=== PATIENT | female | born 1955 ===

== ENCOUNTER 2024-10-23 13:14 | Emergency (ER) | payer OTHER, BC ==
--- OUTSIDE RECORDS SUMMARY | 2024-10-23 13:33 | XMS REPORT | Continuity of Care Document ---
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 ophthalmic solution 1 drop carboxymeth ylcellulose PF (Refresh Plus) 0.5 % ophthalmic solution 1 drop 09-27 09:00: 00 09-28 03:09 :34 No 4803 1[drp] [id number] 3D 1 drop, Both Eyes, 3 times daily, First dose on Thu09/27/24 at 0900, Indication s: Xerophthal vinny (Dry Eye) [facility] insulin glargine (Lantus) pen 45 Units insulin glargine (Lantus) pen 45 Units 09-27 07:00: 00 09-29 09:22 :13 No 137 45U 45 Units, Subcutaneo us, Every morning, First dose (after last modificati on) on Thu09/27/24 at 0700, Indication s: Type 2 Diabetes Mellitus, Hold if pt is not eating or blood sugar less than 110. If held x3 doses , please notify or [facility] insulin glargine (Lantus) injection 42 Units insulin glargine (Lantus) injection 42 Units 09-26 18:00: 00 09-29 09:22 :20 No 137 42U 42 Units, Subcutaneo us, Every evening, First dose on Thu09/26/24 at 1800, Indication s: Type 2 Diabetes Mellitus [facility] melatonin tablet 3 mg melatonin tablet 3 mg 09-23 00:13: 45 Yes 12 3mg Q24H 3 mg, Oral, Daily PRN, sleep, Starting on Thu09/23/24 at 0013, Indication s: Insomnia [facility] insulin glargine (Lantus) pen 42 Units insulin glargine (Lantus) pen 42 Units 09-22 21:00: 00 09-26 15:25 :45 No 137 42U Q.5D 42 Units, Subcutaneo us, 2 times daily, First dose (after last modificati on) on Thu09/22/24 at 2100, Indication s: Type 2 Diabetes Mellitus, Hold if pt is not eating or blood sugar less than 110. If held x3 doses , please notify or KYRA Pack methocarbam ol (Robaxin) tablet 750 mg methocarbam ol (Robaxin) tablet 750 mg 09-22 11:20: 41 Yes 149 750mg Q8H 750 mg, Oral, Every 8 hours PRN, muscle spasms, Starting on Thu09/22/24 at 1120, Indication s: Musculoske letal Pain [facility] insulin lispro (HumaLOG, Admelog) injection 4-16 Units insulin lispro (HumaLOG, Admelog) injection 4-16 Units 09-22 09:23: 03 Yes 137 4U [id number] 3D 4-16 Units, Subcutaneo us, 3 times daily PRN, high blood sugar, with meals, Starting on Thu09/22/24 at 0923, For BG < 70, follow hypoglycem ia protocol and notify ordering provider. If patient can eat or drink, give oral carbohydra te as ordered per hypoglycem ia protocol. If patient NPO, give dextrose 50 % IV as ordered per hypoglycem ia protocol. If NPO and no IV access, give glucagon IM as ordered per hypoglycem ia protocol. Check BG every 15 minutes and repeat treatment if continued BG < 80., Correction Insulin Dosing: (DO NOT CHANGE DEFAULT SELECTION/ VALUES): Medium, BG 150-199: 3, BG 200-249: 6, BG 250-299: 9, BG >/= 300: 12, BG < 70 instructio ns: Follow Hypoglycem ia Orders, BG > 300 instructio ns: Contact Provider, BG 70-149 instructio ns: No Dose Needed, Indication s: Type 2 Diabetes Mellitus [facility]cdan[facility] clopidogrel (Plavix) tablet 75 mg clopidogrel (Plavix) tablet 75 mg 09-22 09:00: 00 Yes 586 75mg QD 75 mg, Oral, Daily, First dose (after last modificati on) on Thu09/22/24 at 0900, Indication s: Coronary Artery Bypass Graft, 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 [facility] Mcdaniels [facility] aspirin chewable tablet 81 mg aspirin chewable tablet 81 mg 09-22 09:00: 00 Yes 2525 81mg QD 81 mg, Oral, Daily, First dose (after last modificati on) on Thu09/22/24 at 0900, Indication s: Atheroscle rotic Disease, 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 [facility] furosemide (Lasix) tablet 40 mg furosemide (Lasix) tablet 40 mg 09-22 09:00: 00 09-28 14:33 :37 No 5396 40mg QD 40 mg, Oral, Daily, First dose (after last modificati on) on Thu09/22/24 at 0900, Indication s: Heart Failure, Hold for BP < 110/50 [facility] Pack heparin injection 5,000 Units heparin injection 5,000 Units 09-22 02:00: 00 09-22 09:25 :08 No 99957 5000U Q12H 5,000 Units, Subcutaneo us, Every 12 hours, First dose (after last modificati on) on Thu09/22/24 at 0200, Indication s: Prophylaxi s of Deep Vein Thrombosis in Thoracic Surgery, 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 [facility] insulin glargine (Lantus) pen 40 Units insulin glargine (Lantus) pen 40 Units 09-21 21:00: 00 09-22 09:23 :44 No 137 40U Q.5D 40 Units, Subcutaneo us, 2 times daily, First dose (after last modificati on) on Thu09/21/24 at 2100, Indication s: Type 2 Diabetes Mellitus, Hold if pt is not eating or blood sugar less than 110. If held x3 doses , please notify MD or STRAIGHT RULING MACHINE OPERATOR [facility] brimonidine (AlphaGAN) 0.2 % ophthalmic solution 1 drop brimonidine (AlphaGAN) 0.2 % ophthalmic solution 1 drop 09-21 09:00: 00 Yes 2609 1[drp] Q.5D 1 drop, Right Eye, 2 times daily, First dose (after last modificati on) on Thu09/21/24 at 0900, Indication s: Ocular Hypertensi on [facility] levoFLOXaci n (Levaquin) tablet 750 mg levoFLOXaci n (Levaquin) tablet 750 mg 09-21 09:00: 00 09-29 09:00 :00 No 3248 750mg QD 750 mg, Oral, Daily, First dose (after last modificati on) on Thu09/21/24 at 0900, For 9 days, Suspected Indication (Select all that apply): Urinary Tract Infection, Indication s: Uncomplica christian Urinary Tract Infection [facility] potassium chloride CR (Klor-Con M20) ER tablet 20 mEq potassium chloride CR (Klor-Con M20) ER tablet 20 mEq 09-21 09:00: 00 09-28 14:33 :37 No 507 20meq QD 20 mEq, Oral, Daily, First dose on Thu09/21/24 at 0900, Best given with food and plenty of water to minimize gastric irritation . Do not crush or chew., Indication s: Hypokalemi a [facility] furosemide (Lasix) tablet 40 mg furosemide (Lasix) tablet 40 mg 09-21 09:00: 00 09-21 15:58 :28 No 5396 40mg QD 40 mg, Oral, Daily, First dose on Thu09/21/24 at 0900, Indication s: Heart Failure [facility] clopidogrel (Plavix) tablet 75 mg clopidogrel (Plavix) tablet 75 mg 09-21 09:00: 00 09-21 15:58 :28 No 586 75mg QD 75 mg, Oral, Daily, First dose (after last modificati on) on Thu09/21/24 at 0900, Indication s: Coronary Artery Bypass Graft [facility] aspirin chewable tablet 81 mg aspirin chewable tablet 81 mg 09-21 09:00: 00 09-21 15:58 :28 No 2525 81mg QD 81 mg, Oral, Daily, First dose (after last modificati on) on Thu09/21/24 at 0900, Indication s: Atheroscle rotic Disease [facility] carvedilol (Coreg) tablet 3.125 mg carvedilol (Coreg) tablet 3.125 mg 09-21 08:00: 00 09-28 14:33 :37 No 87 3.125mg 3.125 mg, Oral, 2 times daily with meals, First dose (after last modificati on) on Thu09/21/24 at 0800, Indication s: Hypertensi on, Hold for SBP less than 100 and DBP less than 55 [facility] heparin injection 5,000 Units heparin injection 5,000 Units 09-21 02:00: 00 09-21 15:58 :28 No 48536 5000U Q12H 5,000 Units, Subcutaneo us, Every 12 hours, First dose (after last modificati on) on Thu09/21/24 at 0200, Indication s: Prophylaxi s of Deep Vein Thrombosis in Thoracic Surgery [facility] Mcdaniels [facility] timolol (Timoptic) 0.5 % ophthalmic solution 1 drop timolol (Timoptic) 0.5 % ophthalmic solution 1 drop 09-20 22:00: 00 Yes 2217 1[drp] Q.5D 1 drop, Both Eyes, 2 times daily, First dose on Thu09/20/24 at 2200, Indication s: Secondary Glaucoma [facility] Mcdaniels [facility] latanoprost (Xalatan) 0.005 % ophthalmic solution 1 drop latanoprost (Xalatan) 0.005 % ophthalmic solution 1 drop 09-20 22:00: 00 Yes 750 1[drp] 1 drop, Both Eyes, Nightly, First dose on Thu09/20/24 at 2200, Indication s: Glaucoma [facility] Mcdaniels [facility] sennosides (Senokot) tablet 17.2 mg sennosides (Senokot) tablet 17.2 mg 09-20 22:00: 00 09-26 16:00 :40 No 6645 2{tbl} Q.5D 17.2 mg (2 tablet), Oral, 2 times daily, First dose on Thu09/20/24 at 0, Indication s: Bowel Evacuation [facility] Mcdaniels [facility] methocarbam ol (Robaxin) tablet 750 mg methocarbam ol (Robaxin) tablet 750 mg 09-20 22:00: 00 09-22 11:21 :06 No 149 750mg Q8H 750 mg, Oral, Every 8 hours, First dose on Thu09/20/24 at 0, Indication s: Musculoske letal Pain [facility] insulin glargine (Lantus) pen 40 Units insulin glargine (Lantus) pen 40 Units 09-20 22:00: 00 09-21 15:58 :28 No 137 40U Q.5D 40 Units, Subcutaneo us, 2 times daily, First dose on Thu09/20/24 at 2199, Indication s: Type 2 Diabetes Mellitus [facility] ipratropium -albuterol (Duo-Neb) 0.5-2.5 mg/3 mL nebulizer solution 3 mL ipratropium -albuterol (Duo-Neb) 0.5-2.5 mg/3 mL nebulizer solution 3 mL 09-20 20:06: 17 Yes 945 3mL Q4H 3 mL, Nebulizati on, Every 4 hours PRN, wheezing, shortness of breath, Starting on Thu09/20/24 at 2005, Indication s: Chronic Obstructiv e Pulmonary Disease [facility] guaiFENesin (Robitussin ) 100 MG/5ML liquid 200 mg guaiFENesin (Robitussin ) 100 MG/5ML liquid 200 mg 09-20 19:56: 46 Yes 40 200mg Q.25D 200 mg, Oral, 4 times daily PRN, cough, Starting on Thu09/20/24 at 1955, Indication s: Cough [facility] acetaminoph en (Tylenol) tablet 650 mg acetaminoph en (Tylenol) tablet 650 mg 09-20 19:55: 09 Yes 49 650mg Q4H 650 mg, Oral, Every 4 hours PRN, mild pain (1-3), Starting on Thu09/20/24 at 1954, Max acetaminop hen = 4000mg/day (4gm/day), Indication s: Pain [facility] Potassium chloride solution 40 mEq Potassium chloride solution 40 mEq 09-20 13:45: 00 09-20 13:55 :00 No 40meq 40 mEq, Oral, Once, On Thu09/20/24 at 1345, For 1 dose, Mix with 4 oz (120ml) of water prior to administra tion Lemuel Mcdaniels [facility] insulin lispro (Humalog, Admelog) injection 5 Units insulin lispro (Humalog, Admelog) injection 5 Units 09-20 12:00: 00 Yes 5U 5 Units, Subcutaneo us, 3 times daily with meals, First dose (after last modificati on) on Thu09/20/24 at 1200, Administer if patient eats at least 50% of his meals [facility] Mcdaniels [facility] rosuvastati n (Crestor) tablet 20 mg rosuvastati n (Crestor) tablet 20 mg 09-20 09:00: 00 Yes 1779 20mg QD 20 mg, Oral, Daily, First dose on Thu09/20/24 at 0900, Indication s: Hyperlipid emia [facility]uel Mcdaniels [facility] insulin glargine (Basaglar KwikPen) 100 UNIT/ML pen insulin glargine (Basaglar KwikPen) 100 UNIT/ML pen 09-20 00:00: 00 10-20 23:59 :00 No 40U Q.5D Inject 40 Units under the skin in the morning and 40 Units in the evening. Lem[facility] Mcdaniels [facility] insulin lispro (HumaLOG, Admelog) 100 unit/ml injection insulin lispro (HumaLOG, Admelog) 100 unit/ml injection 09-20 00:00: 00 10-20 23:59 :00 No 4U [id number] 3D Inject 4-16 Units under the skin 3 times a day as needed for high blood sugar (with meals). See After Visit Summary for instructio ns on how to take your insulin. Lemuel Mcdaniels [facility] ipratropium -albuterol (Duo-Neb) 0.5-2.5 mg/3 mL nebulizer solution ipratropium -albuterol (Duo-Neb) 0.5-2.5 mg/3 mL nebulizer solution 09-20 00:00: 00 10-20 23:59 :00 No 3mL Q4H Take 3 mL by nebulizati on every 4 hours if needed for wheezing or shortness of breath. [facility] Pack acetaminoph en (Tylenol) 325 MG tablet acetaminoph en (Tylenol) 325 MG tablet 09-20 00:00: 00 09-30 23:59 :00 No 650mg Q4H Take 2 tablets by mouth every 4 hours if needed for mild pain (1-3) for up to 10 days. [facility] guaiFENesin (Robitussin ) 100 MG/5ML liquid guaiFENesin (Robitussin ) 100 MG/5ML liquid 09-20 00:00: 00 09-30 23:59 :00 No 200mg Q.25D Take 10 mL by mouth 4 times a day as needed for cough for up to 10 days. [facility] heparin 5000 units/mL injection heparin 5000 units/mL injection 09-20 00:00: 00 09-30 23:59 :00 No 48622 5000U Q12H Inject 1 mL under the skin in the morning and 1 mL in the evening. Do all this for 10 days. Lemuel Pack levoFLOXaci n (Levaquin) 750 MG tablet levoFLOXaci n (Levaquin) 750 MG tablet 09-20 00:00: 00 09-29 23:59 :00 No 750mg QD Take 1 tablet by mouth 1 time each day for 9 days. [facility] Pack doxycycline (Vibra-Tabs ) tablet 100 mg doxycycline (Vibra-Tabs ) tablet 100 mg 09-19 18:00: 00 Yes 100mg Q12H 100 mg, Oral, Every 12 hours, First dose on Thu09/19/24 at 1800, Suspected Indication (Select all that apply): Urinary Tract Infection [facility] insulin glargine (Lantus) injection 30 Units insulin glargine (Lantus) injection 30 Units 09-18 23:00: 00 Yes 30U 30 Units, Subcutaneo us, Once, On Thu09/18/24 at 2300, For 1 dose [facility] doxycycline (Vibra-Tabs ) tablet 100 mg doxycycline (Vibra-Tabs ) tablet 100 mg 09-18 17:00: 00 09-19 15:18 :24 No 100mg Q.5D 100 mg, Oral, 2 times daily, First dose on Thu09/18/24 at 1700, For 7 days, Suspected Indication (Select all that apply): Pneumonia [facility] ipratropium -albuterol (Duo-Neb) 0.5-2.5 mg/3 mL nebulizer solution 3 mL ipratropium -albuterol (Duo-Neb) 0.5-2.5 mg/3 mL nebulizer solution 3 mL 09-18 14:00: 00 Yes 3mL Q.25D 3 mL, Nebulizati on, Every 6 hours RT, First dose on Thu09/18/24 at 1400 [facility] guaiFENesin (Robitussin ) 100 MG/5ML liquid 200 mg guaiFENesin (Robitussin ) 100 MG/5ML liquid 200 mg 09-18 13:45: 00 Yes 200mg [id number] 3D 200 mg, Oral, 3 times daily, First dose on Thu09/18/24 at 1345 [facility] Pack budesonide (Pulmicort) 0.5 MG/2ML nebulizer solution 0.5 mg budesonide (Pulmicort) 0.5 MG/2ML nebulizer solution 0.5 mg 09-18 13:45: 00 09-19 19:10 :00 No .5mg Q.5D 0.5 mg, Nebulizati on, 2 times daily RT, First dose on Thu09/18/24 at 1345, For 2 days, Rinse mouth with water after use to reduce aftertaste and incidence of candidiasi s. Do not swallow. [facility] Pack cefTRIAXone (Rocephin) 2 g in sterile water injection cefTRIAXone (Rocephin) 2 g in sterile water injection 09-18 13:32: 41 09-28 13:44 :00 No 2g 2 g, Intravenou s, Administer over 5 Minutes, Every 24 hours, First dose (after last modificati on) on Thu09/18/24 at 1345, For 10 doses, Reconstitu te vial with 20 mL sterile water for injection. Prepare dose at bedside immediatel y prior to administra tion. Reconstitu tion: Shake immediatel y and vigorously . Withdraw entire contents and give IV push slowly over specified time., Suspected Indication (Select all that apply): Pneumonia [facility] Pack ipratropium -albuterol (Duo-Neb) 0.5-2.5 mg/3 mL nebulizer solution 3 mL ipratropium -albuterol (Duo-Neb) 0.5-2.5 mg/3 mL nebulizer solution 3 mL 09-17 13:00: 45 Yes 3mL Q4H 3 mL, Nebulizati on, Every 4 hours PRN, wheezing, shortness of breath, Starting on Thu09/17/24 at 1300 [facility] Glucerna Carbsteady liquid 1 Container Glucerna Carbsteady liquid 1 Container 09-16 17:00: 00 Yes 1{conta iner} 1 Container, Oral, 3 times daily with meals, First dose on Thu09/16/24 at 1700, Erika , Does this product need to be thickened? No [facility] Pack insulin lispro (Humalog, Admelog) injection 6 Units insulin lispro (Humalog, Admelog) injection 6 Units 09-16 17:00: 00 09-20 09:08 :25 No 6U 6 Units, Subcutaneo us, 3 times daily with meals, First dose on Thu09/16/24 at 1700, Administer if patient eats at least 50% of his meals [facility] furosemide (Lasix) injection 40 mg furosemide (Lasix) injection 40 mg 09-16 12:26: 00 Yes 40mg QD 40 mg, Intravenou s, Daily, First dose (after last modificati on) on Thu09/16/24 at 1230 [facility] guaiFENesin (Robitussin ) 100 MG/5ML liquid 200 mg guaiFENesin (Robitussin ) 100 MG/5ML liquid 200 mg 09-16 10:05: 23 Yes 200mg Q.25D 200 mg, Oral, 4 times daily PRN, cough, Starting on Thu09/16/24 at 1005 [facility] Pack Boost Glucose Control liquid 237 mL Boost Glucose Control liquid 237 mL 09-16 09:00: 00 Yes 1{conta iner} 237 mL (1 Container) , Oral, 3 times daily with meals, First dose on Thu09/16/24 at 0900, Vanilla flavor , Does this product need to be thickened? No [facility] Pack ceFAZolin (Ancef) 2 g in sterile water injection ceFAZolin (Ancef) 2 g in sterile water injection 09-15 23:30: 00 09-18 12:38 :58 No 2g Q8H 2 g, Intravenou s, at 200 mL/hr, Administer over 6 Minutes, Every 8 hours, First dose on Thu09/15/24 at 2330, For 7 days, Reconstitu te each vial with 10 mL sterile water for injection. (20 mL total needed) Prepare dose at bedside immediatel y prior to administra tion. Reconstitu tion: Shake immediatel y and vigorously . Withdraw entire contents of the 1st vial and give IV push slowly over specified time. Withdraw entire contents of the 2nd vial and give IV push slowly over specified time., Suspected Indication (Select all that apply): Bloodstrea m Infection [facility] insulin glargine (Lantus) injection 50 Units insulin glargine (Lantus) injection 50 Units 09-15 21:00: 00 Yes 50U Q.5D 50 Units, Subcutaneo us, Every 12 hours scheduled, First dose (after last modificati on) on Thu09/15/24 at 2100 [facility] Pack heparin injection 5,000 Units heparin injection 5,000 Units 09-15 14:15: 00 Yes 5000U Q12H 5,000 Units, Subcutaneo us, Every 12 hours, First dose on Thu09/15/24 at 1415 [facility] Pack cefepime (Maxipime) 2 g in sodium chloride 0.9 % 100 mL IVPB-MB+ cefepime (Maxipime) 2 g in sodium chloride 0.9 % 100 mL IVPB-MB+ 09-14 16:00: 00 2025- 03-20 20:46 :00 No 2g Q12H 2 g, Intravenou s, at 25 mL/hr, Administer over 4 Hours, Every 12 hours, First dose (after last modificati on) on Thu09/14/24 at 1600, For 3 doses, Mini-Bag Plus bag. Break seal and mix before use, as follows: For liquid drug vials, skip to step 2. 1. Hold bag with vial down. Squeeze solution into vial until half-full. Shake to suspend drug in solution. 2. Hold bag with vial upside down. Squeeze bag to force air into vial, then release to drain suspended drug from vial into bag. 3. Repeat above until vial is empty of drug and solution is thoroughly mixed. Ensure drug is completely dissolved. Do not remove drug vial. 4. Remove port protector, attach admin set per its instructio ns, then hang container from IV pole and prime set per directions . Do not use in series connection s. 5. Ensure the vial is empty of drug and in solution, then administer medication as ordered. Use within specified BUD., Suspected Indication (Select all that apply): Suspected Sepsis [facility] Mcdaniels [facility] acetaminoph en (Tylenol) tablet 650 mg acetaminoph en (Tylenol) tablet 650 mg 09-14 13:52: 03 Yes 650mg Q4H [Order 1 Start] Name: acetaminop hen (Tylenol) tablet 650 mg Signed Summary: 650 mg, Oral, Every 4 hours PRN, mild pain (1-3), Starting on Thu09/14/24 at 1352, If inadequate response within 60 minutes, proceed to next-line agent for same PRN reason or contact provider if no further options ordered. [Order 1 End] [Order 2 Start] Name: acetaminop hen (Tylenol) solution 650 mg Signed Summary: 650 mg, Oral, Every 4 hours PRN, mild pain (1-3), Starting on Thu09/14/24 at 1352, Give oral liquid if patient prefers or per feeding tube if present. If inadequate response within 60 minutes, proceed to next-line agent for same PRN reason or contact provider if no further options ordered. [Order 2 End] [Order 3 Start] Name: acetaminop hen (Tylenol) suppositor y 650 mg Signed Summary: 650 mg, Rectal, Every 4 hours PRN, mild pain (1-3), Starting on Thu09/14/24 at 1352, Give AR if unable to administer by mouth or feeding tube. If inadequate response within 60 minutes, proceed to next-line agent for same PRN reason or contact provider if no further options ordered. [Order 3 End] [facility] furosemide (Lasix) injection 40 mg furosemide (Lasix) injection 40 mg 09-14 13:45: 00 09-16 09:00 :15 No 40mg Q.5D 40 mg, Intravenou s, 2 times daily, First dose (after last modificati on) on Thu09/14/24 at 1345 [facility] insulin lispro (HumaLOG, Admelog) injection 4-16 Units 655003 3157-0 3-19 10:29: 03 Yes 4U [id number] 3D 4-16 Units, Subcutaneo us, 3 times daily PRN, high blood sugar, with meals, Starting on Thu09/14/24 at 1029, For BG < 70, follow hypoglycem ia protocol and notify ordering provider. If patient can eat or drink, give oral carbohydra te as ordered per hypoglycem ia protocol. If patient NPO, give dextrose 50 % IV as ordered per hypoglycem ia protocol. If NPO and no IV access, give glucagon IM as ordered per hypoglycem ia protocol. Check BG every 15 minutes and repeat treatment if continued BG < 80., Correction Insulin Dosing: (DO NOT CHANGE DEFAULT SELECTION/ VALUES): High, BG < 70 instructio ns: Follow Hypoglycem ia Orders, BG 70-149 instructio ns: No Dose Needed, BG 150-199: 4, BG 200-249: 8, BG 250-299: 12, BG >/= 300: 16, BG > 300 instructio ns: Contact Provider [facility] Pack dextrose 50 % solution 25 g dextrose 50 % solution 25 g 09-14 10:28: 21 Yes 25g 25 g, Intravenou s, As needed, other, if Blood Glucose </= 50 mg/dL, Starting on Thu09/14/24 at 1028, If BG </=50 mg/dL, give 50 mL of D50W IV push STAT and notify MD. Lem[facility] Pack dextrose 50 % solution 12.5 g dextrose 50 % solution 12.5 g 09-14 10:28: 21 Yes 12.5g 12.5 g, Intravenou s, As needed, low blood sugar, if Blood Glucose 51- 69 mg/dL, Starting on Thu09/14/24 at 1028, For BG 51-69 mg/dL and patient UNCONSCIOU S OR UNABLE TO SWALLOW OR NPO: Give 25 mL of D50W IV push and notify MD. [facility] Pack insulin glargine (Lantus) injection 40 Units insulin glargine (Lantus) injection 40 Units 09-14 10:25: 00 09-15 15:07 :02 No 40U Q.5D 40 Units, Subcutaneo us, Every 12 hours scheduled, First dose on Thu09/14/24 at 1025 [facility] Pack clopidogrel (Plavix) tablet 75 mg clopidogrel (Plavix) tablet 75 mg 09-14 09:00: 00 Yes 75mg QD 75 mg, Oral, Daily, First dose on Thu09/14/24 at 0900 [facility] Pack rosuvastati n (Crestor) tablet 20 mg rosuvastati n (Crestor) tablet 20 mg 09-14 09:00: 00 Yes 20mg QD 20 mg, Oral, Daily, First dose on Thu09/14/24 at 0900 [facility] Pack aspirin chewable tablet 81 mg aspirin chewable tablet 81 mg 09-14 09:00: 00 Yes 81mg QD 81 mg, Oral, Daily, First dose on Thu09/14/24 at 0900 [facility] Pack carvedilol (Coreg) tablet 3.125 mg carvedilol (Coreg) tablet 3.125 mg 09-14 08:00: 00 Yes 3.125mg 3.125 mg, Oral, 2 times daily with meals, First dose on Thu09/14/24 at 0800 [facility] furosemide (Lasix) injection 40 mg furosemide (Lasix) injection 40 mg 09-14 06:15: 00 Yes 40mg 40 mg, Intravenou s, Once, On Thu09/14/24 at 0615, For 1 dose Sherinsarah Mcdaniels Epic glucagon injection 1 mg glucagon injection 1 mg 09-14 06:13: 02 Yes 1mg 1 mg, Intramuscu lar, As needed, For BG < 70 mg/dL if no IV access and patient is either Unconsciou s, unable to swallow or npo, Starting on Thu09/14/24 at 0613, For BG < 70 mg/dL if no IV access and patient is either Unconsciou s, unable to swallow or npo and notify MD. [facility]uel aguayo [place] [facility] heparin 50 units/mL in sodium chloride 0.45 % heparin 50 units/mL in sodium chloride 0.45 % 09-14 04:35: 00 09-14 11:09 :23 No .1U/kg/ h 0.1-40 Units/kg/h r ?80.1 kg (0.1602-64 .08 mL/hr, rounded to 0.16-64.08 mL/hr), Intravenou s, Continuous , Starting on Thu09/14/24 at 0435, Heparin Protocol - ACS PTT Weight Based Calculate heparin boluses and infusion dose using ACTUAL BODY WEIGHT. IV Initial Loading Dose for ACS 60 units/kg (Max 4,000 units) Start at 12 units/kg/h r (MAX INITIAL INFUSION = 1,000 units/hr = 20 mL/hr) - adjust per ACS Guidelines below Draw baseline PTT. Initiate drip. DO NOT wait for PTT results to start drip. Draw PTT 6 hours after drip initiation and 6 hours after every dose change. Do not draw PTT through line heparin is infused --- Titration Table PTT < 45 sec: IV Bolus = 40 units/kg (Actual Body Weight) (max 5,000 units). INCREASE dose by 4 units/kg/h r. Notify Provider. Draw PTT 6 hours after increase in dose. PTT 45 - 55.9 sec: IV Bolus = 20 units/kg (Actual Body Weight) (max 2,500 units). INCREASE dose by 2 units/kg/h r. Draw PTT 6 hours after increase in dose. PTT 56 - 64.9 sec: INCREASE dose by 2 units/kg/h r (Actual Body Weight). Draw PTT 6 hours after increase in dose. PTT 65 - 85.9 sec: Therapeuti c, continue at same dose. Redraw PTT in 6 hours to confirm. Once 3 consecutiv e therapeuti c PTT, reduce draws to Q12H. PTT 86 - 100.9 sec: DECREASE dose by 1 unit/kg/hr (Actual Body Weight). Draw PTT 6 hours after decrease in dose. PTT 101 - 119.9 sec: HOLD infusion for 45 minutes. DECREASE dose by 2 units/kg/h r (Actual Body Weight). Draw PTT 6 hours after decrease in dose. PTT 120 - 150.9 sec: HOLD infusion for 60 minutes. Notify provider STAT. Then, DECREASE dose by 3 units/kg/h r (Actual Body Weight). Draw PTT 6 hours after decrease in dose. PTT 151 - 199.9 sec: HOLD infusion for 60 minutes. Notify provider STAT. Then, DECREASE dose by 4 units/kg/h r (Actual Body Weight). Draw PTT 6 hours after decrease in dose. PTT >/= 200 sec: HOLD infusion and repeat PTT STAT through venipunctu re or separate line. Notify provider STAT. 1. If repeat PTT < 200 sec, then follow above protocol 2. If repeat PTT >/= 200 sec, then continue to HOLD infusion & repeat PTT every 2 hours until PTT < 120 sec. Then, DECREASE previous dose by 5 units/kg/h r. Draw PTT 6 hours after decrease in dose. --- [facility] heparin 1000 units/mL injection 4,000 Units heparin 1000 units/mL injection 4,000 Units 09-14 04:35: 00 09-14 05:35 :00 No 4000U 4,000 Units, Intravenou s, Once, On Thu09/14/24 at 0435, For 1 dose, Initial loading dose. ACS Heparin Weight Based Dosing Protocol - PTT. IV Initial Loading Dose for ACS = 60 units/kg (max 4,000 units) [facility] aspirin chewable tablet 324 mg aspirin chewable tablet 324 mg 09-14 04:35: 00 09-14 05:07 :00 No 324mg 324 mg, Oral, Once, On Thu09/14/24 at 0435, For 1 dose [facility] iohexol (OMNIPaque) 350 MG/ML injection 100 mL iohexol (OMNIPaque) 350 MG/ML injection 100 mL 09-14 03:27: 10 09-14 03:31 :00 No 100mL 100 mL, Intravenou s, Once in imaging, Starting on Thu09/14/24 at 0327, For 1 dose [facility] vancomycin in NS (Vancocin) IVPB 2,000 mg vancomycin in NS (Vancocin) IVPB 2,000 mg 09-14 02:55: 00 09-14 05:56 :00 No 2000mg 2,000 mg, Intravenou s, at 250 mL/hr, Administer over 120 Minutes, Once, On Thu09/14/24 at 0255, For 1 dose, premix bag, Suspected Indication (Select all that apply): Suspected Sepsis [facility] cefepime (Maxipime) 2 g in sterile water injection cefepime (Maxipime) 2 g in sterile water injection 09-14 02:55: 00 09-14 03:52 :00 No 2g 2 g, Intravenou s, at 240 mL/hr, Administer over 5 Minutes, Once, On Thu09/14/24 at 0255, For 1 dose, Reconstitu te vial with 20 mL sterile water for injection. Prepare dose at bedside immediatel y prior to administra tion. Reconstitu tion: Shake immediatel y and vigorously . Withdraw entire contents and give IV push slowly over specified time., Suspected Indication (Select all that apply): Suspected Sepsis [facility] sulfamethox azole-trime thoprim (Bactrim DS) 800-160 MG per tablet 160 mg sulfamethox azole-trime thoprim (Bactrim DS) 800-160 MG per tablet 160 mg 09-13 21:15: 00 09-14 11:43 :35 No 677 160mg Q12H 160 mg, Oral, Every 12 hours, First dose on Thu09/13/24 at 2115, For 3 days, Suspected Indication (Select all that apply): Urinary Tract Infection, Indication s: Urinary Tract Infection [facility] aspirin EC EC tablet 81 mg aspirin EC EC tablet 81 mg 09-13 09:00: 00 09-14 11:43 :35 No 81mg QD 81 mg, Oral, Daily, First dose (after last modificati on) on Thu09/13/24 at 0900, Do not crush, chew, or split., Indication s: Coronary Artery disease . 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 [facility] insulin glargine (Lantus) injection 25 Units insulin glargine (Lantus) injection 25 Units 09-12 18:00: 00 09-14 11:43 :35 No 137 25U 25 Units, Subcutaneo us, Every evening, First dose (after last modificati on) on Thu09/12/24 at 1800, Indication s: Type 2 Diabetes Mellitus [facility] furosemide (Lasix) tablet 40 mg furosemide (Lasix) tablet 40 mg 09-12 16:00: 00 09-14 11:43 :35 No 81 40mg 40 mg, Oral, 2 times daily (02/11), First dose (after last modificati on) on Thu09/12/24 at 1600, For 4 days, Indication s: Edema, Hold for BP < 110/50, On hold since Thu09/13/2024 at 1805 until manually unheld Lem[facility] Mcdaniels [facility] spironolact one (Aldactone) tablet 25 mg spironolact one (Aldactone) tablet 25 mg 09-12 15:30: 00 09-14 11:43 :35 [place] [id number] 25mg QD 25 mg, Oral, Daily, First dose on Thu09/12/24 at 1530, Indication s: Left Systolic Heart Failure Lem[facility] Mcdaniels [facility] dapaglifloz in (Farxiga) tablet 5 mg dapaglifloz in (Farxiga) tablet 5 mg 09-12 15:30: 00 09-14 11:43 :35 No 5396 5mg QD 5 mg, Oral, Daily, First dose on Thu09/12/24 at 1530, Indication s: Heart Failure Lemuel Mcdaniels [facility] furosemide (Lasix) tablet 40 mg furosemide (Lasix) tablet 40 mg 2024-09-11 16:20: 00 Yes 81 40mg 40 mg, Oral, Once, On Thu09/11/24 at 1630, For 1 dose, Indication s: Edema, SOB [facility] clopidogrel (Plavix) tablet 75 mg clopidogrel (Plavix) tablet 75 mg 09-10 09:00: 00 09-14 11:43 :35 No 75mg QD 75 mg, Oral, Daily, First dose (after last modificati on) on 09/10/24 at 0900, Indication s: blood clot, Hold medication for signs of bleeding and notify or STRAIGHT RULING MACHINE OPERATOR [facility] furosemide (Lasix) tablet 40 mg furosemide (Lasix) tablet 40 mg 09-10 09:00: 00 09-12 14:29 :25 No 81 40mg QD 40 mg, Oral, Daily, First dose (after last modificati on) on 09/10/24 at 0900, Indication s: Edema, Hold for BP < 110/50 [facility] aspirin EC EC tablet 81 mg aspirin EC EC tablet 81 mg 09-10 09:00: 00 09-12 12:13 :32 No 49 81mg QD 81 mg, Oral, Daily, First dose (after last modificati on) on 09/10/24 at 0900, Do not crush, chew, or split., Indication s: Pain, Hold medication for signs of bleeding and notify or KYRA Pack insulin glargine (Lantus) pen 50 Units insulin glargine (Lantus) pen 50 Units 09-10 07:00: 00 09-14 11:43 :35 No 252 50U 50 Units, Subcutaneo us, Every morning, First dose (after last modificati on) on 09/10/24 at 0700, Indication s: Hyperglyce vinny, Hold if pt is not eating or blood sugar less than 110. If held x3 doses , please notify or STRAIGHT RULING MACHINE OPERATOR [facility] insulin glargine (Lantus) injection 10 Units insulin glargine (Lantus) injection 10 Units 09-09 18:00: 00 09-12 14:29 :26 No 137 10U 10 Units, Subcutaneo us, Every evening, First dose on Thu09/09/24 at 1800, Indication s: Type 2 Diabetes Mellitus [facility] carvedilol (Coreg) tablet 3.125 mg carvedilol (Coreg) tablet 3.125 mg 09-09 17:00: 00 09-14 11:43 :35 No 5396 3.125mg 3.125 mg, Oral, 2 times daily with meals, First dose (after last modificati on) on Thu09/09/24 at 1700, Indication s: Heart Failure, Hold for BP <110/50 or HR < 60 If held x 3 doses , notify or STRAIGHT RULING MACHINE OPERATOR [facility] insulin lispro (Humalog, Admelog) injection 10 Units insulin lispro (Humalog, Admelog) injection 10 Units 09-09 11:30: 00 09-14 11:43 :35 No 252 10U 10 Units, Subcutaneo us, 3 times daily before meals, First dose (after last modificati on) on Thu09/09/24 at 1130, Indication s: Hyperglyce vinny, Hold if pt is not eating or blood sugar less than 110. If held x3 doses , please notify or STRAIGHT RULING MACHINE OPERATOR [facility] insulin glargine (Lantus) pen 40 Units insulin glargine (Lantus) pen 40 Units 09-09 07:00: 00 09-09 10:29 :17 No 252 40U 40 Units, Subcutaneo us, Every morning, First dose (after last modificati on) on Thu09/09/24 at 0700, Indication s: Hyperglyce vinny [facility] furosemide (Lasix) tablet 40 mg furosemide (Lasix) tablet 40 mg 09-09 04:30: 00 Yes 5396 40mg 40 mg, Oral, Once, On Thu09/09/24 at 0430, For 1 dose, Indication s: Heart Failure [facility] rosuvastati n (Crestor) tablet 20 mg rosuvastati n (Crestor) tablet 20 mg 09-08 21:00: 00 09-14 11:43 :36 No 1779 20mg 20 mg, Oral, Nightly, First dose on Thu09/08/24 at 2100, Indication s: Hyperlipid emia [facility] latanoprost (Xalatan) 0.005 % ophthalmic solution 1 drop latanoprost (Xalatan) 0.005 % ophthalmic solution 1 drop 09-08 21:00: 00 09-14 11:43 :36 No 750 1[drp] 1 drop, Both Eyes, Nightly, First dose on Thu09/08/24 at 2100, Indication s: Glaucoma [facility] furosemide (Lasix) tablet 20 mg furosemide (Lasix) tablet 20 mg 09-08 14:00: 00 Yes 81 20mg 20 mg, Oral, Once, On Thu09/08/24 at 1400, For 1 dose, Indication s: Edema [facility] acetaminoph en (Tylenol 8 Hour) ER tablet 650 mg acetaminoph en (Tylenol 8 Hour) ER tablet 650 mg 09-08 10:30: 00 09-14 11:43 :36 No 49 650mg [id number] 3D 650 mg, Oral, Every 8 hours scheduled, First dose on Thu09/08/24 at 1030, Do not crush, chew, or split., Indication s: Pain [facility] Mcdaniels [facility] melatonin tablet 5 mg melatonin tablet 5 mg 09-08 10:19: 56 09-14 11:43 :35 No 12 5mg QD 5 mg, Oral, Nightly PRN, sleep, Starting on Thu09/08/24 at 1019, Indication s: Insomnia [facility] insulin glargine (Lantus) pen 35 Units insulin glargine (Lantus) pen 35 Units 09-08 10:15: 00 09-08 11:47 :58 No 252 35U 35 Units, Subcutaneo us, Every morning, First dose (after last modificati on) on Thu09/08/24 at 1015, Indication s: Hyperglyce vinny [facility] Mcdaniels [facility] sennosides (Senokot) tablet 17.2 mg sennosides (Senokot) tablet 17.2 mg 09-08 10:13: 51 09-14 11:43 :36 No 112 2{tbl} Q.5D 17.2 mg (2 tablet), Oral, 2 times daily PRN, constipati on, or if no BM within 1 day, Starting on Thu09/08/24 at 1013, Indication s: Constipati on Memoria govind Pack polyethylen e glycol (PEG) 3350 (Miralax) packet 17 g polyethylen e glycol (PEG) 3350 (Miralax) packet 17 g 09-08 10:05: 54 09-14 11:43 :36 No 112 17g Q24H 17 g, Oral, Daily PRN, constipati on, or if no BM in 1 day, Starting on Thu09/08/24 at 1005, Dissolve 17 gram package in 4 or 8 oz of juice or water Dissolve 17 g in 120 to 240 mL (4 to 8 ounces) of beverage., Indication s: Constipati on oria govind Pack timolol (Timoptic) 0.5 % ophthalmic solution 1 drop timolol (Timoptic) 0.5 % ophthalmic solution 1 drop 09-08 09:00: 00 09-14 11:43 :36 No 1346 1[drp] Q.5D 1 drop, Both Eyes, 2 times daily, First dose on Thu09/08/24 at 0900, Indication s: Open-Angle Glaucoma [facility] methocarbam ol (Robaxin) tablet 750 mg methocarbam ol (Robaxin) tablet 750 mg 09-08 09:00: 00 09-14 11:43 :36 No 2289 750mg [id number] 3D 750 mg, Oral, 3 times daily, First dose on Thu09/08/24 at 0900, Indication s: Postoperat jaleel Pain [facility] brimonidine (AlphaGAN) 0.2 % ophthalmic solution 1 drop brimonidine (AlphaGAN) 0.2 % ophthalmic solution 1 drop 09-08 09:00: 00 09-14 11:43 :36 No 2609 1[drp] Q.5D 1 drop, Right Eye, 2 times daily, First dose on Thu09/08/24 at 0900, Indication s: Ocular Hypertensi on [facility] potassium chloride CR (Klor-Con M20) ER tablet 20 mEq potassium chloride CR (Klor-Con M20) ER tablet 20 mEq 09-08 09:00: 00 09-13 14:33 :43 No 507 20meq QD 20 mEq, Oral, Daily, First dose on [facility] 09/08/24 at 0900, Best given with food and plenty of water to minimize gastric irritation . Do not crush or chew., Indication s: Hypokalemi a [facility] furosemide (Lasix) tablet 40 mg furosemide (Lasix) tablet 40 mg 09-08 09:00: 00 09-09 10:29 :17 No 81 40mg QD 40 mg, Oral, Daily, First dose on [facility] 09/08/24 at 0900, Indication s: Edema [facility] clopidogrel (Plavix) tablet 75 mg clopidogrel (Plavix) tablet 75 mg 09-08 09:00: 00 09-09 10:29 :17 No 75mg QD 75 mg, Oral, Daily, First dose on [place] 09/08/24 at 0900, Indication s: blood clot [facility] aspirin EC EC tablet 81 mg aspirin EC EC tablet 81 mg 09-08 09:00: 00 09-09 10:29 :17 No 49 81mg QD 81 mg, Oral, Daily, First dose on [facility] 09/08/24 at 0900, Do not crush, chew, or split., Indication s: Pain [facility] sennosides (Senokot) tablet 17.2 mg sennosides (Senokot) tablet 17.2 mg 09-08 09:00: 00 09-08 10:14 :05 No 112 2{tbl} Q.5D 17.2 mg (2 tablet), Oral, 2 times daily, First dose on [place] 09/08/24 at 0900, Indication s: Constipati on [facility] polyethylen e glycol (PEG) 3350 (Miralax) packet 17 g polyethylen e glycol (PEG) 3350 (Miralax) packet 17 g 09-08 09:00: 00 09-08 10:06 :49 No 112 17g QD 17 g, Oral, Daily, First dose on Thu09/08/24 at 0900, Dissolve 17 gram package in 4 or 8 oz of juice or water Dissolve 17 g in 120 to 240 mL (4 to 8 ounces) of beverage., Indication s: Constipati on [facility] carvedilol (Coreg) tablet 3.125 mg carvedilol (Coreg) tablet 3.125 mg 09-08 08:00: 00 09-09 10:29 :17 No 5396 3.125mg 3.125 mg, Oral, 2 times daily with meals, First dose on Thu09/08/24 at 0800, Indication s: Heart Failure [facility] insulin lispro (Humalog, Admelog) injection 10 Units insulin lispro (Humalog, Admelog) injection 10 Units 09-08 07:30: 00 09-09 10:29 :17 No 252 10U 10 Units, Subcutaneo us, 3 times daily before meals, First dose on Thu09/08/24 at 0730, Indication s: Hyperglyce vinny [facility] clopidogrel (Plavix) 75 MG tablet clopidogrel (Plavix) 75 MG tablet 09-08 00:00: 00 10-08 23:59 :00 Yes 75mg QD Take 1 tablet by mouth 1 time each day. [facility] furosemide (Lasix) 40 MG tablet furosemide (Lasix) 40 MG tablet 09-08 00:00: 00 10-08 23:59 :00 No 40mg QD Take 1 tablet by mouth 1 time each day. [facility] potassium chloride CR (Klor-Con M20) 20 MEQ ER tablet potassium chloride CR (Klor-Con M20) 20 MEQ ER tablet 09-08 00:00: 00 10-08 23:59 :00 No 20meq QD Take 1 tablet by mouth 1 time each day. Do not crush or chew. [facility] polyethylen e glycol, PEG, 3350 (Miralax) 17 g packet polyethylen e glycol, PEG, 3350 (Miralax) 17 g packet 09-08 00:00: 00 09-20 00:00 :00 No 17g QD Take 17 g by mouth 1 time each day for 3 days. [facility] dextrose 50 % solution 12.5 g dextrose 50 % solution 12.5 g 09-07 20:16: 33 09-14 11:43 :36 No 244 12.5g [facility] rosuvastati n (Crestor) 5 MG tablet rosuvastati n (Crestor) 5 MG tablet 09-07 18:45: 06 09-07 00:00 :00 No 5mg QD Take 5 mg by mouth 1 time each day. [facility] multivitami n (Theragran) tablet multivitami n (Theragran) tablet 09-07 18:45: 06 09-07 00:00 :00 No 1{tbl} QD Take 1 tablet by mouth 1 time each day. [facility] metoprolol tartrate (Lopressor) 25 MG tablet metoprolol tartrate (Lopressor) 25 MG tablet 09-07 18:45: 06 09-07 00:00 :00 No 25mg Take 25 mg by mouth 1 time. Patient took 1/2 tab night of surgery,1/ 2 tab morning of surgery for CAB [facility] Insulin Glargine (BASAGLAR KWIKPEN SC) Insulin Glargine (BASAGLAR KWIKPEN SC) 09-07 18:45: 03 09-20 00:00 :00 No 35U/d Q.5D Inject 35 Units/day under the skin in the morning and 35 Units/day in the evening. [facility] timolol (Betimol) 0.25 % ophthalmic solution timolol (Betimol) 0.25 % ophthalmic solution 09-07 18:44: 59 08-26 00:00 :00 No 2[drp] Q.5D Administer 2 drops into both eyes in the morning and 2 drops in the evening. [facility] carvedilol (Coreg) tablet 3.125 mg carvedilol (Coreg) tablet 3.125 mg 09-07 17:00: 00 Yes 3.125mg 3.125 mg, Oral, 2 times daily with meals, First dose on Thu09/07/24 at 1700, Hold for SBP < 100, HR < 65 [facility] insulin lispro (Humalog, Admelog) injection 10 Units insulin lispro (Humalog, Admelog) injection 10 Units 09-07 16:30: 00 Yes 10U 10 Units, Subcutaneo us, 3 times daily before meals, First dose (after last modificati on) on Thu09/07/24 at 1630, Before Breakfast, Lunch and Dinner ONLY. If pre-lunch and bedtime glucose is persistent ly above target, MD to consider increasing Basal dose by 20%. Lemuel aPck insulin lispro (Humalog, Admelog) injection 10 Units insulin lispro (Humalog, Admelog) injection 10 Units 09-07 13:45: 00 Yes 10U 10 Units, Subcutaneo us, Once, On Thu09/07/24 at 1345, For 1 dose [facility] rosuvastati n (Crestor) 20 MG tablet rosuvastati n (Crestor) 20 MG tablet 09-07 00:00: 00 10-07 23:59 :00 No 20mg Take 1 tablet by mouth at bedtime. Lem[facility] Mcdaniels [facility] carvedilol (Coreg) 3.125 MG tablet carvedilol (Coreg) 3.125 MG tablet 09-07 00:00: 00 10-07 23:59 :00 No 3.125mg Take 1 tablet by mouth in the morning and 1 tablet in the evening. Take with meals. [facility] sennosides (Senokot) 8.6 MG tablet sennosides (Senokot) 8.6 MG tablet 09-07 00:00: 00 10-07 23:59 :00 No 17.2mg Q.5D Take 2 tablets by mouth in the morning and 2 tablets in the evening. [facility] insulin lispro (Humalog, Admelog) 100 UNIT/ML injection insulin lispro (Humalog, Admelog) 100 UNIT/ML injection 09-07 00:00: 00 09-20 00:00 :00 No 10U Inject 10 Units under the skin in the morning and 10 Units at noon and 10 Units in the evening. Inject before meals. [facility] Pack methocarbam ol (Robaxin) 750 MG tablet methocarbam ol (Robaxin) 750 MG tablet 09-07 00:00: 00 09-17 23:59 :00 Yes 750mg Q8H Take 1 tablet by mouth in the morning and 1 tablet at noon and 1 tablet before bedtime. Do all this for 10 days. [facility] clopidogrel (Plavix) 75 MG tablet clopidogrel (Plavix) 75 MG tablet 09-07 00:00: 00 09-07 00:00 :00 No 586 75mg QD Take 1 tablet by mouth 1 time each day for 180 doses. [facility] furosemide (Lasix) injection 40 mg furosemide (Lasix) injection 40 mg 09-06 08:15: 00 Yes 40mg 40 mg, Intravenou s, Once, On Thu09/06/24 at 0815, For 1 dose, Please give the lasix after the 1st unit of blood. [facility] acetaminoph en (Tylenol) tablet 1,000 mg acetaminoph en (Tylenol) tablet 1,000 mg 09-05 17:45: 00 Yes 1000mg Q6H 1,000 mg, Oral, Every 6 hours PRN, mild pain (1-3), Starting on Thu09/05/24 at 1745, Max acetaminop hen = 4000mg/day (4gm/day) Lemuel Pack silver nitrate applicator silver nitrate applicator 09-05 15:45: 00 09-06 10:04 :00 No Topical, Once, On Thu09/05/24 at 1545, For 1 dose, Please have 2 silver nitrate sticks at the bed side today. [facility] Pack furosemide (Lasix) injection 40 mg furosemide (Lasix) injection 40 mg 09-04 17:30: 00 Yes 40mg 40 mg, Intravenou s, Once, On [place] 09/04/24 at 1730, For 1 dose, After PRBC transfusio n [facility] Pack potassium chloride CR (Klor-Con M20) ER tablet 20 mEq potassium chloride CR (Klor-Con M20) ER tablet 20 mEq 09-03 09:00: 00 Yes 20meq QD 20 mEq, Oral, Daily, First dose on 09/03/24 at 0900, For patients able to take medication s orally or via feeding tube >/= 14 [place], may dissolve each 20 mEq tablet in 4 oz of water. Allow about 2 minutes for the tablets to disintegra te. Stir before giving to prepare slurry and administer . Please exclude patient's with feeding tube less than 14 [place] (Dobhoff, J-tube, etc) and pediatric and patients Do not crush or chew. [facility] furosemide (Lasix) tablet 40 mg furosemide (Lasix) tablet 40 mg 09-03 09:00: 00 Yes 40mg QD 40 mg, Oral, Daily, First dose on [facility] 09/03/24 at 0900 Lemuel Pack labetalol injection 10 mg labetalol injection 10 mg 09-03 06:15: 00 09-03 09:28 :00 No 10mg 10 mg, Intravenou s, Once, On [facility] 09/03/24 at 0615, For 1 dose Lemuel Pakc furosemide (Lasix) injection 20 mg furosemide (Lasix) injection 20 mg 09-01 01:45: 00 Yes 20mg 20 mg, Intravenou s, Once, On [place] 09/01/24 at 0145, For 1 dose Lemuel Mcdaniels Epic albumin human 5 % IV soln 12.5 g albumin human 5 % IV soln 12.5 g 09-01 01:45: 00 09-01 02:15 :00 No 12.5g 12.5 g, Intravenou s, at 500 mL/hr, Administer over 30 Minutes, Once, On [place] 09/01/24 at 0145, For 1 dose, Indication for albumin: Other see comments [facility] furosemide (Lasix) 10 mg/mL injection - Pyxis Override Pull furosemide (Lasix) 10 mg/mL injection - Pyxis Override Pull 09-01 01:36: 36 Yes Starting on Thu09/01/24 at 0136, For 1 dose, Created by cabinet override [facility] Pack sennosides (Senokot) tablet 17.2 mg sennosides (Senokot) tablet 17.2 mg 08-31 17:00: 00 Yes 2{tbl} Q.5D 17.2 mg (2 tablet), Oral, 2 times daily, First dose (after last modificati on) on Thu08/31/24 at 1700 Lemuel Pack hydrALAZINE (Apresoline ) tablet 10 mg hydrALAZINE (Apresoline ) tablet 10 mg 08-31 16:30: 00 Yes 10mg Q8H 10 mg, Oral, Every 8 hours PRN, For SBP greater than 150, Starting on Thu08/31/24 at 1630 [facility] Pack pantoprazol e (ProtoNix) EC tablet 40 mg pantoprazol e (ProtoNix) EC tablet 40 mg 08-31 12:45: 00 Yes 40mg 40 mg, Oral, Daily before breakfast, First dose on Thu08/31/24 at 1245, Do not crush, chew, or split. [facility]uel Pack oxyCODONE (Roxicodone ) immediate release tablet 5 mg oxyCODONE (Roxicodone ) immediate release tablet 5 mg 08-31 10:49: 46 Yes 5mg Q6H 5 mg, Oral, Every 6 hours PRN, severe pain (7-10), For breakthrou gh pain refractory to oxycodone 10mg, Starting on Thu08/31/24 at 1049 Lemuel Pack lactulose (Chronulac) 10 GM/15ML solution 30 g lactulose (Chronulac) 10 GM/15ML solution 30 g 08-31 10:00: 00 08-31 10:55 :00 No 30g 30 g, Oral, Once, On Thu08/31/24 at 1000, For 1 dose [facility] Pack furosemide (Lasix) injection 40 mg furosemide (Lasix) injection 40 mg 08-31 09:00: 00 09-02 09:05 :49 No 40mg QD 40 mg, Intravenou s, Daily, First dose (after last reorder) on Thu08/31/24 at 0900 Lemuel Pack potassium chloride CR (Klor-Con M20) ER tablet 20 mEq potassium chloride CR (Klor-Con M20) ER tablet 20 mEq 08-31 09:00: 00 09-01 17:12 :08 No 20meq QD 20 mEq, Oral, Daily, First dose on Thu08/31/24 at 0900, For patients able to take medication s orally or via feeding tube >/= 14 [place], may dissolve each 20 mEq tablet in 4 oz of water. Allow about 2 minutes for the tablets to disintegra te. Stir before giving to prepare slurry and administer . Please exclude patient's with feeding tube less than 14 [place] (Dobhoff, J-tube, etc) and pediatric and patients Do not crush or chew. Lemuel Pack sodium chloride 0.9 % infusion - Pyxis Override Pull sodium chloride 0.9 % infusion - Pyxis Override Pull 08-30 23:36: 38 08-30 23:46 :00 No Starting on Thu08/30/24 at 2336, For 1 dose, Created by cabinet override Lemuel Pack hydrALAZINE (Apresoline ) tablet 10 mg hydrALAZINE (Apresoline ) tablet 10 mg 08-30 18:30: 00 08-31 16:17 :20 No 10mg Q8H 10 mg, Oral, Every 8 hours, First dose on Thu08/30/24 at 1830, Hold for SBP less than 140 mmHg Lemuel Pack clopidogrel (Plavix) tablet 75 mg clopidogrel (Plavix) tablet 75 mg 08-30 09:00: 00 Yes 75mg QD 75 mg, Oral, Daily, First dose on Thu08/30/24 at 0900 Lemuel Pack furosemide (Lasix) injection 40 mg furosemide (Lasix) injection 40 mg 08-30 08:30: 00 Yes 40mg 40 mg, Intravenou s, Once, On Thu08/30/24 at 0830, For 1 dose, Give after albumin Lemuel aguayo Arslan Epic albumin human 5 % IV soln 12.5 g albumin human 5 % IV soln 12.5 g 08-30 07:45: 00 08-30 08:57 :00 No 12.5g 12.5 g, Intravenou s, at 250 mL/hr, Administer over 60 Minutes, Once, On Thu08/30/24 at 0745, For 1 dose Lemuel Mcdaniels Epic furosemide (Lasix) injection 20 mg furosemide (Lasix) injection 20 mg 08-29 23:45: 00 Yes 20mg 20 mg, Intravenou s, Once, On Thu08/29/24 at 2345, For 1 dose Lemuel Mcdaniels Epic albumin human 25 % IV soln 25 g albumin human 25 % IV soln 25 g 08-29 23:45: 00 08-30 00:59 :00 No 25g 25 g, Intravenou s, at 100 mL/hr, Administer over 60 Minutes, Once, On Thu08/29/24 at 2345, For 1 dose Lemuel Mcdaniels Epic lidocaine (Xylocaine) 2 % mouth solution 15 mL lidocaine (Xylocaine) 2 % mouth solution 15 mL 08-29 21:51: 50 Yes 15mL Q4H 15 mL, Swish & Spit, Every 4 hours PRN, mild pain (1-3), moderate pain (4-6), for pain from mouth sores, Starting on Thu08/29/24 at 2151, For 4 doses Lemuel Mcdaniels Epic heparin injection 5,000 Units heparin injection 5,000 Units 08-29 21:00: 00 Yes 5000U Q8H 5,000 Units, Subcutaneo us, Every 8 hours, First dose (after last modificati on) on Thu08/29/24 at 2100, Indication s: VTE, On hold since 09/04/2024 at 1732 until manually unheld Lemuel Mcdaniels Epic fludrocorti sone (Florinef) tablet 0.2 mg fludrocorti sone (Florinef) tablet 0.2 mg 08-29 17:45: 00 08-31 11:22 :33 No .2mg QD 0.2 mg, Oral, Daily, First dose on Thu08/29/24 at 1745 Lemuel Pack sennosides (Senokot) tablet 8.6 mg sennosides (Senokot) tablet 8.6 mg 08-29 17:00: 00 08-31 09:55 :49 No 1{tbl} Q.5D 8.6 mg (1 tablet), Oral, 2 times daily, First dose on Thu08/29/24 at 1700 Lemuel Mcdaniels Epic niCARdipine (Cardene) 40 mg/200 mL NS (0.2 mg/mL) premix niCARdipine (Cardene) 40 mg/200 mL NS (0.2 mg/mL) premix 08-29 17:00: 00 08-30 17:11 :00 No 2.5mg/h 2.5-15 mg/hr (12.5-75 mL/hr), Intravenou s, Continuous , Starting on Thu08/29/24 at 1700, For 1 day, Infusion Type: Titrate, Initial Dose (mg/hr): 2.5, Titrate by (mg/hr): 2.5, Every (minutes): 15, Target Blood Pressure (mmHg): SBP less than 140 mmHg, Max Dose (mg/hr): 15 Lemuel Mcdaniels Epic acetaminoph en (Tylenol) tablet 1,000 mg acetaminoph en (Tylenol) tablet 1,000 mg 08-29 14:00: 00 09-05 17:31 :57 No 1000mg [id number] 3D 1,000 mg, Oral, Every 8 hours scheduled, First dose (after last reorder) on Thu08/29/24 at 1400, Max acetaminop hen = 4000mg/day (4gm/day) Lemuel Mcdaniels Epic polyethylen e glycol (PEG) 3350 (Miralax) packet 17 g polyethylen e glycol (PEG) 3350 (Miralax) packet 17 g 08-29 12:30: 00 Yes 17g QD 17 g, Oral, Daily, First dose on Thu08/29/24 at 1230, Dissolve 17 g in 120 to 240 mL (4 to 8 ounces) of beverage. Lemuel Pack albumin human 5 % IV soln 25 g albumin human 5 % IV soln 25 g 08-29 12:15: 00 08-29 14:25 :00 No 25g 25 g, Intravenou s, at 500 mL/hr, Administer over 60 Minutes, Once, On Thu08/29/24 at 1215, For 1 dose Lemuel Mcdaniels Epic insulin glargine (Lantus) injection 30 Units insulin glargine (Lantus) injection 30 Units 08-29 09:00: 00 Yes 30U QD 30 Units, Subcutaneo us, Daily, First dose (after last modificati on) on Thu08/29/24 at 0900 Lemuel Mcdaniels Epic furosemide (Lasix) injection 20 mg furosemide (Lasix) injection 20 mg 08-29 07:00: 00 Yes 20mg 20 mg, Intravenou s, Once, On Thu08/29/24 at 0700, For 1 dose Lemuel Mcdaniels Epic sulfur hexafluorid e lipid-type A microsphere s (Lumason) 60.7-25 MG Injectable suspension 2 mL sulfur hexafluorid e lipid-type A microsphere s (Lumason) 60.7-25 MG Injectable suspension 2 mL 08-28 22:42: 33 08-28 22:42 :00 No 2mL 2 mL, Intravenou s, Once in imaging, Starting on Thu08/28/24 at 2242, For 1 dose, Reconstitu te with 5 mL of PF NS only using provided Mini-Hasmukh ; shake vigorously for 20 sec until a homogenous white milky suspension forms. Use immediatel y. May repeat once during procedure. Lemuel Mcdaniels Epic insulin glargine (Lantus) injection 15 Units insulin glargine (Lantus) injection 15 Units 08-28 21:30: 00 Yes 15U 15 Units, Subcutaneo us, Once, On Thu08/28/24 at 2130, For 1 dose Lemuel Mcdaniels Sirena insulin glargine (Lantus) injection 10 Units insulin glargine (Lantus) injection 10 Units 08-28 17:00: 00 Yes 10U 10 Units, Subcutaneo us, Once, On Thu08/28/24 at 1700, For 1 dose Lemuel govind Arslan Epic insulin lispro (Humalog, Admelog) injection 7 Units insulin lispro (Humalog, Admelog) injection 7 Units 08-28 17:00: 00 09-07 12:31 :40 No 7U 7 Units, Subcutaneo us, 3 times daily before meals, First dose on Thu08/28/24 at 1700, Before Breakfast, Lunch and Dinner ONLY. If pre-lunch and bedtime glucose is persistent ly above target, MD to consider increasing Basal dose by 20%. Lemuel govind Arslan Epic insulin lispro (HumaLOG, Admelog) injection 4-16 Units [id number] 3-02 16:50: 19 Yes 4U [id number] 3D 4-16 Units, Subcutaneo us, 3 times daily PRN, high blood sugar, with meals, Starting on Thu08/28/24 at 1650, For BG < 70, follow hypoglycem ia protocol and notify ordering provider. If patient can eat or drink, give oral carbohydra te as ordered per hypoglycem ia protocol. If patient NPO, give dextrose 50 % IV as ordered per hypoglycem ia protocol. If NPO and no IV access, give glucagon IM as ordered per hypoglycem ia protocol. Check BG every 15 minutes and repeat treatment if continued BG < 80., Correction Insulin Dosing: (DO NOT CHANGE DEFAULT SELECTION/ VALUES): High, BG < 70 instructio ns: Follow Hypoglycem ia Orders, BG 70-149 instructio ns: No Dose Needed, BG 150-199: 4, BG 200-249: 8, BG 250-299: 12, BG >/= 300: 16, BG > 300 instructio ns: Contact Provider Lemuel Mcdaniels Epic glucagon injection 1 mg glucagon injection 1 mg 08-28 16:49: 56 Yes 1mg 1 mg, Intramuscu lar, As needed, For BG < 70 mg/dL if no IV access and patient is either Unconsciou s, unable to swallow or npo, Starting on Thu08/28/24 at 1649, For BG < 70 mg/dL if no IV access and patient is either Unconsciou s, unable to swallow or npo and notify MD. Lemuel Mcdaniels Epic dextrose 50 % solution 25 g dextrose 50 % solution 25 g 08-28 16:49: 56 Yes 25g 25 g, Intravenou s, As needed, other, if Blood Glucose </= 50 mg/dL, Starting on Thu08/28/24 at 1649, If BG </=50 mg/dL, give 50 mL of D50W IV push STAT and notify MD. Lemuel Mcdaniels Epic dextrose 50 % solution 12.5 g dextrose 50 % solution 12.5 g 08-28 16:49: 56 Yes 12.5g 12.5 g, Intravenou s, As needed, low blood sugar, if Blood Glucose 51- 69 mg/dL, Starting on Thu08/28/24 at 1649, For BG 51-69 mg/dL and patient UNCONSCIOU S OR UNABLE TO SWALLOW OR NPO: Give 25 mL of D50W IV push and notify MD. Lemuel Pack heparin injection 5,000 Units heparin injection 5,000 Units 08-28 12:15: 00 08-29 17:05 :22 No 5000U Q12H 5,000 Units, Subcutaneo us, Every 12 hours, First dose on Thu08/28/24 at 1215, Indication s: VTE Lemuel Mcdaniels Epic insulin glargine (Lantus) injection 20 Units insulin glargine (Lantus) injection 20 Units 08-28 12:00: 00 08-28 16:51 :29 No 20U QD 20 Units, Subcutaneo us, Daily, First dose on Thu08/28/24 at 1200 Lemuel Mcdaniels Epic furosemide (Lasix) injection 20 mg furosemide (Lasix) injection 20 mg 08-28 07:45: 00 Yes 20mg 20 mg, Intravenou s, Once, On Thu08/28/24 at 0745, For 1 dose, Please give the lasix after the 2nd unit of blood. Lemuel Mcdaniels Epic sodium chloride 0.9 % infusion 250 mL sodium chloride 0.9 % infusion 250 mL 08-28 07:34: 36 08-29 07:33 :36 No 250mL 250 mL, Intravenou s, As needed, To prime line and flush remaining blood products, Starting on Thu08/28/24 at 0734, For 24 hours Lemuel Pack furosemide (Lasix) injection 20 mg furosemide (Lasix) injection 20 mg 08-28 06:45: 00 Yes 20mg 20 mg, Intravenou s, Once, On Thu08/28/24 at 0645, For 1 dose Lemuel Pack insulin lispro (HumaLOG, Admelog) injection 3-12 Units [id number] 3-02 04:26: 09 08-28 16:49 :41 No 3U Q.25D 3-12 Units, Subcutaneo us, 4 times daily PRN, high blood sugar, with meals, Starting on Thu08/28/24 at 0426, 1. IF 2 consecutiv e BG are >160 mg/dL, notify provider. 2. IF 2 consecutiv e BG are < 110 mg/dL, notify provider. 3. IF 2 consecutiv e BG are >200 mg/dL or 1 BG is > or = to 300 mg/dL, notify provider then INITIATE Insulin drip 4. When initiating the Insulin Infusion Orders for ICU MPP, please discontinu e the ICU insulin Sub Q abhay ection dose MPP and any orders for basal SQ insulin. Select the order communicat ion type as secondary. 5. When transferri ng out of ICU please inform MD to discontinu e critical care Sub-Q orders and initiate floor Sub-Q orders , Correction Insulin Dosing: (DO NOT CHANGE DEFAULT SELECTION/ VALUES): Medium, BG < 70 instructio ns: Follow Hypoglycem ia Orders, BG 70-149 instructio ns: No Dose Needed, BG 150-199: 3, BG 200-249: 6, BG 250-299: 9, BG >/= 300: 12, BG > 300 instructio ns: Contact Provider Lemuel Mcdaniels Epic sodium chloride 0.9 % infusion - Pyxis Override Pull sodium chloride 0.9 % infusion - Pyxis Override Pull 08-28 01:52: 52 08-28 02:00 :00 No Starting on 08/28/24 at 0152, For 1 dose, Created by cabinet override Lemuel Pack furosemide (Lasix) injection 20 mg furosemide (Lasix) injection 20 mg 08-27 23:30: 00 Yes 20mg 20 mg, Intravenou s, Once, On 08/27/24 at 2330, For 1 dose Lemuel Pack albumin human 25 % IV soln 25 g albumin human 25 % IV soln 25 g 08-27 23:30: 00 08-28 00:34 :00 No 25g 25 g, Intravenou s, at 100 mL/hr, Administer over 60 Minutes, Once, On 08/27/24 at 2330, For 1 dose Lemuel Pack latanoprost (Xalatan) 0.005 % ophthalmic solution latanoprost (Xalatan) 0.005 % ophthalmic solution 08-27 21:00: 00 Yes 1[drp] Administer 1 drop into both eyes at bedtime. Lemuel Pack rosuvastati n (Crestor) tablet 20 mg rosuvastati n (Crestor) tablet 20 mg 08-27 21:00: 00 Yes 20mg 20 mg, Oral, Nightly, First dose (after last modificati on) on 08/27/24 at 2100, Phase II/On Unit Lemuel Pack calcium chloride 2,000 mg in sodium chloride 0.9 % 100 mL IVPB calcium chloride 2,000 mg in sodium chloride 0.9 % 100 mL IVPB 08-27 18:00: 00 08-27 19:49 :00 No 2000mg 2,000 mg, Intravenou s, at 120 mL/hr, Administer over 60 Minutes, Once, On 08/27/24 at 1800, For 1 dose Lemuel Pack brimonidine (AlphaGAN) 0.2 % ophthalmic solution 1 drop brimonidine (AlphaGAN) 0.2 % ophthalmic solution 1 drop 08-27 17:00: 00 Yes 1[drp] Q.5D 1 drop, Both Eyes, 2 times daily, First dose on 08/27/24 at 1700 Lemuel Pack furosemide (Lasix) injection 20 mg furosemide (Lasix) injection 20 mg 08-27 14:45: 00 Yes 20mg 20 mg, Intravenou s, Once, On 08/27/24 at 1445, For 1 dose Lemuel Pack albumin human 5 % IV soln - Pyxis Override Pull albumin human 5 % IV soln - Pyxis Override Pull 08-27 10:47: 43 08-27 12:38 :00 No Starting on 08/27/24 at 1047, For 1 dose, Created by cabinet override Lemuel Pack polyethylen e glycol (PEG) 3350 (Miralax) packet 17 g polyethylen e glycol (PEG) 3350 (Miralax) packet 17 g 08-27 09:57: 04 Yes 17g Q24H 17 g, Oral, Daily PRN, constipati on, Starting on 08/27/24 at 0957, Hold for more than 3 bowel movements in 24 h or diarrhea Dissolve 17 g in 120 to 240 mL (4 to 8 ounces) of beverage. Lemuel Pack docusate sodium (Colace) capsule 100 mg docusate sodium (Colace) capsule 100 mg 08-27 09:56: 52 Yes 100mg Q.5D 100 mg, Oral, 2 times daily PRN, constipati on, Starting on 08/27/24 at 0956, Hold for more than 3 bowel movements in 24 h or diarrhea Lemuel Pack aspirin EC 81 MG EC tablet aspirin EC 81 MG EC tablet 08-27 09:00: 00 Yes 81mg QD Take 81 mg by mouth 1 time each day. Lemuel Pack timolol (Timoptic) 0.25 % ophthalmic solution 1 drop timolol (Timoptic) 0.25 % ophthalmic solution 1 drop 08-27 09:00: 00 Yes 1[drp] Q.5D 1 drop, Both Eyes, 2 times daily, First dose on 08/27/24 at 0900 Lemuel Pack albumin human 5 % IV soln 25 g albumin human 5 % IV soln 25 g 08-27 08:45: 00 08-27 10:00 :00 No 25g 25 g, Intravenou s, at 500 mL/hr, Administer over 60 Minutes, Once, On 08/27/24 at 0845, For 1 dose, Indication for albumin: Other see comments Lemuel Mcdaniels Epic albumin human 5 % IV soln - Pyxis Override Pull albumin human 5 % IV soln - Pyxis Override Pull 08-27 08:21: 45 08-27 09:56 :00 No Starting on 08/27/24 at 0821, For 1 dose, Created by cabinet override Lemuel Mcdaniels Epic melatonin tablet 5 mg melatonin tablet 5 mg 08-27 02:58: 10 Yes 5mg QD 5 mg, Oral, Nightly PRN, sleep, Starting on 08/27/24 at 0258 Lemuel Mcdaniels Epic albumin human 5 % IV soln 12.5 g albumin human 5 % IV soln 12.5 g 08-27 01:15: 00 08-27 02:15 :00 No 12.5g 12.5 g, Intravenou s, at 250 mL/hr, Administer over 60 Minutes, Once, On 08/27/24 at 0115, For 1 dose Lemuel Mcdaniels Epic sodium bicarbonate 8.4 % injection 50 mEq sodium bicarbonate 8.4 % injection 50 mEq 08-26 21:15: 00 08-26 21:06 :00 No 50meq 50 mEq, Intravenou s, Once, On Thu08/26/24 at 2115, For 1 dose Lemuel Mcdaniels Epic rosuvastati n (Crestor) tablet 5 mg rosuvastati n (Crestor) tablet 5 mg 08-26 21:00: 00 08-27 16:06 :20 No 5mg 5 mg, Oral, Nightly, First dose on Thu08/26/24 at 2100, Phase II/On Unit Lemuel Mcdaniels Epic lactated Ringer's bolus 500 mL [id number] 2-28 21:00: 00 08-26 23:03 :00 No 500mL 500 mL, Intravenou s, at 250 mL/hr, Administer over 2 Hours, Once, On Thu08/26/24 at 2100, For 1 dose Lemuel Mcdaniels Epic albumin human 5 % IV soln 25 g albumin human 5 % IV soln 25 g 08-26 19:30: 00 08-26 19:59 :00 No 25g 25 g, Intravenou s, at 500 mL/hr, Administer over 60 Minutes, Once, On Thu08/26/24 at 1930, For 1 dose Lemuel Mcdaniels Epic albumin human 5 % IV soln - Pyxis Override Pull albumin human 5 % IV soln - Pyxis Override Pull 08-26 18:54: 24 08-26 20:00 :00 No Starting on Thu08/26/24 at 1854, For 1 dose, Created by cabinet override Lemuel Mcdaniels Epic chlorhexidi ne (Peridex) 0.12 % solution 15 mL chlorhexidi ne (Peridex) 0.12 % solution 15 mL 08-26 18:15: 00 08-31 12:29 :17 No 15mL Q.25D 15 mL, Mouth/Thro at, 4 times daily, First dose on Thu08/26/24 at 1815, swish and expectorat e Lemuel Mcdaniels Epic mupirocin (Bactroban) 2 % ointment 1 Application mupirocin (Bactroban) 2 % ointment 1 Application 08-26 17:00: 00 08-31 08:54 :00 No 1{appli cation} Q.5D Nasal, 2 times daily, First dose on Thu08/26/24 at 1700, For 5 days, Phase II/On Unit Lemuel Mcdaniels Epic sodium bicarbonate 8.4 % injection 100 mEq sodium bicarbonate 8.4 % injection 100 mEq 08-26 16:45: 00 08-26 16:42 :00 No 100meq 100 mEq, Intravenou s, Once, On Thu08/26/24 at 1645, For 1 dose Lemuel Olsenann Epic sodium bicarbonate 8.4 % injection - Pyxis Override Pull sodium bicarbonate 8.4 % injection - Pyxis Override Pull 08-26 16:14: 14 08-26 16:42 :00 No Starting on Thu08/26/24 at 1614, For 1 dose, Created by cabinet tawnya Pack methocarbam ol (Robaxin) tablet 750 mg methocarbam ol (Robaxin) tablet 750 mg 08-26 16:00: 00 Yes 750mg Q8H 750 mg, Oral, Every 8 hours, First dose on Thu08/26/24 at 1600 Lemuel Pack acetaminoph en (Tylenol) tablet 1,000 mg acetaminoph en (Tylenol) tablet 1,000 mg 08-26 16:00: 00 08-29 17:59 :00 No 1000mg Q6H 1,000 mg, Oral, Every 6 hours, First dose on Thu08/26/24 at 1600, For 3 days, Max acetaminop hen = 4000mg/day (4gm/day) Lemuel Pack oxyCODONE (Roxicodone ) immediate release tablet 10 mg oxyCODONE (Roxicodone ) immediate release tablet 10 mg 08-26 15:01: 06 Yes 10mg Q6H 10 mg, Oral, Every 6 hours PRN, severe pain (7-10), Starting on Thu08/26/24 at 1501 Lemuel Pack insulin regular (HumuLIN R,NovoLIN R) 100 Units in sodium chloride 0.9 % 100 mL (1 Units/mL) infusion insulin regular (HumuLIN R,NovoLIN R) 100 Units in sodium chloride 0.9 % 100 mL (1 Units/mL) infusion 08-26 15:00: 00 08-28 04:27 :35 No 0U/h 0-35 Units/hr (0-35 mL/hr), Intravenou s, Continuous , Starting on Thu08/26/24 at 1500, [facility] Blood Glucose Target= 110 mg/dL and HIGH Blood Glucose Target= 180mg/dL Do Not Start Insulin Drip Unless Potassium is More Than 3 mEq/L. Initial Insulin Drip Rate (units/vish r)=(Blood Glucose-60 )X0.03 "multiplie r". Insulin Rate Adjustment s: 1) If hourly BG is greater than HIGH target, increase the "multiplie r"by 0.01. (Do Not increase if treated for hypoglycem ia within the last 4 hours.); Notify MD if insulin infusion rate exceeding 20 units/hr 2) If hourly BG is less than LOW target, decrease the "multiplie r" by 0.01 3) If hourly BG is WITHIN target range, do NOT change the "multiplie r". You must still recalculat e insulin drip rate with each BG result and unchanged multiplier . After hourly BG remains in target range for 4 consecutiv e hours, check BG Q2H or per unit monitoring procedure. If multiplier is changed, resume checking BG every 1 hour. If BG < 70 mg/dL, HOLD insulin drip, contact MD AND refer to hypoglycem ia orders Once no longer hypoglycem ic, repeat BG Q1H. Restart insulin infusion once BG >140 mg/dL and decrease multiplier by rate of 0.01 Do NOT increase the multiplier after treating hypoglycem ia until BG is greater than HIGH target (180mg/dL) and no hypoglycem ia within last 4 hours. Send STAT serum glucose to lab for verificati on for all BG less than or equal 50 mg/dL or above 400 mg/dL For ICU Use Only Lemuel Pack norepinephr ine (Levophed) 8 mg in dextrose 5% 250 mL (32 mcg/mL) infusion (premix) norepinephr ine (Levophed) 8 mg in dextrose 5% 250 mL (32 mcg/mL) infusion (premix) 08-26 14:45: 00 08-30 18:04 :04 No 5ug/min 5-70 mcg/min (9.375-131 .25 mL/hr, rounded to 9.38-131.2 5 mL/hr), Intravenou s, Continuous , Starting on Thu08/26/24 at 1445, Infusion Type: Titrate, Initial Dose (mcg/min): 5, Titrate by (mcg/min): 2, Every (minutes): 2-5, Target Blood Pressure (mmHg): MAP 65 or above, Max Dose (mcg/min): 70 Memoria l Arslan Epic EPINEPHrine (Adrenalin) 4 mg in sodium chloride 0.9 % 250 mL (0.016 mg/mL) infusion EPINEPHrine (Adrenalin) 4 mg in sodium chloride 0.9 % 250 mL (0.016 mg/mL) infusion 08-26 14:45: 00 08-29 12:16 :57 No 1ug/min 1-35 mcg/min (3.75-131. 25 mL/hr), Intravenou s, Continuous , Starting on Thu08/26/24 at 1445, Infusion Type: Titrate, Initial Dose (mcg/min): 5, Titrate by (mcg/min): 0.5, Every (minutes): 2, Target Blood Pressure (mmHg): MAP 65 or above, Max Dose (mcg/min): 35 Lemuel Pack HYDROmorpho ne PF (Dilaudid) injection 0.5 mg HYDROmorpho ne PF (Dilaudid) injection 0.5 mg 08-26 13:09: 55 Yes .5mg Q4H Lemuel Pack calcium gluconate 1g in NaCl 50mL IVPB 1 g calcium gluconate 1g in NaCl 50mL IVPB 1 g 08-26 13:09: 55 09-01 14:03 :51 No 1g 1 g, Intravenou s, at 100 mL/hr, Administer over 30 Minutes, As needed, Abnormal Lab Result, FOR ICU USE ONLY, Starting on Thu08/26/24 at 1309, Phase II/On Unit, For ionized calcium 0.8 to 0.9 mmol/L: Replace with calcium gluconate 1 gram IVPB over 30 minutes For ionized calcium </= 0.79 mmol/L: Replace with calcium gluconate 2 grams IVPB over 30 minutes and notify Recheck Ionized Calcium level 2 hours after Calcium replacemen t complete. Lemuel Pack magnesium sulfate IVPB 2 g magnesium sulfate IVPB 2 g 08-26 13:09: 55 09-01 14:03 :51 No 2g 2 g, Intravenou s, Administer over 4 Hours, As needed, Abnormal Lab Result, FOR ICU USE ONLY, Starting on Thu08/26/24 at 1309, Phase II/On Unit, For magnesium 1.6 to 1.8 mg/dL: Replace with Mg Sulfate 2 grams IVPB over 4 hours x 1 dose. For magnesium 1.9 to 2.3 mg/dL(in CV surgery patients only): Replace with Mg Sulfate 2 grams IVPB over 4 hours X 1 dose> For magnesium </= 1.5 mg/dL: Replace with Mg Sulfate 2 grams IVPB over 4 hours X 2 doses. Notify MD if magnesium </= 1.1 mg/dL Recheck Magnesium level 2 hours after Magnesium replacemen t complete. Lemuel Pack insulin regular (Myxredlin) 100-0.9 UT/100ML-% infusion (premix) - Pyxis Override Pull insulin regular (Myxredlin) 100-0.9 UT/100ML-% infusion (premix) - Pyxis Override Pull 08-26 08:18: 57 08-26 14:06 :00 No Starting on Thu08/26/24 at 0818, For 1 dose, Created by cabinet override BUD: 30 days at room temperatur e Lemuel Pack timolol (Timoptic) 0.5 % ophthalmic solution timolol (Timoptic) 0.5 % ophthalmic solution 06-30 00:00: 00 Yes 1[drp] Q.5D Administer 1 drop into both eyes in the morning and 1 drop in the evening. Lemuel Pack atorvastati n (Lipitor) 40 MG tablet atorvastati n (Lipitor) 40 MG tablet 2023-06 00:00: 00 09-07 00:00 :00 No 40mg QD Take 40 mg by mouth 1 time each day. Lemuel Pack Azithromyci n 5 Day Dose Pack 250 mg oral tablet 2022-06 17:41: 00 Yes See Instructio ns, Take 2 tablets by mouth the first day then 1 tablet by mouth days 2-5., X 5 day, # 6 tab, 0 Refill(s), Pharmacy: [id number], 165.1, cm, 12/26/22 15:57:00 CDT, Height, 82.727, kg, 03/30/23 12:30:00 CDT, Weight Lemuel Mcdaniels Augmentin 875 mg oral tablet 8-02 16:25: 00 Yes 875 mg = 1 tab, PO, Q12H, X 10 day, # 20 tab, 0 Refill(s), Pharmacy: [facility] #[id number], 165.1, cm, 12/26/22 15:57:00 CDT, Height, 82.727, kg, 01/28/23 11:15:00 CDT, Weight Memsarah govind Mcdaniels NovoLOG FlexPen 100 units/mL injectable solution 01-15 19:20: 00 Yes See Instructio pete, INJECT 22 UNITS SUBCUTANEO USLY 3 TIMES A DAY BEFORE MEALS, # 60 mL, 3 Refill(s), [facility]: [facility], 165.1, cm, 12/26/22 15:57:00 CDT, Height, 81.364, kg, 01/07/23 9:01:00 CDT, Weight Memsarah govind Mcdaniels insulin aspart (NovoLOG FLEXPEN) 100 UNIT/ML pen insulin aspart (NovoLOG FLEXPEN) 100 UNIT/ML pen 01-15 00:00: 00 09-07 00:00 :00 No See Instructio pete, INJECT 22 UNITS SUBCUTANEO USLY 3 TIMES A DAY BEFORE MEALS, # 60 mL, 3 Refill(s), [facility], 165.1, cm, 12/26/22 15:57:00 CDT, Height, 81.364, kg, 01/07/23 9:01:00 CDT, Weight Memoria govind Mcdaniels Epic Azithromyci n 5 Day Dose Pack 250 mg oral tablet 01-07 14:23: 00 Yes See Instructio ns, Take 2 tablets by mouth the first day then 1 tablet by mouth days 2-5., X 5 day, # 6 tab, 0 Refill(s), Pharmacy: [facility] #[id number], 165.1, cm, 12/26/22 15:57:00 CDT, Height, 81.364, kg, 01/07/23 9:01:00 CDT, Weight Memoria govind Mcdaniels clindamycin 300 mg oral capsule 30 21:56: 00 Yes 300 mg = 1 cap, PO, Q8H, X 10 day, # 30 cap, 0 Refill(s) Lemuel Mcdaniels Ozempic 404 14:12: 00 Yes 2 mg, SUB-Q, qWeek, 0 Refill(s) Lemuel Mcdaniels Levemir FlexPen 100 units/mL subcutaneou s solution 04 14:10: 00 Yes See Instructio ns, 40 unit SUB-Q BID, # 45 mL, 3 Refill(s) Lemuel Mcdaniels insulin detemir (Levemir FlexPen) 100 UNIT/ML pen insulin detemir (Levemir FlexPen) 100 UNIT/ML pen 09-30 00:00: 00 08-24 00:00 :00 No See Instructio ns, 40 unit SUB-Q BID, # 45 mL, 3 Refill(s) Lemuel Mcdaniels Epic minoxidil 2.5 mg oral tablet 09-26 20:47: 00 Yes = 1 tab, PO, Daily, # 90 tab, 1 Refill(s), [facility]: [facility], 165.1, cm, 05/27/22 11:38:00 RUG FRAME MOUNTER, Height, 84.091, kg, 05/27/22 11:38:00 RUG FRAME MOUNTER, Weight Lemuel Mcdaniels minoxidil (Loniten) 2.5 MG tablet minoxidil (Loniten) 2.5 MG tablet 09-26 00:00: 00 08-24 00:00 :00 No = 1 tab, PO, Daily, # 90 tab, 1 Refill(s), [facility]: [facility], 165.1, cm, 05/27/22 11:38:00 RUG FRAME MOUNTER, Height, 84.091, kg, 05/27/22 11:38:00 RUG FRAME MOUNTER, Weight Lemuel Mcdaniels Epic Levemir FlexPen 100 units/mL subcutaneou s solution 09-19 18:53: 00 Yes See Instructio ns, 40 unit SUB-Q BID, # 45 mL, 3 Refill(s), Pharmacy: [facility], 165.1, cm, 05/27/22 11:38:00 RUG FRAME MOUNTER, Height, 84.091, kg, 05/27/22 11:38:00 RUG FRAME MOUNTER, Weight Lemuel Mcdaniels Levemir FlexPen 100 units/mL subcutaneou s solution 07-18 22:30: 00 Yes See Instructdavid freeman, 40 unit SUB-Q BID, # 45 mL, 3 Refill(s), Pharmacy: [facility], 165.1, cm, 05/27/22 11:38:00 RUG FRAME MOUNTER, Height, 84.091, kg, 05/27/22 11:38:00 RUG FRAME MOUNTER, Weight Lemuel Mcdaniels Tirzepatide 12.5 MG/0.5ML solution pen-injecto r 07-08 00:00: 00 03-18 00:00 :00 No [id number] 12.5mg Inject 12.5 mg under the skin 1 (one) time per week. [facility] insulin aspart (NovoLOG FLEXPEN) 100 UNIT/ML injection 07-01 14:51: 00 Yes Novolog Flexpen U-100 Insulin aspart 100 unit/mL (3 mL) subcutaneo [facility] Semaglutide , 2 MG/DOSE, (Ozempic, 2 MG/DOSE,) 8 MG/3ML solution pen-injecto r 07-01 00:00: 00 Yes [id number] 2mg Inject 2 mg under the skin 1 (one) time per week. [facility] metFORMIN XR (Glucophage XR) 500 MG 24 hr tablet 07-01 00:00: 00 07-01 00:00 :00 No [id number] Take 1 tablet (500 mg total) by mouth 1 (one) time each day with dinner for 7 days, THEN 2 tablets (1,000 mg total) 1 (one) time each day with dinner. Do not crush, chew, or split.. [facility] Mounjaro 10 mg/0.5 mL subcutaneou s solution 03-28 15:02: 00 Yes 10 mg, INJ, qWeek, Inject into subcutaneo us tissue (abdomen or thigh), # 2 mL, 0 Refill(s) Lemuel Mcdaniels insulin aspart (NovoLOG FLEXPEN) 100 UNIT/ML injection 03-18 15:57: 05 Yes Novolog Flexpen U-100 Insulin aspart 100 unit/mL (3 mL) subcutaneo us [facility] DME Prescriptio n 02-19 17:28: 00 Yes See Estiven freeman, MISC, ONCE, True Plus 31 G pen needles 8mm, # 100 ea, 3 Refill(s), Pharmacy: [facility] #[id number], 165.1, cm, 02/19/22 11:58:00 CDT, Height, 83.636, kg, 02/19/22 11:58:00 CDT, Weight Lemuel Mcdaniels minoxidil 2.5 mg oral tablet 02-19 17:25: 00 Yes 2.5 mg = 1 tab, PO, Daily, # 90 tab, 0 Refill(s), Pharmacy: [facility], 165.1, cm, 02/19/22 11:58:00 CDT, Height, 83.636, kg, 02/19/22 11:58:00 CDT, Weight Lemuel Mcdaniels Semaglutide , 2 MG/DOSE, (Ozempic, 2 MG/DOSE,) 8 MG/3ML solution pen-injecto r 01-17 00:00: 00 07-01 00:00 :00 No [id number] 2mg Inject 2 mg under the skin 1 (one) time per week. [facility] Semaglutide , 2 MG/DOSE, (Ozempic, 2 MG/DOSE,) 8 MG/3ML solution pen-injecto r 01-14 00:00: 00 01-17 00:00 :00 No [id number] 2mg Inject 2 mg under the skin 1 (one) time per week. [facility] semaglutide (Ozempic) 2 MG/1.5ML solution pen-injecto r 01-14 00:00: 00 01-14 00:00 :00 No [id number] .5mg Inject 0.5 mg under the skin 1 (one) time per week. [facility] timolol (Timoptic) 0.5 % ophthalmic solution 12-23 00:00: 00 Yes [facility] olmesartan 40 mg oral tablet 12-16 18:28: 00 Yes 40 mg = 1 tab, PO, Daily, # 90 tab, 3 Refill(s), Pharmacy: [facility], 165.1, cm, 12/16/21 13:12:00 CDT, Height, 84.545, kg, 12/16/21 13:12:00 CDT, Weight Lemuel Mcdaniels Lantus Solostar Pen 100 units/mL subcutaneou s solution 12-16 18:28: 00 Yes See Instructio ns, 80-90 units SUB-Q Daily, # 45 mL, 3 Refill(s), Pharmacy: [facility], 165.1, cm, 12/16/21 13:12:00 CDT, Height, 84.545, kg, 12/16/21 13:12:00 CDT, Weight Lemeul Mcdaniels NovoLOG FlexPen 100 units/mL injectable solution 12-16 18:27: 00 Yes 22 unit, SUB-Q, TID-Before Meals, 90 mL, # 15 mL, 3 Refill(s), Pharmacy: [facility], 165.1, cm, 12/16/21 13:12:00 CDT, Height, 84.545, kg, 12/16/21 13:12:00 CDT, Weight Lemuel Mcdaniels OZEMPIC 2MG PEN 12-16 18:22: 00 Yes OZEMPIC 2MG PEN, Refill(s) 0 Lemuel Mcdaniels olmesartan (BENIcar) 40 MG tablet olmesartan (BENIcar) 40 MG tablet 12-16 00:00: 00 09-07 00:00 :00 No 40mg QD Take 40 mg by mouth 1 time each day. Lemuel Mcdaniels Epic metFORMIN (Glucophage ) 500 MG tablet 11-28 00:00: 00 03-18 00:00 :00 No [facility] Ozempic, 2 MG/DOSE, 8 MG/3ML solution pen-injecto r 11-28 00:00: 00 01-14 00:00 :00 No [facility] insulin aspart (NovoLOG FLEXPEN) 100 UNIT/ML injection 11-21 15:20: 54 Yes Novolog Flexpen U-100 Insulin aspart 100 unit/mL (3 mL) subcutaneo [facility] metFORMIN XR (Glucophage XR) 500 MG 24 hr tablet 11-20 00:00: 00 07-01 00:00 :00 No [id number] Take 1 tablet (500 mg total) by mouth 1 (one) time each day with dinner for 7 days, THEN 2 tablets (1,000 mg total) 1 (one) time each day with dinner. Do not crush, chew, or split. . [facility] Lantus Solostar Pen 100 units/mL subcutaneou s solution 11-19 17:38: 00 Yes See Estiven freeman, 80-90 units SUB-Q Daily #10 pens, # 10 ea, 10 Refill(s), Pharmacy: [id number], 165.1, cm, 09/12/21 10:46:00 CDT, Height, 85, kg, 09/12/21 10:46:00 CDT, Weight Lemuel Mcdaniels DME Prescriptio n 11-19 17:38: 00 Yes See Estiven freeman, MISC, ONCE, BD ultra fine short pen needles, 5/16" x 32 g, # 50 pen needle, 11 Refill(s), Pharmacy: [id number], 165.1, cm, 09/12/21 10:46:00 CDT, Height, 85, kg, 09/12/21 10:46:00 CDT, Weight Lemuel Mcdaniels latanoprost (Xalatan) 0.005 % ophthalmic solution -04 00:00: 00 Yes [facility] brimonidine (AlphaGAN P) 0.2 % ophthalmic solution 30 00:00: 00 Yes 1[drp] Q.5D Administer 1 drop into the right eye 2 (two) times a day. [facility] multivitami n 09-12 15:45: 00 Yes Daily, 0 Refill(s) Lemuel Mcdaniels Olmesartan medoxomil 40 MG Oral Tablet [Benicar] 09-12 15:45: 00 No 40 mg = 1 tab, PO, Daily, # 30 tab, 0 Refill(s) Sherinsarah govind Mcdaniels Timolol Maleate (Eqv-Timopt ic) 0.5% ophthalmic solution 09-12 15:44: 00 Yes 25 mL, 0 Refill(s) Sherinsarah govind Mcdaniels chlorhexidi ne topical 0.12% liquid 09-12 15:43: 00 Yes 473 mL, RINSE AND SPIT 15 ML'S TWICE DAILY AFTER BREAKFAST/ BEFORE BEDTIME FOLLOWING BRUSHING AND FLOSSING, 0 Refill(s) Sherinsarah govind Mcdaniels brimonidine ophthalmic 0.2% solution 09-12 15:43: 00 Yes 5 mL, INSTILL 1 DROP INTO RIGHT EYE TWICE A DAY, 0 Refill(s) Sherinsarah govind Mcdaniels latanoprost ophthalmic 0.005% solution 09-12 15:43: 00 Yes 7 mL, INSTILL 1 DROP INTO RIGHT EYE AT BEDTIME, 0 Refill(s) Sherinsarah govind Mcdaniels chlorhexidi ne gluconate 1.2 MG/ML Mouthwash 09-12 15:43: 00 Yes 473 mL, RINSE AND SPIT 15 ML'S TWICE DAILY AFTER BREAKFAST/ BEFORE BEDTIME FOLLOWING BRUSHING AND FLOSSING, 0 Refill(s) Sherinsarah govind Mcdaniels Brimonidine tartrate 2 MG/ML Ophthalmic Solution 09-12 15:43: 00 Yes 5 mL, INSTILL 1 DROP INTO RIGHT EYE TWICE A DAY, 0 Refill(s) Sherinsarah govind Mcdaniels latanoprost 0.05 MG/ML Ophthalmic Solution 09-12 15:43: 00 Yes 7 mL, INSTILL 1 DROP INTO RIGHT EYE AT BEDTIME, 0 Refill(s) Sherinsarah govind Mcdaniels 3 ML Insulin, Aspart, Human 100 UNT/ML Pen Injector [NovoLog] 09-12 15:43: 00 Yes 90 mL, 0 Refill(s) Lemuel Mcdaniels 3 ML semaglutide 1.34 MG/ML Pen Injector [Ozempic] 09-12 15:43: 00 Yes 9 mL, 0 Refill(s) Lemuel Mcdaniels brimonidine (AlphaGAN P) 0.2 % ophthalmic solution brimonidine (AlphaGAN P) 0.2 % ophthalmic solution 09-12 00:00: 00 Yes 5 mL, INSTILL 1 DROP INTO RIGHT EYE TWICE A DAY, 0 Refill(s) Lemuel Mcdaniels Epic chlorhexidi ne (Peridex) 0.12 % solution chlorhexidi ne (Peridex) 0.12 % solution 09-12 00:00: 00 09-07 00:00 :00 No 473 mL, RINSE AND SPIT 15 ML'S TWICE DAILY AFTER BREAKFAST/ BEFORE BEDTIME FOLLOWING BRUSHING AND FLOSSING, 0 Refill(s) Lemuel Mcdaniels Epic chlorhexidi ne (Peridex) 0.12 % solution 09-02 00:00: 00 03-18 00:00 :00 No RINSE AND SPIT 15 ML'S TWICE DAILY AFTER BREAKFAST/ BEFORE BEDTIME FOLLOWING BRUSHING AND FLOSSING [facility] Lantus SoloStar 100 UNIT/ML injection 08-01 00:00: 00 Yes [facility] latanoprost 2020-06 19:53: 00 Yes QPM, 0 Refill(s) Lemuel Mcdaniels Timolol 2020-06 19:53: 00 Yes PO, BID, 0 Refill(s) Lemuel Mcdaniels olmesartan 40 mg oral tablet 2020-06 19:52: 00 Yes 40 mg = 1 tab, PO, Daily, 0 Refill(s) Lemuel Mcdaniels hydrochloro thiazide 12.5 mg oral tablet 2020-06 19:52: 00 Yes 12.5 mg = 1 tab, PO, Daily, 0 Refill(s) Lemuel Mcdaniels Ozempic 2020-06 19:51: 00 Yes SUB-Q, qWeek, 0 Refill(s) Lemuel Mcdaniels 3 ML Insulin Glargine 100 UNT/ML Prefilled Syringe [Lantus] 2020-06 19:50: 00 Yes SUB-Q, Daily, 0 Refill(s) Lemuel Mcdaniels NovoLog 2020-06 19:49: 00 Yes SUB-Q, TID-Before Meals, sliding scale, 0 Refill(s) Sherinsarah Mcdaniels hydroCHLORO thiazide 12.5 MG oral Tablet 2020-06 0 13:53: 27 Yes 1{tbl} Take 1 tablet by mouth daily Mana Guillen Insulin Aspart (NovoLOG FlexPen) 100 UNIT/ML subcutaneou s Solution Pen-injecto r 2020-06 0-21 13:53: 27 Yes Novolog Flexpen U-100 Insulin aspart 100 unit/mL (3 mL) subcutaneo us Mana Guillen Olmesartan Medoxomil 40 MG oral Tablet 2020-06 13:53: 27 Yes 40mg Take 40 mg by mouth daily Mana Guillen Multiple Vitamins-Mi nerals (MULTIVITAM IN ADULTS 50+ OR) 2020-06 13:53: 27 Yes 1{tbl} Take 1 tablet by mouth daily Mana Guillen Lantus SoloStar 100 UNIT/ML subcutaneou s Solution Pen-injecto r 2020-06 018 00:00: 00 Yes 100U Inject 100 units into the skin daily Mana Guillen Timolol Maleate (TIMOPTIC) 0.5 % ophthalmic Solution 2020-06 0-13 00:00: 00 Yes 1[drp] Place 1 drop into both eyes 2 times daily Mana Guillen Latanoprost 0.005 % ophthalmic Solution 2020-06 0-07 00:00: 00 Yes 1[drp] Place 1 drop into both eyes daily Mana Guillen OZEMPIC (1 mg/dose) 4 mg/3 mL SQ Solution Pen-Injecto r 8-17 00:00: 00 Yes Mana Guillen Lantus SoloStar 100 UNIT/ML Subcutaneou s Solution Pen-injecto r Lantus SoloStar 100 UNIT/ML Subcutaneou s Solution Pen-injecto r 815 00:00: 00 Yes BREN CHAVEZ M.D. Inject 70 [facility] at bedtime [facility] baclofen 10 mg oral tablet 10-24 00:29: 00 Yes 10 mg = 1 tab, PO, TID, # 21 tab, 0 Refill(s) Lemuel Mcdaniels tramadol hydrochlori de 50 MG Oral Tablet 10-24 00:29: 00 Yes 50 mg = 1 tab, PO, Q6H, PRN Pain, X 10 day, # 40 tab, 0 Refill(s) Lemuel Mcdaniels Insulin regular 10-24 00:21: 00 No 4 unit, Route: IV, ONCE, Dosing Weight 77.273, kg, Start date: 10/23/18 19:21:00 CDT, Stop date: 10/23/18 19:21:00 CDT Lemuel Mcdaniels Sodium Chloride 0.9% (Bolus) IV 10-24 00:19: 00 No 1,000 mL, 1,000 ml/hr, Infuse Over: 1 hr, Route: IV, ONCE, Priority: STAT, Dosing Weight 77.273 kg, Start date: 10/23/18 19:19:00 CDT, Stop date: 10/23/18 19:19:00 CDT Lemuel Mcdaniels Saline Flush 0.9% 10-23 21:17: 00 No Notes: (Same as: BD Posiflush) Lemuel Mcdaniels olmesartan (BENIcar) 40 MG tablet 09-01 00:00: 00 Yes olmesartan 40 mg tablet [facility] hydroCHLORO thiazide 12.5 MG Oral Tablet hydroCHLORO thiazide 12.5 MG Oral Tablet 09-01 00:00: 00 Yes BREN CHAVEZ M.D. 1 QD TAKE 1 TABLET DAILY. [facility] Azopt 1 % Ophthalmic Suspension Azopt 1 % Ophthalmic Suspension Yes Instill 1 drop in Right eye twice daily [facility] Combigan SOLN Combigan SOLN Yes Instill 1 drop in Right eye twice daily [facility] Travatan SOLN Travatan SOLN Yes INSTILL 1 DROP IN BOTH EYES FOUR TIMES DAILY [facility] Ozempic (1 MG/DOSE) SOPN Ozempic (1 MG/DOSE) SOPN Yes [facility] NovoLOG SOLN NovoLOG SOLN Yes [facility] Benicar HCT TABS Benicar HCT TABS Yes [facility] Immunizations Ordered Immunization Name Filled Immunization Name Date Status Comments Source Influenza, High Dose Seasonal, Preservative Free Influenza, High Dose Seasonal, Preservative Free 2024-09-12 00:00:00 Completed [facility] influenza virus vaccine, inactivated Unknown Completed [facility] [id number] boost<sup>1</sup> Unknown Completed [facility] influenza virus vaccine, inactivated Unknown Completed [facility] [id number] boost Unknown [id number] [facility] Unknown Completed [facility] [id number] ER Unknown Completed [facility] [id number] Unknown Completed [facility] tetanus-diphtheria toxoids<sup>1</sup> Unknown Completed [facility] tetanus-diphtheria toxoids<sup>2</sup> Unknown Completed [facility] Vital Signs Vital Name Observation Time Observation Value Comments S ource Systolic blood pressure 2024-10-03 08:00:00 121 mm[Hg] [facility] Diastolic blood pressure 2024-10-03 08:00:00 60 mm[Hg] [facility] Heart rate 2024-10-03 08:00:00 83 /min [facility] Body temperature 2024-10-03 08:00:00 36.33 [place] [facility] Respiratory rate 2024-10-03 08:00:00 18 /min [facility] Oxygen saturation in Arterial blood by Pulse oximetry 2024-10-02 18:00:00 98 /min [facility] Body weight 2024-10-01 07:24:00 74.571 kg [facility] BMI 2024-10-01 07:24:00 27.39 kg/m2 [facility] Body height 2024-09-21 13:08:00 165 cm [facility] Systolic blood pressure 2024-10-03 08:00:00 121 mm[Hg] [facility] Diastolic blood pressure 2024-10-03 08:00:00 60 mm[Hg] [facility] Heart rate 2024-10-03 08:00:00 83 /min [facility] Body temperature 2024-10-03 08:00:00 36.33 [place] [facility] Respiratory rate 2024-10-03 08:00:00 18 /min [facility] Oxygen saturation in Arterial blood by Pulse oximetry 2024-10-02 18:00:00 98 /min [facility] Body weight 2024-10-01 07:24:00 74.571 kg [facility] BMI 2024-10-01 07:24:00 27.39 kg/m2 [facility] Body height 2024-09-21 13:08:00 165 cm [facility] Respiratory rate 2024-09-20 15:57:25 18 /min [facility] Systolic blood pressure 2024-09-20 15:56:08 124 mm[Hg] [facility] Diastolic blood pressure 2024-09-20 15:56:08 59 mm[Hg] [facility] Heart rate 2024-09-20 15:56:08 84 /min [facility] Body temperature 2024-09-20 15:56:05 37.22 [place] [facility] Oxygen saturation in Arterial blood by Pulse oximetry 2024-09-20 14:19:00 100 /min [facility] Body weight 2024-09-20 03:57:00 79.4 kg [facility] BMI 2024-09-20 03:57:00 29.13 kg/m2 [facility] Body height 2024-09-14 03:42:00 165.1 cm [facility] Respiratory rate 2024-09-20 15:57:25 18 /min [facility] Systolic blood pressure 2024-09-20 15:56:08 124 mm[Hg] [facility] Diastolic blood pressure 2024-09-20 15:56:08 59 mm[Hg] [facility] Heart rate 2024-09-20 15:56:08 84 /min [facility] Body temperature 2024-09-20 15:56:05 37.22 [place] [facility] Oxygen saturation in Arterial blood by Pulse oximetry 2024-09-20 14:19:00 100 /min [facility] Body weight 2024-09-20 03:57:00 79.4 kg [facility] BMI 2024-09-20 03:57:00 29.13 kg/m2 [facility] Body height 2024-09-14 03:42:00 165.1 cm [facility] Systolic blood pressure 2024-09-14 01:45:00 80 mm[Hg] [facility] Diastolic blood pressure 2024-09-14 01:45:00 60 mm[Hg] [facility] Heart rate 2024-09-14 01:45:00 75 /min [facility] Body temperature 2024-09-14 01:45:00 38.39 [place] [facility] Respiratory rate 2024-09-14 01:45:00 22 /min [facility] Oxygen saturation in Arterial blood by Pulse oximetry 2024-09-14 01:45:00 96 /min [facility] Epic Body weight 2024-09-11 09:00:00 80.468 kg Standing [facility] Epic BMI 2024-09-11 09:00:00 29.52 kg/m2 [facility] Body height 2024-09-09 09:00:00 165.1 cm [facility] Systolic blood pressure 2024-09-14 01:45:00 80 mm[Hg] [facility] Diastolic blood pressure 2024-09-14 01:45:00 60 mm[Hg] [facility] Heart rate 2024-09-14 01:45:00 75 /min [facility] Body temperature 2024-09-14 01:45:00 38.39 [place] [facility] Respiratory rate 2024-09-14 01:45:00 22 /min [facility] Epic Oxygen saturation in Arterial blood by Pulse oximetry 2024-09-14 01:45:00 96 /min [facility] Body weight 2024-09-11 09:00:00 80.468 kg Standing [facility] BMI 2024-09-11 09:00:00 29.52 kg/m2 [facility] Body height 2024-09-09 09:00:00 165.1 cm [facility] Epic Systolic blood pressure 2024-09-07 15:28:00 121 mm[Hg] [facility] Epic Diastolic blood pressure 2024-09-07 15:28:00 56 mm[Hg] [facility] Epic Heart rate 2024-09-07 15:28:00 83 /min [facility] Body temperature 2024-09-07 15:28:00 37.11 [place] [facility] Epic Respiratory rate 2024-09-07 15:28:00 18 /min [facility] Epic Oxygen saturation in Arterial blood by Pulse oximetry 2024-09-07 15:28:00 98 /min [facility] Body weight 2024-09-07 06:00:00 83.779 kg [facility] BMI 2024-09-07 06:00:00 30.74 kg/m2 [facility] Body height 2024-09-05 08:46:00 165.1 cm [facility] Systolic blood pressure 2024-09-07 15:28:00 121 mm[Hg] [facility] Diastolic blood pressure 2024-09-07 15:28:00 56 mm[Hg] [facility] Heart rate 2024-09-07 15:28:00 83 /min [facility] Body temperature 2024-09-07 15:28:00 37.11 [place] [facility] Respiratory rate 2024-09-07 15:28:00 18 /min [facility] Oxygen saturation in Arterial blood by Pulse oximetry 2024-09-07 15:28:00 98 /min [facility] Body weight 2024-09-07 06:00:00 83.779 kg [facility] BMI 2024-09-07 06:00:00 30.74 kg/m2 [facility] Body height 2024-09-05 08:46:00 165.1 cm [facility] Systolic blood pressure 2022-07-01 21:19:00 133 mm[Hg] [facility] Diastolic blood pressure 2022-07-01 21:19:00 70 mm[Hg] [facility] Heart rate 2022-07-01 21:19:00 98 /min [facility] Body height 2022-07-01 21:19:00 165.1 cm [facility] Body weight 2022-07-01 21:19:00 84.052 kg [facility] BMI 2022-07-01 21:19:00 30.84 kg/m2 [facility] Systolic blood pressure 2022-03-18 21:50:00 119 mm[Hg] [facility] Diastolic blood pressure 2022-03-18 21:50:00 80 mm[Hg] [facility] Heart rate 2022-03-18 21:50:00 90 /min [facility] Body height 2022-03-18 21:50:00 165.1 cm [facility] Body weight 2022-03-18 21:50:00 83.462 kg [facility] BMI 2022-03-18 21:50:00 30.62 kg/m2 [facility] Systolic blood pressure 2022-01-14 20:39:00 108 mm[Hg] [facility] Diastolic blood pressure 2022-01-14 20:39:00 68 mm[Hg] [facility] Heart rate 2022-01-14 20:39:00 84 /min [facility] Body height 2022-01-14 20:39:00 165.1 cm [facility] Body weight 2022-01-14 20:39:00 83.008 kg [facility] BMI 2022-01-14 20:39:00 30.45 kg/m2 [facility] Systolic blood pressure 2021-04-18 18:44:00 124 mm[Hg] Mana Guillen Diastolic blood pressure 2021-04-18 18:44:00 44 mm[Hg] Mana Guillen Heart rate 2021-04-18 18:44:00 96 /min Mana Guillen Body height 2021-04-18 18:44:00 163.8 cm Mana Guillen Body weight 2021-04-18 18:44:00 84.823 kg Mana Guillen BMI 2021-04-18 18:44:00 31.60 kg/m2 Mana Guillen Heart Rate 2023-03-30 17:30:00 [facility] Systolic (mm Hg) 2023-03-30 17:30:00 [facility] Diastolic (mm Hg) 2023-03-30 17:30:00 [facility] Weight 2023-03-30 17:30:00 [facility] Temperature Oral (F) 2023-01-28 16:15:00 98.2 F [facility] Heart Rate 2023-01-28 16:15:00 [facility] Systolic (mm Hg) 2023-01-28 16:15:00 [facility] Diastolic (mm Hg) 2023-01-28 16:15:00 [facility] Weight 2023-01-28 16:15:00 [facility] Temperature Oral (F) 2023-01-07 14:01:00 97.0 F [facility] Heart Rate 2023-01-07 14:01:00 [facility] Systolic (mm Hg) 2023-01-07 14:01:00 [facility] Diastolic (mm Hg) 2023-01-07 14:01:00 [facility] Weight 2023-01-07 14:01:00 [facility] Temperature Oral (F) 2022-12-26 20:57:00 99.2 F [facility] Heart Rate 2022-12-26 20:57:00 [facility] Systolic (mm Hg) 2022-12-26 20:57:00 [facility] Diastolic (mm Hg) 2022-12-26 20:57:00 [facility] Height 2022-12-26 20:57:00 5 [ft_i] [facility] Weight 2022-12-26 20:57:00 [facility] BMI Calculated 2022-12-26 20:57:00 [facility] Heart Rate 2022-09-30 14:01:00 [facility] Systolic (mm Hg) 2022-09-30 14:01:00 [facility] Diastolic (mm Hg) 2022-09-30 14:01:00 [facility] Height 2022-09-30 14:01:00 5 [ft_i] [facility] Weight 2022-09-30 14:01:00 [facility] BMI Calculated 2022-09-30 14:01:00 [facility] Heart Rate 2022-05-27 17:38:00 [facility] Systolic (mm Hg) 2022-05-27 17:38:00 [facility] Diastolic (mm Hg) 2022-05-27 17:38:00 [facility] Height 2022-05-27 17:38:00 5 [ft_i] [facility] Weight 2022-05-27 17:38:00 [facility] BMI Calculated 2022-05-27 17:38:00 [facility] Heart Rate 2022-03-28 15:04:00 [facility] Systolic (mm Hg) 2022-03-28 15:04:00 [facility] Diastolic (mm Hg) 2022-03-28 15:04:00 [facility] Height 2022-03-28 15:04:00 162.56 cm [facility] Weight 2022-03-28 15:04:00 [facility] BMI Calculated 2022-03-28 15:04:00 [facility] Heart Rate 2022-02-19 16:56:00 [facility] Systolic (mm Hg) 2022-02-19 16:56:00 [facility] Diastolic (mm Hg) 2022-02-19 16:56:00 [facility] Height 2022-02-19 16:56:00 165.1 cm [facility] Weight 2022-02-19 16:56:00 [facility] BMI Calculated 2022-02-19 16:56:00 [facility] Heart Rate 2021-12-16 18:12:00 [facility] Systolic (mm Hg) 2021-12-16 18:12:00 [facility] Diastolic (mm Hg) 2021-12-16 18:12:00 [facility] Height 2021-12-16 18:12:00 165.1 cm [facility] Weight 2021-12-16 18:12:00 [facility] BMI Calculated 2021-12-16 18:12:00 [facility] Heart Rate 2021-09-12 15:46:00 [facility] Respitory Rate 2021-09-12 15:46:00 [facility] Systolic (mm Hg) 2021-09-12 15:46:00 [facility] Diastolic (mm Hg) 2021-09-12 15:46:00 [facility] Height 2021-09-12 15:46:00 165.1 cm [facility] Weight 2021-09-12 15:46:00 [facility] BMI Calculated 2021-09-12 15:46:00 [facility] Heart Rate 2021-06-06 19:47:00 [facility] Systolic (mm Hg) 2021-06-06 19:47:00 [facility] Diastolic (mm Hg) 2021-06-06 19:47:00 [facility] Height 2021-06-06 19:47:00 152.4 cm [facility] Weight 2021-06-06 19:47:00 [facility] BMI Calculated 2021-06-06 19:47:00 [facility] Body height 2020-10-02 14:48:00 65 [in_us] [facility] Weight 2020-10-02 14:48:00 180 [lb_av] [facility] Body mass index (BMI) [Ratio] 2020-10-02 14:48:00 29.95 kg/m2 [facility] BP Systolic 2018-12-21 17:40:00 149 mm[Hg] Location: E; Position: Sitting [facility] BP Diastolic 2018-12-21 17:40:00 70 mm[Hg] Location: LUE; Position: Sitting [facility] Height 2018-12-21 17:40:00 65 [in_us] [facility] Weight 2018-12-21 17:40:00 181 [lb_av] [facility] Body Mass Index Calculated 2018-12-21 17:40:00 30.12 kg/m2 [facility] Temperature 2018-12-21 17:40:00 96.8 [degF] Method: Temporal [facility] Heart Rate 2018-12-21 17:40:00 77 /min Location: L Brachial Artery; Quality: Normal [facility] Respiration Rate 2018-12-21 17:40:00 16 /min Quality: Normal [facility] O2 SAT 2018-12-21 17:40:00 99 % Source: [facility] Systolic (mm Hg) 2018-10-24 00:50:00 [facility] Diastolic (mm Hg) 2018-10-24 00:50:00 [facility] Respitory Rate 2018-10-24 00:50:00 [facility] Heart Rate 2018-10-24 00:50:00 [facility] Temperature Oral (F) 2018-10-24 00:50:00 98.3 F [facility] Weight 2018-10-23 20:58:00 [facility] Temperature Oral (F) 2018-10-23 20:58:00 98.2 F [facility] Respitory Rate 2018-10-23 20:58:00 [facility] Heart Rate 2018-10-23 20:58:00 [facility] BMI Calculated 2018-10-23 20:58:00 [facility] Height 2018-10-23 20:58:00 165.1 cm [facility] Systolic (mm Hg) 2018-10-23 20:58:00 [facility] Diastolic (mm Hg) 2018-10-23 20:58:00 [facility] BP Systolic 2018-09-01 08:21:00 162 mm[Hg] Location: LUE; Position: Sitting [facility] BP Diastolic 2018-09-01 08:21:00 81 mm[Hg] Location: LUE; Position: Sitting [facility] Height 2018-09-01 08:21:00 65 [in_us] [facility] Weight 2018-09-01 08:21:00 180.125 [lb_av] [facility] Body Mass Index Calculated 2018-09-01 08:21:00 29.97 kg/m2 [facility] Temperature 2018-09-01 08:21:00 95.9 [degF] Method: Temporal [facility] Heart Rate 2018-09-01 08:21:00 74 /min Location: L Brachial Artery; Quality: Normal [facility] Respiration Rate 2018-09-01 08:21:00 16 /min Quality: Normal [facility] O2 SAT 2018-09-01 08:21:00 100 % Source: RA [facility] BP Systolic 2018-05-19 17:04:00 107 mm[Hg] Location: LUE; Position: Sitting [facility] BP Diastolic 2018-05-19 17:04:00 62 mm[Hg] Location: LUE; Position: Sitting [facility] Height 2018-05-19 17:04:00 65 [in_us] [facility] Weight 2018-05-19 17:04:00 172 [lb_av] [facility] Body Mass Index Calculated 2018-05-19 17:04:00 28.62 kg/m2 [facility] Temperature 2018-05-19 17:04:00 98 [degF] Method: Temporal [facility] Heart Rate 2018-05-19 17:04:00 83 /min [facility] Respiration Rate 2018-05-19 17:04:00 16 /min [facility] O2 SAT 2018-05-19 17:04:00 99 % Source: RA [facility] Height 2018-03-25 14:37:00 65 [in_us] [facility] Weight 2018-03-25 14:37:00 167.5 [lb_av] [facility] Body Mass Index Calculated 2018-03-25 14:37:00 27.87 kg/m2 [facility] BP Systolic 2018-03-16 15:29:00 151 mm[Hg] Location: LUE; Position: Sitting [facility] BP Diastolic 2018-03-16 15:29:00 79 mm[Hg] Location: LUE; Position: Sitting [facility] Height 2018-03-16 15:29:00 65 [in_us] [facility] Weight 2018-03-16 15:29:00 169.5 [lb_av] [facility] Body Mass Index Calculated 2018-03-16 15:29:00 28.21 kg/m2 [facility] Temperature 2018-03-16 15:29:00 97.1 [degF] Method: Tympanic [facility] Heart Rate 2018-03-16 15:29:00 70 /min Location: L Brachial Artery; Quality: Normal [facility] Respiration Rate 2018-03-16 15:29:00 14 /min Quality: Normal [facility] O2 SAT 2018-03-16 15:29:00 97 % Source: [facility] Procedures Procedure Date / Time Performed Performing Clinician Source POCT Glucose 2024-10-14 00:00:00 [facility] Basic Metabolic Panel 2024-10-14 00:00:00 [facility] Magnesium Level 2024-10-14 00:00:00 [facility] Hepatic Function Panel 2024-10-14 00:[facility]00 [facility] 2024-10-06 00:[facility]00 [facility] BLOOD [facility]UCOSE 2024-10-03 08:00:00 Petra Vaughan [facility] [place] [facility] POCT BLOOD GLUCOSE 2024-10-03 00:06:00 Petra Vaughan [facility] POCT BLOOD GLUCOSE 2024-10-02 16:30:00 Petra Vaughan [facility] [place] [facility] POCT BLOOD GLUCOSE 2024-10-02 11:00:00 Petra Vaughan [facility] [place] [facility] POCT BLOOD GLUCOSE 2024-10-02 07:00:00 Petra Vaughan [facility] [place] [facility] POCT BLOOD GLUCOSE 2024-10-01 21:45:00 Petra Vaughan [facility] [place] [facility] POCT BLOOD GLUCOSE 2024-10-01 18:48:00 Petra Vaughan [facility] POCT BLOOD GLUCOSE 2024-10-01 13:10:00 Petra Vaughan [facility] [place] [facility] POCT BLOOD GLUCOSE 2024-10-01 07:11:00 Petra Vaughan [facility] [place] [facility] POCT BLOOD GLUCOSE 2024-09-30 22:54:00 Petra Vaughan [facility] POCT BLOOD GLUCOSE 2024-09-30 17:30:00 Petra Vaughan [facility] POCT BLOOD GLUCOSE 2024-09-30 13:06:00 Petra Vaughan [facility] POCT BLOOD GLUCOSE 2024-09-30 08:00:00 Ajaz, Petra [facility] [place] [facility] COMPLETE BLOOD COUNT W/DIFF AND PLATELET 2024-09-30 06:30:00 Al Dossari Brittani [facility] COMPLETE BLOOD COUNT 2024-09-30 06:30:00 Al Hannah ousmaneBrittani [facility] AUTOMATED DIFFERENTIAL 2024-09-30 06:30:00 Al Do ssari Brittani [facility] POCT BLOOD GLUCOSE 2024-09-29 21:00:00 Petra Vaughan [facility] POCT BLOOD GLUCOSE 2024-09-29 18:48:00 Petra Vaughan [facility] POCT BLOOD GLUCOSE 2024-09-29 16:01:00 Petra Vaughan [facility] POCT BLOOD GLUCOSE 2024-09-29 08:47:00 Al Dossar i, Brittani [facility] POCT BLOOD GLUCOSE 2024-09-28 21:00:00 Al Dossar i, Brittani [facility] POCT BLOOD GLUCOSE 2024-09-28 08:41:00 Al Dossar i, Brittani [facility] POCT BLOOD GLUCOSE 2024-09-27 22:55:00 Al Dossar i, Brittani [facility] POCT BLOOD GLUCOSE 2024-09-27 08:41:00 Al Dossar i, Brittani [facility] POCT Glucose 2024-09-27 00:00:00 [facility] POCT BLOOD GLUCOSE 2024-09-26 23:05:00 Al Dossar i, Brittani [facility] POCT BLOOD GLUCOSE 2024-09-26 08:57:00 Al Dossar i, Brittani [facility] POCT BLOOD GLUCOSE 2024-09-25 21:02:00 Al Dossar i, Brittani [facility] POCT BLOOD GLUCOSE 2024-09-25 09:03:00 Al Dossar i, Brittani [facility] BASIC METABOLIC PANEL 2024-09-25 06:10:[address] [facility] COMPLETE BLOOD COUNT W/DIFF AND PLATELET 2024-09-25 06:10:[address] [facility] COMPLETE BLOOD COUNT 2024-09-25 06:10:00 Alexus, [facility] AUTOMATED DIFFERENTIAL 2024-09-25 06:10:00 Alexus, [facility] POCT BLOOD GLUCOSE 2024-09-24 21:38:00 [facility] 2024-09-24 09:03:00 Al Dossar i, Brittani [facility] POCT BLOOD GLUCOSE 2024-09-23 21:40:00 Al Dossar i, Brittani [facility] POCT BLOOD GLUCOSE 2024-09-23 17:20:00 [facility], [facility] POCT BLOOD GLUCOSE 2024-09-23 13:02:00 [facility], [facility] POCT BLOOD GLUCOSE 2024-09-23 07:41:00 [facility], [facility] POCT BLOOD GLUCOSE 2024-09-23 00:48:00 [facility], [facility] POCT BLOOD GLUCOSE 2024-09-22 16:47:00 [facility], [facility] POCT BLOOD GLUCOSE 2024-09-22 13:33:00 [facility], [facility] POCT BLOOD GLUCOSE 2024-09-22 08:16:00 [facility] 2024-09-22 00:43:00 [facility], [facility] POCT BLOOD GLUCOSE 2024-09-21 17:31:00 [facility], [facility] POCT BLOOD GLUCOSE 2024-09-21 13:52:00 [facility], [facility] POCT BLOOD GLUCOSE 2024-09-21 07:19:00 [facility], [facility] POCT BLOOD GLUCOSE 2024-09-20 22:55:00 [facility], [facility] POC GLUCOSE UNSOLICITED RESULTS 2024-09-20 15:57:00 Fredy Paulino [facility] POC GLUCOSE UNSOLICITED RESULTS 2024-09-20 11:51:00 SolipuramFredy Orosco [facility] POC GLUCOSE UNSOLICITED RESULTS 2024-09-20 05:36:00 SolipFredy roa [facility] BASIC METABOLIC PANEL 2024-09-20 04:44:00 Nuris Mcdonough [facility] HEPATIC FUNCTION PANEL 2024-09-20 04:44:00 Leeann Mcdonough [facility] MAGNESIUM LEVEL 2024-09-20 04:44:00 Edgar Mcdonough [facility] COMPLETE BLOOD COUNT W/DIFF AND PLATELET 2024-09-20 04:44:00 Obijiofor, Obiageli Santa [facility] AUTOMATED DIFFERENTIAL 2024-09-20 04:44:00 Obiji ofor, Obiageli [facility] COMPLETE BLOOD COUNT 2024-09-20 04:44:00 Obijiof or, Obiageli [facility] REFLEX MAN DIFF AND MORPH - DO NOT ORDER 2024-09-20 04:44:00 Obijiofor, Obiageli Santa [facility] POC GLUCOSE UNSOLICITED RESULTS 2024-09-20 01:11:00 Solipuram, Fredy Rivera Orosco [facility] POC GLUCOSE UNSOLICITED RESULTS 2024-09-19 21:47:00 SolipuraFredy ford Orosco [facility] POC GLUCOSE UNSOLICITED RESULTS 2024-09-19 15:43:00 SolipuramFredy Orosco [facility] POC GLUCOSE UNSOLICITED RESULTS 2024-09-19 11:48:00 SolipuramFredy Orosco [facility] POC GLUCOSE UNSOLICITED RESULTS 2024-09-19 06:16:00 Solipuram, Fredy Rivera [facility] BLOOD CULTURE 2024-09-19 04:22:00 ObijiClaudia lieberman [facility] BASIC METABOLIC PANEL 2024-09-19 04:15:00 Nuris Mcdonough [facility] HEPATIC FUNCTION PANEL 2024-09-19 04:15:00 Leeann Mcdonough [facility] MAGNESIUM LEVEL 2024-09-19 04:15:00 Edgar Mcdonough [facility] COMPLETE BLOOD COUNT W/DIFF AND PLATELET 2024-09-19 04:15:00 Obijiofor, Obiageli Santa [facility] BLOOD CULTURE 2024-09-19 04:15:00 Obijiofor, Claudia chappell [facility] AUTOMATED DIFFERENTIAL 2024-09-19 04:15:00 Obiji ofor, Obiageli [facility] PROCALCITONIN LEVEL 2024-09-19 04:15:00 Obijiofo r, Obiageli [facility] COMPLETE BLOOD COUNT 2024-09-19 04:15:00 Obijiof or, Obiageli [facility] REFLEX MAN DIFF AND MORPH - DO NOT ORDER 2024-09-19 04:15:00 Obijiofor, Cathygeli [facility] POC GLUCOSE UNSOLICITED RESULTS 2024-09-18 22:30:00 [facility] UNSOLICITED RESULTS 2024-09-18 20:29:00 Fredy Paulino [facility] XR CHEST 1 VIEW 2024-09-18 16:09:00 Bennett Donaldson [facility] POC GLUCOSE UNSOLICITED RESULTS 2024-09-18 15:35:00 Franklin Wetzel [facility] POC GLUCOSE UNSOLICITED RESULTS 2024-09-18 11:24:00 Franklin Wetzel [facility] POC GLUCOSE UNSOLICITED RESULTS 2024-09-18 06:29:00 Franklin Wetzel [facility] BASIC METABOLIC PANEL 2024-09-18 04:20:00 Nuris Mcdonough [facility] HEPATIC FUNCTION PANEL 2024-09-18 04:20:00 Leeann Mcdonough [facility] MAGNESIUM LEVEL 2024-09-18 04:20:00 Edgar Mcdonough [facility] COMPLETE BLOOD COUNT W/DIFF AND PLATELET 2024-09-18 04:20:00 Fredy Paulino Orosco [facility] COMPLETE BLOOD COUNT 2024-09-18 04:20:00 Fredy Dale am Orosco [facility] AUTOMATED DIFFERENTIAL 2024-09-18 04:20:00 Solip uram, Fredy Orosco [facility] POC GLUCOSE UNSOLICITED RESULTS 2024-09-17 20:07:00 Bhora, Franklin Rivera [facility] POC GLUCOSE UNSOLICITED RESULTS 2024-09-17 16:01:00 Bhora, Franklin Rivera [facility] XR CHEST 1 VIEW 2024-09-17 14:04:11 Bhora, Franklin Rivera [facility] POC GLUCOSE UNSOLICITED RESULTS 2024-09-17 11:38:00 Bhora, Franklin Rivera [facility] POC GLUCOSE UNSOLICITED RESULTS 2024-09-17 09:58:00 Bhora, Franklin Rivera [facility] POC GLUCOSE UNSOLICITED RESULTS 2024-09-17 07:12:00 Bhora, Franklin Rivera [facility] POC GLUCOSE UNSOLICITED RESULTS 2024-09-17 06:40:00 Bhora, Franklin Rivera [facility] BASIC METABOLIC PANEL 2024-09-17 03:51:00 Nuris Mcdonough [facility] HEPATIC FUNCTION PANEL 2024-09-17 03:51:00 Leeann Mcdonough [facility] MAGNESIUM LEVEL 2024-09-17 03:51:00 Edgar Mcdonough [facility] COMPLETE BLOOD COUNT W/DIFF AND PLATELET 2024-09-17 03:51:00 Solipchristinam, Fredy Rivera Orosco [facility] COMPLETE BLOOD COUNT 2024-09-17 03:51:00 Solipur am, Fredy Orosco [facility] AUTOMATED DIFFERENTIAL 2024-09-17 03:51:00 Solip uram, Fredy Rivera Orosco [facility] POC GLUCOSE UNSOLICITED RESULTS 2024-09-16 16:11:00 Solipuram, Fredy Orosco [facility] POC GLUCOSE UNSOLICITED RESULTS 2024-09-16 12:34:00 Solipuram, Fredy Rivera Orosco [facility] POC GLUCOSE UNSOLICITED RESULTS 2024-09-16 09:51:00 Solipuralogan, Fredy Orosco [facility] COMPREHENSIVE METABOLIC PANEL 2024-09-16 04:40:00 Fauzia Penn [facility] BILIRUBIN DIRECT 2024-09-16 04:40:00 Edgar Mcdonough [facility] MAGNESIUM LEVEL 2024-09-16 04:40:00 Edgar Mcdonough r [facility] COMPLETE BLOOD COUNT W/DIFF AND PLATELET 2024-09-16 04:40:00 Solipuram, Fredy Rivera Orosco [facility] COMPLETE BLOOD COUNT 2024-09-16 04:40:00 Solipur am, Fredy Rivera Orosco [facility] AUTOMATED DIFFERENTIAL 2024-09-16 04:40:00 Solip uram, Fredy Rivera Orosco [facility] POC GLUCOSE UNSOLICITED RESULTS 2024-09-16 01:20:00 Solipuram, Fredy Rivera Orosco [facility] POC GLUCOSE UNSOLICITED RESULTS 2024-09-15 20:52:00 Solipuram, [facility] POC GLUCOSE UNSOLICITED RESULTS 2024-09-15 16:35:00 SolipFredy roa [facility] MRSA BY PCR 2024-09-15 13:13:00 Sonal Saldivar [facility] POC GLUCOSE UNSOLICITED RESULTS 2024-09-15 11:41:00 Reuben Styles [facility] POC GLUCOSE UNSOLICITED RESULTS 2024-09-15 06:29:00 Reuben Styles [facility] BASIC METABOLIC PANEL 2024-09-15 03:46:00 Nuris Mcdonough [facility] HEPATIC FUNCTION PANEL 2024-09-15 03:46:00 Leeann Mcdonough [facility] MAGNESIUM LEVEL 2024-09-15 03:46:00 Edgar Mcdonough [facility] COMPLETE BLOOD COUNT W/DIFF AND PLATELET 2024-09-15 03:46:00 Edgar Mcdonough [facility] COMPLETE BLOOD COUNT 2024-09-15 03:46:00 Edgar Mcdonough [facility] AUTOMATED DIFFERENTIAL 2024-09-15 03:46:00 Leeann Mcdonough [facility] Basic Metabolic Panel 2024-09-15 00:00:00 [facility] POC GLUCOSE UNSOLICITED RESULTS 2024-09-14 20:30:00 Reuben Styles [facility] POC GLUCOSE UNSOLICITED RESULTS 2024-09-14 16:12:00 Reuben Styles [facility] POC GLUCOSE UNSOLICITED RESULTS 2024-09-14 12:22:00 Reuben Sytles [facility] LACTIC ACID WITH 2 HOUR REFLEX 2024-09-14 11:36:00 Edgar Mcdonough [facility] TRANSPLANT RESPIRATORY VIRAL PANEL 2024-09-14 11:35:00 Sharonda, Edgar Rivera [facility] COMPLETE BLOOD COUNT W/DIFF AND PLATELET 2024-09-14 05:24:00 Fouche, Manuel Cohen [facility] PROTIME-INR 2024-09-14 05:24:00 Fouche, Manuel Cohen [facility] PTT 2024-09-14 05:24:00 Fouche, Manuel Cohen [facility] COMPLETE BLOOD COUNT 2024-09-14 05:24:00 Fouche, Sudhir Cohen [facility] AUTOMATED DIFFERENTIAL 2024-09-14 05:24:00 Fouche, And sherita Cohen [facility] URINE CULTURE 2024-09-14 04:48:00 Fouche, Manuel aguilar [facility] UA WITH CULTURE IF INDICATED 2024-09-14 04:48:00 Fouche, Manuel Cohen [facility] B-TYPE NATRIURETIC PEPTIDE 2024-09-14 04:03:00 Fouche, Manuel Cohen [facility] TROPONIN I HIGH SENSITIVITY CARESET (1ST HR) 2024-09-14 04:03:00 Fouche, Manuel Cohen [facility] CT ANGIOGRAM CHEST PULMONARY EMBOLISM 2024-09-14 03:38:18 Fouche, Manuel Cohen [facility] ECG 12-LEAD 2024-09-14 03:12:59 Fouche, Manuel Cohen [facility] BLOOD CULTURE 2024-09-14 03:12:00 Fouche, Manuel aguilar [facility] GRAM NEGATIVE BLOOD CULTURE EUGENE 2024-09-14 03:12:00 WolnereidaerReuben [facility] INFLUENZA A/B ANTIGENS 2024-09-14 02:59:00 [facility] DMITRY 2024-09-14 02:59:00 Fouche, Manuel Cohen [facility] BASIC METABOLIC PANEL 2024-09-14 02:58:00 Fouche, [facility]PAT[facility]CTION [facility]EL 2024-09-14 02:58:00 Fouche, [facility] CREATINE KINASE (CK TOTAL) 2024-09-14 02:58:00 Fouche, Manuel Cohen [facility] BLOOD GAS, VENOUS 2024-09-14 02:58:00 [facility]ouche[facility] LACTIC ACID LEVEL 2024-09-14 02:58:00 Fouche, Manuel Falcon [facility] LIPASE LEVEL 2024-09-14 02:58:00 Fouche, Manuel Cohen [facility] COMPLETE BLOOD COUNT W/DIFF AND PLATELET 2024-09-14 02:58:00 Fouche, Manuel Cohen [facility] D-DIMER, QUANTITATIVE 2024-09-14 02:58:00 Fouche, Andr ew [facility] AUTOMATED DIFFERENTIAL 2024-09-14 02:58:00 Fouche, [facility] PROCALCITONIN LEVEL 2024-09-14 02:58:00 Fouche, Manuel Cohen [facility] TROPONIN I HIGH SENSITIVITY CARESET 2024-09-14 02:58:00 Fouche, Manuel Cohen [facility] TROPONIN I HIGH SENSITIVITY CARESET (BASELINE) 2024-09-14 02:58:00 Fouche, Manuel Cohen [facility] COMPLETE BLOOD COUNT 2024-09-14 02:58:00 Fouchleida, Sudhir Cohen [facility] REFLEX MAN DIFF AND MORPH - DO NOT ORDER 2024-09-14 02:58:00 Fozack, Manuel Cohen [facility] XR CHEST 1 VIEW 2024-09-14 02:57:52 Manuel Wiggins [facility] ECG 12-LEAD 2024-09-14 02:49:14 Fozack, Manuel Cohen [facility] CRITICAL CARE 2024-09-14 02:40:00 Manuel Wiggins [facility] Basic Metabolic Panel 2024-09-14 00:00:00 [facility] UA WITH MICROSCOPIC NO CULTURE 2024-09-13 18:58:00 Petra Vaughan [facility] XR CHEST 1 VIEW 2024-09-13 16:22:21 Al Brittani Mustafa [facility] CORONAVIRUS (COVID-19) DMITRY ICU/ISOLATION 2024-09-13 15:49:00 [facility] BASIC METABOLIC PANEL 2024-09-13 15:44:00 Al Dos loisBrittani [facility] COMPLETE BLOOD COUNT W/DIFF AND PLATELET 2024-09-13 15:44:00 Al DossariBrittani [facility] COMPLETE BLOOD COUNT 2024-09-13 15:44:00 Al Brittani Rodriguez [facility] AUTOMATED DIFFERENTIAL 2024-09-13 15:44:00 Al Do ssariBrittani [facility] BASIC METABOLIC PANEL 2024-09-13 05:56:00 Petra Vaughan [facility] Urine Culture 2024-09-13 00:00:00 Lemuel aguayo [facility] XR CHEST 1 VIEW 2024-09-12 19:39:48 Al DosriBrittani [facility] ECG 12 lead 2024-09-12 00:00:00 [facility] POCT BLOOD GLUCOSE 2024-09-11 21:29:00 Al Dossar i, [facility] PO[facility] BLOOD GLUCOSE 2024-09-11 17:38:00 Al Dossar i, Brittani [facility] POCT BLOOD GLUCOSE 2024-09-11 11:24:00 Al Dossar i, Timurna Jamie [facility] POCT BLOOD GLUCOSE 2024-09-11 07:25:00 Al Dossar i, [facility] POCT BLOOD GLUCOSE 2024-09-10 20:57:00 Al Dossar i, Brittani Chadwickannam [facility] POCT BLOOD GLUCOSE 2024-09-10 17:06:00 Al Dossar i, [facility]indy [facility] POCT BLOOD GLUCOSE 2024-09-10 11:33:00 Al Dossar i, rBittani [facility] POCT BLOOD GLUCOSE 2024-09-10 07:17:00 Al Dossar i, [facility] POCT BLOOD GLUCOSE 2024-09-09 21:58:00 Al Dossar i, [facility] POCT BLOOD GLUCOSE 2024-09-09 17:00:00 Al Dossar i, [facility] XR CHEST 1 VIEW 2024-09-09 14:48:36 Irene Anderson [facility] POCT BLOOD GLUCOSE 2024-09-09 11:24:00 Al Dossar i, [facility] POCT BLOOD GLUCOSE 2024-09-09 07:20:00 Al Dossar i, Brittani [facility] COMPREHENSIVE METABOLIC PANEL 2024-09-09 07:04:[address] [facility] BILIRUBIN DIRECT 2024-09-09 07:04:00 Alexus, [facility] COMPLETE BLOOD COUNT W/DIFF AND PLATELET 2024-09-09 07:04:[address] [facility] COMPLETE BLOOD COUNT 2024-09-09 07:04:[address] [facility] AUTOMATED DIFFERENTIAL 2024-09-09 07:04:[address] [facility] XR chest 1 view 2024-09-09 00:00:00 Karson pacheco [facility] POCT BLOOD GLUCOSE 2024-09-08 20:38:00 Al Dossar i, Brittani [facility] POCT BLOOD GLUCOSE 2024-09-08 16:30:00 Al Dossar i, Brittani [facility] POCT BLOOD GLUCOSE 2024-09-08 07:00:00 Al Dossar i, [facility] POCT BLOOD GLUCOSE 2024-09-08 01:00:00 Al Dossar i, Brittani [facility] Wound Care 2024-09-08 00:00:00 [facility] POC GLUCOSE UNSOLICITED RESULTS 2024-09-07 15:27:00 Annie Ledezma [facility] POC GLUCOSE UNSOLICITED RESULTS 2024-09-07 11:48:00 Annie Ledezma [facility] POC GLUCOSE UNSOLICITED RESULTS 2024-09-07 07:38:00 Annie Ledezma [facility] XR CHEST 1 VIEW 2024-09-07 06:56:00 Ana María Gonzalez [facility] COMPLETE BLOOD COUNT W/DIFF AND PLATELET 2024-09-07 04:52:00 Annie Ledezma [facility] COMPLETE BLOOD COUNT 2024-09-07 04:52:[address] [facility] AUTOMATED DIFFERENTIAL 2024-09-07 04:52:[address] [facility] BASIC METABOLIC PANEL 2024-09-07 04:52:00 Annie Ledezma [facility] POC GLUCOSE UNSOLICITED RESULTS 2024-09-06 15:28:00 Annie Ledezma [facility] PREPARE RBC 2024-09-06 13:41:08 Rene Gilbert [facility] TRANSFUSE RED BLOOD CELLS 2024-09-06 13:34:00 Pramod Gilbert [facility] POC GLUCOSE UNSOLICITED RESULTS 2024-09-06 11:39:00 Annie Ledezma [facility] TRANSFUSE RED BLOOD CELLS 2024-09-06 09:46:00 Pramod Gilbert [facility] POC GLUCOSE UNSOLICITED RESULTS 2024-09-06 06:27:00 LedezmaAnnie [facility] B-TYPE NATRIURETIC PEPTIDE 2024-09-06 04:22:00 [place] Franco [facility] COMPLETE BLOOD COUNT W/DIFF AND PLATELET 2024-09-06 04:22:00 LedezmaAnnie [facility] COMPLETE BLOOD COUNT 2024-09-06 04:22:00 Annie Ledezma [facility] AUTOMATED DIFFERENTIAL 2024-09-06 04:22:[address] [facility] BASIC METABOLIC PANEL 2024-09-06 04:22:[address] [facility] POC GLUCOSE UNSOLICITED RESULTS 2024-09-05 15:35:00 LedezmaAnnie [facility] XR CHEST 1 VIEW 2024-09-05 15:09:00 [place] Franco [facility] POC GLUCOSE UNSOLICITED RESULTS 2024-09-05 11:44:00 DarienAnnie [facility] COMPLETE BLOOD COUNT W/DIFF AND PLATELET 2024-09-05 06:07:00 DarienAnnie [facility] COMPLETE BLOOD COUNT 2024-09-05 06:07:00 DarienAnnie [facility] AUTOMATED DIFFERENTIAL 2024-09-05 06:07:00 DarienAnnie [facility] BASIC METABOLIC PANEL 2024-09-05 06:07:00 DarienAnnie [facility] POC GLUCOSE UNSOLICITED RESULTS 2024-09-05 05:42:00 DarienAnnie [facility] ECG 12 lead 2024-09-05 00:00:00 [facility] PREPARE RBC 2024-09-04 22:19:06 DarienAnnie [facility] TRANSFUSE RED BLOOD CELLS 2024-09-04 22:16:00 Nohemi Ledezma [facility] TYPE AND SCREEN 2024-09-04 18:52:00 Rene Gilbert [facility] POC GLUCOSE UNSOLICITED RESULTS 2024-09-04 15:44:00 DarienAnnie [facility] CT CHEST WO IV CONTRAST 2024-09-04 12:41:53 Lizette Dailey [facility] POC GLUCOSE UNSOLICITED RESULTS 2024-09-04 11:45:00 DarienAnnie [facility] POC GLUCOSE UNSOLICITED RESULTS 2024-09-04 05:56:00 [place] Annie [facility] MAGNESIUM LEVEL 2024-09-04 05:17:00 Bridgette, Elke Karson ial [facility] PHOSPHORUS LEVEL 2024-09-04 05:17:00 Bridgette, Elke Duffo rial [facility] COMPLETE BLOOD COUNT W/DIFF AND PLATELET 2024-09-04 05:17:00 Bridgette, [facility] CALCIUM LEVEL IONIZED WHOLE BLOOD 2024-09-04 05:17:00 Bridgette, [facility] COMPLETE BLOOD COUNT 2024-09-04 05:17:00 Bridgette, [facility] AUTOMATED DIFFERENTIAL 2024-09-04 05:17:00 BridgetteChanningi o [facility] BASIC METABOLIC PANEL 2024-09-04 05:17:00 Bridgette, [facility] POC GLUCOSE UNSOLICITED RESULTS 2024-09-03 15:23:00 Annie Ledezma [facility] US LOWER EXTREMITY VENOUS DOPPLER RIGHT 2024-09-03 15:04:00 Annie Ledezma [facility] XR CHEST 1 VIEW 2024-09-03 13:43:48 Annie Ledezma [facility] POC GLUCOSE UNSOLICITED RESULTS 2024-09-03 11:27:00 Annie Ledezma [facility] POC GLUCOSE UNSOLICITED RESULTS 2024-09-03 06:16:00 Annie Ledezma [facility] MAGNESIUM LEVEL 2024-09-03 03:59:00 Bridgette, [facility] PHOSPHORUS LEV[facility] 2024-09-03 03:59:00 Bridgette, [facility] COMPLETE BLOOD COUNT W/DIFF AND PLATELET 2024-09-03 03:59:00 Bridgette, [facility] CALCIUM LEVEL IONIZED WHOLE BLOOD 2024-09-03 03:59:00 Bridgette, [facility] COMPLETE BLOOD COUNT 2024-09-03 03:59:00 Bridgette, [facility] Epic AUTOMATED DIFFERENTIAL 2024-09-03 03:59:00 Bridgette, Carleen o [facility] BASIC METABOLIC PANEL 2024-09-03 03:59:00 Bridgette, [facility] POC GLUCOSE UNSOLICITED RESULTS 2024-09-02 23:45:00 Annie Ledezma [facility] POC GLUCOSE UNSOLICITED RESULTS 2024-09-02 16:55:00 Annie Ledezma [facility] POC GLUCOSE UNSOLICITED RESULTS 2024-09-02 12:25:00 DarienAnnie [facility] XR CHEST 1 VIEW 2024-09-02 12:10:00 Rene Gilbert [facility] Epic POC GLUCOSE UNSOLICITED RESULTS 2024-09-02 06:53:00 Fredy Paulino [facility] MAGNESIUM LEVEL 2024-09-02 05:17:00 Bridgette, [facility] Epic PHOSPHORUS LEVEL 2024-09-02 05:17:00 Bridgette, Elke [facility] Hospital[facility] Epic COMPLETE BLOOD COUNT W/DIFF AND PLATELET 2024-09-02 05:17:00 Bridgette, [facility] CALCIUM LEVEL IONIZED WHOLE BLOOD 2024-09-02 05:17:00 Bridgette, [facility] COMPLETE BLOOD COUNT 2024-09-02 05:17:00 Bridgette, [facility] AUTOMATED DIFFERENTIAL 2024-09-02 05:17:00 Bridgette, Carleen o [facility] BASIC METABOLIC PANEL 2024-09-02 05:17:00 Bridgette, [facility] POC GLUCOSE UNSOLICITED RESULTS 2024-09-01 16:59:00 Fredy Paulino [facility] POC GLUCOSE UNSOLICITED RESULTS 2024-09-01 12:04:00 Dem[facility] MAGNESIUM [facility] 2024-09-01 10:20:00 ChakuSeeMaurice Hardy rial [facility] PHOSPHORUS LEVEL 2024-09-01 10:20:00 RoxanakuMaurice Mem orial [facility] BASIC METABOLIC PANEL 2024-09-01 10:20:00 RoxanakNickie begum [facility] POC GLUCOSE UNSOLICITED RESULTS 2024-09-01 08:10:00 Demkaran [facility] X[facility] CHEST 1 VIEW 2024-09-01 04:10:24 Abi Moulton [facility] POC GLUCOSE UNSOLICITED RESULTS 2024-09-01 03:23:00 Demla, [facility] POC GLUCOSE UNSOLICITED RESULTS 2024-09-01 02:59:00 Demla, [facility] MAGNESIUM LEVEL 2024-09-01 02:58:00 Bridgette, [facility] PHOSPHORUS LEVEL 2024-09-01 02:58:00 Bridgette, [facility] COMPLETE BLOOD COUNT W/DIFF AND PLATELET 2024-09-01 02:58:00 Bridgette, [facility] CALCIUM LEVEL IONIZED WHOLE BLOOD 2024-09-01 02:58:00 Bridgette, [facility] COMPLETE BLOOD COUNT 2024-09-01 02:58:00 Bridgette, [facility] AUTOMATED DIFFERENTIAL 2024-09-01 02:58:00 Bridgette, Carleen o [facility] BASIC METABOLIC PANEL 2024-09-01 02:58:00 Bridgette, [facility] POC GLUCOSE UNSOLICITED RESULTS 2024-09-01 00:02:00 Shannon, [facility] POCT Blood Glucose 2024-09-01 00:00:00 [facility] GLUCOSE UNSOLICITED RESULTS 2024-08-31 19:52:00 Daphneykaran, [facility] MAGNESIUM LEVEL 2024-08-31 18:16:00 Chaku, Maurice Hardy rial [place] Epic PHOSPHORUS LEVEL 2024-08-31 18:16:00 Chaku, Maurice Mem orial [place] [facility] BASIC METABOLIC PANEL 2024-08-31 18:16:00 Chaku, Aksha y [facility] POC GLUCOSE UNSOLICITED RESULTS 2024-08-31 16:25:00 Daphneykaran, [facility] POC GLUCOSE UNSOLICITED RESULTS 2024-08-31 11:40:00 Shannon, [facility] POC GLUCOSE UNSOLICITED RESULTS 2024-08-31 08:06:00 Shannon [facility] XR CHEST 1 VIEW 2024-08-31 04:56:41 Anais, [facility]UCOSE UNSOLICITED RESULTS 2024-08-31 03:35:00 Shannon, [facility] COMPLETE BLOOD COUNT W/DIFF AND PLATELET 2024-08-31 03:32:00 Bridgette, [facility] COMPLETE BLOOD COUNT 2024-08-31 03:32:00 Bridgette, [facility] AUTOMATED DIFFERENTIAL 2024-08-31 03:32:00 Bridgette, Carleen o [facility] MAGNESIUM LEVEL 2024-08-31 03:31:00 Bridgette, [facility] [place] Epic PHOSPHORUS LEVEL 2024-08-31 03:31:00 Bridgette, [facility] CALCIUM LEVEL IONIZED WHOLE BLOOD 2024-08-31 03:31:00 Bridgette, [facility] BASIC METABOLIC PANEL 2024-08-31 03:31:00 Bridgette, [facility] POC GLUCOSE UNSOLICITED RESULTS 2024-08-30 22:03:00 Daphneyla, [facility] POC GLUCOSE UNSOLICITED RESULTS 2024-08-30 16:48:00 [facility]Elizabeth[facility] POC GLUCOSE UNSOLICITED RESULTS 2024-08-30 11:43:00 Elizabeth [facility] POC GLUCOSE UNSOLICITED RESULTS 2024-08-30 07:22:00 ShannonElizabethK[facility] XR CHEST 1 VIEW 2024-08-30 03:59:51 Anais, L uis Ezra [facility] MAGNESIUM LEVEL 2024-08-30 03:09:00 Bridgette, [facility] PHOSPHORUS LEVEL 2024-08-30 03:09:00 Bridgette, [facility] COMPLETE BLOOD COUNT W/DIFF AND PLATELET 2024-08-30 03:09:00 Bridgette, [facility] CALCIUM LEVEL IONIZED WHOLE BLOOD 2024-08-30 03:09:00 Bridgette, [facility] COMPLETE BLOOD COUNT 2024-08-30 03:09:00 Bridgette, [facility] AUTOMATED DIFFERENTIAL 2024-08-30 03:09:00 Bridgette, Carleen o [facility] BASIC METABOLIC PANEL 2024-08-30 03:09:00 Bridgette, [facility] POC GLUCOSE UNSOLICITED RESULTS 2024-08-30 00:01:00 Shannon Kaveh [facility] US LOWER EXTREMITY VENOUS DOPPLER BILATERAL 2024-08-29 23:44:06 Ced Carlton [facility] POC GLUCOSE UNSOLICITED RESULTS 2024-08-29 20:24:00 Shannon [facility] TRANST[facility]ORACIC ECHO (TTE) COMPLETE 2024-08-29 18:16:00 Oliva Cyr [facility] POC GLUCOSE UNSOLICITED RESULTS 2024-08-29 15:12:00 Daphneykaran [facility] POC GLUCOSE UNSOLICITED RESULTS 2024-08-29 11:04:00 Daphneykaran [facility] POC GLUCOSE UNSOLICITED RESULTS 2024-08-29 07:14:00 DaphneykaranElizabethK[facility]hT[facility] POC GLUCOSE UNSOLICITED RESULTS 2024-08-29 04:48:00 Shannon [facility] XR CHEST 1 VIEW 2024-08-29 04:23:05 Ana María Gonzalez [facility] MAGNESIUM LEVEL 2024-08-29 03:27:00 Bridgette, Elke Memor ial [facility] PHOSPHORUS LEVEL 2024-08-29 03:27:00 Bridgette, [facility] COMPLETE BLOOD COUNT W/DIFF AND PLATELET 2024-08-29 03:27:00 Bridgette, [facility] CALCIUM LEVEL IONIZED WHOLE BLOOD 2024-08-29 03:27:00 Bridgette, [facility] PT AND PTT 2024-08-29 03:27:00 Anais L uis [facility] COMPLETE BLOOD COUNT 2024-08-29 03:27:00 Bridgette, [facility] AUTOMATED DIFFERENTIAL 2024-08-29 03:27:00 Bridgette, Carleen rivas [facility] BASIC METABOLIC PANEL 2024-08-29 03:27:00 Bridgette, [facility] POC GLUCOSE UNSOLICITED RESULTS 2024-08-29 00:32:00 Kaveh Ortega [facility] Blood Gas Mixed, Venous 2024-08-29 00:00:00 [facility] BLOOD GAS, ARTERIAL 2024-08-28 22:50:00 Dali rLori [facility] BLOOD GAS MIXED, VENOUS 2024-08-28 22:41:00 Fabricio Rob [facility] HEMOGLOBIN AND HEMATOCRIT 2024-08-28 22:28:00 Ec Fabricio triplett [facility] POC GLUCOSE UNSOLICITED RESULTS 2024-08-28 20:06:00 Kaveh Ortega [facility] TRANSTHORACIC ECHO (TTE) COMPLETE W/ CONTRAST 2024-08-28 16:45:00 Bridgette [facility] POC GLUCOSE UNSOLICITED RESULTS 2024-08-28 16:37:00 Shannon [facility] POC GLUCOSE UNSOLICITED RESULTS 2024-08-28 14:47:00 Elizabeth [facility] US CAROTID ARTERY DOPPLER BILATERAL 2024-08-28 13:20:00 Bridgette [facility] PREPARE RBC 2024-08-28 12:14:40 Rene Gilbert [facility] TRANSFUSE RED BLOOD CELLS 2024-08-28 12:12:00 Pramod Gilbert [facility] POC GLUCOSE UNSOLICITED RESULTS 2024-08-28 11:20:00 Shannon [facility] TRANSFUSE RED BLOOD CELLS 2024-08-28 08:41:00 Pramod Gilbert [facility] POC GLUCOSE UNSOLICITED RESULTS 2024-08-28 07:42:00 Shannon [facility] POC GLUCOSE UNSOLICITED RESULTS 2024-08-28 04:09:00 Shannon, [facility] POC GLUCOSE UNSOLICITED RESULTS 2024-08-28 03:45:00 Shannon [facility] MAGNESIUM LEVEL 2024-08-28 03:36:00 Ana María Gonzalez [facility] PHOSPHORUS LEVEL 2024-08-28 03:36:00 Fabricio Lucas [facility] COMPLETE BLOOD COUNT W/DIFF AND PLATELET 2024-08-28 03:36:00 Ana María Gonzalez [facility] BLOOD GAS MIXED, VENOUS 2024-08-28 03:36:00 Eche verkelly Fabricio [facility] CALCIUM LEVEL IONIZED WHOLE BLOOD 2024-08-28 03:36:00 Fabricio Lucas [facility] PT AND PTT 2024-08-28 03:36:00 Anais L uis [facility] COMPLETE BLOOD COUNT 2024-08-28 03:36:00 Ana María Gonzalez [facility] AUTOMATED DIFFERENTIAL 2024-08-28 03:36:00 Ana María Gonzalez [facility] BASIC METABOLIC PANEL 2024-08-28 03:36:00 Ana María Gonzalez [facility] LACTIC ACID LEVEL 2024-08-28 03:36:[address] [facility] XR CHEST 1 VIEW 2024-08-28 03:03:22 Ana María Gonzalez [facility] POC GLUCOSE UNSOLICITED RESULTS 2024-08-28 02:27:00 Shannon, [facility] POC GLUCOSE UNSOLICITED RESULTS 2024-08-28 01:18:00 Shannon [facility] POC GLUCOSE UNSOLICITED RESULTS 2024-08-28 00:06:00 Kaveh Ortega [facility] [place] Epic Lactic Acid Level 2024-08-28 00:00:00 Mem orial [place] Epic POC GLUCOSE UNSOLICITED RESULTS 2024-08-27 23:02:00 [facility] MAGNESIUM LEVEL 2024-08-27 22:14:00 GonzalezAna María [facility]orial [place] Epic PHOSPHORUS LEVEL 2024-08-27 22:14:00 GonzalezAna María [facility] [place] Epic POTASSIUM LEVEL 2024-08-27 22:14:00 GonzalezAna María [facility] [place] [facility] LACTIC ACID LEVEL 2024-08-27 22:14:00 Bridgette, [facility]ke [facility] orial [place] Epic POC GLUCOSE UNSOLICITED RESULTS 2024-08-27 21:19:00 [facility] POC GLUCOSE UNSOLICITED RESULTS 2024-08-27 19:18:00 [facility]h [facility] POC GLUCOSE UNSOLICITED RESULTS 2024-08-27 18:01:00 Shannon, [facility]h [facility] POC GLUCOSE UNSOLICITED RESULTS 2024-08-27 15:21:00 Kaveh Ortega [facility] [place] Epic MAGNESIUM LEVEL 2024-08-27 15:12:00 GonzalezAna María [facility] [place] [facility] PHOSPHORUS LEVEL 2024-08-27 15:12:00 Ana María [facility] POTASSIUM LEVEL 2024-08-27 15:12:00 Gonzalez Ana María [facility] [place] [facility] BASIC METABOLIC PANEL 2024-08-27 15:12:00 Echeve rriFabricio [facility] LACTIC ACID LEVEL 2024-08-27 15:12:00 Bridgette, [facility] orial [place] Epic POC GLUCOSE UNSOLICITED RESULTS 2024-08-27 13:41:00 Shannon, [facility]aveh [facility] POC GLUCOSE UNSOLICITED RESULTS 2024-08-27 12:39:00 Shannon, [facility]h [facility] POC GLUCOSE UNSOLICITED RESULTS 2024-08-27 10:49:00 Shannon, [facility] POC GLUCOSE UNSOLICITED RESULTS 2024-08-27 09:39:00 [facility] LACTIC ACID LEVEL 2024-08-27 09:39:[address] [facility] POC ARTERIAL EG7+ UNSOLICITED RESULTS 2024-08-27 07:38:00 [facility] BLOOD GAS, ARTERIAL 2024-08-27 07:29:00 Fabricio Ricardo i [facility] MAGNESIUM LEVEL 2024-08-27 07:24:00 Ana María Gonzalez [facility] PHOSPHORUS LEVEL 2024-08-27 07:24:00 Ana María Gonzalez [facility] POTASSIUM LEVEL 2024-08-27 07:24:00 Ana María Gonzalez [facility] POC GLUCOSE UNSOLICITED RESULTS 2024-08-27 07:07:00 Shannon [facility] XR CHEST 1 VIEW 2024-08-27 04:28:33 Ana María Gonzalez [facility] POC GLUCOSE UNSOLICITED RESULTS 2024-08-27 04:08:00 [facility] MAGNESIUM LEVEL 2024-08-27 03:28:00 Ana María Gonzalez [facility] PHOSPHORUS LEVEL 2024-08-27 03:28:00 Fabricio Lucas [facility] COMPLETE BLOOD COUNT W/DIFF AND PLATELET 2024-08-27 03:28:00 Ana María Gonzalez [facility] FIBRINOGEN 2024-08-27 03:28:00 Govind Lucass [facility] BLOOD GAS MIXED, VENOUS 2024-08-27 03:28:00 Eche verFabricio mendoza [facility] CALCIUM LEVEL IONIZED WHOLE BLOOD 2024-08-27 03:28:00 Fabricio Lucas [facility] PT AND PTT 2024-08-27 03:28:00 Govind Lucass [facility] COMPLETE BLOOD COUNT 2024-08-27 03:28:00 Ana María Gonzalez [facility] AUTOMATED DIFFERENTIAL 2024-08-27 03:28:00 Ana María Gonzalez [facility] BASIC METABOLIC PANEL 2024-08-27 03:28:00 Ana María Gonzalez [facility] LACTIC ACID LEVEL 2024-08-27 03:28:00 [facility] POC GLUCOSE UNSOLICITED RESULTS 2024-08-27 03:04:00 Elizabeth [facility] Epic POC GLUCOSE UNSOLICITED RESULTS 2024-08-27 02:02:00 [facility]SE UNSOLICITED RESULTS 2024-08-27 01:07:00 Demkaran, [facility] Epic LACTIC ACID LEVEL 2024-08-27 00:31:00 Daisy [facility] POC GLUCOSE UNSOLICITED RESULTS 2024-08-27 00:16:00 Daphneykaran, [facility] POC GLUCOSE UNSOLICITED RESULTS 2024-08-26 22:02:00 [facility] POC GLUCOSE UNSOLICITED RESULTS 2024-08-26 20:54:00 ShannonElizabethK[facility] MAGNESIUM LEVEL 2024-08-26 19:31:00 Ana María [facility] PHOSPHORUS LEVEL 2024-08-26 19:31:00 Ana María Gonzalez [facility] POTASSIUM LEVEL 2024-08-26 19:31:00 Ana María Gonzalez [facility] LACTIC ACID LEVEL 2024-08-26 19:31:00 [facility], ARTERIAL 2024-08-26 19:30:00 [facility] POC GLUCOSE UNSOLICITED RESULTS 2024-08-26 18:57:00 Shannon, [facility] EXTUBATION 2024-08-26 18:23:45 [facility]ci [facility] POC GLUCOSE UNSOLICITED RESULTS 2024-08-26 18:05:00 Shannon, [facility] POC GLUCOSE UNSOLICITED RESULTS 2024-08-26 17:18:00 Shannon, [facility] BLOOD GAS, ARTERIAL 2024-08-26 16:33:00 [facility] LACTIC ACID LEVEL 2024-08-26 16:33:00 YunierMarci bolivar Gul [facility] MAGNESIUM LEVEL 2024-08-26 16:30:00 Ana María Gonzalez [facility] PHOSPHORUS LEVEL 2024-08-26 16:30:00 Ana María Gonzalez [facility] POTASSIUM LEVEL 2024-08-26 16:30:00 Ana María Gonzalez [facility] COMPLETE BLOOD COUNT W/DIFF AND PLATELET 2024-08-26 16:30:00 Rene Gilbert [facility] FIBRINOGEN 2024-08-26 16:30:00 Govind Lucass Ezra [facility] CALCIUM LEVEL IONIZED WHOLE BLOOD 2024-08-26 16:30:00 Rene Gilbert [facility] COMPLETE BLOOD COUNT 2024-08-26 16:30:00 Rene Gilbert [facility] AUTOMATED DIFFERENTIAL 2024-08-26 16:30:00 Tae Gilbert on A [facility] BASIC METABOLIC PANEL 2024-08-26 16:30:00 Kaleb Gilbert [facility] POC GLUCOSE UNSOLICITED RESULTS 2024-08-26 16:00:00 Kaveh Ortega [facility] BLOOD GAS, ARTERIAL 2024-08-26 15:22:00 Rene Gilbert [facility] POC GLUCOSE UNSOLICITED RESULTS 2024-08-26 15:02:00 Kaveh Ortega [facility] POC GLUCOSE UNSOLICITED RESULTS 2024-08-26 13:58:00 Kaveh Ortega [facility] XR CHEST 1 V FOR PLACEMENT 2024-08-26 13:22:59 Rene Gilbert [facility] FIBRINOGEN 2024-08-26 13:18:00 Govind Lucass Ezra [facility] PT AND PTT 2024-08-26 13:18:00 [facility] 12-LEAD 2024-08-26 13:15:07 [facility]ene [facility] COMPLETE BLOOD COUNT W/DIFF AND PLATELET 2024-08-26 13:11:00 Rene Gilbert [facility] AUTOMATED DIFFERENTIAL 2024-08-26 13:11:00 Tae Gilbert on A [facility] COMPLETE BLOOD COUNT 2024-08-26 13:11:00 Rene Gilbert [facility] REFLEX MAN DIFF AND MORPH - DO NOT ORDER 2024-08-26 13:11:00 Rene Gilbert [facility] BLOOD GAS, ARTERIAL 2024-08-26 13:08:00 Rene Gilbert [facility] PREPARE RBC 2024-08-26 13:07:02 Rene Gilbert [facility] PHOSPHORUS LEVEL 2024-08-26 12:59:00 [facility]CI[facility] IONIZED WHOLE BLOOD 2024-08-26 12:59:00 Rene Gilbert [facility] COMPREHENSIVE METABOLIC PANEL 2024-08-26 12:59:00 Rene Gilbert [facility] LACTIC ACID LEVEL 2024-08-26 12:59:00 Rene Gilbert [facility] MAGNESIUM LEVEL 2024-08-26 12:59:00 Rene Gilbert Nj morial [facility] POC ARTERIAL BLOOD GAS AND BASIC PANEL UNSOLICITED RESULTS 2024-08-26 12:07:00 Fabricio Lucas [facility] POC ARTERIAL BLOOD GAS AND BASIC PANEL UNSOLICITED RESULTS 2024-08-26 11:42:00 Fabricio Lucas [facility] PLATELET COUNT 2024-08-26 11:28:00 [facility]24-08-26 11:28[facility]24-08-26 11:28:00 [facility] 2024-08-26 11:28:00 Govind Lucas [facility] POC ARTERIAL BLOOD GAS AND BASIC PANEL UNSOLICITED RESULTS 2024-08-26 11:13:00 Fabricio Lucas [facility] CABG (CORONARY ARTERY BYPASS GRAFT) 2024-08-26 11:00:00 Fabricoi Lucas [facility] SURGICAL PROCUREMENT, VEIN, ENDOSCOPIC, FOR CORONARY ARTERY BYPASS 2024-08-26 11:00:00 Fabricio Lucas [facility] POC VENOUS BLOOD GAS AND BASIC PANEL UNSOLICITED RESULTS 2024-08-26 10:48:00 Fabricio Lucas [facility] POC ARTERIAL BLOOD GAS AND BASIC PANEL UNSOLICITED RESULTS 2024-08-26 10:40:00 Fabricio Lucas [facility] SURGICAL PROCUREMENT, VEIN, ENDOSCOPIC, FOR CORONARY ARTERY BYPASS 2024-08-26 10:20:00 Fabricio Lucas [facility] CABG (CORONARY ARTERY BYPASS GRAFT) 2024-08-26 10:20:00 Fabricio Lucas [facility] SURGICAL PROCUREMENT, VEIN, ENDOSCOPIC, FOR CORONARY ARTERY BYPASS 2024-08-26 10:20:00 Fabricio Lucas [facility] CABG (CORONARY ARTERY BYPASS GRAFT) 2024-08-26 10:20:00 Fabricio Lucas [facility] POC ARTERIAL BLOOD GAS AND BASIC PANEL UNSOLICITED RESULTS 2024-08-26 10:15:00 Fabricio Lucas [facility] POC ARTERIAL BLOOD GAS AND BASIC PANEL UNSOLICITED RESULTS 2024-08-26 09:00:00 Fabricio Lucas [facility] AR CABG W/ARTERIAL GRAFT SINGLE ARTERIAL GRAFT 2024-08-26 07:52:00 Fabricio Lucas [facility] AR CABG W/ARTERIAL GRAFT THREE ARTERIAL GRAFTS 2024-08-26 07:52:00 Fabricio Lucas [facility] AR CORONARY ARTERY BYP W/VEIN & ARTERY GRAFT 2 VEIN 2024-08-26 07:52:00 Fabricio Lucas [facility] AR CORONARY ARTERY BYP W/VEIN & ARTERY GRAFT 3 VEIN 2024-08-26 07:52:00 Fabricio Lucas [facility] AR NDSC SURG W/VIDEO-ASSISTED HARVEST VEIN CABG 2024-08-26 07:52:00 Fabricio Lucas [facility] ECHOCARDIOGRAM, TRANSESOPHAGEAL 2024-08-26 07:52:00 Fabricio Lucas [facility] POC GLUCOSE UNSOLICITED RESULTS 2024-08-26 07:36:00 Fabricio Lucas [facility] Prepare platelet dose: 1 doses Transfusion indications: Hold for surgery 2024-08-26 00:00:00 [facility] Prepare Plasma: 1 Units Transfusion indications: Hold for surgery 2024-08-26 00:00:00 [facility] Prepare cryoprecipitate dose: 1 doses 2024-08-26 00:00:00 [facility] Magnesium Level 2024-08-26 00:00:00 Memor ial Arslan [facility] PT and PTT 2024-08-26 00:00:00 [facility] ECG 12-LEAD 2024-08-25 08:35:00 Rene Gilbert [facility] Pack Teeth operation 2021-09-02 06:00:00 [facility] Bone density scan 2021-05-29 06:00:00 [facility] kelley Mcdaniels Diabetic retinal eye exam 2021-04-10 05:00:00 [facility] PAP smear preparation 2021-03-29 05:00:00 [facility] [[facility]] CMP W/EGFR 2018-09-01 00:00:00 [place]] LIPID PANEL 2018-09-01 00:00:00 [place] [facility]] MICROALBUMIN, RANDOM URINE (W/CREATININE) 2018-09-01 00:00:00 [place] [facility] [[facility]] TSH, 3RD GENERATION 2018-09-01 00:00:00 [place] [facility] W[facility] POCT glucose meter docked device [facility] ECG 12 lead [facility] Blood Culture [facility] History of Cataract Surgery [place] [facility] History of [place] Surgery [place] Encounters Start Date/Time End Date/Time Encounter Type Admission Type Attending Clinicians Care Facility Care Department Encounter ID Source 2024-09-14 03:30:43 Emergency [facility] [id number] [facility] ent 2022-09-25 16:22:06 Outpatient [facility] [id number] [place] [facility] 2022-07-01 14:43:58 Outpatient [facility] [id number] [facility] 2020-11-03 04:20:52 Outpatient DEON JEREZ [facility] [id number] [facility] 2024-10-20 13:44:13 2024-10-20 13:44:[address] [facility] [id number] [facility] 2024-10-17 00:00:00 2024-10-17 16:31:47 Referral Triage Afua, Dheeraj Rockwellly, Dheeraj [facility] 1..840.114 350.1.13.70 8.2.7.2.686 [id number] [facility] 2024-10-07 09:15:00 2024-10-07 09:15:00 Outpatient SONIA RUTHERFORD [facility] [id number] [facility] 2024-09-20 19:43:00 2024-10-03 10:15:00 Inpatient Elective AL BRITTANI [facility] [id number] [facility] 2024-09-20 19:43:00 2024-10-03 10:15:00 Hospital Encounter Al Traci Brittani [facility] 1.2.840.114 350.1.13.70 8.2.7.2.686 [id number] [facility] 2024-09-26 15:06:39 2024-09-26 15:21:20 [facility] [id number] 2024-09-14 02:46:00 2024-09-20 18:00:00 Inpatient Emergency FREDY PAULINO [facility] General Medicine [id number] [facility] 2024-09-14 02:46:00 2024-09-20 18:00:00 Hospital Encounter Manuel Wiggins, Reuben Neff, Fredy Wetzel, Franklin Rivera [facility] 1..840.114 350.1.13.70 8.2.7.2.686 [id number] [facility] 2024-09-07 19:32:00 2024-09-14 02:33:00 Inpatient Elective AL BRITTANI [facility] [id number] [facility] 2024-09-07 19:32:00 2024-09-14 02:33:00 Hospital Encounter Al Brittani Mustafa [facility] 1.114 350.1.13.70 8.2.7.2.686 [id number] Memsarah Mcdaniels [facility] 2024-08-26 06:52:00 2024-09-07 18:44:00 [facility] [id number] [facility] 2024-08-26 06:52:00 2024-09-07 18:44:00 Hospital Encounter Fabricio Lucas, Kaveh Paulino, Fredy Ledezma, [facility] 1.114 350.1.13.70 8.2.7.2.686 [id number] [facility] 2024-09-01 00:00:00 2024-09-01 00:00:00 Outpatient KARIN SALDANA [facility] [id number] [facility] 2024-08-25 13:09:35 2024-08-25 23:59:00 Outpatient MHESW MHESW [id number] [facility] 2024-08-25 08:35:00 2024-08-25 23:59:00 Hospital Encounter [facility] 1.114 350.1.13.70 8.2.7.2.686 [id number] Memsarah aguayo [facility] 2024-08-25 07:20:57 2024-08-25 14:25:54 Outpatient Elective MHESW MH[facility]W [id number] [facility] 2024-08-25 09:04:43 2024-08-25 09:46:09 Outpatient Elective MHEOUT MHEOUT [id number] [facility] 2024-08-24 00:00:00 2024-08-24 15:59:21 Telephone Litzy Morris, [facility] 1.84.114 350.1.13.70 8.2.7.2.686 [id number] Memoria l [facility] 2024-08-24 00:00:00 2024-08-24 15:57:02 Telephone Fabricio Lucas [facility] 1.2.840.114 350.1.13.70 8.2.7.2.686 [id number] Lemuel aguayo [facility] 2024-05-10 15:28:20 2024-05-10 17:58:30 Outpatient Elective MHEOUT EOUT [id number] [facility] 2022-09-30 15:00:00 2022-09-30 15:00:00 Outpatient HALLEY OROZCO [facility] [id number] [facility] 2022-07-01 15:00:00 2022-07-01 15:49:15 Office Visit Halley Orozco [facility] 1.2.840.114 350.1.13.58 9.2.7.2.686 [id number] [facility] 2022-05-13 15:20:00 2022-05-13 15:20:00 Outpatient HALLEY OROZCO [facility] [id number] [facility] 2022-03-18 15:40:00 2022-03-18 16:48:01 Office Visit Halley Orozco [facility] 1.2.840.114 350.1.13.58 9.2.7.2.686 [id number] [facility] 2022-01-14 15:30:00 2022-01-14 16:14:44 Office Visit Halley Orozco [facility] 1.2.840.114 350.1.13.58 9.2.7.2.686 [id number] [facility] 2021-11-21 15:30:00 2021-11-21 16:31:30 Office Visit Halley Orozco [facility] 1.2.840.114 350.1.13.58 9.2.7.2.686 [id number] [facility] 2021-10-10 15:00:00 2021-10-10 16:44:16 Office Visit Halley Orozco [facility] 1.2.840.114 350.1.13.58 9.2.7.2.686 [id number] [facility] 2021-07-27 00:00:00 2021-07-27 00:00:00 Outpatient JARADVERONICA VIDALJanice SEE [id number] [facility] 2021-07-15 15:00:00 2021-07-15 15:00:00 Outpatient MANA SEE [id number] [facility] 2021-06-17 15:45:00 2021-06-17 15:45:00 Outpatient NICOLA PETESR [id number] [facility] 2021-06-10 16:00:00 2021-06-10 16:00:00 Outpatient MANA SEE [id number] [facility] 2021-04-18 15:20:00 2021-04-18 15:20:00 Outpatient MANA SEE [id number] [facility] 2021-04-18 15:00:00 2021-04-18 15:00:00 Outpatient MANA SEE [id number] [facility] 2021-04-18 14:20:00 2021-04-18 14:20:00 Outpatient NZO37-ADU MANA SEE [id number] [facility] 2021-04-18 13:37:33 2021-04-18 14:07:33 Office Visit Lawrence Bejarano [facility] 1.2.840.114 350.1.13.13 1.2.7.2.686 [id number] Mana Mindy 2020-10-02 15:00:00 2020-10-02 15:00:00 GUERO Thrasher M.D. SMITH, DEAN, M.D. [facility] [id number] [place] [facility] 2018-12-21 17:00:00 2018-12-21 17:00:00 Appointmen t; BREN MORALES M.D. NADER-EFTEK HARI, SHAHLA, M.D. [facility], [address] [id number] [place] [facility] 2018-10-23 15:48:00 2018-10-23 15:48:00 Emergency [facility] [address] [facility] 2018-09-01 08:00:00 2018-09-01 08:00:00 Appointmen t; BREN MORALES M.D. NADER-EFTEK HARI, SHAHLA, M.D. [facility], [address] [id number] [place] [facility] 2018-05-19 16:40:00 2018-05-19 16:40:00 Appointmen t; BREN MORALES M.D. NADER-EFTEK HARI, SHAHLA, M.D. [facility], [address] [id number] [place] [facility] 2018-03-25 15:00:00 2018-03-25 15:00:00 Appointmen t; SHARA ALEX, SHARA MIRELES, PATRICIA [facility], [address] [id number] [place] [facility] 2018-03-16 14:40:00 2018-03-16 14:40:00 Appointmen t; BREN MORALES M.D. NADER-EFTEK HARI, SHAHLA, M.D. [facility] [id number] [place] [facility] 2018-02-09 14:00:00 2018-02-09 14:00:00 Appointmen t; BREN MORALES M.D. NADER-EFTEK HARI, SHAHLA, M.D. [facility] [id number] [place] [facility] Results Test Description Test Time Test Comments Results Result Co mments Source [facility] EpicPOCT Blood [id number] 00:06:16* Test Item Value Reference Range Interpretation Comme nts External POC Glucose (test c ode = 2340-8) 181 mg/dL 70-99 A Lab Interpretation (test cod e = 72672-4) Abnormal [facility] Blood [id number] 16:30:00* Test Item Value Reference Range Interpretation Comme nts External POC Glucose (test c ode = 2340-8) Lab Interpretation (test cod e = 78473-7) Abnormal [facility] Blood Sufnsal9647-26-49 11:00:00* Test Item Value Reference Range Interpretation Comme nts External POC Glucose (test c ode = 2340-8) Lab Interpretation (test cod e = 51736-4) Abnormal [facility] Blood Qwptzup4382-40-38 07:00:00* Test Item Value Reference Range Interpretation Comme nts External POC Glucose (test c ode = 2340-8) Lab Interpretation (test cod e = 86970-0) Abnormal [facility] Blood Zbwollz6043-11-08 18:48:27* Test Item Value Reference Range Interpretation Comme nts External POC Glucose (test c ode = 2340-8) 177 mg/dL 70-99 A Lab Interpretation (test cod e = 77542-8) Abnormal [facility] Blood Krswvju0466-38-73 13:10:08* Test Item Value Reference Range Interpretation Comme nts External POC Glucose (test c ode = 2340-8) 170 mg/dL 70-99 A Lab Interpretation (test cod e = 63638-5) Abnormal [facility] Blood Yuhmiup9694-34-03 07:11:58* Test Item Value Reference Range Interpretation Comme nts External POC Glucose (test c ode = 2340-8) 81 mg/dL 70-99 [facility] Blood Ogahksv8750-18-39 22:54:43* Test Item Value Reference Range Interpretation Comme nts External POC Glucose (test c ode = 2340-8) 135 mg/dL 70-99 A Lab Interpretation (test cod e = 45500-1) Abnormal [facility] Blood Uxaxrzg9727-83-07 17:30:00* Test Item Value Reference Range Interpretation Comme nts External POC Glucose (test c ode = 2340-8) 98 mg/dL 70-99 [facility] Blood Jtyrjbf2906-44-82 13:06:29* Test Item Value Reference Range Interpretation Comme nts External POC Glucose (test c ode = 2340-8) 191 mg/dL 70-99 A Lab Interpretation (test cod e = 59064-3) Abnormal [facility] Blood Bcboxtl6650-54-14 08:00:55* Test Item Value Reference Range Interpretation Comme nts External POC Glucose (test c ode = 2340-8) 130 mg/dL 70-99 A Lab Interpretation (test cod e = 68141-6) Abnormal [facility] Blood Broovsv2711-78-99 21:00:00* Test Item Value Reference Range Interpretation Comme nts External POC Glucose (test c ode = 2340-8) [facility] Blood Tozxuql7865-79-15 18:48:39* Test Item Value Reference Range Interpretation Comme nts External POC Glucose (test c ode = 2340-8) 288 mg/dL 70-99 A Lab Interpretation (test cod e = 04856-3) Abnormal [facility] Blood Hnlwxop5856-02-79 16:01:41* Test Item Value Reference Range Interpretation Comme nts External POC Glucose (test c ode = 2340-8) 155 mg/dL 70-99 A Lab Interpretation (test cod e = 45242-6) Abnormal [facility] Blood Uwelypg3826-17-93 08:47:46* Test Item Value Reference Range Interpretation Comme nts External POC Glucose (test c ode = 2340-8) 170 mg/dL 70-99 A Lab Interpretation (test cod e = 77885-8) Abnormal [facility] Blood Knkltbk3091-44-77 22:25:36* Test Item Value Reference Range Interpretation Comme nts POC Glucose (test code = 2340-8) 280 mg/dL 70-99 A Lab Interpretation (test cod e = 32373-7) Abnormal [facility] Blood Bptkrua4957-24-96 22:55:34* Test Item Value Reference Range Interpretation Comme nts External POC Glucose (test c ode = 2340-8) 230 mg/dL 70-99 A Lab Interpretation (test cod e = 74030-0) Abnormal [facility] Blood Qlgwwqg0297-90-79 23:05:34* Test Item Value Reference Range Interpretation Comme nts External POC Glucose (test c ode = 2340-8) 188 mg/dL 70-99 A Lab Interpretation (test cod e = 35137-8) Abnormal [facility] Blood Rkcwrah1165-82-85 21:02:56* Test Item Value Reference Range Interpretation Comme nts External POC Glucose (test c ode = 2340-8) [facility] Blood Uliczjy9488-20-52 09:03:29* Test Item Value Reference Range Interpretation Comme nts External POC Glucose (test c ode = 2340-8) 172 mg/dL 70-99 A Lab Interpretation (test cod e = 13464-7) Abnormal [facility] Blood Leoffjh3755-41-82 09:03:45* Test Item Value Reference Range Interpretation Comme nts External POC Glucose (test c ode = 2340-8) 195 mg/dL 70-99 A Lab Interpretation (test cod e = 78473-3) Abnormal [facility] Blood Rbeqkkc1348-71-35 21:40:43* Test Item Value Reference Range Interpretation Comme nts External POC Glucose (test c ode = 2340-8) [facility] Blood Wsxcpqf9481-44-89 17:20:26* Test Item Value Reference Range Interpretation Comme nts External POC Glucose (test c ode = 2340-8) 232 mg/dL 70-99 A Lab Interpretation (test cod e = 48265-0) Abnormal [facility] Blood Jynljdk6924-11-80 13:02:03* Test Item Value Reference Range Interpretation Comme nts External POC Glucose (test c ode = 2340-8) 223 mg/dL 70-99 A Lab Interpretation (test cod e = 68461-4) Abnormal [facility] Blood Czymmir5680-34-92 07:41:52* Test Item Value Reference Range Interpretation Comme nts External POC Glucose (test c ode = 2340-8) 102 mg/dL 70-99 A Lab Interpretation (test cod e = 59405-1) Abnormal [facility] Blood Vdsnand0410-32-04 00:48:58* Test Item Value Reference Range Interpretation Comme nts External POC Glucose (test c ode = 2340-8) 164 mg/dL 70-99 A Lab Interpretation (test cod e = 79494-3) Abnormal [facility] Blood Mupuacl1559-10-04 16:47:29* Test Item Value Reference Range Interpretation Comme nts External POC Glucose (test c ode = 2340-8) 195 mg/dL 70-99 A Lab Interpretation (test cod e = 28442-0) Abnormal [facility] Blood Wbiinqz6033-99-67 13:33:14* Test Item Value Reference Range Interpretation Comme nts External POC Glucose (test c ode = 2340-8) 230 mg/dL 70-99 A Lab Interpretation (test cod e = 20585-9) Abnormal [facility] Blood Yyvctyd8040-40-89 08:16:33* Test Item Value Reference Range Interpretation Comme nts External POC Glucose (test c ode = 2340-8) 159 mg/dL 70-99 A Lab Interpretation (test cod e = 40090-0) Abnormal [facility] Blood Qvxlfny4863-92-02 00:43:02* Test Item Value Reference Range Interpretation Comme nts External POC Glucose (test c ode = 2340-8) 187 mg/dL 70-99 A Lab Interpretation (test cod e = 16880-0) Abnormal [facility] Blood Dnafjww9863-24-95 22:55:38* Test Item Value Reference Range Interpretation Comme nts POC Glucose (test code = 2340-8) 129 mg/dL 70-99 A Lab Interpretation (test cod e = 28437-7) Abnormal [facility] Nupkvuf5314-09-18 16:05:34* Test Item Value Reference Range Interpretation Comme nts POC Glu (test code = 5670288032) 215 mg/dL 70-99 H POC Glu Comment 1 (test code = 9362042405) Notified RN/MD POC Performing Location (genoveva t code = 3726670381) [facility] Lab Interpretation (test cod e = 01937-3) Abnormal [facility] Inlpheg5998-93-10 12:16:27* Test Item Value Reference Range Interpretation Comme nts POC Glu (test code = 5096646232) 168 mg/dL 70-99 H POC Glu Comment 1 (test code = 8627805020) Notified RN/MD POC Performing Location (genoveva t code = 1781890930) [facility] Lab Interpretation (test cod e = 71698-2) Abnormal [facility] Itytozg5787-04-86 05:38:35* Test Item Value Reference Range Interpretation Comme nts POC Glu (test code = 0584430977) 86 mg/dL 70-99 POC Performing Location (genoveva t code = 3450027781) [facility] Eapkxvt3483-81-38 01:14:17* Test Item Value Reference Range Interpretation Comme nts POC Glu (test code = 7341948139) 174 mg/dL 70-99 H POC Performing Location (genoveva t code = 6880974605) [facility] Lab Interpretation (test cod e = 80590-1) Abnormal [facility] Kqpnobh1899-51-46 21:48:55* Test Item Value Reference Range Interpretation Comme nts POC Glu (test code = 6517037172) 225 mg/dL 70-99 H POC Performing Location (genoveva t code = 9450726648) [facility] Lab Interpretation (test cod e = 37962-6) Abnormal [facility]2025-03-24 15:57:51* Test Item Value Reference Range Interpretation Comme nts POC Glu (test code = 1253114962) 272 mg/dL 70-99 H POC Glu Comment 1 (test code = 7933494134) Notified RN/MD POC Performing Location (genoveva t code = 6119287357) [facility] Lab Interpretation (test cod e = 87105-7) Abnormal [facility] Pgpfjbh6600-13-12 11:59:58* Test Item Value Reference Range Interpretation Comme nts POC Glu (test code = 0864743746) 223 mg/dL 70-99 H POC Glu Comment 1 (test code = 0528251683) Notified RN/MD POC Performing Location (genoveva t code = 3394466895) [facility] Lab Interpretation (test cod e = 56712-9) Abnormal [facility] Rddruxe0079-37-76 06:31:37* Test Item Value Reference Range Interpretation Comme nts POC Glu (test code = 9858429176) 175 mg/dL 70-99 H POC Glu Comment 1 (test code = 8498525138) Notified RN/MD POC Performing Location (genoveva t code = 7131027619) [facility] Lab Interpretation (test cod e = 20430-2) Abnormal [facility] Shcxmtd1717-53-91 22:32:47* Test Item Value Reference Range Interpretation Comme nts POC Glu (test code = 2893287711) 156 mg/dL 70-99 H POC Performing Location (genoveva t code = 5285862797) [facility] Lab Interpretation (test cod e = 48378-7) Abnormal [facility] Qetoecx8003-17-36 20:32:07* Test Item Value Reference Range Interpretation Comme nts POC Glu (test code = 7723637413) 112 mg/dL 70-99 H POC Performing Location (genoveva t code = 9368455954) [facility] Lab Interpretation (test cod e = 41330-3) Abnormal [facility] Yqoqpxb6178-09-02 16:09:09* Test Item Value Reference Range Interpretation Comme nts POC Glu (test code = 0798757156) 209 mg/dL 70-99 H POC Glu Comment 1 (test code = 9044361740) Notified RN/MD POC Performing Location (genoveva t code = 1878421676) [facility] Lab Interpretation (test cod e = 17764-7) Abnormal [facility] Kncbvsg0168-15-11 12:04:50* Test Item Value Reference Range Interpretation Comme nts POC Glu (test code = 3513774272) 197 mg/dL 70-99 H POC Glu Comment 1 (test code = 6330207537) Notified RN/MD POC Performing Location (genoveva t code = 9792961367) [facility] Lab Interpretation (test cod e = 01717-1) Abnormal [facility] Iumvtpc0664-66-03 06:50:43* Test Item Value Reference Range Interpretation Comme nts POC Glu (test code = 2482850119) 94 mg/dL 70-99 POC Performing Location (genoveva t code = 5244950574) [facility] Mksmmju0247-19-04 20:13:10* Test Item Value Reference Range Interpretation Comme nts POC Glu (test code = 4120757027) 214 mg/dL 70-99 H POC Performing Location (genoveva t code = 3828515358) [facility] Lab Interpretation (test cod e = 86451-1) Abnormal [facility] Myvsftm5572-49-27 16:08:20* Test Item Value Reference Range Interpretation Comme nts POC Glu (test code = 8836961118) 323 mg/dL 70-99 H POC Glu Comment 1 (test code = 0978699603) Notified RN/MD POC Performing Location (genoveva t code = 4069515008) [facility] Lab Interpretation (test cod e = 08858-5) Abnormal [facility] Afujivg6383-02-18 12:08:45* Test Item Value Reference Range Interpretation Comme nts POC Glu (test code = 9616211270) 259 mg/dL 70-99 H POC Glu Comment 1 (test code = 8956394154) Notified RN/MD POC Performing Location (genoveva t code = 4784540125) [facility] Lab Interpretation (test cod e = 82988-2) Abnormal [facility]2025-03-22 10:00:24* Test Item Value Reference Range Interpretation Comme nts POC Glu (test code = 1637882499) 230 mg/dL 70-99 H POC Performing Location (genoveva t code = 1383144201) [facility] Lab Interpretation (test cod e = 78929-8) Abnormal [facility] Xhghjji7690-65-65 07:14:48* Test Item Value Reference Range Interpretation Comme nts POC Glu (test code = 2801280676) 121 mg/dL 70-99 H POC Performing Location (genoveva t code = 5441916929) [facility] Lab Interpretation (test cod e = 14233-6) Abnormal [facility] Uctudlv0542-53-56 06:43:18* Test Item Value Reference Range Interpretation Comme nts POC Glu (test code = 3622347434) 53 mg/dL 70-99 L POC Performing Location (genoveva t code = 0250646639) [facility] Lab Interpretation (test cod e = 35758-4) Abnormal [facility] Xpkokvv4768-69-59 16:38:54* Test Item Value Reference Range Interpretation Comme nts POC Glu (test code = 7725753642) 283 mg/dL 70-99 H POC Glu Comment 1 (test code = 8755048950) Notified RN/MD POC Performing Location (genoveva t code = 9945817990) [facility] Lab Interpretation (test cod e = 71496-6) Abnormal [facility] Nevtwjm2084-89-53 12:41:16* Test Item Value Reference Range Interpretation Comme nts POC Glu (test code = 8727531523) 298 mg/dL 70-99 H POC Glu Comment 1 (test code = 7650718864) Notified RN/MD POC Performing Location (genoveva t code = 5955322001) [facility] Lab Interpretation (test cod e = 53290-3) Abnormal [facility] Bdoivpk3968-59-75 10:05:14* Test Item Value Reference Range Interpretation Comme nts POC Glu (test code = 6467028486) 200 mg/dL 70-99 H POC Glu Comment 1 (test code = 5354512629) Notified RN/MD POC Performing Location (genoveva t code = 3156634414) [facility] Lab Interpretation (test cod e = 90398-0) Abnormal [facility] Btirgmp1860-08-60 01:22:49* Test Item Value Reference Range Interpretation Comme nts POC Glu (test code = 6400768444) 160 mg/dL 70-99 H POC Glu Comment 1 (test code = 0258567335) Notified RN/MD POC Performing Location (genoveva t code = 2619372910) [facility] Lab Interpretation (test cod e = 99535-4) Abnormal [facility] Ngisjrb4831-20-13 20:54:46* Test Item Value Reference Range Interpretation Comme nts POC Glu (test code = 6647615002) 237 mg/dL 70-99 H POC Glu Comment 1 (test code = 9106245942) Notified RN/MD POC Performing Location (genoveva t code = 1001568683) [facility] Lab Interpretation (test cod e = 87374-4) Abnormal [facility] Luumfir5146-65-72 16:40:18* Test Item Value Reference Range Interpretation Comme nts POC Glu (test code = 5124068850) 294 mg/dL 70-99 H POC Glu Comment 1 (test code = 6735264085) Notified RN/MD POC Performing Location (genoveva t code = 6287628066) [facility] Lab Interpretation (test cod e = 57589-8) Abnormal [facility] Zavgfhj7281-19-88 11:44:11* Test Item Value Reference Range Interpretation Comme nts POC Glu (test code = 5972187210) 367 mg/dL 70-99 H POC Glu Comment 1 (test code = 1536058330) Notified RN/MD POC Performing Location (genoveva t code = 6640880779) [facility] Lab Interpretation (test cod e = 64827-0) Abnormal [facility] Argwzww4896-34-11 06:31:38* Test Item Value Reference Range Interpretation Comme nts POC Glu (test code = 8984143813) 232 mg/dL 70-99 H POC Performing Location (genoveva t code = 3478809640) [facility] Lab Interpretation (test cod e = 21411-5) Abnormal [facility] Lymtqjg4311-18-03 20:55:18* Test Item Value Reference Range Interpretation Comme nts POC Glu (test code = 8491750281) 292 mg/dL 70-99 H POC Performing Location (genoveva t code = 5427240896) [facility] Lab Interpretation (test cod e = 70591-4) Abnormal [facility] Poamtbj2714-08-89 16:18:52* Test Item Value Reference Range Interpretation Comme nts POC Glu (test code = 1837324468) 277 mg/dL 70-99 H POC Glu Comment 1 (test code = 5263421692) Notified RN/MD POC Performing Location (genoveva t code = 3529936127) [facility] Lab Interpretation (test cod e = 73468-9) Abnormal [facility] Lcfzxcx2250-13-34 13:05:47* Test Item Value Reference Range Interpretation Comme nts POC Glu (test code = 1158288725) 229 mg/dL 70-99 H POC Glu Comment 1 (test code = 6433803956) Notified RN/MD POC Performing Location (genoveva t code = 5989726975) [facility] Lab Interpretation (test cod e = 33024-8) Abnormal [facility] 12 gyvb7123-90-80 07:42:23* Test Item Value Reference Range Interpretation Comme nts Ventricular Rate (test code = 5935948111) BPM Atrial Rate (test code = 8756267739) BPM AR Interval (test code = 1990684701) 138 ms QRS Duration (test code = 2149465581) 92 ms QT/QTc (test code = 9876640468) 360 ms QTc Calculation (test code = 0261004212) 466 ms P-[place] (test code = 1389225636) degrees R-[place] (test code = 6043835388) degrees T-[place] (test code = 3481348544) degrees IMP (test code = IMP) PXN (test code = PXN) [facility] Blood Glfmgcm3498-63-88 21:29:35* Test Item Value Reference Range Interpretation Comme nts Lab Interpretation (test cod e = 25381-3) Normal [facility] Blood Qeksdzf0159-70-51 17:38:04* Test Item Value Reference Range Interpretation Comme nts External POC Glucose (test c ode = 2340-8) 243 mg/dL 70-99 A Lab Interpretation (test cod e = 68760-1) Abnormal [facility] Blood Vduzinn7454-82-67 11:24:14* Test Item Value Reference Range Interpretation Comme nts External POC Glucose (test c ode = 2340-8) 315 mg/dL 70-99 A Lab Interpretation (test cod e = 84649-4) Abnormal [facility] Blood Bdzsoyj7692-84-55 07:25:33* Test Item Value Reference Range Interpretation Comme nts External POC Glucose (test c ode = 2340-8) 214 mg/dL 70-99 A Lab Interpretation (test cod e = 91687-1) Abnormal [facility] Blood Lykmdef0961-99-81 20:57:16* Test Item Value Reference Range Interpretation Comme nts POC Glucose (test code = 2340-8) 106 mg/dL 70-99 A Lab Interpretation (test cod e = 70668-2) Abnormal [facility] Blood Ycrssjv7811-14-39 17:06:17* Test Item Value Reference Range Interpretation Comme nts External POC Glucose (test c ode = 2340-8) 195 mg/dL 70-99 A Lab Interpretation (test cod e = 80909-2) Abnormal [facility] Blood Kywvxwb8428-54-75 11:33:23* Test Item Value Reference Range Interpretation Comme nts External POC Glucose (test c ode = 2340-8) 274 mg/dL 70-99 A Lab Interpretation (test cod e = 31025-1) Abnormal [facility] Blood Fjrxijr1350-61-04 07:17:24* Test Item Value Reference Range Interpretation Comme nts External POC Glucose (test c ode = 2340-8) 230 mg/dL 70-99 A Lab Interpretation (test cod e = 19476-8) Abnormal [facility] Blood Jsjvlmm6561-27-54 21:58:47* Test Item Value Reference Range Interpretation Comme nts Lab Interpretation (test cod e = 55799-4) Normal [facility] Blood Ckyemtu8961-27-90 17:00:58* Test Item Value Reference Range Interpretation Comme nts External POC Glucose (test c ode = 2340-8) 341 mg/dL 70-99 A Lab Interpretation (test cod e = 06109-0) Abnormal [facility] Blood Rnpvkqo5367-13-83 11:24:59* Test Item Value Reference Range Interpretation Comme nts External POC Glucose (test c ode = 2340-8) 330 mg/dL 70-99 A Lab Interpretation (test cod e = 83893-0) Abnormal [facility] Blood Hhexgjj7983-30-58 07:20:47* Test Item Value Reference Range Interpretation Comme nts External POC Glucose (test c ode = 2340-8) 243 mg/dL 70-99 A Lab Interpretation (test cod e = 27447-8) Abnormal [facility] Blood Xhrepon7331-32-73 20:38:51* Test Item Value Reference Range Interpretation Comme nts POC Glucose (test code = 2340-8) 276 mg/dL 70-99 A Lab Interpretation (test cod e = 53108-6) Abnormal [facility] Blood Yalxfqz7768-76-06 16:30:00* Test Item Value Reference Range Interpretation Comme nts External POC Glucose (test c ode = 2340-8) Lab Interpretation (test cod e = 44093-6) Abnormal [facility] Blood Kutxnev5884-07-91 13:00:00* Test Item Value Reference Range Interpretation Comme nts External POC Glucose (test c ode = 2340-8) Lab Interpretation (test cod e = 55417-3) Abnormal [facility] Blood Dyqxxvq4902-15-08 07:00:00* Test Item Value Reference Range Interpretation Comme nts External POC Glucose (test c ode = 2340-8) Lab Interpretation (test cod e = 52816-4) Normal [facility] Quedvgi0525-87-90 16:01:52* Test Item Value Reference Range Interpretation Comme nts POC Glu (test code = 1751646532) 224 mg/dL 70-99 H POC Glu Comment 1 (test code = 9329708600) Notified RN/MD POC Performing Location (genoveva t code = 1323900685) [facility] Lab Interpretation (test cod e = 15087-1) Abnormal [facility] Xzjsoeh8805-11-95 12:19:07* Test Item Value Reference Range Interpretation Comme nts POC Glu (test code = 5836507615) 269 mg/dL 70-99 H POC Glu Comment 1 (test code = 5339562799) Notified RN/MD POC Performing Location (genoveva t code = 1604258235) [facility] Lab Interpretation (test cod e = 74900-7) Abnormal [facility] Wysparm2789-53-15 08:38:47* Test Item Value Reference Range Interpretation Comme nts POC Glu (test code = 6029743662) 191 mg/dL 70-99 H POC Glu Comment 1 (test code = 7161550918) Notified RN/MD POC Performing Location (genoveva t code = 9781341662) [facility] Lab Interpretation (test cod e = 77696-1) Abnormal [facility] Yoqflwa6844-21-50 15:47:41* Test Item Value Reference Range Interpretation Comme nts POC Glu (test code = 2982571811) 328 mg/dL 70-99 H POC Glu Comment 1 (test code = 4167417233) Notified RN/MD POC Performing Location (genoveva t code = 6044216796) [facility] Lab Interpretation (test cod e = 83595-5) Abnormal [facility] RBC: 2 Jgpap2245-50-70 13:41:08* Test Item Value Reference Range Interpretation Comme nts Product Code (test code = 25) [id number] Unit Number (test code = 1624) [id number] Unit ABO (test code = 0749918) O Unit RH (test code = 5467401) POS Crossmatch (test code = 4252192) Compatible Dispense Status (test code = 1623) Transfused Blood Expiration Date (test code = 530) Product Blood Type (test cod e = 532) Unit Volume (test code = 1322-7) 300 mL [facility]2025-03-11 11:54:30* Test Item Value Reference Range Interpretation Comme nts POC Glu (test code = 2833529554) 265 mg/dL 70-99 H POC Glu Comment 1 (test code = 1588419352) Notified RN/MD POC Performing Location (genoveva t code = 7586125734) [facility] Lab Interpretation (test cod e = 25891-0) Abnormal [facility]2025-03-11 06:49:03* Test Item Value Reference Range Interpretation Comme nts POC Glu (test code = 3826031731) 198 mg/dL 70-99 H POC Glu Comment 1 (test code = 5264710035) Notified RN/MD POC Performing Location (genoveva t code = 9468503200) [facility] Lab Interpretation (test cod e = 75422-7) Abnormal [facility] Axddsqm8245-10-45 16:07:21* Test Item Value Reference Range Interpretation Comme nts POC Glu (test code = 9024845287) 253 mg/dL 70-99 H POC Glu Comment 1 (test code = 0196523628) Notified RN/MD POC Performing Location (genoveva t code = 6414193426) [facility] Lab Interpretation (test cod e = 16327-9) Abnormal [facility] Fipxuys8083-07-00 12:06:07* Test Item Value Reference Range Interpretation Comme nts POC Glu (test code = 7577444032) 127 mg/dL 70-99 H POC Glu Comment 1 (test code = 0900442300) Notified RN/MD POC Glu Comment 2 (test code = 7715051423) Cleaned Meter POC Performing Location (genoveva t code = 1166000073) [facility] Lab Interpretation (test cod e = 23181-7) Abnormal [facility] Vkzkaeq6545-14-32 05:46:35* Test Item Value Reference Range Interpretation Comme nts POC Glu (test code = 6482683982) 105 mg/dL 70-99 H POC Glu Comment 1 (test code = 3808725419) Notified RN/MD POC Glu Comment 2 (test code = 5841412273) Cleaned Meter POC Performing Location (genoveva t code = 7393616018) [facility] Lab Interpretation (test cod e = 43198-4) Abnormal [facility] RBC: 1 Fdjji6698-92-18 22:19:06* Test Item Value Reference Range Interpretation Comme nts Product Code (test code = 25) [id number] Unit Number (test code = 1624) [id number] Unit ABO (test code = 2543537) O Unit RH (test code = 0555412) NEG Crossmatch (test code = 8695381) Compatible Dispense Status (test code = 1623) Transfused Blood Expiration Date (test code = 530) Product Blood Type (test cod e = 532) Unit Volume (test code = 1322-7) 300 mL [facility] Qclzich4901-60-88 16:03:43* Test Item Value Reference Range Interpretation Comme [facility] POC Glu (test code = 0965981150) 253 mg/dL 70-99 H POC Glu Comment 1 (test code = 9499856993) Notified RN/MD POC Performing Location (genoveva t code = 6724756541) [facility] Lab Interpretation (test cod e = 11953-3) Abnormal [facility] Wyrqahy3421-56-24 11:57:32* Test Item Value Reference Range Interpretation Comme nts POC Glu (test code = 4015787695) 231 mg/dL 70-99 H POC Glu Comment 1 (test code = 1932062452) Notified RN/MD POC Performing Location (genoveva t code = 3600648767) [facility] Lab Interpretation (test cod e = 08291-2) Abnormal [facility] Tptbnwd5879-54-70 06:19:28* Test Item Value Reference Range Interpretation Comme nts POC Glu (test code = 9309560628) 163 mg/dL 70-99 H POC Glu Comment 1 (test code = 9799131565) Notified RN/MD POC Performing Location (genoveva t code = 5659610133) [facility] Lab Interpretation (test cod e = 49624-9) Abnormal [facility] Htpgpax9882-74-14 15:45:03* Test Item Value Reference Range Interpretation Comme nts POC Glu (test code = 0280927529) 175 mg/dL 70-99 H POC Glu Comment 1 (test code = 1816619047) Notified RN/MD POC Performing Location (genoveva t code = 2940323532) [facility] Lab Interpretation (test cod e = 56160-7) Abnormal [facility] Ydgsipm2944-81-56 12:01:33* Test Item Value Reference Range Interpretation Comme nts POC Glu (test code = 4836912992) 157 mg/dL 70-99 H POC Glu Comment 1 (test code = 1539371866) Notified RN/MD POC Performing Location (genoveva t code = 3401106231) [facility] Lab Interpretation (test cod e = 98531-9) Abnormal [facility] Yqzgpdm0973-50-59 06:47:56* Test Item Value Reference Range Interpretation Comme nts POC Glu (test code = 2523434095) 131 mg/dL 70-99 H POC Glu Comment 1 (test code = 3298050681) Notified RN/MD POC Performing Location (genoveva t code = 3365752237) [facility] Lab Interpretation (test cod e = 64670-7) Abnormal [facility] Myojkuz3035-38-59 23:47:16* Test Item Value Reference Range Interpretation Comme nts POC Glu (test code = 2120915710) 135 mg/dL 70-99 H POC Performing Location (genoveva t code = 2822247020) [facility] Lab Interpretation (test cod e = 84111-1) Abnormal [facility] Tlrcalc1702-92-58 17:00:32* Test Item Value Reference Range Interpretation Comme nts POC Glu (test code = 7318023922) 97 mg/dL 70-99 POC Glu Comment 1 (test code = 4499894907) Notified RN/MD POC Glu Comment 2 (test code = 9586845221) Cleaned Meter POC Performing Location (genoveva t code = 3012736561) [facility] Pygqtxn6309-41-91 13:05:42* Test Item Value Reference Range Interpretation Comme nts POC Glu (test code = 9153803071) 237 mg/dL 70-99 H POC Glu Comment 1 (test code = 8931990522) Notified RN/MD POC Performing Location (genoveva t code = 6069215832) [facility] Lab Interpretation (test cod e = 62615-8) Abnormal [facility] Bsrddsu3561-18-68 07:12:12* Test Item Value Reference Range Interpretation Comme nts POC Glu (test code = 5499830236) 79 mg/dL 70-99 POC Performing Location (genoveva t code = 9824490386) [facility] Ifonodl6519-10-31 17:05:38* Test Item Value Reference Range Interpretation Comme nts POC Glu (test code = 5883571536) 119 mg/dL 70-99 H POC Glu Comment 1 (test code = 0333953430) Notified RN/MD POC Performing Location (genoveva t code = 8020540648) CV ICU Lab Interpretation (test cod e = 60083-3) Abnormal [facility] Velnrlx2489-70-70 12:09:33* Test Item Value Reference Range Interpretation Comme nts POC Glu (test code = 9145606024) 173 mg/dL 70-99 H POC Glu Comment 1 (test code = 7239036117) Notified RN/MD POC Performing Location (genoveva t code = 8655343213) CV ICU Lab Interpretation (test cod e = 10022-2) Abnormal [facility] Pcmtkde7171-82-85 08:16:14* Test Item Value Reference Range Interpretation Comme nts POC Glu (test code = 4339074208) 103 mg/dL 70-99 H POC Glu Comment 1 (test code = 1653340645) Notified RN/MD POC Performing Location (genoveva t code = 9070110724) CV ICU Lab Interpretation (test cod e = 29087-4) Abnormal [facility] Zwsdsxz4516-83-83 03:25:45* Test Item Value Reference Range Interpretation Comme nts POC Glu (test code = 5033558687) 103 mg/dL 70-99 H POC Glu Comment 1 (test code = 5005067955) Cleaned Meter POC Performing Location (genoveva t code = 5997926255) CV ICU Lab Interpretation (test cod e = 39008-5) Abnormal [facility] Hrrvhcn0363-98-08 03:07:36* Test Item Value Reference Range Interpretation Comme nts POC Glu (test code = 9487311359) 55 mg/dL 70-99 L POC Glu Comment 1 (test code = 8654597908) Notified RN/MD POC Glu Comment 2 (test code = 7917118972) Cleaned Meter POC Performing Location (genoveva t code = 6042642484) CV ICU Lab Interpretation (test cod e = 00069-3) Abnormal [facility] Wighkqr3937-68-83 00:06:14* Test Item Value Reference Range Interpretation Comme nts POC Glu (test code = 8181535386) 73 mg/dL 70-99 POC Glu Comment 1 (test code = 3537524593) Notified RN/MD POC Glu Comment 2 (test code = 9383239821) Cleaned Meter POC Performing Location (genoveva t code = 5496280300) CV ICU [facility] Ephcwqc4899-20-35 20:03:45* Test Item Value Reference Range Interpretation Comme nts POC Glu (test code = 8641402700) 182 mg/dL 70-99 H POC Glu Comment 1 (test code = 1694292188) Notified RN/MD POC Glu Comment 2 (test code = 3191460467) Cleaned Meter POC Performing Location (genoveva t code = 3057512906) CV ICU Lab Interpretation (test cod e = 82845-9) Abnormal [facility] Ziidbwx7627-95-81 17:15:02* Test Item Value Reference Range Interpretation Comme nts POC Glu (test code = 9300066873) 202 mg/dL 70-99 H POC Glu Comment 1 (test code = 5181359846) Notified RN/MD POC Performing Location (genoveva t code = 9855464047) CV ICU Lab Interpretation (test cod e = 55320-8) Abnormal [facility] Vskzmpv8944-48-81 11:58:38* Test Item Value Reference Range Interpretation Comme nts POC Glu (test code = 5341379328) 130 mg/dL 70-99 H POC Glu Comment 1 (test code = 1382970223) Notified RN/MD POC Performing Location (genoveva t code = 7652666745) CV ICU Lab Interpretation (test cod e = 99618-4) Abnormal [facility] Mvwxqcn5945-08-68 08:12:10* Test Item Value Reference Range Interpretation Comme nts POC Glu (test code = 5351447821) 104 mg/dL 70-99 H POC Glu Comment 1 (test code = 4589691589) Notified RN/MD POC Performing Location (genoveva t code = 8217110666) CV ICU Lab Interpretation (test cod e = 26312-1) Abnormal [facility] Pzigphm0220-21-63 03:36:08* Test Item Value Reference Range Interpretation Comme nts POC Glu (test code = 5469168833) 112 mg/dL 70-99 H POC Performing Location (genoveva t code = 9089752870) CV ICU Lab Interpretation (test cod e = 43996-0) Abnormal [facility] Aojkbgn0928-85-63 22:11:33* Test Item Value Reference Range Interpretation Comme nts POC Glu (test code = 7025192442) 159 mg/dL 70-99 H POC Glu Comment 1 (test code = 8375779812) Notified RN/MD POC Glu Comment 2 (test code = 2817640253) Cleaned Meter POC Performing Location (genoveva t code = 3541277020) CV ICU Lab Interpretation (test cod e = 29263-3) Abnormal [facility] Intaljv2347-49-12 17:04:30* Test Item Value Reference Range Interpretation Comme nts POC Glu (test code = 5186932935) 155 mg/dL 70-99 H POC Glu Comment 1 (test code = 2769059186) Notified RN/MD POC Performing Location (genovvea t code = 2687010024) CV ICU Lab Interpretation (test cod e = 71469-0) Abnormal [facility] Nhaqmkh4093-80-80 11:52:04* Test Item Value Reference Range Interpretation Comme nts POC Glu (test code = 7415827083) 166 mg/dL 70-99 H POC Glu Comment 1 (test code = 4113258856) Notified RN/MD POC Performing Location (genoveva t code = 6171985406) CV ICU Lab Interpretation (test cod e = 99059-3) Abnormal [facility] Jgcrtcm1380-48-34 07:50:37* Test Item Value Reference Range Interpretation Comme nts POC Glu (test code = 6928568598) 98 mg/dL 70-99 POC Glu Comment 1 (test code = 4304181588) Notified RN/MD POC Performing Location (genoveva t code = 3322931571) CV ICU [facility] Gypjqjf3980-81-30 00:20:07* Test Item Value Reference Range Interpretation Comme nts POC Glu (test code = 4676639145) 122 mg/dL 70-99 H POC Glu Comment 1 (test code = 0913981698) Notified RN/MD POC Glu Comment 2 (test code = 8278969255) Cleaned Meter POC Performing Location (genoveva t code = 1777210920) CV ICU Lab Interpretation (test cod e = 01050-9) [facility] ecfesnzh1114-36-18 23:44:34* Test Item Value Reference Range Interpretation Comme nts LA Vol I (A4C) BSA (test code = 9491238100) 19.1 ml/m2 LA Vol I BSA (test code = 0029607158) 17.4 ml/m2 LVOT Vmax/AV Vmax (test code = 4689826255) 0.67 {ratio} Ao Root diam diastole (test code = 7395841865) 25 mm LVOT Vmean (test code = 6239464323) 0.68 m/s LV SV (A4C) (test code = 9801125256) 52.5 ml LV SI (A4C) (test code = 6734780026) 26.9 ml/m2 LVLs (A4C) (test code = 0546200707) 69.2 mm LVLd (A4C) (test code = 0967542012) 82.4 mm LV EDV A4C (test code = 2500982082) 118 mL LA area A4C (test code = 9842133841) 15.1 cm2 LA area A2C (test code = 8285651940) 14.2 cm2 LV ESV A4C (test code = 7397722767) 65.4 mL MV max berta (test code = 5101149143) 1.63 cm/s TR pk grad (test code = 7504127431) mmHg LA ESV A2C (test code = 3545846781) 34 mL LA ESV A4C (test code = 5834015004) 34 mL MV mn berta (test code = 7293861162) 0.856 m/s LV est EF (test code = 5340468927) 41 % LA vol index (test code = 8704881632) 18.5 mL/m2 MV A pk berta (test code = 8834420419) 0.83 m/s MV PHT (test code = 3729752938) 126 ms MV VTI (test code = 6291731791) 51.9 cm MV E pk berta (test code = 0125272663) 1.19 m/s MV pk grad (test code = 8501901349) mmHg AV pk grad (test code = 3170580893) mmHg LV stroke vol (test code = 9650910709) 63 ml AV VTI (test code = 9973577322) 32 cm AV pk berta (test code = 2356349164) 1.59 m/s LVOT VTI (test code = 0030256438) 20.2 cm LVOT pk berta (test code = 5297043092) 1.07 m/s LVOT area (test code = 0502944692) 3.14 cm2 LVOT diam (test code = 8641195774) 20 mm MV DT (test code = 5332857770) 330 ms MV e' lateral berta (test code = 8942904534) 5.78 cm/s MV E/A ratio (test code = 0186440497) MV area cont eq (test code = 0593104518) 1.22 cm2 MV area PHT (test code = 0266129356) 1.75 cm2 MV mn grad (test code = 6381361780) mmHg LVOT pk grad (test code = 0518625275) mmHg AV mn grad (test code = 2177291619) mmHg MV E/e' septal (test code = 6987255114) TR pk berta (test code = 3150648207) 2.12 m/s AV area pk berta (test code = 6702588712) 2.11 cm2 AV area cont VTI (test code = 1836382431) 1.98 cm2 LVOT mn grad (test code = 8768876050) mmHg RVIDd (test code = 7377767804) 22 cm LV A4C EF (test code = 6912960640) 45 % AV mn berta (test code = 2433762102) 1.05 m/s LVPWd (test code = 5952004832) 9 mm LA size (test code = 4493214116) 34 mm LA vol BP (test code = 9526483293) 36 ml Fractional Shortening 2D (test code = 7767792184) 20 % LVIDs (test code = 4561806845) 35 mm IVSd (test code = 9598580891) 13 mm LVIDd (test code = 6791006673) 43 mm MV E/e' lateral (test code = 7720576) MV e' septal berta (test code = 4315325) 4.73 cm/s LV ESV 2D (test code = 5515483) 49.5 mL LV EDV 2D (test code = 6973870) 83.5 mL IVSd 2D (test code = 6704951) 13.430888880602519 cm BSA (test code = 4252232278) 2.02 m2 Radiology Study observation (narrative) (test code = 07368-1) ELLYN (test code = ELLYN) [facility] Dqiektf5995-42-98 20:58:45* Test Item Value Reference Range Interpretation Comme nts POC Glu (test code = 6352718252) 168 mg/dL 70-99 H POC Glu Comment 1 (test code = 4459531109) Notified RN/MD POC Glu Comment 2 (test code = 3762801653) Cleaned Meter POC Performing Location (genoveva t code = 6428718580) CV ICU Lab Interpretation (test cod e = 08766-2) Abnormal [facility] Lywlhnu9404-57-41 15:19:05* Test Item Value Reference Range Interpretation Comme nts POC Glu (test code = 4141298103) 199 mg/dL 70-99 H POC Performing Location (genoveva t code = 6089723606) CV ICU Lab Interpretation (test cod e = 45728-9) Abnormal [facility] Mxvxxmf5886-24-77 11:13:16* Test Item Value Reference Range Interpretation Comme nts POC Glu (test code = 0206110270) 171 mg/dL 70-99 H POC Performing Location (genoveva t code = 0286233366) CV ICU Lab Interpretation (test cod e = 60948-7) [facility] hsoaujjt4566-08-39 09:37:09* Test Item Value Reference Range Interpretation Comme nts LVOT Vmax/AV Vmax (test code = 7265599838) 0.59 {ratio} LVOT Vmean (test code = 3745003775) 0.53 m/s PV mn berta (test code = 4990416867) 0.6 m/s TR pk grad (test code = 7503665126) mmHg MV A pk berta (test code = 7034193513) 1.09 m/s MV E pk berta (test code = 4514431281) 1.39 m/s PV mn grad (test code = 6783327396) mmHg AV pk grad (test code = 2151374287) mmHg AV VTI (test code = 7945790040) 24.7 cm AV pk berta (test code = 4586023904) 1.42 m/s LVOT VTI (test code = 1164609450) 12.7 cm LVOT pk berta (test code = 7520410034) 0.84 m/s MV DT (test code = 4426918440) 176 ms MV e' lateral berta (test code = 1198979849) 4.13 cm/s MV E/A ratio (test code = 9010657459) PV pk grad (test code = 3404677000) mmHg LVOT pk grad (test code = 8562134445) mmHg AV mn grad (test code = 2471325252) mmHg MV E/e' septal (test code = 2624405405) TR pk berta (test code = 5466043208) 2.68 m/s LVOT mn grad (test code = 4334514478) mmHg AV mn berta (test code = 6135998114) 0.96 m/s Ascending aorta (test code = 9918649945) 29 mm PV pk berta (test code = 2002816497) 0.9 m/s PV VTI (test code = 7706386) 13.8 cm MV E/e' lateral (test code = 5771991) MV e' septal berta (test code = 9446397) 3.48 cm/s BSA (test code = 4685791753) 2.02 m2 LV est EF (test code = 0525376599) 40 % Radiology Study observation (narrative) (test code = 00959-0) ELLYN (test code = ELLYN) [facility] Sgqkttz6781-78-95 07:22:58* Test Item Value Reference Range Interpretation Comme nts POC Glu (test code = 1008955976) 113 mg/dL 70-99 H POC Performing Location (genoveva t code = 4780063104) CV ICU Lab Interpretation (test cod e = 73599-3) Abnormal [facility] Cjtvgzt8065-68-23 04:51:04* Test Item Value Reference Range Interpretation Comme nts POC Glu (test code = 0962371649) 143 mg/dL 70-99 H POC Glu Comment 1 (test code = 8792211375) Notified RN/MD POC Performing Location (genoveva t code = 4131654082) CV ICU Lab Interpretation (test cod e = 58916-6) Abnormal [facility] Juhtfzh1501-96-30 00:36:56* Test Item Value Reference Range Interpretation Comme nts POC Glu (test code = 1782261312) 170 mg/dL 70-99 H POC Glu Comment 1 (test code = 9181469549) Notified RN/MD POC Performing Location (genoveva t code = 3177544072) CV ICU Lab Interpretation (test cod e = 60203-4) Abnormal [facility] Dvmsmcy4280-95-24 20:23:34* Test Item Value Reference Range Interpretation Comme nts POC Glu (test code = 4795668478) 279 mg/dL 70-99 H POC Glu Comment 1 (test code = 0860615630) Notified RN/MD POC Performing Location (genoveva t code = 3373097929) CV ICU Lab Interpretation (test cod e = 13127-0) Abnormal [facility] Etvgzmf8402-71-76 16:43:20* Test Item Value Reference Range Interpretation Comme nts POC Glu (test code = 6178782480) 240 mg/dL 70-99 H POC Glu Comment 1 (test code = 1796979334) Notified RN/MD POC Performing Location (genoveva t code = 9814805140) CV ICU Lab Interpretation (test cod e = 39324-2) Abnormal [facility] Rimiktk0556-86-59 15:23:11* Test Item Value Reference Range Interpretation Comme nts POC Glu (test code = 0203854937) 266 mg/dL 70-99 H POC Glu Comment 1 (test code = 3945681379) Notified RN/MD POC Performing Location (genoveva t code = 4027309676) CV ICU Lab Interpretation (test cod e = 24322-4) [facility]normal [facility] RBC: 2 Hlhel5178-88-50 12:14:40* Test Item Value Reference Range Interpretation Comme nts Product Code (test code = 25) [id number] Unit Number (test code = 1624) [id number] Unit ABO (test code = 6086098) O Unit RH (test code = 7190620) POS Crossmatch (test code = 8261393) Compatible Dispense Status (test code = 1623) Transfused Blood Expiration Date (test code = 530) Product Blood Type (test cod e = 532) Unit Volume (test code = 1322-7) 350 mL [facility] Iemniky2378-01-01 11:48:50* Test Item Value Reference Range Interpretation Comme nts POC Glu (test code = 1998003521) 296 mg/dL 70-99 H POC Glu Comment 1 (test code = 9139163046) Notified RN/MD POC Performing Location (genoveva t code = 9943098851) CV ICU Lab Interpretation (test cod e = 80655-4) Abnormal [facility] Bsiduma3940-17-44 07:45:00* Test Item Value Reference Range Interpretation Comme nts POC Glu (test code = 7847270212) 175 mg/dL 70-99 H POC Glu Comment 1 (test code = 4657035797) Notified RN/MD POC Performing Location (genoveva t code = 7062614774) CV ICU Lab Interpretation (test cod e = 47341-6) Abnormal [facility] Zbtvilr1104-78-38 04:18:40* Test Item Value Reference Range Interpretation Comme nts POC Glu (test code = 3663646305) 109 mg/dL 70-99 H POC Glu Comment 1 (test code = 8113961560) Notified RN/MD POC Performing Location (genoveva t code = 8428432419) CV ICU Lab Interpretation (test cod e = 70531-4) Abnormal [facility] Jyspoea2451-70-12 03:46:43* Test Item Value Reference Range Interpretation Comme nts POC Glu (test code = 2098321056) 118 mg/dL 70-99 H POC Glu Comment 1 (test code = 6849906933) Cleaned Meter POC Performing Location (genoveva t code = 3914790411) CV ICU Lab Interpretation (test cod e = 87307-3) Abnormal [facility] Wvaapre5215-17-77 02:29:35* Test Item Value Reference Range Interpretation Comme nts POC Glu (test code = 7347982714) 97 mg/dL 70-99 POC Glu Comment 1 (test code = 0507255350) Notified RN/MD POC Performing Location (genoveva t code = 4622661561) CV ICU [facility] Ifhxftu5891-22-26 01:23:32* Test Item Value Reference Range Interpretation Comme nts POC Glu (test code = 7781377113) 105 mg/dL 70-99 H POC Glu Comment 1 (test code = 8282060401) Cleaned Meter POC Performing Location (genoveva t code = 7190108445) CV ICU Lab Interpretation (test cod e = 53117-9) Abnormal [facility] Gnrkdrm4483-40-86 00:08:37* Test Item Value Reference Range Interpretation Comme nts POC Glu (test code = 9862089168) 98 mg/dL 70-99 POC Glu Comment 1 (test code = 1279746195) Cleaned Meter POC Performing Location (genoveva t code = 2167391570) CV ICU [facility] Jqciatb4703-86-25 23:09:28* Test Item Value Reference Range Interpretation Comme nts POC Glu (test code = 8185381599) 97 mg/dL 70-99 POC Glu Comment 1 (test code = 5927257840) Notified RN/MD POC Performing Location (genoveva t code = 0549534529) CV ICU [facility] 12 dcdf4052-54-02 22:07:23* Test Item Value Reference Range Interpretation Comme nts Ventricular Rate (test code = 9052634216) BPM Atrial Rate (test code = 8042749652) BPM AR Interval (test code = 2345441968) 176 ms QRS Duration (test code = 8832886416) 144 ms QT/QTc (test code = 0289994348) 460 ms QTc Calculation (test code = 2704382507) 513 ms P-[place] (test code = 8899699450) degrees R-[place] (test code = 1063598618) degrees T-[place] (test code = 7383811774) degrees IMP (test code = IMP) PXN (test code = PXN) [facility]2025-03-01 21:21:40* Test Item Value Reference Range Interpretation Comme nts POC Glu (test code = 5449250943) 97 mg/dL 70-99 POC Glu Comment 1 (test code = 0478162142) Notified RN/MD POC Glu Comment 2 (test code = 0930225884) Cleaned Meter POC Performing Location (genoveva t code = 1511888996) CV ICU [facility] Qnyamba7351-68-95 19:20:12* Test Item Value Reference Range Interpretation Comme nts POC Glu (test code = 5751449044) 121 mg/dL 70-99 H POC Glu Comment 1 (test code = 8798603990) Notified RN/MD POC Glu Comment 2 (test code = 1037916055) Cleaned Meter POC Performing Location (genoveva t code = 1846156200) CV ICU Lab Interpretation (test cod e = 00019-6) Abnormal [facility]2025-03-01 18:09:58* Test Item Value Reference Range Interpretation Comme nts POC Glu (test code = 3236556595) 144 mg/dL 70-99 H POC Glu Comment 1 (test code = 4206932121) Notified RN/MD POC Performing Location (genoveva t code = 3757327375) CV ICU Lab Interpretation (test cod e = 25059-8) Abnormal [facility]2025-03-01 16:14:22* Test Item Value Reference Range Interpretation Comme nts POC Glu (test code = 2499041091) 165 mg/dL 70-99 H POC Glu Comment 1 (test code = 2856952642) Notified RN/MD POC Performing Location (genoveva t code = 9809569825) CV ICU Lab Interpretation (test cod e = 86075-2) Abnormal [facility] Qngtner2593-60-05 13:44:51* Test Item Value Reference Range Interpretation Comme nts POC Glu (test code = 4438696071) 147 mg/dL 70-99 H POC Glu Comment 1 (test code = 8659074932) Notified RN/MD POC Performing Location (genoveva t code = 4666843527) CV ICU Lab Interpretation (test cod e = 48341-0) Abnormal [facility] Xywwlde9719-95-78 12:41:19* Test Item Value Reference Range Interpretation Comme nts POC Glu (test code = 3957593375) 170 mg/dL 70-99 H POC Glu Comment 1 (test code = 1040515822) Notified RN/MD POC Performing Location (genoveva t code = 1668981307) CV ICU Lab Interpretation (test cod e = 42847-0) Abnormal [facility] Wxegilg9378-52-00 10:57:11* Test Item Value Reference Range Interpretation Comme nts POC Glu (test code = 4185269444) 144 mg/dL 70-99 H POC Glu Comment 1 (test code = 1342007971) Notified RN/MD POC Performing Location (genoveva t code = 8062917371) CV ICU Lab Interpretation (test cod e = 58259-7) Abnormal [facility] Bwfmtuz8181-03-28 09:57:26* Test Item Value Reference Range Interpretation Comme [facility] POC Glu (test code = 0148745402) 116 mg/dL 70-99 H POC Glu Comment 1 (test code = 5352977036) Notified RN/MD POC Performing Location (genoveva t code = 6687340292) CV ICU Lab Interpretation (test cod e = 61732-8) Abnormal [facility] Arterial EG7+2024-08-27 07:41:08* Test Item Value Reference Range Interpretation Comme nts POC A Source (test code = 7569202958) ART POC Sodium Lvl (test code = 83549-4) See_Comment H [Automated messa ge] The system which generated this result transmitted reference range: 135 - 145 mEq/L. The reference range was not used to interpret this result as normal/abnormal. POC Potassium Lvl (test code = 08704-1) See_Comment [Automated messa ge] The system which generated this result transmitted reference range: 3.5 - 5.1 mEq/L. The reference range was not used to interpret this result as normal/abnormal. POC Ca Ion (test code = 1390953871) See_Comment [Automated messa ge] The system which generated this result transmitted reference range: 1.05 - 1.25 mMol/L. The reference range was not used to interpret this result as normal/abnormal. POC Hemoglobin (test code = 7797883162) 8.8 g/dL 11.2-15.7 L POC Hematocrit (test code = 2964661933) 26 % 34.1-44.9 L POC pH (test code = 2745-8) 7.35-7.45 POC PCO2 (test code = 2020-6) See_Comment [Automated messa ge] The system which generated this result transmitted reference range: 35 - 45 mmHg. The reference range was not used to interpret this result as normal/abnormal. POC PO2 (test code = 2704-5) See_Comment H [Automated messa ge] The system which generated this result transmitted reference range: 80 - 100 mmHg. The reference range was not used to interpret this result as normal/abnormal. POC CO2 (Calc) (test code = 31978-8) See_Comment [Automated messa ge] The system which generated this result transmitted reference range: 24 - 32 mEq/L. The reference range was not used to interpret this result as normal/abnormal. POC HCO3 (test code = 1961-2) See_Comment [Automated messa ge] The system which generated this result transmitted reference range: 22 - 26 mMol/L. The reference range was not used to interpret this result as normal/abnormal. POC BE (test code = 1926-5) See_Comment [Automated messa ge] The system which generated this result transmitted reference range: -2 - 2 mMol/L. The reference range was not used to interpret this result as normal/abnormal. POC O2 Sat (Calc) (test code = 2709-4) 98 % 95.0-100.0 POC Performing Location (test code = 5716394946) CV ICU Lab Interpretation (test code = 74959-3) Abnormal [facility] Htudihb1785-97-79 07:12:48* Test Item Value Reference Range Interpretation Comme nts POC Glu (test code = 2386980187) 130 mg/dL 70-99 H POC Glu Comment 1 (test code = 3200694755) Cleaned Meter POC Performing Location (genoveva t code = 9619106075) CV ICU Lab Interpretation (test cod e = 51710-6) Abnormal [facility] Fwflevs1243-20-60 04:11:42* Test Item Value Reference Range Interpretation Comme nts POC Glu (test code = 7832999628) 141 mg/dL 70-99 H POC Glu Comment 1 (test code = 4675663242) Notified RN/MD POC Glu Comment 2 (test code = 3025112894) Cleaned Meter POC Performing Location (genoveva t code = 1548812682) CV ICU Lab Interpretation (test cod e = 60032-5) Abnormal [facility] Gdbijlu8678-85-70 03:12:55* Test Item Value Reference Range Interpretation Comme nts POC Glu (test code = 9722918080) 146 mg/dL 70-99 H POC Glu Comment 1 (test code = 8327376548) Notified RN/MD POC Glu Comment 2 (test code = 6840224852) Cleaned Meter POC Performing Location (genoveva t code = 5540008299) CV ICU Lab Interpretation (test cod e = 59388-5) Abnormal [facility] Lluitjr3607-16-26 02:17:30* Test Item Value Reference Range Interpretation Comme nts POC Glu (test code = 3173597628) 164 mg/dL 70-99 H POC Glu Comment 1 (test code = 3793216672) Notified RN/MD POC Glu Comment 2 (test code = 7021597811) Cleaned Meter POC Performing Location (genoveva t code = 2812162116) CV ICU Lab Interpretation (test cod e = 21434-1) Abnormal [facility] Xgfzart8506-49-43 01:10:12* Test Item Value Reference Range Interpretation Comme nts POC Glu (test code = 8205984894) 176 mg/dL 70-99 H POC Glu Comment 1 (test code = 3185136304) Notified RN/MD POC Glu Comment 2 (test code = 1926609207) Cleaned Meter POC Performing Location (genoveva t code = 2928454926) CV ICU Lab Interpretation (test cod e = 27613-2) Abnormal [facility] Sppqtnk8670-43-52 00:24:59* Test Item Value Reference Range Interpretation Comme nts POC Glu (test code = 3741755007) 181 mg/dL 70-99 H POC Glu Comment 1 (test code = 1759806305) Notified RN/MD POC Glu Comment 2 (test code = 7775534426) Cleaned Meter POC Performing Location (genoveva t code = 5862651280) CV ICU Lab Interpretation (test cod e = 94066-9) Abnormal [facility] Cxdfius7269-64-85 22:27:29* Test Item Value Reference Range Interpretation Comme nts POC Glu (test code = 8941915520) 153 mg/dL 70-99 H POC Glu Comment 1 (test code = 8133816481) Notified RN/MD POC Glu Comment 2 (test code = 7425780851) Cleaned Meter POC Performing Location (genoveva t code = 1983362096) CV ICU Lab Interpretation (test cod e = 08583-1) Abnormal [facility] Wpzvmdy4198-00-78 21:01:34* Test Item Value Reference Range Interpretation Comme nts POC Glu (test code = 8779927960) 171 mg/dL 70-99 H POC Glu Comment 1 (test code = 1258060065) Notified RN/MD POC Glu Comment 2 (test code = 5561404292) Cleaned Meter POC Performing Location (genoveva t code = 7083294003) CV ICU Lab Interpretation (test cod e = 86504-5) Abnormal [facility] Xsghgzy3999-03-13 18:59:41* Test Item Value Reference Range Interpretation Comme nts POC Glu (test code = 0271772475) 192 mg/dL 70-99 H POC Glu Comment 1 (test code = 5699045625) Notified RN/MD POC Performing Location (genoveva t code = 7898591328) CV ICU Lab Interpretation (test cod e = 83190-4) Abnormal [facility] Fsykezw8517-20-80 18:14:09* Test Item Value Reference Range Interpretation Comme nts POC Glu (test code = 5192607618) 195 mg/dL 70-99 H POC Glu Comment 1 (test code = 0070153052) Notified RN/MD POC Performing Location (genoveva t code = 5931910331) CV ICU Lab Interpretation (test cod e = 88293-6) Abnormal [facility] Kwzdtmi9157-32-38 17:21:35* Test Item Value Reference Range Interpretation Comme nts POC Glu (test code = 4382616030) 205 mg/dL 70-99 H POC Glu Comment 1 (test code = 6515369696) Notified RN/MD POC Performing Location (genoveva t code = 3241529689) CV ICU Lab Interpretation (test cod e = 55151-7) Abnormal [facility] Zsslqdi4894-71-11 16:12:53* Test Item Value Reference Range Interpretation Comme nts POC Glu (test code = 9750440504) 172 mg/dL 70-99 H POC Glu Comment 1 (test code = 6743258939) Notified RN/MD POC Performing Location (genoveva t code = 2787531928) CV ICU Lab Interpretation (test cod e = 55617-4) Abnormal [facility] Ffpuknr5420-11-40 15:08:58* Test Item Value Reference Range Interpretation Comme nts POC Glu (test code = 5588904694) 179 mg/dL 70-99 H POC Glu Comment 1 (test code = 5937551174) Notified RN/MD POC Performing Location (genoveva t code = 8018518698) CV ICU Lab Interpretation (test cod e = 89991-1) Abnormal [facility] Nmbcrkb4859-52-14 14:33:47* Test Item Value Reference Range Interpretation Comme [facility] POC Glu (test code = 0482662296) 163 mg/dL 70-99 H POC Glu Comment 1 (test code = 7020453066) Notified RN/MD POC Performing Location (genoveva t code = 4508840487) CV ICU Lab Interpretation (test cod e = 89721-4) [facility]normal [facility]: 4 Lfmmn9892-22-07 13:07:02* Test Item Value Reference Range Interpretation Comme [facility] Product Code (test code = 25) [id number] Unit Number (test code = 1624) [id number] Unit ABO (test code = 2148242) O Unit RH (test code = 2015607) POS Crossmatch (test code = 9802987) Compatible Dispense Status (test code = 1623) Released Blood Expiration Date (test code = 530) Product Blood Type (test cod e = 532) Unit Volume (test code = 1322-7) 350 mL [facility]TT2025-02-28 12:28:32* Test Item Value Reference Range Interpretation Comme nts PTT (test code = 82980-2) See_Comment HH [Automated messa ge] The system which generated this result transmitted reference range: 22.9 - 35.8 Seconds. The reference range was not used to interpret this result as normal/abnormal. Lab Interpretation (test code = 77205-1) Abnormal [facility] Arterial Blood Gas and Basic Wiisq7804-60-49 12:17:15* Test Item Value Reference Range Interpretation Comme nts POC A Temp (test code = 3027692554) DegC POC A Source (test code = 8806106250) ART POC A pH (test code = 2744-1) 7.35-7.45 POC A PCO2 (test code = 2019-8) See_Comment [Automated messa ge] The system which generated this result transmitted reference range: 35 - 45 mmHg. The reference range was not used to interpret this result as normal/abnormal. POC A PO2 (test code = 2703-7) See_Comment [Automated messa ge] The system which generated this result transmitted reference range: 80 - 100 mmHg. The reference range was not used to interpret this result as normal/abnormal. POC A HCO3 (test code = 1960-4) See_Comment [Automated messa ge] The system which generated this result transmitted reference range: 22 - 26 mMol/L. The reference range was not used to interpret this result as normal/abnormal. POC A BE (test code = 1925-7) See_Comment L [Automated messa ge] The system which generated this result transmitted reference range: -2 - 2 mMol/L. The reference range was not used to interpret this result as normal/abnormal. POC A O2 Sat (calc) (test code = 2708-6) 99.9 % 95-100 POC A Hgb Tot (test code = 60213-8) 8.9 g/dL 11.2-15.7 L POC A Hct (calc) (test code = 68360-1) 27 % 34.1-44.9 L POC A Na (test code = 04625-6) See_Comment [Automated messa ge] The system which generated this result transmitted reference range: 135 - 145 mEq/L. The reference range was not used to interpret this result as normal/abnormal. POC A K (test code = 6647312) See_Comment L [Automated messa ge] The system which generated this result transmitted reference range: 3.5 - 5.1 mEq/L. The reference range was not used to interpret this result as normal/abnormal. POC Chloride (test code = 0460351) See_Comment H [Automated messa ge] The system which generated this result transmitted reference range: 95 - 109 mEq/L. The reference range was not used to interpret this result as normal/abnormal. POC A Glu (test code = 2339-0) 130 mg/dL 70-99 H POC A LA (test code = 224) See_Comment [Automated messa ge] The system which generated this result transmitted reference range: 0.5 - 2.2 mMol/L. The reference range was not used to interpret this result as normal/abnormal. POC A Ca Ion (test code = 23231-2) See_Comment H [Automated messa ge] The system which generated this result transmitted reference range: 1.05 - 1.25 mMol/L. The reference range was not used to interpret this result as normal/abnormal. POC A Ca Ion (7.4) (test code = 2710531634) 1.24 mmol/L 1.05-1.25 POC Performing Location (test code = 9943033102) [facility] Lab Interpretation (test code = 47555-7) Abnormal [facility] Resources[facility]craSbtimohykz9647-85-55 12:08:11* Test Item Value Reference Range Interpretation Comme nts Fibrinogen Lvl (test code = 3255-7) 322 mg/dL 230-510 Lab Interpretation (test cod e = 53137-1) Normal [facility] ResourcesJxbwWwqtedm-UYV1644-31-28 12:07:29* Test Item Value Reference Range Interpretation Comme nts Prothrombin Time (PT) (test code = 5964-2) See_Comment H [Automated message] The system which generated this result transmitted reference range: 12 - 14.7 Seconds. The reference range was not used to interpret this result as normal/abnormal. INR (test code = 6301-6) 0.87-1.13 H Lab Interpretation (test code = 75043-2) Abnormal [facility] ResourcesPlate[facility] Cmfjp9950-95-73 11:59:46* Test Item Value Reference Range Interpretation Comme nts Plt Count (test code = 777-3) 127 10*3/uL 191-422 L Lab Interpretation (test cod e = 41654-3) Abnormal [facility] Arterial Blood Gas and Basic Ayafw4875-61-99 11:44:37* Test Item Value Reference Range Interpretation Comme nts POC A Temp (test code = 6852695996) DegC POC A Source (test code = 1140807630) ART POC A pH (test code = 2744-1) 7.35-7.45 POC A PCO2 (test code = 2019-) See_Comment [Automated messa ge] The system which generated this result transmitted reference range: 35 - 45 mmHg. The reference range was not used to interpret this result as normal/abnormal. POC A PO2 (test code = 2703-7) See_Comment [Automated messa ge] The system which generated this result transmitted reference range: 80 - 100 mmHg. The reference range was not used to interpret this result as normal/abnormal. POC A HCO3 (test code = 1960-4) See_Comment [Automated messa ge] The system which generated this result transmitted reference range: 22 - 26 mMol/L. The reference range was not used to interpret this result as normal/abnormal. POC A BE (test code = 1925-7) See_Comment [Automated messa ge] The system which generated this result transmitted reference range: -2 - 2 mMol/L. The reference range was not used to interpret this result as normal/abnormal. POC A O2 Sat (calc) (test code = 2708-6) 100 % 95-100 POC A Hgb Tot (test code = 26747-0) 8.7 g/dL 11.2-15.7 L POC A Hct (calc) (test code = 23664-4) 26 % 34.1-44.9 L POC A Na (test code = 29015-0) See_Comment [Automated messa ge] The system which generated this result transmitted reference range: 135 - 145 mEq/L. The reference range was not used to interpret this result as normal/abnormal. POC A K (test code = 0283359) See_Comment [Automated messa ge] The system which generated this result transmitted reference range: 3.5 - 5.1 mEq/L. The reference range was not used to interpret this result as normal/abnormal. POC Chloride (test code = 2685402) See_Comment [Automated messa ge] The system which generated this result transmitted reference range: 95 - 109 mEq/L. The reference range was not used to interpret this result as normal/abnormal. POC A Glu (test code = 2339-0) 164 mg/dL 70-99 H POC A LA (test code = 224) See_Comment [Automated messa ge] The system which generated this result transmitted reference range: 0.5 - 2.2 mMol/L. The reference range was not used to interpret this result as normal/abnormal. POC A Ca Ion (test code = 51496-6) See_Comment [Automated messa ge] The system which generated this result transmitted reference range: 1.05 - 1.25 mMol/L. The reference range was not used to interpret this result as normal/abnormal. POC A Ca Ion (7.4) (test code = 0801510918) 1.12 mmol/L 1.05-1.25 POC Performing Location (test code = 3934423618) [facility] Lab Interpretation (test code = 84372-7) Abnormal [facility] Arterial Blood Gas and Basic Wkbwv8334-81-00 11:15:03* Test Item Value Reference Range Interpretation Comme nts POC A Temp (test code = 0445070393) DegC POC A Source (test code = 0361548656) ART POC A pH (test code = 2744-1) 7.35-7.45 H POC A PCO2 (test code = 2019-8) See_Comment [Automated messa ge] The system which generated this result transmitted reference range: 35 - 45 mmHg. The reference range was not used to interpret this result as normal/abnormal. POC A PO2 (test code = 2703-7) See_Comment [Automated messa ge] The system which generated this result transmitted reference range: 80 - 100 mmHg. The reference range was not used to interpret this result as normal/abnormal. POC A HCO3 (test code = 1960-4) See_Comment [Automated messa ge] The system which generated this result transmitted reference range: 22 - 26 mMol/L. The reference range was not used to interpret this result as normal/abnormal. POC A BE (test code = 1925-7) See_Comment [Automated messa ge] The system which generated this result transmitted reference range: -2 - 2 mMol/L. The reference range was not used to interpret this result as normal/abnormal. POC A O2 Sat (calc) (test code = 2708-6) 100 % 95-100 POC A Hgb Tot (test code = 75180-1) 8.3 g/dL 11.2-15.7 L POC A Hct (calc) (test code = 51058-4) 25 % 34.1-44.9 L POC A Na (test code = 62892-6) See_Comment [Automated messa ge] The system which generated this result transmitted reference range: 135 - 145 mEq/L. The reference range was not used to interpret this result as normal/abnormal. POC A K (test code = 5630239) See_Comment [Automated messa ge] The system which generated this result transmitted reference range: 3.5 - 5.1 mEq/L. The reference range was not used to interpret this result as normal/abnormal. POC Chloride (test code = 3264264) See_Comment [Automated messa ge] The system which generated this result transmitted reference range: 95 - 109 mEq/L. The reference range was not used to interpret this result as normal/abnormal. POC A Glu (test code = 2339-0) 141 mg/dL 70-99 H POC A LA (test code = 224) See_Comment [Automated messa ge] The system which generated this result transmitted reference range: 0.5 - 2.2 mMol/L. The reference range was not used to interpret this result as normal/abnormal. POC A Ca Ion (test code = 25135-3) See_Comment [Automated messa ge] The system which generated this result transmitted reference range: 1.05 - 1.25 mMol/L. The reference range was not used to interpret this result as normal/abnormal. POC A Ca Ion (7.4) (test code = 0646405270) 1.13 mmol/L 1.05-1.25 POC Performing Location (test code = 8001971212) [facility] Lab Interpretation (test code = 52340-9) Abnormal [facility] Venous Blood Gas and Basic Uqspy9970-68-38 10:50:27* Test Item Value Reference Range Interpretation Comme nts POC V Temp (test code = 9988402632) DegC POC V Source (test code = 6917420911) [place] POC V pH (test code = 2746-6) 7.28-7.42 H POC V PCO2 (test code = 202-) See_Comment [Automated messa ge] The system which generated this result transmitted reference range: 38 - 52 mmHg. The reference range was not used to interpret this result as normal/abnormal. POC V PO2 (test code = 2705-2) See_Comment H [Automated messa ge] The system which generated this result transmitted reference range: 20 - 49 mmHg. The reference range was not used to interpret this result as normal/abnormal. POC V HCO3 (test code = 67640-4) 29 mmol/L 22-26 H POC V BE (test code = 1927-3) 5 mmol/L -2-2 H POC V O2 Sat (calc) (test code = 2711-0) 93 % 40-70 H POC V Hgb Tot (test code = 66269-6) 7.7 g/dL 11.2-15.7 L POC V Hct (calc) (test code = 38283-0) 23 % 34.1-44.9 L POC V Na (test code = 69880-8) See_Comment [Automated messa ge] The system which generated this result transmitted reference range: 135 - 145 mEq/L. The reference range was not used to interpret this result as normal/abnormal. POC V K (test code = 05109-7) See_Comment [Automated messa ge] The system which generated this result transmitted reference range: 3.5 - 5.1 mEq/L. The reference range was not used to interpret this result as normal/abnormal. POC V Cl (test code = 31824-6) See_Comment [Automated messa ge] The system which generated this result transmitted reference range: 95 - 109 mEq/L. The reference range was not used to interpret this result as normal/abnormal. POC V Glu (test code = 95599-2) 130 mg/dL 70-99 H POC V LA (test code = 2519-7) See_Comment [Automated messa ge] The system which generated this result transmitted reference range: 0.5 - 2.2 mMol/L. The reference range was not used to interpret this result as normal/abnormal. POC V Ca Ion (test code = 11825-8) See_Comment [Automated messa ge] The system which generated this result transmitted reference range: 1.05 - 1.25 mMol/L. The reference range was not used to interpret this result as normal/abnormal. POC V Ca Ion (7.4) (test code = 4070625482) See_Comment [Automated messa ge] The system which generated this result transmitted reference range: 1.05 - 1.25 mMol/L. The reference range was not used to interpret this result as normal/abnormal. POC Performing Location (test code = 6992279808) [facility] Lab Interpretation (test code = 87051-6) Abnormal [facility] Arterial Blood Gas and Basic Fuowi3579-51-72 10:42:28* Test Item Value Reference Range Interpretation Comme nts POC A Temp (test code = 5553549317) DegC POC A Source (test code = 3126973563) ART POC A pH (test code = 2744-1) 7.35-7.45 POC A PCO2 (test code = 2019-8) See_Comment [Automated messa ge] The system which generated this result transmitted reference range: 35 - 45 mmHg. The reference range was not used to interpret this result as normal/abnormal. POC A PO2 (test code = 2703-7) See_Comment [Automated messa ge] The system which generated this result transmitted reference range: 80 - 100 mmHg. The reference range was not used to interpret this result as normal/abnormal. POC A HCO3 (test code = 1960-4) See_Comment [Automated messa ge] The system which generated this result transmitted reference range: 22 - 26 mMol/L. The reference range was not used to interpret this result as normal/abnormal. POC A BE (test code = 1925-7) See_Comment [Automated messa ge] The system which generated this result transmitted reference range: -2 - 2 mMol/L. The reference range was not used to interpret this result as normal/abnormal. POC A O2 Sat (calc) (test code = 2708-6) 100 % 95-100 POC A Hgb Tot (test code = 60603-2) 7.5 g/dL 11.2-15.7 L POC A Hct (calc) (test code = 97664-2) 23 % 34.1-44.9 L POC A Na (test code = 97637-3) See_Comment [Automated messa ge] The system which generated this result transmitted reference range: 135 - 145 mEq/L. The reference range was not used to interpret this result as normal/abnormal. POC A K (test code = 6131687) See_Comment [Automated messa ge] The system which generated this result transmitted reference range: 3.5 - 5.1 mEq/L. The reference range was not used to interpret this result as normal/abnormal. POC Chloride (test code = 1462646) See_Comment [Automated messa ge] The system which generated this result transmitted reference range: 95 - 109 mEq/L. The reference range was not used to interpret this result as normal/abnormal. POC A Glu (test code = 2339-0) 129 mg/dL 70-99 H POC A LA (test code = 224) See_Comment [Automated messa ge] The system which generated this result transmitted reference range: 0.5 - 2.2 mMol/L. The reference range was not used to interpret this result as normal/abnormal. POC A Ca Ion (test code = 42504-8) See_Comment L [Automated messa ge] The system which generated this result transmitted reference range: 1.05 - 1.25 mMol/L. The reference range was not used to interpret this result as normal/abnormal. POC A Ca Ion (7.4) (test code = 6742846251) 1.04 mmol/L 1.05-1.25 L POC Performing Location (test code = 0296402251) [facility] Lab Interpretation (test code = 53811-0) Abnormal [facility] Arterial Blood Gas and Basic Xqgxv5833-79-46 10:23:36* Test Item Value Reference Range Interpretation Comme nts POC A Temp (test code = 7079552866) DegC POC A Source (test code = 3092527080) ART POC A pH (test code = 2744-1) 7.35-7.45 POC A PCO2 (test code = 2019-8) See_Comment [Automated messa ge] The system which generated this result transmitted reference range: 35 - 45 mmHg. The reference range was not used to interpret this result as normal/abnormal. POC A PO2 (test code = 2703-7) See_Comment [Automated messa ge] The system which generated this result transmitted reference range: 80 - 100 mmHg. The reference range was not used to interpret this result as normal/abnormal. POC A HCO3 (test code = 1960-4) See_Comment [Automated messa ge] The system which generated this result transmitted reference range: 22 - 26 mMol/L. The reference range was not used to interpret this result as normal/abnormal. POC A BE (test code = 1925-7) See_Comment [Automated messa ge] The system which generated this result transmitted reference range: -2 - 2 mMol/L. The reference range was not used to interpret this result as normal/abnormal. POC A O2 Sat (calc) (test code = 2708-6) 100 % 95-100 POC A Hgb Tot (test code = 05424-4) 11.3 g/dL 11.2-15.7 POC A Hct (calc) (test code = 76149-1) 34 % 34.1-44.9 L POC A Na (test code = 19585-3) See_Comment [Automated messa ge] The system which generated this result transmitted reference range: 135 - 145 mEq/L. The reference range was not used to interpret this result as normal/abnormal. POC A K (test code = 6891312) See_Comment [Automated messa ge] The system which generated this result transmitted reference range: 3.5 - 5.1 mEq/L. The reference range was not used to interpret this result as normal/abnormal. POC Chloride (test code = 1544751) See_Comment [Automated messa ge] The system which generated this result transmitted reference range: 95 - 109 mEq/L. The reference range was not used to interpret this result as normal/abnormal. POC A Glu (test code = 2339-0) 140 mg/dL 70-99 H POC A LA (test code = 224) See_Comment [Automated messa ge] The system which generated this result transmitted reference range: 0.5 - 2.2 mMol/L. The reference range was not used to interpret this result as normal/abnormal. POC A Ca Ion (test code = 79144-6) See_Comment [Automated messa ge] The system which generated this result transmitted reference range: 1.05 - 1.25 mMol/L. The reference range was not used to interpret this result as normal/abnormal. POC A Ca Ion (7.4) (test code = 8698825980) 1.21 mmol/L 1.05-1.25 POC Performing Location (test code = 8621746278) [facility] Lab Interpretation (test code = 93086-5) Abnormal [facility] Arterial Blood Gas and Basic Zteuq9206-87-44 09:03:48* Test Item Value Reference Range Interpretation Comme nts POC A Temp (test code = 3991980970) DegC POC A Source (test code = 2965546641) ART POC A pH (test code = 2744-1) 7.35-7.45 H POC A PCO2 (test code = 2019-8) See_Comment [Automated messa ge] The system which generated this result transmitted reference range: 35 - 45 mmHg. The reference range was not used to interpret this result as normal/abnormal. POC A PO2 (test code = 2703-7) See_Comment [Automated messa ge] The system which generated this result transmitted reference range: 80 - 100 mmHg. The reference range was not used to interpret this result as normal/abnormal. POC A HCO3 (test code = 1960-4) See_Comment H [Automated messa ge] The system which generated this result transmitted reference range: 22 - 26 mMol/L. The reference range was not used to interpret this result as normal/abnormal. POC A BE (test code = 1925-7) See_Comment H [Automated messa ge] The system which generated this result transmitted reference range: -2 - 2 mMol/L. The reference range was not used to interpret this result as normal/abnormal. POC A O2 Sat (calc) (test code = 2708-6) 100 % 95-100 POC A Hgb Tot (test code = 46123-4) 12 g/dL 11.2-15.7 POC A Hct (calc) (test code = 48154-7) 36 % 34.1-44.9 POC A Na (test code = 33607-1) See_Comment [Automated messa ge] The system which generated this result transmitted reference range: 135 - 145 mEq/L. The reference range was not used to interpret this result as normal/abnormal. POC A K (test code = 8809973) See_Comment [Automated messa ge] The system which generated this result transmitted reference range: 3.5 - 5.1 mEq/L. The reference range was not used to interpret this result as normal/abnormal. POC Chloride (test code = 4840738) See_Comment [Automated messa ge] The system which generated this result transmitted reference range: 95 - 109 mEq/L. The reference range was not used to interpret this result as normal/abnormal. POC A Glu (test code = 2339-0) 101 mg/dL 70-99 H POC A LA (test code = 224) See_Comment [Automated [employer]] The system which generated this result transmitted reference range: 0.5 - 2.2 mMol/L. The reference range was not used to interpret this result as normal/abnormal. POC A Ca Ion (test code = 19876-3) See_Comment [Automated messa Harvest] The system which generated this result transmitted reference range: 1.05 - 1.25 mMol/L. The reference range was not used to interpret this result as normal/abnormal. POC A Ca Ion (7.4) (test code = 9519010289) 1.28 mmol/L 1.05-1.25 H POC Performing Location (test code = 8162428221) [facility] Lab Interpretation (test code = 66571-7) Abnormal [facility] Sstbbwt9867-05-87 08:09:57* Test Item Value Reference Range Interpretation Comme [facility] POC Glu (test code = 5196704120) 93 mg/dL 70-99 POC Glu Comment 1 (test code = 3938321754) Cleaned Meter POC Performing Location (genoveva t code = 3056101653) CVOR/PACU [facility] 16:31:24* Test Item Value Reference Range Interpretation Comme [facility] RADRPT (test code = RADRPT) EXAM: Spine lumbar 2 or 3 views DXHISTORY: - Pain after fallCOMPARISON: None availableAP and lateral views of the lumbar spineThere is slight anterolisthesis of L4 on L5. There is mild superior endplate compression at T12. There is moderate facet arthropathy at L4-5 and L5-S1. Vertebral body heights are maintained.IMPRESSION:Sligh t superior endplate compression deformity at T12. Degenerative change of the lower lumbar facets. [facility] 15:13:00* Test Item Value Reference Range Interpretation Comme [facility] Glucose Lvl (test code = Glucose Lvl) 224 65-99 BUN (test code = BUN) 24 7-25 Creatinine Lvl (test code = Creatinine Lvl) 0.71 0.50-1.05 eGFR (test code = eGFR) 93 B/C Ratio (test code = B/C Ratio) NOT APPLICABLE 6-22 Sodium Lvl (test code = Sodi um Lvl) 138 135-146 Potassium Lvl (test code = Potassium Lvl) 3.9 3.5-5.3 Chloride Lvl (test code = Chloride Lvl) 102 98-110 CO2 (test code = CO2) 25 20-32 Calcium Lvl (test code = Calcium Lvl) 9.3 8.6-10.4 Total Protein (test code = Total Protein) 8.2 6.1-8.1 Albumin Lvl (test code = Albumin Lvl) 4.1 3.6-5.1 Globulin (test code = Globulin) 4.1 1.9-3.7 A/G Ratio (test code = A/G Ratio) 1.0 1.0-2.5 Bili Total (test code = Bili Total) 0.6 0.2-1.2 Alk Phos (test code = Alk Phos) 149 37-153 AST (test code = AST) 30 10-35 ALT (test code = ALT) 14 6-29 Hgb A1C (test code = Hgb A1C) 9.8 U Alb (test code = U Alb) 1.3 U Microalb Comment (test cod e = U Microalb Comment) SEE COMMENT [facility]011[facility]87 21:37:00* Test Item Value Reference Range Interpretation Comme [facility] POC COVID-19 Antigen (test code = POC COVID-19 Antigen) Not Detected *NA*(12/26/22 4:37 PM) [facility] DallasMnvvjiiTAPWEBSJD6857-17-92 14:38:00* Test Item Value Reference Range Interpretation Comme [facility] Glucose Lvl (test code = Glucose Lvl) 121 65-99 BUN (test code = BUN) 27 7-25 Creatinine Lvl (test code = Creatinine Lvl) 0.75 0.50-1.05 eGFR (test code = eGFR) 88 B/C Ratio (test code = B/C Ratio) 36 6-22 Sodium Lvl (test code = Sodium Lvl) 142 135-146 Potassium Lvl (test code = P otassium Lvl) 4.3 3.5-5.3 Chloride Lvl (test code = Chloride Lvl) 106 98-110 CO2 (test code = CO2) 28 20-32 Calcium Lvl (test code = Calcium Lvl) 10.2 8.6-10.4 Total Protein (test code = T otal Protein) 7.6 6.1-8.1 Albumin Lvl (test code = Albumin Lvl) 3.8 3.6-5.1 Globulin (test code = Globulin) 3.8 1.9-3.7 A/G Ratio (test code = A/G Ratio) 1.0 1.0-2.5 Bili Total (test code = Bili Total) 0.6 0.2-1.2 Alk Phos (test code = Alk Phos) 100 37-153 AST (test code = AST) 31 10-35 ALT (test code = ALT) 15 6-29 Hgb A1C (test code = Hgb A1C) 9.0 Chol (test code = Chol) 159 HDL (test code = HDL) 42 Trig (test code = Trig) 115 LDL (Calculated) (test code = LDL (Calculated)) 96 Chol/HDL Ratio (test code = Chol/HDL Ratio) 3.8 Non HDL Chol (test code = Non HDL Chol) 117 U Creat mg/dL (test code = U Creat mg/dL) 82 20-275 U Alb (test code = U Alb) 0.9 U Alb/Crea (test code = U Alb/Crea) 11 TSH (test code = TSH) 3.57 0.40-4.50 [facility]kIJFOXJWFXW2589-85-82 14:38:00* Test Item Value Reference Range Interpretation Comme nts WBC (test code = WBC) 8.3 3.8-10.8 RBC (test code = RBC) 4.51 3.80-5.10 Hgb (test code = Hgb) 13.2 11.7-15.5 Hct (test code = Hct) 40.9 35.0-45.0 MCV (test code = MCV) 90.7 80.0-100.0 MCH (test code = MCH) 29.3 pg 27.0-33.0 MCHC (test code = MCHC) 32.3 32.0-36.0 RDW (test code = RDW) 13.2 11.0-15.0 Platelet (test code = Platelet) 147 140-400 MPV (test code = MPV) 11.0 7.5-12.5 Neutrophils # (test code = Neutrophils #) [phone] Lymphocytes # (test code = Lymphocytes #) 3785 850-3900 Monocytes # (test code = Monocytes #) 747 200-950 Eosinophils # (test code = Eosinophils #) 257 15-500 Basophils # (test code = Basophils #) 58 <=200 Segs (test code = Segs) 41.6 Lymphocytes (test code = Lymphocytes) 45.6 Monocytes (test code = Monocytes) 9.0 Eosinophils (test code = Eosinophils) 3.1 Basophils (test code = Basophils) 0.7 [facility]2022-09-30 16:10:00* Test Item Value Reference Range Interpretation Comme nts Glucose Lvl (test code = Glucose Lvl) 79 65-99 BUN (test code = BUN) 16 7-25 Creatinine Lvl (test code = Creatinine Lvl) 0.70 0.50-1.05 eGFR (test code = eGFR) 95 B/C Ratio (test code = B/C Ratio) NOT APPLICABLE 6-22 Sodium Lvl (test code = Sodi um Lvl) 142 135-146 Potassium Lvl (test code = Potassium Lvl) 4.0 3.5-5.3 Chloride Lvl (test code = Chloride Lvl) 107 98-110 CO2 (test code = CO2) 27 20-32 Calcium Lvl (test code = Calcium Lvl) 9.7 8.6-10.4 Total Protein (test code = Total Protein) 7.8 6.1-8.1 Albumin Lvl (test code = Albumin Lvl) 4.2 3.6-5.1 Globulin (test code = Globulin) 3.6 1.9-3.7 A/G Ratio (test code = A/G Ratio) 1.2 1.0-2.5 Bili Total (test code = Bili Total) 0.5 0.2-1.2 Alk Phos (test code = Alk Phos) 112 37-153 ASPARTATE TRANSAMINASE (test code = ASPARTATE TRANSAMINASE) 40 10-35 ALANINE AMINOTRANSFERASE (te st code = ALANINE AMINOTRANSFERASE) 18 6-29 [id number] 16:10:00* Test Item Value Reference Range Interpretation Comme nts WBC X 10x3 (test code = WBC X 10x3) 6.8 3.8-10.8 RBC X 10x6 (test code = RBC X 10x6) 4.42 3.80-5.10 Hgb (test code = Hgb) 13.4 11.7-15.5 Hct (test code = Hct) 40.1 35.0-45.0 MCV (test code = MCV) 90.7 80.0-100.0 MCH (test code = MCH) 30.3 pg 27.0-33.0 MCHC (test code = MCHC) 33.4 32.0-36.0 RDW (test code = RDW) 13.1 11.0-15.0 Platelet (test code = Platelet) 177 140-400 MPV (test code = MPV) 11.1 7.5-12.5 Neutrophils # (test code = Neutrophils #) [phone] Lymphocytes # (test code = Lymphocytes #) 3516 850-3900 Monocytes # (test code = Monocytes #) 843 200-950 Eosinophils # (test code = Eosinophils #) 496 15-500 Basophils # (test code = Basophils #) 61 <=200 Segs (test code = Segs) 27.7 Lymphocytes (test code = Lymphocytes) 51.7 Monocytes (test code = Monocytes) 12.4 Eosinophils (test code = Eosinophils) 7.3 Basophils (test code = Basophils) 0.9 [facility] [id number] 16:10:00* Test Item Value Reference Range Interpretation Comme [facility] Hgb A1C (test code = Hgb A1C) 7.3 [facility] [id number] 18:48:00* Test Item Value Reference Range Interpretation Comme nts Glucose Lvl (test code = Glucose Lvl) 229 65-139 BUN (test code = BUN) 23 7-25 Creatinine Lvl (test code = Creatinine Lvl) 0.75 0.50-0.99 eGFR NON-AFR. EMIRATI (test code = eGFR NON-AFR. EMIRATI) 83 eGFR (test code = eGFR ) 96 B/C Ratio (test code = B/C Ratio) NOT APPLICABLE 6-22 Sodium Lvl (test code = Sodi um Lvl) 143 135-146 Potassium Lvl (test code = Potassium Lvl) 4.1 3.5-5.3 Chloride Lvl (test code = Chloride Lvl) 106 98-110 CO2 (test code = CO2) 31 20-32 Calcium Lvl (test code = Calcium Lvl) 9.5 8.6-10.4 Total Protein (test code = Total Protein) 7.5 6.1-8.1 Albumin Lvl (test code = Albumin Lvl) 4.0 3.6-5.1 Globulin (test code = Globulin) 3.5 1.9-3.7 A/G Ratio (test code = A/G Ratio) 1.1 1.0-2.5 Bili Total (test code = Bili Total) 0.6 0.2-1.2 Alk Phos (test code = Alk Phos) 99 37-153 ASPARTATE TRANSAMINASE (test code = ASPARTATE TRANSAMINASE) 37 10-35 ALANINE AMINOTRANSFERASE (te st code = ALANINE AMINOTRANSFERASE) 19 6-29 [id number] 18:48:00* Test Item Value Reference Range Interpretation Comme nts WBC X 10x3 (test code = WBC X 10x3) 7.0 3.8-10.8 RBC X 10x6 (test code = RBC X 10x6) 3.99 3.80-5.10 Hgb (test code = Hgb) 12.2 11.7-15.5 Hct (test code = Hct) 36.0 35.0-45.0 MCV (test code = MCV) 90.2 80.0-100.0 MCH (test code = MCH) 30.6 pg 27.0-33.0 MCHC (test code = MCHC) 33.9 32.0-36.0 RDW (test code = RDW) 13.6 11.0-15.0 Platelet (test code = Platelet) 156 140-400 MPV (test code = MPV) 11.1 7.5-12.5 Neutrophils # (test code = Neutrophils #) 2863 7469-7221 Lymphocytes # (test code = Lymphocytes #) 3185 850-3900 Monocytes # (test code = Monocytes #) 714 200-950 Eosinophils # (test code = Eosinophils #) 189 15-500 Basophils # (test code = Basophils #) 49 <=200 Segs (test code = Segs) 40.9 Lymphocytes (test code = Lymphocytes) 45.5 Monocytes (test code = Monocytes) 10.2 Eosinophils (test code = Eosinophils) 2.7 Basophils (test code = Basophils) 0.7 [facility] [id number] 18:48:00* Test Item Value Reference Range Interpretation Comme nts Hgb A1C (test code = Hgb A1C) 6.8 [facility] [id number] 16:47:00* Test Item Value Reference Range Interpretation Comme nts WBC X 10x3 (test code = WBC X 10x3) 7.8 3.8-10.8 RBC X 10x6 (test code = RBC X 10x6) 4.63 3.80-5.10 Hgb (test code = Hgb) 13.4 11.7-15.5 Hct (test code = Hct) 41.5 35.0-45.0 MCV (test code = MCV) 89.6 80.0-100.0 MCH (test code = MCH) 28.9 pg 27.0-33.0 MCHC (test code = MCHC) 32.3 32.0-36.0 RDW (test code = RDW) 13.3 11.0-15.0 Platelet (test code = Platelet) 159 140-400 MPV (test code = MPV) 11.3 7.5-12.5 Neutrophils # (test code = Neutrophils #) 3643 1582-0001 Lymphocytes # (test code = Lymphocytes #) 3081 850-3900 Monocytes # (test code = Monocytes #) 710 200-950 Eosinophils # (test code = Eosinophils #) 320 15-500 Basophils # (test code = Basophils #) 47 <=200 Segs (test code = Segs) 46.7 Lymphocytes (test code = Lymphocytes) 39.5 Monocytes (test code = Monocytes) 9.1 Eosinophils (test code = Eosinophils) 4.1 Basophils (test code = Basophils) 0.6 [facility] [id number] 16:47:00* Test Item Value Reference Range Interpretation Comme nts Chol (test code = Chol) 159 HDL (test code = HDL) 42 Trig (test code = Trig) 91 LDL (Calculated) (test code = LDL (Calculated)) 98 CHD Risk (test code = CHD Risk) 3.8 Non HDL Chol (test code = Non HDL Chol) 117 [facility] [id number] 16:47:00* Test Item Value Reference Range Interpretation Comme nts Hgb A1C (test code = Hgb A1C) 7.2 [facility] [id number] 16:47:00* Test Item Value Reference Range Interpretation Comme nts Glucose Lvl (test code = Glucose Lvl) 135 65-99 BUN (test code = BUN) 20 7-25 Creatinine Lvl (test code = Creatinine Lvl) 0.69 0.50-0.99 eGFR NON-AFR. EMIRATI (test code = eGFR NON-AFR. EMIRATI) 91 eGFR (test code = eGFR ) 106 B/C Ratio (test code = B/C Ratio) NOT APPLICABLE 6-22 Sodium Lvl (test code = Sodi um Lvl) 142 135-146 Potassium Lvl (test code = Potassium Lvl) 4.4 3.5-5.3 Chloride Lvl (test code = Chloride Lvl) 107 98-110 CO2 (test code = CO2) 28 20-32 Calcium Lvl (test code = Calcium Lvl) 9.8 8.6-10.4 Total Protein (test code = Total Protein) 8.2 6.1-8.1 Albumin Lvl (test code = Albumin Lvl) 4.3 3.6-5.1 Globulin (test code = Globulin) 3.9 1.9-3.7 A/G Ratio (test code = A/G Ratio) 1.1 1.0-2.5 Bili Total (test code = Bili Total) 0.5 0.2-1.2 Alk Phos (test code = Alk Phos) 76 37-153 ASPARTATE TRANSAMINASE (test code = ASPARTATE TRANSAMINASE) 37 10-35 ALANINE AMINOTRANSFERASE (te st code = ALANINE AMINOTRANSFERASE) 15 6-29 [facility] ABDOMEN [id number] 10:55:03 [facility]I [facility] : 1955 Sex: FCLINICAL INDICATION : R10.10 Upper abdominal pain, unspecifiedTECHNIQUE:Real-time and doppler ultrasound evaluation of the abdomen was performed on the Siemens Dipika .FINDINGS:Comparison study: none.The liver is normal in contour and exhibits increased echogenicity measuring 16.3 cm. There are no hepatic masses. The biliary tree, hepatic veins and portal venous system are normal. The common bile duct measures 5.0 mm.The gallbladder is unremarkable without gallstones or sludge. The spleen is normal in size and contour. It measures 9.7 cm.The pancreas is normal. Right and left kidneys are normal in size and echotexture. There are no masses or hydronephrosis. The right kidney measures 10.8 cm. The left kidney measures 10.2 cm. Visualized IVC and aorta are unremarkable.No ascites is noted in the abdomen.IMPRESSION:Hepatic steatosis.[U] XR HAND MIN 3 VWS [id number] 14:45:00Images acquired, not reported on this accession number.[facility][O] Hemoglobin A1c (in office)2018-12-21 17:43:00* Test Item Value Reference Range Interpretation Comme nts HEMOGLOBIN A1c (test code = 4548-4) 10.3 External QC Done? (test code = External QC Done?) Yes [facility] ([facility] In [facility])2018-12-21 17:42:00* Test Item Value Reference Range Interpretation Comme nts Glucose POC Lifescan (test c ode = Glucose POC Lifescan) 150 External QC Done Today? (genoveva t code = External QC Done Today?) Yes [facility] CERVICAL [id number] 18:01:12CLINICAL INDICATION: M79.12 Myalgia of auxiliary muscles, head and neckMODALITY: Avanto 1.5 [place] 18 channel MRITECHNIQUE: Multiplanar SE and FSE evaluation of the cervical region was performed priorto and following contrast enhancement. Approximately 17 ml of Dotarem is administered intravenously.IMPRESSION:1. Degenerative disc disease and mild disc space narrowing are seen in the cervical spine, most pronounced at C5-C7 level.2. Straightening of the normal cervical lordosis may indicate muscl e spasm.3. The cervical spinal cord appears normal.4. Moderate central spinal canal stenosis present at C5-C6 level resulting from a diffuse 3 mm lobulated disc osteophyte complex, prominent right-sided uncovertebral osteophytes and mild bilateral facet degeneration. Canal diameter is estimated at 7 mm. Moderate severe right neural foraminal stenosis is also visible.FINDINGS:COMPARISON: noneThereis normal cervical alignment. There is straightening of the normal cervical lordosis. Diffuse disc dessication is seen throughout the cervical spine. Disc space narrowing and disc osteophyte complexes are most prominent at C5-C7 level. There is no fracture or marrow infiltration. There are no destru ctive osseous lesions. There are no paraspinous or prevertebral soft tissue masses.The craniocervical junction is normal. There is no mass, stenosis or Chiari malformation.The cervical spinal cord isnormal on all pulse sequences without compression, edema or gliosis.FINDINGS AT SPECIFIC LEVELS:C2-C3: No significant disc protrusion, spinal canal nor neural foraminal stenosis.C3-C4: Broad central 1 mm protrusion without significant spinal canal nor neural foraminal stenosis.C4-C5: Diffuse 1 mm posterolateral protrusion without significant spinal canal nor neural foraminal stenosis.C5-C6: Thereis a diffuse lobulated 3 mm disc osteophyte complex eccentric to the right. Prominent uncovertebralosteophytes and mild bilateral facet degeneration noted. Moderate severe right neural foraminal stenosis is seen. The left neural foramen is patent. Moderate central spinal canal stenosis present with canal diameter of 7 mm.C6-C7: Diffuse 1 mm posterolateral protrusion without significant spinal can al nor neural foraminal stenosis.C7-T1: No abnormalitiesCARDIAC ENZYMES 2018-10-23 21:37:00* Test Item Value Reference Range Interpretation Comme nts Total CK (test code = Total CK) 157 12-191 Troponin-I (test code = Troponin-I) 0.12 <=0.40 [facility] [id number] 21:37:00* Test Item Value Reference Range Interpretation Comme nts Globulin (test code = Globulin) 4.5 2.7-4.2 A/G Ratio (test code = A/G Ratio) 0.8 1 0.7-1.6 AGAP (test code = AGAP) 16.1 10.0-20.0 B/C Ratio (test code = B/C Ratio) 19 1 6-25 Glucose Lvl (test code = Glucose Lvl) 387 70-99 AST (test code = AST) 68 <=37 ALT (test code = ALT) 32 <=65 Total Protein (test code = T otal Protein) 8.1 6.4-8.4 Bili Total (test code = Bili Total) 0.4 0.2-1.3 CO2 (test code = CO2) 26 24-32 BUN (test code = BUN) 19 7-22 Albumin Lvl (test code = Albumin Lvl) 3.6 3.5-5.0 Alk Phos (test code = Alk Phos) 115 39-136 Potassium Lvl (test code = P otassium Lvl) 4.1 3.5-5.1 Sodium Lvl (test code = Sodium Lvl) 141 135-145 Chloride Lvl (test code = Chloride Lvl) 103 95-109 eGFR (test code = eGFR) 62 Creatinine Lvl (test code = Creatinine Lvl) 0.98 0.50-1.40 Calcium Lvl (test code = Calcium Lvl) 9.5 8.5-10.5 [id number] 21:37:00* Test Item Value Reference Range Interpretation Comme nts MCV (test code = MCV) 90.5 80.0-98.0 Hct (test code = Hct) 37.6 36.0-48.0 Hgb (test code = Hgb) 12.6 12.0-16.0 RBC (test code = RBC) 4.15 4.20-5.40 WBC (test code = WBC) 5.5 3.7-10.4 MCH (test code = MCH) 30.4 pg 27.0-31.0 RDW (test code = RDW) 14.5 11.5-14.5 MCHC (test code = MCHC) 33.5 32.0-36.0 MPV (test code = MPV) 9.0 7.4-10.4 Platelet (test code = Platelet) 143 133-450 Lymphocytes # (test code = Lymphocytes #) 2.3 1.0-5.5 Neutrophils # (test code = Neutrophils #) 2.4 1.5-8.1 Basophils (test code = Basophils) 0.7 <=1.0 Eosinophils (test code = Eosinophils) 4.4 <=4.0 Monocytes (test code = Monocytes) 9.8 2.0-12.0 Lymphocytes (test code = Lymphocytes) 42.0 20.0-40.0 Segs (test code = Segs) 43.1 45.0-75.0 Monocytes # (test code = Monocytes #) 0.5 <=0.8 Eosinophils # (test code = Eosinophils #) 0.2 <=0.5 [facility]] CMP [id number] 09:41:01* Test Item Value Reference Range Interpretation Comme nts Sodium Level (test code = 2951-2) 139 {mEq/l} 135-145 Potassium Level (test code = 2823-3) 4.2 {mEq/l} 3.5-5.1 Chloride Level (test code = 2075-0) 103 {mEq/l} 95-109 Carbon Dioxide (test code = 2027-9) 28 {mEq/l} 24-32 AGAP (test code = 46709-0) 12.2 {mEq/l} 10.0-20.0 Glucose Lvl; Above High Threshold (test code = 2345-7) 139 mg/dl 70-99 Adult reference range values reflect the clinical guidelinesof the [place] [employer]. Creatinine Lvl (test code = 2160-0) 0.70 mg/dl 0.50-1.40 Blood Urea Nitrogen (test code = 3094-0) 14 mg/dl 7-22 BUN/Creatinine Ratio (test code = 3097-3) 20 6-25 Total Protein (test code = 2885-2) 7.7 g/dl 6.4-8.4 Albumin Lvl (test code = 1751-7) 3.9 g/dl 3.5-5.0 Globulin (test code = 39569-9) 3.8 g/dl 2.7-4.2 A/G Ratio (test code = 1759-0) 1.0 0.7-1.6 Calcium Level Total (test code = 44071-2) 9.1 mg/dl 8.5-10.5 ALT (test code = 1743-4) 35 u/l 0-65 AST; Above High Threshold (test code = 66801-1) 48 u/l 0-37 Bili Total (test code = 1975-2) 0.4 mg/dl 0.2-1.3 Alk Phos (test code = 1783-0) 108 u/l 39-136 eGFR (test code = 74132-4) 93 {ML/MIN/1.7} The eGFR is calculat ed using the CKD-EPI formula. In most young, healthyindividuals the eGFR will be >90 mL/min/1.73m2. The eGFR declines with age. AneGFR of 60-89 may be normal in some populations, particularly the elderly, forwhom the CKD-EPI formula has not been extensively validated. Use of the eGFR isnot recommended in the following populations:Individuals with unstable creatinine concentrations, including patients and those with serious co-morbid conditions.Patients with extremes in muscle mass or diet.The data above are obtained from the National Kidney Disease Education Program(NKDEP) which additionally recommends that when the eGFR is used in patientswith extremes of body mass index for purposes of drug dosing, the eGFR shouldbe multiplied by the estimated BMI. [facility]] LIPID [id number] 09:41:01* Test Item Value Reference Range Interpretation Comme nts Chol (test code = 2093-3) 155 mg/dl <=199 Trig (test code = 2571-8) 121 mg/dl <=149 HDL Cholesterol; Below Low Threshold (test code = 2085-9) 37 mg/dl >=61 CHD Risk (test code = 65497-2) 4.19 3.90-5.80 LDL (test code = 77182-2) 94 mg/dl <=99 VLDL (test code = VLDL) 24 [facility]] TSH, 3RD [id number] 09:41:01* Test Item Value Reference Range Interpretation Comme nts TSH; Above High Threshold (test code = 38483-4) 4.460 {uIU/ml} 0.360-3.740 [facility]] MICROALBUMIN, RANDOM URINE (W/CREATININE)2018-09-01 09:41:01 * Test Item Value Reference Range Interpretation Comme nts Urine Microalbumin (test code = Urine Microalbumin) 6.5 mg/L U Creatinine (test code = 2161-8) <5.00 No established reference ranges. Urine Microalbuming Creatinine Ratio (test code = 01752-3) See Note <=30.0 unable to calcul ate [facility][O] Hemoglobin A1c (in office)2018-09-01 08:31:00* Test Item Value Reference Range Interpretation Comme nts Hemoglobin A1c (test code = 4548-4) 10.2 External QC Done? (test code = External QC Done?) Yes N [facility] ([facility] In [facility])2018-09-01 08:30:00* Test Item Value Reference Range Interpretation Comme nts Glucose POC Lifescan (test c ode = Glucose POC Lifescan) 142 External QC Done Today? (genoveva t code = External QC Done Today?) Yes N [facility])2018-05-19 17:08:00* Test Item Value Reference Range Interpretation Comme nts Glucose POC Lifescan (test c ode = Glucose POC Lifescan) 176 A External QC Done Today? (genoveva t code = External QC Done Today?) Yes N [facility][O] Hemoglobin A1c (in office)2018-05-19 17:07:00* Test Item Value Reference Range Interpretation Comme nts Hemoglobin A1c; Abnormal (te st code = 4548-4) 10.8 A External QC Done? (test code = External QC Done?) Yes N [facility])2018-03-16 15:29:00* Test Item Value Reference Range Interpretation Comme nts Glucose POC Lifescan (test c ode = Glucose POC Lifescan) 349 External QC Done Today? (genoveva t code = External QC Done Today?) Yes N [facility] Consult Notes Date/Time Note Provider Source 2024-09-21 13:11:40 NUTRITION ASSESSMENT - ADULT Consult Reason : New admission Mini Nutrition Screening Mini Nutritional Screening Score : 9 with MNA Score Category: At risk of malnutrition [facility] Assessment of Hydration (Rosmery) Is the patient receiving formal palliative/end-of-life care?: No Is the patient receiving intravenous fluids?: No Is the patient nil by mouth?: No Does the patient have an oral fluid restriction?: No Does the patient have severe visual problem?: No Would the patient be unable to communicate their needs?: No Is the patient prescribed furosemide or bumetanide?: Yes Is the patient prescribed antibiotics (oral or IV)?: Yes Does the patient have a dry tongue and/or mouth?: No Does the patient appear to be confused?: No Please observe the patient locate a glass or cup, pick it up and take a drink. Can they complete this?: Independent (no spills) Initial Risk Category: Medium (2-4 points) Rosmery Risk Category : Medium risk (2-4 points) Nutrition Diagnosis: Nutrition Diagnosis: Altered nutrition-related lab values related to ETIOLOGY: cardiac dysfunction and endocrine dysfunction as evidenced by abnormal plasma glucose and/or HgbA1c levels and edema. Interventions: Will change diet to MAREK, NCS 2/2 to history of DM and dx of CHF Nutrition Diet / Supplement / Parenteral / Enteral Orders Dietary Orders (From admission, onward) Start Ordered 09/21/24 1308 Adult Diet Regular; 4 gm Sodium, No concentrated sweets Diet effective now Question Answer Comment Diet type Regular Restrictions: 4 gm Sodium Restrictions: No concentrated sweets 09/21/24 1308 Nutrition Risk: Low to Moderate in (between > 1 month and < 2 months). Next Date for Nutrition Services Follow Up: 11/05/24 Current Nutrition: Dietary Orders (From admission, onward) Start Ordered 09/21/24 1308 Adult Diet Regular; 4 gm Sodium, No concentrated sweets Diet effective now Question Answer Comment Diet type Regular Restrictions: 4 gm Sodium Restrictions: No concentrated sweets 09/21/24 1308 Parenteral Orders (720h ago, onward) None Nutrition Oral Intake: Oral Intake : intake > 75% average Nutrition Visit/Review Information: Remote assessment completed today; liberalized diet to MAREK and added NCS for DM history; fluids at 1425/day or per MD, related to CHF. Eating 100% per records prior to admission. Appears to be losing weight, most likely 2/2 to diuresis. Anthropometrics Height: 165 cm (5' 4.96") Weight: Body mass index is 29.16 kg/m?. Phenix body weight: 56.9 kg (125 lb 7.4 oz) Adjusted ideal body weight: 65.9 kg (145 lb 4.7 oz) Weight history : Weights on chart are 178 on 09/19 and now at 175#, unsure of UBW. Estimated Nutrition Needs: Weight Used for Equation Calculations: 57 kg (125 lb 10.6 oz) Calculated Energy Needs Using Equations Height: 1.65 m (5' 4.96") Weight Used for Equation Calculations: 57 kg (125 lb 10.6 oz) (kcal/kg) Energy Lower Range: 25 (kcal/kg) Energy Upper Range: 30 (kcal/day) Energy Needs Lower Range: 1425 kcal/day (kcal/day) Energy Needs Upper Range: 1710 kcal/day Temp: 36.4 ?C (97.6 ?F) Estimated Protein Needs (g/kg) Protein Lower Range: 1.2 (g/kg) Protein Upper Range: 1.4 (g/day) Protein Lower Range: 68 g/day (g/day) Protein Upper Range: 80 g/day Fluid Needs Fluid Needs Method: Or per MD (mL/kg) Fluid Needs: 25 (mL/day) Fluid Needs (Calculated): 1425 mL/day Nutrition Physical Findings per delivery director: Orientation Level: Oriented X4 Gastrointestinal (WDL): X Abdomen Inspection: Soft Bowel Sounds: All quadrants Generalized Edema: +1 LLE Edema: +1 Wound 08/26/24 Surgical Proximal;Right Pretibial (Active) Site Assessment Dry;Clean 09/19/24 2200 Wound 08/26/24 Surgical Sternum (Active) Site Assessment Clean;Dry 09/19/24 0800 Wound 08/26/24 Surgical Right Pretibial (Active) Site Assessment Clean;Dry 09/19/24 0800 Wound 08/26/24 Surgical Anterior;Proximal;Right Thigh (Active) Site Assessment Clean;Dry 09/19/24 2200 Wound Medial Abdomen (Active) Site Assessment Clean 09/21/24 0800 Nutrition Focused Physical Exam - Muscles and Fat: Assessment of Muscle Status Unable to Assess Due to?: Remote assessment Basic Information: Admitting diagnosis: Septicemia ([facility]) [A41.9] Clinical course (copied from D/C summary): DISCHARGE DIAGNOSES: Escherichia coli septicemia. Escherichia coli acute cystitis with hematuria and possible pyelonephritis, improving. Sepsis secondary to above. History of coronary artery disease, status post recent coronary artery bypass graft on 08/26/2024. Ischemic cardiomyopathy with acute on chronic systolic and diastolic congestive heart failure, improved. Acute kidney injury, improved and stable. Suspected baseline infiltrate/atelectasis and pneumonia, stable. CONSULTATIONS: Dr. Ruiz, Cardiology. Dr. Fauzai Penn, ID. HISTORY OF PRESENTING ILLNESS AND HOSPITAL COURSE: Please see the initial H and P dictated on admission. The patient is a 68-year-old female with multivessel coronary artery disease, status post recent CABG on August 26, with underlying diabetes mellitus type 2, hypertension, peripheral vascular disease, who was sent to the emergency room for evaluation of fever, shortness of breath. The patient apparently has been intolerant to Invokana in the past and thinks her symptoms started after Farxiga was initiated. The patient was put on some oral antibiotic at the nursing care facility. However, continued to have worsening symptoms and was sent to [facility] Emergency Room. The patient was noted to have sepsis secondary to UTI, had blood cultures positive for E coli and was noted to have E coli septicemia. The patient was put on ceftriaxone and was later added on doxycycline for concerns of possible atelectasis/pneumonia. Was also seen by Cardiology for concerns of acute on chronic systolic congestive heart failure with mild troponin leak, which was thought to be secondary to demand ischemia from underlying sepsis. Was seen by CV Surgery as well, and no further workup was recommended. The patient was initially put on diuretics and gradually transitioned to oral Lasix along with the rest of other chronic maintenance medications. Farxiga was held and patient was resumed back on aspirin, Plavix, Lasix, along with statins. The patient initially had volume overload, which improved. The patient was noted to have ejection fraction 40% to 45% with grade 2 diastolic dysfunction. Insulin dosage was adjusted for optimal blood sugar control. The patient was on ceftriaxone and doxycycline and will complete 2-week total antibiotic treatment course with levofloxacin as per ID recommendations. The patient was seen and evaluated on the day of discharge and was felt to be clinically and hemodynamically stable for discharge home. Health Status: Allergies Allergen Reactions Penicillins Other Upset stomach Other reaction(s): Other (See Comments) Upset stomach Current Facility-Administered Medications: acetaminophen (Tylenol) tablet 650 mg, 650 mg, Oral, q4h PRN, Justyn Prado MD aspirin chewable tablet 81 mg, 81 mg, Oral, Daily, Justyn Prado MD, 81 mg at 09/21/24 0900 brimonidine (AlphaGAN) 0.2 % ophthalmic solution 1 drop, 1 drop, Right Eye, BID, Justyn Prado MD, 1 drop at 09/21/24 09 carvedilol (Coreg) tablet 3.125 mg, 3.125 mg, Oral, BID with meals, Justyn Prado MD, 3.125 mg at 09/21/24 0800 clopidogrel (Plavix) tablet 75 mg, 75 mg, Oral, Daily, Justyn Prado MD, 75 mg at 09/21/24 09 furosemide (Lasix) tablet 40 mg, 40 mg, Oral, Daily, Justyn Prado MD, 40 mg at 09/21/24 0900 guaiFENesin (Robitussin) 100 MG/5ML liquid 200 mg, 200 mg, Oral, 4x daily PRN, Justyn Prado MD, 200 mg at 09/21/24 0038 heparin injection 5,000 Units, 5,000 Units, Subcutaneous, q12h, Justyn Prado MD, 5,000 Units at 09/21/24 0200 insulin glargine (Lantus) pen 40 Units, 40 Units, Subcutaneous, BID, Justyn Prado MD, 40 Units at 09/21/24 09 insulin lispro (HumaLOG, Admelog) injection 4-16 Units, 4-16 Units, Subcutaneous, TID PRN, Justyn Prado MD ipratropium-albuterol (Duo-Neb) 0.5-2.5 mg/3 mL nebulizer solution 3 mL, 3 mL, Nebulization, q4h PRN, Justyn Prado MD, 3 mL at 09/21/24 0031 latanoprost (Xalatan) 0.005 % ophthalmic solution 1 drop, 1 drop, Both Eyes, Nightly, Justyn Prado MD, 1 drop at 09/20/24 2200 levoFLOXacin (Levaquin) tablet 750 mg, 750 mg, Oral, Daily, Justyn Prado MD, 750 mg at 09/21/24 09 methocarbamol (Robaxin) tablet 750 mg, 750 mg, Oral, q8h, Justyn Prado MD, 750 mg at 09/21/24 0600 potassium chloride CR (Klor-Con M20) ER tablet 20 mEq, 20 mEq, Oral, Daily, Justyn Prado MD, 20 mEq at 09/21/24 0900 rosuvastatin (Crestor) tablet 20 mg, 20 mg, Oral, Daily, Justyn Prado MD, 20 mg at 09/21/24 0900 sennosides (Senokot) tablet 17.2 mg, 2 tablet, Oral, BID, Justyn Prado MD, 17.2 mg at 09/21/24 09 timolol (Timoptic) 0.5 % ophthalmic solution 1 drop, 1 drop, Both Eyes, BID, Justyn Prado MD, 1 drop at 09/21/24 0900 Food Insecurity: No Food Insecurity (09/21/2024) Hunger Vital Sign Worried About Running Out of Food in the Last Year: Never true Ran Out of Food in the Last Year: Never true Review / Management: LABS 72 HRS: POC Sodium Lvl Date/Time Value Ref Range Status 08/27/2024 07:38 AM 147 (H) 135 - 145 mEq/L Final Sodium Lvl Date/Time Value Ref Range Status 09/20/2024 04:44 AM 140 136 - 145 mEq/L Final POC Potassium Lvl Date/Time Value Ref Range Status 08/27/2024 07:38 AM 3.6 3.5 - 5.1 mEq/L Final Potassium Lvl Date/Time Value Ref Range Status 09/20/2024 04:44 AM 3.4 3.4 - 4.5 mEq/L Final Magnesium Date/Time Value Ref Range Status 09/20/2024 04:44 AM 1.92 1.6 - 2.60 mg/dL Final Phosphorus Lvl Date/Time Value Ref Range Status 09/04/2024 05:17 AM 2.9 2.4 - 5.1 mg/dL Final Albumin Lvl Date/Time Value Ref Range Status 09/20/2024 04:44 AM 2.9 (L) 3.4 - 5.0 g/dL Final POC V Glu Date/Time Value Ref Range Status 08/26/2024 10:48 AM 130 (H) 70 - 99 mg/dL Final POC A Glu Date/Time Value Ref Range Status 08/26/2024 12:07 PM 130 (H) 70 - 99 mg/dL Final POC Glucose Date/Time Value Ref Range Status 09/20/2024 10:55 PM 129 (A) 70 - 99 mg/dL Final Hgb A1C Date/Time Value Ref Range Status 08/25/2024 07:54 AM 8.32 (H) <=5.60 % Final Creatinine Lvl Date/Time Value Ref Range Status 09/20/2024 04:44 AM 0.84 0.55 - 1.02 mg/dL Final BUN Date/Time Value Ref Range Status 09/20/2024 04:44 AM 24 (H) 9 - 23 mg/dL Final Calcium Lvl Date/Time Value Ref Range Status 09/20/2024 04:44 AM 9.5 8.3 - 10.6 mg/dL Final Intake/Output 09/20/24 0700 - 09/21/24 0659 09/21/24 0700 - 09/22/24 0659 Intake (ml) 720 240 Output (ml) -- -- Net (ml) 720 240 Monitoring and Evaluation: MONITORING AND EVALUATION: Weight changes, Skin, and Digestive/abdominal assessment GOAL: >75% of estimated needs met: Geni Jason, LILLI, LD, [facility] Clinical Nutrition [phone] [email or web address] [facility] 2024-09-19 13:32:23 Spiritual Care Subjective Following up our earlier conversation, Mrs. Moore gave a bit of an update. It was nice to meet also other members of her family. We spoke of God as our ultimate source of peace and about how our feelings can be good indicators of when we have moved out of peace. We also spoke of common distractions that in our older years we often find opportunities for detachment: wealth, pleasure, honor, and power. Reason For Visit Care Recipient: Patient and family together, Patient Time spent: 30 minutes Reason for Visit: Follow-up visit Interventions Relationship Building Interventions: Listened with empathy Exploration Interventions: Explored coping strategies, Facilitated storytelling Empowerment Interventions: Reframed experience of care recipient Ritual Interventions: Provided music, Provided prayer Outcomes Expressed trust: Observed [place] connected with the transcendent: Observed [facility] 2024-09-16 13:04:17 Spiritual Care Subjective Ms. Moore spoke of some of the context of her life and recent experience, including her stay in the hospital. She is a person of remarkable deon, and this part of her journey seems to be one of discovery and meaning, despite and through the difficulty that she has had. She has found new opportunities for spiritual practice and learning. Reason For Visit Care Recipient: Patient Time spent: 45 minutes Referral From: Patient Interventions Relationship Building Interventions: Listened with empathy Exploration Interventions: Facilitated storytelling, Explored spiritual needs and resources Ritual Interventions: Provided music, Provided prayer, Provided ritual, Read sacred text (Provided Communion) Outcomes [place] connected with the transcendent: Observed Verbally processed emotions: Observed T [facility] 2024-09-14 17:30:00 Spiritual Care Subjective Reason For Visit Care Recipient: Patient Reason for Visit: Follow-up visit, Advance directive request Interventions Collaboration Interventions: Clarified information from treatment team Residence Leasing Agent checked in with the nurse regarding doctor's [facility] note, which she found was not in the pt's e-chart. Nurse emailed the pt's attending doctor about the note at the wire spiral binder's request. Fashion Patternmaker services will follow up to facilitate pt's completion/execution of MPOA once the [facility] note is in from the doctor. T [facility] 2024-09-14 16:18:00 Spiritual Care Subjective Residence Leasing Agent visited patient per screening referral. Residence Leasing Agent offered a supportive presence as patient recount her life narrative and different relational connections she had and their impact on her life. Residence Leasing Agent learned that patient strives to see the "blessings in the bad" and leans on her deon as a "Buddhist" in trusting in God. Patient also brought up Medical Power of Box Coverer Hand (MPOA) and a desire to have one completed in the hospital. Residence Leasing Agent provided education concerning Advance Directives and learned that the patient would like her son to be the primary agent for her MPOA. Mina Moore Residence Leasing Agent expressed that a wire spiral binder would follow up regarding the MPOA and provided cilnical scientist education concerning further wire spiral binder availability/support as needed. Reason For Visit Care Recipient: Patient Time spent: 45 minutes Reason for Visit: Admission request, Initial visit Interventions Relationship Building Interventions: Cultivated a relationship of care and support, Listened with empathy Exploration Interventions: Facilitated storytelling, Facilitated life review, Explored relational needs and resources Empowerment Interventions: Encouraged connection with resources, Facilitated decision-making, Provided cilnical scientist education, Supported sense of safety Outcomes Expressed: Feeling heard [place] connected with the transcendent: Observed Processed: Experience, Emotions verbally Identified: Meaningful connections Assessment Spiritual Resources: Deon/trust, Fortune/nancie/luck Emotional Resources: Self-esteem Relational Resources: (Son) Plan Follow-up: (MPOA Follow Up) [facility] 2024-09-14 14:23:21 Associated Order(s): IP CONSULT TO CARDIOLOGY Images from the original note were not included. Cardiology consultation Reason For Consult Elevated Troponins History Of Present Illness Deepthi Moore is a 68 y.o. female who is the clinic patient of Dr. Gerardo Stout with a PMHx of CAD s.p CABG x 4 08/26 with a HELM-LAD. SVG to 1st diagonal, OM, and PDA (RCA) and LAAA clipping, EF 45-50%, HTN, HLD, and DM2. She was discharged 09/07 to a SNF and returns with fever/UTI after starting Farxiga. She denies any type of chest discomfort or palpitations but does state that she is short of breath with exertion. 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 The STEMI was called off as the pt had no chest pain or EKG changes. Past Medical History She has a past medical history of Coronary artery disease, Diabetes mellitus (HCC), Heart disease, Hypertension, Hypotension, and Peripheral artery disease (HCC). Surgical History She has a past surgical history that includes Cataract extraction and Retinal detachment surgery (Right, 2013). Social History She reports that she has never smoked. She has never been exposed to tobacco smoke. She has never used smokeless tobacco. She reports current alcohol use. She reports that she does not use drugs. Allergies Penicillins Medications Prescriptions Prior to Admission[1] Review of Systems CONSTITUTIONAL: + Fever present on admission, resolved now EYES: Denies eye pain ENT: Denies rhinorrhea, sore throat RESPIRATORY: Sob on exertion CARDIOVASCULAR: Denies chest pain, palpitations and leg swelling. GASTROINTESTINAL: Denies nausea,vomiting,abdominal pain,diarrhoea and constipation. GENITOURINARY: Denies dysuria and gross hematuria NEUROLOGIC: Denies headache,dizziness and focal weakness PSYCHIATRIC: Denies behavioral change SKIN: Denies rash Physical Exam General Appearance: resting comfortably,no acute distress HEENT: no scleral icterus, oral mucosa moist Chest Wall: no retractions Lungs: Nonlabored breathing pattern, bilateral diminished breath sounds at lung bases. Heart: Regular rate and rhythm Abdomen: soft,non tender,non distended Extremeties: no pedal edema Skin: CABG incision healing well does not look infected. Right lower extremity harvest incision site looks well without infection. Neurologic: Alert ,awake and oriented x 3 Last Recorded Vitals Blood pressure (!) 128/56, pulse 80, temperature 37.3 ?C (99.1 ?F), resp. rate 18, height 1.651 m (5' 5"), weight 80.1 kg (176 lb 9.4 oz), SpO2 96%. Relevant Results Assessment & Plan CAD s.p CABG/ Elevated Troponin - Pt denies CP - 12-lead EKG no acute changes - Troponin elevation due to demand and very recent CABG in the setting of volume overload and UTI/sepsis Elevated BNP - EF 40-45 with grade 2 DD - BNP: 1061 - Lasix 40 IVP BID - Strict I/O and daily weights HTN - Stable HLD - on statin KYRA Bustamante MD As above. Pt had recent CABG. She has no chest pain or EKG changes. Heparin drip d/c'd. Agree with IV diuretics and treat UTI [1] Medications Prior to Admission Medication Sig Dispense Refill Last Dose/Taking aspirin EC 81 MG EC tablet Take 81 mg by mouth 1 time each day. 09/13/2024 at 9:00 AM brimonidine (AlphaGAN P) 0.2 % ophthalmic solution 09/13/2024 at 5:00 PM carvedilol (Coreg) 3.125 MG tablet Take 1 tablet by mouth in the morning and 1 tablet in the evening. Take with meals. 60 tablet 0 09/13/2024 at 5:00 PM clopidogrel (Plavix) 75 MG tablet Take 1 tablet by mouth 1 time each day. 30 tablet 0 09/13/2024 at 9:00 AM furosemide (Lasix) 40 MG tablet Take 1 tablet by mouth 1 time each day. 30 tablet 0 09/13/2024 at 9:00 AM Insulin Glargine (BASAGLAR KWIKPEN SC) Inject 35 Units/day under the skin in the morning and 35 Units/day in the evening. 09/13/2024 at 9:00 AM insulin lispro (Humalog, Admelog) 100 UNIT/ML injection Inject 10 Units under the skin in the morning and 10 Units at noon and 10 Units in the evening. Inject before meals. 9 mL 0 09/13/2024 at 5:00 PM latanoprost (Xalatan) 0.005 % ophthalmic solution Administer 1 drop into both eyes at bedtime. 09/13/2024 at 9:00 PM methocarbamol (Robaxin) 750 MG tablet Take 1 tablet by mouth in the morning and 1 tablet at noon and 1 tablet before bedtime. Do all this for 10 days. 30 tablet 0 09/13/2024 at 9:00 PM potassium chloride CR (Klor-Con M20) 20 MEQ ER tablet Take 1 tablet by mouth 1 time each day. Do not crush or chew. 30 tablet 0 09/13/2024 at 9:00 AM rosuvastatin (Crestor) 20 MG tablet Take 1 tablet by mouth at bedtime. 30 tablet 0 09/13/2024 at 9:00 PM timolol (Timoptic) 0.5 % ophthalmic solution Administer 1 drop into both eyes in the morning and 1 drop in the evening. 09/13/2024 at 5:00 PM [] polyethylene glycol, PEG, 3350 (Miralax) 17 g packet Take 17 g by mouth 1 time each day for 3 days. 3 packet 0 sennosides (Senokot) 8.6 MG tablet Take 2 tablets by mouth in the morning and 2 tablets in the evening. 120 tablet 0 Susan Mcdaniels 2024-09-14 11:36:00 Associated Order(s): IP CONSULT TO CARDIOLOGY CARDIOLOGY INPATIENT CONSULT NOTE Patient:Deepthi Moore Patient Patient : 1955 Admit Date: 09/14/2024 Service date: 09/14/2024 Referring Physician: No ref. provider found PCP: Diane Aguilera MD Reason for Consult: ACS Chief Complaint: Chief Complaint Patient presents with Fever Patient from [place]; Fever of 102.4F oral; Patient had cardiac Sx Aug 26 History of Present Illness: Deepthi Moore is a 68 y.o. female with history of coronary artery disease status post CABG x 4 in August 26, diabetes, hypertension, PAD presented to the ER with fever and shortness of breath. Initially STEMI was called. After review code STEMI was canceled. Patient denies any chest pain or pressure. Her breathing has significantly improved. She was found to have a fever of 102.4 Fahrenheit. Additionally she notes of having left lower quadrant abdominal pain. She was working with physical therapy at [facility] and had noticed left lower quadrant abdominal pain and inability to participate in her typical physical activity workouts. She denies having had any chest pain or pressure again. Initially no dyspnea then. This morning she feels great. She thinks SGLT2 inhibitor was the cause of her UTI. She previously had failed/not tolerated Invokana. She says she feels at baseline today. Troponins mildly elevated, downtrending. Past Medical History: Medical History[1] Family History: Family History[2] Social History: Social History Tobacco Use Smoking status: Never Passive exposure: Never Smokeless tobacco: Never Substance Use Topics Alcohol use: Yes Comment: 1-2 per year Past Surgical History: Surgical History[3] Medications: Scheduled Meds: aspirin, 81 mg, Oral, Daily carvedilol, 3.125 mg, Oral, BID with meals cefepime, 2 g, Intravenous, q12h clopidogrel, 75 mg, Oral, Daily [START ON 09/15/2024] furosemide, 40 mg, Intravenous, Daily insulin glargine, 40 Units, Subcutaneous, q12h DANTE rosuvastatin, 20 mg, Oral, Daily Continuous Infusions: Allergies: Allergies[4] Review of Systems: Review of other systems including GI, , skin, endocrine, neurologic, musculoskeletal, constitutional, respiratory, cardiac, ophthalmologic, ENT, infectious, hematologic, and vascular systems reveals no pertinent findings related to the HPI and is negative except as noted above OBJECTIVE: 24 Hour Vital Sign Ranges: Temp: [36.3 ?C (97.3 ?F)-38.4 ?C (101.1 ?F)] 36.7 ?C (98.1 ?F) Heart Rate: [57-100] 77 Resp: [18-26] 18 BP: (80-148)/(51-76) 128/56 Most recent vitals: BP (!) 128/56 | Pulse 77 | Temp 36.7 ?C (98.1 ?F) | Resp 18 | Ht 1.651 m (5' 5") | Wt 80.1 kg (176 lb 9.4 oz) | SpO2 99% | BMI 29.39 kg/m? Intake/Output last 3 shifts: No intake/output data recorded. Intake/Output current shift: No intake/output data recorded. Physical Exam: GENERAL: Normal appearance, No acute distress, Alert, Cooperative HENT: Normocpehalic Atraumatic EYES: Normal pupil, Anicteric conjunctivae RESPIRATORY: Normal air entry bilaterally, No crackles or wheeze CV: Normal rate, regular rhythm, normal S1 and S2, Warm to palpation GI: Soft, Non-tender, Active bowel sounds NEURO: No focal deficits MSK: No peripheral edema or cyanosis SKIN: Sternotomy scar Labs and Diagnostics: Data Review: All pertinent labs and imaging reviewed Labs: Labs in chart were reviewed. Lab Results Component Value Date WBC 17.43 (H) 09/14/2024 Hgb 10.2 (L) 09/14/2024 Hct 32.6 (L) 09/14/2024 Plt Count 220 09/14/2024 Lab Results Component Value Date Sodium Lvl 133 (L) 09/14/2024 Potassium Lvl 3.9 09/14/2024 Chloride Lvl 98 09/14/2024 CO2 Lvl 22.5 09/14/2024 BUN 26 (H) 09/14/2024 Creatinine Lvl 1.16 (H) 09/14/2024 Glucose Lvl 225 (H) 09/14/2024 Lab Results Component Value Date HS Troponin I 1 Hour 544 (H) 09/14/2024 HS Troponin I 0 to 1 Hour Delta -18 09/14/2024 HS Troponin I Baseline 562 (H) 09/14/2024 Natriuretic Peptide B 1,061 (H) 09/14/2024 No results found for: "HGBA1C" No results found for: "TSH" Diagnostics: EKG: Reviewed non-STEMI Echo: Pending Radiology Review: Reviewed Hospital diagnosis: Principal Problem: Acute non-ST elevation myocardial infarction (NSTEMI) (CMS/HCC) ([facility]) Active Problems: 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 Diabetes mellitus, type 2 ([facility]) Ischemic cardiomyopathy Hyperlipidemia Acute on chronic systolic (congestive) heart failure ([facility]) S/P CABG x 4 UTI (urinary tract infection) Sepsis ([facility]) EDUARDA (acute kidney injury) ([facility]) Hyperbilirubinemia ASSESSMENT/PLAN: 68 y.o. female with coronary artery disease status post CABG x 4 in 08/26, hypertension, hyperlipidemia, diabetes presented with sepsis. Code STEMI canceled. No chest pain or pressure. No dyspnea. Troponin mildly elevated and downtrending. No active ischemia. This is in the setting of underlying CAD and sepsis. Sepsis thought to be due to UTI. Possibly pyelo-? On antibiotics. - Not ACS. No need for heparin drip. STEMI R/O. NSTEMI R/O. 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 Ruiz We appreciate consult of this pleasant patient and allowing us to participate in their care. Please let us know if there are any questions or concerns. Thierry Borrero MD Interventional Cardiology [facility], Embryology Teacher Cardiovascular Medicine [place] [facility] - [facility] [1] Past Medical History: Diagnosis Date Coronary artery disease Diabetes mellitus ([facility]) Heart disease Hypertension Hypotension Peripheral artery disease (HCC) [2] Family History: Problem Relation Name Age of Onset Heart disease Mother Stroke Mother Diabetes Sister [3] Past Surgical History: Procedure Laterality Date CATARACT EXTRACTION 2009 and 2013 RETINAL DETACHMENT SURGERY Right 2014 [4] Allergies Allergen Reactions Penicillins Other Upset stomach Other reaction(s): Other (See Comments) Upset stomach Interventional Cardiology Physician [facility] 2024-09-14 00:00:00 PATIENT NAME: DEEPTHI MOORE CONTACT SERIAL NUMBER: [id number] DATE OF CONSULT: 09/14/2024 REFERRING PHYSICIAN: SONAL SALDIVAR MD REASON FOR CONSULTATION: Possible acute non-ST elevation myocardial infarction status post coronary artery bypass surgery, urinary tract infection. HISTORY OF PRESENT ILLNESS: The patient is a 68-year-old female known to have past medical history significant for coronary heart disease, diabetes mellitus, hypertension, peripheral arterial disease who is status post coronary artery bypass surgery on 08/26/2024. She was recently discharged from the hospital and admitted to [place] to continue her rehabilitation and physical therapy. Now admitted with complaints of shortness of breath and positive UA. The patient stated that the symptoms started after she was given Farxiga 2 days ago. She was initiated with Bactrim for UTI, but was transferred to [facility] ER due to worsening shortness of breath. On admission she was found to have a troponin of 562 baseline and elevated procalcitonin of 10.8. A CT of the chest was negative for pulmonary embolism. She has been initiated on heparin drip. At the time of the consultation, the patient only complains of shortness of breath. No chest pain. PAST MEDICAL HISTORY: As stated in the history of present illness. ALLERGIES: Penicillin. MEDICATIONS: See AUG. SURGERIES: Status post recent coronary artery bypass surgery on 08/26/2024, cataract surgery. FAMILY HISTORY: Significant for coronary heart disease, diabetes mellitus, CVA. SOCIAL HISTORY: The patient has no history of smoking. Denies any use of alcohol or drugs. REVIEW OF SYSTEMS: CONSTITUTIONAL: No fever and chills, fatigue, poor appetite. SKIN APPENDAGES: Negative. RESPIRATORY: Shortness of breath. CARDIOVASCULAR: As per history of present illness. GI: No nausea, vomiting, or diarrhea. : Positive for dysuria. NEUROLOGIC: No headaches. No TIAs. No dizzy spells. PSYCHIATRIC: No anxiety or depression. ENDOCRINE: No heat or cold intolerance. HEMATOLOGIC: No easy bruising or bleeding. PHYSICAL EXAMINATION: GENERAL: The patient is a 68-year-old female who is awake, alert, oriented. Her respiration is elaborated. Denies any chest pain. VITAL SIGNS: Blood pressure 144/64, heart rate 93, respirations 24, O2 saturation 98%. HEENT: Normocephalic. Pupils isocoric, reactive to light and accommodation. Positive extraocular movements. NECK: Supple. No bruits. No JVD. LUNGS: Decreased breath sounds at bases. ABDOMEN: Soft, nontender, positive bowel sounds. No palpable masses. EXTREMITIES: Trace edema. NEUROLOGIC: No deficit. LABORATORY DATA: Sodium 133, potassium 3.9, creatinine 1.1, BUN 26, procalcitonin 10.8. Troponin I baseline 562. WBC 17.4, hemoglobin 10.2, hematocrit 32.6, platelets 220. She has a positive UA. Urine culture is pending. ASSESSMENT AND PLAN: Elevated baseline troponin, status post coronary artery bypass surgery, diabetes mellitus, urinary tract infection. Continue present care. IV antibiotics and medical management. Cardiology to see patient. We will follow. Dictated by: [facility] Cosigned by Fabricio Lucas MD at 09/15/2024 4:52 PM CDT [facility] 2024-09-09 10:28:26 Images from the original note were not included. NUTRITION ASSESSMENT - ADULT Consult Reason : New admission Mini Nutrition Screening Mini Nutritional Screening Score : 9 with MNA Score Category: At risk of malnutrition [facility] Assessment of Hydration (Rosmery) Is the patient receiving formal palliative/end-of-life care?: No Is the patient receiving intravenous fluids?: No Is the patient nil by mouth?: No Does the patient have an oral fluid restriction?: No Is the patient receiving thickened fluids?: No Does the patient have severe visual problem?: No Would the patient be unable to communicate their needs?: No Is the patient prescribed furosemide or bumetanide?: Yes Is the patient prescribed antibiotics (oral or IV)?: No Does the patient have a dry tongue and/or mouth?: No Does the patient appear to be confused?: No Please observe the patient locate a glass or cup, pick it up and take a drink. Can they complete this?: Independent (no spills) Initial Risk Score: 1 Initial Risk Category: Low (0-1 point) Rosmery Risk Category : Low risk (0-1 point) Nutrition Diagnosis: Nutrition Diagnosis: Increased nutrient needs related to wounds and diagnosis as evidenced by loss of skin integrity. Interventions: May benefit from ONS Nutrition Diet / Supplement / Parenteral / Enteral Orders Dietary Orders (From admission, onward) Start Ordered 09/08/24 1132 Adult Diet Carbohydrate Controlled; Carb choice 1800 robert Diet effective now Comments: NO DELI MEAT Question Answer Comment Diet type Carbohydrate Controlled Calorie / CHO Amount: Carb choice 1800 robert 09/08/24 1131 Nutrition Risk: Low, in 3 months Next Date for Nutrition Services Follow Up: 12/08/24 Current Nutrition: Dietary Orders (From admission, onward) Start Ordered 09/08/24 1132 Adult Diet Carbohydrate Controlled; Carb choice 1800 robert Diet effective now Comments: NO DELI MEAT Question Answer Comment Diet type Carbohydrate Controlled Calorie / CHO Amount: Carb choice 1800 robert 09/08/24 1131 Nutrition Oral Intake: Oral Intake : intake > 75% average Nutrition Visit/Review Information: 09/13: Visited patient at breakfast; eating well, good appetite reported; she relates a UBW of 180# but gained up to 200# post surgery; is now beginning to lose to UBW and is also on diuretic, lasix. Weight loss is planned and acceptable. No other interventions at this time. Noted with elevated glucose and receiving Farziga, glargine and lispro at this time. Anthropometrics Height: 165.1 cm (5' 5") Height Method: Measured Weight: Weight Method: Standing [id number] Body mass index is 30.74 kg/m?. Phenix body weight: 57 kg (125 lb 10.6 oz) Adjusted ideal body weight: 67.7 kg (149 lb 4.4 oz) Estimated Nutrition Needs: Weight Used for Equation Calculations: 57 kg (125 lb 10.6 oz) Calculated Energy Needs Using Equations Height: 1.651 m (5' 5") Weight Used for Equation Calculations: 57 kg (125 lb 10.6 oz) (kcal/kg) Energy Lower Range: 25 (kcal/kg) Energy Upper Range: 30 (kcal/day) Energy Needs Lower Range: 1425 kcal/day (kcal/day) Energy Needs Upper Range: 1710 kcal/day Temp: 36.6 ?C (97.8 ?F) Estimated Protein Needs (g/kg) Protein Lower Range: 1.2 (g/kg) Protein Upper Range: 1.4 (g/day) Protein Lower Range: 68 g/day (g/day) Protein Upper Range: 80 g/day Fluid Needs (mL/kg) Fluid Needs: 30 (mL/day) Fluid Needs (Calculated): 1710 mL/day Nutrition Physical Findings per delivery director: Orientation Level: Oriented X4 Gastrointestinal (WDL): WDL Abdomen Inspection: Soft Bowel Sounds: All quadrants Last BM Date: 09/07/24 Wound 08/26/24 Surgical Proximal;Right Pretibial (Active) Site Assessment Clean 09/09/24 0800 Wound 08/26/24 Surgical Sternum (Active) Site Assessment Clean;Dry;Swelling 09/09/24 0800 Wound 08/26/24 Surgical Right Pretibial (Active) Site Assessment Clean 09/09/24 0800 Wound 08/26/24 Surgical Anterior;Proximal;Right Thigh (Active) Site Assessment Clean 09/09/24 0800 Wound Medial Abdomen (Active) Site Assessment Clean 09/09/24 0800 Teeth: Other (Comment) (Intact) Nutrition Focused Physical Exam - Muscles and Fat: No deficits noted Basic Information: Admitting diagnosis: cad in hoopa artery post op pain cardiogenic shock ischemic cardiomyopathy superficial vein thrombosis dm2 anemia macular dengeration Clinical course (copied from D/C summary): Deepthi Moore is a 68 y.o. female presenting with a history of CAD, diabetes mellitus, hypertension with associated hypertensive heart disease, and peripheral arterial disease who was found to have significant multivessel CAD on cardiac workup and presents to the ICU after undergoing CABG procedure. Past Medical History: She has a past medical history of Coronary artery disease, Diabetes mellitus (HCC), Heart disease, Hypertension, Hypotension, and Peripheral artery disease (HCC). Surgical History: She has a past surgical history that includes Cataract extraction and Retinal detachment surgery (Right, 2013). Social History: She reports that she has never smoked. She has never been exposed to tobacco smoke. She has never used smokeless tobacco. She reports current alcohol use. She reports that she does not use drugs. Daily Summary: 08/26: S/P CAB x 4 Health Status: Allergies[1] Current Medications[2] Current Facility-Administered Medications: acetaminophen (Tylenol 8 Hour) ER tablet 650 mg, 650 mg, Oral, q8h DANTE, Petra Vaughan MD, 650 mg at 09/09/24 09 aspirin EC EC tablet 81 mg, 81 mg, Oral, Daily, Brittani Shelby Dossari, DO, 81 mg at 09/09/24 0900 brimonidine (AlphaGAN) 0.2 % ophthalmic solution 1 drop, 1 drop, Right Eye, BID, Rancindy Ayala Al Dossari, DO, 1 drop at 09/09/24 0900 carvedilol (Coreg) tablet 3.125 mg, 3.125 mg, Oral, BID with meals, Brittani Ayala Al Dossari, DO, 3.125 mg at 09/09/24 0800 clopidogrel (Plavix) tablet 75 mg, 75 mg, Oral, Daily, Brittani Ayala Al Dossari, DO, 75 mg at 09/09/24 0900 dextrose 50 % solution 12.5 g, 12.5 g, Intravenous, PRN, Brittani Shelby Dossari, DO furosemide (Lasix) tablet 40 mg, 40 mg, Oral, Daily, Brittani Shelby Dossari, DO, 40 mg at 09/09/24 0900 insulin glargine (Lantus) pen 40 Units, 40 Units, Subcutaneous, q AM, Petra Vaughan MD, 40 Units at 09/09/24 0700 insulin lispro (Humalog, Admelog) injection 10 Units, 10 Units, Subcutaneous, TID AC, Ranna Jamie Al Dossari, DO, 10 Units at 09/09/24 0730 latanoprost (Xalatan) 0.005 % ophthalmic solution 1 drop, 1 drop, Both Eyes, Nightly, Ranna Jamie Al Dossari, DO, 1 drop at 09/08/24 2100 melatonin tablet 5 mg, 5 mg, Oral, Nightly PRN, Petra Vaughan MD methocarbamol (Robaxin) tablet 750 mg, 750 mg, Oral, TID, Ranna Jamie Al Dossari, DO, 750 mg at 09/09/24 0900 polyethylene glycol (PEG) 3350 (Miralax) packet 17 g, 17 g, Oral, Daily PRN, Perta Vaughan MD potassium chloride CR (Klor-Con M20) ER tablet 20 mEq, 20 mEq, Oral, Daily, Ranna Jamie Al Dossari, DO, 20 mEq at 09/09/24 0900 rosuvastatin (Crestor) tablet 20 mg, 20 mg, Oral, Nightly, Rancindy Landerosm Al Dossari, DO, 20 mg at 09/08/24 2100 sennosides (Senokot) tablet 17.2 mg, 2 tablet, Oral, BID PRN, Petra Vaughan MD timolol (Timoptic) 0.5 % ophthalmic solution 1 drop, 1 drop, Both Eyes, BID, Ranna Jamie Al Dossari, DO, 1 drop at 09/09/24 0900 Food Insecurity: No Food Insecurity (08/28/2024) Hunger Vital Sign Worried About Running Out of Food in the Last Year: Never true Ran Out of Food in the Last Year: Never true Review / Management: LABS 72 HRS: POC Sodium Lvl Date/Time Value Ref Range Status 08/27/2024 07:38 AM 147 (H) 135 - 145 mEq/L Final Sodium Lvl Date/Time Value Ref Range Status 09/09/2024 07:04 AM 136 136 - 145 mEq/L Final POC Potassium Lvl Date/Time Value Ref Range Status 08/27/2024 07:38 AM 3.6 3.5 - 5.1 mEq/L Final Potassium Lvl Date/Time Value Ref Range Status 09/09/2024 07:04 AM 3.7 3.4 - 4.5 mEq/L Final Magnesium Date/Time Value Ref Range Status 09/04/2024 05:17 AM 1.91 1.6 - 2.60 mg/dL Final Phosphorus Lvl Date/Time Value Ref Range Status 09/04/2024 05:17 AM 2.9 2.4 - 5.1 mg/dL Final Albumin Lvl Date/Time Value Ref Range Status 09/09/2024 07:04 AM 3.9 3.4 - 5.0 g/dL Final POC V Glu Date/Time Value Ref Range Status 08/26/2024 10:48 AM 130 (H) 70 - 99 mg/dL Final POC A Glu Date/Time Value Ref Range Status 08/26/2024 12:07 PM 130 (H) 70 - 99 mg/dL Final Glucose Lvl Date/Time Value Ref Range Status 09/09/2024 07:04 AM 240 (H) 70 - 99 mg/dL Final Comment: Adult reference range values reflect the clinical guidelines of the [place] [employer]. POC Glucose Date/Time Value Ref Range Status 09/09/2024 07:20 AM 243 (A) 70 - 99 mg/dL Final External POC Glucose Date/Time Value Ref Range Status 09/09/2024 07:20 AM 243 Final Hgb A1C Date/Time Value Ref Range Status 08/25/2024 07:54 AM 8.32 (H) <=5.60 % Final Creatinine Lvl Date/Time Value Ref Range Status 09/09/2024 07:04 AM 0.86 0.55 - 1.02 mg/dL Final BUN Date/Time Value Ref Range Status 09/09/2024 07:04 AM 13 9 - 23 mg/dL Final Calcium Lvl Date/Time Value Ref Range Status 09/09/2024 07:04 AM 9.3 8.3 - 10.6 mg/dL Final POC glucose - many over 200-300 past few days Intake/Output 09/10/24 07 - 09/11/24 0659 09/11/24 07 - 09/12/24 0659 09/12/24 07 - 09/13/24 0659 Intake (ml) 760 720 480 Output (ml) -- -- -- Net (ml) 760 720 480 Last Weight -- 80.5 kg (177 lb 6.4 oz) Standing -- Monitoring and Evaluation: MONITORING AND EVALUATION: Weight changes, Improved strength/function, Skin, Digestive/abdominal assessment, and Labs: glucose GOAL: >90% of estimated needs met: Geni Jason, RD, LD, [facility] Clinical Nutrition [phone] [email or web address] [1] Allergies Allergen Reactions Penicillins Other Upset stomach Other reaction(s): Other (See Comments) Upset stomach [2] Current Facility-Administered Medications: acetaminophen (Tylenol 8 Hour) ER tablet 650 mg, 650 mg, Oral, q8h DANTE, Petra Vaughan MD, 650 mg at 09/09/24 0900 aspirin EC EC tablet 81 mg, 81 mg, Oral, Daily, Rancindy Shelby Dossari, DO, 81 mg at 09/09/24 0900 brimonidine (AlphaGAN) 0.2 % ophthalmic solution 1 drop, 1 drop, Right Eye, BID, Brittani Ayala Al Dossari, DO, 1 drop at 09/09/24 0900 carvedilol (Coreg) tablet 3.125 mg, 3.125 mg, Oral, BID with meals, Rancindy Ayala Al Dossari, DO, 3.125 mg at 09/09/24 0800 clopidogrel (Plavix) tablet 75 mg, 75 mg, Oral, Daily, Ranna Jamie Al Dossari, DO, 75 mg at 09/09/24 0900 dextrose 50 % solution 12.5 g, 12.5 g, Intravenous, PRN, Brittani Landerosm Al Dossari, DO furosemide (Lasix) tablet 40 mg, 40 mg, Oral, Daily, Brittani Ayala Al Dossari, DO, 40 mg at 09/09/24 0900 insulin glargine (Lantus) pen 40 Units, 40 Units, Subcutaneous, q AM, Petra Vaughan MD, 40 Units at 09/09/24 0700 insulin lispro (Humalog, Admelog) injection 10 Units, 10 Units, Subcutaneous, TID AC, Brittani Shelby Dossari, DO, 10 Units at 09/09/24 0730 latanoprost (Xalatan) 0.005 % ophthalmic solution 1 drop, 1 drop, Both Eyes, Nightly, Brittani Montessari, DO, 1 drop at 09/08/24 2100 melatonin tablet 5 mg, 5 mg, Oral, Nightly PRN, Petra Vaughan MD methocarbamol (Robaxin) tablet 750 mg, 750 mg, Oral, TID, Ranna Jamie Al Dossari, DO, 750 mg at 09/09/24 0900 polyethylene glycol (PEG) 3350 (Miralax) packet 17 g, 17 g, Oral, Daily PRN, Petra Vaughan MD potassium chloride CR (Klor-Con M20) ER tablet 20 mEq, 20 mEq, Oral, Daily, Ranna Jamie Al Dossari, DO, 20 mEq at 09/09/24 0900 rosuvastatin (Crestor) tablet 20 mg, 20 mg, Oral, Nightly, Ranna Jamie Al Dossari, DO, 20 mg at 09/08/24 2100 sennosides (Senokot) tablet 17.2 mg, 2 tablet, Oral, BID PRN, Petra Vaughan MD timolol (Timoptic) 0.5 % ophthalmic solution 1 drop, 1 drop, Both Eyes, BID, Ranna Jamie Al Dossari, DO, 1 drop at 09/09/24 0900 [facility] 2024-09-05 08:47:37 NUTRITION ASSESSMENT - ADULT Screening Reason : LOS Nutrition Diagnosis: Nutrition Diagnosis: No nutrition diagnosis at this time Interventions: Continue Carbohydrate Controlled Diet (1800 kcals) per MD order; recommend 2gm Sodium restriction per patient request. Nutrition Diet / Supplement / Parenteral / Enteral Orders Dietary Orders (From admission, onward) Start Ordered 09/05/24 1119 Adult Diet Carbohydrate Controlled; Carb choice 1800 robert; 2 gm Sodium (Cardiovascular Surgery) Diet effective now Question Answer Comment Diet type Carbohydrate Controlled Calorie / CHO Amount: Carb choice 1800 robert Restrictions: 2 gm Sodium 09/05/24 1118 Nutrition Medications This patient does not have an active medication from one of the medication groupers. NUTRITION RISK: Low, in 8-10 days Next Date for Nutrition Services Follow Up: 09/15/24 Current Nutrition: Dietary Orders (From admission, onward) Start Ordered 08/26/24 1310 Adult Diet Carbohydrate Controlled; Carb choice 1800 robert (Cardiovascular Surgery) Diet effective now Question Answer Comment Diet type Carbohydrate Controlled Calorie / CHO Amount: Carb choice 1800 robert 08/26/24 1310 Parenteral Orders (720h ago, onward) None Percent Meals Eaten for the past 48 hrs: Percent Meals Eaten (%) 09/04/24 1200 75 09/04/24 0800 75 09/03/24 1200 50 Total nutrition meetin-75% est caloric needs and 50-75% est protein needs Communication : Per RN flowsheet documentation Nutrition Visit Information: (09/05) - RD visited patient at bedside. Patient reported her intake has been less than usual d/t hospital food being "drenched in salt." Patient wants to follow a CHO controlled/Na Restricted diet, RD to adjust. Patient reported she has noticed weight gain but as a result of fluid; UBW 180#. Denies N/V and stated that she was given a stool softener which made her have 4 BM's, low BP & SOB (09/03). Patient is usually very active, informed RD that she used to walk to work in [facility]. No other questions or concerns. RD to follow up. Anthropometrics: Height: 165.1 cm (5' 5") Weight: 87.2 kg (192 lb 3.9 oz) Weight Method: Bed scale Body mass index is 31.99 kg/m?. Phenix body weight: 57 kg (125 lb 10.6 oz) Adjusted ideal body weight: 69.1 kg (152 lb 4.7 oz) Weight history : 84.9 kg (08/25), 82.7 kg (2022) Estimated Nutrition Needs: Calculated Energy Needs Using Equations Height: 1.651 m (5' 5") Weight Used for Equation Calculations: 56.8 kg (125 lb 3.5 oz) Energy Equation Used: Rule of thumb (kcal/kg) Energy Lower Range: 25 (kcal/kg) Energy Upper Range: 30 (kcal/day) Energy Needs Lower Range: 1420 kcal/day (kcal/day) Energy Needs Upper Range: 1704 kcal/day Minute Ventilation (L/min): 11.2 L/min Temp: 36.7 ?C (98.1 ?F) Estimated Protein Needs (g/kg) Protein Lower Range: 1.5 (g/kg) Protein Upper Range: 2.0 (g/day) Protein Lower Range: 85 g/day (g/day) Protein Upper Range: 114 g/day Fluid Needs Fluid Needs Method: mL/kg/day (mL/kg) Fluid Needs: 30 (mL/day) Fluid Needs (Calculated): 1704 mL/day Nutrition Physical Findings per delivery director: Orientation Level: Oriented X4 O2 Delivery Method: Nasal cannula Gastrointestinal (WDL): WDL Abdomen Inspection: Soft Abdominal Tenderness: Nontender; Soft Bowel Sounds: All quadrants Bowel Sounds (All Quadrants): Active Last BM Date: 09/02/24 LUE: Full movement RUE: Full movement LLE: Full movement RLE: Full movement Edema: Right lower extremity Generalized Edema: +2 LLE Edema: +1 RLE Edema: Other (Comment) Wound 08/26/24 Surgical Proximal;Right Pretibial (Active) Wound 08/26/24 Surgical Sternum (Active) Wound 08/26/24 Surgical Right Pretibial (Active) Wound 08/26/24 Surgical Anterior;Proximal;Right Thigh (Active) Nutrition Focused Physical Exam - Muscles and Fat: Assessment of Muscle Status Date Assessed: 09/05/24 Muscle Status: No deficits noted Assessment of Fat Status Date Assessed: 09/05/24 Fat Status: No deficits noted Basic Information: Admitting diagnosis: Atherosclerotic heart disease of hoopa coronary artery without angina pectoris [I25.10] 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 Had 2 episodes of decreased responsiveness on POD #1. Carotid ultrasound showed no hemodynamically significant stenosis, and echocardiogram shows ejection fraction of 45%. C/W current supportive care Post op management as per [facility]-chest tube removed 09/02, noticed previous chest tube site bleeding, hold SQH, follow up CT chest Continues to remain hemodynamically stable off pressors Continue with ASA, plavix, statin Acute post-operative pain Multimodal pain regimen, muscle relaxants, bowel regimen Diabetes mellitus, type 2 (HCC) Will continue insulin glargine 30 unit, pre meal insulin, insulin sliding scale, accuheck Primary hypertension Has been weaned off pressors Will consider initiation of low-dose beta-blockers when blood pressure feasible Ischemic cardiomyopathy C/w medical management Echo shows EF of 45%, aim to maintain euvolemic status On lasix 40 mg daily Acute blood loss anemia (ABLA) Secondary to intra op blood loss. Will continue to monitor and transfuse as needed. Will transfuse one unit PRBC, will give extra dose lasix after transfusion, Macular degeneration Continue with eye drops as appropriate Cardiogenic shock (HCC) Resolved and stable Superficial vein thrombosis right proximal greater saphenous vein Supportive with leg elevation and warm compression Current Diet: Adult Diet Carbohydrate Controlled; Carb choice 1800 robert VTE Prophylaxis heparin - 5000 units/mL Health Status: No Known Allergies Current Facility-Administered Medications: acetaminophen (Tylenol) tablet 1,000 mg, 1,000 mg, Oral, q8h DANTE, Ced Carlton MD, 1,000 mg at 09/05/24 0540 albumin human 5 % IV soln 25 g, 25 g, Intravenous, Once, Marci Faye MD aspirin EC EC tablet 81 mg, 81 mg, Oral, Daily, Ana María Gonzalez NP, 81 mg at 09/05/24 0940 brimonidine (AlphaGAN) 0.2 % ophthalmic solution 1 drop, 1 drop, Both Eyes, BID, Elke Angeles NP, 1 drop at 09/05/24 0946 clopidogrel (Plavix) tablet 75 mg, 75 mg, Oral, Daily, Maurice Wesley MD, 75 mg at 09/05/24 0941 dextrose 50 % solution 12.5 g, 12.5 g, Intravenous, PRN, Elke Angeles, STRAIGHT RULING MACHINE OPERATOR dextrose 50 % solution 25 g, 25 g, Intravenous, PRN, Elke Angeles, STRAIGHT RULING MACHINE OPERATOR docusate sodium (Colace) capsule 100 mg, 100 mg, Oral, BID PRN, Elke Angeles STRAIGHT RULING MACHINE OPERATOR furosemide (Lasix) tablet 40 mg, 40 mg, Oral, Daily, Bibiana Narayan NP, 40 mg at 09/05/24 0940 glucagon injection 1 mg, 1 mg, Intramuscular, PRN, Elke Angeles NP [Held by provider] heparin injection 5,000 Units, 5,000 Units, Subcutaneous, q8h, Ced Carlton MD, 5,000 Units at 09/04/24 0503 hydrALAZINE (Apresoline) tablet 10 mg, 10 mg, Oral, q8h PRN, Oliva Love MD, 10 mg at 09/05/24 0048 [Held by provider] HYDROmorphone PF (Dilaudid) injection 0.5 mg, 0.5 mg, Intravenous, q4h PRN, GAEL Taylor insulin glargine (Lantus) injection 30 Units, 30 Units, Subcutaneous, Daily, Elke Bridgtete, STRAIGHT RULING MACHINE OPERATOR, 30 Units at 09/05/24 0940 insulin lispro (HumaLOG, Admelog) injection 4-16 Units, 4-16 Units, Subcutaneous, TID PRN, Elke Bridgette, STRAIGHT RULING MACHINE OPERATOR, 12 Units at 09/04/24 1834 insulin lispro (Humalog, Admelog) injection 7 Units, 7 Units, Subcutaneous, TID AC, Elke Bridgette, STRAIGHT RULING MACHINE OPERATOR, 7 Units at 09/05/24 0939 latanoprost (Xalatan) 0.005 % ophthalmic solution 1 drop, 1 drop, Both Eyes, Nightly, Elke Bridgette, STRAIGHT RULING MACHINE OPERATOR, 1 drop at 09/04/24 211 lidocaine (Xylocaine) 2 % mouth solution 15 mL, 15 mL, Swish & Spit, q4h PRN, Alvaro Michel MD, 15 mL at 08/29/24 2300 melatonin tablet 5 mg, 5 mg, Oral, Nightly PRN, Letha Anton NP, 5 mg at 09/04/24 2340 methocarbamol (Robaxin) tablet 750 mg, 750 mg, Oral, q8h, Ana María Gonzalez NP, 750 mg at 09/05/24 0941 oxyCODONE (Roxicodone) immediate release tablet 10 mg, 10 mg, Oral, q6h PRN, Ana María Gonzalez NP, 10 mg at 09/03/24 0529 oxyCODONE (Roxicodone) immediate release tablet 5 mg, 5 mg, Oral, q6h PRN, Oliva Cyr MD, 5 mg at 09/01/24 0445 pantoprazole (ProtoNix) EC tablet 40 mg, 40 mg, Oral, Daily before breakfast, Oliva Love MD, 40 mg at 09/05/24 0941 polyethylene glycol (PEG) 3350 (Miralax) packet 17 g, 17 g, Oral, Daily PRN, Elke Angeles NP polyethylene glycol (PEG) 3350 (Miralax) packet 17 g, 17 g, Oral, Daily, Ced Carlton MD, 17 g at 09/01/24 1007 potassium chloride CR (Klor-Con M20) ER tablet 20 mEq, 20 mEq, Oral, Daily, Bibiana Narayan NP, 20 mEq at 09/05/24 0941 rosuvastatin (Crestor) tablet 20 mg, 20 mg, Oral, Nightly, Samira Mcknight MD, 20 mg at 09/04/24 2118 sennosides (Senokot) tablet 17.2 mg, 2 tablet, Oral, BID, Ana María Gonzalez NP, 17.2 mg at 09/02/24 1701 sodium chloride 0.9 % infusion 250 mL, 250 mL, Intravenous, PRN, Annie Ledezma MD timolol (Timoptic) 0.25 % ophthalmic solution 1 drop, 1 drop, Both Eyes, BID, GAEL Taylor, 1 drop at 09/05/24 0945 History: Past medical history: Past Medical History: Diagnosis Date Coronary artery disease Diabetes mellitus (HCC) Heart disease Hypertension Hypotension Peripheral artery disease (HCC) Food Insecurity: No Food Insecurity (08/28/2024) Hunger Vital Sign Worried About Running Out of Food in the Last Year: Never true Ran Out of Food in the Last Year: Never true Review / Management: LABS 72 HRS: POC Sodium Lvl Date/Time Value Ref Range Status 08/27/2024 07:38 AM 147 (H) 135 - 145 mEq/L Final Sodium Lvl Date/Time Value Ref Range Status 09/05/2024 06:07 AM 138 136 - 145 mEq/L Final POC Potassium Lvl Date/Time Value Ref Range Status 08/27/2024 07:38 AM 3.6 3.5 - 5.1 mEq/L Final Potassium Lvl Date/Time Value Ref Range Status 09/05/2024 06:07 AM 3.8 3.4 - 4.5 mEq/L Final Magnesium Date/Time Value Ref Range Status 09/04/2024 05:17 AM 1.91 1.6 - 2.60 mg/dL Final Phosphorus Lvl Date/Time Value Ref Range Status 09/04/2024 05:17 AM 2.9 2.4 - 5.1 mg/dL Final Albumin Lvl Date/Time Value Ref Range Status 08/26/2024 12:59 PM 3.0 (L) 3.4 - 5.0 g/dL Final POC V Glu Date/Time Value Ref Range Status 08/26/2024 10:48 AM 130 (H) 70 - 99 mg/dL Final POC A Glu Date/Time Value Ref Range Status 08/26/2024 12:07 PM 130 (H) 70 - 99 mg/dL Final Glucose Lvl Date/Time Value Ref Range Status 09/05/2024 06:07 AM 108 (H) 70 - 99 mg/dL Final Comment: Adult reference range values reflect the clinical guidelines of the [place] [employer]. POC Glu Date/Time Value Ref Range Status 09/05/2024 05:42 AM 105 (H) 70 - 99 mg/dL Final Hgb A1C Date/Time Value Ref Range Status 08/25/2024 07:54 AM 8.32 (H) <=5.60 % Final Creatinine Lvl Date/Time Value Ref Range Status 09/05/2024 06:07 AM 0.64 0.55 - 1.02 mg/dL Final BUN Date/Time Value Ref Range Status 09/05/2024 06:07 AM 11 9 - 23 mg/dL Final Calcium Lvl Date/Time Value Ref Range Status 09/05/2024 06:07 AM 8.5 8.3 - 10.6 mg/dL Final I/O 24 HRS: Intake/Output Summary (Last 24 hours) at 09/05/2024 1122 Last data filed at 09/05/2024 0500 Gross per 24 hour Intake 640.42 ml Output 1000 ml Net -359.58 ml Unmeasured Stool Occurrence: 1 Monitoring and Evaluation: MONITORING AND EVALUATION: Nutrition Intake : PO intake and tolerance GOAL: >75% of estimated needs met. Kevin Henley MS, LILLI, LD Office extension: [phone] [employer]Link: [phone] [facility] 2024-09-02 11:00:00 Buddhist Volunteer Visit Fernando Li visited, prayed, and offered the patient Communion [facility] 2024-08-29 12:06:28 Spiritual Care Subjective Reason For Visit Care Recipient: Patient and family together Time spent: 15 minutes Reason for Visit: Rounds visit, Initial visit Interventions Relationship Building Interventions: Cultivated a relationship of care and support, Provided compassionate presence Exploration Interventions: Explored goals of care Empowerment Interventions: Provided cilnical scientist education Ritual Interventions: Provided prayer Plan Follow-up: No follow-up warranted at this time [facility] 2024-08-26 19:43:01 Spiritual Care Subjective Family was calm, peaceful and hopeful. Patient was up and talking with family at bedside. Family asked for prayer which Residence Leasing Agent offered with word of encouragement and hope. Gratitude was expressed. Reason For Visit Care Recipient: Patient and family together Time spent: 30 minutes Reason for Visit: Code/Rapid response (Blue) Interventions Relationship Building Interventions: Cultivated a relationship of care and support, Provided compassionate presence Exploration Interventions: Explored spiritual needs and resources Ritual Interventions: Provided prayer Outcomes Expressed: Acceptance, Gratitude, Trust Expressed gratitude: Observed Expressed trust: Observed Assessment Spiritual Resources: Gratitude, Deon/trust, Spiritual practice, Peace Emotional Resources: Acceptance, Calm, Optimism Relational Resources: Family Plan Follow-up: No follow-up warranted at this time [facility] 2024-08-26 18:47:34 Associated Order(s): IP CONSULT TO CARDIOLOGY Images from the original note were not included. Cardiology Consultation Note ADMISSION DATE: 08/26/2024 CONSULT DATE: 08/26/24 REASON FOR CONSULT: Post CABG REQUESTING PROVIDER: Kaveh Ortega MD CONSULTING PROVIDER: Cisco Ruiz Jr., MD, Interventional Cardiology HISTORY OF PRESENT ILLNESS: Deepthi Moore is a 68 y.o. female who was admitted to the hospital for CABG. I cathed the pt after referral from Gerardo Breaux for CP, abnormal stress test, EF 45-50%. PMH - DM, HTN, HLP. Objective Review of System: Constitutional: Negative or as per HPI Eyes: Negative or as per HPI ENT: Negative or as per HPI Respiratory: Negative or as per HPI Cardiovascular: Negative or as per HPI Gastrointestinal: Negative or as per HPI Genitourinary: Negative or as per HPI Integumentary/Breast: Negative or as per HPI Hematologic/Lymphatic: Negative or as per HPI Musculoskeletal: Negative or as per HPI Neurological: Negative or as per HPI Behavioral/Psych: Negative or as per HPI Endocrine: Negative or as per HPI Allergic/Immunologic: Negative or as per HPI Past Medical History: Diagnosis Date Coronary artery disease Diabetes mellitus (HCC) Heart disease Hypertension Hypotension Peripheral artery disease (HCC) Past Surgical History: Procedure Laterality Date CATARACT EXTRACTION 2009 and 2012 RETINAL DETACHMENT SURGERY Right 2014 Social History Tobacco Use Smoking status: Never Passive exposure: Never Smokeless tobacco: Never Vaping Use Vaping status: Never Used Substance Use Topics Alcohol use: Yes Comment: 1-2 per year Drug use: Never Family History: Problem Relation Name Age of Onset Heart disease Mother Stroke Mother Diabetes Sister No Known Allergies MEDICATIONS: acetaminophen, 1,000 mg, Oral, q6h artificial tears, 1 Application, Both Eyes, q6h DANTE [START ON 08/27/2024] aspirin EC, 81 mg, Oral, Daily ceFAZolin, 2 g, Intravenous, q8h chlorhexidine, 15 mL, Mouth/Throat, 4x daily methocarbamol, 750 mg, Oral, q8h mupirocin, 1 Application, Nasal, BID rosuvastatin, 5 mg, Oral, Nightly [START ON 08/27/2024] timolol, 1 drop, Both Eyes, BID vancomycin, , , EPINEPHrine, 1-35 mcg/min, Last Rate: 2 mcg/min (08/26/24 1525) insulin regular, 0-35 Units/hr, Last Rate: 6.7 Units/hr (08/26/24 1806) norepinephrine, 5-70 mcg/min, Last Rate: 2 mcg/min (08/26/24 1503) VITALS: Visit Vitals BP (!) 125/57 Pulse 93 Temp 36.7 ?C (98 ?F) Resp (!) 37 Ht 1.651 m (5' 5") Wt 83.7 kg (184 lb 8.4 oz) SpO2 100% BMI 30.71 kg/m? OB Status Postmenopausal Smoking Status Never BSA 1.96 m? INTAKE/OUTPUT: Intake/Output Summary (Last 24 hours) at 08/26/2024 1847 Last data filed at 08/26/2024 1800 Gross per 24 hour Intake 3339.88 ml Output 2195 ml Net 1144.88 ml No intake/output data recorded. PHYSICAL EXAM: General Appearance: Alert, cooperative, no distress, appears stated age Head: Normocephalic, without obvious abnormality, atraumatic Eyes: EOMI, No pallor Neck: No carotid bruits or JVP elevation. Heart: RRR, III/ HSM LLSB, +S4 Chest wall: No tenderness or deformity Lungs: Clear to auscultation bilaterally, respirations unlabored Abdomen: Soft, non-tender, non-distended, no masses, no organomegaly Extremities: Normal, no edema Pulses: 2+ dorsalis pedis and posterior tibialis bilaterally Skin: Skin color, texture, turgor normal, no rashes or lesions Neurologic: Grossly intact LABS/IMAGING: Results from last 7 days Lab Units 08/26/24 1805 08/26/24 1718 08/26/24 1630 08/26/24 1358 08/26/24 1259 08/26/24 1207 08/26/24 0736 08/25/24 0754 08/25/24 0754 POC SODIUM, VENOUS -- -- -- -- -- -- < > -- -- POC SODIUM, ARTERIAL mEq/L -- -- -- -- -- 140 < > -- -- SODIUM mEq/L -- -- 149* -- 146* -- -- -- 141 POC POTASSIUM, VENOUS -- -- -- -- -- -- < > -- -- POC POTASSIUM, ARTERIAL mEq/L -- -- -- -- -- 3.1* < > -- -- POTASSIUM mEq/L -- -- 3.3* | 3.3* -- 3.1* -- -- -- 4.2 POC CHLORIDE, VENOUS -- -- -- -- -- -- < > -- -- POC CHLORIDE mEq/L -- -- -- -- -- 111* < > -- -- CHLORIDE mEq/L -- -- 110* -- 111* -- -- -- 107 CO2 mEq/L -- -- 26.7 -- 24.6 -- -- -- 30.4 BUN mg/dL -- -- 14 -- 12 -- -- -- 10 CREATININE mg/dL -- -- 0.72 -- 0.68 -- -- -- 0.90 POC GLUCOSE, VENOUS -- -- -- -- -- -- < > -- -- POC GLUCOSE, ARTERIAL mg/dL -- -- -- -- -- 130* < > -- -- GLUCOSE mg/dL -- -- 207* -- 156* -- -- -- 179* POC GLUCOSE mg/dL 195* < > -- < > -- -- < > -- -- CALCIUM mg/dL -- -- 7.9* -- 8.2* -- -- -- 8.8 MAGNESIUM mg/dL -- -- 2.10 -- 2.69* -- -- < > -- PHOSPHORUS mg/dL -- -- 4.4 -- 4.2 -- -- -- -- < > = values in this interval not displayed. Results from last 7 days Lab Units 08/26/24 1259 ALT U/L 8 AST U/L 51* ALBUMIN g/dL 3.0* ALK PHOS U/L 57 Results from last 7 days Lab Units 08/26/24 1630 08/26/24 1318 08/26/24 1311 08/26/24 1207 08/26/24 1142 08/26/24 1128 08/26/24 1113 08/26/24 1048 08/26/24 0900 08/25/24 0754 WBC 10*3/uL 13.40* -- 20.66* -- -- -- -- -- -- 8.58 POC HEMOGLOBIN, VENOUS g/dL -- -- -- -- -- -- -- 7.7* -- -- HEMOGLOBIN g/dL 9.7* -- 10.5* -- -- -- -- -- -- 11.9 POC HEMATOCRIT, ARTERIAL (CALC) % -- -- -- 27.0* < > -- < > -- < > -- POC HEMATOCRIT, VENOUS (CALC) % -- -- -- -- -- -- -- 23.0* -- -- HEMATOCRIT % 29.6* -- 31.8* -- -- -- -- -- -- 37.8 PLATELETS 10*3/uL 159* -- 159* -- -- 127* -- -- -- 168* PLATELETS ESTIMATED -- -- Normal -- -- -- -- -- -- -- INR -- 1.49* -- -- -- 2.38* -- -- -- 1.26* < > = values in this interval not displayed. No lab exists for component: "TROPTHS", "PROBNPNTERM" ECHOCARDIOGRAM: No results found for this or any previous visit. EKG: Results for orders placed or performed in visit on 08/25/24 Electrocardiogram, 12-lead Collection Time: 08/25/24 8:35 AM Result Value Ref Range Ventricular Rate 62 BPM Atrial Rate 62 BPM AR Interval 158 ms QRS Duration 110 ms QT/QTc 466 ms QTc Calculation 472 ms P-Speedwell 72 degrees R-Speedwell 70 degrees T-Speedwell 147 degrees Patient Active Problem List Diagnosis 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 Diabetes mellitus, type 2 (HCC) ASSESSMENT/ RECOMMENDATIONS: S.P CABG x 4 - HELM, SBG to D1. OM, RCA - severe LM, LAD ds, occluded RCA w collaterals - hemodynamics stable. Will follow 2. Diabetes Kaveh Ortega MD thank you for allowing me to participate in the care of . I will continue to follow with you with additional recommendations. Cisco Ruiz Jr., MD [employer] [facility] History and Physical Notes Date/Time Note Provider Source 2024-09-22 11:21:26 Images from the original note were not included. History Of Present Illness Patient ID: Deepthi Moore is a 68 y.o. female with PMH CAD s/p CABGx4, insulin-dependent T2DM, hypertension, HFrEF (EF 40-45% 08/28/24), HLD, and PAD who was admitted to [facility] hospital from 08/26/24 to 09/06/24 for CABGx4 and then discharged to [place] for SNF care. She was re-admitted to [facility] from 09/14/24 to 09/20/24 due to E. Coli septicemia and discharged again to [place]. Hospital Course: Deepthi Moore is a 68 y.o. female with PMH CAD s/p CABGx4, insulin-dependent T2DM, hypertension, HLD, and PAD who presented with symptomatic angina and a positive stress test leading to LH catheterization and CABG x4 with right great saphenous vein graft. She was monitored in the CV ICU intubated on pressors in cardiogenic shock for a few days then transferred to the CV IMU. Echocardiogram was performed on 08/28/24 which showed reduced ejection fraction of 40-45%. Her chest tube was removed 09/02. She was deemed stable for transfer to nursing home facility on 09/06/24 for further rehabilitation, however, she developed signs of sepsis and was readmitted at [facility] for E. Coli septicemia. She was re-transferred to nursing home facility on 09/20/24. Code Status: Full code Medical Power of Box Coverer Hand: Her son, pending official documentation Living Situation: Patient lives alone in a 2nd story apartment. She was fully functional with all IADLs/ADLs prior to hospitalization. She has a who lives separately from her in [place] and is able to help her during this time. Today: Patient has adequate appetite, stooling, and voiding. Per PT/OT, she is taking steps on the stairs and walking >100 feet without assistance. Past Medical History She has a past medical history of Coronary artery disease, Diabetes mellitus (HCC), Heart disease, Hyperlipidemia (09/07/2024), Hypertension, Hypotension, and Peripheral artery disease (HCC). Surgical History She has a past surgical history that includes Cataract extraction and Retinal detachment surgery (Right, 2013). Family History Family History: Problem Relation Name Age of Onset Heart disease Mother Stroke Mother Diabetes Sister Social History She reports that she has never smoked. She has never been exposed to tobacco smoke. She has never used smokeless tobacco. She reports current alcohol use. She reports that she does not use drugs. Allergies Penicillins Medications Medications Prior to Admission Medication Sig Dispense Refill Last Dose/Taking acetaminophen (Tylenol) 325 MG tablet Take 2 tablets by mouth every 4 hours if needed for mild pain (1-3) for up to 10 days. aspirin EC 81 MG EC tablet Take 81 mg by mouth 1 time each day. brimonidine (AlphaGAN P) 0.2 % ophthalmic solution carvedilol (Coreg) 3.125 MG tablet Take 1 tablet by mouth in the morning and 1 tablet in the evening. Take with meals. 60 tablet 0 clopidogrel (Plavix) 75 MG tablet Take 1 tablet by mouth 1 time each day. 30 tablet 0 furosemide (Lasix) 40 MG tablet Take 1 tablet by mouth 1 time each day. 30 tablet 0 guaiFENesin (Robitussin) 100 MG/5ML liquid Take 10 mL by mouth 4 times a day as needed for cough for up to 10 days. heparin 5000 units/mL injection Inject 1 mL under the skin in the morning and 1 mL in the evening. Do all this for 10 days. insulin glargine (Basaglar KwikPen) 100 UNIT/ML pen Inject 40 Units under the skin in the morning and 40 Units in the evening. insulin lispro (HumaLOG, Admelog) 100 unit/ml injection Inject 4-16 Units under the skin 3 times a day as needed for high blood sugar (with meals). See After Visit Summary for instructions on how to take your insulin. ipratropium-albuterol (Duo-Neb) 0.5-2.5 mg/3 mL nebulizer solution Take 3 mL by nebulization every 4 hours if needed for wheezing or shortness of breath. latanoprost (Xalatan) 0.005 % ophthalmic solution Administer 1 drop into both eyes at bedtime. levoFLOXacin (Levaquin) 750 MG tablet Take 1 tablet by mouth 1 time each day for 9 days. methocarbamol (Robaxin) 750 MG tablet Take 1 tablet by mouth in the morning and 1 tablet at noon and 1 tablet before bedtime. Do all this for 10 days. 30 tablet 0 potassium chloride CR (Klor-Con M20) 20 MEQ ER tablet Take 1 tablet by mouth 1 time each day. Do not crush or chew. 30 tablet 0 rosuvastatin (Crestor) 20 MG tablet Take 1 tablet by mouth at bedtime. 30 tablet 0 sennosides (Senokot) 8.6 MG tablet Take 2 tablets by mouth in the morning and 2 tablets in the evening. 120 tablet 0 timolol (Timoptic) 0.5 % ophthalmic solution Administer 1 drop into both eyes in the morning and 1 drop in the evening. Review of Systems Constitutional: Negative for chills and fever. Respiratory: Positive for cough. Negative for shortness of breath and wheezing. Cardiovascular: Positive for leg swelling. Negative for chest pain and palpitations. Gastrointestinal: Negative for abdominal pain. Genitourinary: Negative for decreased urine volume, difficulty urinating, dysuria and hematuria. Skin: Positive for wound (Wound present on R lower calf, sternotomy, R groin, and mid-lower chest). Negative for color change and rash. Physical Exam: Constitutional: Appearance: Normal appearance. HENT: Head: Normocephalic and atraumatic. Right Ear: External ear normal. Left Ear: External ear normal. Nose: Nose normal. Mouth/Throat: Mouth: Mucous membranes are moist. Eyes: Extraocular Movements: Extraocular movements intact. Conjunctiva/sclera: Conjunctivae normal. Cardiovascular: Rate and Rhythm: Normal rate and regular rhythm. Heart sounds: No murmur heard. Pulmonary: Effort: Pulmonary effort is normal. Breath sounds: Examination of the left-lower field reveals decreased breath sounds. Decreased breath sounds present. No wheezing. Abdominal: General: Abdomen is flat. Palpations: Abdomen is soft. Tenderness: There is no abdominal tenderness. Musculoskeletal: General: Normal range of motion. Cervical back: Normal range of motion. Right lower leg: Edema (2+ mid calf) present. Left lower leg: Edema (1+ mid calf) present. Skin: General: Skin is warm and dry. Findings: Wound (R lower leg wound with soaked dressing with dried blood but not active bleeding, R groin wound, sternotomy, and lower chest wound) present. Neurological: General: No focal deficit present. Mental Status: She is alert and oriented to person, place, and time. Psychiatric: Mood and Affect: Mood normal. Behavior: Behavior normal. R lower leg wound Right groin wound Lower chest wound Last Recorded Vitals Blood pressure 136/70, pulse 83, temperature 36.4 ?C (97.5 ?F), temperature source Temporal, resp. rate 20, height 1.65 m (5' 4.96"), weight 78.7 kg (173 lb 9.6 oz), SpO2 96%. Body mass index is 28.92 kg/m?. Assessment & Plan History of E. coli septicemia Complicated urinary tract infection Asymptomatic and VSS S/p IV cefepime, cefazolin, ceftriaxone, and doxycycline Continue Levofloxacin 750 mg daily, day 08/07 (end 09/29/24) ID follow-up oupt with Dr. 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 Hyperlipidemia 08/26/24 S/p CABG x4 with HELM to the LAD, Reversed saphenous vein graft from the aorta to the first diagonal and the OM, Reversed saphenous vein graft from the aorta to the PDA (RCA), Exclusion of the left atrial appendage with an AtriClip on 08/28/24 Carotid U/S showed no significant stenosis 08/29/24 Echocardiogram showed reduced EF of 40-45% Continue aspirin, plavix, and statin Sternotomy incision c/d/I Lower chest wound c/d, use non-adherent strips Change border dressing daily on lower chest wound and R groin wound Right surgical wound, apply Calcium alginate with silver and cover with border dressing daily Pain regimen: Tylenol 650 mg q8h, robaxin 750 mg TID PT/OT Repeat BMP 09/25 ordered Acute combined systolic (congestive) and diastolic (congestive) heart failure 08/29/24 Echocardiogram showed reduced EF of 40-45% Repeat echo outpt with cardiology follow-up GDMT: On BB, carvedilol. Consider SGLT2, DANILO, and MRA outpatient Lasix 40 mg PO daily Repeat BMP 09/25 ordered Type 2 diabetes mellitus with hyperglycemia, with long-term current use of insulin (HCC) Blood sugars still not at goal Increase lantus to 42 units BID Medium SSI Essential (primary) hypertension Continue BB Consider DANILO Normocytic anemia Anemia of chronic disease vs acute blood loss anemia 09/19/24: Hgb 9.8, MCV 83.8 Repeat CBC 09/25 ordered Open-angle glaucoma Continue brimonidine, timolol, and latanoprost Current Diet: Adult Diet Regular; 4 gm Sodium, No concentrated sweets Plan for DC: pending PT/OT DME: TBD Home Health: TBD Activity: TBD PCP Follow-up: TBD Additional Follow-ups: TBD DME available: None Patient and plan discussed with attending physician Dr. Lizabeth Vaughan MD PGY-2, [facility] [place] MSO #[id number] Cosigned by Maricel Barone MD at 09/24/2024 6:56 PM CDT Associated attestation - Maricel Barone MD - 09/24/2024 6:56 PM CDT I saw and evaluated the patient, participating in the doty portions of the service. I reviewed the resident's note. I agree with the resident's findings and plan. [facility] 2024-09-14 05:23:14 Chief Complaint Patient presents with Fever Patient from [place]; Fever of 102.4F oral; Patient had cardiac Sx Aug 26 History Of Present Illness Deepthi Moore is a 68 y.o. female with past medical history significant for multivessel CAD s/p recent CABG x 4 on 08/26, type II DM, HTN, PAD presented to ED for evaluation of fever and shortness of breath that she first noticed yesterday afternoon. Patient states she has some baseline shortness of breath since her surgery which got worse after she developed fever. She denies any urinary tract symptoms including urinary frequency or urgency or dysuria. Patient states she was intolerant to Invokana in the past and she thinks her symptoms started after Farxiga was initiated 2 days ago. She was started on Bactrim yesterday at the nursing facility due to concerns of UTI with sepsis. She has been rehabbing at her nursing facility after her recent CABG. She has been making overall good progress and is ambulatory. Patient states she was given one Bactrim for UTI at the care home last night before she was sent to ER for further evaluation. She has been taking Tylenol for back pain and that will helped with the fever. She was febrile and tachypneic on initial arrival blood pressure was stable. And she was not hypoxic. Blood work showed elevated procalcitonin 10.80. D-dimer was elevated however CT chest angio was negative for PE. Baseline troponin was 562. EKG was concerning for ischemia blood work showed hyperglycemia, elevated creatinine and BUN. Lactic acid 2.40. UA showed pyuria. CBC showed leukocytosis. CTA chest showed no evidence of pulmonary embolism. It showed trace left pleural effusion and dense atelectasis improved from 09/04/2024. It showed stable mild cardiomegaly and small pericardial effusion. BNP was elevated. Cardiology and Dr. Purvis were consulted by ED and patient was started on heparin infusion for NSTEMI she also received cefepime and vancomycin Past Medical History She has a past medical history of Coronary artery disease, Diabetes mellitus (HCC), Heart disease, Hypertension, Hypotension, and Peripheral artery disease (HCC). Surgical History She has a past surgical history that includes Cataract extraction and Retinal detachment surgery (Right, 2013). Family History Family History[1] Social History She reports that she has never smoked. She has never been exposed to tobacco smoke. She has never used smokeless tobacco. She reports current alcohol use. She reports that she does not use drugs. Allergies Penicillins Medications Prescriptions Prior to Admission[2] Review of Systems CONSTITUTIONAL: + Fever EYES: Denies eye pain ENT: Denies rhinorrhea,sore throat RESPIRATORY: Denies cough. CARDIOVASCULAR: Denies chest pain, palpitations and leg swelling. GASTROINTESTINAL: Denies nausea,vomiting,abdominal pain,diarrhoea and constipation. GENITOURINARY: Denies dysuria and gross hematuria NEUROLOGIC: Denies headache,dizziness and focal weakness PSYCHIATRIC: Denies behavioral change SKIN: Denies rash HEME: Denies bruising ENDOCRINE: Denies polyuria Physical Exam: General Appearance: resting comfortably,no acute distress HEENT: no scleral icterus, oral mucosa moist Chest Wall: no retractions Lungs: Nonlabored breathing pattern, bilateral diminished breath sounds at lung bases. Heart: Regular rate and rhythm Abdomen: soft,non tender,non distended Extremeties: no pedal edema Skin: CABG incision healing well does not look infected. Right lower extremity harvest incision site looks well without infection. Neurologic: Alert ,awake and oriented x 3.clear speech,no facial droop,moves all four extremities equally sponatenously antigravity. Psych: coherent,mood appropriate Last Recorded Vitals Blood pressure 144/64, pulse 93, temperature (!) 38.2 ?C (100.8 ?F), temperature source Oral, resp. rate (!) 24, height 1.651 m (5' 5"), weight 80.1 kg (176 lb 9.4 oz), SpO2 98%. Relevant Results Labs Reviewed BASIC METABOLIC PANEL - Abnormal Result Value Glucose Lvl 225 (*) BUN 26 (*) Creatinine Lvl 1.16 (*) Sodium Lvl 133 (*) Potassium Lvl 3.9 Chloride Lvl 98 CO2 Lvl 22.5 Anion Gap 16.4 Calcium Lvl 9.5 eGFR 51 (*) B-TYPE NATRIURETIC PEPTIDE - Abnormal Natriuretic Peptide B 1,061 (*) HEPATIC FUNCTION PANEL - Abnormal Protein 8.0 Albumin Lvl 3.7 Bilirubin Total 1.58 (*) Bilirubin Direct 0.8 (*) Bilirubin Indirect 0.8 Alkaline Phosphatase 148 (*) AST 41 (*) ALT 9 Globulin, Calc 4.3 (*) Albumin/Globulin Ratio 0.86 LACTIC ACID LEVEL - Abnormal Lactic Acid Lvl 2.40 (*) LIPASE LEVEL - Abnormal Lipase Lvl 79 (*) PROCALCITONIN LEVEL - Abnormal Procalcitonin 10.80 (*) UA WITH CULTURE IF INDICATED - Abnormal UA Color Yellow UA Turbidity Moderate (*) UA Spec Grav >=1.050 (*) UA pH 5.0 UA Protein 100 (*) UA Glucose 500 (*) UA Ketones Trace (*) UA Bilirubin Negative UA Blood Moderate (*) UA Urobilinogen <=1.0 UA Nitrite Negative UA Leuk Esterase Large (*) UA Ascorbic Acid Negative UA Sq Epi Many (*) UA WBC >182 (*) UA RBC (Num) 14 (*) UA Bacteria Moderate (*) UA Mucus Few TROPONIN I HIGH SENSITIVITY CARESET (BASELINE) - Abnormal HS Troponin I Baseline 562 (*) COMPLETE BLOOD COUNT - Abnormal WBC 11.98 (*) RBC 4.23 NRBC % 0.0 Hgb 10.9 Hct 34.5 MCV 81.6 MCH 25.8 MCHC 31.6 RDW - SD 67.7 (*) Plt Count 226 MPV 9.0 TROPONIN I HIGH SENSITIVITY CARESET (1ST HR) - Abnormal HS Troponin I 1 Hour 544 (*) HS Troponin I 0 to 1 Hour Delta -18 MANUAL DIFFERENTIAL - Abnormal Segs % Man 72 (*) Lymphs % Man 8 (*) Monos % Man 4 Eos % Man 1 Segs # Man 8.63 (*) Lymphs # Man 0.96 (*) Monos # Man 0.48 Eos # Man 0.12 Bands % Man 14 (*) Metamyelocytes % Man 1 Plt Morph Normal Toxic Gran Present (*) Neut Vac Present (*) COMPLETE BLOOD COUNT - Abnormal WBC 17.43 (*) RBC 3.99 NRBC % 0.0 Hgb 10.2 (*) Hct 32.6 (*) MCV 81.7 MCH 25.6 MCHC 31.3 RDW - SD 68.7 (*) Plt Count 220 MPV 10.0 INFLUENZA A/B ANTIGENS - Normal Influenza A Ag Negative Influenza B Ag Negative CREATINE KINASE (CK TOTAL) - Normal CK Total 51 BLOOD CULTURE BLOOD CULTURE URINE CULTURE BLOOD GAS, VENOUS Temp Milton 37.0 pH Milton 7.40 PCO2 Milton 39 PO2 Milton 33 HCO3 Milton 24.2 BE Milton -1 O2 Sat Milton 63.6 COMPLETE BLOOD COUNT W/DIFF AND PLATELET Narrative: The following orders were created for panel order Complete Blood Count w/Diff and Platelet. Procedure Abnormality Status --------- ------ Complete Blood Count[[id number]] Abnormal Final result Automated Differential[[id number]] Final result Please view results for these tests on the individual orders. D-DIMER, QUANTITATIVE D-Dimer 5.35 TROPONIN I HIGH SENSITIVITY CARESET Narrative: The following orders were created for panel order Troponin I High Sensitivity Careset. Procedure Abnormality Status --------- ------ Troponin I High Sensitiv...[[id number]] Abnormal Final result Troponin I High Sensitiv...[[id number]] Abnormal Final result Please view results for these tests on the individual orders. AUTOMATED DIFFERENTIAL Narrative: See Manual Differential REFLEX MAN DIFF AND MORPH - DO NOT ORDER CORONAVIRUS (COVID-19) DMITRY PTT PROTIME-INR COMPLETE BLOOD COUNT W/DIFF AND PLATELET Narrative: The following orders were created for panel order Complete Blood Count w/Diff and Platelet. Procedure Abnormality Status --------- ------ Complete Blood Count[[id number]] Abnormal Preliminary result Automated Differential[[id number]] In process Please view results for these tests on the individual orders. AUTOMATED DIFFERENTIAL CT angiogram chest pulmonary embolism Final Result No evidence of pulmonary embolism. Trace left pleural effusion and dense atelectasis, improved from 09/04/2024. Stable mild cardiomegaly and small pericardial effusion including fluid in the superior pericardial recess. Electronically signed by: Ksenia Morales MD 09/14/2024 03:51 AM [facility] RP XR chest 1 view Final Result Impression: Stable chest/no change. Electronically signed by: Johnathon Latif MD 09/14/2024 03:06 AM [facility] RP Assessment & Plan Acute non-ST elevation myocardial infarction (NSTEMI) (CMS/HCC) ([facility]) IV heparin Continue aspirin Plavix statin Keeping her n.p.o. 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 S/p CABG 08/26 Diabetes mellitus, type 2 ([facility]) Insulin sliding scale Ischemic cardiomyopathy EF 40 to 45%, grade 2 diastolic dysfunction of the left ventricle. On last echo 08/29/2024 Hyperlipidemia Continue statin S/P CABG x 4 UTI (urinary tract infection) Discontinue Farxiga Await urine cultures Continue cefepime and vancomycin 1 dose of each was administered in ED Sepsis ([facility]) Likely secondary to UTI Lactic acidosis on initial lab Trend lactate Acute on chronic systolic (congestive) heart failure ([facility]) Shortness of breath secondary to volume overload BNP elevated Imaging showed improvement in left pleural effusion Chest x-ray also showed small pericardial effusion Lasix 40 IV twice daily initiated Continue GDMT with Coreg Hold Farxiga due to UTI Current Diet: No diet orders on file [1] Family History: Problem Relation Name Age of Onset Heart disease Mother Stroke Mother Diabetes Sister [2] (Not in a hospital admission) NTIVET [facility] 2024-09-08 09:37:46 Images from the original note were not included. Subjective Patient ID: Deepthi Moore is a 68 y.o. female with PMH CAD s/p CABGx4, insulin-dependent T2DM, hypertension, HFrEF (EF 40-45% 08/28/24), HLD, and PAD who was admitted to [facility] hospital from 08/26/24 to 09/06/24 for CABGx4 and then discharged to [place] for SNF care. History of Present Illness: Code Status: Full code Medical Power of Box Coverer Hand: Her son, pending official documentation Living Situation: Patient lives alone in a 2nd story apartment. She was fully functional with all IADLs/ADLs prior to hospitalization. She has a who lives separately from her in [place] and is able to help her during this time. DME available: None Hospital Course: Deepthi Moore is a 68 y.o. female with PMH CAD s/p CABGx4, insulin-dependent T2DM, hypertension, HLD, and PAD who presented with symptomatic angina and a positive stress test leading to LH catheterization and CABG x4 with right great saphenous vein graft. She was monitored in the CV ICU intubated on pressors in cardiogenic shock for a few days then transferred to the CV IMU. Echocardiogram was performed on 08/28/24 which showed reduced ejection fraction of 40-45%. Her chest tube was removed 09/02. She was deemed stable for transfer to nursing home facility on 09/06/24 for further rehabilitation. Today: - Patient is eating 100 % of meals - Patient is having bowel movements and adequate urination - For PT/OT, patient is progressing well with minimal assistance. Review of Systems Constitutional: Negative for chills and fever. Respiratory: Negative for chest tightness, shortness of breath and stridor. Cardiovascular: Positive for leg swelling. Negative for chest pain and palpitations. Genitourinary: Negative for decreased urine volume and dysuria. Skin: Positive for wound. Psychiatric/Behavioral: Negative for confusion. Objective BP 136/63 (BP Location: Right arm, Patient Position: Sitting) | Pulse 83 | Temp 36.4 ?C (97.6 ?F) (Oral) | Resp 18 | Ht 1.651 m (5' 5") | Wt 83.8 kg (184 lb 11.2 oz) | SpO2 99% | BMI 30.74 kg/m? Physical Exam: Constitutional: Appearance: Normal appearance. HENT: Head: Normocephalic and atraumatic. Right Ear: External ear normal. Left Ear: External ear normal. Nose: Nose normal. Mouth/Throat: Mouth: Mucous membranes are moist. Eyes: Extraocular Movements: Extraocular movements intact. Conjunctiva/sclera: Conjunctivae normal. Cardiovascular: Rate and Rhythm: Normal rate and regular rhythm. Heart sounds: No murmur heard. Pulmonary: Effort: Pulmonary effort is normal. Breath sounds: Normal breath sounds. Abdominal: General: Abdomen is flat. Palpations: Abdomen is soft. Tenderness: There is no abdominal tenderness. Musculoskeletal: General: Normal range of motion. Cervical back: Normal range of motion. Right lower leg: Edema present. Left lower leg: Edema present. Comments: 2+ pitting to knee bilaterally Skin: General: Skin is warm and dry. Findings: Wound (sternotomy incision c/d/i, right groin wound with fibrinous tissue, lower chest wound clean and dry, pre-tibial R incision c/d/i) present. Neurological: General: No focal deficit present. Mental Status: She is alert and oriented to person, place, and time. Psychiatric: Mood and Affect: Mood normal. Behavior: Behavior normal. Lab Results Component Value Date WBC 13.48 (H) 09/07/2024 Hgb 10.6 (L) 09/07/2024 Hct 33.8 (L) 09/07/2024 Plt Count 223 09/07/2024 Cholesterol 82 08/25/2024 Triglycerides 84 08/25/2024 HDL Cholesterol 33.5 08/25/2024 ALT 8 08/26/2024 AST 51 (H) 08/26/2024 Sodium Lvl 140 09/07/2024 Potassium Lvl 3.9 09/07/2024 Chloride Lvl 102 09/07/2024 Creatinine Lvl 0.90 09/07/2024 BUN 10 09/07/2024 CO2 Lvl 32.9 (H) 09/07/2024 TSH 3.57 09/30/2022 INR 1.57 (H) 08/29/2024 Hgb A1C 8.32 (H) 08/25/2024 Albumin, Urine 1.3 01/07/2023 Intake/Output Summary (Last 24 hours) at 09/08/2024 1312 Last data filed at 09/08/2024 1245 Gross per 24 hour Intake 1080 ml Output -- Net 1080 ml Current Medications[1] Assessment & Plan S/P CABG x 4 Hyperlipidemia 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 08/26/24 S/p CABG x4 with HELM to the LAD, Reversed saphenous vein graft from the aorta to the first diagonal and the OM, Reversed saphenous vein graft from the aorta to the PDA (RCA), Exclusion of the left atrial appendage with an AtriClip on 08/28/24 Carotid U/S showed no significant stenosis 08/29/24 Echocardiogram showed reduced EF of 40-45% Continue aspirin, plavix, and statin Sternotomy incision c/d/I Lower chest wound c/d, use non-adherent strips Change border dressing daily on R pre-tibial incision, lower chest wound, and R groin wound Pain regimen: Tylenol 650 mg q8h, robaxin 750 mg TID PT/OT Orders from past 72 hours: rosuvastatin (Crestor) tablet 20 mg Acute on chronic systolic (congestive) heart failure (HCC) 08/29/24 Echocardiogram showed reduced EF of 40-45% Repeat echo outpt with cardiology follow-up GDMT: On BB, carvedilol. Consider SGLT2, DANILO, and MRA Lasix 40 mg PO daily Addition lasix 20 mg today for LE edema Repeat CMP tomorrow ordered Orders from past 72 hours: carvedilol (Coreg) tablet 3.125 mg Diabetes mellitus, type 2 (HCC) Uncontrolled Reports home regimen: lantus 40 units BID with 10-25 units lispro with meals Current regimen: lantus 35 units daily, lispro 10 units with meals Consider sliding scale insulin Carbohydrate controlled diet No associated orders from this encounter found during lookback period of 72 hours. Constipation Adequate BM now PRN Miralax and senokot Orders from past 72 hours: polyethylene glycol (PEG) 3350 (Miralax) packet 17 g sennosides (Senokot) tablet 17.2 mg Acute blood loss anemia (ABLA) S/p 1u pRBC then 2u pRBC prior to transfer to SNF Hgb on discharge 10.6 after transfusion Repeat CBC tomorrow ordered No associated orders from this encounter found during lookback period of 72 hours. Hypokalemia Repeat CMP tomorrow ordered Continue potassium chloride 20 mEq daily Orders from past 72 hours: potassium chloride CR (Klor-Con M20) ER tablet 20 mEq Primary hypertension Continue BB Consider DANILO No associated orders from this encounter found during lookback period of 72 hours. Open-angle glaucoma Continue brimonidine, timolol, and latanoprost Orders from past 72 hours: timolol (Timoptic) 0.5 % ophthalmic solution 1 drop Other orders Hypoglycemia Management (BG < 70 mg/dL); Standing POCT glucose meter docked device; Standing Notify MD If hypoglycemia persists for more than 30 minutes; Standing Notify MD; Standing Notify MD; Standing Notify MD; Standing Administer TB skin test; Standing OT Eval and Treat; Standing Full code; Standing PT Eval and Treat; Standing POCT Blood Glucose; Standing acetaminophen (Tylenol 8 Hour) ER tablet 650 mg Comprehensive Metabolic Panel; Standing Complete Blood Count w/Diff and Platelet; Standing melatonin tablet 5 mg Adult Diet Carbohydrate Controlled; Carb choice 1800 robert; Standing furosemide (Lasix) tablet 20 mg Nursing communication Please elevate patient's feet with a wedge at night and when laying down; Standing Wound Care; Standing Plan for DC: pending PT/OT DME: TBD Home Health: TBD Diet: Carb controlled Activity: TBD PCP Follow-up: TBD Additional Follow-ups: TBD Patient and plan discussed with attending physician Dr. Manuel Vaughan MD PGY-2, [facility] at [facility] #[id number] [1] Current Facility-Administered Medications: acetaminophen (Tylenol 8 Hour) ER tablet 650 mg, 650 mg, Oral, q8h [facility], Petra Vaughan MD, 650 mg at 09/08/24 1030 aspirin EC EC tablet 81 mg, 81 mg, Oral, Daily, Brittani Montessari, DO, 81 mg at 09/08/24 0900 brimonidine (AlphaGAN) 0.2 % ophthalmic solution 1 drop, 1 drop, Right Eye, BID, Brittani Shelby Dossari, DO, 1 drop at 09/08/24 0900 carvedilol (Coreg) tablet 3.125 mg, 3.125 mg, Oral, BID with meals, Rancindy Montessari, DO, 3.125 mg at 09/08/24 0800 clopidogrel (Plavix) tablet 75 mg, 75 mg, Oral, Daily, Brittani Del Rio DO, 75 mg at 09/08/24 0900 dextrose 50 % solution 12.5 g, 12.5 g, Intravenous, PRN, Brittani Del Rio, furosemide (Lasix) tablet 20 mg, 20 mg, Oral, Once, Petra Vaughan MD furosemide (Lasix) tablet 40 mg, 40 mg, Oral, Daily, Brittani Del Rio, DO, 40 mg at 09/08/24 0900 [START ON 09/09/2024] insulin glargine (Lantus) pen 40 Units, 40 Units, Subcutaneous, q AM, Petra Vaughan MD insulin lispro (Humalog, Admelog) injection 10 Units, 10 Units, Subcutaneous, TID AC, Brittani Del Rio DO, 10 Units at 09/08/24 1130 latanoprost (Xalatan) 0.005 % ophthalmic solution 1 drop, 1 drop, Both Eyes, Nightly, Brittani Del Rio, DO melatonin tablet 5 mg, 5 mg, Oral, Nightly PRN, Petra Vaughan MD methocarbamol (Robaxin) tablet 750 mg, 750 mg, Oral, TID, Brittani Del Rio, DO, 750 mg at 09/08/24 0900 polyethylene glycol (PEG) 3350 (Miralax) packet 17 g, 17 g, Oral, Daily PRN, Petra Vaughan MD potassium chloride CR (Klor-Con M20) ER tablet 20 mEq, 20 mEq, Oral, Daily, Brittani Del Rio, DO, 20 mEq at 09/08/24 0900 rosuvastatin (Crestor) tablet 20 mg, 20 mg, Oral, Nightly, Brittani Orourkeri, DO sennosides (Senokot) tablet 17.2 mg, 2 tablet, Oral, BID PRN, Petra Vaughan MD timolol (Timoptic) 0.5 % ophthalmic solution 1 drop, 1 drop, Both Eyes, BID, Brittani Del Rio DO, 1 drop at 09/08/24 0900 Cosigned by Brittani Del Rio DO at 09/08/2024 7:12 PM CDT Associated attestation - Brittani Del Rio DO - 09/08/2024 7:12 PM CDT I saw and evaluated the patient, participating in the doty portions of the service. I reviewed the resident's note. I agree with the resident's findings and plan. [facility] 2024-08-26 16:51:36 MO Critical Care Note / History Of Present Illness: Deepthi Moore is a 68 y.o. female presenting with a history of CAD, diabetes mellitus, hypertension with associated hypertensive heart disease, and peripheral arterial disease who was found to have significant multivessel CAD on cardiac workup and presents to the ICU after undergoing CABG procedure. Past Medical History: She has a past medical history of Coronary artery disease, Diabetes mellitus (HCC), Heart disease, Hypertension, Hypotension, and Peripheral artery disease (HCC). Surgical History: She has a past surgical history that includes Cataract extraction and Retinal detachment surgery (Right, 2013). Family History: Family History: Problem Relation Name Age of Onset Heart disease Mother Stroke Mother Diabetes Sister Social History: She reports that she has never smoked. She has never been exposed to tobacco smoke. She has never used smokeless tobacco. She reports current alcohol use. She reports that she does not use drugs. Allergies: Patient has no known allergies. Medications: Reviewed in the chart Daily Summary: 08/26: S/P CAB x 4 on vent support and will work on extubating. Labs, imaging reviewed. Results from last 7 days Lab Units 08/26/24 1600 08/26/24 1358 08/26/24 1259 SODIUM mEq/L -- -- 146* POTASSIUM mEq/L -- -- 3.1* CHLORIDE mEq/L -- -- 111* CO2 mEq/L -- -- 24.6 BUN mg/dL -- -- 12 CREATININE mg/dL -- -- 0.68 CALCIUM mg/dL -- -- 8.2* PROTEIN TOTAL g/dL -- -- 5.7 BILIRUBIN TOTAL mg/dL -- -- 0.70 ALK PHOS U/L -- -- 57 ALT U/L -- -- 8 AST U/L -- -- 51* GLUCOSE mg/dL -- -- 156* POC GLUCOSE mg/dL 172* < > -- < > = values in this interval not displayed. Results from last 7 days Lab Units 08/26/24 1311 08/26/24 1207 08/26/24 1142 08/26/24 1128 08/26/24 1113 08/26/24 1048 08/26/24 0900 08/25/24 0754 WBC 10*3/uL 20.66* -- -- -- -- -- -- 8.58 POC HEMOGLOBIN, VENOUS g/dL -- -- -- -- -- 7.7* -- -- HEMOGLOBIN g/dL 10.5* -- -- -- -- -- -- 11.9 POC HEMATOCRIT, ARTERIAL (CALC) % -- 27.0* 26.0* -- < > -- < > -- POC HEMATOCRIT, VENOUS (CALC) % -- -- -- -- -- 23.0* -- -- HEMATOCRIT % 31.8* -- -- -- -- -- -- 37.8 PLATELETS 10*3/uL 159* -- -- 127* -- -- -- 168* < > = values in this interval not displayed. Physical Exam: Vitals: 08/26/24 1500 08/26/24 1530 08/26/24 1600 08/26/24 1630 BP: (!) 120/58 (!) 111/58 (!) 113/57 (!) 110/54 Pulse: 85 86 88 89 Resp: 20 20 21 (!) 23 Temp: SpO2: 98% 99% 99% 100% ROS: Unable to obtain Gen'l: Patient lying in bed, sedated but awakens easily H&N: No scleral icterus or edema. No obvious JVD. Neuro: AAOx3 preoperatively per discussions with anesthesia Card: No rubs or gallops. S1 and S2 present and without overt murmurs. Pulm: Clear to auscultation B/L. No wheezes / rales / rhonchi. Abd: Soft, NT, ND. Bowel sounds present. Ext: No edema or lesions noted. PP+ Assessment and Plan: Surg: Status post CABG x 4 Routine postoperative care including extubation per protocol Monitor chest tube output Cardiac and CV surgical follow-up Neur: Postoperative pain control Per the [facility] Pulm: Postoperative ventilator support Extubation per protocol CV: History of hypertension; history of multivessel CAD now status post CABG History of ischemic cardiomyopathy with severe diastolic dysfunction Chronic congestive heart failure Meds Per the [facility] Continue vasopressors for hemodynamic support GI: No acute issues Oral diet when appropriate Renal: No acute issues Monitor urinary output and daily labs ID: No acute issues Antibiotics per postoperative protocols Heme: No acute issues Daily labs Endo: No acute issues Trend fingersticks per postoperative protocol MSK: No acute issues Ambulation with PT when appropriate GI Prophylaxis: Per the [facility] DVT Prophylaxis: Per the [facility] This patient is critically ill due to presenting with an illness that impairs one or more vital organ systems. There was a high probability of imminent or life threatening deterioration in the patient's condition. I spent a cumulative 35 minutes of non-concurrent critical care time directly related to this individual patient's care involving the evaluation, coordination, and management of the patient. This includes only time spent at the immediate bedside or elsewhere on the patient's floor or unit and is not inclusive of any time spent performing invasive procedures. FRAME MOUNTER [facility] Procedure Notes Date/Time Note Provider Source 2024-08-30 08:38:00 ARTERIAL LINE PROCEDURE NOTE Date of Procedure: 08/30/24 at 2:08 PM Procedure: Arterial line insertion (CPT 12131) with use of ultrasound guidance (CPT 44859) Consent: obtained Indication: [id number] hemodynamic monitoring, lab draws Anesthesia: none Proceduralist: Ced Carlton MD EBL: 5 mL Complications: none Procedure Note: The patient was placed supine and the procedural site was cleaned using chlorhexidine with aseptic technique in the usual fashion. The previous right radial arterial line was disconnected from the tubing, wired, and a new arterial catheter was placed. The guidewire was removed. The line was secured with tape and Tegaderm. The catheter was connected to the transducer and a good waveform was observed on the monitor. Cosigned by Maurice Wesley MD at 08/30/2024 5:13 PM RUG FRAME MOUNTER FRAME MOUNTER FRAME MOUNTER Anesthesiology [facility] 2024-08-26 07:52:00 Date: 08/26/2024 Diagnosis: 1. Coronary artery disease. 2. Unstable angina. 3. Acute on chronic congestive heart failure NYHA class II. 4. Hypertensive cardiomyopathy. Severe diastolic dysfunction. 5. Ischemic cardiomyopathy. 6. Type 2 diabetes mellitus. 7. Hypertension 8. Hyperlipidemia 9. Peripheral arterial disease. Procedures: 1. Aortocoronary bypass x 4 on cardiopulmonary bypass support. 2. Left internal mammary graft to the LAD. 3. Reversed saphenous vein graft from the aorta to the first diagonal and the OM. 4. Reversed saphenous vein graft from the aorta to the PDA (RCA). 5. Exclusion of the left atrial appendage with an AtriClip 35. 6. Insertion of atrial ventricular epicardial pacing leads. 7. Right great saphenous vein endoscopic vein harvesting. Surgeon: Fabricio Lucas MD Heat And Frost Insulator Helper: BONIFACIO Reese Harman Anesthesia: General Estimated Blood Loss: 500 mL Drains: Drain 08/26/24 Closed drain, to gravity Inferior;Right Leg 19 Fr. (Active) Output (mL) 20 mL 08/26/24 1315 Urethral Catheter (Active) Site Assessment Clean 08/26/24 1423 Pericare Performed Yes 08/26/24 1423 Urethral Catheter Care Performed Yes 08/26/24 1423 Placement Safety Checks QShift Closed System Seal Intact;Tube free of kinks;Bag labeled with insertion date;Urethral Cath Drainage bag <1000 cc urine 08/26/24 1423 Securement Method Securing device (Describe) 08/26/24 1423 Securing Device Changed Yes 08/26/24 1423 Reason for Continuing Urinary Catheterization past POD 1 Physician Specific Necessity (Not I&O) 08/26/24 1423 Output (mL) 60 mL 08/26/24 1500 Y Chest Tube 1 and 2 34 Fr. 24 Fr. (Active) Output (mL) 20 mL 08/26/24 1500 Urine Output: 950 mL Indications: Deepthi Moore is an 68 y.o. female who presented with symptomatic angina, positive stress test and for that reason underwent a left heart catheter demonstrates complete occlusion of the right coronary with distal reconstitution of the PDA and PL branches by collaterals from the left side. Diffuse disease of the proximal left main of 90%. Proximal stenosis of 90% of the LAD. Also 8090% stenosis of the OM. The patient is symptomatic maybe by shortness of breath and consistent with unstable angina. Plan to proceed with aortocoronary bypass.. The risks, benefits, and alternatives of the above procedure were discussed and the patient elected to proceed. STS surgical risk assessment A personalized risk assessment using the STS surgery risk calculator was calculated and discussed with the patient/family prior to surgery. Time was allowed for questions and answers. The patient understood all information presented. She agrees to proceed. Operative consent has been obtained. Procedure Details: The patient was seen in the preoperative area. The site of surgery was properly noted/marked if necessary per policy. The patient has been actively warmed in preoperative area. Preoperative antibiotics have been ordered and given within 1 hours of incision. Venous thrombosis prophylaxis ordered with chemical prophylaxis and bilateral CHRISTIAN hose. The surgical field is prepped and draped in the usual sterile fashion. The right great saphenous vein is harvested using an endoscopic approach through an incision below the knee. The vein is dissected proximally and distally the side branches are transected with electrocautery. The vein is proximally and distally ligated and then distended with cold heparinized cardioplegia solution the side branches are clipped with hemoclips. The vein is of adequate diameter and quality for the bypasses. Once hemostasis is obtained in the right lower extremity incisions are then closed with 3-0 Vicryl for the fascia and subcutaneous tissue and 3-0 Monocryl cuticular fashion for the skin. A drain is placed alongside the dissection tract. A midline sternotomy incision is then performed in the usual fashion. The sternum was split with the power saw. A Rultract retractor is applied and the left internal mammary is taking down to be used as a graft for the LAD. The left internal mammary is of adequate flow and diameter. Full dose of intravenous heparin is administered to maintain the ACT about 450 seconds throughout the procedure. Cannulation is then performed in the distal ascending aorta with a 7 mm aortic cannula. The right atrium is cannulated with 34 Montserratian 3 stage cannula and the coronary sinus is cannulated with a coronary sinus cannula. All cannulas are held in place with pursestring suture of 4-0 Prolene. The patient is then placed on cardiopulmonary bypass without difficulty. Cardiac arrest is induced with the administration of 1 L of cold antegrade [place] cardioplegia through the aortic root, additional cooling of the heart is obtained with instillation of cold saline solution into the pericardial sac, the intermittent administration of cold retrograde cardioplegia through the coronary sinus perfusion, and the core temperature is drifted down to 32 Celsius degrees. A cross-clamp is applied to the distal ascending aorta. In this fashion appropriate cardioprotection is achieved. The right coronary artery is inspected found to be a diffusely calcific vessel. The proximal segment of the PDA is patent it is opened with a longitudinal artery millimeters, it is a vessel of approximately 2.75 to 3 mm in diameter. A segment of saphenous vein graft is then anastomosed in an end-to-side fashion with a 7-0 Prolene running suture. The saphenous vein graft is cut to appropriate length to easily reach the ascending aorta. The OM branch is visualized beyond the obstruction it is a large vessel of 3.25 to 3.5 mm in diameter which is open with a longitudinal arteriotomy of 8 mm and another segment of subdomain graft is anastomosed in an end-to-side fashion with a 7-0 Prolene running suture. There is a large first diagonal branch that is open in the proximal segment is a vessel of 2.5 mm in diameter and a [id number] anastomosis constructed to the saphenous vein graft with a 7-0 Prolene running suture. The saphenous vein graft is then cut to appropriate length to easily reach the ascending aorta. The left anterior descending is diffusely calcific all throughout. In the midsegment there is a soft portion which is used for the anastomosis of the left internal mammary. The left anterior descending is open with a longitudinal arteriotomy of 6 mm left internal mammary is cut to proper length and spatulated and anastomosed in an end-to-side fashion with a 7-0 Prolene running suture. At this point of the procedure the patient is rewarmed to 36.5 Celsius degrees. The aortic cross-clamp is released. Atrial and ventricular epicardial pacing leads are attached to the right atrium and right ventricle respectively and the patient is pacing 90 AV sequential fashion. A partial side-biting clamp is applied to the proximal ascending aorta. 2 aortotomies are performed and the proximal anastomosis of the saphenous vein grafts are constructed with 6-0 Prolene running sutures. The left atrial appendage is excluded with the insertion at its base of an AtriClip 35. The patient is then weaned off from cardiopulmonary bypass without difficulty. All cannulas are retrieved and the pursestring sutures are tied. Hemostasis is carefully checked on all suture lines and cannulation sites and found to be satisfactory. Chest tubes are placed across the mediastinum and advanced into the left frontal space and the pericardium. These are secured to the skin with 2-0 silk and connected to a Pleur-evac close drainage system. The sternotomy is then closed with # stainless steel wires from the sternum, #1 PDS for the fascia, 2-0 Vicryl to approximate the subcutaneous tissue and 3-0 Monocryl in subcuticular fashion for the skin. Sterile dressings were applied. All counts are correct. Perfusion time: 99 minutes. Cross-clamp time: 52 minutes Estimated blood loss: 500 mL. Cell Saver readministered: 225 mL. Intraoperative transfusion of red blood cell blood products: None Case Status: Elective: able to defer w/o increased risk Wound class: Clean Infection Present at the time of surgery: No Specimens ID Source Type Tests Collected By Collected At Frozen? Priority Lab ID A Blood, Arterial Blood PLATELET COUNT FIBRINOGEN PROTIME-INR PTT Fabricio Lucas MD 08/26/24 1128 STAT [id number], [id number], [id number], [id number] Description: ARTERIAL Comment: ON PUMP, FULLY HEPARINIZED, OPEN HEART BYPASS SURGERY Implants Type Name Action Serial No. Implant ATRICLIP FLEX-V 35MM - [id number] - [id number] Implanted [id number] Complications: No Disposition: ICU Condition: stable [facility] Thoracic Surgery Physician Susan Mcdaniels 2024-08-26 07:52:00 Procedure Procedure(s): ON PUMP CORONARY ARTERY BYPASS GRAFT X 4; LEFT INTERNAL MAMMARY ARTERY HARVEST; RIGHT ENDOSCOPIC SAPHENOUS VEIN HARVEST; WITH TRANSESOPHAGEAL ECHOCARDIOGRAM; 35 MM ATRICLIP LEFT ATRIAL APPENDAGE EXCLUSION; INSERTION OF CHEST TUBES; INSERTION OF ATRIAL AND VENTRICULAR PACING WIRES ENDOSCOPIC VEIN HARVESTING Pre-op Diagnosis: CAD Post-op Diagnosis: Same OR Staff Legal Word Processor - Primary: Estephania Castaneda RN Physician Preventive Maintenance Coordinator: GAEL Taylor Scrub Person - Primary: Elaine Metcalf CST Heat And Frost Insulator Helper: Ceferino Braxton [facility] Anesthesia Staff Anesthesiologist: Kim Sommers MD Drains: Drain 08/26/24 Closed drain, to gravity Inferior;Right Leg 19 Fr. (Active) Y Chest Tube 1 and 2 34 Fr. 24 Fr. (Active) Wound Closure Type: Primary Closure (any portion of the skin closed or approximated) Wound Class: Clean Surgical Status: Elective: able to defer w/o increased risk Anticipating return to OR: Anticipated Return to OR: No Is this patient on therapeutic antibiotics? Patient on theraputic antibiotics?: No Document Complications/Transfusions /Implants? None Specimens ID Source Type Tests Collected By Collected At Frozen? Priority Lab ID A Blood, Arterial Blood PLATELET COUNT FIBRINOGEN PROTIME-INR PTT Fabricio Lucas MD 08/26/24 1128 STAT [id number], [id number], [id number], [id number] Description: ARTERIAL Comment: ON PUMP, FULLY HEPARINIZED, OPEN HEART BYPASS SURGERY Procedure for cancer: Procedure for Cancer?: No Disposition: ICU Condition: stable [facility] 2024-08-24 16:55:24 Current Medications Medication Instructions aspirin EC 81 MG EC tablet STOP as INSTRUCTED BY YOUR DOCTOR. LAST DOSE ON 08/22/24. brimonidine (AlphaGAN P) 0.2 % ophthalmic solution Take morning of surgery with sip of water, no other fluids insulin aspart (NovoLOG FLEXPEN) 100 UNIT/ML pen Continue until night before surgery Insulin Glargine (BASAGLAR KWIKPEN SC) Continue until night before surgery latanoprost (Xalatan) 0.005 % ophthalmic solution Take morning of surgery with sip of water, no other fluids multivitamin (Theragran) tablet Continue until night before surgery rosuvastatin (Crestor) 5 MG tablet Continue until night before surgery timolol (Betimol) 0.25 % ophthalmic solution Take morning of surgery with sip of water, no other fluids Additional Instructions: Open heart surgery [facility] Preadmit instructions DATE OF PROCEDURE: 08/26/2024 Day of procedure: Check in at [address] [place] [address], 1st floor, [facility] [place], front desk auxiliary, registration department. Arrival time per your doctor Cardiovascular Preop Area = [phone] PREADMIT SOSLEXW=[phone] PREADMIT NURSE= Litzy Morris RN Financial Considerations should be discussed with the Business Office: [phone] or [phone] ? At any time prior to your surgery: Any changes in your physical condition, such as a cold, fever, persistent cough or rash, should be reported to your surgeon before the day of surgery. Dr. Fabricio Lucas MD Do not drink any alcohol or use tobacco 24 hours before surgery as it may have an effect on some medications administered during the procedure. If you have an Advance Directive ( Living Will) or a Medical Power of Box Coverer Hand, please bring a copy for your medical record. ? Arrange Transportation: Arrange to have an adult with you to take you home from the hospital and stay with you for the first 24 hours after your surgery. You CANNOT drive or take a taxi/Uber home by yourself. Your surgery will be cancelled if you do not have an adult to take you home. ? Nothing to eat or drink anything after midnight the night before your surgery except small sips of water first thing in the morning to take your medications, unless otherwise instructed by your physician. ? If you are Diabetic, keep Fasting Blood Sugar to be below 150 prior to surgery. Management of your blood sugar is doty to the healing process. Do not take your diabetic medication(s) _BASAGLAR AND NOVOLOG INSULINS__ on the morning of your procedure. ADD SPECIAL INSTRUCTIONS: Take 12.5mg of Metoprolol (1/2 tab of 25mg) the night before, _08/25/24 and the other half tab the morning of your procedure __08/26/24 unless if your HR is below 60, and/or if the top number of your BP is below 100. MUPIROCIN NASAL OINTMENT: Apply in each nostril as instructed on the morning and evening the day Before your procedure on ____08/24/24 and in the morning on the day of your procedure __08/25/24 Read your handout provided on how to apply the nasal ointment. ? CHLORHEXIDINE GLUCONATE MOUTHWASH: Orally swish 15ml of Chlorhexidine Gluconate mouthwash for at least 30 seconds, and then spit it out on the morning and evening of the day before your surgery _08/24/24 and in the morning on the day of your procedure _08/25/24. Do Not Swallow the mouthwash. Read your handout provided about " How to use Chlorhexidine Gluconate Mouthwash" CHG BATHING INSTRUCTIONS: Bottle of CHG Soap with three sponges. Take two (2) showers: The night before surgery (half bottle), and the morning of surgery (half bottle). Bathe entire body including your belly button. Do not apply over over your face, hair and private area Use clean towels and washcloth (when the sponges provided by your nurse is not available). Do not shave 48 hrs prior to bathing, especially on the surgical site Change sheets prior to your bathing the night before of your procedure, and wear clean pajamas after your bathing. Do not sleep with pets. Do Not use any chemicals on your skin or hair, such as body lotions, handcreams, perfumes, colognes, makeup, hair spray, gel etc...as these can affect the function of the monitors. Clothing should be clean, loose, & comfortable on the morning of surgery, and easy to get off and on after surgery. ? JEWELRY and other valuables SHOULD NOT be brought with you on the day of surgery. The hospital is not responsible for lost of stolen items. ? Prescription Glasses, if used for reading, should be brought with you, and bring a glass case to store them while you are in surgery. Do Not wear contact lenses on the day of surgery. ? Continue your regular bathing after your procedure. Continue proper hand washing before and after surgery. Forced Air Warming device will be used to keep the patient warm during anesthesia and surgery, and for patients who are at risk of hypothermia ? ICOUGH: Following these steps both in the hospital and at home after surgery will help reduce the risk of post-operative pneumonia as well as other breathing complications. INCENTIVE SPIROMETER EXERCISES: Deep breathing exercises will help keep your lungs healthy. Place the mouthpiece in your mouth and seal your lips around it. Breathe in (inhale) slowly and deeply. Remove the mouthpiece from your mouth and breathe out. This breathing exercise needs to be done 10 times each hour while awake after surgery. COUGH AND BREATHE DEEPLY: After surgery, taking deep breaths and coughing will help to clear your lungs. This helps the lungs do the vital job of delivering oxygen to the tissues in your body. ORAL CARE: Twice a day In addition to brushing your teeth, use mouthwash twice daily to keep your mouth clean from germs. You should brush your teeth and use mouthwash several days before your surgery and then continue after you are discharged from the hospital. UNDERSTAND ICOUGH PRACTICES: It is important for you and your family to take an active part in your recovery from surgery. We want your pain to be controlled to help you take deep breaths and cough, do breathing exercises, and make sure that you get out of bed, sit in a chair, and walk. GET OUT OF BED AND WALK THE HALLWAY: Getting out of bed and walking at least three times per day will help your recovery after surgery and help prevent complications. Walking will help clear secretions from your lungs and improve your circulation so that you may regain your strength. HEAD OF BED ELEVATION: It is important to keep the head of your bed elevated 30-45 degrees if not contraindicated to your health condition. Being in an upright position after surgery will help your breathing. Red Armband Patient Guidelines: Patient safety is always first at [facility]. As such, we require that a special red armband be worn for blood bank testing. The red armband you are wearing ensures that any potential blood transfusions are as safe as possible and is an added safety measure. ? REMEMBER: ? You will need to wear this red armband until you return for your procedure. ? If you do not wear this armband until your procedure is complete, the Blood Bank testing process will start over. ? Please do not cut this water-proof armband off. You may turn it inside out to prevent others from seeing the writing. ? The number on this armband helps ensure that the specimen we draw can be matched only to you. ? RED ARM BAND PLACED ON THE : ____ ARM. #____ Education handouts provided: Written Instructions on how to use Mupirocin Nasal Ointment and Chlorhexidine Gluconate Mouthwash Open-Heart Surgery: What to Expect in the CV ICU and the HVI IMU Unit Education Packet. Other Instructions: Prescriptions for MUPIROCIN NASAL OINTMENT, and CHLORHEXIDINE GLUCONATE MOUTHWASH will be called to your pharmacy of choice by _ANAIS____ CHG KIT SOAP, AND INCENTIVE SPIROMETRY will be provided to you on the day of your pre-admit appointment. FRAME MOUNTER [facility] Notes Date/Time Note Provider Source [facility]ahfagr6785-28-70 16:31:55Upcoming Encounters Health Maintenance Due Date Last Done Comments CT Colonography 1955 Colonoscopy 1955 Colorectal Cancer Screening 1955 FIT-DNA 1955 FIT 1955 FOBT 1955 Medicare Annual Wellness (AWV) 1955 Sigmoidoscopy 1955 Diabetes: Foot Exam 10/17/1965 Respiratory Syncytial Virus (RSV) Adult Series (1 - Risk 60-74 years 1-dose series) 2015 Pneumococcal Vaccine: 50+ Years (2 of 2 - PCV) 02/19/2018 02/19/2017 Diabetes: Retinopathy Screening 09/19/2023 09/18/2022, 03/17/2022, 11/07/2021 Zoster Vaccines (3 of 3) 04/12/2024 02/16/2024, 01/28 Diabetes: Hemoglobin A1C 11/22/2024 025, 06/24/2024, 01/07/2023, Additional history exists Lipid Panel 08/25/2025 08/25/2024, 05/30, 09/30/2022, Additional history exists Mammogram 05/10/2026 05/10/2024, 09/19/2021 DTaP/Tdap/Td Vaccines (2 - Td or Tdap) 02/19/2027 02/19/2017, 11/13/2008 Bone Density Scan Completed 04/18/2021, 04/18/2021 Influenza Vaccine Completed 09/12/2024, , 05/04/2022, Additional history exists HIB Vaccines Aged Out No longer eligi ble based on patient's age to complete this topic HPV Vaccines Aged Out No longer eligi ble based on patient's age to complete this topic Hepatitis A Vaccines Aged Out No long er eligible based on patient's age to complete this topic Hepatitis B Vaccines Aged Out No long er eligible based on patient's age to complete this topic IPV Vaccines Aged Out No longer eligi ble based on patient's age to complete this topic Meningococcal Vaccine Aged Out No berta juli eligible based on patient's age to complete this topic Rotavirus Vaccines Aged Out No longer eligible based on patient's age to complete this topic [id number] 16:31:55 [facility]Upxtsaq5432-44-96 16:31:55 [facility] DallasUjdhurq7295-06-71 10:32:16* Home Health (Routine) - Authorized Specialty Diagnoses / Procedures Referred By Contac t Referred To Contact Home Health Services Diagnoses 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 S/P CABG x 4 [place] [address] [place] [address] Phone: tel: fax: Referral ID Status Reason Start Date Expiration Date Visits Requested Visits Authorized [id number] Authorized Specialty Services Required 09/29/2024 11/28/2024 999 999 * Home Health (Routine) - Authorized Specialty Diagnoses / Procedures Referred By Conttrang t Referred To Contact Home Health Services Diagnoses Other hyperlipidemia Glaucoma, unspecified glaucoma type, unspecified laterality Essential (primary) hypertension Type 2 diabetes mellitus with diabetic nephropathy, unspecified whether nursing home insulin use (HCC) Acute combined systolic (congestive) and diastolic (congestive) heart failure Cough, unspecified type SOB (shortness of breath) Pain [place]cle [place] [address] [place] [address] Phone: tel: fax: Referral ID Status Reason Start Date Expiration Date Visits Requested Visits Authorized [id number] Authorized Specialty Services Required 09/29/2024 11/28/2024 999 999 [facility] [id number] 10:32:16 [facility] [id number] 10:32:16* Over the past 2 weeks, how often have you been bothered by any of the following problems? Question Answer Date of Assessment Author Patient Health Questionnaire-2 Score 0 09/27/2024 1:30 PM CDT Tyree Troncoso A[facility] * Calculated C-SSRS Risk Score (Lifetime/Recent) Answer Date of Assessment Author No Risk Indicated 09/21/2024 1:09 AM GAGANDEEPT Jessika Calderon RN * [place] Suicide Severity Rating Scale (Screener/Recent Self-Report) Question Answer Date of Assessment Author 1. Wish to be (Past 1 Month) No 1:09 AM GAGANDEEPT Jessika Pereyra RN 2. Non-Specific Active Suici darlene Thoughts (Past 1 Month) No 09/21/2024 1:09 AM GAGANDEEPT Pao Pereyra RN 6. Suicidal Behavior (Lifetime) No 1:09 AM GAGANDEEPT Jessika Pereyra RN * Over the past 2 weeks, how often have you been bothered by any of the following problems? Question Answer Date of Assessment Author Little interest or pleasure in doing things Not at all 09/27/2024 1:30 PM GAGANDEEPT Francisco J Troncoso A[facility] Feeling down, depressed, or hopeless Not at all 09/27/2024 1:30 PM CDT Francisco J Troncoso A[facility] Trouble falling or staying asleep, or sleeping too much Not at all 09/27/2024 1:30 PM GAGANDEEPT Pooja Case AHP Feeling tired or having little energy Not at all 09/27/2024 1:30 PM GAGANDEEPT Francisco J Troncoso A[facility] Poor appetite or overeating Not at all 09/27/2024 1: 30 PM GAGANDEEPT Pooja Troncoso AHP Feeling bad about yourself - or that you are a failure or have let yourself or your family down Not at all 09/27/2024 1:30 PM GAGANDEEPT Francisco J Troncoso [facility] Trouble concentrating on things, such as reading the newspaper or watching television Not at all 09/27/2024 1:30 PM CDT Francisco J Troncoso A[facility] Moving or speaking so slowly that other people could have noticed? Or the opposite - being so fidgety or restless that you have been moving around a lot more than usual. Not at all 09/27/2024 1:30 PM GAGANDEEPT Francisco J Troncoso [facility] Thoughts that you would be better off or hurting yourself in some way Not at all 09/27/2024 1:30 PM Mario Gutiérrez A[facility] Patient Health Questionnaire-9 Score 0 09/27/2024 1:30 PM GAGANDEEPT Tyree Troncoso AHP [place] [id number] 10:32:16* Petra Vaughan MD - 09/29/2024 12:29 PM CDT Images from the original note were not included. Discharge Diagnosis History of E. coli septicemia Patient Active Problem List Diagnosis Physical deconditioning Dry eye History of E. coli septicemia Complicated urinary tract infection Hyperlipidemia Type 2 diabetes mellitus with hyperglycemia, with long-term current use of insulin ([facility]) Normocytic anemia Acute combined systolic (congestive) and diastolic (congestive) heart failure Gram negative sepsis (CMS/HCC) ([facility]) Acute non-ST elevation myocardial infarction (NSTEMI) (CMS/HCC) ([facility]) Sepsis ([facility]) EDUARDA (acute kidney injury) ([facility]) Hyperbilirubinemia Flu vaccine need Need for pneumococcal vaccine Screening-pulmonary TB Insomnia S/P CABG x 4 Open-angle glaucoma Constipation Hypokalemia Glaucoma Bilateral ocular hypertension Acute on chronic systolic (congestive) heart failure Superficial vein thrombosis Acute post-operative pain Essential (primary) hypertension Ischemic cardiomyopathy Acute blood loss anemia ([facility]) Macular degeneration Cardiogenic shock (HCC) 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 DM (diabetes mellitus) ([facility]) 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 female with PMH CAD s/p CABGx4, insulin-dependent T2DM, hypertension, HLD, and PAD who presented with symptomatic angina and a positive stress test leading to LH catheterization and CABG x4 with right great saphenous vein graft. She was monitored in the CV ICU intubated on pressors in cardiogenic shock for a few days then transferred to the CV IMU. Echocardiogram was performed on 08/28/24 which showed reduced ejection fraction of 40-45%. Her chest tube was removed 09/02. She was deemed stable for transfer to nursing home facility on 09/06/24 for further rehabilitation, however, she developed sepsis and was readmitted at [facility] for E. Coli septicemia. She was re-transferred to nursing home facility on 09/20/24. She did well at the SNF with physical and occupational therapies with no further complications. She was deemed stable for discharge home with home health PT. Information Provided to Patient/Family I discussed with the patient/family details of the stay. See After Visit Summary which were reviewed and shared with patient/family. Operative Procedures PerformedNone ProceduresNone Pertinent Physical Exam At Time of DischargePhysical Exam: Vitals and nursing note reviewed. Constitutional: Appearance: Normal appearance. HENT: Head: Normocephalic and atraumatic. Right Ear: External ear normal. Left Ear: External ear normal. Nose: Nose normal. Mouth/Throat: Mouth: Mucous membranes are dry. Eyes: Extraocular Movements: Extraocular movements intact. Cardiovascular: Rate and Rhythm: Normal rate and regular rhythm. Pulmonary: Effort: Pulmonary effort is normal. No respiratory distress. Breath sounds: Normal breath sounds. Abdominal: General: Abdomen is flat. Palpations: Abdomen is soft. Musculoskeletal: Right lower leg: Edema (1+ to mid-calf) present. Left lower leg: Edema (trace) present. Skin: General: Skin is warm and dry. Findings: Rash and wound (R tibial wound seen c/d/i) present. Rash is papular. Neurological: General: No focal deficit present. Mental Status: She is alert. Psychiatric: Mood and Affect: Mood normal. Right lower calf wound Body mass index is 27.59 kg/m?. Patient Condition at DischargeStable DispositionHome [1] Discharge MedicationsNew carboxymethylcellulose PF (Refresh Plus) 0.5 % ophthalmic solution - 1 drop 4 times daily metoprolol succinate XL (Toprol-XL) 25 MG 24 hr tablet - 25 mg Daily with evening meal Changedbrimonidine (AlphaGAN P) 0.2 % ophthalmic solution - Order can't be discretely compared. furosemide (Lasix) 40 MG tablet - 40 mg Daily PRN - Frequency changed from "Daily" to "Daily PRN". insulin glargine (Basaglar KwikPen) 100 UNIT/ML pen - 45 Units 2 times daily - Dose changed from "40 Units" to "45 Units". rosuvastatin (Crestor) 20 MG tablet - 20 mg Daily - Frequency changed from "Nightly" to "Daily". Stoppedcarvedilol (Coreg) 3.125 MG tablet - 3.125 mg 2 times daily with meals guaiFENesin (Robitussin) 100 MG/5ML liquid - 200 mg 4 times daily PRN heparin 5000 units/mL injection - 5,000 Units Every 12 hours insulin lispro (HumaLOG, Admelog) 100 unit/ml injection - 4-16 Units 3 times daily PRN ipratropium-albuterol (Duo-Neb) 0.5-2.5 mg/3 mL nebulizer solution - 3 mL Every 4 hours PRN levoFLOXacin (Levaquin) 750 MG tablet - 750 mg Daily loratadine (Claritin) 10 MG tablet - 10 mg Daily methocarbamol (Robaxin) 750 MG tablet - 750 mg Every 8 hours potassium chloride CR (Klor-Con M20) 20 MEQ ER tablet - 20 mEq Daily sennosides (Senokot) 8.6 MG tablet - 17.2 mg 2 times daily (2 tablet) Continuedacetaminophen (Tylenol) 325 MG tablet - 650 mg Every 4 hours PRN aspirin EC 81 MG EC tablet - 81 mg Daily benzocaine (Orajel) 10 % mucosal gel - 3 times daily PRN clopidogrel (Plavix) 75 MG tablet - 75 mg Daily latanoprost (Xalatan) 0.005 % ophthalmic solution - 1 drop Nightly timolol (Timoptic) 0.5 % ophthalmic solution - 1 drop 2 times daily Test Results Pending At DischargeNone Issues Requiring Follow-UpFluid status as patient is being discharged on lasix PRN Insulin titration Outpatient Iteeev-MzVkntvk-vv with PCP within two weeks Follow-up with Dr. Ruiz, cardiology Follow-up with Dr. Parsons, CV surgery Patient and plan discussed with attending physician Dr. Lizabeth Vaughan, [facility] [place] MSO #[id number] Cosigned by Maricel Barone MD at 09/29/2024 4:39 PM CDT Associated attestation - Maricel Barone MD - 09/29/2024 4:39 PM CDT I saw the patient on the day of discharge and agree with the discharge plans and disposition. [id number] 10:32:16* This document contains information received from the source organization and may not represent a complete record from that organization. * Restricted notes were excluded * Farhana Wilson OT - 10/01/2024 12:40 PM CDT Occupational Therapy Occupational Therapy Daily Treatment Patient Name: Deepthi Moore Today's Date: 10/01/2024 General Session Information: Pt participated in dynamic standing balance, standing tolerance task, and B UE strengthening/endurance exercises. Subjective Current Problem: Reduced endurance, Decreased standing balance, and reduced activity tolerance Objective Pain: Pain Assessment Pain Assessment: 0-10 (10/01/2024914) Pain Score: 0 (10/01/2024914) Self-Care: ADL Self Care/Home Management (ADLs) Time Entry: 10 Treatment: Pt/her family wanted an update on DME orders; educated them on the discharge and DME ordering process. Therapeutic Exercise: Exercise Tools: Exercise Tools Exercise Tools: Yes UE Ergometer: 15 minutes level 8 watt 94% activity with breaks required PRN Other Exercise Tool 1: 2# free weight in Rhand and 1# free weight in L hand for bicep curls 2/20x and chest press 2/20x Other Exercise Tool 2: light resistance hand ball squeezes 2/25x Therapeutic Activity: Therapeutic Activities: Yes Therapeutic Activity 1: Balance, static standing (Pt stood ~6-7 minutes with 1 RB required.) Therapeutic Activity 2: Balance, dynamic standing (Forward reaching dynamic standing balance activity performed using cuevas bags; Min A with cues required) Therapeutic Activity 3: Transitional movement (sit<>stand transfer training performed requiring CGA and safety cues) Activity Tolerance: Fair/ Fair+ Farhana Wilson OT * Farhana Wilson OT - 09/30/2024 6:18 PM CDT Occupational Therapy Occupational Therapy Daily Treatment Patient Name: Deepthi Moore Today's Date: 09/30/2024 General Session Information: Pt participated in B UE strength/endurance exercise, dynamic standing balance/tolerance tasks, coordinated reaching activity, and transitional movement. Subjective Current Problem: Weakness and reduced endurance Objective Pain: Pain Assessment Pain Assessment: 0-10 (09/30/2024 1000) Pain Score: 0 (09/30/2024 1000) Treatment: Pt found sitting in wheelchair with Naina MEDINA's elevated in chair in front of her. Pt reported she's constipated, and was given a stool softener. However pt noted she was not drinking enough water these past few days d/t being informed not to leading to pt feeling dizzy/potentially dehydrated. Currently, pt reports she is still constipated and has drunk 3 eight ounce bottles of water. Pt educated on significance of maintaining proper hydration levels and home safety strategies. Therapeutic Exercise: Exercise Tools: Exercise Tools Exercise Tools: Yes UE Ergometer: 15 minutes, 8 lima Other Exercise Tool 1: 2# and 1# free weights used for B UE strengthening in all planes within tolerance/limits performed 2/10x with breaks. Therapeutic Activity: Therapeutic Activities: Yes Therapeutic Activity 1: Other (comment) (coordinated reaching task using puzzle; SBA with cues required) Therapeutic Activity 2: Transitional movement (sit<>stand transfer CGA required) Therapeutic Activity 3: Balance, dynamic standing (multidirectional reaching activity with puzzle used to address dynamic standing balance/tolerance) Activity Tolerance: Fair+ Farhana Wilson OT * Pat Chambers PTA - 09/30/2024 3:48 PM CDT Physical Therapy Physical Therapy Daily Treatment Note Patient Name: Deepthi Moore Today's Date: 09/30/2024 General Session Information: Denies any pain while in rehab session. Although pt reported that she is constipated for the past 4 days & nrsg is treating her prob. Current Problem: Stdg balance impairment, fair tolerance fr therapeutic act, up/down stairs(9 steps) deficits. Pain: Pain Assessment Pain Assessment: 0-10 (09/30/20241529) Pain Score: 0 (09/30/20241529) Pain Rating Scale (DVPRS): No pain (09/30/20241529) Treatment: Therapeutic Exercise: Worked on maranda LE HEP x 15 rep. X 3 sets w/ 2# wt on ea ankle at supported sitting. Increased # of set to improve tolerance, endurance, & ms strength. Needs frequent cues to inc ROM & slow down the ex movement. Balance/Neuromuscular Re-Education: Cont to worked on simple static stdg balance unsupported at CGA + cues for proper execution of task & postural adjustments to remain stable. Stairs Training: Up/down on stairs at 9 steps x 1 rep. at SBA + cues safety. Pt holding the maranda hand rails as support. Ambulation 1: Gt 150' x 2 rep. w/ no assistive device at CGA/SBA. No LOB noted. Patient Education: Cont to educate on safe transfers & stdg balance w/out support. Supervising Physical Therapist: Dunia Davis PTA Cosigned by Javi Davis PT at 09/30/2024 4:11 PM CDT * Petra Vaughan MD - 09/29/2024 6:33 PM CDT Received page from nurse that patient went to ID doctor today and per ID, she will need an additional 3 days of Levofloxacin and a CBC. These have been ordered. * Javi Susan, PT - 09/29/2024 4:30 PM CDT Physical Therapy Physical Therapy Daily Treatment Note Patient Name: Deepthi Moore Today's Date: 09/29/2024 General Session Information: She tolerated treatment session well.Her vital signs stable at BP 120/64 with HR of 79 after There Excs and BP 118/67 with HR of 79 after ambulation Subjective Current Problem: Limited ambulation endurance with gait abnormality,decreased strength BLE, and impaired functional activities tolerance Objective Pain: Pain Assessment Pain Assessment: 0-10 (09/29/2024 1000) Pain Score: 0 (She denies any pain or discomfort) (09/29/2024 1000) Treatment: Therapeutic Exercise: Exercises Hip Flexion: PRE BLE with 2# cuff wts in sitting x 20 reps Hip ABduction: PRE BLE with 2# cuff wts in sitting x 20 reps Knee AROM : PRE BLE with 2# cuff wts in sitting x 20 reps Ankle Pumps: PRE BLE with 2# cuff wts in sitting x 20 reps Equipment Used: Equipment Use Comments: Omnicycle x 15 mins BLE using neur mode at level 2 resistance to facilitate cardiovascular and neuromuscular conditioning Functional Assessments: Bed Mobility: Bed Mobility Bed Mobility: Yes Bed Mobility 1 Bed Mobility From 1: Supine, Short sit Bed Mobility Type 1: To and from Bed Mobility to 1: Short sit, Supine Level of Assistance 1: Independent Transfers: Transfers Transfer: Yes Transfer 1 Transfer From 1: Sit, Stand Transfer Type 1: To and from Transfer to 1: Stand, Sit Technique 1: Stand pivot Transfer Device 1: (None) Level of Assistance 1: Setup/clean-up assistance Trials/Comments 1: x 10 trials Transfers 2 Transfer From 2: Bed, Wheelchair Transfer Type 2: To and from Transfer to 2: Wheelchair, Bed Technique 2: Stand pivot Level of Assistance 2: Supervision/touching assistance Ambulation 1: Surface 1: Level tile Device 1: No device Assistance 1: Supervision/touching assistance Quality of Gait 1: Narrow REAGAN,reduced B/L arms swings,etc Comments/Distance (ft) 1: 60 feet x 2 trials CARE Scores: Roll Left and Right: Assistance Needed: Independent CARE Score - Roll Left and Right: 6 Sit to Lying: Assistance Needed: Independent CARE Score - Sit to Lyin Lying to Sitting on Side of Bed: Assistance Needed: Independent CARE Score - Lying to Sitting on Side of Bed: 6 Sit to Stand: Assistance Needed: Independent CARE Score - Sit to Stand: 6 Chair/Hlx-qs-Ubbyu Transfer: Assistance Needed: Independent CARE Score - Chair/Nxi-tg-Ouelb Transfer: 6 Toilet Transfer: Assistance Needed: Independent CARE Score - Toilet Transfer: 6 Car Transfer: Reason if not Attempted: Medical concerns CARE Score - Car Transfer: 88 Walk 10 Feet: Assistance Needed: Supervision CARE Score - Walk 10 Feet: 4 Walk 50 Feet with Turns: Assistance Needed: Supervision CARE Score - Walk 50 Feet with Two Turns: 4 Walk 150 Feet: Reason if not Attempted: Medical concerns CARE Score - Walk 150 Feet: 88 Walk 10 Feet on Uneven Surface: Reason if not Attempted: Activity not applicable CARE Score - Walking 10 Feet on Uneven Surfaces: 9 1 Step (Curb): Assistance Needed: Supervision CARE Score - 1 Step (Curb): 4 4 Steps: Assistance Needed: Supervision CARE Score - 4 Steps: 4 12 Steps: Reason if not Attempted: Medical concerns CARE Score - 12 Steps: 88 Picking Up Object: Reason if not Attempted: Safety concerns CARE Score - Picking Up Object: 88 Wheel 50 Feet with Turns: Reason if not Attempted: Activity not applicable CARE Score - Wheel 50 Feet with Two Turns: 9 Wheel 150 Feet: Reason if not Attempted: Activity not applicable CARE Score - Wheel 150 Feet: 9 Objective Metrics: Unable without assistance Patient Education: Need to comply with energy conservation techniques and importance of self ex BLE Javi Davis PT,DPT * Dennise Loza NP - 09/28/2024 8:02 PM CDT Wound Assessment: S/P CABG Sternal wound with surgical glue, well attached edges, no sign of infection. CT site covered with eschar Right groin surgical wound well attached, no sign of infection. Right pre-tibial 14 cm at mid wound has opening has closed, dried and covered with eschar Treatment: Went to CV surgeon and asked no more dressings on the wounds. Continue to monitor * MIRTA Duvall - 09/28/2024 5:05 PM CDT Occupational Therapy Occupational Therapy Daily Treatment Patient Name: Deepthi Moore Today's Date: 09/28/2024 General Session Information: Treatment Duration (min): 15 Minutes Subjective Current Problem: Pt had no complaints today and waiting to leave for MD appt with . Objective Pain: Pain Assessment Pain Assessment: 0-10 (09/28/2024 1700) Pain Score: 0 (09/28/2024 1700) Treatment: Pt performed light therex within precautions 2x10 with rest. Hand gripper x20 reps. Sit to stand with RW SBA with functional transfers SBA with WC follow. Pts arrived to pick her up for appt. Will continue therapy next tx day. Activity Tolerance: Fair Patient Education: Education Documentation No documentation found. Education Comments No comments found. Supervising Occupational Therapist: Kim Early Patient progress towards current goals and plan of care was discussed in person with supervising Occupational Therapist. Lindsay Soto, COTACosigned by Kim Early OT at 10/01/2024 1:17 PM CDT * Javi Davis PT - 09/28/2024 3:00 PM CDT Physical Therapy Physical Therapy Daily Treatment Note Patient Name: Deepthi Moore Today's Date: 09/28/2024 General Session Information: Limited treatment session today as she had to go to 2-3 scheduled Physicians appointments Subjective Current Problem: Decreased strength BLE,,impaired functional activities tolerance,limited ambulation endurance and gait abnormality,assistance with stairs climbing Objective Pain: Pain Assessment Pain Assessment: 0-10 (09/28/2024 1245) Pain Score: 0 (09/28/2024 1245) Treatment: Therapeutic Exercise: AROM ex BLE in sitting x 15 reps each of hips fle/ext/add/abd,knees fle/ext and ankles DF/PF to enhance balance and safety during functional OOB activities Equipment Used: Equipment Use Comments: Omnicycle x 15 mins BLE using neur mode at level 2 resistance to facilitate cardiovascular and neuromuscular conditioning Functional Assessments: Transfers: Transfers Transfer: Yes Transfer 1 Transfer From 1: Sit, Stand Transfer Type 1: To and from Transfer to 1: Stand, Sit Technique 1: Stand pivot Transfer Device 1: (None) Level of Assistance 1: Setup/clean-up assistance Transfers 2 Transfer From 2: Bed, Wheelchair Transfer Type 2: To and from Transfer to 2: Wheelchair, Bed Technique 2: Stand pivot Level of Assistance 2: Supervision/touching assistance Ambulation 1: Surface 1: Level tile Device 1: No device Assistance 1: Supervision/touching assistance (SUP) Quality of Gait 1: Decreased B/L arms swings,narrow REAGAN,decreased B/L step length Comments/Distance (ft) 1: 100 feet CARE Scores: Roll Left and Right: Assistance Needed: Independent CARE Score - Roll Left and Right: 6 Sit to Lying: Assistance Needed: Independent CARE Score - Sit to Lyin Lying to Sitting on Side of Bed: Assistance Needed: Independent CARE Score - Lying to Sitting on Side of Bed: 6 Sit to Stand: Assistance Needed: Independent CARE Score - Sit to Stand: 6 Chair/Vqn-lj-Dwyxj Transfer: Assistance Needed: Independent CARE Score - Chair/Umw-rh-Mvllu Transfer: 6 Toilet Transfer: Assistance Needed: Independent CARE Score - Toilet Transfer: 6 Car Transfer: Reason if not Attempted: Medical concerns CARE Score - Car Transfer: 88 Walk 10 Feet: Assistance Needed: Supervision CARE Score - Walk 10 Feet: 4 Walk 50 Feet with Turns: Assistance Needed: Supervision CARE Score - Walk 50 Feet with Two Turns: 4 Walk 150 Feet: Reason if not Attempted: Medical concerns CARE Score - Walk 150 Feet: 88 Walk 10 Feet on Uneven Surface: Reason if not Attempted: Activity not applicable CARE Score - Walking 10 Feet on Uneven Surfaces: 9 1 Step (Curb): Assistance Needed: Supervision CARE Score - 1 Step (Curb): 4 4 Steps: Assistance Needed: Supervision CARE Score - 4 Steps: 4 12 Steps: Reason if not Attempted: Medical concerns CARE Score - 12 Steps: 88 Picking Up Object: Reason if not Attempted: Safety concerns CARE Score - Picking Up Object: 88 Wheel 50 Feet with Turns: Reason if not Attempted: Activity not applicable CARE Score - Wheel 50 Feet with Two Turns: 9 Wheel 150 Feet: Reason if not Attempted: Activity not applicable CARE Score - Wheel 150 Feet: 9 Objective Metrics: Time Up and Go: Unable without assistance Patient Education: Safety with transfers,energy conservation techniques and importance of self excs BLE Javi Davis PT,DPT * Pat Chambers PTA - 09/27/2024 4:53 PM CDT Physical Therapy Physical Therapy Daily Treatment Note Patient Name: Deepthi Moore Today's Date: 09/27/2024 General Session Information: No pain claimed while in rehab session. Bp at rest & sitting in her w/c at 124/64. During tx her bp at 101/78 at sitting. Current Problem: Low Bp, sternal prec, stdg balance deficits, low tolerance fr therapeutic act, maranda LE ms weakness. Pain: Pain Assessment Pain Assessment: 0-10 (09/27/20241644) Pain Score: 0 (09/27/20241644) Pain Rating Scale (DVPRS): No pain (09/27/20241644) Treatment: Therapeutic Exercise: Cont to worked on maranda LE HEP x 15 rep x 2 sets w/ 2# wt on ea ankle at supported sitting. Needs frequent cues to inc ROM. Ex at supported sitting. Equipment Used: Performed Omnicycle LE ex at Cardio 6W to inc maranda LE ms strength, cardio conditioning, & tolerance/endurance since pt have low tolerance. Therapeutic Activity: Needs spv fr bed<>w/c. Mod I in bed mob. Needs cues to observe sternal prec & WB to her maranda UE. Ambulation 1: Amb only 75' w/ no assistive device at CGA/SBA. Unable to amb on the 2nd trial due to c/o fatigue. No LOB noted. Patient Education: Educate on safe transfer & importance of HEP to gain ms strength & tolerance. Supervising Physical Therapist: Leida Luther, EMIL Cosigned by Lucille Luther, PT at 09/28/2024 3:45 PM CDT * MIRTA Duvall - 09/27/2024 1:01 PM CDT Occupational Therapy Occupational Therapy Weekly Progress Note General Session Information: Treatment Duration (min): 30 Minutes Subjective Current Problem: Pt has no complaints of pain however B/P was low in morning. Pts B/P prior to starting 124/64 83 HR. Objective Pain: Pain Assessment Pain Assessment: 0-10 (09/27/2024 1200) Pain Score: 0 (09/27/2024 1200) Treatment: Pts B/P checked and then pt seen for BUE therex with 2# on R and 1# on L UE within precautions 2x15 with rest between. Hand gripper x20 reps. Omnicycle with minimal resistance and no c/o pain during with rest between ~10 mins with 90% activity. Pt resistant to performing standing activity as B/P goes low so pt taken back to room for lunch. Activity Tolerance: Fair Patient Education: Education Documentation No documentation found. Education Comments No comments found. Goals:Encounter Goals Encounter Goals (Active) Patient will perform bathing with Independent assist to improve independencewith ADLs. (Not Progressing) Start: 09/21/24 Expected End: 10/12/24 Goal Note 09/27/2024 MJ: not tested Patient will perform toileting with Independent assist to improve independence with ADLs. (Progressing) Start: 09/21/24 Expected End: 10/12/24 Goal Note 09/27/24 SBA/Sup Patient will improve Time Up and Go Test to 15 seconds in order to increase safety with mobility during ADLs. (Not Progressing) Start: 09/21/24 Expected End: 10/12/24 Goal Note 09/27/24 not tested Patient will improve 30 Second Sit to Stand Test by 10 stands in order to promote safe mobility with ADL tasks. (Not Progressing) Start: 09/21/24 Expected End: 10/12/24 Goal Note 09/27/24 not tested Patient will increase dynamic standing balance to Mi during ADLs in order to reduce fall risk during self-care tasks. (Progressing) Start: 09/21/24 Expected End: 10/12/24 Goal Note 09/27/24 CGA/SBA Assessment & PlanAssessment: Pt keeping active and following precautions. Pts B/P and fatigue are barriers to progress. Pt demonstrating increased independence with toileting, dressing and functional transfers. Pt sitting up in WC during day. Plan: Will continue to address goals to reach maximum potential. Supervising Occupational Therapist: Kim Early Patient progress towards current goals and plan of care was discussed in person with supervising Occupational Therapist. Lindsay Soto, COTACosigned by Kim Early OT at 09/27/2024 3:05 PM CDT * Pat Chambers, SUPPORT ASSISTANT - 09/26/2024 4:40 PM CDT Physical Therapy Physical Therapy Weekly Progress Note Patient Name: Deepthi Moore Today's Date: 09/26/2024 General Visit Information: No pain reported before, during, & post rehab session. Bp & Hr at sitting before therapy at 123/59 & 77 bpm. After tx at 110/54 & 87 bpm. Current Problem: Stdg balance impairment w/out support, low tolerance level fr therapeutic act, cardio problems. Pain: Pain Assessment Pain Assessment: 0-10 (09/26/20241599) Pain Score: 0 (09/26/20241599) Pain Rating Scale (DVPRS): No pain (09/26/20241599) Treatment: Therapeutic Exercise: Exercises Hip Flexion: HEP x 15 rep x 2 sets w/ 2# wt on ea ankle at supported sitting Hip ABduction: HEP x 15 rep x 2 sets w/ 2# wt on ea ankle Knee AROM : HEP x 15 re. x 2 sets w/ 2# wt on ea ankle Ankle Pumps: HEP x 15 rep. x 2 sets w/ 2# wt on ea ankle Equipment Used: Recumbent Bike Comments: Maranda LE ex using the Omnicycle at Cardio 4W & w/ 98% total act Therapeutic Activity: Mod I in bed mob. Needs SBA + cues on std pvt transfer fr bed<>w/c. Balance/Neuromuscular Re-Education: Balance/Neuromuscular Re-Education Activity 1: Focused on static stdg balance unsupported by performing maranda heel raises & mini knee squatting x 15 rep. x 2 sets + stance for 2 min & w/out LOB. Balance/Neuromuscular Re-Education Activity 2: Worked on dynamic stdg balance w/out support by amb. forward/backward & side-stepping at 5' ea x 2 rep. No LOB noted. Functional Assessments: Bed Mobility: Bed Mobility Bed Mobility: Yes Bed Mobility 1 Bed Mobility From 1: Supine, Short sit Bed Mobility Type 1: To and from Bed Mobility to 1: Short sit, Supine Level of Assistance 1: Independent Transfers: Transfers Transfer: Yes Transfer 1 Transfer From 1: Bed, Wheelchair Transfer Type 1: To and from Transfer to 1: Wheelchair, Bed Technique 1: Stand pivot Transfer Device 1: (None) Level of Assistance 1: Supervision/touching assistance (SBA + cues) Transfers 2 Transfer From 2: Bed, Wheelchair Transfer Type 2: To and from Transfer to 2: Wheelchair, Bed Technique 2: Stand pivot Level of Assistance 2: Supervision/touching assistance Ambulation 1: Surface 1: Level tile Device 1: No device Assistance 1: Supervision/touching assistance (CGA/SBA + cues) Quality of Gait 1: Stable gt but needs cues to inc stride length Amb 100' x 2 rep at CGA/SBA & w/out assistive device. Patient Education: Cont to work & educate on safe transfers & stdg balance act. Goals: Encounter Goals Encounter Goals (Active) Patient will progress to ambulate on even surfaces using LRAD/No device with Mod I for >500 feet and with good balance (Progressing) Start: 09/21/24 Expected End: 10/24/24 Goal Note Amb 100' x 2 rep. w/ no assistive device at CGA/SBA. Patient will progress ascending and descending 17 steps with B/L railings in appropriate manner with Mod I in order to improve access to home. (Progressing) Start: 09/21/24 Expected End: 10/24/24 Goal Note Up/down the stairs at 9 steps w/ CGA/SBA + cues for balance & safetyprocedures. Within 4 weeks of starting therapy, the patient and/or family/caregiver will demonstrate independence and be compliant in a written HEP in order to maximize gains made during therapy. (Progressing) Start: 09/21/24 Expected End: 10/24/24 Goal Note Initiated maranda LE HEP x 15 rep. X 2 sets w/ applied 2# wt on ea ankle atsupported sitting. Improve LE Muscle strength to 5/5 in order to facilitate improved functional mobility and ambulation. (Progressing) Start: 09/21/24 Expected End: 10/24/24 Goal Note Gross maranda LE ms strength at 4+/5. Patient will participate in dynamic standing balance activities with Mod I for 10 minutes in order to decrease LOB and facilitate safe functional mobility. (Progressing) Start: 09/21/24 Expected End: 10/24/24 Goal Note Worked on dynamic stdg balance unsupported at CGA/SBA + cues for properexecution of task. Assessment & PlanPt cont to progressively improving in functional mobilities that req'd no assistance at all & just at SBA->spv + cues for proper execution of task. Although her tolerance level fr therapeutic act still low & also will cont to monitor her bp as a safety factor. Pt cont to amb at ~100' x 2 rep w/ no assistive device at CGA/SBA + cues for balance & safety. On the other hand, pt will cont POC to attain therapy goals. Supervising Physical Therapist: Leida Luther, EMILCosigned by Lucille Luther PT at 09/27/2024 9:45 AM CDT * Petra Vaughan MD - 09/26/2024 3:22 PM CDT Images from the original note were not included. [facility] Progress Note Subjective Patient is doing well today. She had an appointment with her parking analyst today. She is voiding, stooling, and urinating appropriately. Per PT/OT, she has been making great progress with going up the stairs and walking. Hospital Course: Deepthi Moore is a 68 y.o. female with PMH CAD s/p CABGx4, insulin-dependent T2DM, hypertension, HLD, and PAD who presented with symptomatic angina and a positive stress test leading to LH catheterization and CABG x4 with right great saphenous vein graft. She was monitored in the CV ICU intubated on pressors in cardiogenic shock for a few days then transferred to the CV IMU. Echocardiogram was performed on 08/28/24 which showed reduced ejection fraction of 40-45%. Her chest tube was removed 09/02. She was deemed stable for transfer to nursing home facility on 09/06/24 for further rehabilitation, however, she developed signs of sepsis and was readmitted at [facility] for E. Coli septicemia. She was re-transferred to nursing home facility on 09/20/24. Code Status: Full code Medical Power of Box Coverer Hand: Her son, pending official documentation Living Situation: Patient lives alone in a 2nd story apartment. She was fully functional with all IADLs/ADLs prior to hospitalization. She has a who lives separately from her in [place] and is able to help her during this time Objective Last Recorded Vitals Blood pressure 128/61, pulse 81, temperature 37 ?C (98.6 ?F), temperature source Oral, resp. rate 17, height 1.65 m (5' 4.96"), weight 78.7 kg (173 lb 9.6 oz), SpO2 98%. Body mass index is 28.92 kg/m?. Physical Exam: Physical Exam: Constitutional: Appearance: Normal appearance. HENT: Head: Normocephalic and atraumatic. Right Ear: External ear normal. Left Ear: External ear normal. Nose: Nose normal. Mouth/Throat: Mouth: Mucous membranes are moist. Eyes: Extraocular Movements: Extraocular movements intact. Conjunctiva/sclera: Conjunctivae normal. Cardiovascular: Rate and Rhythm: Normal rate and regular rhythm. Heart sounds: No murmur heard. Pulmonary: Effort: Pulmonary effort is normal. Breath sounds: Examination of the left-lower field reveals decreased breath sounds. Decreased breath sounds present. No wheezing. Abdominal: General: Abdomen is flat. Palpations: Abdomen is soft. Tenderness: There is no abdominal tenderness. Musculoskeletal: General: Normal range of motion. Cervical back: Normal range of motion. Right lower leg: Edema (1+ mid calf) present. Left lower leg: Edema (trace) present. Skin: General: Skin is warm and dry. Findings: Wound (R lower leg wound with soaked dressing with dried blood but not active bleeding, R groin wound, sternotomy, and lower chest wound) present. Neurological: General: No focal deficit present. Mental Status: She is alert and oriented to person, place, and time. Psychiatric: Mood and Affect: Mood normal. Behavior: Behavior normal. Right lower calf wound Assessment & Plan History of E. coli septicemia Complicated urinary tract infection Asymptomatic and VSS S/p IV cefepime, cefazolin, ceftriaxone, and doxycycline Continue Levofloxacin 750 mg daily, day 08/07 (end 09/29/24) ID follow-up oupt with Dr. 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 Hyperlipidemia 08/26/24 S/p CABG x4 with HELM to the LAD, Reversed saphenous vein graft from the aorta to the first diagonal and the OM, Reversed saphenous vein graft from the aorta to the PDA (RCA), Exclusion of the left atrial appendage with an AtriClip on 08/28/24 Carotid U/S showed no significant stenosis 08/29/24 Echocardiogram showed reduced EF of 40-45% Continue aspirin, plavix, and statin Sternotomy incision c/d/I Lower chest wound c/d, use non-adherent strips Change border dressing daily on lower chest wound and R groin wound Right surgical wound, apply Calcium alginate with silver and cover with border dressing daily Pain regimen: Tylenol 650 mg q8h, robaxin 750 mg TID PT/OT Repeat BMP 09/25 wnl Acute combined systolic (congestive) and diastolic (congestive) heart failure 08/29/24 Echocardiogram showed reduced EF of 40-45% Repeat echo outpt with cardiology follow-up GDMT: On BB, carvedilol. Consider SGLT2, DANILO, and MRA outpatient Lasix 40 mg PO daily Repeat BMP 09/25 ordered Type 2 diabetes mellitus with hyperglycemia, with long-term current use of insulin (HCC) Blood sugars still not at goal Increase lantus to 45 units in the morning and 42 units in the evening Medium SSI Essential (primary) hypertension Continue BB Consider DANILO Normocytic anemia Anemia of chronic disease vs acute blood loss anemia 09/19/24: Hgb 9.8, MCV 83.8 Repeat CBC 09/25 wnl Open-angle glaucoma Continue brimonidine, timolol, and latanoprost Current Diet: Adult Diet Regular; 4 gm Sodium, No concentrated sweets Plan for DC: pending PT/OT DME: TBD Home Health: TBD Activity: TBD PCP Follow-up: TBD Additional Follow-ups: TBD DME available: None Patient and plan discussed with attending physician Dr. Lizabeth Vaughan MD PGY-2, [facility] [place] [facility] #[id number] August 3:27 PM Cosigned by Maricel Barone MD at 09/27/2024 10:00 AM CDT Associated attestation - Maricel Barone MD - 09/27/2024 10:00 AM CDT I saw and evaluated the patient, participating in the doty portions of the service. I reviewed the resident's note. I agree with the resident's findings and plan. * Milind Obrien OT - 09/26/2024 11:42 AM CDT Occupational Therapy Occupational Therapy Daily Treatment Patient Name: Deepthi Moore Today's Date: 09/26/2024 General Session Information: Patient was seen following PT Tx. Patient was seen for generalized weakness and balance impairments as well as endurance. During balance tx patient began to feel dizzy and a lower BP was discovered patient was asked to sit down. Patient rested and participated and completed exercises after BP stabilized Subjective Current Problem: UE weakness limits ADL particioation Objective Self-Care CARE Scores: Eating: Assistance Needed: Independent CARE Score - Eatin Oral Hygiene: Assistance Needed: Independent CARE Score - Oral Hygiene: 6 Toileting Hygiene: Assistance Needed: Supervision Physical Assistance Level: No physical assistance CARE Score - Toileting Hygiene: 4 Shower/Bathe Self: Assistance Needed: Supervision CARE Score - Shower/Bathe Self: 4 Upper Body Dressing: Assistance Needed: Supervision CARE Score - Upper Body Dressin Lower Body Dressing: Assistance Needed: Supervision CARE Score - Lower Body Dressin Putting On/Taking Off Footwear:: Assistance Needed: Supervision CARE Score - Putting On/Taking Off Footwear: 4 Treatment: Therapeutic Exercise: Exercise Tools: Exercise Tools Exercise Tools: Yes UE Ergometer: 15 minutes 97 activity level 2 resistance Hand Gripper: 2 sets of 15 min resistance Other Exercise Tool 2: Free Weights 2lbs 3 sets of 15 Other Exercise Tool 3: Flex Bar 3 sets of 15 min Resistance 3 sets of 15 Up and down Therapeutic Activity: Therapeutic Activities: Yes Therapeutic Activity 1: Transitional movement (2 Sets of sit to stand with no hands CGA) Therapeutic Activity 2: Balance, dynamic standing ([facility] Activity patient got dizzy from standing to quickly blood pressure dropped to 96/53 patient was asked to sit down eat snack.) Activity Tolerance: Activity Tolerance Evaluation/Treatment Tolerance: Patient tolerated treatment well Milind Obrien OT * Fernando Herron PT - 09/24/2024 3:35 PM CDT Physical Therapy Physical Therapy Daily Treatment Note Patient Name: Deepthi Moore Today's Date: 09/24/2024 General Session Information: Subjective : " I am ready to work with you" Patient agreed for therapy session Objective Pain:No c/o pain at this time. Treatment: Performed functional transfers with SBA/supervision- reminders on sternal precautions. Gait: 140 +70 feet with out assistive device and with SBA- verbal cues for postural correction. Stairs: trained on stairs- able ascend/descend 9 stairs with CGA. Performed omnicycle, Neuro # 1 for 15 min to improve strength and endurance. Functional Assessments:Transfers: Transfers Transfer: Yes Transfer 1 Transfer From 1: Bed Transfer Type 1: To and from Transfer to 1: Wheelchair Technique 1: Stand pivot Transfer Device 1: (None) Level of Assistance 1: Supervision/touching assistance Transfers 2 Transfer From 2: Bed, Wheelchair Transfer Type 2: To and from Transfer to 2: Wheelchair, Bed Technique 2: Stand pivot Level of Assistance 2: Supervision/touching assistance Ambulation 1:Surface 1: Level tile Device 1: No device Assistance 1: Supervision/touching assistance Quality of Gait 1: Steady gait, decreased gait velocity Comments/Distance (ft) 1: 140 +70 feet Stairs 1: Rails 1: Right, Left Device 1: No device Assistance 1: Supervision/touching assistance Comment/Number of Steps 1: 9 Patient Education: On safety, sternal precautions. Fernando Herron PT,DPT * Lindsay Soto PTA - 09/23/2024 5:14 PM CDT Occupational Therapy Occupational Therapy Daily Treatment Patient Name: Deepthi Moore Today's Date: 09/23/2024 General Session Information: Treatment Duration (min): 45 Minutes Subjective Current Problem: Pt had no complaints. Pt had episode of nose drainage which nursing and MD is aware of. Objective Pain: Pain Assessment Pain Assessment: 0-10 (09/23/2024 1700) Pain Score: 0 (09/23/2024 1700) Treatment: Pt seen for bed mobility Supervision. Sit to stand and Spt to WC SBA/CGA. Omnicycle with no resistance ~15 mins with few stops to answer phone and speak to nursing. Light therex with 1# all planes within precautions 2x10 with rest between. Forearm, wrist and hand ROM x20 reps. Hand gripper x20 reps. Sit to stand with standing activity on table 4 mins 34 seconds SBA. Rest given after. Time needed as pt was having conversation regarding family and past experiences with health. Activity Tolerance: Fair/F+ Patient Education: Education Documentation No documentation found. Education Comments No comments found. Supervising Occupational Therapist: Kim Early Patient progress towards current goals and plan of care was discussed in person with supervising Occupational Therapist. Lindsay Soto PTACosigned by Kim Early OT at 09/26/2024 4:54 PM CDT * Javi Davis, PT - 09/23/2024 11:47 AM CDT Physical Therapy Physical Therapy Daily Treatment Note Patient Name: Deepthi Moore Today's Date: 09/23/2024 General Session Information: Her main limiting factor remains impaired functional activities tolerance with resultant requirement of fairly frequent rest periods during treatment. Her BP and HR stable during treatment session today.At rest in sitting- BP 116/66 with a HR of 72,after ther excs in sitting BP112/63 with HR of 73 and after ascending/descending 9 steps with B/L railings in sitting BP 112/58 with HR of 83 Subjective Current Problem: Decreased strength BLE,impaired functional activities tolerance,limited ambulation endurance,min transfers dependency and min assistance with going up/down stairs Objective Pain: Pain Assessment Pain Assessment: 0-10 (09/23/2024 104) Pain Score: 0 (She denies any pain) (09/23/2024 104) Treatment: Therapeutic Exercise: Exercises Hip Flexion: PRE B/L hips fle x 20 reps in sitting with 2# cuff wts Hip ABduction: PRE B/L hips add/abd x 20 reps in sitting with 2# cuff wts Knee AROM : PRE B/L knees fle/ext x 20 reps in sitting with 2# cuff wts Ankle Pumps: PRE B/L ankles DF/PF x 20 reps in sitting with 2# cuff wts Equipment Used: Equipment Use Comments: Omnicycle BLE X 15 mins using neuro mode at level 1 to facilitate cardiovascular and neuromuscular conditioning/endurance Functional Assessments: Bed Mobility: Bed Mobility Bed Mobility: Yes Bed Mobility 1 Bed Mobility From 1: Supine, Short sit Bed Mobility Type 1: To and from Bed Mobility to 1: Short sit, Supine Level of Assistance 1: Independent Transfers: Transfers Transfer: Yes Transfer 1 Transfer From 1: Sit, Stand Transfer Type 1: To and from Transfer to 1: Stand, Sit Technique 1: Stand pivot Level of Assistance 1: Setup/clean-up assistance Transfers 2 Transfer From 2: Bed, Wheelchair Transfer Type 2: To and from Transfer to 2: Wheelchair, Bed Technique 2: Stand pivot Level of Assistance 2: Supervision/touching assistance Ambulation 1: Surface 1: Level tile Device 1: No device Assistance 1: Supervision/touching assistance (Close SUP) Quality of Gait 1: Reduced B/L arms swings,narrow REAGAN,decreased B/L step length,etc Comments/Distance (ft) 1: 100 feet Stairs 1: Rails 1: Bilateral Device 1: No device Assistance 1: Supervision/touching assistance (Close SUP) Comment/Number of Steps 1: 9 in [id number]-[id number] manner Objective Metrics: Time Up and Go: Unable without assistance Patient Education: Safety with transfers and importance of energy conservation techniques Javi Davis PT,DPT * Farhana Wilson OT - 09/22/2024 5:33 PM CDT Occupational Therapy Occupational Therapy Daily Treatment Patient Name: Deepthi Moore Today's Date: 09/22/2024 General Session Information: Pt participated in B UE strengthening/endurance, transitional movement, and stand tolerance activity Subjective Current Problem: Pt has impaired endurance. Objective Pain: Pain Assessment Pain Assessment: 0-10 (09/22/2024 1400) Pain Score: 0 (09/22/2024 1400) Self-Care: ADL UE Dressing Assistance: Supervision/touching assistance UE Dressing Deficit: Fasteners (fastening bra) LE Dressing Assistance: Setup/clean-up assistance LE Dressing Deficit: Don/doff L sock, Don/doff R sock Treatment: Pt required CGA with bed mobility in preparation for transfers. Pt at rest vitals read BP-132/69, 99%SPO2, and heart rate 86. Post hand gripper exercise pt vitals read BP 111/68, SPO2-99%, and 84 heart rate. While in gym pt kept falling asleep. Pt noted wanting to go back to her room and have her sugar levels checked. Nursing made aware. Therapeutic Exercise: Exercise Tools: Exercise Tools Exercise Tools: Yes UE Ergometer: 15 minutes no resistance Hand Gripper: 1/20x min resistance Other Exercise Tool 2: B Shoulder strengthening in all planes using light resistance yellow weighted dowel 2/20x within limits/precautions (Modified left hand positioning around dowel to increase tolerance) Therapeutic Activity: Therapeutic Activities: Yes Therapeutic Activity 1: Transitional movement (functional mobility (~40 feet) CGA required; 3 sit<>stand transfers performed with CGA) Therapeutic Activity 2: Other (comment) (Standing tolerance activity with CGA using brush) Activity Tolerance: Fair Farhana Wilson OT * Karisbob Susan, PT - 09/22/2024 3:16 PM CDT Physical Therapy Physical Therapy Daily Treatment Note Patient Name: Deepthi Moore Today's Date: 09/22/2024 General Session Information: She participated actively with skilled PT.Her vital signs pre- treatment BP 126/60 with HR of 77,after stairs climbing BP 151/73 with a HR of 80 and post ambulation BP 114/56 with a HR of 84.She deniied any significant pain in her extremities Subjective Current Problem: Impaired functional activities tolerance,limited ambulation endurance,gait abnormality and decreased strength BLE. Objective Pain: Pain Assessment Pain Assessment: 0-10 (09/22/2024 104) Pain Score: 0 (She denies any pain) (09/22/2024 1041) Treatment: Therapeutic Exercise: Exercises Hip Flexion: PRE with 2# cuff wts in sitting x 20 reps Hip ABduction: PRE with 2# cuff wts in sitting x 20 reps Knee AROM : PRE with 2# cuff wts in sitting x 20 reps Ankle Pumps: PRE with 2# cuff wts in sitting x 20 reps Equipment Used: Equipment Use Comments: Omnicycle x 15 mins BLE using neurro mode at level 2 to facilitate cardiovascular and neuromuscular conditioning Functional Assessments: Bed Mobility: Bed Mobility Bed Mobility: Yes Bed Mobility 1 Bed Mobility From 1: Supine, Short sit Bed Mobility Type 1: To and from Bed Mobility to 1: Short sit, Supine Level of Assistance 1: Independent Transfers: Transfers Transfer: Yes Transfer 1 Transfer From 1: Bed, Wheelchair Transfer Type 1: To and from Transfer to 1: Wheelchair, Bed Technique 1: Stand pivot Level of Assistance 1: Independent Transfers 2 Transfer From 2: Sit, Stand Transfer Type 2: To and from Transfer to 2: Stand, Sit Level of Assistance 2: Independent Ambulation: Surface 1: Level tile Device 1: No device Assistance 1: Supervision/touching assistance Quality of Gait 1: 80 feet x 2 Stairs 1: Rails 1: Bilateral Device 1: No device Assistance 1: Supervision/touching assistance Comment/Number of Steps 1: 9 steps x 2 with Close SUP and in bob-to step manner CARE Scores: Roll Left and Right: Assistance Needed: Independent CARE Score - Roll Left and Right: 6 Sit to Lying: Assistance Needed: Independent CARE Score - Sit to Lyin Lying to Sitting on Side of Bed: Assistance Needed: Independent CARE Score - Lying to Sitting on Side of Bed: 6 Sit to Stand: Assistance Needed: Independent CARE Score - Sit to Stand: 6 Chair/Lqq-mi-Ncoum Transfer: Assistance Needed: Independent CARE Score - Chair/Dmy-gd-Xqdwu Transfer: 6 Toilet Transfer: Assistance Needed: Independent CARE Score - Toilet Transfer: 6 Car Transfer: Reason if not Attempted: Medical concerns CARE Score - Car Transfer: 88 Walk 10 Feet: Assistance Needed: Supervision CARE Score - Walk 10 Feet: 4 Walk 50 Feet with Turns: Assistance Needed: Supervision CARE Score - Walk 50 Feet with Two Turns: 4 Walk 150 Feet: Reason if not Attempted: Medical concerns CARE Score - Walk 150 Feet: 88 Walk 10 Feet on Uneven Surface: Reason if not Attempted: Activity not applicable CARE Score - Walking 10 Feet on Uneven Surfaces: 9 1 Step (Curb): Assistance Needed: Supervision CARE Score - 1 Step (Curb): 4 4 Steps: Assistance Needed: Supervision CARE Score - 4 Steps: 4 12 Steps: Reason if not Attempted: Medical concerns CARE Score - 12 Steps: 88 Picking Up Object: Reason if not Attempted: Safety concerns CARE Score - Picking Up Object: 88 Wheel 50 Feet with Turns: Reason if not Attempted: Activity not applicable CARE Score - Wheel 50 Feet with Two Turns: 9 Wheel 150 Feet: Reason if not Attempted: Activity not applicable CARE Score - Wheel 150 Feet: 9 Patient Education: Importance of self excs BLE and need to be aware of energy conservation techniques Javi Davis PT,DPT * Dennise Loza NP - 09/21/2024 8:58 PM CDT Wound Assessment: S/P CABG Sternal wound with surgical glue, well attached edges, no sign of infection. CT site covered with eschar Right groin surgical wound well attached, no sign of infection. Right pre-tibial 14 cm at mid wound has opening about 3cm slight serosanguinous drainage Treatment: Right surgical wound with serosanguinous drainage, clean with NS, pat dry. Apply Calcium alginate with silver and cover with border dressing daily * Hammad Carranza PharmD - 09/21/2024 3:40 PM CDT Pharmacy Medication Reconciliation Name: Deepthi Moore : 1955 Age: 68 y.o. Sex: female Ht/Wt: 1.65 m (5' 4.96") 78.7 kg (173 lb 9.6 oz) Allergy Discrepancy: No issues found . Admission Medication Reconciliation Completed: Yes Patient admitted from: [facility] Discrepancies noted between admit orders and MAR from outside hospital/home medication list: No issues found . Hammad Carranza PharmD * Javi Davis, PT - 09/21/2024 2:55 PM CDT Physical Therapy Physical Therapy Evaluation and Treatment Patient Name: Deepthi Moore Today's Date: 09/21/2024 General Session Information: She participated actively and tolerated treatment session well.She's highly motivated to regain her PLOF.BP and HR post Tx 141/75 and 96 respectively Subjective Current Problem: Decreased strength BLE,limited ambulation endurance,min assistance with ascending/descending 9 steps,impaired functional activities tolerance Objective Precautions: UE Weight Bearing Status: FWB LE Weight Bearing Status: FWB Medical Precautions: Cardiac,Falls,Diabetic,Sternal,[place] Post-Surgical Precautions: Sternal,Healing surgical incision site in his sternum Home Living: Type of Home: Apartment Lives With: Alone Home Layout: Two level Home Access: Stairs to enter with rails (On both sides) Entrance Stairs-Number of Steps: 17 Bathroom Shower/Tub: Tub/shower unit Bathroom Toilet: Standard Bathroom Accessibility: .Has a wak in shower only downstairs Prior Level of Function: Level of [place]: Independent with ADLs and functional transfers, Independent with homemaking with ambulation Receives Help From: Family, Friends, Neighbor ADL Assistance: Independent Homemaking Assistance: Independent Vocational: Retired Pain: Pain Assessment Pain Assessment: 0-10 (09/21/2024 125) Pain Score: 0 (09/21/2024 125) General Assessments: Dyspnea Occurrence: Other (Comment) (Min with exertion) Activity Tolerance: Endurance: Tolerates 30 min exercise with multiple rests Sitting Balance: Moves/returns truncal midpoint more than 2 inches in all planes Early Mobility/Exercise Safety Screen: Proceed with mobilization - No exclusion criteria met Functional Limitation in Range of Motion: Upper Extremity (Shoulder, Elbow, Wrist, Hand): No impairment Lower Extremity (Hip, Knee, Ankle, Foot): No impairment Balance: Balance During Transitions and Walking Moving From Seated to Standing Position: Steady at all times Turning Around and Facing Opposite Direction While Walking: Steady at all times Irzdedr-Cn-Ddrhvhm Transfer (Transfer Between Bed and Chair or Wheelchair): Steady at all times Postural Control: Postural Control Postural Control: Within Functional Limits Dynamic Sitting Balance: Dynamic Sitting Balance Dynamic Sitting-Balance Support: No upper extremity supported Dynamic Sitting-Balance: Lateral lean, Forward lean Static Standing Balance: Static Standing Balance Static Standing-Balance Support: No upper extremity supported Dynamic Standing Balance: Dynamic Standing Balance Dynamic Standing-Balance Support: No upper extremity supported Dynamic Standing-Balance: Lateral lean, Forward lean Coordination: Coordination Movements are Fluid and Coordinated: Yes Vision: Vision - Basic Assessment Current Vision: Does not wear glasses Cognition: Overall Cognitive Status: Within Functional Limits Behavior/Cognition: Alert, Cooperative, Pleasant mood Orientation Level: Oriented X4 Sensation: Sensation Light Touch: No apparent deficits Sharp/Dull: No apparent deficits Functional Assessments: Bed Mobility: Bed Mobility Bed Mobility: Yes Bed Mobility 1 Bed Mobility From 1: Prone, Short sit Bed Mobility Type 1: To and from Bed Mobility to 1: Short sit, Supine Level of Assistance 1: Independent Transfers: Transfers Transfer: Yes Transfer 1 Transfer From 1: Sit, Stand Transfer Type 1: To and from Transfer to 1: Stand, Sit Level of Assistance 1: Independent Transfers 2 Transfer From 2: Bed, Chair with arms (B/S chair) Level of Assistance 2: Independent Ambulation 1: Surface 1: Level tile Device 1: No device Assistance 1: Supervision/touching assistance Quality of Gait 1: 80 feet x 2 Stairs 1: Rails 1: Bilateral Device 1: No device Assistance 1: Supervision/touching assistance Comment/Number of Steps 1: 9 CARE Scores: Roll Left and Right: Assistance Needed: Independent CARE Score - Roll Left and Right: 6 Sit to Lying: Assistance Needed: Independent CARE Score - Sit to Lyin Lying to Sitting on Side of Bed: Assistance Needed: Independent CARE Score - Lying to Sitting on Side of Bed: 6 Sit to Stand: Assistance Needed: Independent CARE Score - Sit to Stand: 6 Chair/Tgy-xq-Vsisj Transfer: Assistance Needed: Independent CARE Score - Chair/Vgy-wm-Ftmfs Transfer: 6 Toilet Transfer: Assistance Needed: Independent CARE Score - Toilet Transfer: 6 Car Transfer: Reason if not Attempted: Medical concerns CARE Score - Car Transfer: 88 Walk 10 Feet: Assistance Needed: Supervision CARE Score - Walk 10 Feet: 4 Walk 50 Feet with Turns: Assistance Needed: Supervision CARE Score - Walk 50 Feet with Two Turns: 4 Walk 150 Feet: Reason if not Attempted: Medical concerns CARE Score - Walk 150 Feet: 88 Walk 10 Feet on Uneven Surface: Reason if not Attempted: Activity not applicable CARE Score - Walking 10 Feet on Uneven Surfaces: 9 1 Step (Curb): Assistance Needed: Supervision CARE Score - 1 Step (Curb): 4 4 Steps: Assistance Needed: Supervision CARE Score - 4 Steps: 4 12 Steps: Reason if not Attempted: Medical concerns CARE Score - 12 Steps: 88 Picking Up Object: Reason if not Attempted: Safety concerns CARE Score - Picking Up Object: 88 Wheel 50 Feet with Turns: Reason if not Attempted: Activity not applicable CARE Score - Wheel 50 Feet with Two Turns: 9 Wheel 150 Feet: Reason if not Attempted: Activity not applicable CARE Score - Wheel 150 Feet: 9 Extremity Assessments: Right Upper Extremity: RUE Assessment RUE Assessment: Within Functional Limits RUE Strength RUE Overall Strength: Within Functional Limits - able to perform ADL tasks with strength Left Upper Extremity: LUE Assessment LUE Assessment: Within Functional Limits LUE Strength LUE Overall Strength: Within Functional Limits - able to perform ADL tasks with strength Right Lower Extermity: RLE Assessment RLE Assessment: (4/5 strength RLE) Left Lower Extremity: LLE Assessment LLE Assessment: (4/5 strength LLE) Objective Metrics: Time Up and Go: Treatment: Therapeutic Exercise: AROM ex BLE in sitting x 20 reps each of hips fle/ext/add/abd,knees fle/ext and ankles DF/PF to facilitate balance and limbs advancement during functional in/out of bed activities Equipment Used:Omnicycle x 15 mins BLE with #1 resistance using neuro mode to enhance cardiovascular and neuromuscular conditioning Patient Education:Education Documentation Fall Prevention, taught by Javi Davis PT at 09/21/2024 2:49 PM. Learner: Patient Readiness: Acceptance Method: Demonstration, Explanation Response: Verbalizes Understanding, Demonstrated Understanding Home Exercise Program, taught by Javi Davis PT at 09/21/2024 2:49 PM. Learner: Patient Readiness: Acceptance Method: Demonstration, Explanation Response: Verbalizes Understanding, Demonstrated Understanding Physical Therapy Plan of Care, taught by Javi Davis PT at 09/21/2024 2:49 PM. Learner: Patient Readiness: Acceptance Method: Demonstration, Explanation Response: Verbalizes Understanding, Demonstrated Understanding Precautions, taught by Javi Davis PT at 09/21/2024 2:49 PM.Learner: Patient Readiness: Acceptance Method: Demonstration, Explanation Response: Verbalizes Understanding, Demonstrated Understanding Mobility, taught by Javi Davis PT at 09/21/2024 2:49 PM.Learner: Patient Readiness: Acceptance Method: Demonstration, Explanation Response: Verbalizes Understanding, Demonstrated Understanding Fall Prevention, taught by Javi Davis PT at 09/21/2024 8:38 AM.Learner: Patient Readiness: Acceptance Method: Demonstration, Explanation Response: Verbalizes Understanding, Demonstrated Understanding Home Exercise Program, taught by Javi Davis PT at 09/21/2024 8:38 AM. Learner: Patient Readiness: Acceptance Method: Demonstration, Explanation Response: Verbalizes Understanding, Demonstrated Understanding Physical Therapy Plan of Care, taught by Javi Davis PT at 09/21/2024 8:38 AM. Learner: Patient Readiness: Acceptance Method: Demonstration, Explanation Response: Verbalizes Understanding, Demonstrated Understanding Precautions, taught by Javi Davis PT at 09/21/2024 8:38 AM.Learner: Patient Readiness: Acceptance Method: Demonstration, Explanation Response: Verbalizes Understanding, Demonstrated Understanding Mobility, taught by Javi Davis PT at 09/21/2024 8:38 AM.Learner: Patient Readiness: Acceptance Method: Demonstration, Explanation Response: Verbalizes Understanding, Demonstrated Understanding Education CommentsNo comments found. Goals:Encounter Goals Encounter Goals (Active) Patient will progress to ambulate on even surfaces using LRAD/No device withMod I for >500 feet and with good balance Start: 09/21/24 Expected End: 10/24/24 Patient will progress ascending and descending 17 steps with B/L railings in appropriate manner with Mod I in order to improve access to home. Start: 09/21/24 Expected End: 10/24/24 Within 4 weeks of starting therapy, the patient and/or family/caregiver will demonstrate independence and be compliant in a written HEP in order to maximize gains made during therapy. Start: 09/21/24 Expected End: 10/24/24 Improve LE Muscle strength to 5/5 in order to facilitate improved functional mobility and ambulation. Start: 09/21/24 Expected End: 10/24/24 Patient will participate in dynamic standing balance activities with Mod I for 10 minutes in order to decrease LOB and facilitate safe functional mobility. Start: 09/21/24 Expected End: 10/24/24 Assessment & Plan Assessment:Assessment Results: Decreased strength, Decreased endurance, Impaired balance, Decreased mobility Prognosis: Excellent Evaluation/Treatment Tolerance: Patient tolerated treatment well Medical Staff Made Aware: Yes Strengths: Ability to acquire knowledge, Attitude of self, Coping skills, Insight into deficits, Support of extended family/friends Plan:Treatment Plan/Goals Established with Patient/Caregiver: Yes Treatment/Interventions: Functional activities, Gait training, Neuromuscular re-education, Patient education, Therapeutic exercises, Stair training PT Plan: Skilled PT PT Frequency: 5 times per week for 60 days PT Discharge Recommendations: Home health PT Equipment Recommended: (To be determined) Javi Davis PT,DPT * Kim Early OT - 09/21/2024 12:02 PM CDT Occupational Therapy Occupational Therapy Evaluation and Treatment Patient Name: Deepthi Moore Today's Date: 09/21/2024 General Session Information: General Family/Caregiver Present: No Subjective Current Problem: Pt has sternal precautions. Copied from medical record: HISTORY OF PRESENTING ILLNESS AND HOSPITAL COURSE: Please see the initial H and P dictated on admission. The patient is a 68-year-old female with multivessel coronary artery disease, status post recent CABG on August 26, with underlying diabetes mellitus type 2, hypertension, peripheral vascular disease, who was sent to the emergency room for evaluation of fever, shortness of breath. The patient apparently has been intolerant to Invokana in the past and thinks her symptoms started after Farxiga was initiated. The patient was put on some oral antibiotic at the nursing care facility. However, continued to have worsening symptoms and was sent to [facility] Emergency Room. The patient was noted to have sepsis secondary to UTI, had blood cultures positive for E coli and was noted to have E coli septicemia. The patient was put on ceftriaxone and was later added on doxycycline for concerns of possible atelectasis/pneumonia. Was also seen by Cardiology for concerns of acute on chronic systolic congestive heart failure with mild troponin leak, which was thought to be secondary to demand ischemia from underlying sepsis. Was seen by CV Surgery as well, and no further workup was recommended. The patient was initially put on diuretics and gradually transitioned to oral Lasix along with the rest of other chronic maintenance medications. Farxiga was held and patient was resumed back on aspirin, Plavix, Lasix, along with statins. The patient initially had volume overload, which improved. The patient was noted to have ejection fraction 40% to 45% with grade 2 diastolic dysfunction. Insulin dosage was adjusted for optimal blood sugar control. The patient was on ceftriaxone and doxycycline and will complete 2-week total antibiotic treatment course with levofloxacin as per ID recommendations. The patient was seen and evaluated on the day of discharge and was felt to be clinically and hemodynamically stable for discharge home. Objective Pain: Pain Assessment Pain Assessment: 0-10 (09/21/20241099) Pain Score: 7 (09/21/20241099) Pain Location: Other (Comment) (R inner thigh) (09/21/20241099) Pain Orientation: Right (09/21/20241099) Pain Descriptors: Aching (09/21/20241099) Pain Frequency: Intermittent (09/21/20241099) Precautions: UE Weight Bearing Status: FWB LE Weight Bearing Status: FWB Medical Precautions: [place] Post-Surgical Precautions: Sternal Precautions Home Living: Home Living Type of Home: [facility]ment [facility]) Lives With: Alone Home Layout: Two level Entrance Stairs-Number of Steps: 17 Bathroom Shower/Tub: Tub/shower unit Bathroom Toilet: Standard Prior Level of Function: Level of [place]: Independent with ADLs and functional transfers, Independent with homemaking with ambulation Receives Help From: Neighbor, Family ADL Assistance: Independent Homemaking Assistance: Independent Vocational: Retired Leisure: reading; gardening; writing IADL History: Homemaking Responsibilities: Yes Meal Prep Responsibility: Primary Self-Care: ADL Eating Assistance: Independent Grooming Assistance: Independent Bathing Assistance: Supervision/touching assistance UE Dressing Assistance: Supervision/touching assistance LE Dressing Assistance: Supervision/touching assistance Toileting Assistance: Supervision/touching assistance Self-Care CARE Scores: Eating: Assistance Needed: Independent CARE Score - Eatin Oral Hygiene: Assistance Needed: Independent CARE Score - Oral Hygiene: 6 Toileting Hygiene: Assistance Needed: Supervision CARE Score - Toileting Hygiene: 4 Shower/Bathe Self: Assistance Needed: Supervision CARE Score - Shower/Bathe Self: 4 Upper Body Dressing: Assistance Needed: Supervision CARE Score - Upper Body Dressin Lower Body Dressing: Assistance Needed: Supervision CARE Score - Lower Body Dressin Putting On/Taking Off Footwear:: Assistance Needed: Supervision CARE Score - Putting On/Taking Off Footwear: 4 Transfers: sba Extremity Assessments: Right Upper Extremity: RUE Assessment RUE Assessment: Within Functional Limits RUE Strength RUE Overall Strength: (NT due to sternal precautions) Left Upper Extremity: LUE Assessment LUE Assessment: Within Functional Limits LUE Strength LUE Overall Strength: Other (Comment) (sternal precautions) General Assessments: Vision Basic: Cognition: Overall Cognitive Status: Within Functional Limits Behavior/Cognition: Alert, Pleasant mood, Cooperative Orientation Level: Oriented X4 Coordination: Movements Are Fluid and Coordinated: Yes Hand Function: Hand Function Gross Grasp: Functional Coordination: Functional Activity Tolerance: good Patient Education: Education Documentation No documentation found. Education Comments No comments found. Goals: Encounter Goals Encounter Goals (Active) Patient will perform bathing with Independent assist to improve independence with ADLs. Start: 09/21/24 Expected End: 10/12/24 Patient will perform toileting with Independent assist to improve independence with ADLs. Start: 09/21/24 Expected End: 10/12/24 Patient will improve Time Up and Go Test to 15 seconds in order to increase safety with mobility during ADLs. Start: 09/21/24 Expected End: 10/12/24 Patient will improve 30 Second Sit to Stand Test by 10 stands in order to promote safe mobility with ADL tasks. Start: 09/21/24 Expected End: 10/12/24 Patient will increase dynamic standing balance to Mi during ADLs in order to reduce fall risk during self-care tasks. Start: 09/21/24 Expected End: 10/12/24 Assessment & PlanAssessment: OT Assessment Results: Impaired ADL status, Impaired upper extremity strength, Impaired endurance, Impaired functional mobility Prognosis: Good Barriers to Discharge: Home accessibility Strengths: Coping skills, Capable of completing ADLs semi/independent, Premorbid level of function, Attitude of self Plan:Treatment Interventions: ADL retraining, Endurance training, Functional transfer training OT Plan: Skilled OT OT Frequency: 5 times per week for 60 days OT Discharge Recommendations: Home Health OT [id number] 10:32:16Upcoming Encounters Scheduled Orders Name Type Priority Associated Diagnoses Order Schedule Wound Care Procedures Routine Daily until discontinued starting 09/28/2024 POCT Blood Glucose Point of Care Testing Routine 4 times daily (Lab) for 7 Days starting 09/29/2024 until 10/06/2024, 16 completed Scheduled Referrals Name Type Priority Associated Diagnoses Orde r Schedule Referral to Home Health (specify) Outpatient Referral Routine Other hyperlipidemia Glaucoma, unspecified glaucoma type, unspecified laterality Essential (primary) hypertension Type 2 diabetes mellitus with diabetic nephropathy, unspecified whether nursing home insulin use (HCC) Acute combined systolic (congestive) and diastolic (congestive) heart failure Cough, unspecified type SOB (shortness of breath) Pain Muscle spasm Dry eye Expected: 09/29/2024 (Approximate), Expires: 09/29/2025 Ambulatory referral to Home Health Outpatient Referral Routine 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 S/P CABG x 4 Physical deconditioning Expected: 09/29/2024 (Approximate), Expires: 09/29/2025 Health Maintenance Due Date Last Done Comments CT Colonography 1955 Colonoscopy 1955 Colorectal Cancer Screening 1955 FIT-DNA 1955 FIT 1955 FOBT 1955 Medicare Annual Wellness (AWV) 1955 Sigmoidoscopy 1955 Diabetes: Foot Exam 10/17/1965 Respiratory Syncytial Virus (RSV) or >=60 (1 - Risk 60-74 years 1-dose series) 2015 Pneumococcal Vaccine: 50+ Years (2 of 2 - PCV) 02/19/2018 02/19/2017 Diabetes: Retinopathy Screening 09/19/2023 09/18/2022, 03/17/2022, 11/07/2021 Zoster Vaccines (3 of 3) 04/12/2024 02/16/2024, 01/28 Diabetes: Hemoglobin A1C 11/22/2024 025, 06/24/2024, 01/07/2023, Additional history exists Lipid Panel 08/25/2025 08/25/2024, 05/30, 09/30/2022, Additional history exists Mammogram 05/10/2026 05/10/2024, 09/19/2021 DTaP/Tdap/Td Vaccines (2 - Td or Tdap) 02/19/2027 02/19/2017, 11/13/2008 Bone Density Scan Completed 04/18/2021, 04/18/2021 Influenza Vaccine Completed 09/12/2024, , 05/04/2022, Additional history exists HIB Vaccines Aged Out No longer eligi ble based on patient's age to complete this topic HPV Vaccines Aged Out No longer eligi ble based on patient's age to complete this topic Hepatitis A Vaccines Aged Out No long er eligible based on patient's age to complete this topic Hepatitis B Vaccines Aged Out No long er eligible based on patient's age to complete this topic IPV Vaccines Aged Out No longer eligi ble based on patient's age to complete this topic Meningococcal Vaccine Aged Out No berta juli eligible based on patient's age to complete this topic Rotavirus Vaccines Aged Out No longer eligible based on patient's age to complete this topic [id number] 10:32:16 [id number] 10:32:16 Diagnosis History of E. coli septicemi a - Primary Other hyperlipidemia Glaucoma, unspecified glauco ma type, unspecified laterality Essential (primary) hypertension Unspecified essential hypertension Type 2 diabetes mellitus wit h diabetic nephropathy, unspecified whether joint terminal attack controller insulin use ([facility]) Acute combined systolic (con gestive) and diastolic (congestive) heart failure Cough, unspecified type SOB (shortness of breath) Shortness of breath Urinary tract infection asso ciated with catheterization of urinary tract, unspecified indwelling urinary catheter type, initial encounter ([facility]) Pain Generalized pain Deep vein thrombosis (DVT) o f distal vein of lower extremity, unspecified chronicity, unspecified laterality ([facility]) ([facility]) Constipation, unspecified co nstipation type Muscle spasm Spasm of muscle Dry eye 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 S/P CABG x 4 Postsurgical aortocoronary bypass status Physical deconditioning Muscular wasting and disuse atrophy, not elsewhere classified DM (diabetes mellitus) ([facility]) Type II or unspecified type diabetes mellitus without mention of complication, not stated as uncontrolled Essential (primary) hypertension Unspecified essential hypertension SOB (shortness of breath) Shortness of breath UTI (urinary tract infection ) due to urinary indwelling catheter ([facility]) ([facility]) Other hyperlipidemia Acute combined systolic (con gestive) and diastolic (congestive) heart failure Cough Pain Generalized pain Muscle spasm Spasm of muscle DVT (deep venous thrombosis) ([facility]) ([facility]) Acute venous embolism and thrombosis of unspecified deep vessels of lower extremity Septicemia ([facility]) E coli bacteremia Complicated urinary tract infection Unspecified pyelonephritis 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 S/P CABG x 4 Postsurgical aortocoronary bypass status Hyperlipidemia Other and unspecified hyperlipidemia Type 2 diabetes mellitus wit h hyperglycemia, with long-term current use of insulin ([facility]) Normocytic anemia Unspecified anemia Open-angle glaucoma Unspecified open-angle glaucoma Dry eye Physical deconditioning Muscular wasting and disuse atrophy, not elsewhere classified [id number] 10:32:16 [id number] 09:31:17 Nursing Note Nursing Daily Note Patient was received this morning with even and unlabored respiration. All medications administered with no adverse reactions noted. Discharge Teachings done with Spouse in attendance. Patient and Spouse Verbalized Understanding. Patient and Spouse left the facility with all her belongings. Nursing Assessment Neurological Neurological Neuro (WDL) : Within Defined Limits Orientation Level: Oriented X4 Cognition: Coherent Speech: Clear Swallow: Able to swallow solids and liquids without difficulty [place] Coma Scale Best Eye Response: Spontaneous Best Verbal Response: Oriented Best Motor Response: Follows commands [place] Coma Scale Score: 15 HEENT Head, Ears, Eyes, Nose, and Throat (WDL): Within Defined Limits Psychosocial Patient Behaviors/Mood: (Pleasant and cooperative) Harmful Behavior: 1 Did the resident's behaviors or moods prevent you from providing any necessary care?: Provided all necessary care Wandering - Presence and Frequency: Resident has NOT wandered Needs Expressed: Physical Ability to Express Feelings: Able to express Ability to Express Needs: Able to express Ability to Express Thoughts: Able to express Ability to Understand Others: Understands Assistive Devices Respiratory Respiratory (WDL): Within Defined Limits Respiratory Pattern: Other (Comment) Respiratory Depth/Rhythm: Regular Respiratory Effort: Unlabored Respiratory Interventions Cardiac Cardiac (WDL): Exceptions to WDL Cardiac Regularity: Regular Vascular/Neurovascular Peripheral Vascular Peripheral Vascular (WDL): Exceptions to WDL Integumentary Integumentary (WDL): Exceptions to WDL Skin Condition: Pale Skin Temperature: Warm Skin Integrity: Intact Ranjit Scale Sensory Perceptions: No impairment Moisture: Occasionally moist Activity: Chairfast Mobility: Slightly limited Nutrition: Adequate Friction and Shear: Potential problem Ranjit Scale Score: 17 Musculoskeletal Musculoskeletal Musculoskeletal (WDL): Within Defined Limits Upper Extremity (Shoulder, Elbow, Wrist, Hand): No impairment Lower Extremity (Hip, Knee, Ankle, Foot): No impairment Gastrointestinal Gastrointestinal Gastrointestinal (WDL): Within Defined Limits Abdomen Inspection: Flat, Soft Genitourinary Genitourinary (WDL): Within Defined Limits Urinary Incontinence: No Urine Color: Yellow/straw Urine Appearance: Clear Urine Odor: Unable to assess Suprapubic Tenderness: No Genitourinary Symptoms: None Female Genitalia: Intact Provider Notification Daily Cares/Safety Precautions Carmelita Rojas Fall Risk Activity Highest Level of Mobility Performed (-HLM): Transferred to chair/commode Nutrition Hygiene Resident Preferences Activities of Daily Living Education Documentation No documentation found. Education Comments No comments found. Kei Chau RN [facility] [id number] 03:40:42 Nursing Note Nursing Daily Note No distress noted Nursing Assessment Neurological Neurological Neuro (WDL) : Within Defined Limits Orientation Level: Oriented X4 Cognition: Coherent Speech: Clear Swallow: Able to swallow solids and liquids without difficulty [place] Coma Scale Best Eye Response: Spontaneous Best Verbal Response: Oriented Best Motor Response: Follows commands [place] Coma Scale Score: 15 HEENT Head, Ears, Eyes, Nose, and Throat (WDL): Within Defined Limits Psychosocial Patient Behaviors/Mood: Other (Comment) Did the resident's behaviors or moods prevent you from providing any necessary care?: Provided all necessary care Wandering - Presence and Frequency: Resident has NOT wandered Needs Expressed: Physical Assistive Devices Respiratory Respiratory (WDL): Within Defined Limits Respiratory Pattern: Other (Comment) Respiratory Depth/Rhythm: Regular Respiratory Interventions Cardiac Cardiac (WDL): Exceptions to WDL Cardiac Regularity: Regular Pacemaker: Yes Vascular/Neurovascular Peripheral Vascular Peripheral Vascular (WDL): Exceptions to WDL Peripheral Vascular Detailed Assessments: Right lower extremity Integumentary Integumentary (WDL): Exceptions to WDL Skin Condition: Pale Skin Temperature: Warm Ranjit Scale Sensory Perceptions: No impairment Moisture: Occasionally moist Activity: Chairfast Mobility: Slightly limited Nutrition: Adequate Friction and Shear: Potential problem Ranjit Scale Score: 17 Wound 08/26/24 Surgical Proximal;Right Pretibial (Active) Dressing Status Clean;Dry;Intact 10/02/241999 Site Assessment Clean 10/02/241999 Cristina-Wound Assessment Clean 10/02/241999 Number of days: 38 Wound 08/26/24 Surgical Sternum (Active) Dressing Status Clean;Dry;Intact 10/02/241999 Site Assessment Clean 10/02/241999 Cristina-Wound Assessment Clean 10/02/241999 Number of days: 38 Wound 08/26/24 Surgical Right Pretibial (Active) Dressing Status Clean;Dry;Intact 10/02/241999 Site Assessment Clean 10/02/241999 Cristina-Wound Assessment Clean 10/02/241999 Number of days: 38 Wound 08/26/24 Surgical Anterior;Proximal;Right Thigh (Active) Dressing Status Clean;Dry;Intact 10/02/241999 Site Assessment Clean 10/02/241999 Cristina-Wound Assessment Clean 10/02/241999 Number of days: 38 Wound Medial Abdomen (Active) Dressing Status Clean;Dry;Intact 10/02/241999 Site Assessment Clean 10/02/241999 Cristina-Wound Assessment Clean 10/02/241999 Number of days: Musculoskeletal Musculoskeletal Musculoskeletal (WDL): Within Defined Limits Upper Extremity (Shoulder, Elbow, Wrist, Hand): No impairment Gastrointestinal Gastrointestinal Gastrointestinal (WDL): Within Defined Limits Abdomen Inspection: Flat, Soft Genitourinary Genitourinary (WDL): Within Defined Limits Urinary Incontinence: No Toileting Program Urinary Toileting Program Being Used: Scheduled toileting Bowel Toileting Program Being Used: Yes Provider Notification Daily Cares/Safety Precautions Carmelita Rojas Fall Risk Activity Nutrition Hygiene Resident Preferences Activities of Daily Living Education Documentation No documentation found. Education Comments No comments found. Karis Gonzalez RN [facility]2025-04-06 13:43:10 Nursing Note Nursing Daily Note No distress noted with Patient's spouse and son was with patient for Lunch. Call Light is within reach. Will continue care as planned Nursing Assessment Neurological Neurological Neuro (WDL) : Within Defined Limits Orientation Level: Oriented X4 [place] Coma Scale Best Eye Response: Spontaneous Best Verbal Response: Oriented Best Motor Response: Follows commands [place] Coma Scale Score: 15 HEENT Head, Ears, Eyes, Nose, and Throat (WDL): Within Defined Limits Psychosocial Patient Behaviors/Mood: (No Behavior Issue) Harmful Behavior: 1 Did the resident's behaviors or moods prevent you from providing any necessary care?: Provided all necessary care Wandering - Presence and Frequency: Resident has NOT wandered Ability to Express Feelings: Able to express Ability to Express Needs: Able to express Ability to Express Thoughts: Able to express Ability to Understand Others: Understands Assistive Devices Respiratory Respiratory (WDL): Exceptions to WDL Respiratory Pattern: Other (Comment) Respiratory Depth/Rhythm: Regular Respiratory Effort: Unlabored Respiratory Interventions Cardiac Cardiac (WDL): Exceptions to WDL Cardiac Regularity: Regular Vascular/Neurovascular Integumentary Integumentary (WDL): Exceptions to WDL Skin Condition: Dry, [place] Skin Temperature: Warm Skin Integrity: Intact Ranjit Scale Sensory Perceptions: No impairment Moisture: Occasionally moist Activity: Chairfast Mobility: Slightly limited Nutrition: Adequate Friction and Shear: Potential problem Ranjit Scale Score: 17 Wound 08/26/24 Surgical Proximal;Right Pretibial (Active) Dressing Status Clean;Dry;Intact 10/02/24 0800 Site Assessment Intact;Clean 10/02/24 0800 Cristina-Wound Assessment Dry;Clean;Intact 10/02/24 0800 Number of days: 37 Wound 08/26/24 Surgical Sternum (Active) Dressing Status Clean;Dry;Intact 10/02/24 0800 Site Assessment Clean;Intact 10/02/24 0800 Cristina-Wound Assessment Dry;Clean;Intact 10/02/24 0800 Number of days: 37 Wound 08/26/24 Surgical Right Pretibial (Active) Dressing Status Clean;Dry;Intact 10/02/24 0800 Site Assessment Clean;Intact 10/02/24 0800 Cristina-Wound Assessment Dry;Clean;Intact 10/02/24 0800 Number of days: 37 Wound 08/26/24 Surgical Anterior;Proximal;Right Thigh (Active) Dressing Status Clean;Dry;Intact 10/02/24 0800 Site Assessment Dry;Intact 10/02/24 0800 Cristina-Wound Assessment Dry;Clean;Intact 10/02/24 0800 Number of days: 37 Wound Medial Abdomen (Active) Dressing Status Clean;Dry;Intact 10/02/24 0800 Site Assessment Clean;Intact 10/02/24 0800 Cristina-Wound Assessment Dry;Clean;Intact 10/02/24 0800 Number of days: Musculoskeletal Gastrointestinal Gastrointestinal Gastrointestinal (WDL): Within Defined Limits Abdomen Inspection: Soft Genitourinary Genitourinary (WDL): Within Defined Limits Urinary Incontinence: No Urine Color: Yellow/straw Urine Appearance: Clear Urine Odor: Unable to assess Suprapubic Tenderness: No Provider Notification Daily Cares/Safety Precautions Carmelita Rojas Fall Risk Activity Highest Level of Mobility Performed (-[facility]): Transferred to chair/commode Nutrition Hygiene Resident Preferences Activities of Daily Living Education Documentation No documentation found. Education Comments No comments found. Kei Chau RN [facility]2025-04-06 06:58:59 Nursing Note Nursing Daily Note Nursing Assessment Neurological Neurological Neuro (WDL) : Within Defined Limits Orientation Level: Oriented X4 Cognition: Coherent Speech: Clear Swallow: Able to swallow solids and liquids without difficulty [place] Coma Scale Best Eye Response: Spontaneous Best Verbal Response: Oriented Best Motor Response: Follows commands [place] Coma Scale Score: 15 HEENT Head, Ears, Eyes, Nose, and Throat (WDL): Within Defined Limits Psychosocial Patient Behaviors/Mood: Other (Comment) Did the resident's behaviors or moods prevent you from providing any necessary care?: Provided all necessary care Wandering - Presence and Frequency: Resident has NOT wandered Needs Expressed: Physical Assistive Devices Respiratory Respiratory (WDL): Exceptions to WDL Respiratory Interventions Cardiac Cardiac (WDL): Exceptions to WDL Vascular/Neurovascular Peripheral Vascular Peripheral Vascular (WDL): Exceptions to WDL Integumentary Integumentary (WDL): Exceptions to WDL Ranjit Scale Sensory Perceptions: No impairment Moisture: Occasionally moist Activity: Chairfast Mobility: Slightly limited Nutrition: Adequate Friction and Shear: Potential problem Ranjit Scale Score: 17 Wound 08/26/24 Surgical Proximal;Right Pretibial (Active) Dressing Status Clean;Dry;Intact 10/01/241999 Site Assessment Clean;Dry;Intact 10/01/241999 Cristina-Wound Assessment Clean;Dry;Intact 10/01/241999 Number of days: 37 Wound 08/26/24 Surgical Sternum (Active) Dressing Status Clean;Dry;Intact 10/01/241999 Site Assessment Clean;Dry;Intact 10/01/241999 Cristina-Wound Assessment Dry;Intact;Clean 10/01/241999 Number of days: 37 Wound 08/26/24 Surgical Right Pretibial (Active) Dressing Status Clean;Dry;Intact 10/01/241999 Site Assessment Dry;Clean;Intact 10/01/241999 Cristina-Wound Assessment Dry;Clean;Intact 10/01/241999 Number of days: 37 Wound 08/26/24 Surgical Anterior;Proximal;Right Thigh (Active) Dressing Status Clean;Dry;Intact 10/01/241999 Site Assessment Clean;Dry;Intact 10/01/241999 Cristina-Wound Assessment Clean;Dry;Intact 10/01/241999 Number of days: 37 Wound Medial Abdomen (Active) Dressing Status Clean;Dry;Intact 10/01/241999 Site Assessment Clean;Dry;Intact 10/01/241999 Cristina-Wound Assessment Clean;Dry;Intact 10/01/241999 Number of days: Musculoskeletal Musculoskeletal Musculoskeletal (WDL): Within Defined Limits Gastrointestinal Gastrointestinal Gastrointestinal (WDL): Within Defined Limits Genitourinary Genitourinary (WDL): Within Defined Limits Urinary Incontinence: No Toileting Program Urinary Toileting Program Being Used: Scheduled toileting Bowel Toileting Program Being Used: No Provider Notification Daily Cares/Safety Precautions Carmelita Rojas Fall Risk Activity Nutrition Hygiene Resident Preferences Activities of Daily Living Education Documentation No documentation found. Education Comments No comments found. Aileen Atwood RN [facility]2025-04-05 15:49:39 Nursing Note Nursing Daily Note Nursing Assessment Neurological Neurological Neuro (WDL) : Within Defined Limits Orientation Level: Oriented X4 Cognition: Coherent Speech: Clear Swallow: Able to swallow solids and liquids without difficulty [place] Coma Scale Best Eye Response: Spontaneous Best Verbal Response: Oriented Best Motor Response: Follows commands [place] Coma Scale Score: 15 HEENT Head, Ears, Eyes, Nose, and Throat (WDL): Within Defined Limits Psychosocial Patient Behaviors/Mood: Other (Comment) Did the resident's behaviors or moods prevent you from providing any necessary care?: Provided all necessary care Wandering - Presence and Frequency: Resident has NOT wandered Needs Expressed: Physical Assistive Devices Respiratory Respiratory (WDL): Exceptions to WDL Respiratory Interventions Cardiac Cardiac (WDL): Exceptions to WDL Vascular/Neurovascular Peripheral Vascular Peripheral Vascular (WDL): Exceptions to WDL Integumentary Integumentary (WDL): Exceptions to WDL Ranjit Scale Sensory Perceptions: No impairment Moisture: Occasionally moist Activity: Chairfast Mobility: Slightly limited Nutrition: Adequate Friction and Shear: Potential problem Arnjit Scale Score: 17 Wound 08/26/24 Surgical Proximal;Right Pretibial (Active) Dressing Status Clean;Dry;Intact 10/01/24725 Site Assessment Clean;Dry;Intact 10/01/24725 Cristina-Wound Assessment Clean;Dry;Intact 10/01/24725 Number of days: 36 Wound 08/26/24 Surgical Sternum (Active) Dressing Status Clean;Dry;Intact 10/01/24725 Site Assessment Clean;Dry;Intact 10/01/24725 Cristina-Wound Assessment Clean;Dry;Intact 10/01/24725 Number of days: 36 Wound 08/26/24 Surgical Right Pretibial (Active) Dressing Status Clean;Dry;Intact 10/01/24725 Site Assessment Clean;Dry;Intact 10/01/24725 Cristina-Wound Assessment Clean;Dry;Intact 10/01/24725 Number of days: 36 Wound 08/26/24 Surgical Anterior;Proximal;Right Thigh (Active) Dressing Status Clean;Dry;Intact 10/01/24725 Site Assessment Clean;Dry;Intact 10/01/24725 Cristina-Wound Assessment Clean;Dry;Intact 10/01/24725 Number of days: 36 Wound Medial Abdomen (Active) Dressing Status Clean;Dry;Intact 10/01/24725 Site Assessment Clean;Dry;Intact 10/01/24725 Cristina-Wound Assessment Clean;Dry;Intact 10/01/24725 Number of days: Musculoskeletal Musculoskeletal Musculoskeletal (WDL): Within Defined Limits Gastrointestinal Gastrointestinal Gastrointestinal (WDL): Within Defined Limits Genitourinary Genitourinary (WDL): Within Defined Limits Urinary Incontinence: No Suprapubic Tenderness: No Genitourinary Symptoms: None Female Genitalia: Intact Toileting Program Urinary Toileting Program Being Used: Scheduled toileting Bowel Toileting Program Being Used: No Provider Notification Daily Cares/Safety Precautions Carmelita Rojas Fall Risk Activity Highest Level of Mobility Performed (-HLM): Lying in bed Nutrition Hygiene Resident Preferences Activities of Daily Living Education Documentation No documentation found. Education Comments No comments found. Charo Noriega LVN [facility]2025-04-05 14:12:09 Identify possible barriers to meeting goals/advancing plan of care: Summary: [facility]2025-04-05 03:20:56 Nursing Note Nursing Daily Note No distress noted Nursing Assessment Neurological Neurological Neuro (WDL) : Within Defined Limits Orientation Level: Oriented X4 Cognition: Coherent Speech: Clear Swallow: Able to swallow solids and liquids without difficulty [place] Coma Scale Best Eye Response: Spontaneous Best Verbal Response: Oriented Best Motor Response: Follows commands [place] Coma Scale Score: 15 HEENT Head, Ears, Eyes, Nose, and Throat (WDL): Within Defined Limits Psychosocial Patient Behaviors/Mood: Other (Comment) Did the resident's behaviors or moods prevent you from providing any necessary care?: Provided all necessary care Wandering - Presence and Frequency: Resident has NOT wandered Needs Expressed: Physical Assistive Devices Respiratory Respiratory (WDL): Exceptions to WDL Respiratory Pattern: Other (Comment) Respiratory Depth/Rhythm: Regular Respiratory Effort: Unlabored Respiratory Effort Characteristics: Other (Comment) Dyspnea Occurrence: Other (Comment) Respiratory Interventions Cardiac Cardiac (WDL): Exceptions to WDL Cardiac Regularity: Regular Vascular/Neurovascular Peripheral Vascular Peripheral Vascular (WDL): Exceptions to WDL Integumentary Integumentary (WDL): Exceptions to WDL Skin Temperature: Warm Ranjit Scale Sensory Perceptions: No impairment Moisture: Occasionally moist Activity: Chairfast Mobility: Slightly limited Nutrition: Adequate Friction and Shear: Potential problem Ranjit Scale Score: 17 Wound 08/26/24 Surgical Proximal;Right Pretibial (Active) Dressing Status Other (Comment) 09/30/241999 Site Assessment Clean 09/30/241999 Cristina-Wound Assessment Clean 09/30/241999 Number of days: 36 Wound 08/26/24 Surgical Sternum (Active) Dressing Status Other (Comment) 09/30/241999 Site Assessment Clean 09/30/241999 Cristina-Wound Assessment Clean 09/30/241999 Number of days: 36 Wound 08/26/24 Surgical Right Pretibial (Active) Dressing Status Other (Comment) 09/30/241999 Site Assessment Clean 09/30/241999 Cristina-Wound Assessment Clean 09/30/241999 Number of days: 36 Wound 08/26/24 Surgical Anterior;Proximal;Right Thigh (Active) Dressing Status Clean;Dry;Intact 09/30/241999 Site Assessment Clean 09/30/241999 Cristina-Wound Assessment Clean 09/30/241999 Number of days: 36 Wound Medial Abdomen (Active) Dressing Status Other (Comment) 09/30/241999 Site Assessment Clean 09/30/241999 Cristina-Wound Assessment Clean 09/30/241999 Number of days: Musculoskeletal Musculoskeletal Musculoskeletal (WDL): Within Defined Limits Upper Extremity (Shoulder, Elbow, Wrist, Hand): No impairment Lower Extremity (Hip, Knee, Ankle, Foot): No impairment Gastrointestinal Gastrointestinal Gastrointestinal (WDL): Within Defined Limits Abdomen Inspection: Soft Genitourinary Genitourinary (WDL): Within Defined Limits Urinary Incontinence: No Suprapubic Tenderness: No Genitourinary Symptoms: None Female Genitalia: Intact Toileting Program Urinary Toileting Program Being Used: Scheduled toileting Bowel Toileting Program Being Used: No Provider Notification Daily Cares/Safety Precautions Carmelita Rojas Fall Risk Activity Nutrition Hygiene Resident Preferences Activities of Daily Living Education Documentation No documentation found. Education Comments No comments found. Karis Gonzalez RN [facility]2025-04-04 14:31:55 Nursing Note Nursing Daily Note Respiration even and unlabored. Call light placed within reach. Patient was up during this shift. No complains voiced at this time. Participated in therapy as scheduled. No distress noted at this time. Plan of care continues. Nursing Assessment Neurological Neurological Neuro (WDL) : Within Defined Limits Orientation Level: Oriented X4 Cognition: Coherent Speech: Clear Swallow: Able to swallow solids and liquids without difficulty [place] Coma Scale Best Eye Response: Spontaneous Best Verbal Response: Oriented Best Motor Response: Follows commands Esc[place] Coma Scale Score: 15 HEENT Head, Ears, Eyes, Nose, and Throat (WDL): Within Defined Limits Psychosocial Patient Behaviors/Mood: Other (Comment) Did the resident's behaviors or moods prevent you from providing any necessary care?: Provided all necessary care Wandering - Presence and Frequency: Resident has NOT wandered Needs Expressed: Physical Assistive Devices Respiratory Respiratory (WDL): Exceptions to WDL Respiratory Interventions Cardiac Cardiac (WDL): Exceptions to WDL Vascular/Neurovascular Peripheral Vascular Peripheral Vascular (WDL): Exceptions to WDL Integumentary Integumentary (WDL): Exceptions to WDL Ranjit Scale Sensory Perceptions: No impairment Moisture: Occasionally moist Activity: Chairfast Mobility: Slightly limited Nutrition: Adequate Friction and Shear: Potential problem Ranjit Scale Score: 17 Wound 08/26/24 Surgical Proximal;Right Pretibial (Active) Dressing Status Clean;Dry;Intact 09/30/24 1022 Drainage Amount None 09/30/24 1022 Site Assessment Other (Comment) (proximal Right pretibial) 09/30/24 1022 Treatments Cleansed;Other (Comment) (monitor) 09/30/24 1022 Dressing Other (Comment) (monitor site for s/s of infection) 09/30/24 1022 Number of days: 35 Wound 08/26/24 Surgical Sternum (Active) Dressing Status Clean;Dry;Intact 09/30/24 1026 Drainage Amount None 09/30/24 1026 Site Assessment Other (Comment) (Sternum) 09/30/24 1026 Treatments Cleansed 09/30/24 1026 Dressing Other (Comment) (monitor site for s/s of infection) 09/30/24 1026 Number of days: 35 Wound 08/26/24 Surgical Right Pretibial (Active) Dressing Status Clean;Dry;Intact 09/30/24 1021 Drainage Amount None 09/30/24 1021 Site Assessment Other (Comment) (Right pretibial) 09/30/24 1021 Treatments Cleansed 09/30/24 1021 Dressing Other (Comment) (monitor) 09/30/24 1021 Number of days: 35 Wound 08/26/24 Surgical Anterior;Proximal;Right Thigh (Active) Dressing Status Clean;Dry;Intact 09/30/24 1024 Drainage Amount None 09/30/24 1024 Site Assessment Other (Comment) (Right Groin) 09/30/24 1024 Treatments Cleansed 09/30/24 1024 Dressing Other (Comment) (monitor for s/s of infection) 09/30/24 1024 Number of days: 35 Wound Medial Abdomen (Active) Dressing Status Clean;Dry;Intact 09/30/24 1024 Drainage Amount None 09/30/24 1024 Site Assessment Other (Comment) (ABD) 09/30/24 1024 Treatments Cleansed 09/30/24 1024 Dressing Other (Comment) (Monitor for s/s of infection) 09/30/24 1024 Number of days: Musculoskeletal Musculoskeletal Musculoskeletal (WDL): Within Defined Limits Gastrointestinal Gastrointestinal Gastrointestinal (WDL): Within Defined Limits Genitourinary Genitourinary (WDL): Within Defined Limits Urinary Incontinence: Yes Urine Color: Yellow/straw Urine Appearance: Clear Urine Odor: Unable to assess Suprapubic Tenderness: No Genitourinary Symptoms: None Female Genitalia: Intact Toileting Program Urinary Toileting Program Being Used: None Bowel Toileting Program Being Used: No Provider Notification Daily Cares/Safety Precautions Carmelita Rojas Fall Risk Activity Highest Level of Mobility Performed (JH-HLM): Transferred to chair/commode Nutrition Hygiene Resident Preferences Activities of Daily Living Education Documentation No documentation found. Education Comments No comments found. Dee Michele RN [facility]2025-04-04 05:33:42 Nursing Note Nursing Daily Note Nursing Assessment Neurological Neurological Neuro (WDL) : Within Defined Limits Orientation Level: Oriented X4 Cognition: Coherent Speech: Clear Swallow: Able to swallow solids and liquids without difficulty [place] Coma Scale Best Eye Response: Spontaneous Best Verbal Response: Oriented Best Motor Response: Follows commands [place] Coma Scale Score: 15 HEENT Head, Ears, Eyes, Nose, and Throat (WDL): Within Defined Limits Psychosocial Patient Behaviors/Mood: Other (Comment) Did the resident's behaviors or moods prevent you from providing any necessary care?: Provided all necessary care Wandering - Presence and Frequency: Resident has NOT wandered Needs Expressed: Physical Assistive Devices Respiratory Respiratory (WDL): Exceptions to WDL Respiratory Pattern: Other (Comment) Dyspnea Occurrence: Other (Comment) Respiratory Interventions Cardiac Cardiac (WDL): Exceptions to WDL Vascular/Neurovascular Peripheral Vascular Peripheral Vascular (WDL): Exceptions to WDL Integumentary Integumentary (WDL): Exceptions to WDL Skin Temperature: Warm Ranjit Scale Sensory Perceptions: No impairment Moisture: Occasionally moist Activity: Chairfast Mobility: Slightly limited Nutrition: Adequate Friction and Shear: Potential problem Ranjit Scale Score: 17 Wound 08/26/24 Surgical Proximal;Right Pretibial (Active) Dressing Status Clean 09/29/241999 Site Assessment Clean 09/29/241999 Cristina-Wound Assessment Clean 09/29/241999 Number of days: 35 Wound 08/26/24 Surgical Sternum (Active) Dressing Status Clean 09/29/241999 Site Assessment Clean 09/29/241999 Cristina-Wound Assessment Clean 09/29/241999 Number of days: 35 Wound 08/26/24 Surgical Right Pretibial (Active) Dressing Status Clean 09/29/241999 Site Assessment Clean 09/29/241999 Cristina-Wound Assessment Clean 09/29/241999 Number of days: 35 Wound 08/26/24 Surgical Anterior;Proximal;Right Thigh (Active) Dressing Status Clean 09/29/241999 Site Assessment Clean 09/29/241999 Cristina-Wound Assessment Clean 09/29/241999 Number of days: 35 Wound Medial Abdomen (Active) Dressing Status Clean 09/29/241999 Site Assessment Clean 09/29/241999 Cristina-Wound Assessment Clean 09/29/241999 Number of days: Musculoskeletal Musculoskeletal Musculoskeletal (WDL): Within Defined Limits Upper Extremity (Shoulder, Elbow, Wrist, Hand): No impairment Lower Extremity (Hip, Knee, Ankle, Foot): No impairment Gastrointestinal Gastrointestinal Gastrointestinal (WDL): Within Defined Limits Genitourinary Genitourinary (WDL): Within Defined Limits Urinary Incontinence: No Urine Color: Unable to assess Urine Appearance: Unable to assess Urine Odor: Unable to assess Suprapubic Tenderness: No Genitourinary Symptoms: None Female Genitalia: Intact Toileting Program Urinary Toileting Program Being Used: None Bowel Toileting Program Being Used: No Provider Notification Daily Cares/Safety Precautions Carmelita Rojas Fall Risk Activity Nutrition Hygiene Resident Preferences Activities of Daily Living Education Documentation No documentation found. Education Comments No comments found. Jessika Pereyra RN [facility]2025-04-03 19:37:49 Nursing Note Patient went to her appointment during this shift to see the infection disease Doctor. She was accompanied by her spouse. New orders were received: Levofloxacin 500 mg X 3 DAYS Then stop. CBC to be done in am and send results to her office. Dr Vaughan was notified with new orders. [facility]2025-04-03 13:20:22 Nursing Note Nursing Daily Note Patient was up during this shift. Respiration even and unlabored. Call light placed within reach. No distress noted. Participated in therapy as scheduled. Patient was seen this morning by Dr Vaughan. New medication update done. Patient is aware of new regimen. Plan of care continues. Nursing Assessment Neurological Neurological Neuro (WDL) : Within Defined Limits Orientation Level: Oriented X4 Cognition: Coherent Speech: Clear Swallow: Able to swallow solids and liquids without difficulty [place] Coma Scale Best Eye Response: Spontaneous Best Verbal Response: Oriented Best Motor Response: Follows commands [place] Coma Scale Score: 15 HEENT Head, Ears, Eyes, Nose, and Throat (WDL): Within Defined Limits Psychosocial Patient Behaviors/Mood: Other (Comment) Did the resident's behaviors or moods prevent you from providing any necessary care?: Provided all necessary care Wandering - Presence and Frequency: Resident has NOT wandered Needs Expressed: Physical Assistive Devices Respiratory Respiratory (WDL): Exceptions to WDL Respiratory Interventions Cardiac Cardiac (WDL): Exceptions to WDL Vascular/Neurovascular Peripheral Vascular Peripheral Vascular (WDL): Exceptions to WDL Integumentary Integumentary (WDL): Exceptions to WDL Ranjit Scale Sensory Perceptions: No impairment Moisture: Occasionally moist Activity: Chairfast Mobility: Slightly limited Nutrition: Adequate Friction and Shear: Potential problem Ranjit Scale Score: 17 Wound 08/26/24 Surgical Proximal;Right Pretibial (Active) Dressing Status Clean;Dry;Intact 09/29/24 1105 Drainage Amount None 09/29/24 1105 Site Assessment Other (Comment) (Right pretibial) 09/29/24 1105 Treatments Cleansed 09/29/24 1105 Dressing Other (Comment) (LOTA) 09/29/24 1105 Number of days: 34 Wound 08/26/24 Surgical Sternum (Active) Dressing Status Clean;Dry;Intact 09/29/24 1104 Drainage Amount None 09/29/24 1104 Site Assessment Other (Comment) (sternum) 09/29/24 1104 Treatments Cleansed 09/29/24 1104 Dressing Other (Comment) (LOTA) 09/29/24 1104 Number of days: 34 Wound 08/26/24 Surgical Right Pretibial (Active) Dressing Status Clean;Dry;Intact 09/29/24 1106 Drainage Amount None 09/29/24 1106 Site Assessment Other (Comment) (Right pretibial) 09/29/24 1106 Treatments Cleansed 09/29/24 1106 Dressing Other (Comment) (LOTA) 09/29/24 1106 Number of days: 34 Wound Medial Abdomen (Active) Dressing Status Clean;Dry;Intact 09/29/24 1105 Drainage Amount None 09/29/24 1105 Site Assessment Other (Comment) (ABD) 09/29/24 1105 Treatments Cleansed 09/29/24 1105 Dressing Other (Comment) (LOTA) 09/29/24 1105 Number of days: Musculoskeletal Musculoskeletal Musculoskeletal (WDL): Within Defined Limits Gastrointestinal Gastrointestinal Gastrointestinal (WDL): Within Defined Limits Genitourinary Genitourinary (WDL): Within Defined Limits Urinary Incontinence: No Urine Color: Yellow/straw Urine Appearance: Clear Urine Odor: Unable to assess Suprapubic Tenderness: No Genitourinary Symptoms: None Female Genitalia: Intact Toileting Program Urinary Toileting Program Being Used: None Bowel Toileting Program Being Used: No Provider Notification Daily Cares/Safety Precautions Carmelita Rojas Fall Risk Activity Highest Level of Mobility Performed (-HLM): Lying in bed Nutrition Hygiene Resident Preferences Activities of Daily Living Education Documentation No documentation found. Education Comments No comments found. Dee Michele RN [facility]2025-04-03 03:00:00 Nursing Note Nursing Daily Note Nursing Assessment Neurological Neurological Neuro (WDL) : Within Defined Limits Orientation Level: Oriented X4 Cognition: Coherent Speech: Clear Swallow: Able to swallow solids and liquids without difficulty [place] Coma Scale Best Eye Response: Spontaneous Best Verbal Response: Oriented Best Motor Response: Follows commands [place] Coma Scale Score: 15 HEENT Head, Ears, Eyes, Nose, and Throat (WDL): Within Defined Limits Psychosocial Patient Behaviors/Mood: Other (Comment) Did the resident's behaviors or moods prevent you from providing any necessary care?: Provided all necessary care Wandering - Presence and Frequency: Resident has NOT wandered Needs Expressed: Physical Assistive Devices Respiratory Respiratory (WDL): Exceptions to WDL Respiratory Pattern: Other (Comment) Dyspnea Occurrence: Other (Comment) Respiratory Interventions Cardiac Cardiac (WDL): Exceptions to WDL Vascular/Neurovascular Peripheral Vascular Peripheral Vascular (WDL): Exceptions to WDL Integumentary Integumentary (WDL): Exceptions to WDL Skin Temperature: Warm Ranjit Scale Sensory Perceptions: No impairment Moisture: Occasionally moist Activity: Chairfast Mobility: Slightly limited Nutrition: Adequate Friction and Shear: Potential problem Ranjit Scale Score: 17 Wound 08/26/24 Surgical Proximal;Right Pretibial (Active) Dressing Status Clean 09/28/241999 Site Assessment Clean 09/28/241999 Cristina-Wound Assessment Clean 09/28/241999 Number of days: 34 Wound 08/26/24 Surgical Sternum (Active) Dressing Status Clean 09/28/241999 Site Assessment Clean 09/28/241999 Cristina-Wound Assessment Clean 09/28/241999 Number of days: 34 Wound 08/26/24 Surgical Right Pretibial (Active) Dressing Status Clean 09/28/241999 Site Assessment Clean 09/28/241999 Cristina-Wound Assessment Clean 09/28/241999 Number of days: 34 Wound 08/26/24 Surgical Anterior;Proximal;Right Thigh (Active) Dressing Status Clean 09/28/241999 Site Assessment Clean 09/28/241999 Cristina-Wound Assessment Clean 09/28/241999 Number of days: 34 Wound Medial Abdomen (Active) Dressing Status Clean 09/28/241999 Site Assessment Clean 09/28/241999 Cristina-Wound Assessment Clean 09/28/241999 Number of days: Musculoskeletal Musculoskeletal Musculoskeletal (WDL): Within Defined Limits Upper Extremity (Shoulder, Elbow, Wrist, Hand): No impairment Lower Extremity (Hip, Knee, Ankle, Foot): No impairment Gastrointestinal Gastrointestinal Gastrointestinal (WDL): Within Defined Limits Bowel Incontinence: No Genitourinary Genitourinary (WDL): Within Defined Limits Urinary Incontinence: No Urine Color: Yellow/straw Urine Appearance: Clear Urine Odor: Unable to assess Suprapubic Tenderness: No Genitourinary Symptoms: None Female Genitalia: Intact Toileting Program Urinary Toileting Program Being Used: None Bowel Toileting Program Being Used: No Provider Notification Daily Cares/Safety Precautions Carmelita Rojas Fall Risk Activity Nutrition Hygiene Resident Preferences Activities of Daily Living Education Documentation No documentation found. Education Comments No comments found. Jessika Pereyra RN [facility] Susan [id number] 19:31:49 Nursing Note Nursing Daily Note Patient is alert and oriented X 4, able to verbalized needs. Patient went for ortho appointment with order to remove all wound dressing and open to air. Also, came back from cardiology appointment with new order of metoprolol 25mg qhs. Patient is AC/HS with insulin glargine 40 units scheduled for the evening; administered. Resting in the room with call light within reach. Nursing Assessment Neurological Neurological Neuro (WDL) : Within Defined Limits Orientation Level: Oriented X4 Cognition: Coherent Speech: Clear Swallow: Able to swallow solids and liquids without difficulty [place] Coma Scale Best Eye Response: Spontaneous Best Verbal Response: Oriented Best Motor Response: Follows commands [place] Coma Scale Score: 15 HEENT Head, Ears, Eyes, Nose, and Throat (WDL): Within Defined Limits Psychosocial Patient Behaviors/Mood: Other (Comment) Did the resident's behaviors or moods prevent you from providing any necessary care?: Provided all necessary care Wandering - Presence and Frequency: Resident has NOT wandered Needs Expressed: Physical Assistive Devices Respiratory Respiratory (WDL): Exceptions to WDL Respiratory Interventions Cardiac Cardiac (WDL): Within Defined Limits Vascular/Neurovascular Peripheral Vascular Peripheral Vascular (WDL): Within Defined Limits Integumentary Integumentary (WDL): Within Defined Limits Ranjit Scale Sensory Perceptions: No impairment Moisture: Occasionally moist Activity: Chairfast Mobility: Slightly limited Nutrition: Adequate Friction and Shear: Potential problem Ranjit Scale Score: 17 Wound 08/26/24 Surgical Proximal;Right Pretibial (Active) Dressing Status Clean;Dry;Intact 09/28/24 113 Drainage Amount None 09/28/24 1132 Site Assessment Other (Comment) (Proximal Right Pretibial) 09/28/24 1132 Cristina-Wound Assessment Clean 09/28/24 0800 Treatments Other (Comment);Cleansed 09/28/24 1132 Dressing Other (Comment) (monitor,Leave open to Air) 09/28/24 1132 Number of days: 33 Wound 08/26/24 Surgical Sternum (Active) Dressing Status Clean;Dry;Intact 09/28/24 1128 Drainage Amount None 09/28/24 1128 Site Assessment Other (Comment) (Sternum) 09/28/24 1128 Rcistina-Wound Assessment Clean 09/28/24 0800 Treatments Other (Comment) (monitor) 09/28/24 1128 Dressing Other (Comment) (monitor,leave open to Air) 09/28/24 1128 Number of days: 33 Wound 08/26/24 Surgical Right Pretibial (Active) Dressing Status Clean;Dry;Intact 09/28/24 1133 Drainage Amount None 09/28/24 1133 Site Assessment Other (Comment) (Right pretibial) 09/28/24 1133 Cristina-Wound Assessment Clean 09/28/24 0800 Treatments Cleansed;Other (Comment) (leave open to Air) 09/28/24 1133 Dressing Other (Comment) (monitor,leave open to Air) 09/28/24 1133 Number of days: 33 Wound 08/26/24 Surgical Anterior;Proximal;Right Thigh (Active) Dressing Status Clean;Dry;Intact 09/28/24 1131 Drainage Amount None 09/28/24 1131 Site Assessment Other (Comment) (Anterior proximal Right thigh) 09/28/24 1131 Cristina-Wound Assessment Clean 09/28/24 0800 Dressing Other (Comment) (leave open to Air) 09/28/24 1131 Number of days: 33 Wound Medial Abdomen (Active) Dressing Status Clean;Dry;Intact 09/28/24 1130 Drainage Amount None 09/28/24 1130 Site Assessment Other (Comment) (ABD) 09/28/24 1130 Cristina-Wound Assessment Clean 09/28/24 0800 Treatments Other (Comment);Cleansed (Monitor) 09/28/24 1130 Dressing Other (Comment) 09/28/24 1130 Dressing Changed -- (No dressing,monitor) 09/28/24 1130 Number of days: Musculoskeletal Musculoskeletal Musculoskeletal (WDL): Within Defined Limits Gastrointestinal Gastrointestinal Gastrointestinal (WDL): Within Defined Limits Genitourinary Genitourinary (WDL): Within Defined Limits Urinary Incontinence: No Toileting Program Urinary Toileting Program Being Used: None Bowel Toileting Program Being Used: No Provider Notification Daily Cares/Safety Precautions Cramelita Rojas Fall Risk Activity Highest Level of Mobility Performed (-M): Transferred to chair/commode Nutrition Hygiene Resident Preferences Activities of Daily Living Education Documentation No documentation found. Education Comments No comments found. Jesus Galloway [id number] 07:11:56 Nursing Note Nursing Daily Note Patient alert and verbally responsive. Noted complain of pain to left side lips and right cheek. On assessment, noted small split skin to left side of lips, no bleeding or swelling noted, no swelling to right cheek. Patient admits discomfort with meals. DR Funez for Dr Del Rio notified. New order noted. Patient updated. V/S 97.1 R 18, P 90 BP 118/68, 02sat 97% on room air. Staff will continue to monitor patient for any changes. Nursing Assessment Neurological Neurological Neuro (WDL) : Within Defined Limits Orientation Level: Oriented X4 Cognition: Coherent Speech: Clear Swallow: Able to swallow solids and liquids without difficulty [place] Coma Scale Best Eye Response: Spontaneous Best Verbal Response: Oriented Best Motor Response: Follows commands [place] Coma Scale Score: 15 HEENT Head, Ears, Eyes, Nose, and Throat (WDL): Within Defined Limits Psychosocial Patient Behaviors/Mood: Other (Comment) Did the resident's behaviors or moods prevent you from providing any necessary care?: Provided all necessary care Wandering - Presence and Frequency: Resident has NOT wandered Needs Expressed: Physical Assistive Devices Respiratory Respiratory (WDL): Exceptions to WDL Respiratory Pattern: Other (Comment) Dyspnea Occurrence: Other (Comment) Respiratory Interventions Cardiac Cardiac (WDL): Exceptions to WDL Vascular/Neurovascular Peripheral Vascular Peripheral Vascular (WDL): Exceptions to WDL Integumentary Integumentary (WDL): Exceptions to WDL Skin Temperature: Warm Ranjit Scale Sensory Perceptions: No impairment Moisture: Occasionally moist Activity: Chairfast Mobility: Slightly limited Nutrition: Adequate Friction and Shear: Potential problem Ranjit Scale Score: 17 Wound 08/26/24 Surgical Proximal;Right Pretibial (Active) Dressing Status Clean;Dry;Intact 09/27/241999 Site Assessment Clean 09/27/241999 Cristina-Wound Assessment Clean 09/27/241999 Number of days: 33 Wound 08/26/24 Surgical Sternum (Active) Dressing Status Clean;Dry;Intact 09/27/241999 Site Assessment Clean 09/27/241999 Cristina-Wound Assessment Clean 09/27/241999 Number of days: 33 Wound 08/26/24 Surgical Right Pretibial (Active) Dressing Status Clean;Dry;Intact 09/27/241999 Site Assessment Clean 09/27/241999 Cristina-Wound Assessment Clean 09/27/241999 Number of days: 33 Wound 08/26/24 Surgical Anterior;Proximal;Right Thigh (Active) Dressing Status Clean;Dry;Intact 09/27/241999 Site Assessment Clean 09/27/241999 Cristina-Wound Assessment Clean 09/27/241999 Number of days: 33 Wound Medial Abdomen (Active) Dressing Status Clean;Dry;Intact 09/27/241999 Site Assessment Clean 09/27/241999 Cristina-Wound Assessment Clean 09/27/241999 Number of days: Musculoskeletal Musculoskeletal Musculoskeletal (WDL): Within Defined Limits Upper Extremity (Shoulder, Elbow, Wrist, Hand): No impairment Lower Extremity (Hip, Knee, Ankle, Foot): No impairment Gastrointestinal Gastrointestinal Gastrointestinal (WDL): Within Defined Limits Genitourinary Genitourinary (WDL): Within Defined Limits Urinary Incontinence: No Urine Color: Unable to assess Urine Appearance: Unable to assess Urine Odor: Unable to assess Suprapubic Tenderness: No Genitourinary Symptoms: None Female Genitalia: Intact Toileting Program Urinary Toileting Program Being Used: None Bowel Toileting Program Being Used: No Provider Notification Priority Level: Routine Reason for Communication: Other (Comment) Provider Name: DR Reggie Prado Provider Role: Attending physician Method of Communication: Telephone Provider Notified?: Yes Response: See orders Notification Time: 0126 Shift Event: Other (Comment) Daily Cares/Safety Precautions Carmelita Rojas Fall Risk Activity Nutrition Hygiene Resident Preferences Activities of Daily Living Education Documentation No documentation found. Education Comments No comments found. Karis Gonzalez RN [place] 180145-04-01 19:54:37 Nursing Note Nursing Daily Note Patient is alert and oriented X4. In the morning, blood pressure was low 94/58. She was given some orange juice and, BP was rechecked after about 15 minutes and it improved to 103/61. Later patient complained of feeling cold and the temperature was checked; it was 95.1F. The room A/C thermostat was increased, and after few minutes later, the temperature increased to 97.6F. Patient subsequent BP and temperature were WDL. Patient is resting in the room with call light within reach. Nursing Assessment Neurological Neurological Neuro (WDL) : Within Defined Limits Orientation Level: Oriented X4 Cognition: Coherent Speech: Clear Swallow: Able to swallow solids and liquids without difficulty [place] Coma Scale Best Eye Response: Spontaneous Best Verbal Response: Oriented Best Motor Response: Follows commands Escobar Coma Scale Score: 15 HEENT Head, Ears, Eyes, Nose, and Throat (WDL): Within Defined Limits Psychosocial Patient Behaviors/Mood: Other (Comment) Did the resident's behaviors or moods prevent you from providing any necessary care?: Provided all necessary care Wandering - Presence and Frequency: Resident has NOT wandered Needs Expressed: Denies Assistive Devices Respiratory Respiratory (WDL): Within Defined Limits Respiratory Interventions Cardiac Cardiac (WDL): Within Defined Limits Vascular/Neurovascular Peripheral Vascular Peripheral Vascular (WDL): Within Defined Limits Integumentary Integumentary (WDL): Within Defined Limits Ranjit Scale Sensory Perceptions: No impairment Moisture: Occasionally moist Activity: Chairfast Mobility: Slightly limited Nutrition: Adequate Friction and Shear: Potential problem Ranjit Scale Score: 17 Wound 08/26/24 Surgical Proximal;Right Pretibial (Active) Dressing Status Clean;Dry;Removed;Intact 09/27/24 1053 Drainage Amount Moderate 09/27/24 1053 Drainage Description Serosanguineous 09/27/24 1053 Site Assessment Other (Comment) (Proximal Right pretibial) 09/27/24 1053 Cristina-Wound Assessment Clean 09/27/24 0800 Treatments Cleansed 09/27/24 1053 Dressing Other (Comment) (Apply ca-alg) 09/27/24 1053 Dressing Changed Changed 09/27/24 1053 Number of days: 32 Wound 08/26/24 Surgical Sternum (Active) Dressing Status Clean;Dry;Intact;Removed 09/27/24 1050 Drainage Amount None 09/27/24 1050 Site Assessment Other (Comment) (Sternum) 09/27/24 1050 Cristina-Wound Assessment Clean;Dry;Intact 09/27/24 1050 Treatments Cleansed 09/27/24 1050 Dressing Other (Comment) (Apply dry dresg) 09/27/24 1050 Dressing Changed Changed 09/27/24 1050 Number of days: 32 Wound 08/26/24 Surgical Right Pretibial (Active) Dressing Status Clean;Dry;Removed;Intact 09/27/24 1055 Drainage Amount Moderate 09/27/24 1055 Drainage Description Serosanguineous 09/27/24 1055 Site Assessment Other (Comment) (Right pretibial) 09/27/24 1055 Cristina-Wound Assessment Clean 09/27/24 0800 Treatments Cleansed;Other (Comment) (Apply ca-alg/ag) 09/27/24 1055 Dressing Other (Comment) (Apply dry dresg) 09/27/24 1055 Dressing Changed Changed 09/27/24 1055 Number of days: 32 Wound 08/26/24 Surgical Anterior;Proximal;Right Thigh (Active) Dressing Status Clean;Dry;Removed;Intact 09/27/24 1052 Drainage Amount None 09/27/24 1052 Site Assessment Other (Comment) (Right thigh) 09/27/24 1052 Cristina-Wound Assessment Clean 09/27/24 0800 Treatments Other (Comment) (dry dresg) 09/27/24 1052 Dressing Other (Comment) (Apply dry dresg) 09/27/24 1052 Dressing Changed Changed 09/27/24 1052 Number of days: 32 Wound Medial Abdomen (Active) Dressing Status Clean;Dry;Removed;Intact 09/27/24 1051 Drainage Amount None 09/27/24 1051 Site Assessment Other (Comment) (ABD) 09/27/24 1051 Cristina-Wound Assessment Clean 09/27/24 0800 Treatments Cleansed 09/27/24 1051 Dressing Other (Comment) (Apply dry dresg) 09/27/24 1051 Dressing Changed Changed 09/27/24 1051 Number of days: Musculoskeletal Musculoskeletal Musculoskeletal (WDL): Within Defined Limits Gastrointestinal Gastrointestinal Gastrointestinal (WDL): Within Defined Limits Genitourinary Genitourinary (WDL): Within Defined Limits Urinary Incontinence: No Toileting Program Urinary Toileting Program Being Used: None Bowel Toileting Program Being Used: No Provider Notification Daily Cares/Safety Precautions Mae Bob Fall Risk Activity Highest Level of Mobility Performed (-HLM): Transferred to chair/commode Nutrition Hygiene Resident Preferences Activities of Daily Living Education Documentation No documentation found. Education Comments No comments found. Jesus Galloway LVN [facility]2025-03-31 15:38:25 Nursing Note Nursing Daily Note Patient was taken out by spouse for eye appointment and, she is back in the facility; no new orders. Continues on po Levaquin for UTI. AC/HS Insulin glargine was delivered by [facility]; in the med-cart. Nursing Assessment Neurological Neurological Neuro (WDL) : Within Defined Limits Orientation Level: Oriented X4 Cognition: Coherent Speech: Clear Swallow: Able to swallow solids and liquids without difficulty [place] Coma Scale Best Eye Response: Spontaneous Best Verbal Response: Oriented Best Motor Response: Follows commands Escobar Coma Scale Score: 15 HEENT Head, Ears, Eyes, Nose, and Throat (WDL): Within Defined Limits Psychosocial Patient Behaviors/Mood: Other (Comment) Did the resident's behaviors or moods prevent you from providing any necessary care?: Provided all necessary care Wandering - Presence and Frequency: Resident has NOT wandered Needs Expressed: Physical Assistive Devices Respiratory Respiratory (WDL): Within Defined Limits Respiratory Interventions Cardiac Cardiac (WDL): Exceptions to WDL Vascular/Neurovascular Peripheral Vascular Peripheral Vascular (WDL): Within Defined Limits Integumentary Integumentary (WDL): Exceptions to WDL Ranjit Scale Sensory Perceptions: No impairment Moisture: Occasionally moist Activity: Chairfast Mobility: Slightly limited Nutrition: Adequate Friction and Shear: Potential problem Ranjit Scale Score: 17 Wound 08/26/24 Surgical Proximal;Right Pretibial (Active) Dressing Status Clean;Dry;Intact 09/26/24 0746 Site Assessment Clean 09/26/24 0746 Cristina-Wound Assessment Clean 09/26/24 0746 Number of days: Wound 08/26/24 Surgical Sternum (Active) Dressing Status Clean;Dry;Intact 09/26/24 0747 Site Assessment Clean 09/26/24 0747 Cristina-Wound Assessment Clean 09/26/24 0747 Number of days: 31 Wound 08/26/24 Surgical Right Pretibial (Active) Dressing Status Clean;Dry;Intact 09/26/24 0746 Site Assessment Clean 09/26/24 0746 Cristina-Wound Assessment Clean 09/26/24 0746 Number of days: 31 Wound 08/26/24 Surgical Anterior;Proximal;Right Thigh (Active) Dressing Status Clean 09/26/24 0746 Site Assessment Clean 09/26/24 0746 Cristina-Wound Assessment Clean 09/26/24 0746 Number of days: 31 Wound Medial Abdomen (Active) Dressing Status Clean;Dry;Intact 09/26/24 0747 Site Assessment Clean 09/26/24 0747 Cristina-Wound Assessment Clean 09/26/24 0747 Number of days: Musculoskeletal Musculoskeletal Musculoskeletal (WDL): Within Defined Limits Gastrointestinal Gastrointestinal Gastrointestinal (WDL): Within Defined Limits Genitourinary Genitourinary (WDL): Within Defined Limits Urinary Incontinence: No Toileting Program Urinary Toileting Program Being Used: None Bowel Toileting Program Being Used: No Provider Notification Daily Cares/Safety Precautions Carmelita Rojas Fall Risk Activity Highest Level of Mobility Performed (-HLM): Transferred to chair/commode Nutrition Hygiene Resident Preferences Activities of Daily Living Education Documentation No documentation found. Education Comments No comments found. Jesus Galloway LVN [facility]2025-03-31 03:54:38 Identify possible barriers to meeting goals/advancing plan of care: Summary: [facility]2025-03-31 00:41:14 Nursing Note Nursing Daily Note Patient in bed at this time with no noted distress or discomfort. Denies pain. All routine care provided and tolerated well. Continues on Levofloxacin for UTI with NARN. Safety and fall precaution in place and call light within reach. Nursing Assessment Neurological Neurological Neuro (WDL) : Within Defined Limits Orientation Level: Oriented X4 Cognition: Coherent Speech: Clear Swallow: Able to swallow solids and liquids without difficulty [place] Coma Scale Best Eye Response: Spontaneous Best Verbal Response: Oriented Best Motor Response: Follows commands Escobar Coma Scale Score: 15 HEENT Head, Ears, Eyes, Nose, and Throat (WDL): Within Defined Limits Psychosocial Did the resident's behaviors or moods prevent you from providing any necessary care?: Provided all necessary care Wandering - Presence and Frequency: Resident has NOT wandered Needs Expressed: Physical Assistive Devices Respiratory Respiratory (WDL): Exceptions to WDL Respiratory Pattern: Other (Comment) Dyspnea Occurrence: Other (Comment) Respiratory Interventions Cardiac Cardiac (WDL): Exceptions to WDL Vascular/Neurovascular Peripheral Vascular Peripheral Vascular (WDL): Exceptions to WDL Integumentary Integumentary (WDL): Exceptions to WDL Skin Temperature: Warm Ranjit Scale Sensory Perceptions: No impairment Moisture: Occasionally moist Activity: Chairfast Mobility: Slightly limited Nutrition: Adequate Friction and Shear: Potential problem Ranjit Scale Score: 17 Wound 08/26/24 Surgical Proximal;Right Pretibial (Active) Dressing Status Clean;Dry;Intact 09/25/241914 Site Assessment Clean 09/25/241914 Cristina-Wound Assessment Clean 09/25/241914 Number of days: 31 Wound 08/26/24 Surgical Sternum (Active) Dressing Status Clean;Dry;Intact 09/25/241915 Site Assessment Clean 09/25/241915 Cristina-Wound Assessment Clean 09/25/241915 Number of days: 31 Wound 08/26/24 Surgical Right Pretibial (Active) Dressing Status Clean;Dry;Intact 09/25/241915 Site Assessment Clean 09/25/241915 Cristina-Wound Assessment Clean 09/25/241915 Number of days: 31 Wound 08/26/24 Surgical Anterior;Proximal;Right Thigh (Active) Dressing Status Clean;Dry;Intact 09/25/241914 Site Assessment Clean 09/25/241914 Cristina-Wound Assessment Clean 09/25/241914 Number of days: 31 Wound Medial Abdomen (Active) Dressing Status Clean;Dry;Intact 09/25/241915 Site Assessment Clean 09/25/241915 Cristina-Wound Assessment Clean 09/25/241915 Number of days: Musculoskeletal Musculoskeletal Musculoskeletal (WDL): Within Defined Limits Upper Extremity (Shoulder, Elbow, Wrist, Hand): No impairment Lower Extremity (Hip, Knee, Ankle, Foot): No impairment Gastrointestinal Gastrointestinal Gastrointestinal (WDL): Within Defined Limits Genitourinary Genitourinary (WDL): Within Defined Limits Urinary Incontinence: No Urine Color: Unable to assess Urine Appearance: Unable to assess Urine Odor: Unable to assess Suprapubic Tenderness: No Genitourinary Symptoms: None Toileting Program Urinary Toileting Program Being Used: None Bowel Toileting Program Being Used: No Provider Notification Daily Cares/Safety Precautions Carmelita Rojas Fall Risk Activity Nutrition Hygiene Resident Preferences Activities of Daily Living Education Documentation No documentation found. Education Comments No comments found. Jessika Pereyra RN [facility]2025-03-30 17:58:09 Nursing Note Nursing Daily Note Patient in bed with no signs of distress. Respiration even and unlabored. Call light placed within reach. No complains voiced at this time. Plan of care continues. Nursing Assessment Neurological Neurological Neuro (WDL) : Within Defined Limits Orientation Level: Oriented X4 Cognition: Coherent Speech: Clear Swallow: Able to swallow solids and liquids without difficulty [place] Coma Scale Best Eye Response: Spontaneous Best Verbal Response: Oriented Best Motor Response: Follows commands Escobar Coma Scale Score: 15 HEENT Head, Ears, Eyes, Nose, and Throat (WDL): Within Defined Limits Psychosocial Patient Behaviors/Mood: Other (Comment) (Patient is calm) Did the resident's behaviors or moods prevent you from providing any necessary care?: Provided all necessary care Wandering - Presence and Frequency: Resident has NOT wandered Needs Expressed: Physical Assistive Devices Respiratory Respiratory (WDL): Exceptions to WDL Respiratory Interventions Cardiac Cardiac (WDL): Exceptions to WDL Vascular/Neurovascular Peripheral Vascular Peripheral Vascular (WDL): Exceptions to WDL Integumentary Integumentary (WDL): Exceptions to WDL Ranjit Scale Sensory Perceptions: No impairment Moisture: Occasionally moist Activity: Chairfast Mobility: Slightly limited Nutrition: Adequate Friction and Shear: Potential problem Ranjit Scale Score: 17 Wound 08/26/24 Surgical Proximal;Right Pretibial (Active) Dressing Status Clean;Dry;Intact 09/25/24 0800 Site Assessment Dry 09/25/24 0800 Cristina-Wound Assessment Clean 09/25/24 0800 Number of days: 30 Wound 08/26/24 Surgical Sternum (Active) Dressing Status Clean;Dry;Intact 09/25/24 0800 Site Assessment Dry 09/25/24 0800 Cristina-Wound Assessment Clean 09/25/24 0800 Number of days: 30 Wound 08/26/24 Surgical Right Pretibial (Active) Dressing Status Clean;Dry;Intact 09/25/24 0800 Site Assessment Dry;Clean 09/25/24 0800 Cristina-Wound Assessment Clean 09/25/24 0800 Number of days: 30 Wound 08/26/24 Surgical Anterior;Proximal;Right Thigh (Active) Dressing Status Clean;Dry;Intact 09/25/24 0800 Site Assessment Clean 09/25/24 0800 Cristina-Wound Assessment Clean 09/25/24 0800 Number of days: 30 Wound Medial Abdomen (Active) Dressing Status Clean;Dry;Intact 09/25/24 0800 Site Assessment Dry 09/25/24 0800 Cristina-Wound Assessment Clean 09/25/24 0800 Number of days: Musculoskeletal Musculoskeletal Musculoskeletal (WDL): Within Defined Limits Gastrointestinal Gastrointestinal Gastrointestinal (WDL): Within Defined Limits Genitourinary Genitourinary (WDL): Within Defined Limits Urinary Incontinence: No Urine Color: Yellow/straw Urine Appearance: Clear Urine Odor: Unable to assess Suprapubic Tenderness: No Genitourinary Symptoms: None Female Genitalia: Intact Toileting Program Urinary Toileting Program Being Used: None Bowel Toileting Program Being Used: No Provider Notification Priority Level: Routine Reason for Communication: (Labs Result CBC, BMP) Provider Name: Dr. Bill Provider Role: Attending physician Method of Communication: Call Provider Notified?: Yes Response: No new orders Notification Time: 175 Daily Cares/Safety Precautions Carmelita Rojas Fall Risk Activity Highest Level of Mobility Performed (-[facility]): Lying in bed Nutrition Hygiene Resident Preferences Activities of Daily Living Education Documentation No documentation found. Education Comments No comments found. Dee Michele RN [facility]2025-03-30 17:56:33 Nursing Note Labs Result CBC, BMP reported to Dr. Macias. No new order received at this time. Plan of care continues. [facility]2025-03-30 06:24:22 Nursing Note Nursing Daily Note Patient in bed in a comfortable position. Prn Cough medicine and Prn Nebulizer treatment administered and effective. No issues. Noted. Nursing Assessment Neurological Neurological Neuro (WDL) : Within Defined Limits Orientation Level: Oriented X4 Cognition: Coherent Speech: Clear Swallow: Able to swallow solids and liquids without difficulty Escobar Coma Scale Best Eye Response: Spontaneous Best Verbal Response: Oriented Best Motor Response: Follows commands [place] Coma Scale Score: 15 HEENT Head, Ears, Eyes, Nose, and Throat (WDL): Within Defined Limits Psychosocial Patient Behaviors/Mood: Other (Comment) (Patient is pleasant and cooperative with care) Wandering - Presence and Frequency: Resident has NOT wandered Needs Expressed: Physical Assistive Devices Respiratory Respiratory (WDL): Exceptions to WDL Respiratory Interventions Cardiac Cardiac (WDL): Exceptions to WDL Vascular/Neurovascular Peripheral Vascular Peripheral Vascular (WDL): Exceptions to WDL Integumentary Integumentary (WDL): Exceptions to WDL Ranjit Scale Sensory Perceptions: No impairment Moisture: Occasionally moist Activity: Chairfast Mobility: Slightly limited Nutrition: Adequate Friction and Shear: Potential problem Ranjit Scale Score: 17 Wound 08/26/24 Surgical Proximal;Right Pretibial (Active) Dressing Status Clean;Dry;Intact 09/24/241999 Site Assessment Clean;Dry;Intact 09/24/241999 Cristina-Wound Assessment Clean;Dry;Intact 09/24/241999 Number of days: 30 Wound 08/26/24 Surgical Sternum (Active) Dressing Status Clean;Dry;Intact 09/24/241999 Site Assessment Clean;Dry;Intact 09/24/241999 Cristina-Wound Assessment Clean;Dry;Intact 09/24/241999 Number of days: 30 Wound 08/26/24 Surgical Right Pretibial (Active) Dressing Status Clean;Dry;Intact 09/24/241999 Site Assessment Clean;Dry;Intact 09/24/241999 Cristina-Wound Assessment Clean;Dry;Intact 09/24/241999 Number of days: 30 Wound 08/26/24 Surgical Anterior;Proximal;Right Thigh (Active) Dressing Status Clean;Dry;Intact 09/24/241999 Site Assessment Clean;Dry;Intact 09/24/241999 Cristina-Wound Assessment Clean;Dry;Intact 09/24/241999 Number of days: 30 Wound Medial Abdomen (Active) Dressing Status Clean;Dry;Intact 09/24/241999 Site Assessment Clean;Dry;Intact 09/24/241999 Cristina-Wound Assessment Clean;Dry;Intact 09/24/241999 Number of days: Musculoskeletal Musculoskeletal Musculoskeletal (WDL): Within Defined Limits Gastrointestinal Gastrointestinal Gastrointestinal (WDL): Within Defined Limits Genitourinary Genitourinary (WDL): Within Defined Limits Urinary Incontinence: No Toileting Program Urinary Toileting Program Being Used: None Bowel Toileting Program Being Used: No Provider Notification Daily Cares/Safety Precautions Carmelita Rojas Fall Risk Activity Nutrition Hygiene Resident Preferences Activities of Daily Living Education Documentation No documentation found. Education Comments No comments found. Aileen Atwood RN [place] 48075-03-30 02:42:55 Identify possible barriers to meeting goals/advancing plan of care: Summary: [place] [id number] 13:44:54 Identify possible barriers to meeting goals/advancing plan of care: Summary: [place] 48075-03-29 02:04:44 Nursing Note Nursing Daily Note Patient in bed at this time with, medicated with Neb Treatment as ordered PRN and Robitussin for cough. Denies pain. All routine care provided and tolerated well. Continues on Levofloxacin for UTI with NARN. Safety and fall precaution in place and call light within reach. Nursing Assessment Neurological Neurological Neuro (WDL) : Within Defined Limits Orientation Level: Oriented X4 Cognition: Coherent Speech: Clear Swallow: Able to swallow solids and liquids without difficulty Escobar Coma Scale Best Eye Response: Spontaneous Best Verbal Response: Oriented Best Motor Response: Follows commands [place] Coma Scale Score: 15 HEENT Head, Ears, Eyes, Nose, and Throat (WDL): Within Defined Limits Psychosocial Patient Behaviors/Mood: Hostile, Other (Comment) Harmful Behavior: 1 Did the resident's behaviors or moods prevent you from providing any necessary care?: Provided all necessary care Wandering - Presence and Frequency: Resident has NOT wandered Needs Expressed: Physical Assistive Devices Respiratory Respiratory (WDL): Exceptions to WDL Respiratory Pattern: Other (Comment) Dyspnea Occurrence: Other (Comment) Respiratory Interventions Cardiac Cardiac (WDL): Exceptions to WDL Vascular/Neurovascular Peripheral Vascular Peripheral Vascular (WDL): Exceptions to WDL Integumentary Integumentary (WDL): Exceptions to WDL Skin Temperature: Warm Ranjit Scale Sensory Perceptions: No impairment Moisture: Occasionally moist Activity: Chairfast Mobility: Slightly limited Nutrition: Adequate Friction and Shear: Potential problem Ranjit Scale Score: 17 Wound 08/26/24 Surgical Proximal;Right Pretibial (Active) Dressing Status Clean 09/23/241999 Site Assessment Clean 09/23/241999 Cristina-Wound Assessment Clean 09/23/241999 Number of days: 29 Wound 08/26/24 Surgical Sternum (Active) Dressing Status Clean 09/23/241999 Site Assessment Clean 09/23/241999 Cristina-Wound Assessment Clean 09/23/241999 Number of days: 29 Wound 08/26/24 Surgical Right Pretibial (Active) Dressing Status Clean;Dry;Intact 09/23/241999 Site Assessment Clean 09/23/241999 Cristina-Wound Assessment Clean 09/23/241999 Number of days: 29 Wound 08/26/24 Surgical Anterior;Proximal;Right Thigh (Active) Dressing Status Clean 09/23/241999 Site Assessment Clean 09/23/241999 Cristina-Wound Assessment Clean 09/23/241999 Number of days: 29 Wound Medial Abdomen (Active) Dressing Status Clean 09/23/241999 Site Assessment Clean 09/23/241999 Cristina-Wound Assessment Clean 09/23/241999 Number of days: Musculoskeletal Musculoskeletal Musculoskeletal (WDL): Within Defined Limits Upper Extremity (Shoulder, Elbow, Wrist, Hand): No impairment Lower Extremity (Hip, Knee, Ankle, Foot): No impairment Gastrointestinal Gastrointestinal Gastrointestinal (WDL): Within Defined Limits Genitourinary Genitourinary (WDL): Within Defined Limits Urinary Incontinence: No Urine Color: Unable to assess Urine Appearance: Unable to assess Urine Odor: Unable to assess Suprapubic Tenderness: No Genitourinary Symptoms: None Toileting Program Urinary Toileting Program Being Used: None Bowel Toileting Program Being Used: No Provider Notification Daily Cares/Safety Precautions Mae Bob Fall Risk Activity Nutrition Hygiene Resident Preferences Activities of Daily Living Education Documentation No documentation found. Education Comments No comments found. Jessika Pereyra [id number] 12:36:46 Nursing Note Nursing Daily Note Patient in bed with no signs of distress. Respiration even and unlabored. Call light placed within reach. Continues ABT therapy Levaquin 750 mg for uti x 9 days. No adverse reactions noted at this time. Plan of care continues. Nursing Assessment Neurological Neurological Neuro (WDL) : Within Defined Limits Orientation Level: Oriented X4 Cognition: Coherent Speech: Clear Swallow: Able to swallow solids and liquids without difficulty Escobar Coma Scale Best Eye Response: Spontaneous Best Verbal Response: Oriented Best Motor Response: Follows commands Escobar Coma Scale Score: 15 HEENT Head, Ears, Eyes, Nose, and Throat (WDL): Within Defined Limits Psychosocial Patient Behaviors/Mood: Other (Comment) Harmful Behavior: 1 Did the resident's behaviors or moods prevent you from providing any necessary care?: Provided all necessary care Wandering - Presence and Frequency: Resident has NOT wandered Needs Expressed: Physical Assistive Devices Respiratory Respiratory (WDL): Within Defined Limits Respiratory Pattern: Other (Comment) Respiratory Interventions Cardiac Cardiac (WDL): Exceptions to WDL Vascular/Neurovascular Peripheral Vascular Peripheral Vascular (WDL): Exceptions to WDL Integumentary Integumentary (WDL): Exceptions to WDL Ranjit Scale Sensory Perceptions: No impairment Moisture: Occasionally moist Activity: Chairfast Mobility: Slightly limited Nutrition: Adequate Friction and Shear: Potential problem Ranjit Scale Score: 17 Musculoskeletal Musculoskeletal Musculoskeletal (WDL): Within Defined Limits Gastrointestinal Gastrointestinal Gastrointestinal (WDL): Within Defined Limits Genitourinary Genitourinary (WDL): Within Defined Limits Urinary Incontinence: No Urine Color: Yellow/straw Urine Appearance: Clear Urine Odor: Unable to assess Suprapubic Tenderness: No Genitourinary Symptoms: None Toileting Program Urinary Toileting Program Being Used: None Bowel Toileting Program Being Used: No Provider Notification Daily Cares/Safety Precautions MaeJavier Fall Risk Activity Highest Level of Mobility Performed ([facility]): Lying in bed Nutrition Hygiene Resident Preferences Activities of Daily Living Education Documentation No documentation found. Education Comments No comments found. Dee Michele RN [place] [id number] 04:51:34 Nursing Note Nursing Daily Note Patient sleeps at intervals. No discomfort noted. Dressing clean and dry to mid sternum. Nursing Assessment Neurological Neurological Neuro (WDL) : Within Defined Limits Orientation Level: Oriented X4 Cognition: Coherent Speech: Clear Swallow: Able to swallow solids and liquids without difficulty [place] Coma Scale Best Eye Response: Spontaneous Best Verbal Response: Oriented Best Motor Response: Follows commands [place] Coma Scale Score: 15 HEENT Head, Ears, Eyes, Nose, and Throat (WDL): Within Defined Limits Psychosocial Patient Behaviors/Mood: Hostile, Other (Comment) Harmful Behavior: 1 Did the resident's behaviors or moods prevent you from providing any necessary care?: Provided all necessary care Wandering - Presence and Frequency: Resident has NOT wandered Needs Expressed: Physical Assistive Devices Respiratory Respiratory (WDL): Exceptions to WDL Respiratory Pattern: Other (Comment) Respiratory Interventions Cardiac Cardiac (WDL): Exceptions to WDL Heart Sounds: (S/P CABG) Vascular/Neurovascular Peripheral Vascular Peripheral Vascular (WDL): Exceptions to WDL Integumentary Integumentary (WDL): Exceptions to WDL Skin Temperature: Warm Ranjit Scale Sensory Perceptions: No impairment Moisture: Occasionally moist Activity: Chairfast Mobility: Slightly limited Nutrition: Adequate Friction and Shear: Potential problem Ranjit Scale Score: 17 Wound Medial Abdomen (Active) Dressing Status Clean;Dry;Intact 09/21/241953 Site Assessment Clean 09/21/241953 Cristina-Wound Assessment Clean 09/21/241953 Number of days: Musculoskeletal Gastrointestinal Genitourinary Provider Notification Daily Cares/Safety Precautions Carmelita Rojas Fall Risk Activity Nutrition Hygiene Resident Preferences Activities of Daily Living Education Documentation No documentation found. Education Comments No comments found. Karis Gonzalez RN [facility] [id number] 19:51:19 Nursing Note Nursing Daily Note Patient continues on Levaquin 750mg for UTI, day 1 of 9; well tolerated, NARN. Will continue to monitor. Patient is alert and oriented X 3-4, able to verbalize needs. Duo Neb was given as needed, twice this shift. Heparin injection was applied to the right lower abdomen; well tolerated. Patient participated in physical therapy. Weighed while standing. Weight was 173.6 lbs. Nursing Assessment Neurological Neurological Neuro (WDL) : Within Defined Limits Cognition: Coherent Speech: Clear Swallow: Able to swallow solids and liquids without difficulty Escobar Coma Scale Best Eye Response: Spontaneous Best Verbal Response: Oriented Best Motor Response: Follows commands [place] Coma Scale Score: 15 HEENT Head, Ears, Eyes, Nose, and Throat (WDL): Within Defined Limits Psychosocial Patient Behaviors/Mood: Other (Comment) Did the resident's behaviors or moods prevent you from providing any necessary care?: Provided all necessary care Wandering - Presence and Frequency: Resident has NOT wandered Needs Expressed: Physical Assistive Devices Respiratory Respiratory (WDL): Within Defined Limits Respiratory Interventions Cardiac Cardiac (WDL): Within Defined Limits Vascular/Neurovascular Peripheral Vascular Peripheral Vascular (WDL): Within Defined Limits Integumentary Integumentary (WDL): Within Defined Limits Ranjit Scale Sensory Perceptions: No impairment Moisture: Rarely moist Activity: Walks occasionally Mobility: Slightly limited Nutrition: Adequate Friction and Shear: No apparent problem Ranjit Scale Score: 20 Wound Medial Abdomen (Active) Dressing Status Clean 09/21/24 0800 Site Assessment Clean 09/21/24 0800 Cristina-Wound Assessment Clean 09/21/24 0800 Number of days: Musculoskeletal Musculoskeletal Musculoskeletal (WDL): Within Defined Limits Gastrointestinal Gastrointestinal Gastrointestinal (WDL): Within Defined Limits Genitourinary Genitourinary (WDL): Within Defined Limits Urinary Incontinence: No Urine Color: Unable to assess Urine Appearance: Unable to assess Urine Odor: Unable to assess Suprapubic Tenderness: No Genitourinary Symptoms: None Toileting Program Urinary Toileting Program Being Used: None Bowel Toileting Program Being Used: No Provider Notification Daily Cares/Safety Precautions Carmelita Rojas Fall Risk Activity Highest Level of Mobility Performed (-HLM): Transferred to chair/commode Nutrition Hygiene Resident Preferences Activities of Daily Living Personal Hygiene Did the resident do personal hygiene activities?: Yes Education Documentation No documentation found. Education Comments No comments found. Jesus Galloway LVN [id number] 15:38:47 Drug Regimen Review Name: Deepthi Moore : 1955 Age: 68 y.o. 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 DM (diabetes mellitus) ([facility]) Essential (primary) hypertension Ischemic cardiomyopathy Acute blood loss anemia ([facility]) Macular degeneration Cardiogenic shock ([facility]) Acute post-operative pain Superficial vein thrombosis Pain Open-angle glaucoma Constipation Other hyperlipidemia Hypokalemia Glaucoma Bilateral ocular hypertension DVT (deep venous thrombosis) ([facility]) ([facility]) Acute on chronic systolic (congestive) heart failure ([facility]) S/P CABG x 4 Cataract 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 ([facility]) ([facility]) Diabetic macular edema ([facility]) History of vitrectomy Primary open angle glaucoma of both eyes Proliferative diabetic retinopathy ([facility]) SOB (shortness of breath) Flu vaccine need Need for pneumococcal vaccine Screening-pulmonary TB Insomnia Acute non-ST elevation myocardial infarction (NSTEMI) ([facility]) ([facility]) UTI (urinary tract infection) due to urinary indwelling catheter ([facility]) ([facility]) Sepsis ([facility]) EDUARDA (acute kidney injury) ([facility]) Hyperbilirubinemia Gram negative sepsis ([facility]) ([facility]) Acute combined systolic (congestive) and diastolic (congestive) heart failure ([facility]) Cough Muscle spasm Septicemia ([facility]) Allergies: Allergies Allergen Reactions Penicillins Other Upset stomach Other reaction(s): Other (See Comments) Upset stomach Diet: Adult Diet Regular; 4 gm Sodium, No concentrated sweets Orderered Tube Feeds and Supplements Medication Dose Route Frequency Provider Last Rate Last Admin None Tube Feeding Access: Crush Meds: No Vaccine History: Immunization History Administered Date(s) Administered Influenza, High Dose Seasonal, Preservative Free 09/12/2024 Moderna SARS-CoV-2 08/31/2020 Pfizer Herrera Cap SARS-CoV-2 09/25/2021 Pfizer Purple Cap SARS-CoV-2 04/29/2021 [facility] SARS-CoV-2 Bivalent 30 mcg/0.3 mL 03/25/2022, 10/15/2022 SARS-COV-2 (COVID-19) vaccine, mRNA, spike protein, LNP, preservative free, 50 mcg/0.5 mL dose 03/21/2023, 02/28/2024 Medications Current Medications Medication Indication(s) Dose Route Frequency Last Admin acetaminophen (Tylenol) tablet 650 mg Pain 650 mg Oral q4h PRN aspirin chewable tablet 81 mg Atherosclerotic Disease 81 mg Oral Daily 81 mg at 09/21/24 0900 brimonidine (AlphaGAN) 0.2 % ophthalmic solution 1 drop Ocular Hypertension 1 drop Right Eye BID 1 drop at 09/21/24 0900 carvedilol (Coreg) tablet 3.125 mg Hypertension 3.125 mg Oral BID with meals 3.125 mg at 09/21/24 0800 clopidogrel (Plavix) tablet 75 mg Coronary Artery Bypass Graft 75 mg Oral Daily 75 mg at 09/21/24 0900 furosemide (Lasix) tablet 40 mg Heart Failure 40 mg Oral Daily 40 mg at 09/21/24 0900 guaiFENesin (Robitussin) 100 MG/5ML liquid 200 mg Cough 200 mg Oral 4x daily PRN 200 mg at 09/21/24 0038 heparin injection 5,000 Units Prophylaxis of Deep Vein Thrombosis in Thoracic Surgery 5,000 Units Subcutaneous q12h 5,000 Units at 09/21/24 0200 insulin glargine (Lantus) pen 40 Units Type 2 Diabetes Mellitus 40 Units Subcutaneous BID 40 Units at 09/21/24 0900 insulin lispro (HumaLOG, Admelog) injection 4-16 Units Type 2 Diabetes Mellitus 4-16 Units Subcutaneous TID PRN ipratropium-albuterol (Duo-Neb) 0.5-2.5 mg/3 mL nebulizer solution 3 mL Chronic Obstructive Pulmonary Disease 3 mL Nebulization q4h PRN 3 mL at 09/21/24 1330 latanoprost (Xalatan) 0.005 % ophthalmic solution 1 drop Glaucoma 1 drop Both Eyes Nightly 1 drop at 09/20/24 2200 levoFLOXacin (Levaquin) tablet 750 mg Uncomplicated Urinary Tract Infection 750 mg Oral Daily 750 mg at 09/21/24 0900 methocarbamol (Robaxin) tablet 750 mg Musculoskeletal Pain 750 mg Oral q8h 750 mg at 09/21/24 0600 potassium chloride CR (Klor-Con M20) ER tablet 20 mEq Hypokalemia 20 mEq Oral Daily 20 mEq at 09/21/24 0900 rosuvastatin (Crestor) tablet 20 mg Hyperlipidemia 20 mg Oral Daily 20 mg at 09/21/24 0900 sennosides (Senokot) tablet 17.2 mg Bowel Evacuation 2 tablet Oral BID 17.2 mg at 09/21/24 0900 timolol (Timoptic) 0.5 % ophthalmic solution 1 drop Secondary Glaucoma 1 drop Both Eyes BID 1 drop at 09/21/24 0900 Antibiotic Usage: In use Name: Levaquin 750mg 1 po qd Indication: UTI Duration: 9 days Last Dose Change: Psychotropic Usage: None Anticoagulant Usage: In use Name: Aspirin 81mg chew 1 po every day Plavix 75mg 1 po every day Heparin 5000 units subcutaneous Q12H(DVT) Indication: Plavix (CAD), Aspirin (Atherosclerotic Disease) Duration: TBT(Plavix), Aspirin (indefinite)Heparin(no duration given will follow up) Diuretics Usage: In use Name: Lasix 40mg 1 po every day Indication: HF Insulin Usage: In use Name: Lantus 40 units subcutaneous bid Lispro 4-16 untis tid prn per SS protocol Indication: Type 11 diabetes Opioids Usage: None PPI: None Renal Disease: Yes Liver Disease: No Last 4 Vitals 09/20/24 2348 09/21/24 0700 09/21/24 0800 09/21/24 1251 BP: 142/69 152/71 152/71 (!) 163/79 Pulse: 88 81 81 97 Resp: 20 20 18 Temp: 36.4 ?C (97.5 ?F) 36.4 ?C (97.6 ?F) SpO2: 97% 96% 98% Oxygen Therapy: None (Room air) None (Room air) Lab Review (Significant Abnormals): Admission on 09/20/2024 Component Date Value POC Glucose 09/20/2024 129 (A) No results displayed because visit has over 200 results. Admission on 09/07/2024, Discharged on 09/14/2024 Component Date Value External POC Glucose 09/08/2024 193 External POC Glucose 09/08/2024 222 External POC Glucose 09/08/2024 228 POC Glucose 09/08/2024 276 (A) Sodium Lvl 09/09/2024 136 Potassium Lvl 09/09/2024 3.7 Chloride Lvl 09/09/2024 97 (L) CO2 Lvl 09/09/2024 30.5 Anion Gap 09/09/2024 12.2 Glucose Lvl 09/09/2024 240 (H) Creatinine Lvl 09/09/2024 0.86 BUN 09/09/2024 13 B/C Ratio 09/09/2024 15 Protein 09/09/2024 7.9 Albumin Lvl 09/09/2024 3.9 Globulin, Calc 09/09/2024 4.0 Albumin/Globulin Ratio 09/09/2024 0.98 Calcium Lvl 09/09/2024 9.3 ALT 09/09/2024 10 AST 09/09/2024 32 Alkaline Phosphatase 09/09/2024 132 (H) Bilirubin Total 09/09/2024 1.24 (H) eGFR 09/09/2024 74 WBC 09/09/2024 12.19 (H) RBC 09/09/2024 4.16 NRBC % 09/09/2024 0.0 Hgb 09/09/2024 11.0 Hct 09/09/2024 34.3 MCV 09/09/2024 82.5 MCH 09/09/2024 26.4 MCHC 09/09/2024 32.1 RDW - SD 09/09/2024 71.0 (H) Plt Count 09/09/2024 243 MPV 09/09/2024 9.3 Segs % 09/09/2024 68.3 Lymphs % 09/09/2024 19.2 Monos % 09/09/2024 9.1 Eos % 09/09/2024 2.7 Basos % 09/09/2024 0.5 Immature Grans % 09/09/2024 0.2 Segs # 09/09/2024 8.32 (H) Lymphs # 09/09/2024 2.34 Monos # 09/09/2024 1.11 (H) Eos # 09/09/2024 0.33 Basos # 09/09/2024 0.06 Imm Grans # 09/09/2024 0.03 POC Glucose 09/09/2024 243 (A) External POC Glucose 09/09/2024 243 POC Glucose 09/09/2024 330 (A) External POC Glucose 09/09/2024 330 Bilirubin Direct 09/09/2024 0.5 (H) POC Glucose 09/09/2024 341 (A) External POC Glucose 09/09/2024 341 POC Glucose 09/10/2024 230 (A) External POC Glucose 09/10/2024 230 POC Glucose 09/10/2024 274 (A) External POC Glucose 09/10/2024 274 POC Glucose 09/10/2024 195 (A) External POC Glucose 09/10/2024 195 POC Glucose 09/10/2024 106 (A) POC Glucose 09/11/2024 214 (A) External POC Glucose 09/11/2024 214 POC Glucose 09/11/2024 315 (A) External POC Glucose 09/11/2024 315 POC Glucose 09/11/2024 243 (A) External POC Glucose 09/11/2024 243 Glucose Lvl 09/13/2024 162 (H) BUN 09/13/2024 16 Creatinine Lvl 09/13/2024 0.76 Sodium Lvl 09/13/2024 137 Potassium Lvl 09/13/2024 4.3 Chloride Lvl 09/13/2024 100 CO2 Lvl 09/13/2024 26.1 Anion Gap 09/13/2024 15.2 Calcium Lvl 09/13/2024 9.7 eGFR 09/13/2024 85 Glucose Lvl 09/13/2024 214 (H) BUN 09/13/2024 18 Creatinine Lvl 09/13/2024 1.03 (H) Sodium Lvl 09/13/2024 136 Potassium Lvl 09/13/2024 4.3 Chloride Lvl 09/13/2024 99 CO2 Lvl 09/13/2024 25.4 Anion Gap 09/13/2024 15.9 Calcium Lvl 09/13/2024 9.9 eGFR 09/13/2024 59 (L) Coronavirus (COVID-19) N* 09/13/2024 Not Detected WBC 09/13/2024 14.11 (H) RBC 09/13/2024 4.44 NRBC % 09/13/2024 0.0 Hgb 09/13/2024 11.3 Hct 09/13/2024 37.2 MCV 09/13/2024 83.8 MCH 09/13/2024 25.5 MCHC 09/13/2024 30.4 RDW - SD 09/13/2024 70.7 (H) Plt Count 09/13/2024 265 MPV 09/13/2024 9.7 Segs % 09/13/2024 84.9 (H) Lymphs % 09/13/2024 7.9 (L) Monos % 09/13/2024 5.3 Eos % 09/13/2024 0.8 Basos % 09/13/2024 0.4 Immature Grans % 09/13/2024 0.7 Segs # 09/13/2024 11.98 (H) Lymphs # 09/13/2024 1.11 Monos # 09/13/2024 0.75 Eos # 09/13/2024 0.11 Basos # 09/13/2024 0.06 Imm Grans # 09/13/2024 0.10 (H) Urine Culture 09/13/2024 10,000-50,000 CFU/mL Skin Kellen Urine Culture 09/13/2024 >=100,000 CFU/mL Escherichia coli (A) UA Color 09/13/2024 Yellow UA Turbidity 09/13/2024 Moderate (A) UA Spec Grav 09/13/2024 1.014 UA pH 09/13/2024 5.0 UA Protein 09/13/2024 30 (A) UA Glucose 09/13/2024 500 (A) UA Ketones 09/13/2024 Negative UA Bilirubin 09/13/2024 Negative UA Blood 09/13/2024 Moderate (A) UA Urobilinogen 09/13/2024 <=1.0 UA Nitrite 09/13/2024 Positive (A) UA Leuk Esterase 09/13/2024 Moderate (A) UA Ascorbic Acid 09/13/2024 Negative UA Sq Epi 09/13/2024 Occasional UA WBC 09/13/2024 >182 (H) UA RBC (Num) 09/13/2024 5 (H) UA Bacteria 09/13/2024 Few UA Mucus 09/13/2024 Few No results displayed because visit has over 200 results. Pre-Admission Testing on 08/25/2024 Component Date Value Prothrombin Time (PT) 08/25/2024 16.0 (H) INR 08/25/2024 1.26 (H) PTT 08/25/2024 30.4 Plavix Effect Plt 08/25/2024 243 Glucose Lvl 08/25/2024 179 (H) BUN 08/25/2024 10 Creatinine Lvl 08/25/2024 0.90 Sodium Lvl 08/25/2024 141 Potassium Lvl 08/25/2024 4.2 Chloride Lvl 08/25/2024 107 CO2 Lvl 08/25/2024 30.4 Anion Gap 08/25/2024 7.8 (L) Calcium Lvl 08/25/2024 8.8 eGFR 08/25/2024 70 Hgb A1C 08/25/2024 8.32 (H) MRSA by PCR 08/25/2024 Negative UA Color 08/25/2024 Light Yellow UA Turbidity 08/25/2024 Clear UA Spec Grav 08/25/2024 1.003 UA pH 08/25/2024 8.0 UA Protein 08/25/2024 Negative UA Glucose 08/25/2024 Negative UA Ketones 08/25/2024 Negative UA Bilirubin 08/25/2024 Negative UA Blood 08/25/2024 Negative UA Urobilinogen 08/25/2024 <=1.0 UA Nitrite 08/25/2024 Negative UA Leuk Esterase 08/25/2024 Negative UA Ascorbic Acid 08/25/2024 Negative UA Sq Epi 08/25/2024 None Seen UA WBC 08/25/2024 0 UA RBC (Num) 08/25/2024 0 UA Bacteria 08/25/2024 Occasional UA Hyaline Casts 08/25/2024 1 Ventricular Rate 08/25/2024 62 Atrial Rate 08/25/2024 62 AR Interval 08/25/2024 158 QRS Duration 08/25/2024 110 QT/QTc 08/25/2024 466 QTc Calculation 08/25/2024 472 P-Speedwell 08/25/2024 72 R-[place]well 08/25/2024 70 T-[place]well 08/25/2024 147 ABO Grouping 08/25/2024 O Rh Type 08/25/2024 Positive Antibody Screen 08/25/2024 Negative pH Art 08/25/2024 7.41 PCO2 Art 08/25/2024 39 PO2 Art 08/25/2024 99 HCO3 Art 08/25/2024 24.7 BE Art 08/25/2024 0 O2 Sat Art 08/25/2024 97.7 Triglycerides 08/25/2024 84 Cholesterol 08/25/2024 82 LDL (Calculated) 08/25/2024 32 HDL Cholesterol 08/25/2024 33.5 VLDL 08/25/2024 17 CHD Risk 08/25/2024 2.45 (L) WBC 08/25/2024 8.58 RBC 08/25/2024 4.00 NRBC % 08/25/2024 0.0 Hgb 08/25/2024 11.9 Hct 08/25/2024 37.8 MCV 08/25/2024 94.5 MCH 08/25/2024 29.8 MCHC 08/25/2024 31.5 RDW - SD 08/25/2024 46.6 Plt Count 08/25/2024 168 (L) MPV 08/25/2024 10.9 Segs % 08/25/2024 46.2 Lymphs % 08/25/2024 41.0 Monos % 08/25/2024 9.3 Eos % 08/25/2024 2.8 Basos % 08/25/2024 0.6 Immature Grans % 08/25/2024 0.1 Segs # 08/25/2024 3.96 Lymphs # 08/25/2024 3.52 Monos # 08/25/2024 0.80 (H) Eos # 08/25/2024 0.24 Basos # 08/25/2024 0.05 Imm Grans # 08/25/2024 0.01 Estimated Creatinine Clearance: 66.4 mL/min (by C-G formula based on SCr of 0.84 mg/dL). Medication Review Analysis: A drug regimen review has been completed. Medication reconciliation complete. Please see below for recommendations . Recommendations: Nursing: reminder, fall precautions on file " Please assist pt with all activities of daily living. Reminder max of 3000mg/day of tylenol from all sources. Please monitor pt for signs of bleeding, cureent order's for plavix, heparin and aspirin. Please follow order parameters when administering medications for blood pressure control. Please check blood sugar as scheduled per patient's chart. Providers: A drug regimen review has been completed. Recommend hold parameters on lasix " Hold for BP < 110/50". Recommend hold parameters on orders for heparin, aspirin and plavix " 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". Recommend hold parameters on Lantus insulin " Hold if pt is not eating or blood sugar less than 110. If held x3 doses , please notify MD or STRAIGHT RULING MACHINE OPERATOR ". I have reviewed, and made suggestions as appropriate, to the resident's medications. There were clinically significant medication issues were identified. Hammad Carranza PharmD [facility]2025-03-26 03:25:36 Nursing Note Patient re-admit to skilled services under the medical services of Dr. Del Rio for UTI(E-Coli),CHF,S/P CABG x 4, DM Type 2. Arrived in a wheel chair, from [facility] accompanied by spouse. Alert and oriented x 4, respiration even and unlabored with bowel sound present x 4, noted with cough . Skin intact with bruises to BUE,BLE, abdominal area. Surgical incision to Mid chest and RLE. Resident (Justyn Prado MD) notified of resident admission and medication review and reconciled, order received to continue all hospital discharged orders, Resident up-to-date on Immunization. Denies pain. Patient oriented to bed and TV remote and call light. Safety in place and call light within reach. [facility]2025-03-25 19:43:00* * Auth/Cert (Routine) Specialty Diagnoses / Procedures Referred By Contac t Referred To Contact Diagnoses Acute non-ST elevation myocardial infarction (NSTEMI) (CMS/HCC) (HCC) Procedures [place] [address] [place] [address] IP/OBS CARE SF/LOW MDM 40 MINUTES Sonal Saldivar MD [address] [address] Phone: tel: fax: [facility] (Emergency) [address] [place] [address] Phone: tel: Referral ID Status Reason Start Date Expiration Date Visits Re quested Visits Authorized [id number] 1 [id number] 19[facility]43:00 [id number] 19:43:00* Intimate Partner Violence Question Answer Date of Assessment Author Within the last year, have y ou been humiliated or emotionally abused in other ways by your partner or ex-partner? No 09/14/2024 1:03 PM Mele Lopez RN Within the last year, have y ou been afraid of your partner or ex-partner? No 09/14/2024 1:03 PM Mele Lopez RN Within the last year, have y ou been raped or forced to have any kind of sexual activity by your partner or ex-partner? No 09/14/2024 1:03 PM Mele Lopez RN Within the last year, have y ou been kicked, hit, slapped, or otherwise physically hurt by your partner or ex-partner? No 09/14/2024 1:03 PM Catie Lopez RN * Calculated C-SSRS Risk Score (Lifetime/Recent) Answer Date of Assessment Author No Risk Indicated 09/14/2024 2:46 AM Noel Diaz, PATRICIA * [place] Suicide Severity Rating Scale (Screener/Recent Self-Report) Question Answer Date of Assessment Author 1. Wish to be (Past 1 Month) No 025 2:46 AM Noel Diaz, PATRICIA 2. Non-Specific Active Suici darlene Thoughts (Past 1 Month) No 09/14/2024 2:46 AM CDT Reggie Camejo RN 6. Suicidal Behavior (Lifetime) No 2:46 AM CDT Noel Camejo, PATRICIA [place] [id number] 19:43:00* Kathe Millan RN - 09/20/2024 7:28 PM CDT Patient discharged to [facility] via bringing her to facility as ambulance unsure if will come. * Beth Cisneros, PT - 09/20/2024 3:37 PM CDT Physical Therapy Treatment Patient Name: Deepthi Moore Today’s Date: 09/20/24 Room Number: [id number]* Patient's Preferred Language: [place] PT Assessment and Plan: Assessment Patient has met all therapy goals. She is independent and safe with functional mobility at this time. No further PT needs identified. She will be discharged from PT at this time. This has been discussed with patient and she has expressed understanding. Prognosis: Good Medical Staff Made Aware: Yes Plan (Last filed value by PT) Treatment Plan/Goals Established with Patient/Caregiver: Yes Treatment/Interventions: Bed mobility training, Functional activities, Gait training, Transfer training, Therapeutic exercises, Patient education PT Plan: No skilled PT No Skilled PT: (Independent and safe with functional mobility) PT Frequency: 3-4 times per week until discharge Equipment Recommended: (None for amb) PT Recommended Transfer Status: Independent PT- Okay to Discharge from Therapy: Yes AM-PAC Basic Mobility Turning in bed without bedrails: None Lying on back to sitting on edge of flat bed: None Bed to chair: None Standing up from chair: None Walk in room: None Climbing 3-5 stairs: None Mobility Inpatient Raw Score: 24 JH-HLM Goal: 7 [facility] Highest Level of Mobility (JH-HLM) Scale Highest Level of Mobility Performed (JH-HLM): Walked 250 feet or more (i.e. several laps on unit) Subjective:Patient agreed to work with PT Current Problem:This is a 68 y.o. female who is admitted to [facility] with Pericardial effusion [I31.39] Abnormal EKG [R94.31] Acute febrile illness [R50.9] Acute non-ST elevation myocardial infarction (NSTEMI) (CMS/HCC) (HCC) [I21.4] Pain:Pain Assessment Pain Assessment: DVPRS Pain Score: 0 Pain Rating Scale (DVPRS): No pain Objective: Precautions: LE Weight Bearing Status: FWB Isolation Status: Contact Activity Tolerance:Early Mobility/Exercise Safety Screen: Proceed with mobilization - No exclusion criteria met Cognition:Overall Cognitive Status: Within Functional Limits Behavior/Cognition: Alert, Cooperative, Pleasant mood Orientation Level: Oriented X4 Treatments:Therapeutic Activity Time Entry: 10 Therapeutic Activity 1: Patient resting in recliner, stood independently. Amb to bed to assess bed mobility since patient states she needs help with task. Bed mobility supien to sit and sit to supine was performed independently. Patient proceeded to amb toward cade without AD and post amb assisted back to recliner at Independent level. Bed Mobility:Bed Mobility Bed Mobility: Yes Transfers:Transfers Transfer: Yes Gait Training:Gait Training Time Entry: 15 Gait Training Activity 1 Distance (enter in feet): >400 feet Gait Training Activity 1: Indoor surface Assistive Devices And Adaptive Equipments: No device Level of Assistance 1: Independent Gait Training Activity 1 Comment: No issues with amb. Stable balance, good step length/width and gait zack. No SOB. Stairs:Stairs Activity 1 Rails 1: Bilateral Assistive Devices And Adaptive Equipments: No device Level of Assistance 1: Independent Stairs comment 1: No issues noted with stairs assessment Outcome Measures: 09/20/24 1100Borg RPE Scale Lulu RPE Scale - How Strenuous and Tiring The Work Feels 13 - Somewhat hard Patient EducationEducation Documentation Precautions, taught by Beth Cisneros PT at 09/20/2024 3:36 PM. Learner: Patient Readiness: Eager Method: Explanation Response: Verbalizes Understanding, Demonstrated Understanding Education CommentsNo comments found. GoalEncounter Goals Encounter Goals (Active) Patient will perform upper body dressing with SBA assist to improveindependence with dressing. Start: 09/14/24 Expected End: 09/28/24 Patient will ambulate >400 feet distance using no device with no assistance Independent (Progressing) Start: 09/14/24 Expected End: 10/12/24 Patient will ascend and descend 4-6 steps with rail no assistance Mod I (Progressing) Start: 09/14/24 Expected End: 10/12/24 Patient will perform supine to sit on bed/sit to supine with no assistance demonstrating control Independent (Progressing) Start: 09/14/24 Expected End: 10/12/24 Encounter Goals (Resolved) Patient will perform chair to and from bed transfer with no assistance Independent (Completed) Start: 09/14/24 Expected End: 10/12/24 Resolved: 09/16/24 Post Therapy Checklist - in chair, call gonzalez within reach, and bed/chair alarm in place Time Calculation:Start Time: 1100 Stop Time: 1126 Time Calculation (min): 26 min PT Recreation Leader Used: N.A. Treatment Note: If this is the last documented treatment, then it will signify discharge from acute care prior to discharge from the therapy service and will serve as the discharge summary. Beth Cisneros PT * Kimmie Chawla, OT - 09/20/2024 10:25 AM CDT Occupational Therapy Treatment Deepthi Moore 1955 Room [id number]* Assessment: Pt is been seen by OT for skilled treatment focus on ADL"s and functional strength. Pt cont to demo steady progress towards OT goals. She is limited by activity tolerance and functional weakness. Pt is performing below her baseline. She will continued to benefit from OT skilled services while all goals are met. OT Assessment Results: Impaired ADL status, Impaired upper extremity strength, Impaired endurance, Impaired fine motor control, Impaired functional mobility, Impaired right upper extremity, Impaired left upper extremity Prognosis: Good Barriers to Discharge: Complicated medical history Evaluation/Treatment Tolerance: Patient tolerated treatment well Medical Staff Made Aware: Yes Strengths: Ability to acquire knowledge Plan: Treatment Plan/Goals Established with Patient/Caregiver: Yes Treatment Interventions: ADL retraining, Endurance training, Functional transfer training, UE strengthening/ROM OT Planned Treatments: Discharge OT Plan: Skilled OT OT Frequency: 3-5 times per week until discharge Equipment Recommended: Shower bath chair OT - OK to Discharge: Yes AM-PAC Daily Activity: Putting on and taking off regular lower body clothing: A Little Bathing (including washing, rinsing, drying): A Little Toileting, which includes using toilet, bedpan or urinal: A Little Putting on and taking off regular upper body clothing: A Little Taking care of personal grooming such as brushing teeth: None Eating Meals: None AM-PAC Daily Activity Raw Score: 20 [facility] Highest Level of Mobility (-HLM) Scale Highest Level of Mobility Performed (-HLM): Walked 10 steps or more (i.e. walked to restroom) Preferred Language: [place]ican Subjective Pt agreed Treatment: 09/20/24 1025OT Last Visit OT Received On 09/20/24 Time Calculation Start Time 1025 Stop Time 1049 Time Calculation (min) 24 min Pain Assessment Pain Assessment DVPRS Pain Score 0 Pain Rating Scale (DVPRS) 0 ADL Self Care/Home Management (ADLs) Time Entry 14 Eating Assistance Independent Grooming Assistance Independent Bathing Assistance Supervision/touching assistance UE Dressing Assistance Supervision/touching assistance LE Dressing Assistance Supervision/touching assistance Toileting Assistance Supervision/touching assistance Bed Mobility Bed Mobility No Transfers Transfer Yes Transfer 1 Technique 1 Via walking Transfer To/From Other (specify) (Sink) Assistive Devices And Adaptive Equipments Walker, four-wheeled Transfers 2 Technique 2 Via walking Level of Assistance 2 Supervision/touching assistance Transfer To/From Other (specify) (household distance) Assistive Devices And Adaptive Equipments Walker, front-wheeled Toilet Transfers Toilet Transfer To/From Toilet Transfer Type Via walking Level of Assistance Supervision/touching assistance Assistive Devices And Adaptive Equipments Walker, Front-wheeled Activity Tolerance Endurance Tolerates 10 - 20 min exercise with multiple rests Sitting Balance Moves/returns truncal midpoint 1-2 inches in multiple planes Early Mobility/Exercise Safety Screen Proceed with mobilization - No exclusion criteria met Therapeutic Procedures Time Entry Therapeutic Exercise Time Entry 10 Therapeutic Exercise Therapeutic Exercise Activity 1 STS x5 Therapeutic Exercise Activity 2 BUE AROM (shld flex/ext, elbow flex/ext, hand director call center sales) 3 set of 10 Position 2 Seated Therapeutic Exercise Acitivity 3 Marching Position 3 Seated Therapeutic Exercise Activity 4 Breathing exercises, 3 set of 10 (IS, deep breathing) Position 4 Seated AM-PAC Daily Activity Inpatient Putting on and taking off regular lower body clothing 3 Bathing (including washing, rinsing, drying) 3 Toileting, which includes using toilet, bedpan or urinal 3 Putting on and taking off regular upper body clothing 3 Taking care of personal grooming such as brushing teeth 4 Eating Meals 4 AM-PAC Daily Activity Raw Score 20 OT Assessment OT Assessment Results Impaired ADL status;Impaired upper extremity strength;Impaired endurance;Impaired fine motor control;Impaired functional mobility;Impaired right upper extremity;Impaired left upper extremity Prognosis Good Barriers to Discharge Complicated medical history Evaluation/Treatment Tolerance Patient tolerated treatment well Medical Staff Made Aware Yes Strengths Ability to acquire knowledge OT Plan Treatment Plan/Goals Established with Patient/Caregiver Yes Treatment Interventions ADL retraining;Endurance training;Functional transfer training;UE strengthening/ROM OT Plan Skilled OT OT Frequency 3-5 times per week until discharge Equipment Recommended Shower bath chairOT - OK to Discharge Yes OT Planned Treatments Discharge OT Duration Discharge Mobility Highest Level of Mobility Performed (JH-HLM) 6 When therapist arrived pt sitting in the chair.>Pt provided extensive narrative related to her current performance vs deficits. >Pt is very motivated with her progress and hard work towards therapy goals. >Pt don extra gown CGA and socks mod I/setup. >She walk to restroom and perform toileting SBA. >Pt transition to sink for hand and oral hygiene. >Pt then sat for therapeutic exercises focus on BUE/BLE and breathing. Pt UIC, at end of session, all needs in reach, alarm intact. Education DocumentationNo documentation found. Education Comments No comments found. Encounter Goals Encounter Goals (Active) Patient will perform transfer to bathroom with SBA assist to decrease in caregiver burden and for improved independence. Start: 09/14/24 Expected End: 09/28/24 Patient will perform oral hygiene standing at the sink, with SBA assist for improved independence with ADLs Start: 09/14/24 Expected End: 09/28/24 Patient will perform upper body dressing with SBA assist to improve independence with dressing. Start: 09/14/24 Expected End: 09/28/24 Patient will perform lower body dressing with SBA assist to improve independence with dressing. Start: 09/14/24 Expected End: 09/28/24 Patient will tolerated 1--15 min standing functional task with no rest break and SBA assist to improve independence with ADLs Start: 09/14/24 Expected End: 09/28/24 Treatment Note: If this is the last documented treatment, then it will signify discharge from acute care prior to discharge from the therapy service and will serve as the discharge summary. Kimmie Chawla OT * Cisco Ruiz Jr., MD - 09/20/2024 9:44 AM CDT Images from the original note were not included. Cardiology Progress Note SUBJECTIVE: Pt seen and examinedNo acute changes. No chest pain, dyspnea, or palpitations. Objective VITALS:Visit Vitals BP (!) 128/59 (BP Location: Right arm, Patient Position: Lying) Pulse 78 Temp 36.5 ?C (97.7 ?F) Resp 18 Ht 1.651 m (5' 5") Wt 79.4 kg (175 lb 0.7 oz) SpO2 97% BMI 29.13 kg/m? OB Status Postmenopausal Smoking Status Never BSA 1.91 m? INTAKE/OUTPUT: Intake/Output Summary (Last 24 hours) at 09/20/2024 0944Last data filed at 09/20/2024 0600 Gross per 24 hour Intake 1990 ml Output 1650 ml Net 340 ml I/O last 3 completed shifts:In: 2464 (31 mL/kg) [P.O.:2464] Out: 2250 (28.3 mL/kg) [Urine:2250 (0.8 mL/kg/hr)] Weight: 79.4 kg PHYSICAL EXAM: General: Alert, cooperative, no distressHEENT: NC/AT, anicteric Cardiac: RRR Lungs: Decreased BS Abdomen: Soft, NT/ND Extremities: No edema Neuro: Non-focal MEDICATION:aspirin, 81 mg, Oral, Daily Boost Glucose Control, 1 Container, Oral, TID with meals carvedilol, 3.125 mg, Oral, BID with meals cefTRIAXone, 2 g, Intravenous, q24h clopidogrel, 75 mg, Oral, Daily doxycycline, 100 mg, Oral, q12h furosemide, 40 mg, Intravenous, Daily Glucerna Carbsteady, 1 Container, Oral, TID with meals guaiFENesin, 200 mg, Oral, TID heparin, 5,000 Units, Subcutaneous, q12h insulin glargine, 50 Units, Subcutaneous, q12h DANTE insulin lispro, 5 Units, Subcutaneous, TID with meals ipratropium-albuterol, 3 mL, Nebulization, q6h rosuvastatin, 20 mg, Oral, Daily LABS/IMAGING:Results from last 7 days Lab Units 09/20/24 0536 09/20/24 0444 09/19/24 0616 09/19/2441409/18/24 0629 09/18/24 0420 SODIUM mEq/L -- 140 -- 141 -- 141 POTASSIUM mEq/L -- 3.4 -- 3.6 -- 3.6 CHLORIDE mEq/L -- 103 -- 104 -- 102 CO2 mEq/L -- 28.1 -- 28.4 -- 29.8 BUN mg/dL -- 24* -- 22 -- 25* CREATININE mg/dL -- 0.84 -- 0.82 -- 0.88 GLUCOSE mg/dL -- 94 -- 116* -- 85 POC GLUCOSE mg/dL 86 -- < > -- < > -- CALCIUM mg/dL -- 9.5 -- 9.2 -- 9.6 MAGNESIUM mg/dL -- 1.92 -- 2.06 -- 1.99 < > = values in this interval not displayed. Results from last 7 daysLab Units 09/20/2444309/19/2441409/18/24 042 ALT U/L 16 17 23 AST U/L 53* 77* 101* ALBUMIN g/dL 2.9* 2.8* 3.0* ALK PHOS U/L 135* 152* 147* Results from last 7 daysLab Units 09/20/24 04409/19/24 0415 09/18/24 0420 09/15/24 0346 09/14/24 0524 WBC 10*3/uL 11.97* 13.32* 14.07* < > 17.43* HEMOGLOBIN g/dL 9.4* 9.8* 10.4* < > 10.2* HEMATOCRIT % 30.8* 32.0* 34.2 < > 32.6* PLATELETS 10*3/uL 236 243 250 < > 220 PLATELETS ESTIMATED Normal Normal -- -- -- INR -- -- -- -- 1.48* < > = values in this interval not displayed. No lab exists for component: "TROPTHS", "PROBNPNTERM" ECHOCARDIOGRAM:No results found for this or any previous visit. EKG:Results for orders placed or performed during the hospital encounter of 09/14/24 ECG 12 lead Collection Time: 09/14/24 2:49 AM Result Value Ref Range Ventricular Rate 101 BPM Atrial Rate 101 BPM AR Interval 138 ms QRS Duration 92 ms QT/QTc 360 ms QTc Calculation 466 ms P-Speedwell 87 degrees R-Speedwell 21 degrees T-Speedwell 130 degrees Patient Active Problem ListDiagnosis 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 Diabetes mellitus, type 2 (HCC) Primary hypertension Ischemic cardiomyopathy Acute blood loss anemia (ABLA) Macular degeneration Cardiogenic shock (HCC) Acute post-operative pain Superficial vein thrombosis Open-angle glaucoma Constipation Hypokalemia Glaucoma Bilateral ocular hypertension Acute on chronic systolic (congestive) heart failure (HCC) S/P CABG x 4 Cataract 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 (CMS/HCC) ([facility]) Diabetic macular edema ([facility]) History of vitrectomy Primary open angle glaucoma of both eyes Proliferative diabetic retinopathy (HCC) Shortness of breath Flu vaccine need Need for pneumococcal vaccine Screening-pulmonary TB Insomnia Acute non-ST elevation myocardial infarction (NSTEMI) (CMS/HCC) ([facility]) UTI (urinary tract infection) Sepsis ([facility]) EDUARDA (acute kidney injury) ([facility]) Hyperbilirubinemia Gram negative sepsis ([facility]/HCC) ([facility]) ASSESSMENT & PLAN: 1. CAD s.p CABG/ Elevated Troponin- Pt denies CP - 12-lead EKG no acute changes - Troponin elevation due to demand and very recent CABG in the setting of volume overload and UTI/sepsis 2. Urosepsis- + BC's - on abx - ID following 3.Elevated BNP- EF 40-45% with grade 2 DD - BNP: 1061 - change Lasix 40 to daily - Strict I/O and daily weights 4. HTN- Stable 5. HLD- on statin Cisco Ruiz Jr., MDInterventional Teacher K[employer] [facility] * Cisco Ruiz Jr., MD - 09/19/2024 4:30 PM CDT Images from the original note were not included. Cardiology Progress Note SUBJECTIVE: No acute changes.No chest pain, dyspnea, or palpitations. Objective VITALS:Visit Vitals BP (!) 124/56 Pulse 72 Temp 37.1 ?C (98.7 ?F) Resp 18 Ht 1.651 m (5' 5") Wt 81 kg (178 lb 9.2 oz) SpO2 98% BMI 29.72 kg/m? OB Status Postmenopausal Smoking Status Never BSA 1.93 m? INTAKE/OUTPUT: Intake/Output Summary (Last 24 hours) at 09/19/2024 1630Last data filed at 09/19/2024 0948 Gross per 24 hour Intake 714 ml Output 1100 ml Net -386 ml I/O last 3 completed shifts:In: 1024 (12.6 mL/kg) [P.O.:1024] Out: 1200 (14.8 mL/kg) [Urine:1200 (0.4 mL/kg/hr)] Weight: 81 kg PHYSICAL EXAM: General: Alert, cooperative, no distressHEENT: NC/AT, anicteric Cardiac: RRR Lungs: Decesed BS Abdomen: Soft, NT/ND Extremities: No edema Neuro: Non-focal MEDICATION:aspirin, 81 mg, Oral, Daily Boost Glucose Control, 1 Container, Oral, TID with meals budesonide, 0.5 mg, Nebulization, BID carvedilol, 3.125 mg, Oral, BID with meals cefTRIAXone, 2 g, Intravenous, q24h clopidogrel, 75 mg, Oral, Daily doxycycline, 100 mg, Oral, q12h furosemide, 40 mg, Intravenous, Daily Glucerna Carbsteady, 1 Container, Oral, TID with meals guaiFENesin, 200 mg, Oral, TID heparin, 5,000 Units, Subcutaneous, q12h insulin glargine, 50 Units, Subcutaneous, q12h DANTE insulin lispro, 6 Units, Subcutaneous, TID with meals ipratropium-albuterol, 3 mL, Nebulization, q6h rosuvastatin, 20 mg, Oral, Daily LABS/IMAGING:Results from last 7 days Lab Units 09/19/24 1543 09/19/24 0616 03/24/41409/18/24 0629 09/18/2441909/17/24 0640 09/17/24 0351 SODIUM mEq/L -- -- 141 -- 141 -- 140 POTASSIUM mEq/L -- -- 3.6 -- 3.6 -- 3.6 CHLORIDE mEq/L -- -- 104 -- 102 -- 102 CO2 mEq/L -- -- 28.4 -- 29.8 -- 28.0 BUN mg/dL -- -- 22 -- 25* -- 29* CREATININE mg/dL -- -- 0.82 -- 0.88 -- 0.97 GLUCOSE mg/dL -- -- 116* -- 85 -- 86 POC GLUCOSE mg/dL 272* < > -- < > -- < > -- CALCIUM mg/dL -- -- 9.2 -- 9.6 -- 9.4 MAGNESIUM mg/dL -- -- 2.06 -- 1.99 -- 2.07 < > = values in this interval not displayed. Results from last 7 daysLab Units 09/19/2441409/18/2441909/17/24350 ALT U/L 17 33 AST U/L 77* 101* 167* ALBUMIN g/dL 2.8* 3.0* 2.9* ALK PHOS U/L 152* 147* 143* Results from last 7 daysLab Units 09/19/2441409/18/2441909/17/2435009/15/24 0346 09/14/24 0524 WBC 10*3/uL 13.32* 14.07* 12.68* < > 17.43* HEMOGLOBIN g/dL 9.8* 10.4* 9.7* < > 10.2* HEMATOCRIT % 32.0* 34.2 32.1* < > 32.6* PLATELETS 10*3/uL 243 250 227 < > 220 PLATELETS ESTIMATED Normal -- -- -- -- INR -- -- -- -- 1.48* < > = values in this interval not displayed. No lab exists for component: "TROPTHS", "PROBNPNTERM" ECHOCARDIOGRAM:No results found for this or any previous visit. EKG:Results for orders placed or performed during the hospital encounter of 09/14/24 ECG 12 lead Collection Time: 09/14/24 2:49 AM Result Value Ref Range Ventricular Rate 101 BPM Atrial Rate 101 BPM AR Interval 138 ms QRS Duration 92 ms QT/QTc 360 ms QTc Calculation 466 ms P-[place]well 87 degrees R-Speedwell 21 degrees T-Speedwell 130 degrees Patient Active Problem ListDiagnosis 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 Diabetes mellitus, type 2 (HCC) Primary hypertension Ischemic cardiomyopathy Acute blood loss anemia (ABLA) Macular degeneration Cardiogenic shock (HCC) Acute post-operative pain Superficial vein thrombosis Open-angle glaucoma Constipation Hypokalemia Glaucoma Bilateral ocular hypertension Acute on chronic systolic (congestive) heart failure (HCC) S/P CABG x 4 Cataract 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 CAD s.p CABG/ Elevated Troponin- Pt denies CP - 12-lead EKG no acute changes - Troponin elevation due to demand and very recent CABG in the setting of volume overload and UTI/sepsis 2. Urosepsis- + BC's - on abx - ID following 3.Elevated BNP- EF 40-45% with grade 2 DD - BNP: 1061 - change Lasix 40 to daily - Strict I/O and daily weights 4. HTN- Stable 5. HLD- on statin Cisco Ruiz Jr., MD Commercial Real Estate Sales Manager [facility] * Beth Cisneros, PT - 09/19/2024 3:16 PM CDT Physical Therapy Treatment Patient Name: Deepthi Moore Today’s Date: 09/19/24 Room Number: [id number]/[id number].CVIMU* Patient's Preferred Language: [place] PT Assessment and Plan: Assessment Patient is progressing with distance ambulated but is having some difficulty maintaining her balance while amb. No SOB noted, fatigue appears to be the limiting factor for amb. Prognosis: Good Medical Staff Made Aware: Yes Plan (Last filed value by PT) Treatment Plan/Goals Established with Patient/Caregiver: Yes Treatment/Interventions: Bed mobility training, Functional activities, Gait training, Transfer training, Therapeutic exercises, Patient education PT Plan: Skilled PT PT Frequency: 3-4 times per week until discharge Equipment Recommended: (None at this time for amb) PT Recommended Transfer Status: Independent AM-PAC Basic Mobility Turning in bed without bedrails: None Lying on back to sitting on edge of flat bed: None Bed to chair: A Little Standing up from chair: None Walk in room: A Little Climbing 3-5 stairs: A Little Mobility Inpatient Raw Score: 21 -HLM Goal: 6 [facility] Highest Level of Mobility (JH-HLM) Scale Highest Level of Mobility Performed (JH-HLM): Walked 250 feet or more (i.e. several laps on unit) Subjective: Patient agreed to work with PT Current Problem: This is a 68 y.o. female who is admitted to [facility] with Pericardial effusion [I31.39] Abnormal EKG [R94.31] Acute febrile illness [R50.9] Acute non-ST elevation myocardial infarction (NSTEMI) (CMS/HCC) ([facility]) [I21.4]; recent CABG Pain: Pain Assessment Pain Assessment: DVPRS Pain Score: 0 Pain Rating Scale (DVPRS): No pain Objective: Precautions: LE Weight Bearing Status: FWB Medical Precautions: [place] Post-Surgical Precautions: Sternal Precautions Isolation Status: Contact Activity Tolerance: Early Mobility/Exercise Safety Screen: Proceed with mobilization - No exclusion criteria met Cognition: Overall Cognitive Status: Within Functional Limits Behavior/Cognition: Alert, Cooperative, Pleasant mood Orientation Level: Oriented X4 Treatments: Therapeutic Activity Time Entry: 8 Therapeutic Activity 1: Patient resting in recliner, stood at supervision level to initiate amb. Unsteadiness noted and patient holding on to wall at one point for support but declined using RW. Post amb assisted back to recliner, patient sat without supporting herself into recliner causing her to sit in an uncontrolled manner. She was reminded to use her hands to reach for seat of recliner as she initiates sitting so that she has control of sitting. Bed Mobility: Bed Mobility Bed Mobility: No Transfers: Transfers Transfer: Yes Gait Training: Gait Training Time Entry: 15 Gait Training Activity 1 Distance (enter in feet): ~500 feet Gait Training Activity 1: Indoor surface Assistive Devices And Adaptive Equipments: No device Level of Assistance 1: Partial/Mod assistance (CGA due to loss of balance) Gait Training Activity 1 Comment: Patient stated she felt confident without using any device to walk. She was CGA for amb as she had balance losses sporadically throughout amb. She did sit twice in WC due to fatigue and loss of balance. Otherwise, step-through gait noted with periods of wide REAGAN noted. Outcome Measures: 09/19/24 1146 Lulu RPE Scale Lulu RPE Scale - How Strenuous and Tiring The Work Feels 13 - Somewhat hard Patient Education Education Documentation Mobility, taught by Beth Cisneros PT at 09/19/2024 3:15 PM. Learner: Patient Readiness: Eager Method: Explanation Response: Verbalizes Understanding Education Comments No comments found. Goal Encounter Goals Encounter Goals (Active) Patient will perform upper body dressing with SBA assist to improve independence with dressing. Start: 09/14/24 Expected End: 09/28/24 Patient will ambulate >400 feet distance using no device with no assistance Independent (Progressing) Start: 09/14/24 Expected End: 10/12/24 Patient will ascend and descend 4-6 steps with rail no assistance Mod I (Progressing) Start: 09/14/24 Expected End: 10/12/24 Patient will perform supine to sit on bed/sit to supine with no assistance demonstrating control Independent (Progressing) Start: 09/14/24 Expected End: 10/12/24 Encounter Goals (Resolved) Patient will perform chair to and from bed transfer with no assistance Independent (Completed) Start: 09/14/24 Expected End: 10/12/24 Resolved: 09/16/24 Post Therapy Checklist - in chair, call gonzalez within reach, and bed/chair alarm in place Time Calculation:Start Time: 1146 Stop Time: 1210 Time Calculation (min): 24 min PT Recreation Leader Used: N.A. Treatment Note: If this is the last documented treatment, then it will signify discharge from acute care prior to discharge from the therapy service and will serve as the discharge summary. Beth Cisneros PT * Franklin Wetzel MD - 09/18/2024 3:57 PM CDT [facility] Progress Note Subjective Patient Seen and examined this morning. Met siting on a chair. Pt with non productive cough intermittently induce with speech, coughing by splinting chest with soft pillow. Denied n/v. Reported sob, pain at surgical site but tolerable. Pt S/p CABG. Incision site clean and dry, well approximated. No covering. Objective Last Recorded Vitals Blood pressure (!) 115/55, pulse 86, temperature 37.1 ?C (98.7 ?F), resp. rate 18, height 1.651 m (5' 5"), weight 79.7 kg (175 lb 11.3 oz), SpO2 97%. Physical Exam General Appearance: resting comfortably in chair,no acute distress HEENT: no scleral icterus, oral mucosa moist Chest Wall: no retractions Lungs: Lung bases with maranda diminished breath sounds Heart: Regular rate and rhythm Abdomen: soft,non tender, obese Extremeties: Maranda lower ext pitting edema; +2 right leg and +1 on left leg Skin: CABG incision healing well Right lower extremity harvest incision site looks well without infection. Neurologic: Alert ,awake and oriented x 3.clear grossly nonfocal, moving all extremities equally to antigravity Psych- Mood and affect normal Results from last 7 days Lab Units 09/18/24 0420 09/17/24 0351 09/16/24 0440 WBC 10*3/uL 14.07* 12.68* 12.33* HEMOGLOBIN g/dL 10.4* 9.7* 9.7* HEMATOCRIT % 34.2 32.1* 31.1* PLATELETS 10*3/uL 250 227 203 Results from last 7 days Lab Units 09/18/24 1124 09/18/24 0629 09/18/24 0420 09/17/24 0640 09/17/24 0351 09/16/24 0951 09/16/24 0440 SODIUM mEq/L -- -- 141 -- 140 -- 141 POTASSIUM mEq/L -- -- 3.6 -- 3.6 -- 3.4 CHLORIDE mEq/L -- -- 102 -- 102 -- 104 CO2 mEq/L -- -- 29.8 -- 28.0 -- 27.9 BUN mg/dL -- -- 25* -- 29* -- 26* CREATININE mg/dL -- -- 0.88 -- 0.97 -- 0.92 GLUCOSE mg/dL -- -- 85 -- 86 -- 121* POC GLUCOSE mg/dL 197* < > -- < > -- < > -- CALCIUM mg/dL -- -- 9.6 -- 9.4 -- 9.3 < > = values in this interval not displayed. === 09/14/24 === CT ANGIOGRAM CHEST PULMONARY EMBOLISM - Impression - No evidence of pulmonary embolism. Trace left pleural effusion and dense atelectasis, improved from 09/04/2024. Stable mild cardiomegaly and small pericardial effusion including fluid in the superior pericardial recess. Electronically signed by: Ksenia Morales MD 09/14/2024 03:51 AM [facility] === 09/14/24 === XR CHEST 1 VIEW - Impression - Impression: Stable chest/no change. Electronically signed by: Johnathon Latif MD 09/14/2024 03:06 AM [facility] aspirin, 81 mg, Oral, Daily Boost Glucose Control, 1 Container, Oral, TID with meals budesonide, 0.5 mg, Nebulization, BID carvedilol, 3.125 mg, Oral, BID with meals cefTRIAXone, 2 g, Intravenous, q24h clopidogrel, 75 mg, Oral, Daily doxycycline, 100 mg, Oral, BID furosemide, 40 mg, Intravenous, Daily Glucerna Carbsteady, 1 Container, Oral, TID with meals guaiFENesin, 200 mg, Oral, TID heparin, 5,000 Units, Subcutaneous, q12h insulin glargine, 50 Units, Subcutaneous, q12h DANTE insulin lispro, 6 Units, Subcutaneous, TID with meals ipratropium-albuterol, 3 mL, Nebulization, q6h rosuvastatin, 20 mg, Oral, Daily PRN medications: acetaminophen OR acetaminophen OR acetaminophen, dextrose, dextrose, glucagon, guaiFENesin, insulin lispro, ipratropium-albuterol Assessment & Plan Sepsis ([facility]) Low grade fever 99.6 Likely secondary to UTI Urine/bld cxs +ve for E. Coli ID on board Pt currently on abx UTI (urinary tract infection) E.coli uti, with bacteremia Urine/bld cxs +ve for E. Coli Continue abx ID on board 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 S/P CABG x 4 S/p CABG 08/26 Pt was on heparin drip initiallyElevated Troponin suspected secondary to demand ischemia with underlying CHF exacerbation-ongoing sepsis. Continue aspirin, Plavix statin Cardiology on following Diabetes mellitus, type 2 (HCC) Lantus insulin with insulin sliding scale Blood sugars not in ideal range at present Ischemic cardiomyopathy EF 40 to 45%, grade 2 diastolic dysfunction of the left ventricle. On coreg/Lasix Acute on chronic systolic (congestive) heart failure (HCC) Gram negative sepsis (CMS/HCC) ([facility]) Shortness of breath secondary to volume overload Continue IV diuretics as BP tolerable Chest x-ray showed small pericardial effusion Continue GDMT with Coreg Hold Farxiga due to UTI EDUARDA (acute kidney injury) ([facility]) Renal function test stable, will continue to monitor Hyperbilirubinemia Continue statin Cxr done no pleural effusion DVT prophylaxis: heparin subcu, was on IV heparin on admission For possible pneumonia versus atelectasis left lower lobe patient still having some on and off cough we will change her nebulizers to scheduled And also change antibiotic from cefazolin to Rocephin and add doxycycline to cover for pneumonia and follow-up will have infectious disease to follow-up Current Diet: Adult Diet Regular; No concentrated sweets Disposition: [facility] Franklin Wetzel MD 09/18/2024 * Teresa Donaldson MD - 09/18/2024 2:54 PM CDT Subjective She is having clear productive sputum cough for the past couple of days. She is on room air. She has no burning with urination. She is out of bed to chair. Objective Last Recorded Vitals Blood pressure 127/63, pulse 84, temperature 37.3 ?C (99.1 ?F), resp. rate 19, height 1.651 m (5' 5"), weight 79.7 kg (175 lb 11.3 oz), SpO2 98%. Physical Exam:Vitals reviewed. Constitutional: Appearance: Normal appearance. She is well-developed. HENT: Head: Normocephalic and atraumatic. Right Ear: External ear normal. Left Ear: External ear normal. Nose: Nose normal. Eyes: Extraocular Movements: Extraocular movements intact. Conjunctiva/sclera: Conjunctivae normal. Pupils: Pupils are equal, round, and reactive to light. Neck: Comments: No obvious masses or lesions Cardiovascular: Rate and Rhythm: Normal rate and regular rhythm. Comments: Incision C/D/I Pulmonary: Effort: Pulmonary effort is normal. Breath sounds: Normal breath sounds. Comments: Normal work of breathing, no obvious distress Musculoskeletal: Comments: Right leg: +1 pitting edema Skin: General: Skin is warm and dry. Comments: No obvious lesions, rashes or masses Neurological: Mental Status: She is alert. Comments: oriented Psychiatric: Behavior: Behavior is cooperative. Assessment & PlanAcute non-ST elevation myocardial infarction (NSTEMI) ([facility]) ([facility]) 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 Diabetes mellitus, type 2 ([facility]) Ischemic cardiomyopathy Acute on chronic systolic (congestive) heart failure ([facility]) S/P CABG x 4 UTI (urinary tract infection) Sepsis ([facility]) EDUARDA (acute kidney injury) ([facility]) Hyperbilirubinemia Gram negative sepsis ([facility]) ([facility]) 68 year old female s/p CABG now with urosepsis-CXR to evaluate for effusion/infiltrate -WBC uptrending, but afebrile; urine culture E. Coli; continue antibiotics -Continue aspirin, plavix and statin -Continue diuresis -OOB/PT Current Diet: Adult Diet Regular; No concentrated sweets * Franklin Wetzel MD - 09/17/2024 12:10 PM CDT [facility] Progress Note Subjective Patient Seen and examined this morning. Met siting on a chair. Pt with non productive cough intermittently induce with speech, coughing by splinting chest with soft pillow. Denied n/v. Reported sob, pain at surgical site but tolerable. Pt S/p CABG. Incision site clean and dry, well approximated. No covering. Objective Last Recorded Vitals Blood pressure 123/67, pulse 80, temperature 36.9 ?C (98.5 ?F), resp. rate 19, height 1.651 m (5' 5"), weight 79.3 kg (174 lb 13.2 oz), SpO2 99%. Physical Exam General Appearance: resting comfortably in chair,no acute distress HEENT: no scleral icterus, oral mucosa moist Chest Wall: no retractions Lungs: Lung bases with maranda diminished breath sounds Heart: Regular rate and rhythm Abdomen: soft,non tender, obese Extremeties: Maranda lower ext pitting edema; +2 right leg and +1 on left leg Skin: CABG incision healing well Right lower extremity harvest incision site looks well without infection. Neurologic: Alert ,awake and oriented x 3.clear grossly nonfocal, moving all extremities equally to antigravity Psych- Mood and affect normal Results from last 7 days Lab Units 09/17/24 0351 09/16/24 0440 09/15/24 0346 WBC 10*3/uL 12.68* 12.33* 13.59* HEMOGLOBIN g/dL 9.7* 9.7* 10.0* HEMATOCRIT % 32.1* 31.1* 32.2* PLATELETS 10*3/uL 227 203 190* Results from last 7 days Lab Units 09/17/24 1138 09/17/24 0640 09/17/24 0351 09/16/24 0951 09/16/24 0440 09/15/24 0629 09/15/24 0346 SODIUM mEq/L -- -- 140 -- 141 -- 136 POTASSIUM mEq/L -- -- 3.6 -- 3.4 -- 3.8 CHLORIDE mEq/L -- -- 102 -- 104 -- 101 CO2 mEq/L -- -- 28.0 -- 27.9 -- 22.4 BUN mg/dL -- -- 29* -- 26* -- 29* CREATININE mg/dL -- -- 0.97 -- 0.92 -- 1.05* GLUCOSE mg/dL -- -- 86 -- 121* -- 207* POC GLUCOSE mg/dL 259* < > -- < > -- < > -- CALCIUM mg/dL -- -- 9.4 -- 9.3 -- 9.0 < > = values in this interval not displayed. === 09/14/24 === CT ANGIOGRAM CHEST PULMONARY EMBOLISM - Impression - No evidence of pulmonary embolism. Trace left pleural effusion and dense atelectasis, improved from 09/04/2024. Stable mild cardiomegaly and small pericardial effusion including fluid in the superior pericardial recess. Electronically signed by: Ksenia Morales MD 09/14/2024 03:51 AM CDT RP === 09/14/24 === XR CHEST 1 VIEW - Impression - Impression: Stable chest/no change. Electronically signed by: Johnathon Latif MD 09/14/2024 03:06 AM CDT RP aspirin, 81 mg, Oral, Daily Boost Glucose Control, 1 Container, Oral, TID with meals carvedilol, 3.125 mg, Oral, BID with meals ceFAZolin, 2 g, Intravenous, q8h clopidogrel, 75 mg, Oral, Daily furosemide, 40 mg, Intravenous, Daily Glucerna Carbsteady, 1 Container, Oral, TID with meals heparin, 5,000 Units, Subcutaneous, q12h insulin glargine, 50 Units, Subcutaneous, q12h DANTE insulin lispro, 6 Units, Subcutaneous, TID with meals rosuvastatin, 20 mg, Oral, Daily PRN medications: acetaminophen OR acetaminophen OR acetaminophen, dextrose, dextrose, dextrose, dextrose, glucagon, guaiFENesin, insulin lispro Assessment & Plan Sepsis ([facility]) Low grade fever 99.6 Likely secondary to UTI Urine/bld cxs +ve for E. Coli ID on board Pt currently on abx UTI (urinary tract infection) E.coli uti, with bacteremia Urine/bld cxs +ve for E. Coli Continue abx ID on board 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 S/P CABG x 4 S/p CABG 08/26 Pt was on heparin drip initiallyElevated Troponin suspected secondary to demand ischemia with underlying CHF exacerbation-ongoing sepsis. Continue aspirin, Plavix statin Cardiology on following Diabetes mellitus, type 2 (HCC) Lantus insulin with insulin sliding scale Blood sugars not in ideal range at present Ischemic cardiomyopathy EF 40 to 45%, grade 2 diastolic dysfunction of the left ventricle. On coreg/Lasix Acute on chronic systolic (congestive) heart failure (HCC) Gram negative sepsis (CMS/HCC) (HCC) Shortness of breath secondary to volume overload Continue IV diuretics as BP tolerable Chest x-ray showed small pericardial effusion Continue GDMT with Coreg Hold Farxiga due to UTI EDUARDA (acute kidney injury) (HCC) Renal function test stable, will continue to monitor Hyperbilirubinemia Continue statin Cxr done no pleural effusion DVT prophylaxis: heparin subcu, was on IV heparin on admission Current Diet: Adult Diet Regular; No concentrated sweets Disposition: inpatient, [facility] Franklin Wetzel MD 09/17/2024 * Beth Cisneros, PT - 09/16/2024 3:53 PM CDT Physical Therapy Treatment Patient Name: Deepthi Moore Today’s Date: 09/16/24 Room Number: [id number]* Patient's Preferred Language: [place]ican PT Assessment and Plan: Assessment Patient with increase in gait stability and endurance since last session. She is still limited with amb due to fatigue. No SOB noted. Prognosis: Good Medical Staff Made Aware: Yes Plan (Last filed value by PT) Treatment Plan/Goals Established with Patient/Caregiver: Yes Treatment/Interventions: Bed mobility training, Functional activities, Gait training, Transfer training, Therapeutic exercises, Patient education PT Plan: Skilled PT PT Frequency: 3-4 times per week until discharge Equipment Recommended: (None at this time for amb) PT Recommended Transfer Status: Independent AM-PAC Basic Mobility Turning in bed without bedrails: None Lying on back to sitting on edge of flat bed: A Little Bed to chair: None Standing up from chair: None Walk in room: None Climbing 3-5 stairs: A Little Mobility Inpatient Raw Score: 22 -HLM Goal: 7 [facility] Highest Level of Mobility (JH-HLM) Scale Highest Level of Mobility Performed (JH-HLM): Walked 250 feet or more (i.e. several laps on unit) Subjective: Patient agreed to work with PT Current Problem: This is a 68 y.o. female who is [facility] with Pericardial effusion [I31.39] Abnormal EKG [R94.31] Acute febrile illness [R50.9] Acute non-ST elevation myocardial infarction (NSTEMI) (CMS/HCC) (HCC) [I21.4] Pain: Pain Assessment Pain Assessment: DVPRS Pain Score: 0 Pain Rating Scale (DVPRS): No pain Objective: Precautions: LE Weight Bearing Status: FWB Isolation Status: Contact Activity Tolerance: Early Mobility/Exercise Safety Screen: Proceed with mobilization - No exclusion criteria met Cognition: Overall Cognitive Status: Within Functional Limits Behavior/Cognition: Alert, Cooperative, Pleasant mood Orientation Level: Oriented X4 Treatments: Therapeutic Activity Time Entry: 10 Therapeutic Activity 1: Patient sitting in recliner, she stood independently and proceeded to amb toward cade. Post amb assisted to recliner in room with all needs in place, patient positioned to comfort. Sternal precautions maintained. Bed Mobility: Bed Mobility Bed Mobility: No Transfers: Transfers Transfer: Yes Gait Training: Gait Training Time Entry: 13 Gait Training Activity 1 Distance (enter in feet): ~250 feet Gait Training Activity 1: Indoor surface Assistive Devices And Adaptive Equipments: No device Level of Assistance 1: Supervision/touching assistance (Supervision for balance, increased fatigue. No loss of balance noted. Patient needed an extended sit break due to fatigue and asked to be wheeled partially back to room and to finish amb rest of way.) Outcome Measures: 09/16/24 1350 Lulu RPE Scale Lulu RPE Scale - How Strenuous and Tiring The Work Feels 14 Patient Education Education Documentation Precautions, taught by Beth Cisneros PT at 09/16/2024 3:52 PM. Learner: Patient Readiness: Eager Method: Explanation Response: Verbalizes Understanding Education Comments No comments found. Goal Encounter Goals Encounter Goals (Active) Patient will perform upper body dressing with SBA assist to improve independence with dressing. Start: 09/14/24 Expected End: 09/28/24 Patient will ambulate >400 feet distance using no device with no assistance Independent (Progressing) Start: 09/14/24 Expected End: 10/12/24 Patient will ascend and descend 4-6 steps with rail no assistance Mod I (Progressing) Start: 09/14/24 Expected End: 10/12/24 Patient will perform supine to sit on bed/sit to supine with no assistance demonstrating control Independent (Progressing) Start: 09/14/24 Expected End: 10/12/24 Encounter Goals (Resolved) Patient will perform chair to and from bed transfer with no assistance Independent (Completed) Start: 09/14/24 Expected End: 10/12/24 Resolved: 09/16/24 Post Therapy Checklist - in chair, call gonzalez within reach, and bed/chair alarm in place Time Calculation:Start Time: 1350 Stop Time: 1414 Time Calculation (min): 24 min Treatment Note: If this is the last documented treatment, then it will signify discharge from acute care prior to discharge from the therapy service and will serve as the discharge summary. Beth Cisneros PT * Sury Griffith - 09/16/2024 11:00 AM CDT Buddhist Volunteer Visit Fernando Li visited, prayed, and gave the patient Communion * Bibiana Narayan NP - 09/16/2024 8:58 AM CDT Images from the original note were not included. Cardiology Progress Note SUBJECTIVE: Pt seen and examined. She feels much better, less SOB.No acute changes. No chest pain, dyspnea, or palpitations. Objective VITALS:Visit Vitals BP 157/70 Pulse 82 Temp 36.9 ?C (98.4 ?F) Resp 18 Ht 1.651 m (5' 5") Wt 62.5 kg (137 lb 12.6 oz) SpO2 100% BMI 22.93 kg/m? OB Status Postmenopausal Smoking Status Never BSA 1.69 m? INTAKE/OUTPUT: Intake/Output Summary (Last 24 hours) at 09/16/2024 0858Last data filed at 09/16/2024 0500 Gross per 24 hour Intake 350 ml Output 1350 ml Net -1000 ml I/O last 3 completed shifts:In: 650 (10.4 mL/kg) [P.O.:650] Out: 1750 (28 mL/kg) [Urine:1750 (0.8 mL/kg/hr)] Weight: 62.5 kg PHYSICAL EXAM: General: Alert, cooperative, no distressHEENT: NC/AT, anicteric Cardiac: RRR Lungs: Decreased BS Abdomen: Soft, NT/ND Extremities: No edema Neuro: Non-focal MEDICATION:aspirin, 81 mg, Oral, Daily Boost Glucose Control, 1 Container, Oral, TID with meals carvedilol, 3.125 mg, Oral, BID with meals ceFAZolin, 2 g, Intravenous, q8h clopidogrel, 75 mg, Oral, Daily furosemide, 40 mg, Intravenous, BID heparin, 5,000 Units, Subcutaneous, q12h insulin glargine, 50 Units, Subcutaneous, q12h DANTE rosuvastatin, 20 mg, Oral, Daily LABS/IMAGING:Results from last 7 days Lab Units 09/16/24 04409/15/24 0629 09/15/24 0346 09/14/24 1222 09/14/24 0258 SODIUM mEq/L 141 -- 136 -- 133* POTASSIUM mEq/L 3.4 -- 3.8 -- 3.9 CHLORIDE mEq/L 104 -- 101 -- 98 CO2 mEq/L 27.9 -- 22.4 -- 22.5 BUN mg/dL 26* -- 29* -- 26* CREATININE mg/dL 0.92 -- 1.05* -- 1.16* GLUCOSE mg/dL 121* -- 207* -- 225* POC GLUCOSE -- < > -- < > -- CALCIUM mg/dL 9.3 -- 9.0 -- 9.5 MAGNESIUM mg/dL 2.09 -- 1.97 < > -- < > = values in this interval not displayed. Results from last 7 daysLab Units 09/16/24 04409/15/24 0346 09/14/24 0258 ALT U/L 16 <7* 9 AST U/L 64* 33 41* ALBUMIN g/dL 2.8* 3.1* 3.7 ALK PHOS U/L 159* 129* 148* Results from last 7 daysLab Units 09/16/24 0440 09/15/24 0346 09/14/24 0524 WBC 10*3/uL 12.33* 13.59* 17.43* HEMOGLOBIN g/dL 9.7* 10.0* 10.2* HEMATOCRIT % 31.1* 32.2* 32.6* PLATELETS 10*3/uL 203 190* 220 INR -- -- 1.48* CT of the chest reveals no evidence of pulmonary embolism, but trace leftpleural effusion, small pericardial effusion. Her urine culture is growing gram-negative rods, as well as blood cultures ECHOCARDIOGRAM:No results found for this or any previous visit. EKG:Results for orders placed or performed during the hospital encounter of 09/14/24 ECG 12 lead Collection Time: 09/14/24 2:49 AM Result Value Ref Range Ventricular Rate 101 BPM Atrial Rate 101 BPM AR Interval 138 ms QRS Duration 92 ms QT/QTc 360 ms QTc Calculation 466 ms P-[place] 87 degrees R-[place] 21 degrees T-[place] 130 degrees Problem List[1] ASSESSMENT & PLAN: 1. CAD s.p CABG/ Elevated Troponin- Pt denies CP - 12-lead EKG no acute changes - Troponin elevation due to demand and very recent CABG in the setting of volume overload and UTI/sepsis 2. Urosepsis- + BC's - on abx - ID consulted 3.Elevated BNP- EF 40-45% with grade 2 DD - BNP: 1061 - change Lasix 40 to daily - Strict I/O and daily weights 4. HTN- Stable 5. HLD- on statin Plan to refer to Dr. 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 Pt on abx for urosepsis. ID following * Kimmie Ventura Cammy, OT - 09/16/2024 7:32 AM CDT Occupational Therapy Treatment Deepthi Moore [address] [facility] Assessment: Pt cont to demo steady daily progress towards OT goals. However, she cont to demo decrease activity tolerance and functional strength impacting ehr endurance. She needs energy conservation techniques during morning ADL's routine. Pt will cont to benefit from OT skilled services while in the hospital. OT Assessment Results: Impaired ADL status, Impaired endurance Prognosis: Good Barriers to Discharge: Complicated medical history Evaluation/Treatment Tolerance: Patient tolerated treatment well Medical Staff Made Aware: Yes Strengths: Ability to acquire knowledge Plan: Treatment Plan/Goals Established with Patient/Caregiver: Yes Treatment Interventions: ADL retraining, Endurance training, Functional transfer training, Other (Comment) OT Planned Treatments: Discharge OT Plan: Skilled OT OT Frequency: 2-3 times per week until discharge Equipment Recommended: Shower bath chair OT - OK to Discharge: Yes AM-PAC Daily Activity: Putting on and taking off regular lower body clothing: A Little Bathing (including washing, rinsing, drying): A Little Toileting, which includes using toilet, bedpan or urinal: A Little Putting on and taking off regular upper body clothing: A Little Taking care of personal grooming such as brushing teeth: None Eating Meals: None AM-PAC Daily Activity Raw Score: 20 [facility] Highest Level of Mobility (-HLM) Scale Highest Level of Mobility Performed (-HLM): Walked 10 steps or more (i.e. walked to restroom) Preferred Language: [place]ican Subjective Pt agreeable Treatment: 09/16/24 0732OT Last Visit OT Received On 09/16/24 Time Calculation Start Time 0732 Stop Time 0803 Time Calculation (min) 31 min Precautions UE Weight Bearing Status FWB LE Weight Bearing Status FWB Medical Precautions [place] Post-Surgical Precautions Sternal Precautions Pain Assessment Pain Assessment DVPRS Pain Score 0 Pain Rating Scale (DVPRS) 0 ADL Self Care/Home Management (ADLs) Time Entry 31 Eating Assistance Independent Grooming Assistance Independent Bathing Assistance Supervision/touching assistance UE Dressing Assistance Supervision/touching assistance LE Dressing Assistance Supervision/touching assistance Toileting Assistance Supervision/touching assistance Bed Mobility Bed Mobility No Transfers Transfer Yes Transfer 1 Technique 1 Via walking Level of Assistance 1 Supervision/touching assistance Transfer To/From Chair Transfers 2 Technique 2 Via walking Level of Assistance 2 Supervision/touching assistance Transfer To/From Other (specify) (Sink) Toilet Transfers Toilet Transfer To/From Toilet Transfer Type Via walking Level of Assistance Supervision/touching assistance Activity Tolerance Endurance Tolerates 10 - 20 min exercise with multiple rests Sitting Balance Moves/returns truncal midpoint 1-2 inches in multiple planes Early Mobility/Exercise Safety Screen Proceed with mobilization - No exclusion criteria met AM-[facility] Daily Activity Inpatient Putting on and taking off regular lower body clothing 3 Bathing (including washing, rinsing, drying) 3 Toileting, which includes using toilet, bedpan or urinal 3 Putting on and taking off regular upper body clothing 3 Taking care of personal grooming such as brushing teeth 4 Eating Meals 4 AM-[facility] Daily Activity Raw Score 20 OT Assessment OT Assessment Results Impaired ADL status;Impaired endurance Prognosis Good Barriers to Discharge Complicated medical history Evaluation/Treatment Tolerance Patient tolerated treatment well Medical Staff Made Aware Yes Strengths Ability to acquire knowledge OT Plan Treatment Plan/Goals Established with Patient/Caregiver Yes Treatment Interventions ADL retraining;Endurance training;Functional transfer training;Other (Comment) OT Plan Skilled OT OT Frequency 2-3 times per week until discharge Equipment Recommended Shower bath chairOT - OK to Discharge Yes OT Planned Treatments Discharge OT Duration Discharge Mobility Highest Level of Mobility Performed (-HLM) 6 When therapist arrived pt already in the chair. OT educated on today's goalsand pt reporting feeling slightly stronger but still having fatigue during activities and walking. Pt don extra gown CGA and socks mod I/setup. She required extra time 2/2 slow pace and fatigue. Pt transition STS SBA . Pt able to walk to restroom and perform Toileting SBA. She is SBA to got on/off regular toilet. Pt perform oral and facial hygiene in standing. Pt re-educated on her progress, DME and OT recs. Pt UIC at end of session, all needs in reach, alarm intact. Education DocumentationNo documentation found. Education Comments No comments found. Encounter Goals Encounter Goals (Active) Patient will perform transfer to bathroom with SBA assist to decrease in caregiver burden and for improved independence. Start: 09/14/24 Expected End: 09/28/24 Patient will perform oral hygiene standing at the sink, with SBA assist for improved independence with ADLs Start: 09/14/24 Expected End: 09/28/24 Patient will perform upper body dressing with SBA assist to improve independence with dressing. Start: 09/14/24 Expected End: 09/28/24 Patient will perform lower body dressing with SBA assist to improve independence with dressing. Start: 09/14/24 Expected End: 09/28/24 Patient will tolerated 1--15 min standing functional task with no rest break and SBA assist to improve independence with ADLs Start: 09/14/24 Expected End: 09/28/24 Treatment Note: If this is the last documented treatment, then it will signify discharge from acute care prior to discharge from the therapy service and will serve as the discharge summary. Kimmie Chawla OT * Beth Cisneros PT - 09/15/2024 1:40 PM CDT Physical Therapy Treatment Patient Name: Deepthi Moore Today’s Date: 09/15/24 Room Number: [id number].[id number]* Patient's Preferred Language: [place]ican PT Assessment and Plan: Assessment Patient is motivated to work with PT. She amb significant distance today vs yesterday. Limiting factor for amb is fatigue. Prognosis: Good Medical Staff Made Aware: Yes Plan (Last filed value by PT) Treatment Plan/Goals Established with Patient/Caregiver: Yes Treatment/Interventions: Bed mobility training, Functional activities, Gait training, Transfer training, Therapeutic exercises, Patient education PT Plan: Skilled PT PT Frequency: 3-4 times per week until discharge Equipment Recommended: (None at this time for amb) PT Recommended Transfer Status: Independent AM-PAC Basic Mobility Turning in bed without bedrails: None Lying on back to sitting on edge of flat bed: A Little Bed to chair: None Standing up from chair: None Walk in room: A Little Climbing 3-5 stairs: A Little Mobility Inpatient Raw Score: 21 -M Goal: 6 [facility] Highest Level of Mobility (-HLM) Scale Highest Level of Mobility Performed (JH-HLM): Walked 25 feet or more (i.e. walked outside of room) Subjective: Patient agreed to work with PT Current Problem: This is a 68 y.o. female who is admitted to [facility] with Pericardial effusion [I31.39] Abnormal EKG [R94.31] Acute febrile illness [R50.9] Acute non-ST elevation myocardial infarction (NSTEMI) (CMS/HCC) (HCC) [I21.4] Pain: Pain Assessment Pain Assessment: DVPRS Pain Score: 0 Pain Rating Scale (DVPRS): No pain Objective: Precautions: LE Weight Bearing Status: FWB Isolation Status: Contact Activity Tolerance: Early Mobility/Exercise Safety Screen: Proceed with mobilization - No exclusion criteria met Cognition: Overall Cognitive Status: Within Functional Limits Behavior/Cognition: Alert, Cooperative, Pleasant mood Orientation Level: Oriented X4 Treatments: Therapeutic Activity Time Entry: 10 Therapeutic Activity 1: Patient resting in recliner, set up to amb in cade. Review of sternal precautions performed. Patient expressed understanding of the precautions. She stood at supervision level and used RW to proceed toward cade to amb. Post amb returned to recliner and sat at supervision level. She was positioned to her comfort with all needs in place. Bed Mobility: Bed Mobility Bed Mobility: No Transfers: Transfers Transfer: Yes Transfer 1 Technique 1: Via walking Level of Assistance 1: Supervision/touching assistance Transfer To/From: Chair Assistive Devices And Adaptive Equipments: Walker, front-wheeled Gait Training: Gait Training Time Entry: Gait Training Activity 1 Distance (enter in feet): ~168 feet Gait Training Activity 1: Indoor surface Assistive Devices And Adaptive Equipments: Walker, front-wheeled Level of Assistance 1: Supervision/touching assistance Gait Training Activity 1 Comment: Patient stated she had more confidence using RW at this time and opted to use the RW today while amb. Slow and steady amb noted with ~2 sit breaks due to fatigue. On second sit break patient asked to be wheeled back to room in WC. No SOB noted during amb. Outcome Measures: Patien 09/15/24 1030 Lulu RPE Scale Lulu RPE Scale - How Strenuous and Tiring The Work Feels 14 t Education Education Documentation Mobility, taught by Beth Cisneros PT at 09/15/2024 1:39 PM. Learner: Patient Readiness: Eager Method: Explanation Response: Verbalizes Understanding, Demonstrated Understanding Education Comments No comments found. Goal Encounter Goals Encounter Goals (Active) Patient will perform upper body dressing with SBA assist to improve independence with dressing. Start: 09/14/24 Expected End: 09/28/24 Patient will ambulate >400 feet distance using no device with no assistance Independent (Progressing) Start: 09/14/24 Expected End: 10/12/24 Patient will ascend and descend 4-6 steps with rail no assistance Mod I Start: 09/14/24 Expected End: 10/12/24 Patient will perform chair to and from bed transfer with no assistance Independent (Progressing) Start: 09/14/24 Expected End: 10/12/24 Patient will perform supine to sit on bed/sit to supine with no assistance demonstrating control Independent (Progressing) Start: 09/14/24 Expected End: 10/12/24 Post Therapy Checklist - in chair, call gonzalez within reach, bed/chair alarm in place, and phone within reach Time Calculation:Start Time: 1030 Stop Time: 1053 Time Calculation (min): 23 min PT Recreation Leader Used: N.A. Treatment Note: If this is the last documented treatment, then it will signify discharge from acute care prior to discharge from the therapy service and will serve as the discharge summary. Beth Cisneros PT * Fredy Paulino MD - 09/15/2024 1:27 PM CDT [facility] Progress Note Subjective Patient 65-year-old female with history of CAD status post recent CABG last month, with associated hypertension diabetes mellitus peripheral vascular disease was transferred from nursing home facility for concerns of sepsis secondary to UTI. Was noted to have elevated troponin suspected secondary to demand ischemia in setting of volume overload and sepsis. Cardiology and cardio vascular surgery on board. Patient was initially admitted to family medicine service and was transferred to our care today morning. . Pt seen and evaluated today morning, continues to complain of mild exertional dyspnea. Urine and blood cultures positive for E. Coli-and presently on cefepime and was receiving oral antibiotics and bactrim nursing home facility. Otherwise denies any abdominal pain nausea vomiting Objective Last Recorded Vitals Blood pressure (!) 109/49, pulse 86, temperature 37.2 ?C (98.9 ?F), resp. rate 16, height 1.651 m (5' 5"), weight 78.7 kg (173 lb 8 oz), SpO2 97%. Physical ExamGeneral Appearance: resting comfortably in chair,no acute distress HEENT: no scleral icterus, oral mucosa moist Chest Wall: no retractions Lungs: Fair air entry anteriorly with scattered basilar rales, bilateral diminished breath sounds at lung bases. Heart: Regular rate and rhythm Abdomen: soft,non tender,non distended, protuberant Extremeties: no pedal edema Skin: CABG incision healing well Right lower extremity harvest incision site looks well without infection. Neurologic: Alert ,awake and oriented x 3.clear grossly nonfocal, moving all extremities equally to antigravity Psych- Mood and affect normal Results from last 7 daysLab Units 09/15/24 0346 09/14/24 0524 09/14/24 0258 WBC 10*3/uL 13.59* 17.43* 11.98* HEMOGLOBIN g/dL 10.0* 10.2* 10.9 HEMATOCRIT % 32.2* 32.6* 34.5 PLATELETS 10*3/uL 190* 220 226 Results from last 7 daysLab Units 09/15/24 1141 09/15/24 0629 09/15/24 0346 09/14/24 1222 09/14/24 0258 09/13/24 1544 SODIUM mEq/L -- -- 136 -- 133* 136 POTASSIUM mEq/L -- -- 3.8 -- 3.9 4.3 CHLORIDE mEq/L -- -- 101 -- 98 99 CO2 mEq/L -- -- 22.4 -- 22.5 25.4 BUN mg/dL -- -- 29* -- 26* 18 CREATININE mg/dL -- -- 1.05* -- 1.16* 1.03* GLUCOSE mg/dL -- -- 207* -- 225* 214* POC GLUCOSE mg/dL 367* < > -- < > -- -- CALCIUM mg/dL -- -- 9.0 -- 9.5 9.9 < > = values in this interval not displayed. === 09/14/24 === CT ANGIOGRAM CHEST PULMONARY EMBOLISM - Impression -No evidence of pulmonary embolism. Trace left pleural effusion and dense atelectasis, improved from 09/04/2024. Stable mild cardiomegaly and small pericardial effusion including fluid in the superior pericardial recess. Electronically signed by: Ksenia Morales MD 09/14/2024 03:51 AM [facility] === 09/14/24 === XR CHEST 1 VIEW - Impression -Impression: Stable chest/no change. Electronically signed by: Johnathon Latif MD 09/14/2024 03:06 AM [facility] aspirin, 81 mg, Oral, Dailycarvedilol, 3.125 mg, Oral, BID with meals cefepime, 2 g, Intravenous, q12h clopidogrel, 75 mg, Oral, Daily furosemide, 40 mg, Intravenous, BID insulin glargine, 40 Units, Subcutaneous, q12h DANTE rosuvastatin, 20 mg, Oral, Daily PRN medications: acetaminophen OR acetaminophen OR acetaminophen, dextrose, dextrose, dextrose, dextrose, glucagon, insulin lispro Assessment & Plan Assessment & PlanSepsis (HCC) Likely secondary to UTI Urosepsis secondary to E. coli UTI (urinary tract infection) E.coli uti, with bacteremia Await final blood and urine cx sensitivities Continue cefepime for now, and vancomycin 1 dose of each was administered in ED ID on board 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 S/P CABG x 4 S/p CABG 2/28 Was on heparin drip initially, elevated TROPONIN suspected secondary to demand ischemia with underlying CHF exacerbation-ongoing sepsis. Continue aspirin Plavix statin Cardiology on board Diabetes mellitus, type 2 (HCC) To be continued on titrated up dosages of Lantus insulin with insulin sliding scale Blood sugars not in ideal range at present Ischemic cardiomyopathy EF 40 to 45%, grade 2 diastolic dysfunction of the left ventricle. On last echo 08/29/2024 Acute on chronic systolic (congestive) heart failure (HCC) Gram negative sepsis (CMS/HCC) (HCC) Shortness of breath secondary to volume overload Noted ongoing clinical improvement, will continue with IV diuretics as blood pressure tolerable Chest x-ray also showed small pericardial effusion Lasix 40 IV twice daily initiated Continue GDMT with Coreg Hold Farxiga due to UTI EDUARDA (acute kidney injury) ([facility])Renal function test stable, will continue to monitor Hyperbilirubinemia DVT prophylaxis, heparin subcu, was on IV heparin on admission Current Diet: Adult Diet Carbohydrate Controlled; Carb choice 2500 robert; 2000 ml/day; 2 gm Sodium, Low Fat Dis[facility]: [facility]istsFredy Paulino MD 09/15/2024 This note was dictated with the use of [employer] speech recognition software. Please use best judgement when interpreting and excuse any drying and winding supervisor errors. If any questions in this regard, you can reach out to me at [phone]. * Cisco Ruiz Jr., MD - 09/15/2024 9:05 AM CDT Images from the original note were not included. Cardiology Progress Note SUBJECTIVE: Pt seen and examined. She feels much better, less SOB.No acute changes. No chest pain, dyspnea, or palpitations. Objective VITALS:Visit Vitals BP (!) 110/55 Pulse 84 Temp 37.2 ?C (98.9 ?F) Resp 18 Ht 1.651 m (5' 5") Wt 78.7 kg (173 lb 8 oz) SpO2 100% BMI 28.87 kg/m? OB Status Postmenopausal Smoking Status Never BSA 1.9 m? INTAKE/OUTPUT: Intake/Output Summary (Last 24 hours) at 09/15/2024 0905Last data filed at 09/15/2024 0420 Gross per 24 hour Intake 1050 ml Output 550 ml Net 500 ml I/O last 3 completed shifts:In: 1050 (13.2 mL/kg) [P.O.:1050] Out: 550 (6.9 mL/kg) [Urine:550 (0.2 mL/kg/hr)] Weight: 79.8 kg PHYSICAL EXAM: General: Alert, cooperative, no distressHEENT: NC/AT, anicteric Cardiac: RRR Lungs: Decreased BS Abdomen: Soft, NT/ND Extremities: No edema Neuro: Non-focal MEDICATION:aspirin, 81 mg, Oral, Daily carvedilol, 3.125 mg, Oral, BID with meals cefepime, 2 g, Intravenous, q12h clopidogrel, 75 mg, Oral, Daily furosemide, 40 mg, Intravenous, BID insulin glargine, 40 Units, Subcutaneous, q12h DANTE rosuvastatin, 20 mg, Oral, Daily LABS/IMAGING:Results from last 7 days Lab Units 09/15/24 0629 09/15/24 0346 09/14/24 1222 09/14/24 0258 09/13/24 1544 SODIUM mEq/L -- 136 -- 133* 136 POTASSIUM mEq/L -- 3.8 -- 3.9 4.3 CHLORIDE mEq/L -- 101 -- 98 99 CO2 mEq/L -- 22.4 -- 22.5 25.4 BUN mg/dL -- 29* -- 26* 18 CREATININE mg/dL -- 1.05* -- 1.16* 1.03* GLUCOSE mg/dL -- 207* -- 225* 214* POC GLUCOSE mg/dL 232* -- < > -- -- CALCIUM mg/dL -- 9.0 -- 9.5 9.9 MAGNESIUM mg/dL -- 1.97 -- -- -- < > = values in this interval not displayed. Results from last 7 daysLab Units 09/15/24 0346 09/14/24 0258 09/09/24 0704 ALT U/L <7* 9 10 AST U/L 33 41* 32 ALBUMIN g/dL 3.1* 3.7 3.9 ALK PHOS U/L 129* 148* 132* Results from last 7 daysLab Units 09/15/24 0346 09/14/24 0524 09/14/24 0258 WBC 10*3/uL 13.59* 17.43* 11.98* HEMOGLOBIN g/dL 10.0* 10.2* 10.9 HEMATOCRIT % 32.2* 32.6* 34.5 PLATELETS 10*3/uL 190* 220 226 INR -- 1.48* -- CT of the chest reveals no evidence of pulmonary embolism, but trace leftpleural effusion, small pericardial effusion. Her urine culture is growing gram-negative rods, as well as blood cultures ECHOCARDIOGRAM:No results found for this or any previous visit. EKG:Results for orders placed or performed during the hospital encounter of 09/14/24 ECG 12 lead Collection Time: 09/14/24 2:49 AM Result Value Ref Range Ventricular Rate 101 BPM Atrial Rate 101 BPM AR Interval 138 ms QRS Duration 92 ms QT/QTc 360 ms QTc Calculation 466 ms P-[place] 87 degrees R-[place] 21 degrees T-[place] 130 degrees Problem List[1] ASSESSMENT & PLAN: 1. CAD s.p CABG/ Elevated Troponin- Pt denies CP - 12-lead EKG no acute changes - Troponin elevation due to demand and very recent CABG in the setting of volume overload and UTI/sepsis 2. Urosepsis- + BC's - on abx - ID consulted 3.Elevated BNP- EF 40-45% with grade 2 DD - BNP: 1061 - continue Lasix 40 IVP BID - Strict I/O and daily weights 4. HTN- Stable 5. 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 (CMS/HCC) (HCC) Diabetic macular edema (HCC) History of vitrectomy Primary open angle glaucoma of both eyes Proliferative diabetic retinopathy (HCC) Shortness of breath Flu vaccine need Need for pneumococcal vaccine Screening-pulmonary TB Insomnia Acute non-ST elevation myocardial infarction (NSTEMI) (CMS/HCC) (HCC) UTI (urinary tract infection) Sepsis (HCC) EDUARDA (acute kidney injury) ([facility]) Hyperbilirubinemia * Kimmie Chawla, OT - 09/15/2024 9:00 AM CDT Occupational Therapy Treatment Deepthi Mooer 1955 [email or web address] Assessment: Pt is been seen by OT treatment focus on ADL's, endurance and functional strength. Pt present with decrease activity tolerance, functional strength and ind. She is motivated but reports feeling tired. She required min to SBA with ADL's and transfer. Pt is performing below her baseline. She will continued to benefit from OT skilled services while all goals are met. OT Assessment Results: Impaired ADL status, Impaired endurance, Impaired functional mobility Prognosis: Good Barriers to Discharge: Complicated medical history Evaluation/Treatment Tolerance: Patient tolerated treatment well Medical Staff Made Aware: Yes Strengths: Ability to acquire knowledge Plan: Treatment Plan/Goals Established with Patient/Caregiver: Yes Treatment Interventions: ADL retraining, Endurance training, Functional transfer training OT Planned Treatments: Activities of Daily Living, Energy conservation training, Therapeutic exercises, Therapeutic activities OT Plan: Skilled OT OT Frequency: 2-3 times per week until discharge Equipment Recommended: Shower bath chair OT - OK to Discharge: Yes AM-PAC Daily Activity: Putting on and taking off regular lower body clothing: A Little Bathing (including washing, rinsing, drying): A Little Toileting, which includes using toilet, bedpan or urinal: A Little Putting on and taking off regular upper body clothing: A Little Taking care of personal grooming such as brushing teeth: None Eating Meals: None AM-PAC Daily Activity Raw Score: 20 [facility] Highest Level of Mobility (JH-HLM) Scale Highest Level of Mobility Performed (JH-HLM): Walked 10 steps or more (i.e. walked to restroom) Preferred Language: [place]ican Subjective Pt agreed Treatment: 09/15/24 0900OT Last Visit OT Received On 09/15/24 Time Calculation Start Time 0900 Stop Time 0929 Time Calculation (min) 29 min Precautions UE Weight Bearing Status FWB LE Weight Bearing Status FWB Medical Precautions [place], Post-Surgical Precautions Sternal Precautions Pain Assessment Pain Assessment DVPRS Pain Score 3 Pain Rating Scale (DVPRS) 3 Pain Type Surgical pain Clinical Progression Gradually improving Pain Interventions Repositioned ADL Self Care/Home Management (ADLs) Time Entry 29 Eating Assistance Dependent Grooming Assistance Independent UE Dressing Assistance Supervision/touching assistance LE Dressing Assistance Supervision/touching assistance Toileting Assistance Supervision/touching assistance Bed Mobility Bed Mobility No Transfers Transfer Yes Transfer 1 Technique 1 Via walking Level of Assistance 1 Supervision/touching assistance Transfer To/From Chair Assistive Devices And Adaptive Equipments Walker, front-wheeled Transfers 2 Technique 2 Via walking Level of Assistance 2 Supervision/touching assistance Transfer To/From Other (specify) (Sink) Assistive Devices And Adaptive Equipments Walker, front-wheeled Toilet Transfers Toilet Transfer To/From Toilet Transfer Type Via walking Level of Assistance Supervision/touching assistance Assistive Devices And Adaptive Equipments Walker, Front-wheeled Activity Tolerance Endurance Endurance does not limit participation in activity Sitting Balance Moves/returns truncal midpoint 1-2 inches in multiple planes Early Mobility/Exercise Safety Screen Proceed with mobilization - No exclusion criteria met AM-PAC Daily Activity Inpatient Putting on and taking off regular lower body clothing 3 Bathing (including washing, rinsing, drying) 3 Toileting, which includes using toilet, bedpan or urinal 3 Putting on and taking off regular upper body clothing 3 Taking care of personal grooming such as brushing teeth 4 Eating Meals 4 AM-PAC Daily Activity Raw Score 20 OT Assessment OT Assessment Results Impaired ADL status;Impaired endurance;Impaired functional mobility Prognosis Good Barriers to Discharge Complicated medical history Evaluation/Treatment Tolerance Patient tolerated treatment well Medical Staff Made Aware Yes Strengths Ability to acquire knowledge OT Plan Treatment Plan/Goals Established with Patient/Caregiver Yes Treatment Interventions ADL retraining;Endurance training;Functional transfer training OT Plan Skilled OT OT Frequency 2-3 times per week until discharge Equipment Recommended Shower bath chair OT - OK to Discharge Yes OT Planned Treatments Activities of Daily Living;Energy conservation training;Therapeutic exercises;Therapeutic activities OT Duration Discharge Mobility Highest Level of Mobility Performed (JH-HLM) 6 When therapist arrived pt already in the chair. OT educated on today's goalsand pt agreed. During morning ADL's routine and training. Pt reporting BLE dryness and wanting to clean her feet dry and add petroleum jelly cream. Pt needs extra time and CGA for activity. She also able to don her socks with CGA and extra time. Pt transition STS via RW. She able to the sink with slow pace. Pt demo SBA and extra time to perform oral and facial hygiene. Pt then reported the need to use the restroom and change her underwear for briefs. Pt able to doff SBA but required CGA to don pull ups. She got on/off regular toilet with SBA. Pt then transfer to the sink for hand hygiene SBA. Se ambulated around the room while working on deep breathing exercises and posture. Pt transition to bedside chair. Pt re-educated on use of call lights and OT POC. Pt left UIC at end of session, all needs in reach, alarm intact. Education DocumentationFall Prevention, taught by Kimmie Chawla OT at 09/14/2024 2:18 PM. Learner: Patient Readiness: Eager Method: Explanation Response: Verbalizes Understanding Occupational Therapy Plan of Care, taught by Kimmie Chawla OT at 09/14/2024 2:18 PM. Learner: Patient Readiness: Eager Method: Explanation Response: Verbalizes Understanding Education CommentsNo comments found. Encounter Goals Encounter Goals (Active) Patient will perform transfer to bathroom with SBA assist to decrease in caregiver burden and for improved independence. Start: 09/14/24 Expected End: 09/28/24 Patient will perform oral hygiene standing at the sink, with SBA assist for improved independence with ADLs Start: 09/14/24 Expected End: 09/28/24 Patient will perform upper body dressing with SBA assist to improve independence with dressing. Start: 09/14/24 Expected End: 09/28/24 Patient will perform lower body dressing with SBA assist to improve independence with dressing. Start: 09/14/24 Expected End: 09/28/24 Patient will tolerated 1--15 min standing functional task with no rest break and SBA assist to improve independence with ADLs Start: 09/14/24 Expected End: 09/28/24 Treatment Note: If this is the last documented treatment, then it will signify discharge from acute care prior to discharge from the therapy service and will serve as the discharge summary. Kimmie Chawla OT * GAEL Taylor - 09/15/2024 12:00 AM CDT PATIENT NAME: DEEPTHI MOORE CONTACT SERIAL NUMBER: [id number] DATE OF PROGRESS NOTE: 09/15/2024 SUBJECTIVE: The patient is awake. She is out of bed in a chair. Her shortness of breath has improved and she feels better. OBJECTIVE: VITAL SIGNS: Blood pressure 110/55, heart rate 85, respirations 19, O2 saturation 97%. CARDIOVASCULAR: Regular rate and rhythm. LUNGS: Decreased breath sounds at bases. ABDOMEN: Soft, nontender. Positive bowel sounds. EXTREMITIES: Trace edema. NEUROLOGIC: No deficit. LABORATORY DATA: Sodium 136, potassium 3.8, creatinine 1.0, BUN 29. WBC 13.5, hemoglobin 10.0, hematocrit 32.2, platelets 190. STUDIES: CT of the chest reveals no evidence of pulmonary embolism, but trace left pleural effusion, small pericardial effusion. Her urine culture is growing gram-negative rods, as well as blood cultures ASSESSMENT AND PLAN: Status post coronary artery bypass surgery, urinary tract infection, bacteremia, elevated troponin. Denies any chest pain. Her shortness of breath has improved. Continue medical management. IV antibiotics, and Lasix. ID service consulted. Dictated by: [facility] Cosigned by Fabricio Lucas MD at 09/15/2024 4:52 PM CDT * Beth Cisneros PT - 09/14/2024 1:59 PM CDT Physical Therapy Evaluation and Treatment Patient Name: Deepthi Moore Today’s Date: 09/14/24 Room Number: [id number]* Patient's Preferred Language: [place] Rican PT Assessment and Plan: Assessment PT evaluation completed. Patient amb only around her room per her preferenc, stating she feels a bit weak but agreeable to increased amb next session. She is mostly supervision/CGA for functional mobility. She will benefit from PT to maximize safety and independence with functional mobility. Prognosis: Good Strengths: Ability to acquire knowledge, Attitude of self, Coping skills Evaluation/Treatment Tolerance: Patient limited by fatigue Medical Staff Made Aware: Yes Plan Treatment Plan/Goals Established with Patient/Caregiver: Yes Treatment/Interventions: Bed mobility training, Functional activities, Therapeutic exercises, Transfer training PT Plan: Skilled PT PT Frequency: 3-4 times per week until discharge Equipment Recommended: (None at this time for amb) PT Recommended Transfer Status: Independent AM-PAC Basic Mobility Turning in bed without bedrails: None Lying on back to sitting on edge of flat bed: None Bed to chair: A Little Standing up from chair: A Little Walk in room: A Little Climbing 3-5 stairs: A Little Mobility Inpatient Raw Score: 20 -M Goal: 6 [facility] Highest Level of Mobility (JH-HLM) Scale Highest Level of Mobility Performed (JH-HLM): Walked 10 steps or more (i.e. walked to restroom) Subjective: Patient agreed to work with PT Current Problem: This is a 68 y.o. female who is admitted to [facility] with Pericardial effusion [I31.39] Abnormal EKG [R94.31] Acute febrile illness [R50.9] Acute non-ST elevation myocardial infarction (NSTEMI) (CMS/HCC) ([facility]) [I21.4] Medical History[1] Surgical History[2] Pain: (Pre Therapy Score) Pain Assessment Pain Assessment: DVPRS Pain Score: 0 Pain Rating Scale (DVPRS): No pain Social History: Home Living: Type of Home: Apartment Lives With: Spouse Home Adaptive Equipment: None Home Layout: (patient lives in second floor apartment with stairs acces only (17 steps)) Prior Level of Function: Level of [place]: Other (Comment) (amb independent) Objective: Precautions: LE Weight Bearing Status: FWB Isolation Status: Contact Cognition: Overall Cognitive Status: Within Functional Limits Behavior/Cognition: Alert, Cooperative, Pleasant mood Orientation Level: Oriented X4 General Assessment: Activity Tolerance: Early Mobility/Exercise Safety Screen: Proceed with mobilization - No exclusion criteria met Extremity Assessments Right Lower Extremity: RLE Assessment RLE Assessment: Within Functional Limits Left Lower Extremity: LLE Assessment LLE Assessment: Within Functional Limits Sensation: Light Touch: RLE Intact, LLE Intact Balance - Sitting: Static Sitting Balance Static Sitting-Balance Support: Feet supported Level of Assistance: Independent, Supervision/touching assistance Dynamic Sitting Balance Dynamic Sitting-Balance Support: Feet supported, Feet unsupported Balance - Standing: Static Standing Balance Static Standing-Balance Support: Unilateral upper extremity supported Static Standing-Level of Assistance: Supervision/touching assistance Dynamic Standing Balance Dynamic Standing-Balance Support: Unilateral upper extremity supported Functional Assessments and Treatments: Therapeutic Activity Time Entry: 10 Therapeutic Activity 1: Patient sat EOB at Independen level with HOB slightly elevated. Stood a supervision level and amb ~15 steps to recliner CGA hand held assist. Positioned to her comfort with all needs within reach. Bed Mobility: Bed Mobility Bed Mobility: Yes Bed Mobility 1 Level of Assistance 1: Independent Bed Mobility To/From: Sitting EOB to supine Transfers: Transfers Transfer: Yes Transfer 1 Technique 1: Via walking Level of Assistance 1: Supervision/touching assistance Transfer To/From: Bed Gait Training: Gait Training Activity 1 Distance (enter in feet): ~15 feet Gait Training Activity 1: Indoor surface Assistive Devices And Adaptive Equipments: (hand held aparna) Level of Assistance 1: Supervision/touching assistance Outcome Measures: 09/14/24 1300 Lulu RPE Scale Lulu RPE Scale - How Strenuous and Tiring The Work Feels 12 - Moderate Patient Education Education Documentation Mobility, taught by Beth Cisneros PT at 09/14/2024 1:57 PM. Learner: Patient Readiness: Eager Method: Explanation Response: Verbalizes Understanding Education Comments No comments found. Goal Encounter Goals Encounter Goals (Active) Patient will ambulate >400 feet distance using no device with no assistance Independent Start: 09/14/24 Expected End: 10/12/24 Patient will ascend and descend 4-6 steps with rail no assistance Mod I Start: 09/14/24 Expected End: 10/12/24 Patient will perform chair to and from bed transfer with no assistance Independent Start: 09/14/24 Expected End: 10/12/24 Patient will perform supine to sit on bed/sit to supine with no assistance demonstrating control Independent Start: 09/14/24 Expected End: 10/12/24 Post Therapy Checklist - in chair, call gonzalez within reach, bed/chair alarm in place, and phone within reach Time CalculationStart Time: 1300 Stop Time: 1320 Time Calculation (min): 20 min PT Recreation Leader Used: N.A. Treatment Note: If this is the last documented treatment, then it will signify discharge from acute care prior to discharge from the therapy service and will serve as the discharge summary. Beth Cisneros, PT [1]Past Medical History: Diagnosis Date Coronary artery disease Diabetes mellitus (HCC) Heart disease Hypertension Hypotension Peripheral artery disease (HCC) [2] Past Surgical History: Procedure Laterality Date CATARACT EXTRACTION 2009 and 2012 RETINAL DETACHMENT SURGERY Right 2013 * Kimmie Chawla, OT - 09/14/2024 1:45 PM CDT Occupational Therapy Evaluation and Treatment Deepthi Mirelesz 1955 [id number]/[id number].CVIMU* Assessment: Pt is been seen by OT for initial skilled evaluation admitted with UTI Dx. OT eval completed. Pt PLOF is Ind and she is well known to our services. Pt oriented and cooperative. She present with decrease activity tolerance, functional strength and ind. She demo CGA with ADL's and transfer. Pt is performing below her baseline. She will continued to benefit from OT skilled services while all goals are met. Assessment: OT Assessment Results: Impaired ADL status, Impaired endurance, Impaired gross motor control Prognosis: Good Barriers to Discharge: Complicated medical history Evaluation/Treatment Tolerance: Patient tolerated treatment well Medical Staff Made Aware: Yes Strengths: Capable of completing ADLs semi/independent PLAN:Treatment Plan/Goals Established with Patient/Caregiver: Yes Treatment Interventions: ADL retraining, Endurance training, Functional transfer training, UE strengthening/ROM OT Planned Treatments: Discharge OT Plan: Skilled OT OT Frequency: 2-3 times per week until discharge OT Duration: 1-2 weeks Equipment Recommended: Shower bath chair OT - OK to Discharge: Yes AM-PAC Daily Activity:Putting on and taking off regular lower body clothing: A Little Bathing (including washing, rinsing, drying): A Little Toileting, which includes using toilet, bedpan or urinal: A Little Putting on and taking off regular upper body clothing: A Little Taking care of personal grooming such as brushing teeth: None Eating Meals: None AM-PAC Daily Activity Raw Score: 20 [facility] Highest Level of Mobility (-HLM) ScaleHighest Level of Mobility Performed (-HLM): Static standing (1 or more minutes) Current ProblemRita Abi Moore is a 68 y.o. year old female patient with Pericardial effusion [I31.39] Abnormal EKG [R94.31] Acute febrile illness [R50.9] Acute non-ST elevation myocardial infarction (NSTEMI) (CMS/HCC) (HCC) [I21.4] referred for Occupational therapy services . Medical History[1] Surgical History[2] Preferred Language: Puerto Rican Subjective Pt agreed but reporting feeling weak. Evaluation 09/14/24 1345OT Last Visit OT Received On 09/14/24 Time Calculation Start Time 1345 Stop Time 1408 Time Calculation (min) 23 min Precautions UE Weight Bearing Status FWB LE Weight Bearing Status FWB Medical Precautions [place] Post-Surgical Precautions Standard, Fall Braces Applied Sternal Precautions Pain Assessment Pain Assessment DVPRS Pain Rating Scale (DVPRS) 0 Cognitive-Linguistic Functioning Overall Cognitive Status WFL Behavior/Cognition Alert;Cooperative Orientation Level Oriented X4 Home Living Type of Home Apartment Lives With Spouse Home Adaptive Equipment None Home Living Comments 2nd floor Home Access Stairs to enter with rails Bathroom Shower/Tub Tub/shower unit Bathroom Toilet Standard Bathroom Equipment None Bathroom Accessibility "Pt. has a walk in shower downstairs but no equipment in downstairs shower. has a built in shower chair and grab bars in upstairs walk in shower." Prior Function Level of [place] Other (Comment) (Ind) Receives Help From Neighbor;Family ADL Assistance Independent Homemaking Assistance Independent Vocational Retired ADL Eating Assistance Independent Grooming Assistance Independent UE Dressing Assistance Supervision/touching assistance LE Dressing Assistance Supervision/touching assistance Toileting Assistance Supervision/touching assistance Bed Mobility Bed Mobility No Transfers Transfer Yes Transfer 1 Technique 1 Via walking Level of Assistance 1 Supervision/touching assistance Transfer To/From [id number] Assistive Devices And Adaptive Equipments Walker, front-wheeled Activity Tolerance Endurance Tolerates less than 10 min exercise with changes in vital signs Sitting Balance Moves/returns truncal midpoint more than 2 inches in all planes Early Mobility/Exercise Safety Screen Proceed with mobilization - No exclusion criteria met Sensation Light Touch RUE Intact;LUE Intact Perception Inattention/Neglect Appears intact Initiation Appears intact Motor Planning Appears intact Perseveration Not present Coordination Movements are Fluid and Coordinated Yes Finger to Nose Left intact;Right intact Hand Function Gross Grasp Functional Coordination Functional RUE Assessment RUE Assessment WFL (3+/5) LUE Assessment LUE Assessment WFL (3+/5) AM-PAC Daily Activity Inpatient Putting on and taking off regular lower body clothing 3 Bathing (including washing, rinsing, drying) 3 Toileting, which includes using toilet, bedpan or urinal 3 Putting on and taking off regular upper body clothing 3 Taking care of personal grooming such as brushing teeth 4 Eating Meals 4 AM-PAC Daily Activity Raw Score 20 OT Assessment OT Assessment Results Impaired ADL status;Impaired endurance;Impaired gross motor control Prognosis Good Barriers to Discharge Complicated medical history Evaluation/Treatment Tolerance Patient tolerated treatment well Medical Staff Made Aware Yes Strengths Capable of completing ADLs semi/independent OT Plan Treatment Plan/Goals Established with Patient/Caregiver Yes Treatment Interventions ADL retraining;Endurance training;Functional transfer training;UE strengthening/ROM OT Plan Skilled OT OT Frequency 2-3 times per week until discharge Equipment Recommended Shower bath chairOT - OK to Discharge Yes OT Planned Treatments Discharge OT Duration 1-2 weeks OT Evaluation Time Entry OT Evaluation (Complex) Time Entry 15 Mobility Highest Level of Mobility Performed (JH-HLM) 5 Treatment:When therapist arrived pt [facility] and agreed to work with OT. She reported recently working with PT and feeling very tired. Pt re-educated on OT role and eval goals for today. She reports making progress with therapy at SNF, until getting a fever. Pt participated in BUE assessment focus on coordination, sensation and strength within precautions. Pt performed preparatory BUE/BLE AROM within all joints of movement, only 10 reps 2/2 fatigue. Pt transition STS via RW and CGA. She walk back and fw x3 steps and return to sit. Pt and family educated on OT POC, rehab progression and fall prevention. Pt left [facility], at bedside at end of session, all needs in reach, alarm intact. Education DocumentationFall Prevention, taught by Kimmie Chawla OT at 09/14/2024 2:18 PM. Learner: Patient Readiness: Eager Method: Explanation Response: Verbalizes Understanding Occupational Therapy Plan of Care, taught by Kimmie Chawla OT at 09/14/2024 2:18 PM. Learner: Patient Readiness: Eager Method: Explanation Response: Verbalizes Understanding Education CommentsNo comments found. Encounter Goals Encounter Goals (Active) Patient will perform transfer to bathroom with SBA assist to decrease in caregiver burden and for improved independence. Start: 09/14/24 Expected End: 09/28/24 Patient will perform oral hygiene standing at the sink, with SBA assist for improved independence with ADLs Start: 09/14/24 Expected End: 09/28/24 Patient will perform upper body dressing with SBA assist to improve independence with dressing. Start: 09/14/24 Expected End: 09/28/24 Patient will perform lower body dressing with SBA assist to improve independence with dressing. Start: 09/14/24 Expected End: 09/28/24 Patient will tolerated 1--15 min standing functional task with no rest break and SBA assist to improve independence with ADLs Start: 09/14/24 Expected End: 09/28/24 Treatment Note: If this is the last documented treatment, then it will signify discharge from acute care prior to discharge from the therapy service and will serve as the discharge summary. Kimmie Chawla OT [1]Past Medical History: Diagnosis Date Coronary artery disease Diabetes mellitus (HCC) Heart disease Hyperlipidemia 09/07/2024 Hypertension Hypotension Peripheral artery disease (HCC) [2] Past Surgical History: Procedure Laterality Date CATARACT EXTRACTION 2009 and 2012 RETINAL DETACHMENT SURGERY Right 2013 * Edgar Mcdonough MD - 09/14/2024 9:39 AM CDT Subjective Patient admitted to [facility] hospitalist service this morning after being sent by EMS from [facility]. Transferred to Family Medicine Service (FMS) as she is a patient on our team's service at [facility]. Feels very tired. Sleeping all the time. No current subjective fevers or chills. Not complaining of dyspnea at this time. Per at bedside, she was doing OK at SNF and then yesterday stopped eating and got short of breath. He is concerned that Farxiga was started yesterday and caused the UTI Objective Last Recorded Vitals Blood pressure (!) 122/52, pulse 77, temperature 36.5 ?C (97.7 ?F), resp. rate 18, height 1.651 m (5' 5"), weight 80.1 kg (176 lb 9.4 oz), SpO2 99%. Physical Exam: Constitutional: General: She is sleeping. Appearance: She is not toxic-appearing. Comments: Awakens briefly to answer questions Pulmonary: Effort: Pulmonary effort is normal. Breath sounds: Normal breath sounds and air entry. Abdominal: Tenderness: There is no abdominal tenderness. Neurological: Mental Status: She is oriented to person, place, and time. Assessment & Plan Sepsis ([facility]) SIRS (fever, tachycardia, and leukocytosis) with source (UTI) on presentation. No fluids given pulmonary edema. Monitor BP closely. ABX therapy per below. COVID PCR/Flu antigen negative. Transplant respiratory viral panel ordered. UTI (urinary tract infection) w/ pyruia and positive nitrites Cefepime 2 grams Q8H for hospital-acquired infection given recent hospitalization and stay in SNF. May be due to Farxiga though it was only started 1 day prior. Stop Farxiga. Follow original urine culture (from SNF) collected 09/13. Acute non-ST elevation myocardial infarction (NSTEMI) ([facility]/HCC) ([facility]) Cardiology on-call Dr. Borrero consulted for [facility] overnight. 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 Trops downtrending. May be due to recent CABG. Started on Heparin drip overnight. Stop Heparin drip now per Dr. Ruiz. Acute on chronic systolic (congestive) heart failure (HCC) Mild exacerbation with some pulm edema and pleural effusion on CXR. NO O2 requirement. EF 40-45%. 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 Anais consulted) 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 Cardiology consulted. Diabetes mellitus, type 2 (HCC) BG elevated. Restart past SNF basal regimen (had recently been increased) of 40 units BID. High dose sliding scale insulin. Stop Farxiga. Hyperlipidemia Rosuvastatin 20 mg nightly EDUARDA (acute kidney injury) (HCC) Increase in creatinine from baseline (~0.80) to May be due to diuresis and sepsis. Hyperbilirubinemia Mild, slight direct predominance. May be due to sepsis. Monitor. If increase of RUQ pain occurs, consider RUQ ultrasound. Current Diet: Adult Diet Carbohydrate Controlled; Carb choice 2500 robert; 2000 ml/day; 2 gm Sodium, Low Fat VTE Prophylaxis This patient does not have an active medication from one of the medication groupers. Disposition: IMU today. Reason for continued hospitalization: Sepsis, NSTEMI Discussed with attending physician Dr. Styles. Edgar Mcdonough M.D. Resident Physician, PGY-3 [facility] MSO #[id number] Spec [phone] Cosigned by Reuben Styles MD at 09/18/2024 7:11 PM CDT Associated attestation - Reuben Styles MD - 09/18/2024 7:11 PM CDT I saw and evaluated the patient, participating in the doty portions of the service. I reviewed the resident's note. I agree with the resident's findings and plan. * Etta Carlson PharmD - 09/14/2024 8:29 AM CDT Clinician Notes: Indication for Vancomycin: Suspect Sepsis AUC Goal: 450 Vancomycin Start Date: 09/14/24 Duration: 2 days (stop date 09/16/24) Next level 09/15/24 with AM labs and 11am MRSA PCR: Ordered Model: 2-Compartment (possible EDUARDA) Recommended Dose: 1000 mg IV over 1 hour every 24 hours for 3 days Next Dose At: 15:56 on Sep 15 2024 Dosing Interval: 24 hours Infusion Length: 1 hours Dose Valid For: 3 days only Dose Recommendation Method: Clinician-selected target (Population model) Target Outcome: AUC24: 450 mcg.h/mL Predicted Outcome: AUC24: 419.09 mcg.h/mL Predicted Peak: 26.1 mcg/mL Predicted Trough: 13.1 mcg/mL Predicted AUC24: 419.1 mcg.h/mL [facility]2025-03-25 19:43:00Pending Results Scheduled Orders Name Type Priority Associated Diagnoses Order Schedule POCT Glucose Point of Care Testing - Docked Device Routine Every 6 hours (Lab) for 30 Days starting 09/14/2024 until 10/14/2024, 25 completed POCT Glucose Point of Care Testing - Docked Device Routine Every 15 minutes as needed until discontinued starting 09/14/2024 Basic Metabolic Panel Lab STAT Morning draw (La b) for 30 Occurrences starting 09/15/2024 until 10/14/2024, 5 completed Magnesium Level Lab STAT Morning d raw (Lab) for 30 Occurrences starting 09/15/2024 until 10/14/2024, 6 completed Hepatic Function Panel Lab STAT Morning draw (La b) for 30 Occurrences starting 09/15/2024 until 10/14/2024, 5 completed POCT Glucose Point of Care Testing - Docked Device Routine 3 times daily before meals (Lab) for 30 Days starting 09/14/2024 until 10/14/2024, 20 completed POCT Glucose Point of Care Testing - Docked Device Routine Every 15 minutes as needed until discontinued starting 09/14/2024 Health Maintenance Due Date Last Done Comments CT Colonography 1955 Colonoscopy 1955 Colorectal Cancer Screening 1955 FIT-DNA 1955 FIT 1955 FOBT 1955 Medicare Annual Wellness (AWV) 1955 Sigmoidoscopy 1955 Diabetes: Foot Exam 10/17/1965 Respiratory Syncytial Virus (RSV) or >=60 (1 - Risk 60-74 years 1-dose series) 2015 Pneumococcal Vaccine: 50+ Years (2 of 2 - PCV) 02/19/2018 02/19/2017 Diabetes: Retinopathy Screening 09/19/2023 09/18/2022, 03/17/2022, 11/07/2021 Diabetes: Urine Protein Screening 01/08/2024 01/07/2023, 09/30/2022, 06/11/2021 Zoster Vaccines (3 of 3) 04/12/2024 02/16/2024, 01/28 Diabetes: Hemoglobin A1C 11/22/2024 025, 06/24/2024, 01/07/2023, Additional history exists Lipid Panel 08/25/2025 08/25/2024, 05/30, 09/30/2022, Additional history exists Mammogram 05/10/2026 05/10/2024, 09/19/2021 DTaP/Tdap/Td Vaccines (2 - Td or Tdap) 02/19/2027 02/19/2017, 11/13/2008 Bone Density Scan Completed 04/18/2021, 04/18/2021 Influenza Vaccine Completed 09/12/2024, , 05/04/2022, Additional history exists HIB Vaccines Aged Out No longer eligi ble based on patient's age to complete this topic HPV Vaccines Aged Out No longer eligi ble based on patient's age to complete this topic Hepatitis A Vaccines Aged Out No long er eligible based on patient's age to complete this topic Hepatitis B Vaccines Aged Out No long er eligible based on patient's age to complete this topic IPV Vaccines Aged Out No longer eligi ble based on patient's age to complete this topic Meningococcal Vaccine Aged Out No berta juli eligible based on patient's age to complete this topic Rotavirus Vaccines Aged Out No longer eligible based on patient's age to complete this topic [id number] 19:43:00 [id number] 19:43:00 Diagnosis Acute non-ST elevation myoca rdial infarction (NSTEMI) ([facility]) ([facility]) - Primary Acute non-ST elevation myoca rdial infarction (NSTEMI) ([facility]) ([facility]) Acute febrile illness Pericardial effusion Unspecified disease of pericardium Abnormal EKG Nonspecific abnormal electrocardiogram (ECG) (EKG) Ischemic cardiomyopathy Other specified forms of chronic ischemic heart disease Diabetes mellitus, type 2 ([facility]) Type II or unspecified type diabetes mellitus without mention of complication, not stated as uncontrolled 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 Hyperlipidemia Other and unspecified hyperlipidemia S/P CABG x 4 Postsurgical aortocoronary bypass status UTI (urinary tract infection) Urinary tract infection, site not specified Sepsis ([facility]) 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 EDUARDA (acute kidney injury) ([facility]) Hyperbilirubinemia Disorders of bilirubin excretion Gram negative sepsis ([facility]) ([facility]) Septicemia due to unspecified gram-negative organism [facility] [id number] 19:43:00 [place] [id number] 19:29:16 Report given to PATRICIA Choudhury [facility] [id number] 16:40:17 Images from the original note were not included. [id number] Levofloxacin Brand Name(s): Levaquin?; also available generically IMPORTANT WARNING: Taking levofloxacin increases the risk that you will develop tendinitis (swelling of a fibrous tissue that connects a bone to a muscle) or have a tendon rupture (tearing of a fibrous tissue that connects a bone to a muscle) during your treatment or for up to several months afterward. These problems may affect tendons in your shoulder, your hand, the back of your ankle, or in other parts of your body. Tendinitis or tendon rupture may happen to people of any age, but the risk is highest in people over 60 years of age. Tell your doctor if you have or have ever had a kidney, heart, or lung transplant; kidney disease; a joint or tendon disorder such as rheumatoid arthritis (a condition in which the body attacks its own joints, causing pain, swelling, and loss of function); or if you participate in regular physical activity. Tell your doctor and pharmacist if you are taking oral or injectable steroids such as dexamethasone, methylprednisolone (Medrol), or prednisone (Samara). If you experience any of the following symptoms of tendinitis, stop taking levofloxacin, rest, and call your doctor immediately: pain, swelling, tenderness, stiffness, or difficulty in moving a muscle. If you experience any of the following symptoms of tendon rupture, stop taking levofloxacin and get emergency medical treatment: hearing or feeling a snap or pop in a tendon area, bruising after an injury to a tendon area, or inability to move or bear weight on an affected area. Taking levofloxacin may cause changes in sensation and nerve damage that may not go away even after you stop taking levofloxacin. This damage may occur soon after you begin taking levofloxacin. Tell your doctor if you have ever had peripheral neuropathy (a type of nerve damage that causes tingling, numbness, and pain in the hands and feet). If you experience any of the following symptoms, stop taking levofloxacin and call your doctor immediately: numbness, tingling, pain, burning, or weakness in the arms or legs; or a change in your ability to feel light touch, vibrations, pain, heat, or cold. Taking levofloxacin may affect your brain or nervous system and cause serious side effects. This can occur after the first dose of levofloxacin. Tell your doctor if you have or have ever had seizures, epilepsy, cerebral arteriosclerosis (narrowing of blood vessels in or near the brain that can lead to stroke or ministroke), stroke, changed brain structure, or kidney disease. If you experience any of the following symptoms, stop taking levofloxacin and call your doctor immediately: seizures; tremors; dizziness; lightheadedness; headaches that won't go away (with or without blurred vision); difficulty falling asleep or staying asleep; nightmares; not trusting others or feeling that others want to hurt you; hallucinations (seeing things or hearing voices that do not exist); thoughts or actions towards hurting or killing yourself; feeling restless, anxious, nervous, depressed, memory problems, or confused, or other changes in your mood or behavior. Taking levofloxacin may worsen muscle weakness in people with myasthenia gravis (a disorder of the nervous system that causes muscle weakness) and cause severe difficulty breathing or . Tell your doctor if you have myasthenia gravis. Your doctor may tell you not to take levofloxacin. If you have myasthenia gravis and your doctor tells you that you should take levofloxacin, call your doctor immediately if you experience muscle weakness or difficulty breathing during your treatment. Talk to your doctor about the risks of taking levofloxacin. Your doctor or pharmacist will give you the [employer]er's patient information sheet (Medication Guide) when you begin treatment with levofloxacin. Read the information carefully and ask your doctor or pharmacist if you have any questions. You can also visit the Food and Drug Administration (FDA) website (https://www.fda.gov/Drugs) or the [employer]er's website to obtain the Medication Guide. WHY is this medicine prescribed? Levofloxacin is used to treat certain infections such as pneumonia, and kidney, prostate (a male reproductive gland), and skin infections. Levofloxacin is also used to prevent anthrax (a serious infection that may be spread on purpose as part of a bioterror attack) in people who may have been exposed to anthrax germs in the air, and treat and prevent plague (a serious infection that may be spread on purpose as part of a bioterror attack. Levofloxacin may also be used to treat bronchitis, sinus infections, or urinary tract infections but should not be used for bronchitis and certain types of urinary tract infections if there are other treatment options available. Levofloxacin is in a class of antibiotics called fluoroquinolones. It works by killing bacteria that cause infections. Antibiotics such as levofloxacin will not work for colds, flu, or other viral infections. Using antibiotics when they are not needed increases your risk of getting an infection later that resists antibiotic treatment. HOW should this medicine be used? Levofloxacin comes as a tablet and a solution (liquid) to take by mouth. It is usually taken once a day. The length of your treatment depends on the type of infection you have. Your doctor will tell you how long to take levofloxacin. The tablet may be taken with or without food. The solution should be taken 1 hour before or 2 hours after eating. Take levofloxacin at around the same time every day. Follow the directions on your prescription label carefully, and ask your doctor or pharmacist to explain any part you do not understand. Take levofloxacin exactly as directed. Do not take more or less of it or take it more often than prescribed by your doctor. You should begin to feel better during the first few days of treatment with levofloxacin. If your symptoms do not improve or if they get worse, call your doctor. Take levofloxacin until you finish the prescription, even if you feel better. Do not stop taking levofloxacin without talking to your doctor unless you experience certain serious side effects listed in the IMPORTANT WARNING or SIDE EFFECTS sections. If you stop taking levofloxacin too soon or skip doses, your infection may not be completely treated and the bacteria may become resistant to antibiotics. Are there OTHER USES for this medicine? Levofloxacin is also sometimes used to treat endocarditis (infection of the heart lining and valves), certain sexually transmitted diseases, salmonella (an infection that causes severe diarrhea), shigella (an infection that causes severe diarrhea), inhalation anthrax (a serious infection that may be spread by anthrax germs in the air on purpose as part of a bioterror attack), and tuberculosis (TB). Levofloxacin is also sometimes used to prevent or treat traveler's diarrhea. Talk to your doctor about the risks of using this medication for your condition. This medication may be prescribed for other uses; ask your doctor or pharmacist for more information. What SPECIAL PRECAUTIONS should I follow? Before taking levofloxacin, ? tell your doctor and pharmacist if you are allergic or have had a severe reaction to levofloxacin; any other quinolone or fluoroquinolone antibiotic such as ciprofloxacin (Cipro), delafloxacin (Baxdela), gemifloxacin (Factive), moxifloxacin (Avelox), and ofloxacin, or any other medications, or if you are allergic to any of the ingredients in levofloxacin preparations. Ask your pharmacist or check the Medication Guide for a list of the ingredients. ? tell your doctor and pharmacist what other prescription and nonprescription medications, vitamins, nutritional supplements, and herbal products you are taking or plan to take while taking levofloxacin. Your doctor may need to change the doses of your medications or monitor you carefully for side effects. ? if you are taking antacids containing aluminum hydroxide or magnesium hydroxide (Maalox, Mylanta, others), or certain medications such as didanosine (Videx) solution, sucralfate (Carafate), or vitamin or mineral supplements that contain iron or zinc, take these medications at least 2 hours before or after you take levofloxacin. ? the following nonprescription products may interact with levofloxacin: nonsteroidal anti-inflammatory drugs (NSAIDS) such as ibuprofen (Advil, Motrin, others) and naproxen (Aleve). Be sure to let your doctor and pharmacist know that you are taking these medications before you start taking levofloxacin. Do not start any of these medications while taking levofloxacin without discussing with your healthcare provider. ? tell your doctor if you or anyone in your family has or has ever had a prolonged QT interval (a rare heart problem that may cause irregular heartbeat, fainting, or sudden ). Tell your doctor if you have or ever have had a slow or irregular heartbeat, a recent heart attack, an aortic aneurysm (swelling of the large artery that carries blood from the heart to the body), high blood pressure, peripheral vascular disease (poor circulation in the blood vessels), Marfan syndrome (a genetic condition that can affect the heart, eyes, blood vessels and bones), Sabrina-Danlos syndrome (a genetic condition that can affect skin, joints, or blood vessels), or if you have a low level of potassium or magnesium in your blood. Also tell your doctor if you have or have ever had diabetes or problems with low blood sugar or liver disease. ? tell your doctor if you are , plan to become , or are . If you become while taking levofloxacin, call your doctor. ? do not drive a car, operate machinery, or participate in activities requiring alertness or coordination until you know how this medication affects you. ? plan to avoid unnecessary or prolonged exposure to sunlight or ultraviolet light (tanning beds and sunlamps) and to wear protective clothing, sunglasses, and sunscreen. Levofloxacin may make your skin sensitive to sunlight or ultraviolet light. If your skin becomes reddened, swollen, or blistered, like a bad sunburn, call your doctor. What SPECIAL DIETARY instructions should I follow? Make sure you drink plenty of water or other fluids every day while you are taking levofloxacin. What should I do IF I FORGET to take a dose? Take the missed dose as soon as you remember it. However, if it is almost time for the next dose, skip the missed dose and continue your regular dosing schedule. Do not take a double dose to make up for a missed one. What SIDE EFFECTS can this medicine cause? If you experience any of the following symptoms, or any of the symptoms described in the IMPORTANT WARNING section, stop taking levofloxacin and call your doctor immediately or get emergency medical help: ? severe diarrhea (watery or bloody stools) that may occur with or without fever and stomach cramps (may occur up to 2 months or more after your treatment) ? rash ? hives ? itching ? peeling or blistering of the skin ? fever ? swelling of the eyes, face, mouth. lips, tongue, throat, hands, feet, ankles or lower legs ? hoarseness or throat tightness ? ongoing or worsening cough ? difficulty breathing or swallowing ? extreme thirst or hunger; pale skin; feeling shaky or trembling; fast or fluttering heartbeat; sweating; frequent urination; trembling; blurred vision; or unusual anxiety ? fainting or loss of consciousness ? yellowing of the skin or eyes; pale skin; dark urine; or light colored stool ? seizures ? unusual bruising or bleeding ? sudden pain in the chest, stomach, or back Levofloxacin may cause problems with bones, joints, and tissues around joints in children. Levofloxacin should not normally be given to children younger than 18 years of age unless they have plague or have been exposed to plague or anthrax in the air. If your doctor prescribes levofloxacin for your child, be sure to tell the doctor if your child has or has ever had joint-related problems. Call your doctor if your child develops joint problems, such as pain or swelling, while taking levofloxacin or after treatment with levofloxacin. Talk to your doctor about the risks of taking levofloxacin or giving levofloxacin to your child. Levofloxacin may cause other side effects. Call your doctor if you have any unusual problems while taking this medication. If you experience a serious side effect, you or your doctor may send a report to the Food and Drug Administration's (FDA) MedWatch Adverse Event Reporting program online (https://www.fda.gov/Safety/MedWatch) or by phone ( ). What should I know about STORAGE and DISPOSAL of this medication? Keep this medication in the container it came in, tightly closed, and out of reach of children. Store it at room temperature and away from excess heat and moisture (not in the bathroom). It is important to keep all medication out of sight and reach of children as many containers (such as weekly pill minders and those for eye drops, creams, patches, and inhalers) are not child-resistant and young children can open them easily. To protect young children from poisoning, always lock safety caps and immediately place the medication in a safe location - one that is up and away and out of their sight and reach. https://www.upandaway.org Unneeded medications should be disposed of in special ways to ensure that pets, children, and other people cannot consume them. However, you should not flush this medication down the toilet. Instead, the best way to dispose of your medication is through a medicine take-back program. Talk to your pharmacist or contact your local garbage/recycling department to learn about take-back programs in your community. See the FDA's Safe Disposal of Medicines website (https://goo.gl/c4Rm4p) for more information if you do not have access to a take-back program. What should I do in case of OVERDOSE? In case of overdose, call the poison control helpline at . Information is also available online at https://www.poisonhelp.org/help. If the victim has collapsed, had a seizure, has trouble breathing, or can't be awakened, immediately call emergency services at 051. What OTHER INFORMATION should I know? Keep all appointments with your doctor and the laboratory. Your doctor may order certain lab tests to check your body's response to levofloxacin. If you have diabetes, your doctor may ask you to check your blood sugar more often while taking levofloxacin. Before having any laboratory test, tell your doctor and the laboratory personnel that you are taking levofloxacin. Do not let anyone else take your medication. Your prescription is probably not refillable. If you still have symptoms of infection after you finish taking levofloxacin, call your doctor. It is important for you to keep a written list of all of the prescription and nonprescription ([id number]-rvghzay) medicines you are taking, as well as any products such as vitamins, minerals, or other dietary supplements. You should bring this list with you each time you visit a doctor or if you are admitted to a hospital. It is also important information to carry with you in case of emergencies. This report on medications is for your information only, and is not considered individual patient advice. Because of the changing nature of drug information, please consult your physician or pharmacist about specific clinical use. The [employer] represents that the information provided hereunder was formulated with a reasonable standard of care, and in conformity with professional standards in the field. The [employer] makes no representations or warranties, express or implied, including, but not limited to, any implied warranty of merchantability and/or fitness for a particular purpose, with respect to such information and specifically disclaims all such warranties. Users are advised that decisions regarding drug therapy are complex medical decisions requiring the independent, informed decision of an appropriate health care transitions nurse, and the information is provided for informational purposes only. The entire monograph for a drug should be reviewed for a thorough understanding of the drug's actions, uses and side effects. The [employer] does not endorse or recommend the use of any drug. The information is not a substitute for medical care. AHFS? Patient Medication Information?. ? Copyright, 2023. [employer]?, [address], [address], [place], [place]. All Rights Reserved. Duplication for commercial use must be authorized by [facility]. Selected Revisions: January 10, 2019. AHFS? Patient Medication Information?. ? Copyright, 2024 [facility]2025-03-25 16:39:48 Images from the original note were not included. [id number] Albuterol and Ipratropium Oral Inhalation Brand Name(s): Combivent? Metered Dose Inhaler, Combivent Respimat? Inhalation Lowden, DuoNeb? Inhalant Solution WHY is this medicine prescribed? The combination of albuterol and ipratropium is used to prevent wheezing, difficulty breathing, chest tightness, and coughing in people with chronic obstructive pulmonary disease (COPD; a group of diseases that affect the lungs and airways) such as chronic bronchitis (swelling of the air passages that lead to the lungs) and emphysema (damage to the air sacs in the lungs). Albuterol and ipratropium combination is used by people whose symptoms have not been controlled by a single inhaled medication. Albuterol and ipratropium are in a class of medications called bronchodilators. Albuterol and ipratropium combination works by relaxing and opening the air passages to the lungs to make breathing easier. HOW should this medicine be used? The combination of albuterol and ipratropium comes as a solution (liquid) to inhale by mouth using a nebulizer (machine that turns medication into a mist that can be inhaled) and as a spray to inhale by mouth using an inhaler. It is usually inhaled four times a day. Follow the directions on your prescription label carefully, and ask your doctor or pharmacist to explain any part you do not understand. Use albuterol and ipratropium exactly as directed. Do not use more or less of it or use it more often than prescribed by your doctor. Your doctor may tell you to use additional doses of albuterol and ipratropium inhalation if you experience symptoms such as wheezing, difficulty breathing, or chest tightness. Follow these directions carefully, and do not use extra doses of medication unless your doctor tells you that you should. Do not use more than 2 extra doses of the nebulizer solution per day. Do not use the inhalation spray more than six times in 24 hours. Call your doctor if your symptoms worsen, if you feel that albuterol and ipratropium inhalation no longer controls your symptoms, or if you find that you need to use extra doses of the medication more often. If you are using the inhaler, your medication will come in cartridges. Each cartridge of albuterol and ipratropium inhalation spray is designed to provide 120 inhalations. This is enough medication to last one month if you use one inhalation four times a day. After you use all 120 doses, the inhaler will lock and will not release any more medication, There is a dose indicator on the side of the inhaler that keeps track of how much medication is left in the cartridge. Check the dose indicator from time to time to see how much medication is left. When the pointer on the dose indicator enters the red area, the cartridge contains enough medication for 7 days and it is time to refill your prescription so that you will not run out of medication. Be careful not to get albuterol and ipratropium inhalation into your eyes. If you get albuterol and ipratropium in your eyes, you may develop narrow angle glaucoma (a serious eye condition that may cause loss of vision). If you already have narrow angle glaucoma, your condition may worsen. You may experience widened pupils (black circles in the center of the eyes), eye pain or redness, blurred vision, and vision changes such as seeing halos around lights, or seeing unusual colors Call your doctor if you get albuterol and ipratropium into your eyes or if you develop these symptoms. The inhaler that comes with albuterol and ipratropium spray is designed for use only with a cartridge of albuterol and ipratropium. Never use it to inhale any other medication, and do not use any other inhaler to inhale the medication in a cartridge of albuterol and ipratropium. Before you use albuterol and ipratropium inhalation for the first time, read the written instructions that come with the inhaler or nebulizer. Ask your doctor, pharmacist, or respiratory therapist to show you how to use it. Practice using the inhaler or nebulizer while he or she watches. To prepare the inhaler for use, follow these steps: ? Put the inhaler together before you use it for the first time. To start, take the inhaler out of the box, and keep the orange cap closed. Press the safety catch and pull off the clear base of the inhaler. Be careful not to touch the piercing element inside of the base ? The inhaler must be discarded three months after you put it together. Write this date on the label of the inhaler so you will not forget when you need to discard your inhaler. ? Take the cartridge out of the box and insert the narrow end into the inhaler. You can press the inhaler against a hard surface to be sure it is inserted correctly. Replace the clear plastic base on the inhaler. ? Hold the inhaler upright with the orange cap closed. Turn the clear base in the direction of the white arrows until it clicks. ? Flip the orange cap so that it is fully open. Point the inhaler toward the ground. ? Press the dose release button. Close the orange cap. ? Repeat steps 4-6 until you see a spray coming out of the inhaler. Then repeat these steps three more times. ? The inhaler is now primed and ready for use. You will not need to prime your inhaler again unless you do not use it for longer than 3 days. If you do not use your inhaler for more than 3 days, you will need to release one spray toward the ground before you start to use it again. If you do not use your inhaler for more than 21 days, you will need to follow steps 4-7 to prime the inhaler again. To inhale the spray using the inhaler, follow these steps: ? Hold the inhaler upright with the orange cap closed. Turn the clear base in the direction of the white arrows until it clicks. ? Open the orange cap. ? Breathe out slowly and completely. ? Place the mouthpiece in your mouth and close your lips around it. Be careful not to cover the air vents with your lips. ? Point the inhaler toward the back of your throat and breathe in slowly and deeply. ? While you are breathing in, press the dose release button. Continue to breathe in as the spray is released into your mouth. ? Hold your breath for 10 seconds or as long as you comfortably can. ? Take the inhaler out of your mouth and close the orange cap. Keep the cap closed until you are ready to use the inhaler again. To inhale the solution using a nebulizer, follow these steps: ? Remove one vial of medication from the foil pouch. Put the rest of the vials back into the pouch until you are ready to use them. ? Twist off the top of the vial and squeeze all of the liquid into the reservoir of the nebulizer. ? Connect the nebulizer reservoir to the mouthpiece or face mask. ? Connect the nebulizer reservoir to the compressor. ? Put the mouthpiece in your mouth or put on the face mask. Sit in a comfortable, upright position and turn on the compressor. ? Breathe in calmly, deeply, and evenly through your mouth for about 5 to 15 minutes until mist stops forming in the nebulizer chamber. Clean your inhaler or nebulizer regularly. Follow the rapier insertion loom fixer's directions carefully and ask your doctor or pharmacist if you have any questions about cleaning your inhaler or nebulizer. Are there OTHER USES for this medicine? This medication may be prescribed for other uses. Ask your doctor or pharmacist for more information. What SPECIAL PRECAUTIONS should I follow? Before using albuterol and ipratropium inhalation, ? tell your doctor and pharmacist if you are allergic to ipratropium (Atrovent), atropine (Atropen), albuterol (Proventil HFA, Ventolin HFA, Vospire ER), levalbuterol (Xoponex), any other medications, or any of the ingredients in albuterol and ipratropium solution or spray. Ask your pharmacist or check the rapier insertion loom fixer's patient information for a list of the ingredients. ? tell your doctor and pharmacist what prescription and nonprescription medications, vitamins, nutritional supplements and herbal products you are taking or plan to take while using albuterol and ipratropium inhalation. Your doctor may need to change the doses of your medications or monitor you carefully for side effects. . ? Tell your doctor or pharmacist if you are taking the following medications or have stopped taking them within the past two weeks: antidepressants [amitriptyline, amoxapine, clomipramine (Anafranil), desipramine (Norpramin), doxepin (Silenor), imipramine (Tofranil), nortriptyline (Pamelor), protriptyline (Vivactil), trimipramine (Surmontil)] or monoamine oxidase (MAO) inhibitors [isocarboxazid (Marplan), phenelzine (Nardil), tranylcypromine (Parnate), selegiline (Eldepryl, Emsam, Zelapar)]. ? The following nonprescription products may interact with albuterol and ipratropium inhalation: medications for colds. Be sure to let your doctor and pharmacist know that you are taking these medications before you start using albuterol and ipratropium inhalation. Do not start any of these medications while using albuterol and ipratropium inhalation without discussing with your healthcare provider. ? tell your doctor if you have or have ever had glaucoma (an eye condition); difficulty urinating; a blockage in your bladder; a prostate (a male reproductive gland) condition; seizures; hyperthyroidism (condition in which there is too much thyroid hormone in the body); high blood pressure; an irregular heartbeat; diabetes; or heart, liver, or kidney disease. ? tell your doctor if you are , plan to become , or are breast-feeding. If you become while using albuterol and ipratropium, call your doctor. ? if you are having surgery, including dental surgery, tell the doctor or dentist that you are using albuterol and ipratropium inhalation. ? you should know that albuterol and ipratropium inhalation sometimes causes wheezing and difficulty breathing immediately after it is inhaled. If this happens, call your doctor right away. Do not use albuterol and ipratropium inhalation again unless your doctor tells you that you should. What SPECIAL DIETARY instructions should I follow? Unless your doctor tells you otherwise, continue your normal diet. What should I do IF I FORGET to take a dose? Use the missed dose as soon as you remember it. However, if it is almost time for the next dose, skip the missed dose and continue your regular dosing schedule. Do not use a double dose to make up for a missed one. What SIDE EFFECTS can this medicine cause? Some side effects can be serious. If you experience any of the following symptoms, call your doctor immediately: ? fast or pounding heartbeat ? chest pain ? hives ? rash ? itching ? swelling of the eyes, face, lips, tongue, throat, hands, feet, ankles, or lower legs ? difficulty breathing or swallowing ? sore throat, fever, chills, and other signs of infection ? difficulty urinating Albuterol and ipratropium may cause other side effects. Call your doctor if you have any unusual problems while you are using this medication. What should I know about STORAGE and DISPOSAL of this medication? Keep this medication in the container it came in, tightly closed, and out of reach of children. Keep unused vials of nebulizer solution in the foil pouch until you are ready to use them. Store the medication at room temperature and away from excess heat and moisture (not in the bathroom). Do not allow the inhalation spray to freeze. Unneeded medications should be disposed of in special ways to ensure that pets, children, and other people cannot consume them. However, you should not flush this medication down the toilet. Instead, the best way to dispose of your medication is through a medicine take-back program. Talk to your pharmacist or contact your local garbage/recycling department to learn about take-back programs in your community. See the FDA's Safe Disposal of Medicines website (https://goo.gl/c4Rm4p) for more information if you do not have access to a take-back program. It is important to keep all medication out of sight and reach of children as many containers (such as weekly pill minders and those for eye drops, creams, patches, and inhalers) are not child-resistant and young children can open them easily. To protect young children from poisoning, always lock safety caps and immediately place the medication in a safe location - one that is up and away and out of their sight and reach. https://www.[employer].org What should I do in case of OVERDOSE? In case of overdose, call the poison control helpline at . Information is also available online at https://www.poisonhelp.org/help. If the victim has collapsed, had a seizure, has trouble breathing, or can't be awakened, immediately call emergency services at 363. Symptoms of overdose may include the following: ? chest pain ? fast heartbeat What OTHER INFORMATION should I know? Keep all appointments with your doctor. Do not let anyone else use your medication. Ask your pharmacist any questions you have about refilling your prescription. It is important for you to keep a written list of all of the prescription and nonprescription (cdgd-hrn-vwqylds) medicines you are taking, as well as any products such as vitamins, minerals, or other dietary supplements. You should bring this list with you each time you visit a doctor or if you are admitted to a hospital. It is also important information to carry with you in case of emergencies. This report on medications is for your information only, and is not considered individual patient advice. Because of the changing nature of drug information, please consult your physician or pharmacist about specific clinical use. [employer] [place] [employer] represents that the information provided hereunder was formulated with a reasonable standard of care, and in conformity with professional standards in the field. [employer] [place] [employer] makes no representations or warranties, express or implied, including, but not limited to, any implied warranty of merchantability and/or fitness for a particular purpose, with respect to such information and specifically disclaims all such warranties. Users are advised that decisions regarding drug therapy are complex medical decisions requiring the independent, informed decision of an appropriate health care transitions nurse, and the information is provided for informational purposes only. The entire monograph for a drug should be reviewed for a thorough understanding of the drug's actions, uses and side effects. The [place] [employer] does not endorse or recommend the use of any drug. The information is not a substitute for medical care. AHFS? Patient Medication Information?. ? Copyright, 2023. [employer] [place] [employer]?, [address], [address], [place], [place]. All Rights Reserved. Duplication for commercial use must be authorized by [facility]. Selected Revisions: April 12, 2023. AHFS? Patient Medication Information?. ? Copyright, 2024 Susan [id number] 16:39:29 Images from the original note were not included. [id number] Heparin Injection Brand Name(s): Lipo-Hepin?, Liquaemin?, Panheparin?; also available generically WHY is this medicine prescribed? Heparin is used to prevent blood clots from forming in people who have certain medical conditions or who are undergoing certain medical procedures that increase the chance that clots will form. Heparin is also used to stop the growth of clots that have already formed in the blood vessels, but it cannot be used to decrease the size of clots that have already formed. Heparin is also used in small amounts to prevent blood clots from forming in catheters (small plastic tubes through which medication can be administered or blood drawn) that are left in veins over a period of time. Heparin is in a class of medications called anticoagulants ('blood thinners'). It works by decreasing the clotting ability of the blood. HOW should this medicine be used? Heparin comes as a solution (liquid) to be injected intravenously (into a vein) or deeply under the skin and as a dilute (less concentrated) solution to be injected into intravenous catheters. Heparin should not be injected into a muscle. Heparin is sometimes injected one to six times a day and sometimes given as a slow, continuous injection into the vein. When heparin is used to prevent blood clots from forming in intravenous catheters, it is usually used when the catheter is first put in place, and every time that blood is drawn out of the catheter or medication is given through the catheter. Heparin may be given to you by a nurse or other healthcare provider, or you may be told to inject the medication by yourself at home. If you will be injecting heparin yourself, a healthcare provider will show you how to inject the medication. Ask your doctor, nurse, or pharmacist if you do not understand these directions or have any questions about where on your body you should inject heparin, how to give the injection, or how to dispose of used needles and syringes after you inject the medication. If you will be injecting heparin yourself, follow the directions on your prescription label carefully, and ask your doctor or pharmacist to explain any part you do not understand. Use heparin exactly as directed. Do not use more or less of it or use it more often than prescribed by your doctor. Heparin solution comes in different strengths, and using the wrong strength may cause serious problems. Before giving an injection of heparin, check the package label to make sure it is the strength of heparin solution that your doctor prescribed for you. If the strength of heparin is not correct do not use the heparin and call your doctor or pharmacist right away. Your doctor may increase or decrease your dose during your heparin treatment. If you will be injecting heparin yourself, be sure you know how much medication you should use. Are there OTHER USES for this medicine? Heparin is also sometimes used alone or in combination with aspirin to prevent loss and other problems in women who have certain medical conditions and who have experienced these problems in their earlier pregnancies. Talk to your doctor or pharmacist about the risks of using this medication to treat your condition. This medication may be prescribed for other uses; ask your doctor or pharmacist for more information. What SPECIAL PRECAUTIONS should I follow? Before using heparin, ? tell your doctor and pharmacist if you are allergic to heparin, any other medications, beef products,pork products, or any of the ingredients in heparin injection. Ask your doctor or pharmacist for a list of the ingredients. ? tell your doctor and pharmacist what prescription and nonprescription medications, vitamins, nutritional supplements, and herbal products you are taking or plan to take while using heparin. Your doctor may need to change the doses of your medications or monitor you carefully for side effects. ? the following nonprescription products may interact with heparin: aspirin and nonsteroidal anti-inflammatory drugs (NSAIDS) such as ibuprofen (Advil, Motrin, others) and naproxen (Aleve); nicotine; allergy medications (diphenhydramine, loratadine, fexofenadine, chlorpheniramine or cetirizine). Be sure to let your doctor and pharmacist know that you are taking these medications before you start using heparin. Do not start any of these medications while using heparin without discussing with your healthcare provider. ? tell your doctor if you have a low level of platelets (type of blood cells needed for normal clotting) in your blood and if you have heavy bleeding that cannot be stopped anywhere in your body. Your doctor may tell you not to use heparin. ? tell your doctor if you are currently experiencing your menstrual period; if you have a fever or an infection; and if you have recently had a spinal tap (removal of a small amount of the fluid that bathes the spinal cord to test for infection or other problems), spinal anesthesia (administration of pain medication in the area around the spine), surgery, especially involving the brain, spinal cord or eye, or a heart attack. Also tell your doctor if you have or have ever had a bleeding disorder such as hemophilia (condition in which the blood does not clot normally), antithrombin III deficiency (condition that causes blood clots to form), blood clots in the legs, lungs, or anywhere in the body, unusual bruising or purple spots under the skin, cancer, ulcers in the stomach or intestine, a tube that drains the stomach or intestine, high blood pressure, or liver disease. ? tell your doctor if you are , plan to become , or are breast-feeding. If you become while using heparin, call your doctor. ? if you are having surgery, including dental surgery, tell the doctor or dentist that you are using heparin. ? tell your doctor if you smoke or use tobacco products and if you stop smoking at any time during your treatment with heparin. Smoking may decrease the effectiveness of this medication. What SPECIAL DIETARY instructions should I follow? Unless your doctor tells you otherwise, continue your normal diet. What should I do IF I FORGET to take a dose? If you will be injecting heparin yourself at home, talk to your doctor about what you should do if you forget to inject a dose. What SIDE EFFECTS can this medicine cause? Some side effects can be serious. If you experience any of these symptoms, call your doctor immediately: ? unusual bruising or bleeding ? vomit that is bloody or looks like coffee grounds ? stool that contains bright red blood or is black and tarry ? blood in urine ? excessive tiredness ? nausea ? vomiting ? chest pain, pressure, or squeezing discomfort ? discomfort in the arms, shoulder, jaw, neck, or back ? coughing up blood ? excessive sweating ? sudden severe headache ? lightheadedness or fainting ? sudden loss of balance or coordination ? sudden trouble walking ? sudden numbness or weakness of the face, arm or leg, especially on one side of the body ? sudden confusion, or difficulty speaking or understanding speech ? difficulty seeing in one or both eyes ? purple or black skin discoloration ? pain and blue or dark discoloration in the arms or legs ? itching and burning, especially on the bottoms of the feet ? chills ? fever ? hives ? rash ? wheezing ? shortness of breath ? difficulty breathing or swallowing ? hoarseness ? painful erection that lasts for hours Heparin may cause osteoporosis (condition in which the bones become weak and may break easily), especially in people who use the medication for a long time. Talk to your doctor about the risks of using this medication. Heparin may cause other side effects. Call your doctor if you have any unusual problems while using this medication. What should I know about STORAGE and DISPOSAL of this medication? If you will be injecting heparin at home, your healthcare provider will tell you how to store the medication. Follow these directions carefully. Be sure to keep this medication in the container it came in, tightly closed, and out of reach of children. Store it at room temperature and away from excess heat and moisture (not in the bathroom). Do not freeze heparin. It is important to keep all medication out of sight and reach of children as many containers (such as weekly pill minders and those for eye drops, creams, patches, and inhalers) are not child-resistant and young children can open them easily. To protect young children from poisoning, always lock safety caps and immediately place the medication in a safe location - one that is up and away and out of their sight and reach. https://www.[employer].org Unneeded medications should be disposed of in special ways to ensure that pets, children, and other people cannot consume them. However, you should not flush this medication down the toilet. Instead, the best way to dispose of your medication is through a medicine take-back program. Talk to your pharmacist or contact your local garbage/recycling department to learn about take-back programs in your community. See the FDA's Safe Disposal of Medicines website (https://goo.gl/c4Rm4p) for more information if you do not have access to a take-back program. What should I do in case of OVERDOSE? In case of overdose, call the poison control helpline at . Information is also available online at https://www.poisonhelp.org/help. If the victim has collapsed, had a seizure, has trouble breathing, or can't be awakened, immediately call emergency services at 551. Symptoms of overdose may include: ? nosebleed ? blood in urine ? black, tarry stools ? easy bruising ? unusual bleeding ? red blood in stools ? vomit that is bloody or looks like coffee grounds What OTHER INFORMATION should I know? Keep all appointments with your doctor and the laboratory. Your doctor will order certain lab tests to check your body's response to heparin. Your doctor may ask you to check your stool for blood using an at-home test. Before having any laboratory test, tell your doctor and the laboratory personnel that you are using heparin. Do not let anyone else use your medication. Ask your pharmacist any questions you have about refilling your prescription. It is important for you to keep a written list of all of the prescription and nonprescription (eyhi-rsg-bviqiex) medicines you are taking, as well as any products such as vitamins, minerals, or other dietary supplements. You should bring this list with you each time you visit a doctor or if you are admitted to a hospital. It is also important information to carry with you in case of emergencies. This report on medications is for your information only, and is not considered individual patient advice. Because of the changing nature of drug information, please consult your physician or pharmacist about specific clinical use. [employer] [place] [employer] represents that the information provided hereunder was formulated with a reasonable standard of care, and in conformity with professional standards in the field. [employer] [place] [employer] makes no representations or warranties, express or implied, including, but not limited to, any implied warranty of merchantability and/or fitness for a particular purpose, with respect to such information and specifically disclaims all such warranties. Users are advised that decisions regarding drug therapy are complex medical decisions requiring the independent, informed decision of an appropriate health care transitions nurse, and the information is provided for informational purposes only. The entire monograph for a drug should be reviewed for a thorough understanding of the drug's actions, uses and side effects. [employer] [place] [employer] does not endorse or recommend the use of any drug. The information is not a substitute for medical care. AHFS? Patient Medication Information?. ? Copyright, 2023. [employer] [place] [employer]?, [address], [address], [place], [place]. All Rights Reserved. Duplication for commercial use must be authorized by [facility]. Selected Revisions: March 13, 2017. AHFS? Patient Medication Information?. ? Copyright, 2024 Susan [id number] 16:38:36 Images from the original note were not included. [id number] Guaifenesin Brand Name(s): Adult Tussin?, Air Power?, Bronchoril?, Chest Congestion?, Childrens Mucinex?, Childrens Mucus Relief?, Cough Out?, Diabetic Siltussin BOWSER-Na?, Diabetic Tussin Expectorant?, Diabetic Tussin Mucus Relief?, Equaline Tussin?, Equate Tussin?, [facility] Tussin?, Good Sense Tussin?, Guiatuss?, Iophen NR?, Kids-EEZE?, Leader Adult Tussin?, Leader Mucus Relief?, Liqufruta?, Little Remedies Little Colds Mucus Relief Expectorant Melt Aways?, MucaPlex?, Mucinex?, Mucinex for Kids?, Mucus Relief?, Mucus Relief Chest?, ORGAN-I NR?, Premier Value Chest Congestion Relief?, Q-Tussin?, Refenesen? Chest Congestion Relief, Robitussin? Chest Congestion, Scot-Tussin? Expectorant SF Cough, [facility] Tussin DM?, Siltussin BOWSER?, Siltussin SA?, Smart Sense Tussin?, Sunmark Tussin?, Topcare Mucus Relief?, Topcare Tussin?, Tussin?, Tussin Chest?, Tussin Chest Congestion?, Tussin Original?, Up and Up Childrens Mucus Relief?, Vicks? DayQuil?, Wal Tussin?, Adult Tussin DM? (as a combination product containing Dextromethorphan, Guaifenesin), Aldex? (as a combination product containing Guaifenesin, Pseudoephedrine), Biocotron? (as a combination product containing Dextromethorphan, Guaifenesin), Biospec? (as a combination product containing Dextromethorphan, Guaifenesin), Bisolvine? (as a combination product containing Dextromethorphan, Guaifenesin), [facility] Chest Congestion Relief? (as a combination product containing Dextromethorphan, Guaifenesin), Certuss? (as a combination product containing Chlophedianol, Guaifenesin), Cheratussin AC? (as a combination product containing Codeine, Guaifenesin), chest congestion? (as a combination product containing Dextromethorphan, Guaifenesin), Childrens Mucus Relief? (as a combination product containing Dextromethorphan, Guaifenesin), Childrens Mucus Relief Fenton? (as a combination product containing Dextromethorphan, Guaifenesin), Childrens Mucus Relief Cough Fenton? (as a combination product containing Dextromethorphan, Guaifenesin), Childrens Relief Fenton? (as a combination product containing Dextromethorphan, Guaifenesin), Chlo Tuss? (as a combination product containing Chlophedianol, Guaifenesin), Codar? (as a combination product containing Codeine, Guaifenesin), Cough? (as a combination product containing Dextromethorphan, Guaifenesin), Cough Syrup? (as a combination product containing Dextromethorphan, Guaifenesin), CounterAct? (as a combination product containing Dextromethorphan, Guaifenesin), [facility] Chest Congestion Relief? (as a combination product containing Dextromethorphan, Guaifenesin), Dex-Tuss? (as a combination product containing Codeine, Guaifenesin), Critical access hospital Childrens Mucus Relief Cough? (as a combination product containing Dextromethorphan, Guaifenesin), Health Tussin DM? (as a combination product containing Dextromethorphan, Guaifenesin), Diabetic Tussin DM? (as a combination product containing Dextromethorphan, Guaifenesin), Diabetic Tussin DM Maximum Strength? (as a combination product containing Dextromethorphan, Guaifenesin), Donatussin Drops? (as a combination product containing Guaifenesin, Phenylephrine), Double Tussin Intense Cough Reliever? (as a combination product containing Dextromethorphan, Guaifenesin), Equaline Adult Tussin? (as a combination product containing Dextromethorphan, Guaifenesin), Equaline Tussin Cough and Chest Congestion? (as a combination product containing Dextromethorphan, Guaifenesin), Equate Tussin DM? (as a combination product containing Dextromethorphan, Guaifenesin), Expectorant Plus Cough Relief? (as a combination product containing Dextromethorphan, Guaifenesin), FormuCare Cough Syrup DM? (as a combination product containing Dextromethorphan, Guaifenesin), Freds Chest Congestion Relief? (as a combination product containing Dextromethorphan, Guaifenesin), [facility] Adult Tussin? (as a combination product containing Dextromethorphan, Guaifenesin), [facility] Tussin DM? (as a combination product containing Dextromethorphan, Guaifenesin), [facility] Tussin DM Max? (as a combination product containing Dextromethorphan, Guaifenesin), Good Sense Childrens Mucus Relief Cough? (as a combination product containing Dextromethorphan, Guaifenesin), Good Sense tussin? (as a combination product containing Dextromethorphan, Guaifenesin), Good Sense Tussin DM? (as a combination product containing Dextromethorphan, Guaifenesin), Guaiasorb DM? (as a combination product containing Dextromethorphan, Guaifenesin), Guaiatussin AC? (as a combination product containing Codeine, Guaifenesin), Guiatuss DM? (as a combination product containing Dextromethorphan, Guaifenesin), Healthy Accents Tussin DM? (as a combination product containing Dextromethorphan, Guaifenesin), Iophen C NR? (as a combination product containing Codeine, Guaifenesin), Iophen DM NR? (as a combination product containing Dextromethorphan, Guaifenesin), Leader Adult Tussin DM? (as a combination product containing Dextromethorphan, Guaifenesin), Leader Childrens Mucus Relief Cough? (as a combination product containing Dextromethorphan, Guaifenesin), Leader Intense Cough Reliever? (as a combination product containing Dextromethorphan, Guaifenesin), Leader Tussin DM Max? (as a combination product containing Dextromethorphan, Guaifenesin), Lusair? (as a combination product containing Guaifenesin, Phenylephrine), Mucinex Fast-Max? (as a combination product containing Dextromethorphan, Guaifenesin), Mucus Relief Cough? (as a combination product containing Dextromethorphan, Guaifenesin), Mucus Relief DM? (as a combination product containing Dextromethorphan, Guaifenesin), Nature Fusion? (as a combination product containing Dextromethorphan, Guaifenesin), PediaCare Childrens Cough and Congestion? (as a combination product containing Dextromethorphan, Guaifenesin), Premier Value Chest Congestion and Cough Relief? (as a combination product containing Dextromethorphan, Guaifenesin), Primatene? (as a combination product containing Ephedrine, Guaifenesin), Q Tussin DM? (as a combination product containing Dextromethorphan, Guaifenesin), RelCof-C? (as a combination product containing Codeine, Guaifenesin), Robafen DM Max? (as a combination product containing Dextromethorphan, Guaifenesin), Robitussin Cough and Chest Congestion DM? (as a combination product containing Dextromethorphan, Guaifenesin), Safetussin? (as a combination product containing Dextromethorphan, Guaifenesin), [facility] DMExp? (as a combination product containing Dextromethorphan, Guaifenesin), Smart Sense Mucus Relief Cough? (as a combination product containing Dextromethorphan, Guaifenesin), Smart Sense tussin dm max? (as a combination product containing Dextromethorphan, Guaifenesin), Sun Richard Mucus Relief Cough? (as a combination product containing Dextromethorphan, Guaifenesin), Sun Richard Tussin DM? (as a combination product containing Dextromethorphan, Guaifenesin), Sunmark Tussin DM? (as a combination product containing Dextromethorphan, Guaifenesin), Topcare Mucus Relief? (as a combination product containing Dextromethorphan, Guaifenesin), Topcare tussin dm? (as a combination product containing Dextromethorphan, Guaifenesin), Topcare Tussin DM Max? (as a combination product containing Dextromethorphan, Guaifenesin), Tussin Cough DM? (as a combination product containing Dextromethorphan, Guaifenesin), Tussin DM? (as a combination product containing Dextromethorphan, Guaifenesin), Up and Up Adult Cough Formula DM? (as a combination product containing Dextromethorphan, Guaifenesin), Up and Up Childrens Mucus Relief and Cough? (as a combination product containing Dextromethorphan, Guaifenesin), Vanacof? (as a combination product containing Chlophedianol, Guaifenesin), Vicks? DayQuil? (as a combination product containing Dextromethorphan, Guaifenesin), Wal Tussin DM? (as a combination product containing Dextromethorphan, Guaifenesin), Z-Cof 1? (as a combination product containing dextromethorphan and Guaifenesin, Pseudoephedrine), Zicam? (as a combination product containing acetaminophen and Dextromethorphan, Guaifenesin), Zodryl DEC? (as a combination product containing pseudoephedrine and Codeine, Guaifenesin), Zyncof? (as a combination product containing Dextromethorphan, Guaifenesin); also available generically WHY is this medicine prescribed? Guaifenesin is used to relieve chest congestion. Guaifenesin may help control symptoms but does not treat the cause of symptoms or speed recovery. Guaifenesin is in a class of medications called expectorants. It works by thinning the mucus in the air passages to make it easier to cough up the mucus and clear the airways. HOW should this medicine be used? Guaifenesin comes as a tablet, a capsule, an extended-release (long-acting) tablet, dissolving granules, and a syrup (liquid) to take by mouth. The tablets, capsules, dissolving granules, and syrup are usually taken with or without food every 4 hours as needed. The extended-release tablet is usually taken with or without food every 12 hours. Follow the directions on the package or on your prescription label carefully, and ask your doctor or pharmacist to explain any part you do not understand. Take guaifenesin exactly as directed. Do not take more or less of it or take it more often than prescribed by your doctor. Guaifenesin comes alone and in combination with antihistamines, cough suppressants, and decongestants. Ask your doctor or pharmacist for advice on which product is best for your symptoms. Check nonprescription cough and cold product labels carefully before using two or more products at the same time. These products may contain the same active ingredient(s) and taking them together could cause you to receive an overdose. This is especially important if you will be giving cough and cold medications to a child. Nonprescription cough and cold combination products, including products that contain guaifenesin, can cause serious side effects or in young children. Do not give these products to children younger than 4 years of age. If you give these products to children 4 to 11 years of age, use caution and follow the package directions carefully. If you are giving guaifenesin or a combination product that contains guaifenesin to a child, read the package label carefully to be sure that it is the right product for a child of that age. Do not give guaifenesin products that are made for adults to children. Before you give a guaifenesin product to a child, check the package label to find out how much medication the child should receive. Give the dose that matches the child's age on the chart. Ask the child's doctor if you don't know how much medication to give the child. If you are taking the liquid, do not use a household spoon to measure your dose. Use the measuring spoon or cup that came with the medication or use a spoon made especially for measuring medication. Swallow the extended-release tablets whole with a full glass of water. Do not break, crush, or chew them. If you are taking the dissolving granules, empty the entire contents of the packet onto your tongue and swallow. If your symptoms do not improve within 7 days or if you also have a high fever, a rash, or a headache that does not go away, call your doctor. Are there OTHER USES for this medicine? This medication is sometimes prescribed for other uses; ask your doctor or pharmacist for more information. What SPECIAL PRECAUTIONS should I follow? Before taking guaifenesin, ? tell your doctor and pharmacist if you are allergic to guaifenesin, any other medications, or any of the ingredients in the guaifenesin product you plan to take. Check the package label for a list of the ingredients. ? tell your doctor and pharmacist what prescription and nonprescription medications, vitamins, nutritional supplements, and herbal products you are taking or plan to take. ? tell your doctor if you smoke and if you have or have ever had a cough that occurs with a large amount of phlegm (mucus) or if you have or have ever had a breathing problem such as asthma, emphysema, or chronic bronchitis. If you will be taking the dissolving granules, tell your doctor if you are on a low magnesium diet or if you have kidney disease. ? tell your doctor if you are , plan to become , or are breast-feeding. If you become while taking guaifenesin, call your doctor. ? if you have phenylketonuria (PKU, a inherited condition in which a special diet must be followed to prevent damage to your brain that can cause severe intellectual disability), you should know that the dissolving granules may be sweetened with aspartame, a source of phenylalanine. What SPECIAL DIETARY instructions should I follow? Drink plenty of fluids while you are taking this medication. Unless your doctor tells you otherwise, continue your normal diet. What should I do IF I FORGET to take a dose? Guaifenesin is usually taken as needed. If your doctor has told you to take guaifenesin regularly, take the missed dose as soon as you remember it. However, if it is almost time for the next dose, skip the missed dose and continue your regular dosing schedule. Do not take a double dose to make up for a missed one. What SIDE EFFECTS can this medicine cause? Guaifenesin may cause side effects. Tell your doctor if any of these symptoms are severe or do not go away: ? headache ? nausea ? vomiting Guaifenesin may cause other side effects. Call your doctor if you have any unusual problems while you are taking this medication. What should I know about STORAGE and DISPOSAL of this medication? Keep this medication in the container it came in, tightly closed, and out of reach of children. Store it at room temperature and away from excess heat and moisture (not in the bathroom). Unneeded medications should be disposed of in special ways to ensure that pets, children, and other people cannot consume them. However, you should not flush this medication down the toilet. Instead, the best way to dispose of your medication is through a medicine take-back program. Talk to your pharmacist or contact your local garbage/recycling department to learn about take-back programs in your community. See the FDA's Safe Disposal of Medicines website (https://goo.gl/c4Rm4p) for more information if you do not have access to a take-back program. It is important to keep all medication out of sight and reach of children as many containers (such as weekly pill minders and those for eye drops, creams, patches, and inhalers) are not child-resistant and young children can open them easily. To protect young children from poisoning, always lock safety caps and immediately place the medication in a safe location - one that is up and away and out of their sight and reach. https://www.upandaway.org What should I do in case of OVERDOSE? In case of overdose, call the poison control helpline at . Information is also available online at https://www.poisonhelp.org/help. If the victim has collapsed, had a seizure, has trouble breathing, or can't be awakened, immediately call emergency services at 100. What OTHER INFORMATION should I know? Ask your pharmacist any questions you have about guaifenesin. It is important for you to keep a written list of all of the prescription and nonprescription ([id number]) medicines you are taking, as well as any products such as vitamins, minerals, or other dietary supplements. You should bring this list with you each time you visit a doctor or if you are admitted to a hospital. It is also important information to carry with you in case of emergencies. This report on medications is for your information only, and is not considered individual patient advice. Because of the changing nature of drug information, please consult your physician or pharmacist about specific clinical use. The [employer] represents that the information provided hereunder was formulated with a reasonable standard of care, and in conformity with professional standards in the field. The [employer] makes no representations or warranties, express or implied, including, but not limited to, any implied warranty of merchantability and/or fitness for a particular purpose, with respect to such information and specifically disclaims all such warranties. Users are advised that decisions regarding drug therapy are complex medical decisions requiring the independent, informed decision of an appropriate health care transitions nurse, and the information is provided for informational purposes only. The entire monograph for a drug should be reviewed for a thorough understanding of the drug's actions, uses and side effects. The [employer] does not endorse or recommend the use of any drug. The information is not a substitute for medical care. AHFS? Patient Medication Information?. ? Copyright, 2023. [employer]?, [address], [address], [place], [place]. All Rights Reserved. Duplication for commercial use must be authorized by [facility]. Selected Revisions: July 13, 2021. AHFS? Patient Medication Information?. ? Copyright, 2024 [id number] 16:38:22 Images from the original note were not included. [id number] Acetaminophen Brand Name(s): Actamin?, Feverall?, Panadol?, Tempra Quicklets?, Tylenol?, Dayquil? (as a combination product containing Acetaminophen, Dextromethorphan, Pseudoephedrine), NyQuil Cold/Flu Relief? (as a combination product containing Acetaminophen, Dextromethorphan, Doxylamine), Percocet? (as a combination product containing Acetaminophen, Oxycodone) APAP, U-kroiur-xcsb-aminophenol, Paracetamol IMPORTANT WARNING: Taking too much acetaminophen can cause liver damage, sometimes serious enough to require liver transplantation or cause . You might accidentally take too much acetaminophen if you do not follow the directions on the prescription or package label carefully, or if you take more than one product that contains acetaminophen. To be sure that you take acetaminophen safely, you should ? not take more than one product that contains acetaminophen at a time. Read the labels of all the prescription and nonprescription medications you are taking to see if they contain acetaminophen. Be aware that abbreviations such as APAP, AC, Acetaminophen, Acetaminoph, Acetaminop, Acetamin, or Acetam. may be written on the label in place of the word acetaminophen. Ask your doctor or pharmacist if you don't know if a medication that you are taking contains acetaminophen. ? take acetaminophen exactly as directed on the prescription or package label. Do not take more acetaminophen or take it more often than directed, even if you still have fever or pain. Ask your doctor or pharmacist if you do not know how much medication to take or how often to take your medication. Call your doctor if you still have pain or fever after taking your medication as directed. ? be aware that you should not take more than 4000 mg of acetaminophen per day. If you need to take more than one product that contains acetaminophen, it may be difficult for you to calculate the total amount of acetaminophen you are taking. Ask your doctor or pharmacist to help you. ? tell your doctor if you have or have ever had liver disease. ? not take acetaminophen if you drink three or more alcoholic drinks every day. Talk to your doctor about the safe use of alcohol while you are taking acetaminophen. ? stop taking your medication and call your doctor right away if you think you have taken too much acetaminophen, even if you feel well. Talk to your pharmacist or doctor if you have questions about the safe use of acetaminophen or acetaminophen-containing products. WHY is this medicine prescribed? Acetaminophen is used to relieve mild to moderate pain from headaches, muscle aches, menstrual periods, colds and sore throats, toothaches, backaches, reactions to vaccinations (shots), and to reduce fever. Acetaminophen may also be used to relieve the pain of osteoarthritis (arthritis caused by the breakdown of the lining of the joints). Acetaminophen is in a class of medications called analgesics (pain relievers) and antipyretics (fever reducers). It works by changing the way the body senses pain and by cooling the body. HOW should this medicine be used? Acetaminophen comes as a tablet, chewable tablet, capsule, suspension or solution (liquid), extended-release (long-acting) tablet, and orally disintegrating tablet (tablet that dissolves quickly in the mouth), to take by mouth, with or without food. Acetaminophen is available without a prescription, but your doctor may prescribe acetaminophen to treat certain conditions. Follow the directions on the package or prescription label carefully, and ask your doctor or pharmacist to explain any part you do not understand. If you are giving acetaminophen to your child, read the package label carefully to make sure that it is the right product for the age of the child. Do not give children acetaminophen products that are made for adults. Some products for adults and older children may contain too much acetaminophen for a younger child. Check the package label to find out how much medication the child needs. If you know how much your child weighs, give the dose that matches that weight on the chart. If you don't know your child's weight, give the dose that matches your child's age. Ask your child's doctor if you don't know how much medication to give your child. Acetaminophen comes in combination with other medications to treat cough and cold symptoms. Ask your doctor or pharmacist for advice on which product is best for your symptoms. Check nonprescription cough and cold product labels carefully before using two or more products at the same time. These products may contain the same active ingredient(s) and taking them together could cause you to receive an overdose. This is especially important if you will be giving cough and cold medications to a child. Swallow the extended-release tablets whole; do not split, chew, crush, or dissolve them. Place the orally disintegrating tablet ('Meltaways') in your mouth and allow it to dissolve, or chew it before swallowing. Shake the suspension well before each use to mix the medication evenly. Always use the measuring cup or syringe provided by the rapier insertion loom fixer to measure each dose of the solution or suspension. Do not switch dosing devices between different products; always use the device that comes in the product packaging. Stop taking acetaminophen and call your doctor if your symptoms get worse, you develop new or unexpected symptoms, including redness or swelling, your pain lasts for more than 10 days, or your fever gets worse or lasts more than 3 days. Also stop giving acetaminophen to your child and call your child's doctor if your child develops new symptoms, including redness or swelling, or if your child's pain lasts for longer than 5 days, or if a fever gets worse or lasts longer than 3 days. Do not give acetaminophen to a child who has a sore throat that is severe or does not go away, or that occurs along with fever, headache, rash, nausea, or vomiting. Call the child's doctor right away, because these symptoms may be signs of a more serious condition. Are there OTHER USES for this medicine? Acetaminophen may also be used in combination with aspirin and caffeine to relieve the pain associated with migraine headache. This medication is sometimes prescribed for other uses; ask your doctor or pharmacist for more information. What SPECIAL PRECAUTIONS should I follow? Before taking acetaminophen, ? tell your doctor and pharmacist if you are allergic to acetaminophen, any other medications, or any of the ingredients in the product. Ask your pharmacist or check the label on the package for a list of ingredients. ? tell your doctor and pharmacist what prescription and nonprescription medications, vitamins, nutritional supplements, or herbal products you are taking or plan to take while taking acetaminophen. Your doctor may need to change the doses of your medications or monitor you carefully for side effects. ? The following nonprescription products may interact with acetaminophen: medications for pain, coughs, fever, and colds. Be sure to let your doctor and pharmacist know that you are taking these medications before you start taking acetaminophen. Do not start any of these medications while taking acetaminophen without discussing with your healthcare provider. ? tell your doctor if you have ever developed a rash after taking acetaminophen. ? tell your doctor if you are , plan to become , or are breast-feeding. If you become while taking acetaminophen, call your doctor. ? if you drink three or more alcoholic beverages every day, do not take acetaminophen. Ask your doctor or pharmacist about the safe use of alcoholic beverages while taking acetaminophen. ? you should know that combination acetaminophen products for cough and colds that contain nasal decongestants, antihistamines, cough suppressants, and expectorants should not be used in children younger than 2 years of age. Use of these medications in young children can cause serious and life-threatening effects or . In children 2 through 11 years of age, combination cough and cold products should be used carefully and only according to the directions on the label. ? if you have phenylketonuria (PKU, an inherited condition in which a special diet must be followed to prevent damage to your brain that can cause severe intellectual disability), you should know that some brands of acetaminophen chewable tablets may be sweetened with aspartame, a source of phenylalanine. What SPECIAL DIETARY instructions should I follow? Unless your doctor tells you otherwise, continue your normal diet. What should I do IF I FORGET to take a dose? This medication is usually taken as needed. If your doctor has told you to take acetaminophen regularly, take the missed dose as soon as you remember it. However, if it is almost time for the next dose, skip the missed dose and continue your regular dosing schedule. Do not take a double dose to make up for a missed one. What SIDE EFFECTS can this medicine cause? Some side effects can be serious. If you experience any of the following symptoms, stop taking acetaminophen and call your doctor immediately or get emergency medical attention: ? red, peeling or blistering skin ? rash ? hives ? itching ? swelling of the face, throat, tongue, lips, eyes, hands, feet, ankles, or lower legs ? hoarseness ? difficulty breathing or swallowing Acetaminophen may cause other side effects. Call your doctor if you have any unusual problems while you are taking this medication. If you experience a serious side effect, you or your doctor may send a report to the Food and Drug Administration's (FDA) MedWatch Adverse Event Reporting program online (https://www.fda.gov/Safety/MedWatch) or by phone ( ). What should I know about STORAGE and DISPOSAL of this medication? Keep this medication in the container it came in, tightly closed, and out of reach of children. Store it at room temperature and away from excess heat and moisture (not in the bathroom). It is important to keep all medication out of sight and reach of children as many containers (such as weekly pill minders and those for eye drops, creams, patches, and inhalers) are not child-resistant and young children can open them easily. To protect young children from poisoning, always lock safety caps and immediately place the medication in a safe location - one that is up and away and out of their sight and reach. https://www.upandaway.org Unneeded medications should be disposed of in special ways to ensure that pets, children, and other people cannot consume them. However, you should not flush this medication down the toilet. Instead, the best way to dispose of your medication is through a medicine take-back program. Talk to your pharmacist or contact your local garbage/recycling department to learn about take-back programs in your community. See the FDA's Safe Disposal of Medicines website (https://goo.gl/c4Rm4p) for more information if you do not have access to a take-back program. What should I do in case of OVERDOSE? In case of overdose, call the poison control helpline at . Information is also available online at https://www.poisonhelp.org/help. If the victim has collapsed, had a seizure, has trouble breathing, or can't be awakened, immediately call emergency services at 757. If someone takes more than the recommended dose of acetaminophen, get medical help immediately, even if the person does not have any symptoms. Symptoms of overdose may include the following: ? nausea ? vomiting ? loss of appetite ? sweating ? extreme tiredness ? unusual bleeding or bruising ? pain in the upper right part of the stomach ? yellowing of the skin or eyes ? flu-like symptoms What OTHER INFORMATION should I know? Before having any laboratory test, tell your doctor and the laboratory personnel that you are taking acetaminophen. Ask your pharmacist any questions you have about acetaminophen. It is important for you to keep a written list of all of the prescription and nonprescription (yxla-rwa-ytvsgyb) medicines you are taking, as well as any products such as vitamins, minerals, or other dietary supplements. You should bring this list with you each time you visit a doctor or if you are admitted to a hospital. It is also important information to carry with you in case of emergencies. This report on medications is for your information only, and is not considered individual patient advice. Because of the changing nature of drug information, please consult your physician or pharmacist about specific clinical use. The [place] [employer] represents that the information provided hereunder was formulated with a reasonable standard of care, and in conformity with professional standards in the field. The [place] [employer] makes no representations or warranties, express or implied, including, but not limited to, any implied warranty of merchantability and/or fitness for a particular purpose, with respect to such information and specifically disclaims all such warranties. Users are advised that decisions regarding drug therapy are complex medical decisions requiring the independent, informed decision of an appropriate health care transitions nurse, and the information is provided for informational purposes only. The entire monograph for a drug should be reviewed for a thorough understanding of the drug's actions, uses and side effects. The [place] [employer] does not endorse or recommend the use of any drug. The information is not a substitute for medical care. AHFS? Patient Medication Information?. ? Copyright, 2023. [employer] [place] [employer]?, [address], [address], [place], [place]. All Rights Reserved. Duplication for commercial use must be authorized by [facility]. Selected Revisions: March 13, 2023. AHFS? Patient Medication Information?. ? Copyright, 2024 [facility] [id number] 16:37:54 Images from the original note were not included. 14 Heart-Healthy Diet Five Tips to Better Health A heart-healthy diet is designed to protect your heart from further damage through long-term diet and lifestyle changes. Along with your medication and exercise, a heart-healthy diet can help reduce your risk for heart-related problems. The heart-healthy meal plan is based on limiting total fat, saturated fat, cholesterol and sodium while increasing your intake of fiber and omega-3 fatty acids (good fats). When making changes in your diet: "Take Five" 1. Limit saturated fat and trans fats. Remember DART to identify common sources: Dairy (e.g., whole milk, cream, butter and regular cheese) - Animal fat (e.g., steak or chicken with skin) - Restaurant dishes, some fried foods - Treats (chocolate, cookies and other baked goods, and products with "partially hydrogenated oils" in the ingredient list) 2. Limit the amount of cholesterol you eat to less than 200 mg (milligrams) per day. Foods high in cholesterol include egg yolks, fatty meat, whole milk and regular cheese. 3. Cut back on sodium by getting rid of the saltshaker and avoiding high-sodium foods like deli meats, frozen meals, condiments, canned foods and other convenience items. Check the label and choose foods with no more than 140 mg of sodium per serving. 4. Get more fiber. Aim for 20 to 30 grams of fiber per day from sources like whole grains, fruit, vegetables, and beans. 5. Eat approximately 4 ounces of fish twice a week to get more omega-3 fatty acids. [place], cod, trout and tuna are high in omega-3s. Try low-sodium canned tuna for a less expensive option. Other Heart-Healthy diet information: ? Check with your doctor before drinking ANY alcohol. ? Use caffeine (coffee, tea, soft drinks) in moderation. Caffeine may affect your blood pressure and heart health. ? When dining out: o Ask for nutrition information to help stay on track with your heart-healthy diet. o Ask for sauces and dressings on the side. ? Read the Nutrition Facts label to be sure you are following the Heart-Healthy Guidelines. Heart-Healthy Diet Food Group Avoid Better Choices Milk/Dairy Whole milk Regular or processed cheese products Cream Nonfat (skim) or 1% milk Cheeses low in saturated fat and sodium Nonfat or low-fat yogurt Meat/ Protein Regular ground meats Deep-fried meats Fatty cuts such as ribeye or brisket White meat poultry without sl? Fresh fish or low-sodium canned fish Lean beef cuts: round steak, tenderloin, sirloin tips Vegetable protein foods, like beans, veggie burgers or tofu Ground sirloin or round Vegetables & Fruits Fried fruit such as plantain or fried fruit pies Fruits served with butter or cream Vegetables canned with sodium Fresh fruits and vegetables Frozen fruits and vegetables, no added sauces, gravies or salted seasonings Bread & Cereals High-fat bakery products, such as doughnuts, biscuits or croissants Snacks made with partially hydrogenated oils, like cheese puffs Products with whole grains as the first ingredient Breads with at least 2 grams of fiber per serving Cereals that contain at least 5 grams of fiber per serving Snacks like air-popped popcorn, low-salt pretzels Fats Butter Lard Partially hydrogenated oils Monounsaturated fats such as olive, grapeseed, or canola oil Whipped spreads Spreads with zero trans fat Reading a Food Label Reference: Academy of Nutrition and Dietetics, Adult Nutrition Care Manual, 2012. If you would like to obtain more information on a heart-healthy diet, please contact [facility] by calling [phone]. [id number] 02/08 Susan [id number] 16:37:31 Images from the original note were not included. 59465 Health Effects of Smoking Smoking damages almost every organ in your body. This includes your heart, lungs, and brain. It also affects your bones and raises your risk for certain cancers. These are all good reasons to quit. How smoking affects your body Chemicals in tobacco damage the DNA of cells. DNA controls normal cell function. As a result, normal cell growth and development are changed. This can result in abnormal cells that cause cancerous tumors to grow. Smoking has been linked with many serious illnesses. It also increases signs of aging. A few of the health effects of smoking are listed below. Smoking can: ? Raise your risk for many types of cancer. This includes cancer of the mouth, esophagus, lung, larynx, and windpipe (trachea). It can also increase the risk for stomach, pancreas, bladder, blood (acute myeloid leukemia), liver, kidney, and cervical cancer. Smokeless tobacco can cause cancers of the mouth, throat, esophagus, and pancreas. ? Harm your lungs and cause problems with breathing. This includes emphysema and COPD (chronic obstructive pulmonary disease). ? Raise blood pressure. This raises your risk for heart attack or stroke. ? Reduce blood flow. This can slow healing and cause wrinkles. ? Cause plaque to build up in your arteries (atherosclerosis). This can lead to heart attacks and strokes. ? Increase your risk for bone problems, including bone thinning (osteoporosis). Smoking can also lead to poor bone healing if you ever have a broken bone or bone surgery. ? In women, cause bleeding problems, miscarriage, stillbirth, or defects ? In men, cause problems with erections What happens when you smoke? When you smoke, your breathing becomes shallow. Your lungs fill with smoke. Smoking cigarettes also fills your body with chemicals, such as nicotine and tar. Here?s how these things affect your body: ? Smoke. Cigarette smoke contains carbon monoxide. This gas takes the place of oxygen in your blood. ? Nicotine. This drug raises your blood pressure and heart rate. It reduces blood flow to your arms and legs. And it slows digestion. ? Tar. Tar is what?s left after tobacco is smoked. This sticky brown material gums up your lungs. This causes less oxygen to get into your bloodstream. ? Other chemicals. Cigarette smoke contains more than 4,000 other chemicals. They include formaldehyde, arsenic, and lead. Dozens of these chemicals are known to cause cancer. To learn more ? CDC at www.cdc.gov/tobacco/quit_smoking or 598-GUPT-RTE (346-316-0197) ? Smokefree.gov at www.smokefree.gov or 200-19O-LLSZ (915-512-0983) ? [place] [employer] at www.lung.org/quit-smoking or 793-HSRQ-VCE (216-335-9767) Last Reviewed Date: 2022 00:00:00 ? The My [employer]%. All rights reserved. This information is not intended as a substitute for professional medical care. Always follow your healthcare professional's instructions. [facility]2025-03-25 16:33:47 Images from the original note were not included. 73463 Urinary Tract Infections in Women Urinary tract infections (UTIs) are most often caused by bacteria. These bacteria enter the urinary tract. The bacteria may come from inside the body. Or they may travel from the skin outside the rectum or vagina into the urethra. Female anatomy makes it easy for bacteria from the bowel to enter a person?s urinary tract. This is the most common source of UTIs. This means women develop UTIs more often than men. Pain in or around the urinary tract is a common UTI symptom. But the only way to know for sure if you have a UTI is for the healthcare provider to test your pee. The two tests that may be done are the urinalysis and urine culture. These tests tell your provider if you have a UTI and what type of bacteria is causing it. Gender words are used here to talk about anatomy and health risk. Please use this information in a way that works best for you and your provider as you talk about your care. Types of UTIs ? Cystitis. A bladder infection (cystitis) is the most common UTI in women. You may have an urgent or frequent need to pee. You may also have pain, burning when you pee, and bloody urine. ? Urethritis. This is an inflamed urethra. This is the tube that carries urine from the bladder to outside the body. You may have lower stomach or back pain. You may also have an urgent or frequent need to pee. ? Pyelonephritis. This is a kidney infection. It can be serious and damage your kidneys if not treated. You may need to stay in the hospital in severe cases. You may have a fever and lower back pain. Medicines to treat a UTI Most UTIs are treated with antibiotics. These kill the bacteria. The length of time you need to take them depends on the type of infection. It may be as short as 3 days. You may need a low-dose antibiotic for several months if you have repeated UTIs. Take antibiotics exactly as directed. Don?t stop taking them until all of the medicine is gone, even if you feel better. The infection may not go away fully and return if you stop taking the antibiotic too soon. You may also develop a resistance to the antibiotic. This can make it much harder to treat. Lifestyle changes to treat and prevent UTIs The lifestyle changes below will help get rid of your UTI. They may also help prevent future UTIs. ? Drink plenty of fluids. This includes water, juice, or other caffeine-free drinks. Fluids help flush bacteria out of your body. ? Empty your bladder. Always empty your bladder when you feel the urge to pee. And always pee before going to sleep. Urine that stays in your bladder can lead to infection. Try to pee before and after sex as well. ? Practice good personal hygiene. Wipe yourself from front to back after using the toilet. This helps keep bacteria from getting into the urethra. ? Wear cotton underwear. Don't wear synthetic or tight-fitting underwear that can trap moisture. Change out of wet bathing suits and workout clothing quickly. ? Take showers. Showers are better than baths for preventing UTIs. ? Use condoms during sex. These help prevent UTIs caused by sexually transmitted bacteria. Also don't use spermicides during sex. These can increase the risk for UTIs. Choose other forms of control instead. A low dose of a preventive antibiotic may be used for women who tend to get UTIs after sex. Be sure to discuss this choice with your healthcare provider. ? Follow up with your healthcare provider as directed. They may test to make sure the infection has cleared. If needed, more treatment may be started. Last Reviewed Date: 2023 00:00:00 ? [id number] The My 1%. All rights reserved. This information is not intended as a substitute for professional medical care. Always follow your healthcare professional's instructions. [facility] [id number] 16:33:45 Images from the original note were not included. 59957 Understanding Urinary Tract Infections (UTIs) Most UTIs are caused by bacteria. But they may also be caused by viruses or fungi. Bacteria from the bowel are the most common source of infection. An infection may be more likely due to any of these: ? Having sex. During sex, bacteria can go from the penis, vagina, or rectum into the urethra. ? Bacteria outside the rectum getting into the urethra. Bacteria on the skin outside the rectum may go into the urethra. This is more common in people who were assigned female at . That's because, for them, the rectum and urethra are closer to each other than in people who were assigned male at . Wiping from front to back after using the toilet can help prevent germs from getting to the urethra. So can keeping the area clean. ? Blocked urine flow through the urinary tract. If urine sits too long, germs may start to grow out of control. ? A new sex partner within the last year. ? A history of recurrent UTIs and antibiotic use. ? Use of spermicide and diaphragm. Parts of the urinary tract The infection can occur in any part of the urinary tract. ? The kidneys. These organs filter blood. They remove wastes and extra water to make urine. ? The ureters. These tubes carry urine from the kidneys to the bladder. ? The bladder. This holds urine until you're ready to pee. ? The urethra. This tube carries urine from the bladder out of the body. It's shorter in people who were assigned female at . So, for them, bacteria can move through it more easily. The urethra is longer in people who were assigned male at . So a UTI is less likely to reach the bladder or kidneys for them. Last Reviewed Date: 2023 00:00:00 ? [id number] The My 1%. All rights reserved. This information is not intended as a substitute for professional medical care. Always follow your healthcare professional's instructions. [facility] Bowltyn7593-27-16 16:32:22 Images from the original note were not included. 16030 Understanding Sepsis Sepsis is a life-threatening problem that affects your organs. It can happen if you have a severe infection. It's most often caused by bacteria. It ranges in severity from sepsis to severe sepsis to septic shock. All of these are a medical emergency. They need to be treated right away. What is sepsis? Sepsis is when the body reacts to an infection with severe inflammation. It can be caused by bacteria, fungus, or a virus. Sepsis can cause many kinds of problems in the body. It can lead to severe low blood pressure (shock). It can cause organ failure. This can lead to if not treated. Sepsis is most common in: ? Adults 65 years and older ? Patients in an intensive care unit (ICU) ? People who have a central venous line or urinary catheter ? People with a blood infection (bacteremia), pneumonia, meningitis, or a urinary tract infection ? People with some cancers, diabetes, or long-term kidney or liver disease ? People with immune system diseases, such as HIV or AIDS ? People who had an organ transplant or bone marrow or stem cell transplant ? People taking medicines that affect the immune system ? People being treated with chemotherapy, steroid medicines, or radiation ? People with severe injuries, including franks Symptoms of sepsis Symptoms of sepsis can include: ? Chills and shaking ? High fever ? Low blood pressure ? Fast heartbeat ? Fast breathing ? Shortness of breath ? Severe nausea or uncontrolled vomiting ? Confusion ? Not able to be awake or aware (coma) ? Dizziness ? Less urination ? Severe pain, including in the back or joints Diagnosing sepsis If your healthcare provider thinks you may have sepsis, you will be admitted to the hospital. You will have tests. You may have blood and urine tests. You may have cultures and other tests to look for the cause of the sepsis. These tests look for bacteria, viruses, and fungus. Other tests may check for problems with your organs. You may have X-rays or other imaging tests. These may be done to look at your organs to find the source of infection. Treating sepsis All forms of sepsis are a medical emergency. They must be treated in the hospital, often in the intensive care unit (ICU). If you have sepsis, your healthcare provider will give you antibiotics through a thin, flexible tube (IV). This is put into a vein in your arm or other area in your body. You will be given a large amount of fluids through the IV. You may be given nutrition or medicines through your IV. Your healthcare provider will talk with you about other treatments you may need. These may include an oxygen mask or a ventilator to help you breathe. This may include medicine that raises your blood pressure. You might need dialysis for kidney failure. Treatment may last at least 7 to 10 days. Even with a lot of treatment, sepsis can lead to . Last Reviewed Date: 2022 00:00:00 ? The My 1%. All rights reserved. This information is not intended as a substitute for professional medical care. Always follow your healthcare professional's instructions. [facility]2025-03-25 15:45:20 Ana María (KYRA) informed of right lower leg previos surgical site b;eeding as per night nurse observed. Dressing changed no bleeding noted. Ana María aware [facility]2025-03-25 14:49:04 The patient is Moderately Stable - Low risk of patient condition declining or worsening The patient's goals for the shift include get well, sleep The clinical goals for the shift include Hemodynamic Stability [facility] DallasDldfygy0211-70-86 03:00:00 The patient is Moderately Stable - Low risk of patient condition declining or worsening The patient's goals for the shift include get better,sleep well. The clinical goals for the shift include no fever, vss [facility]Texas [facility] DallasBclybfc8309-58-29 17:09:48 The patient is The patient's goals for the shift include get better The clinical goals for the shift include no fever, vss Over the shift, the patient did not make progress toward the following goals. Barriers to progression include. Recommendations to address these barriers include. Antonio Arellano RNTexas Health Presbyterian DallasKervbea8721-99-40 03:40:08 The patient is Moderately Stable - Low risk of patient condition declining or worsening The patient's goals for the shift include get better The clinical goals for the shift include no fever, vss Lisy Anderson RNTexas Health Presbyterian DallasStmikze7298-17-24 15:30:03 The patient is Moderately Stable - Low risk of patient condition declining or worsening The patient's goals for the shift include get better The clinical goals for the shift include hemodynamically stable, safety NursingTexas Health Presbyterian DallasIzrowry7535-17-39 21:28:12 The patient is Moderately Stable - Low risk of patient condition declining or worsening The patient's goals for the shift include get better The clinical goals for the shift include stable vitals and get better [place] 180145-03-22 15:05:01 The patient is Moderately Unstable - Medium risk of patient condition declining or worsening The patient's goals for the shift include get better The clinical goals for the shift include stable vitals and get better [place] [id number] 06:47:35 Patient's blood glucose was 53, patient was asymptomatic, alert and oriented x4. Juice was given to patient and breakfast was on the way. [place] [id number] 21:50:37 The patient is Moderately Stable - Low risk of patient condition declining or worsening The patient's goals for the shift include feel better The clinical goals for the shift include no pain and stable vitals [facility]2025-03-21 15:18:36 The patient is Moderately Unstable - Medium risk of patient condition declining or worsening The patient's goals for the shift include feel better The clinical goals for the shift include no pain [place] 48075-03-20 22:20:23 The patient is Moderately Stable - Low risk of patient condition declining or worsening The patient's goals for the shift include get better The clinical goals for the shift include VSS, resolved infection Over the shift, the patient did not make progress toward the following goals. Barriers to progression include . Recommendations to address these barriers include . [place] [id number] 12:52:33 The patient is Moderately Stable - Low risk of patient condition declining or worsening The patient's goals for the shift include get better The clinical goals for the shift include VSS, resolved infection [facility] DallasTygdiog0530-31-58 21:14:41 The patient is Moderately Stable - Low risk of patient condition declining or worsening The patient's goals for the shift include Get rest The clinical goals for the shift include Haemodynamic stability Over the shift, the patient did not make progress toward the following goals. Barriers to progression include . Recommendations to address these barriers include . [facility] DallasPzgbgch1377-46-61 15:56:13 Patient is transferred over from ER with SOB at 1045 am , improved with lasix, now on room air . IV heparin discontinued. [facility] DallasBvurzkz6969-53-26 13:02:41 The patient is Moderately Stable - Low risk of patient condition declining or worsening The patient's goals for the shift include The clinical goals for the shift include Over the shift, the patient did not make progress toward the following goals. Barriers to progression include ,. Recommendations to address these barriers include ,. [place] [id number] 11:43:43 [place] 09146-03-19 11:43:43* Over the past 2 weeks, how often have you been bothered by any of the following problems? Question Answer Date of Assessment Author Patient Health Questionnaire-2 Score 1 09/13/2024 12:00 PM CDT Carmen Troncoso AHP * Calculated C-SSRS Risk Score (Lifetime/Recent) Answer Date of Assessment Author No Risk Indicated 09/07/2024 8:37 PM CDSharon Mann LVN * If you checked off any problems on this questionnaire so far, Question Answer Date of Assessment Author How difficult have these problems made it for you to do your work, take care of things at home, or get along with other people? Somewhat difficult 09/13/2024 12:00 PM CDT Pooja Troncoso AHP * [place] Suicide Severity Rating Scale (Screener/Recent Self-Report) Question Answer Date of Assessment Author 1. Wish to be (Past 1 Month) No 09/07/2024 8:37 PM CDT Sharon Howell LVN 2. Non-Specific Active Suici darlene Thoughts (Past 1 Month) No 09/07/2024 8:37 PM CDT Porfirio Howell LVN 6. Suicidal Behavior (Lifetime) No 8:37 PM CDT Sharon Howell LVN * Over the past 2 weeks, how often have you been bothered by any of the following problems? Question Answer Date of Assessment Author Little interest or pleasure in doing things Not at all 09/13/2024 12:00 PM Pooja Gutiérrez AHP Feeling down, depressed, or hopeless Several days 09/13/2024 12:00 PM GAGANDEEPT [facility]ja Troncoso [facility] Trouble falling or staying asleep, or sleeping too much More than half the days 09/13/2024 12:00 PM GAGANDEEPT Pooja Troncoso [facility] Feeling tired or having little energy Not at all 09/13/2024 12:00 PM Pooja Gutiérrez [facility] Poor appetite or overeating Not at all 09/13/2024 12:00 PM Pooja Gutiérrez [facility] Feeling bad about yourself - or that you are a failure or have let yourself or your family down Not at all 09/13/2024 12:00 PM Pooja Gutiérrez [facility] Trouble concentrating on things, such as reading the newspaper or watching television Not at all 09/13/2024 12:00 PM CDT Pooja Troncoso [facility] Moving or speaking so slowly that other people could have noticed? Or the opposite - being so fidgety or restless that you have been moving around a lot more than usual. Not at all 09/13/2024 12:00 PM CDT Pooja Troncoso [facility] Thoughts that you would be better off or hurting yourself in some way Not at all 09/13/2024 12:00 PM CDT [facility]ja [facility]roncos[facility] Patient Health Questionnaire-9 Score 3 09/13/2024 12:00 PM CDT [id number]:43:43* This document contains information received from the source organization and may not represent a complete record from that organization. * Restricted notes were excluded * Irene Anderson DO - 09/14/2024 2:00 AM CDT Received after-hours page around 0145 this morning regarding this patient. Nurse stated that patient has abnormal vital signs: 101.1 Fahrenheit, heart rate 75, respirations 22, satting 98% on room air. However blood pressure has been low. Blood pressure was 72/56, repeat was 68/50 and manual was 80/60. Blood glucose was 204. Patient is reporting chills, weakness, difficulty breathing, unable to lay flat at all. Denies any chest pain, vomiting, headache, altered mental status. Recommended evaluation at ED, as patient recently started treatment for a UTI, there are concerns for sepsis as patient has met >2 SIRS criteria with a source of infection (UTI), and will likely need fluid resuscitation at minimum and unable to do this at [place]. Nursing staff at [place] placed verbalized understanding. Will forward notes to day team for further management. Irene Anderson DO [facility]idency [facility], PGY-3 Physicians at [facility] #[id number] Cosigned by Maricel Barone MD at 09/14/2024 8:50 AM CDT * Irnee Anderson DO - 09/13/2024 9:08 PM CDT Received after-hours page around approximately 2054, from nurse to review recent UA results. UA suggestive of a urinary tract infection with pyuria, and with patient's recent fever, leukocytosis, will prescribe a 3-day course of Bactrim to start this evening. Urine culture is already pending and has been drawn before administration of antibiotics. Currently vitals are stable: Temp of 97.3 Fahrenheit, BP 112/89, heart rate of 88, SpO2 of 96% on room air. Procalcitonin level is still pending. Nurses also notified me that patient declined Lantus administration this evening, patient did not eat lunch. Nurse will monitor BG over night. Have discussed with Dr Barone, and I will forward note to day team. Irene Andreson DO [facility] [facility] Residency [facility], PGY-3 Physicians at [facility] #[id number] Cosigned by Maricel Barone MD at 09/14/2024 8:50 AM CDT * Petra Vaughan MD - 09/13/2024 6:03 PM CDT Brief Progress Note Informed by nurse at 3:10 pm that patient had a fever of 100.9 with all other vitals stable. Patient does have a cough with new productive sputum. Chest x-ray, CBC, BMP, pro-robert, UA, urine culture all ordered. On re-evaluation at 5:30 p.m., patient does have mildly increasing WBC from 12 to 14 with a stable appearing chest x-ray. Patient also has EDUARDA as her creatinine increased from 0.7 this morning to 1 this afternoon. We are still awaiting pro-robert and UA. Nurse informed that if patient becomes tachycardic or hypoxic in addition to fever that she should be sent to ER for sepsis evaluation and potential IV fluids. We will hold off on any antibiotics for now until remaining labs result as patient is stable. Discussed with Dr. Barone. Petra Vaughan MD * Milind Obrien OT - 09/13/2024 5:09 PM CDT Occupational Therapy Occupational Therapy Daily Treatment Patient Name: Deepthi Moore Today's Date: 09/13/2024 General Session Information: Patient agreed for skilled therapy and was escorted down to gym. Patient complained of the yellowish tint of nasal drainage and nurse was informed and educated patient. Patient participated in endurance activities and functional mobilities but displayed fatigue following skilled therapy Patient was returned to bed and BP was taken. Reading was 134/67 Subjective Current Problem: Deconditioning and limited activity tolerance limits ADL participation. Objective Pain: Pain Assessment Pain Assessment: 0-10 (09/13/2024 1300) Pain Score: 0 (09/13/2024 1300) Treatment: Therapeutic Exercise: Exercise Tools: Exercise Tools Exercise Tools: Yes UE Ergometer: 15 minutes 99 activity level 0 resistance (2 rest breaks) Hand Gripper: 2 sets of 15 min resistance Other Exercise Tool 1: Michael teodoro 2 lbs 2 sets of 15 shoulder flexion Other Exercise Tool 2: Free Weights 2lbs 3 sets of 15 Other Exercise Tool 3: Flex Bar 3 sets of 15 min Resistance 3 sets of 15 Up and down Therapeutic Activity: Therapeutic Activities: Yes Therapeutic Activity 2: Transitional movement (sit to stand) Therapeutic Activity 4: Wheelchair mobility (Wheelchair management education locking and unlocking the chair.) Activity Tolerance: Patient Education: Education Documentation No documentation found. Education Comments No comments found. Milind Obrien OT * Petra Vaughan MD - 09/13/2024 2:33 PM CDT Received page at 2:30 from nurse for BMP results. Patients kidney function and electrolytes are stable. Patient’s potassium is 4.3 which has increased since the last time it was checked. Given she has been started on spironolactone recently, I will discontinue her daily potassium chloride supplementation. Discussed with Dr. Barone. Petra Vaughan MD * Consuelogeorgesbob Jiménezdillon, PT - 09/13/2024 12:29 PM CDT Physical Therapy Physical Therapy Weekly Progress Note Patient Name: Deepthi Moore Today's Date: 09/13/2024 General Visit Information: She's making good gains with skilled PT treatments Subjective Current Problem: Limited ambulation endurance,decreased strength BLE,min dependency with transfers, impaired functional activities tolerance ,assistance with stairs climbing and impaired dynamic standing tolerance Objective Pain: Pain Assessment Pain Assessment: 0-10 (09/13/20241052) Pain Score: 0 (She denies any pain or discomfort) (09/13/20241052) Pain Interventions: (She was pre-medicated by Nursing prior to treatment) (09/13/20241052) Treatment: Therapeutic Exercise: Exercises Hip Flexion: AROM ex BLE in sitting and in supported standing x 20 reps Hip ABduction: AROM ex BLE in sitting and in supported standing x 20 reps Knee AROM : AROM ex BLE in sitting and in supported standing x 20 reps Ankle Pumps: AROM ex BLE in sitting and in supported standing x 20 reps Equipment Used: Equipment Use Comments: Omnicycle x 10 mins using neuro mode at level #1 to facilitate cardiovascular and neuromuscular conditioning Functional Assessments: Bed Mobility: Bed Mobility Bed Mobility: Yes Bed Mobility 1 Bed Mobility From 1: Supine Bed Mobility Type 1: To Bed Mobility to 1: Short sit Level of Assistance 1: Independent Transfers: Transfers Transfer: Yes Transfer 1 Transfer From 1: Bed Transfer Type 1: To Transfer to 1: Wheelchair Technique 1: Stand pivot Level of Assistance 1: Supervision/touching assistance Trials/Comments 1: x 5 trials Transfers 2 Transfer From 2: Sit, Stand Transfer Type 2: To and from Transfer to 2: Stand, Sit Level of Assistance 2: Supervision/touching assistance Trials/Comments 2: X 5 trials Wheelchair Activities: Wheelchair Activities Wheelchair Type: Manual/standard Level of Assistance: Close supervision (Close SUP) Ambulation 1: Surface 1: Level tile Device 1: Rolling walker Assistance 1: Supervision/touching assistance Quality of Gait 1: Narrow REAGAN,,reduced velocity,decreased B/L step length Comments/Distance (ft) 1: 80 feet x 2 trials Stairs : Ascended and descended 2 flights of 9 steps with B/L railings and SBA in step over step manner CARE Scores: Roll Left and Right: Assistance Needed: Independent CARE Score - Roll Left and Right: 6 Sit to Lying: Assistance Needed: Independent CARE Score - Sit to Lyin Lying to Sitting on Side of Bed: Assistance Needed: Supervision CARE Score - Lying to Sitting on Side of Bed: 4 Sit to Stand: Assistance Needed: Supervision Physical Assistance Level: No physical assistance CARE Score - Sit to Stand: 4 Chair/Rbr-hs-Zgiea Transfer: Assistance Needed: Supervision CARE Score - Chair/Dok-vd-Kavrb Transfer: 4 Toilet Transfer: Assistance Needed: Supervision CARE Score - Toilet Transfer: 4 Car Transfer: Reason if not Attempted: Medical concerns CARE Score - Car Transfer: 88 Walk 10 Feet: Assistance Needed: Supervision CARE Score - Walk 10 Feet: 4 Walk 50 Feet with Turns: Assistance Needed: Supervision CARE Score - Walk 50 Feet with Two Turns: 4 Walk 150 Feet: Reason if not Attempted: Medical concerns CARE Score - Walk 150 Feet: 88 Walk 10 Feet on Uneven Surface: Reason if not Attempted: Activity not applicable CARE Score - Walking 10 Feet on Uneven Surfaces: 9 1 Step (Curb): Assistance Needed: Supervision Reason if not Attempted: Medical concerns CARE Score - 1 Step (Curb): 4 4 Steps: Assistance Needed: Supervision Reason if not Attempted: Medical concerns CARE Score - 4 Steps: 4 12 Steps: Assistance Needed: Supervision Reason if not Attempted: Medical concerns CARE Score - 12 Steps: 4 Picking Up Object: Reason if not Attempted: Safety concerns CARE Score - Picking Up Object: 88 Wheel 50 Feet with Turns: Assistance Needed: Supervision Reason if not Attempted: Activity not applicable CARE Score - Wheel 50 Feet with Two Turns: 4 Type of Wheelchair/Scooter: Manual Wheel 150 Feet: Reason if not Attempted: Medical concerns CARE Score - Wheel 150 Feet: 88 Objective Metrics: Time Up and Go: Unable without assistance Patient Education: Safety with transfers and importance of energy conservation techniques Goals: Encounter Goals Encounter Goals (Active) Patient will progress to ambulate on even surface using LRAD/No AD with Mod I for >500 feet and with good balance Start: 09/08/24 Expected End: 10/09/24 Patient will progress ascending and descending 17 steps with unilaterall or bilateral rails in appropriate manner with Mod I Start: 09/08/24 Expected End: 10/09/24 Within 2 weeks of starting therapy, the patient and/or family/caregiver will demonstrate independence and be compliant in a written HEP in order to maximize gains made during therapy. Start: 09/08/24 Expected End: 10/09/24 Improve RLE Muscle strength to 5/5 in order to facilitate improved functional mobility and ambulation. Start: 09/08/24 Expected End: 10/09/24 Patient will participate in dynamic standing balance activities with Mod I for 10 minutes in order to decrease LOB and facilitate safe functional mobility. Start: 09/08/24 Expected End: 10/09/24 Patient will progress level surface transfers to independence Start: 09/08/24 Expected End: 10/09/24 Assessment & Plan Assessment:Assessment Results: Decreased endurance, Impaired balance, Decreased mobility, Decreased coordination, Decreased strength Prognosis: Good Evaluation/Treatment Tolerance: Patient tolerated treatment well Medical Staff Made Aware: Yes Strengths: Coping skills, Ability to acquire knowledge, Insight into deficits, Support of extended family/friends Plan:Treatment Plan/Goals Established with Patient/Caregiver: Yes Treatment/Interventions: Balance training, Gait training, Neuromuscular re-education, Patient education, Stair training, Therapeutic exercises, Transfer training PT Plan: Skilled PT PT Frequency: 5 times per week for 60 days PT Discharge Recommendations: Home health PT Equipment Recommended: (RW) Javi Davis, PT,DPT * Petra Vaughan MD - 09/12/2024 6:35 PM CDT Received a page at 6:30 pm from nurse saying Kirstie will be delivered tomorrow from pharmacy. Patient also is not a candidate for TB skin test as she received a BCG vaccine, so a chest x-ray had been ordered to rule out TB. * Milind Obrien OT - 09/12/2024 4:47 PM CDT Occupational Therapy Occupational Therapy Daily Treatment Patient Name: Deepthi Moore Today's Date: 09/12/2024 General Session Information: Patient was seen following PT services and participated in UE strengthening that was light due to sternal precautions. Patient also participated in functional mobility and transitional movements for balance and endurance. Following therapy in gym patient was supervised on her trip to bathroom. Subjective Current Problem: Sternal precautions limit ADL participation Objective Pain: Pain Assessment Pain Score: 0 (09/12/2024 1300) Self-Care: ADL Toileting Assistance: Supervision/touching assistance ADL Comments: Patient was supervised in toileting and was able to complete task safely Transfers CARE Scores: Treatment: Therapeutic Exercise: Exercise Tools: Exercise Tools Exercise Tools: Yes Hand Gripper: 2 sets of 25 hand grippers min resistance visual demo Other Exercise Tool 1: 2lb weight 2 sets of 15 bicep curls with light exercises Therapeutic Activity: Therapeutic Activities: Yes Therapeutic Activity 2: Transitional movement (sit 2 stand 3 sets of 10 with cardiac pillow to reduce use of hands) Therapeutic Activity 4: Transitional movement (functional mobility through obstacles to reduce fall risk CGA) Activity Tolerance: Patient Education: Milind Obrien OT * Javi Davis PT - 09/12/2024 3:15 PM CDT Physical Therapy Physical Therapy Daily Treatment Note Patient Name: Deepthi Moore Today's Date: 09/12/2024 General Session Information: Patient tolerated treatment session well and actively participated with PT Subjective Current Problem: Limited ambulation endurance,decreased strength BLE,impaired functional mobility,min dependency with transfers,impaired functional activities tolerance and min sup/assistance with stairs climbing Objective Pain: Pain Assessment Pain Assessment: 0-10 (09/12/20241443) Pain Score: 0 (She denies any significant pain or discomfort) (09/12/2024 144) Pain Interventions: Medication (See MAR) (09/12/20241443) Treatment: Therapeutic Exercise: Exercises Hip Flexion: AROM ex BLE in sitting x 20 reps Hip ABduction: AROM ex BLE in sitting x 20 reps Knee AROM : AROM ex BLE in sitting x 20 reps Ankle Pumps: AROM ex BLE in sitting x 20 reps Equipment Used: Equipment Use Comments: Omnicycle x 10 mins using neuro mode at level 1 resistance to facilitate cardiovascular and neuromuscular conditioning Functional Assessments: Bed Mobility: Bed Mobility Bed Mobility: Yes Bed Mobility 1 Bed Mobility From 1: Supine Bed Mobility Type 1: To Bed Mobility to 1: Short sit Level of Assistance 1: Independent Transfers: Transfers Transfer: Yes Transfer 1 Transfer From 1: Bed Transfer Type 1: To and from Transfer to 1: Wheelchair Technique 1: Stand pivot Level of Assistance 1: Supervision/touching assistance Trials/Comments 1: x 5 trials Transfers 2 Transfer From 2: Sit Transfer Type 2: To and from Transfer to 2: Stand Level of Assistance 2: Partial/Mod assistance (Min A) Trials/Comments 2: X 5 trials Ambulation: Surface 1: Level tile Device 1: Rolling walker Assistance 1: Supervision/touching assistance Quality of Gait 1: Decreased B/L step length,narrow REAGAN,etc Comments/Distance (ft) 1: 75 feet x 2 Stairs:Ascended and descended 9 steps x 2 trials with B/L railings and SBA/SUP in safe manner-reciprocal/oryg-hr-eihx fashion CARE Scores: Roll Left and Right: Assistance Needed: Independent CARE Score - Roll Left and Right: 6 Sit to Lying: Assistance Needed: Independent CARE Score - Sit to Lyin Lying to Sitting on Side of Bed: Assistance Needed: Independent CARE Score - Lying to Sitting on Side of Bed: 6 Sit to Stand: Assistance Needed: Supervision CARE Score - Sit to Stand: 4 Chair/Mjl-yl-Iuqqu Transfer: Assistance Needed: Supervision CARE Score - Chair/Odv-ta-Xxkie Transfer: 4 Toilet Transfer: Assistance Needed: Supervision CARE Score - Toilet Transfer: 4 Car Transfer: Reason if not Attempted: Medical concerns CARE Score - Car Transfer: 88 Walk 10 Feet: Assistance Needed: Supervision CARE Score - Walk 10 Feet: 4 Walk 50 Feet with Turns: Assistance Needed: Supervision CARE Score - Walk 50 Feet with Two Turns: 4 Walk 150 Feet: Reason if not Attempted: Medical concerns CARE Score - Walk 150 Feet: 88 Walk 10 Feet on Uneven Surface: Reason if not Attempted: Activity not applicable CARE Score - Walking 10 Feet on Uneven Surfaces: 9 1 Step (Curb): Reason if not Attempted: Medical concerns CARE Score - 1 Step (Curb): 88 4 Steps: Reason if not Attempted: Medical concerns CARE Score - 4 Steps: 88 12 Steps: Reason if not Attempted: Medical concerns CARE Score - 12 Steps: 88 Picking Up Object: Reason if not Attempted: Medical concerns CARE Score - Picking Up Object: 88 Wheel 50 Feet with Turns: Reason if not Attempted: Activity not applicable CARE Score - Wheel 50 Feet with Two Turns: 9 Wheel 150 Feet: Reason if not Attempted: Medical concerns CARE Score - Wheel 150 Feet: 88 Objective Metrics: Time Up and Go: Unable w/o assistance Patient Education: Reinforced energy conservation techniques and safety with transfers Her vital signs stable at-Rest BP 149/65,HR 86 and SAO2 95% at room air. After treatment-BP 154/70,HR 88 and SAO2 at room air 98% Javi Davis PT,DPT * Petra Vaughan MD - 09/12/2024 8:43 AM CDT Images from the original note were not included. Subjective Hospital Course: Deepthi Moore is a 68 y.o. female with PMH CAD s/p CABGx4, insulin-dependent T2DM, hypertension, HLD, and PAD who presented with symptomatic angina and a positive stress test leading to LH catheterization and CABG x4 with right great saphenous vein graft. She was monitored in the CV ICU intubated on pressors in cardiogenic shock for a few days then transferred to the CV IMU. Echocardiogram was performed on 08/28/24 which showed reduced ejection fraction of 40-45%. Her chest tube was removed 09/02. She was deemed stable for transfer to nursing home facility on 09/06/24 for further rehabilitation. Code Status: Full code Medical Power of Box Coverer Hand: Her son, pending official documentation Living Situation: Patient lives alone in a 2nd story apartment. She was fully functional with all IADLs/ADLs prior to hospitalization. She has a who lives separately from her in [place] and is able to help her during this time. 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 Joseph GUAN CV surgery: Dr. Jaqueline GUAN PCP: Dr. Diane GUAN Today, patient is making significant progress with PT/OT. She is walking with a walker and taking steps independently. No acute events overnight. Patient did feel SOB over the weekend. She is having difficulty sleeping at night as she is scared she will fall out of the bed. Objective Last Recorded Vitals Blood pressure 143/70, pulse 80, temperature 36.8 ?C (98.2 ?F), temperature source Oral, resp. rate 18, height 1.651 m (5' 5"), weight 80.5 kg (177 lb 6.4 oz), SpO2 97%. Physical Exam: Constitutional: Appearance: Normal appearance. HENT: Head: Normocephalic and atraumatic. Right Ear: External ear normal. Left Ear: External ear normal. Nose: Nose normal. Mouth/Throat: Mouth: Mucous membranes are moist. Eyes: Extraocular Movements: Extraocular movements intact. Conjunctiva/sclera: Conjunctivae normal. Cardiovascular: Rate and Rhythm: Normal rate and regular rhythm. Heart sounds: No murmur heard. Pulmonary: Effort: Pulmonary effort is normal. Breath sounds: Normal breath sounds. Abdominal: General: Abdomen is flat. Palpations: Abdomen is soft. Tenderness: There is no abdominal tenderness. Musculoskeletal: General: Normal range of motion. Cervical back: Normal range of motion. Right lower leg: Edema present. Left lower leg: Edema present. Comments: 2+ pitting to knee bilaterally Skin: General: Skin is warm and dry. Findings: Wound (sternotomy incision c/d/i, right groin wound with fibrinous tissue, lower chest wound clean and dry, pre-tibial R incision c/d/i) present. Neurological: General: No focal deficit present. Mental Status: She is alert and oriented to person, place, and time. Psychiatric: Mood and Affect: Mood normal. Behavior: Behavior normal. Lower chest wound Lower Right calf Right groin wound Assessment & Plan 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 S/P CABG x 4 Hyperlipidemia 08/26/24 S/p CABG x4 with HELM to the LAD, Reversed saphenous vein graft from the aorta to the first diagonal and the OM, Reversed saphenous vein graft from the aorta to the PDA (RCA), Exclusion of the left atrial appendage with an AtriClip on 08/28/24 Carotid U/S showed no significant stenosis 08/29/24 Echocardiogram showed reduced EF of 40-45% Continue aspirin, plavix, and statin Sternotomy incision c/d/I Lower chest wound c/d, use non-adherent strips Change border dressing daily on R pre-tibial incision, lower chest wound, and R groin wound Pain regimen: Tylenol 650 mg q8h, robaxin 750 mg TID PT/OT, walker ordered DME No associated orders from this encounter found during lookback period of 72 hours. Acute on chronic systolic (congestive) heart failure (HCC) 08/29/24 Echocardiogram showed reduced EF of 40-45% Repeat echo outpt with cardiology follow-up GDMT: On BB, carvedilol. Consider DANILO Start Farxiga and spironolactone Increase lasix to 40 mg PO BID for next few days Repeat CMP tomorrow and Orders from past 72 hours: carvedilol (Coreg) tablet 3.125 mg Diabetes mellitus, type 2 (HCC) Uncontrolled Reports home regimen: lantus 40 units BID with 10-25 units lispro with meals Increase regimen: lantus 50 units in the morning and 25 units in the evening, lispro 10 units with meals Consider sliding scale insulin Carbohydrate controlled diet No associated orders from this encounter found during lookback period of 72 hours. Constipation Adequate BM now PRN Miralax and senokot No associated orders from this encounter found during lookback period of 72 hours. Acute blood loss anemia (ABLA) S/p 1u pRBC then 2u pRBC prior to transfer to SNF Hgb on discharge 10.6 after transfusion Repeat CBC wnl No associated orders from this encounter found during lookback period of 72 hours. Hypokalemia Resolved Continue CMP tomorrow and Continue potassium chloride 20 mEq daily No associated orders from this encounter found during lookback period of 72 hours. Primary hypertension Continue BB Consider DANILO No associated orders from this encounter found during lookback period of 72 hours. Open-angle glaucoma Continue brimonidine, timolol, and latanoprost No associated orders from this encounter found during lookback period of 72 hours. Insomnia Patient declines Seroquel at this time PRN melatonin Current Diet: Adult Diet Carbohydrate Controlled; Carb choice 1800 robert Patient and plan discussed with attending physician Dr. Barone. Petra Vaughan MD PGY-2, [facility] Physicians at [facility] #[id number] Cosigned by Maricel Barone MD at 09/12/2024 4:52 PM CDT Associated attestation - Maricel Barone MD - 09/12/2024 4:52 PM CDT I saw and evaluated the patient, participating in the doty portions of the service. I reviewed the resident's note. I agree with the resident's findings and plan. In brief, for patient's persistent lower extremity swelling and shortness of breath, will schedule Lasix 40mg twice daily for the next 3 days. Plan to repeat BMP tomorrow and morning for monitoring of electrolytes and kidney function. Will continue potassium supplementation in the setting of increasing Lasix. Additionally, after discussion with patient and her son, will add Farxiga and spironolactone for GDMT in management of HFrEF. Consider adding ACEI while at SNF if blood pressure allows. * Sharon Howell LVN - 09/11/2024 6:46 PM CDT Pt stated that her wound care is done on M/W/F, dressing CDI and remains in stable condition. * Fernando Herron, PT - 09/10/2024 2:00 PM CDT Physical Therapy Physical Therapy Daily Treatment Note Patient Name: Deepthi Moore Today's Date: 09/10/2024 General Session Information: Subjective " I feel better" Patient agreed for therapy. Objective Pain:Pain Assessment Pain Assessment: 0-10 (09/10/2024 1300) Pain Score: 0 (09/10/2024 1300) Treatment: Gait trainin + 120 feet with out with out any device and with SBA- verbal cues for postural correction, w/c follow for safety. Omni cycle: Neuro # 2 for 15 min to improve strength and endurance. Functional transfers with out assistive device. Reviewed sternal precautions. Functional Assessments:Transfers: Transfers Transfer: Yes Transfer 1 Transfer From 1: Bed Transfer Type 1: To and from Transfer to 1: Wheelchair Technique 1: Stand pivot Level of Assistance 1: Supervision/touching assistance Trials/Comments 1: x 5 trials Ambulation 1:Surface 1: Level tile Device 1: No device Assistance 1: Supervision/touching assistance Comments/Distance (ft) 1: 120 + 120 feet Patient Education: Safety Fernando Herron, PT * Javi Davis, PT - 09/09/2024 12:44 PM CDT Physical Therapy Physical Therapy Daily Treatment Note Patient Name: Deepthi Moore Today's Date: 09/09/2024 General Session Information: She's highly motivated to max her functional potential and regain her PLOF Subjective Current Problem: Decreased strength RLE,pain,min transfers dependencies,limited ambulation endurance,abnormality of gait and impaired functional activities tolerance Objective Pain:Pain Assessment Pain Assessment: 0-10 (09/09/2024 1230) Pain Score: 7 (09/09/2024 1230) Pain Type: Chronic pain (09/09/2024 1230) Pain Location: (Generalized-neck,lower back and shoulders.She was pre-medicated by Nursing prior to PT treatments) (09/09/2024 1230) Treatment:Therapeutic Exercise: Exercises Hip Flexion: AROM in sitting x 20 reps Hip ABduction: AROM in sitting x 20 reps Knee AROM : AROM in sitting x 20 reps Ankle Pumps: AROM in sitting x 20 reps Standing Standing-Exercises: Lower extremity (RLE only) Standing-Exercise Comments: AROM RLE in supported standing x 20 reps Equipment Used:Equipment Use Comments: Omnicycle x 15 mins BLE iusing neuro mode at #2 resistance to enhance cardiovascular and neuromuscular conditioning Functional Assessments:Transfers: Transfers Transfer: Yes Transfer 1 Transfer From 1: Sit Transfer Type 1: To Transfer to 1: Stand Technique 1: Stand pivot Level of Assistance 1: Supervision/touching assistance Trials/Comments 1: x 5 trials Ambulation 1:Surface 1: Level tile Device 1: Rolling walker Assistance 1: Setup/clean-up assistance Quality of Gait 1: Narrow REAGAN,decreased B/L step length Comments/Distance (ft) 1: 75 feet x 2 CARE Scores:Roll Left and Right: Assistance Needed: Independent CARE Score - Roll Left and Right: 6 Sit to Lying:Assistance Needed: Independent CARE Score - Sit to Lyin Lying to Sitting on Side of Bed:Assistance Needed: Independent CARE Score - Lying to Sitting on Side of Bed: 6 Sit to Stand:Assistance Needed: Supervision CARE Score - Sit to Stand: 4 Chair/Tqy-da-Fvtck Transfer:Assistance Needed: Supervision CARE Score - Chair/Uri-to-Xbfnj Transfer: 4 Toilet Transfer:Assistance Needed: Supervision CARE Score - Toilet Transfer: 4 Car Transfer:Reason if not Attempted: Medical concerns CARE Score - Car Transfer: 88 Walk 10 Feet:Assistance Needed: Supervision CARE Score - Walk 10 Feet: 4 Walk 50 Feet with Turns:Assistance Needed: Supervision CARE Score - Walk 50 Feet with Two Turns: 4 Walk 150 Feet:Reason if not Attempted: Medical concerns CARE Score - Walk 150 Feet: 88 Walk 10 Feet on Uneven Surface:Reason if not Attempted: Activity not applicable CARE Score - Walking 10 Feet on Uneven Surfaces: 9 1 Step (Curb):Reason if not Attempted: Medical concerns CARE Score - 1 Step (Curb): 88 4 Steps:Reason if not Attempted: Medical concerns CARE Score - 4 Steps: 88 12 Steps:Reason if not Attempted: Medical concerns CARE Score - 12 Steps: 88 Picking Up Object:Reason if not Attempted: Medical concerns CARE Score - Picking Up Object: 88 Wheel 50 Feet with Turns:Reason if not Attempted: Activity not applicable CARE Score - Wheel 50 Feet with Two Turns: 9 Wheel 150 Feet:Reason if not Attempted: Medical concerns CARE Score - Wheel 150 Feet: 88 Objective Metrics:Time Up and Go: Unable without assistance Patient Education:Reinforced energy conservation techniques and safety with transfers Javi Davis PT,DPT * Farhana Wilson OT - 09/09/2024 11:58 AM CDT Occupational Therapy Occupational Therapy Daily Treatment Patient Name: Deepthi Moore Today's Date: 09/09/2024 General Session Information: Pt participated in B UE strengthening/endurance, transitional movement, and dynamic and static standing balance activities. Subjective Current Problem: Pt reports UB pain along back and shoulders. ObjectivePain: Pain Assessment Pain Assessment: 0-10 (09/09/20241099) Pain Score: 7 (09/09/20241099) Pain Location: Other (Comment) (Back/Shoulder) (09/09/20241099) Pain Orientation: Right, Left (09/09/20241099) Treatment: Pt found sitting in wheelchair in gym. At rest vitals read BP122/69, HR 83, and SPO2% 100%. Therapeutic Exercise: Exercise Tools:Exercise Tools Exercise Tools: Yes UE Ergometer: 15 minutes level 1 resistance (Breaks taken PRN) Other Exercise Tool 1: B UE strengthening in all planes 2/20x within limits/tolerance using light resistance yellow dowel. Breaks taken PRN Other Exercise Tool 2: Light resistance yellow hand ball squeezes performed 3/20x Therapeutic Activity:Therapeutic Activities: Yes Therapeutic Activity 1: Other (comment) (B UE coordinated reach/grasp dynamic standing balance activity performed with CGA and recall cues for task instruction. BP 128/58 HR 85 SPO2% 98% post activity) Therapeutic Activity 2: Balance, static standing (standing tolerance activity performed using puzzle and timer. CGA required) Therapeutic Activity 3: Transitional movement (3 sit<>stand transfers performed with CGA) Activity Tolerance: Good Farhana Wilson OT * Hammad Carranza PharmD - 09/09/2024 10:09 AM CDT Pharmacy Medication Reconciliation Name: Deepthi Moore : 1955 Age: 68 y.o. Sex: female Ht/Wt: 1.651 m (5' 5") 83.8 kg (184 lb 11.2 oz) Allergy Discrepancy: No issues Admission Medication Reconciliation Completed: Yes Patient admitted from: [facility] Discrepancies noted between admit orders and MAR from outside hospital/home medication list: No issues found . Hammad Carranza PharmD * Dennise Loza NP - 09/08/2024 7:45 PM CDT Skin Assessment: S/P CABG Sternal wound with surgical glue, well attached edges, no sign of infection. CT site with one stitch and a staple left and removed successfully without any pain. Right groin surgical wound well attached, no sign of infection. Right pre-tibial 14 cm at mid wound slight serosanguinous drainage Treatment: Monitor sternal wound and right groin for signs of infection. Keep dry and notify if moist or drainage. CT site, place calcium alginate MWF, only clean if soiled. On Right surgical wound with serosanguinous drainage, clean with NS, pat dry. Apply Calcium alginate with silver and cover with border dressing MWF Do not wet wounds until cleared by Cardiology * Farhana Wilson, OT - 09/08/2024 12:48 PM CDT Occupational Therapy Occupational Therapy Evaluation and Treatment Patient Name: Deepthi Moore Today's Date: 09/08/2024 General Session Information: Ms. Moore found sitting in therapy gym. She was motivated to participate in skilled OT. Subjective Current Problem: Pt reports pain along left UE and SoB. Objective Pain: Pain Assessment Pain Assessment: 0-10 (09/08/2024 1000) Pain Score: 7 (09/08/2024 1000) Pain Type: Other (Comment) (achy/radiating pain) (09/08/2024 1000) Pain Location: Arm (09/08/2024 1000) Pain Orientation: Left (along armpit / posterior arm) (09/08/2024 1000) Precautions: UE Weight Bearing Status: FWB LE Weight Bearing Status: FWB Post-Surgical Precautions: Falls,Cardiac,Diabetic,[place],Sternal Home Living: Home Living Lives With: Alone Home Adaptive Equipment: None Home Living Comments: 2nd floor apartment Home Layout: Multi-level Home Access: Stairs to enter with rails Entrance Stairs-Rails: Both Entrance Stairs-Number of Steps: 17 Bathroom Shower/Tub: Tub/shower unit Bathroom Toilet: Standard Bathroom Equipment: None Prior Level of Function: Level of [place]: Independent with ADLs and functional transfers, Independent with homemaking with ambulation Receives Help From: Neighbor, Family, Friends ADL Assistance: Independent Homemaking Assistance: Independent Vocational: Retired Leisure: reading; gardening; writing IADL History: Meal Prep Responsibility: Primary Laundry Responsibility: Primary Cleaning Responsibility: Primary Mode of Transportation: Bus Self-Care: ADL Grooming Assistance: Independent Grooming Deficit: Wash/dry hands UE Dressing Assistance: Supervision/touching assistance UE Dressing Deficit: Increased time to complete, Supervision/safety, floor covering printer assistant head, Pull around back, Pull down in back, Thread LUE, Thread RUE, Verbal cueing, Fasteners LE Dressing Assistance: Supervision/touching assistance LE Dressing Deficit: Increased time to complete, Supervision/safety, Verbal cueing, Tie shoes ADL Comments: pt demonstrates reduced activity tolerance requiring breaks PRN and increased time to complete tasks. Pt educated/cued on use of proper inhale/exhale strategies to conserve energy. Increased B LE swelling limiting pt ability to don shoes completely over foot Self-Care CARE Scores: Eating: Assistance Needed: Set-up / clean-up CARE Score - Eatin Oral Hygiene: Assistance Needed: Independent CARE Score - Oral Hygiene: 6 Toileting Hygiene: Assistance Needed: Supervision Physical Assistance Level: No physical assistance CARE Score - Toileting Hygiene: 4 Shower/Bathe Self: Reason if not Attempted: Medical concerns CARE Score - Shower/Bathe Self: 88 Upper Body Dressing: Assistance Needed: Supervision, Verbal cues Physical Assistance Level: No physical assistance CARE Score - Upper Body Dressin Lower Body Dressing: Assistance Needed: Supervision, Verbal cues CARE Score - Lower Body Dressin Putting On/Taking Off Footwear:: Assistance Needed: Supervision CARE Score - Putting On/Taking Off Footwear: 4 Extremity Assessments: Right Upper Extremity: RUE Assessment RUE Assessment: Within Functional Limits RUE Strength RUE Overall Strength: Due to precautions (3+/5 MMT) Left Upper Extremity: LUE Assessment LUE Assessment: Within Functional Limits LUE Strength LUE Overall Strength: Due to precautions, Due to pain (3+/5 MMT) General Assessments: Vision Basic: Vision - Basic Assessment Current Vision: Does not wear glasses Treatment: Pt educated on proper inhale/exhale strategies to manage vitals/conserve energy. Exercise Tools: Exercise Tools Exercise Tools: Yes UE Ergometer: 15 minutes level 1 resistance 82% activity (Facilitated pt in B UE endurance/strengthening) 98% SP O2% reading Therapeutic Activity: Therapeutic Activities: Yes Therapeutic Activity 1: Transitional movement (3 sit<>stand transfers SPV A required) Therapeutic Activity 2: Balance, dynamic standing (2x requiring CGA and cues for using proper breathing strategies, and breaks PRN) Activity Tolerance: Fair+ with rest breaks and hydration Goals: Encounter Goals Encounter Goals (Active) Patient will perform upper body dressing with Independent assist while maintaining controlled breathing patterns to improve independence/safety Start: 09/08/24 Expected End: 10/09/24 Goal note on 09/08/24 1301 by Farhana Wilson OT SPV A with breaks/breathing cues at [facility] 09/08/24 V.S Patient will perform lower body dressing with Independent assist while maintaining controlled breathing patterns to improve independence/safety. Start: 09/08/24 Expected End: 10/09/24 Goal note on 09/08/24 1301 by Farhana Wilson OT SPV A with breaks/breathing cues at [facility] 09/08/24 V.S Patient will increase functional activity tolerance to 4 hours with stable vitals, in order to progress towards PLOF with ADLs. Start: 09/08/24 Expected End: 10/09/24 Goal note on 09/08/24 1301 by Farhana Wilson OT >1 hour with breaks V.S 09/08/24 Patient will improve standing tolerance to 45 minutes in order to improve participation with ADL tasks. Start: 09/08/24 Expected End: 10/09/24 Goal note on 09/08/24 1314 by Farhana Wilson OT ~10 minutes with breaks- at eval 09/08/24 V.S Patient will increase bilateral UE strength to 4+/5 in order to improve performance with ADLs and mobility tasks. Start: 09/08/24 Expected End: 10/09/24 Goal note on 09/08/24 1301 by Farhana Wilson OT 3+/5 at eval V.S Assessment & PlanAssessment: OT Assessment Results: Impaired upper extremity strength, Impaired ADL status, Impaired endurance Prognosis: Good Barriers to Discharge: Past Medical history, Home accessibility Strengths: Ability to acquire knowledge, Attitude of self, Coping skills, Insight into deficits, Support of extended family/friends Plan:Treatment Interventions: Endurance training, UE strengthening/ROM, ADL retraining OT Plan: Skilled OT OT Frequency: 5 times per week for 60 days Equipment Recommended: (to be determined) Farhana Wilson, OT * Javi Davis, PT - 09/08/2024 11:47 AM CDT Physical Therapy Physical Therapy Evaluation and Treatment Patient Name: Deepthi Moore Today's Date: 09/08/2024 General Session Information: She participated actively with skilled PT.She's highly motivated to regain her PLOF Subjective Current Problem: Impaired functional activities tolerance,limited ambulation endurance,decreased strength RLE,min dependency with transfers,pain and gait abnormality Objective Precautions: UE Weight Bearing Status: FWB Medical Precautions: FWB Post-Surgical Precautions: Falls,Cardiac,Diabetic,[place],Sternal Braces Applied: Cardiac,Sternal Home Living: Lives With: Alone Home Adaptive Equipment: None Home Living Comments: 2nd floor apartment Home Layout: Multi-level Home Access: Stairs to enter with rails Entrance Stairs-Rails: (B/L) Entrance Stairs-Number of Steps: 17 Prior Level of Function: Level of [place]: Independent with ADLs and functional transfers, Independent with homemaking with ambulation Receives Help From: Family, Friends ADL Assistance: Independent Homemaking Assistance: Independent Vocational: Retired (Since 07/23) Prior Functioning: Everyday Activities Self Care: Independent Indoor Mobility (Ambulation): Independent Stairs: Independent Functional Cognition: Independent Prior Device Use: None of the given options Pain: Pain Assessment Pain Assessment: 0-10 (09/08/2024952) Pain Score: 7 (09/08/2024952) Pain Type: (Lateral aspect/Left chest wall/Left upper arm) (09/08/2024952) Patient's Stated Pain Goal: No pain (09/08/2024952) Pain Interventions: Medication (See MAR) (She was pre-medicated by Nursing prior to initiation of PT) (09/08/2024952) General Assessments: Dyspnea Occurrence: None Activity Tolerance: Endurance: Tolerates 30 min exercise with multiple rests Sitting Balance: Moves/returns truncal midpoint more than 2 inches in all planes Early Mobility/Exercise Safety Screen: Proceed with mobilization - No exclusion criteria met Functional Limitation in Range of Motion: Upper Extremity (Shoulder, Elbow, Wrist, Hand): No impairment Lower Extremity (Hip, Knee, Ankle, Foot): No impairment Balance: Balance During Transitions and Walking Moving From Seated to Standing Position: Steady at all times Iscvory-Gl-Ubdjuis Transfer (Transfer Between Bed and Chair or Wheelchair): Steady at all times Postural Control: Static Sitting Balance: Static Sitting Balance Static Sitting-Balance Support: No upper extremity supported, Feet supported Dynamic Sitting Balance: Dynamic Sitting Balance Dynamic Sitting-Balance Support: No upper extremity supported, Feet supported Static Standing Balance: Static Standing Balance Static Standing-Balance Support: Right upper extremity supported, Left upper extremity supported Static Standing-Level of Assistance: Setup/clean up assistance Dynamic Standing Balance: Dynamic Standing Balance Dynamic Standing-Balance Support: Right upper extremity supported, Left upper extremity supported Coordination: Coordination Movements are Fluid and Coordinated: Yes Vision: Vision - Basic Assessment Current Vision: No visual deficits Cognition: Overall Cognitive Status: Within Functional Limits Behavior/Cognition: Alert, Cooperative, Pleasant mood Orientation Level: Oriented X4 Sensation: Sensation Light Touch: No apparent deficits Sharp/Dull: No apparent deficits Functional Assessments: Bed Mobility: Bed Mobility Bed Mobility: Yes Bed Mobility 1 Bed Mobility From 1: Supine Bed Mobility Type 1: To Bed Mobility to 1: Short sit Level of Assistance 1: Independent Transfers: Transfers Transfer: Yes Transfer 1 Transfer From 1: Bed, Wheelchair Transfer Type 1: To and from Transfer to 1: Wheelchair, Bed Technique 1: Stand pivot Level of Assistance 1: Supervision/touching assistance Ambulation 1: Surface 1: Level tile Device 1: No device Assistance 1: Supervision/touching assistance Quality of Gait 1: Decreased B/L arms swings,narrow REAGAN,decreased B/L arms swings Comments/Distance (ft) 1: 75 feet x 2 CARE Scores: Roll Left and Right: Assistance Needed: Independent CARE Score - Roll Left and Right: 6 Sit to Lying: Assistance Needed: Independent CARE Score - Sit to Lyin Lying to Sitting on Side of Bed: Assistance Needed: Independent CARE Score - Lying to Sitting on Side of Bed: 6 Sit to Stand: Assistance Needed: Supervision CARE Score - Sit to Stand: 4 Chair/Uuj-md-Liacu Transfer: Assistance Needed: Supervision CARE Score - Chair/Qym-zz-Vgkes Transfer: 4 Toilet Transfer: Assistance Needed: Supervision CARE Score - Toilet Transfer: 4 Car Transfer: Reason if not Attempted: Medical concerns CARE Score - Car Transfer: 88 Walk 10 Feet: Assistance Needed: Supervision CARE Score - Walk 10 Feet: 4 Walk 50 Feet with Turns: Assistance Needed: Supervision CARE Score - Walk 50 Feet with Two Turns: 4 Walk 150 Feet: Reason if not Attempted: Medical concerns CARE Score - Walk 150 Feet: 88 Walk 10 Feet on Uneven Surface: Reason if not Attempted: Activity not applicable CARE Score - Walking 10 Feet on Uneven Surfaces: 9 1 Step (Curb): Reason if not Attempted: Medical concerns CARE Score - 1 Step (Curb): 88 4 Steps: Reason if not Attempted: Medical concerns CARE Score - 4 Steps: 88 12 Steps: Reason if not Attempted: Medical concerns CARE Score - 12 Steps: 88 Picking Up Object: Reason if not Attempted: Medical concerns CARE Score - Picking Up Object: 88 Wheel 50 Feet with Turns: Reason if not Attempted: Activity not applicable CARE Score - Wheel 50 Feet with Two Turns: 9 Wheel 150 Feet: Reason if not Attempted: Medical concerns CARE Score - Wheel 150 Feet: 88 Extremity Assessments: Right Upper Extremity: RUE Assessment RUE Assessment: Within Functional Limits Left Upper Extremity: LUE Assessment LUE Assessment: Within Functional Limits Right Lower Extermity: RLE Assessment RLE Assessment: (4/5) Left Lower Extremity: LLE Assessment LLE Assessment: Within Functional Limits Objective Metrics: Time Up and Go: Unable without assistance Treatment: Therapeutic Exercise: AROM ex RLE in sitting and in supported standing x 20 reps each of hips fle/ext/add/abd to enhance balance and limbs advancement during functional in/out of bed activities Equipment Used: Omnicycle x 10 mins using neuro mode with 2# resistance to facilitate cardiovascular and neuromuscular endurance Patient Education: Education Documentation Home Exercise Program, taught by Javi Davis PT at 09/08/2024 1:25 PM. Learner: Patient Readiness: Acceptance Method: Demonstration, Explanation Response: Verbalizes Understanding, Demonstrated Understanding Physical Therapy Plan of Care, taught by Javi Davis PT at 09/08/2024 1:25 PM. Learner: Patient Readiness: Acceptance Method: Demonstration, Explanation Response: Verbalizes Understanding, Demonstrated Understanding Precautions, taught by Javi Davis PT at 09/08/2024 1:25 PM. Learner: Patient Readiness: Acceptance Method: Demonstration, Explanation Response: Verbalizes Understanding, Demonstrated Understanding Mobility, taught by Javi Davis PT at 09/08/2024 1:25 PM. Learner: Patient Readiness: Acceptance Method: Demonstration, Explanation Response: Verbalizes Understanding, Demonstrated Understanding Education Comments No comments found. Goals: Encounter Goals Encounter Goals (Active) Patient will progress to ambulate on even surface using LRAD/No AD with Mod I for >500 feet and with good balance Start: 09/08/24 Expected End: 10/09/24 Patient will progress ascending and descending 17 steps with unilaterall or bilateral rails in appropriate manner with Mod I Start: 09/08/24 Expected End: 10/09/24 Within 2 weeks of starting therapy, the patient and/or family/caregiver will demonstrate independence and be compliant in a written HEP in order to maximize gains made during therapy. Start: 09/08/24 Expected End: 10/09/24 Improve RLE Muscle strength to 5/5 in order to facilitate improved functional mobility and ambulation. Start: 09/08/24 Expected End: 10/09/24 Patient will participate in dynamic standing balance activities with Mod I for 10 minutes in order to decrease LOB and facilitate safe functional mobility. Start: 09/08/24 Expected End: 10/09/24 Patient will progress level surface transfers to independence Start: 09/08/24 Expected End: 10/09/24 Assessment & Plan Assessment:Assessment Results: Decreased strength, Decreased endurance, Impaired balance, Decreased mobility, Pain Prognosis: Good Evaluation/Treatment Tolerance: Patient tolerated treatment well Medical Staff Made Aware: Yes Strengths: Ability to acquire knowledge, Attitude of self, Coping skills, Insight into deficits, Support of extended family/friends Plan:Treatment Plan/Goals Established with Patient/Caregiver: Yes Treatment/Interventions: Bed mobility training, Balance training, Caregiver training, Functional activities, Gait training, Neuromuscular re-education PT Plan: Skilled PT PT Frequency: 5 times per week for 60 days PT Discharge Recommendations: (To be determined) Equipment Recommended: (To be determined) Javi Davis PT,DPT * Sharon Howell LVN - 09/07/2024 8:57 PM CDT Pt received from [facility] with diagnosis of CAD, had CABG done, on 08/26/2024, HX of diabetes mellitus, hypertension with hypertensive heart disease, PAD, arrived via wheelchair, accompanied by spouse, on room air, respiration even and unlabored, denies pain, no discomfort noted, has surgical incision to proxima, right pretibial, sternum, right pretibial and anterior proximal right thigh, with dressing CDI, continent with assist to bathroom, bed in low position, call light placed within reach, medication reconciled with Dr. Anderson options trader for Dr [place] and remains in stable condition. [id number] 11:43:43Pending Results Scheduled Orders Name Type Priority Associated Diagnoses Order Schedule POCT glucose meter docked device Point of Care Testing - Docked Device Routine Every 15 minutes as needed until discontinued starting 09/07/2024, 1 completed Wound Care Procedures Routine Once for 1 Occurrences starting 09/08/2024 until 09/08/2024 Wound Care Procedures Routine Daily until discontinued starting 09/09/2024 ECG 12 lead ECG Routine Once for 1 Occurrences starting 09/12/2024 until 09/12/2024 Basic Metabolic Panel Lab Routine Morning draw (La b) for 1 Occurrences starting 09/15/2024 until 09/15/2024 Urine Culture Microbiology Routine Once (Lab ) for 1 Occurrences starting 09/13/2024 until 09/13/2024 Basic Metabolic Panel Lab Routine Morning draw (La b) for 1 Occurrences starting 09/14/2024 until 09/14/2024 Health Maintenance Due Date Last Done Comments CT Colonography 1955 Colonoscopy 1955 Colorectal Cancer Screening 1955 FIT-DNA 1955 FIT 1955 FOBT 1955 Medicare Annual Wellness (AWV) 1955 Sigmoidoscopy 1955 Diabetes: Foot Exam 10/17/1965 Respiratory Syncytial Virus (RSV) or >=60 (1 - Risk 60-74 years 1-dose series) 2015 Pneumococcal Vaccine: 50+ Years (2 of 2 - PCV) 02/19/2018 02/19/2017 Diabetes: Retinopathy Screening 09/19/2023 09/18/2022, 03/17/2022, 11/07/2021 Diabetes: Urine Protein Screening 01/08/2024 01/07/2023, 09/30/2022, 06/11/2021 Zoster Vaccines (3 of 3) 04/12/2024 02/16/2024, 01/28 Diabetes: Hemoglobin A1C 11/22/2024 025, 06/24/2024, 01/07/2023, Additional history exists Lipid Panel 08/25/2025 08/25/2024, 05/30, 09/30/2022, Additional history exists Mammogram 05/10/2026 05/10/2024, 09/19/2021 DTaP/Tdap/Td Vaccines (2 - Td or Tdap) 02/19/2027 02/19/2017, 11/13/2008 Bone Density Scan Completed 04/18/2021, 04/18/2021 Influenza Vaccine Completed 09/12/2024, , 05/04/2022, Additional history exists HIB Vaccines Aged Out No longer eligi ble based on patient's age to complete this topic HPV Vaccines Aged Out No longer eligi ble based on patient's age to complete this topic Hepatitis A Vaccines Aged Out No long er eligible based on patient's age to complete this topic Hepatitis B Vaccines Aged Out No long er eligible based on patient's age to complete this topic IPV Vaccines Aged Out No longer eligi ble based on patient's age to complete this topic Meningococcal Vaccine Aged Out No berta juli eligible based on patient's age to complete this topic Rotavirus Vaccines Aged Out No longer eligible based on patient's age to complete this topic [id number] 11:43[facility]43 [id number] 11:43:43 Diagnosis 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 - Prima ry Pain Generalized pain Hyperglycemia Other abnormal glucose Open-angle glaucoma, unspeci fied glaucoma stage, unspecified laterality, unspecified open-angle glaucoma type Constipation, unspecified co nstipation type Hyperlipidemia, unspecified hyperlipidemia type Hypokalemia Hypopotassemia Glaucoma, unspecified glauco ma type, unspecified laterality Bilateral ocular hypertensio n Blood clot in vein Embolism and thrombosis of unspecified site 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 (HCC) Cerebral edema (CMS/HCC) (HCC) Cerebral edema Hypoglycemia Hypoglycemia, unspecified Shortness of breath Flu vaccine need Need for pneumococcal vaccine Need for prophylactic vaccination against streptococcus pneumoniae (pneumococcus) Screening-pulmonary TB Screening examination for pulmonary tuberculosis Pain Generalized pain Hyperglycemia Other abnormal glucose Open-angle glaucoma Unspecified open-angle glaucoma Constipation Unspecified constipation Hyperlipidemia Other and unspecified hyperlipidemia Hypokalemia Hypopotassemia Glaucoma Unspecified glaucoma Bilateral ocular hypertensio n Blood clot in vein Embolism and thrombosis of unspecified site 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 (HCC) Cerebral edema (CMS/HCC) (HCC) Cerebral edema Hypoglycemia Hypoglycemia, unspecified S/P CABG x 4 Postsurgical aortocoronary bypass status Diabetes mellitus, type 2 ([facility]) Type II or unspecified type diabetes mellitus without mention of complication, not stated as uncontrolled Acute blood loss anemia (ABL A) Primary hypertension Unspecified essential hypertension Flu vaccine need Need for pneumococcal vaccine Need for prophylactic vaccination against streptococcus pneumoniae (pneumococcus) Screening-pulmonary TB Screening examination for pulmonary tuberculosis Insomnia Insomnia, unspecified [id number] 11:43:43 [place] [id number] 02:40:00 Associated Order(s): ECG 12 lead; Critical Care History of Present Illness: Chief Complaint: Patient presents with Fever Patient from [place]; Fever of 102.4F oral; Patient had cardiac Sx Aug 26 68 year old female with PMhx of CAD, DM, HTN, PAD, recent CABG on 08/26/24, presents to the ED from [place] via EMS for evalaution shortness of breath onset 50 minutes. Patient states she became short of breath and called 911. Upon EMS arrival, shortness of breath had resolved however patient was found to be febrile at 102.4 F and tachycardic. Currently patient denies any shortness of breath nor has any associated chest pain, nausea, vomiting or cough. No other complaints were provided at this time. History provided by: Patient and EMS personnel director of housing and energy services used: No PCP: Diane Aguilera MD PMHx: CAD, DM, HTN, PAD PSHx: CABG x4 PSocHx: Denies Meds: PMHx: Patient History Medical History[1] Surgical History[2] Family History[3] Social History: Tobacco Use Smoking status: Never Passive exposure: Never Smokeless tobacco: Never Vaping Use Vaping status: Never Used Substance Use Topics Alcohol use: Yes Comment: 1-2 per year Drug use: Never Review of Systems: Review of Systems Constitutional: Negative for chills and fever. HENT: Negative for ear pain and sore throat. Eyes: Negative for pain and visual disturbance. Respiratory: Negative for cough and shortness of breath. Cardiovascular: Negative for chest pain and palpitations. Gastrointestinal: Negative for abdominal pain, nausea and vomiting. Genitourinary: Negative for dysuria and hematuria. Musculoskeletal: Negative for arthralgias and back pain. Skin: Negative for color change and rash. Neurological: Negative for seizures and syncope. All other systems reviewed and are negative. Triage Vitals: BP: (!) 128/51, Heart Rate: 100, Temp: (!) 38.2 ?C (100.8 ?F), Resp: (!) 26, SpO2: 96 %, Height: 165.1 cm (5' 5"), Weight: 80.1 kg (176 lb 9.4 oz) Physical Exam: Vitals and nursing note reviewed. Constitutional: General: She is not in acute distress. Appearance: She is well-developed. Comments: Febrile at 100.8 F HENT: Head: Normocephalic and atraumatic. Eyes: Conjunctiva/sclera: Conjunctivae normal. Cardiovascular: Rate and Rhythm: Regular rhythm. Tachycardia present. Heart sounds: No murmur heard. Pulmonary: Effort: Pulmonary effort is normal. No respiratory distress. Breath sounds: Normal breath sounds. Abdominal: Palpations: Abdomen is soft. Tenderness: There is no abdominal tenderness. Musculoskeletal: General: No swelling. Cervical back: Neck supple. Skin: General: Skin is warm and dry. Capillary Refill: Capillary refill takes less than 2 seconds. Neurological: Mental Status: She is alert. Psychiatric: Mood and Affect: Mood normal. Procedures Performed: ECG 12 lead Performed by: Manuel Wiggins MD Authorized by: Manuel Wiggins MD Comments: EKG September 14, 2024 time 242, sinus tachycardia, normal axis, T wave inversion lead I, aVL, V2, ST elevation in lead III borderline ST elevation in aVF, Q-wave noted in lead III, sinus rhythm, I reviewed interpreted this EKG contemporaneously Critical Care Performed by: Manuel Wiggins MD Authorized by: Manuel Wiggins MD Comments: Critical Care Performed by: Manuel Wiggins MD Authorized by: Manuel Wiggins MD Critical care provider statement: Critical care time (minutes): 37 Critical care time was exclusive of: Separately billable procedures and treating other patients and teaching time Critical care was necessary to treat or prevent imminent or life-threatening deterioration of the following conditions: Cardiac failure (NSTEMI) Critical care was time spent personally by me on the following activities: Ordering and performing treatments and interventions, ordering and review of laboratory studies, ordering and review of radiographic studies, pulse oximetry, re-evaluation of patient's condition, review of old charts, examination of patient and discussions with consultants I assumed direction of critical care for this patient from another provider in my specialty: no Care discussed with: admitting provider Comments: - The patient presents with an illness or injury that acutely impaired one or more vital organ systems. - There was a high probability of imminent or life threatening deterioration in the patient's condition during their evaluation in the ED. - This is the total time spent evaluating, reviewing information in the electronic medical record, coordinating, managing, and providing care to the critical patient, as well as time spent in documenting such activities. - This time is exclusive of time required to perform procedures required during patient management Patient treated with IV heparin bolus and drip with cardiology consultation, also consulted vascular surgery for clearance before giving heparin in the setting of recent thoracic surgery.. ED Course : Medical Decision Making Amount and/or Complexity of Data Reviewed Independent Historian: EMS External Data Reviewed: notes. Details: Reviewed 08/26/24 discharge summary. See ED course Labs: ordered. Radiology: ordered. ECG/medicine tests: ordered and independent interpretation performed. Risk OTC drugs. Prescription drug management. STEMI, NSTEMI, dehydration, pneumonia, CONSIDERED CONDITION WITH THE POTENTIAL FOR SIGNIFICANT MORBIDITY AND/OR MORTALITY Patient is 68-year-old woman who presents today in relation to shortness of breath, her initial EKG is a computer interpretation of STEMI and I see some findings concerning for ischemia. I reviewed the EKG with cardiology who is on-call for interventional cardiology given the STEMI concern, they recommend heparinization if troponins elevated in the context of this EKG finding they recommended no Drapery Rod Assembler activation at this time which seems reasonable given patient is asymptomatic at this time, patient is admitted for further treatment and management. ED Course: as of 09/15/24 0356 ThuSep 14, [address] Borrero, states wants heperain drip started if troponin is positive. No lab support tech activation [LP] [id number] Reviewed prior discharge summary Admission Discharged 08/26/2024 - 09/07/2024 (12 days) [facility] Annie Ledezma MD Last attending ? Treatment team 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 Principal problem Discharge Summary Annie Ledezma MD (Physician) ? Internal Medicine Discharge Diagnosis 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 S/p CABG x 4 Hospital Course 68 y.o. female presenting with a history of CAD, diabetes mellitus, hypertension with associated hypertensive heart disease, and peripheral arterial disease who was found to have significant multivessel CAD on cardiac workup, she underwent CABG procedure on August 26 and was admitted to CVICU postprocedure, she had 2 episodes of decreased responsiveness postop on POD #1. Carotid ultrasound showed no hemodynamically significant stenosis, and echocardiogram shows ejection fraction of 45%. She was weaned off pressor, hemodynamic stable, she was found to have orthostatic hypotension, otherwise she remained hemodynamic stable, she was downgraded to medical floor on September 01, chest tube was removed on September 02, she was remained on aspirin, Plavix and statin, she is deconditioned and has shortness of breath with exertion, she has anemia requiring total 3 unit PRBC transfusion, she has been getting IV diuretics to optimize volume status, although she has been gradually improving, hemodynamic stable, volume status improved, hemoglobin improved and stable, he is accepted by nursing home facility and is cleared by cardiology and thoracic surgery for discharge with outpatient follow-up. Operative Procedures Performed Procedure(s): ON PUMP CORONARY ARTERY BYPASS GRAFT X 4; LEFT INTERNAL MAMMARY ARTERY HARVEST; RIGHT ENDOSCOPIC SAPHENOUS VEIN HARVEST; WITH TRANSESOPHAGEAL ECHOCARDIOGRAM; 35 MM ATRICLIP LEFT ATRIAL APPENDAGE EXCLUSION; INSERTION OF CHEST TUBES; INSERTION OF ATRIAL AND VENTRICULAR PACING WIRES ENDOSCOPIC VEIN HARVESTING ECHOCARDIOGRAM, TRANSESOPHAGEAL [LP] [id number] Directed staff to call lab regarding delay in troponin processing [AF] [id number] Dr. Lucas calls back after he is paged. I review the new development of a small pericardial effusion with him as well as the elevated troponin and fever and complaint of shortness of breath which is resolved, he says it is not a contraindication to heparin and it is okay to treat with heparin in this scenario, [AF] ED Course: User Index [AF] Manuel iWggins MD [LP] Brianna Miguel II Diagnoses as of 09/15/24 0356 Acute non-ST elevation myocardial infarction (NSTEMI) ([facility]/HCC) ([facility]) Acute febrile illness Pericardial effusion Abnormal EKG Last Recorded Vitals: BP: (!) 135/53, Heart Rate: 84, Temp: 37.1 ?C (98.8 ?F), Resp: 18, SpO2: 99 %, Height: 165.1 cm (5' 5"), Weight: 79.8 kg (175 lb 14.8 oz) Medications Medications aspirin chewable tablet 81 mg (81 mg Oral Not Given 09/14/24 0900) dextrose 50 % solution 12.5 g (has no administration in time range) dextrose 50 % solution 25 g (has no administration in time range) glucagon injection 1 mg (has no administration in time range) carvedilol (Coreg) tablet 3.125 mg (3.125 mg Oral Given 09/14/24 1618) rosuvastatin (Crestor) tablet 20 mg (20 mg Oral Given 09/14/24 1206) clopidogrel (Plavix) tablet 75 mg (75 mg Oral Given 09/14/24 0951) insulin glargine (Lantus) injection 40 Units (40 Units Subcutaneous Given 09/14/242058) dextrose 50 % solution 12.5 g (has no administration in time range) dextrose 50 % solution 25 g (has no administration in time range) insulin lispro (HumaLOG, Admelog) injection 4-16 Units (12 Units Subcutaneous Given 09/14/24 1723) cefepime (Maxipime) 2 g in sodium chloride 0.9 % 100 mL IVPB-MB+ (2 g Intravenous Given 09/15/24 0339) furosemide (Lasix) injection 40 mg (40 mg Intravenous Given 09/14/24 1346) acetaminophen (Tylenol) tablet 650 mg (650 mg Oral Given 09/15/24 0306) Or acetaminophen (Tylenol) solution 650 mg ( Oral See Alternative 09/15/24 0306) Or acetaminophen (Tylenol) suppository 650 mg ( Rectal See Alternative 09/15/24 0306) cefepime (Maxipime) 2 g in sterile water injection (2 g Intravenous Given 09/14/24 0347) vancomycin in NS (Vancocin) IVPB 2,000 mg (0 mg Intravenous Stopped 09/14/24 0556) iohexol (OMNIPaque) 350 MG/ML injection 100 mL (85 mL Intravenous Given 09/14/24 0331) aspirin chewable tablet 324 mg (324 mg Oral Given 09/14/24 0507) heparin 1000 units/mL injection 4,000 Units (4,000 Units Intravenous Given 09/14/24 0535) furosemide (Lasix) injection 40 mg (40 mg Intravenous Given 09/14/24 0644) Labs Ordered and Reviewed Labs Reviewed BLOOD CULTURE - Abnormal Result Value Blood Culture Culture in progress Gram Stain Gram negative rods (*) Narrative: E. coli detected by [email or web address] nucleic acid test. BLOOD CULTURE - Abnormal Blood Culture Culture in progress Gram Stain Gram negative rods (*) BASIC METABOLIC PANEL - Abnormal Glucose Lvl 225 (*) BUN 26 (*) Creatinine Lvl 1.16 (*) Sodium Lvl 133 (*) Potassium Lvl 3.9 Chloride Lvl 98 CO2 Lvl 22.5 Anion Gap 16.4 Calcium Lvl 9.5 eGFR 51 (*) B-TYPE NATRIURETIC PEPTIDE - Abnormal Natriuretic Peptide B 1,061 (*) HEPATIC FUNCTION PANEL - Abnormal Protein 8.0 Albumin Lvl 3.7 Bilirubin Total 1.58 (*) Bilirubin Direct 0.8 (*) Bilirubin Indirect 0.8 Alkaline Phosphatase 148 (*) AST 41 (*) ALT 9 Globulin, Calc 4.3 (*) Albumin/Globulin Ratio 0.86 LACTIC ACID LEVEL - Abnormal Lactic Acid Lvl 2.40 (*) LIPASE LEVEL - Abnormal Lipase Lvl 79 (*) PROCALCITONIN LEVEL - Abnormal Procalcitonin 10.80 (*) UA WITH CULTURE IF INDICATED - Abnormal UA Color Yellow UA Turbidity Moderate (*) UA Spec Grav >=1.050 (*) UA pH 5.0 UA Protein 100 (*) UA Glucose 500 (*) UA Ketones Trace (*) UA Bilirubin Negative UA Blood Moderate (*) UA Urobilinogen <=1.0 UA Nitrite Negative UA Leuk Esterase Large (*) UA Ascorbic Acid Negative UA Sq Epi Many (*) UA WBC >182 (*) UA RBC (Num) 14 (*) UA Bacteria Moderate (*) UA Mucus Few TROPONIN I HIGH SENSITIVITY CARESET (BASELINE) - Abnormal HS Troponin I Baseline 562 (*) COMPLETE BLOOD COUNT - Abnormal WBC 11.98 (*) RBC 4.23 NRBC % 0.0 Hgb 10.9 Hct 34.5 MCV 81.6 MCH 25.8 MCHC 31.6 RDW - SD 67.7 (*) Plt Count 226 MPV 9.0 TROPONIN I HIGH SENSITIVITY CARESET (1ST HR) - Abnormal HS Troponin I 1 Hour 544 (*) HS Troponin I 0 to 1 Hour Delta -18 MANUAL DIFFERENTIAL - Abnormal Segs % Man 72 (*) Lymphs % Man 8 (*) Monos % Man 4 Eos % Man 1 Segs # Man 8.63 (*) Lymphs # Man 0.96 (*) Monos # Man 0.48 Eos # Man 0.12 Bands % Man 14 (*) Metamyelocytes % Man 1 Plt Morph Normal Toxic Gran Present (*) Neut Vac Present (*) PROTIME-INR - Abnormal Prothrombin Time (PT) 18.1 (*) INR 1.48 (*) COMPLETE BLOOD COUNT - Abnormal WBC 17.43 (*) RBC 3.99 NRBC % 0.0 Hgb 10.2 (*) Hct 32.6 (*) MCV 81.7 MCH 25.6 MCHC 31.3 RDW - SD 68.7 (*) Plt Count 220 MPV 10.0 AUTOMATED DIFFERENTIAL - Abnormal Segs % 74.4 (*) Lymphs % 8.6 (*) Monos % 15.0 (*) Eos % 0.1 (*) Basos % 0.2 Immature Grans % 1.7 (*) Segs # 12.95 (*) Lymphs # 1.50 Monos # 2.62 (*) Eos # 0.02 Basos # 0.04 Imm Grans # 0.30 (*) GRAM NEGATIVE BLOOD CULTURE EUGENE - Abnormal K. oxytoca Not Detected E. coli Detected (*) K. pneumoniae Not Detected P. aeruginosa Not Detected Acinetobacter spp. Not Detected Citrobacter spp. Not Detected Enterobacter spp. Not Detected Proteus spp. Not Detected CTX-M (ESBL) Not Detected IMP (carbapenemase) Not Detected KPC (carbapenemase) Not Detected NDM (carbapenemase) Not Detected OXA (carbapenemase) Not Detected VIM (carbapenemase) Not Detected Narrative: Assay is a multiplex real-time PCR test for the qualitative identification of genus, species and genetic resistance markers for a panel of gram negative bacteria directly from positive blood culture bottles. This assay utilizes FDA cleared IVD reagents for Real-Time nucleic acid amplification (PCR). Performace characteristics have been verified by the [facility] within [facility]. The [facility] is authorized under the Clinical Laboratory Improvement Amendments of 1988 (CLIA-88) to perform high complexity testing. POC GLUCOSE UNSOLICITED RESULTS - Abnormal POC Glu 229 (*) POC Glu Comment 1 Notified RN/MD POC Performing Location [facility] POC GLUCOSE UNSOLICITED RESULTS - Abnormal POC Glu 277 (*) POC Glu Comment 1 Notified RN/MD POC Performing Location [facility] POC GLUCOSE UNSOLICITED RESULTS - Abnormal POC Glu 292 (*) POC Performing Location [facility] INFLUENZA A/B ANTIGENS - Normal Influenza A Ag Negative Influenza B Ag Negative CREATINE KINASE (CK TOTAL) - Normal CK Total 51 PTT - Normal PTT 33.6 TRANSPLANT RESPIRATORY VIRAL PANEL - Normal Adenovirus PCR Not Detected Parainfluenza type 1 Not Detected Parainfluenza type 2 Not Detected Parainfluenza type 3 Not Detected Parainfluenza type 4 Not Detected Influenza A PCR Not Detected Influenza A H1 PCR Not Detected Influenza A H3 PCR Not Detected Influenza B PCR Not Detected RSV A PCR Not Detected RSV B PCR Not Detected Metapneumovirus Not Detected Rhinovirus PCR Not Detected Narrative: This assay is a multiplex real-time PCR test for the qualitative detection and discrimination of respiratory viruses. A negative result does not rule out the presence of these viruses. The specimen may contain polymerase chain reaction (PCR) inhibitors or virus below the detectable limits of the assay. Results should not be used as the sole basis for clinical diagnosis, treatment or patient management. This assay utilizes FDA cleared IVD reagents for Real-Time nucleic acid amplification (PCR) when testing nasopharyngeal swabs. This assay is not FDA approved for use in bronchoalveolar lavage (BAL) specimens. Performance characteristics have been verified by the [facility]. The [facility] is authorized under the Clinical Laboratory Improvement Amendments of 1988 (CLIA-88) to perform high complexity testing. LACTIC ACID WITH 2 HOUR REFLEX - Normal Lactic Acid Lvl 1.72 URINE CULTURE BLOOD GAS, VENOUS Temp Milton 37.0 pH Milton 7.40 PCO2 Milton 39 PO2 Milton 33 HCO3 Milton 24.2 BE Milton -1 O2 Sat Milton 63.6 COMPLETE BLOOD COUNT W/DIFF AND PLATELET Narrative: The following orders were created for panel order Complete Blood Count w/Diff and Platelet. Procedure Abnormality Status --------- ------ Complete Blood Count[[id number]] Abnormal Final result Automated Differential[[id number]] Final result Please view results for these tests on the individual orders. D-DIMER, QUANTITATIVE D-Dimer 5.35 TROPONIN I HIGH SENSITIVITY CARESET Narrative: The following orders were created for panel order Troponin I High Sensitivity Careset. Procedure Abnormality Status --------- ------ Troponin I High Sensitiv...[[id number]] Abnormal Final result Troponin I High Sensitiv...[[id number]] Abnormal Final result Please view results for these tests on the individual orders. AUTOMATED DIFFERENTIAL Narrative: See Manual Differential REFLEX MAN DIFF AND MORPH - DO NOT ORDER COMPLETE BLOOD COUNT W/DIFF AND PLATELET Narrative: The following orders were created for panel order Complete Blood Count w/Diff and Platelet. Procedure Abnormality Status --------- ------ Complete Blood Count[[id number]] Abnormal Final result Automated Differential[[id number]] Abnormal Final result Please view results for these tests on the individual orders. CORONAVIRUS (COVID-19) DMITRY MRSA BY PCR COMPLETE BLOOD COUNT W/DIFF AND PLATELET Narrative: The following orders were created for panel order Complete Blood Count w/Diff and Platelet. Procedure Abnormality Status --------- ------ Complete Blood Count[[id number]] Automated Differential[[id number]] Please view results for these tests on the individual orders. BASIC METABOLIC PANEL MAGNESIUM LEVEL HEPATIC FUNCTION PANEL COMPLETE BLOOD COUNT AUTOMATED DIFFERENTIAL POCT GLUCOSE METER POCT GLUCOSE METER POCT GLUCOSE METER POCT GLUCOSE METER POCT GLUCOSE METER POCT GLUCOSE METER POCT GLUCOSE METER POCT GLUCOSE METER POCT GLUCOSE METER POCT GLUCOSE METER POCT GLUCOSE METER POCT GLUCOSE METER Initial troponin elevated in the 500s concerning for ischemia. Radiology Interpretations CT angiogram chest pulmonary embolism Final Result No evidence of pulmonary embolism. Trace left pleural effusion and dense atelectasis, improved from 09/04/2024. Stable mild cardiomegaly and small pericardial effusion including fluid in the superior pericardial recess. Electronically signed by: Ksenia Morales MD 09/14/2024 03:51 AM CDT RP XR chest 1 view Final Result Impression: Stable chest/no change. Electronically signed by: Johnathon Latif MD 09/14/2024 03:06 AM REVENTIVET RP I reviewed the CTA of the chest and there was no central PE on my review of CT imaging. Impression Final diagnoses: [I21.4] Acute non-ST elevation myocardial infarction (NSTEMI) (CMS/HCC) (HCC) [R50.9] Acute febrile illness [I31.39] Pericardial effusion [R94.31] Abnormal EKG Prescriptions Current Discharge Medication List Disposition: Admit/Observation Data Reviewed PROBLEMS ADDRESSED [ x ] Patient presents with a problem that potentially represents a highly morbid condition with a possible threat to life or bodily function. DATA REVIEWED AND ANALYZED Category 1: Test, documents, or independent historians Additional history was required and obtained from: [ ] Family/Friends [ x ] EMS/PD [ ] PCP/Specialist [ ] Other: Prior documentation reviewed: [ ] Prior ER [ ] H&P [ ] Clinic [ ] Leaf Sucker Operator [ x ] DC Summary [ ] Procedure [ ] External pharmacy records [ ] Transfer papers [ ] PDMP [ ] Other: Prior test results reviewed: [ ] Serum labs [ ] Radiographs [ ] Cultures [ ] EKG [ ] Echo [ ] Other: [ X ] Tests were ordered and the results were independently reviewed by me [ ] Tests considered but not ordered: Category 2: Independent interpretation of tests [ X ] Tests were independently viewed and interpreted by me Category 3: Discussion of management with another professional [ x ] Leaf Sucker Operator [ ] Admitting service [ ] Radiology [ ] Behavioral Health [ ] Other: PATIENT MANAGEMENT (risk of complications and morbidity or mortality) [ ] Prescription Drug Management [ ] Decision regarding minor surgery/procedure with identified patient or procedure risk factors [ ] Decision regarding major surgery/procedure with identified patient or procedure risk factors [ ] Social Determinates of health addressed: [ ] Poor access to care -- resources/referrals given [ ] Poor health literacy -- education provided [ ] Difficulty filling meds -- Good Rx cards and resources provided [ ] Non-[place] -- antitank assault gunner 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 [ ] Other: I, Brianna Rivera II, am scribing for and in the presence of Manuel Wiggins MD at 2:59 AM 09/14/24 I personally performed the services described in documentation, reviewed and edited the documentation which was dictated to the scribe in my presence, and it accurately records my words and actions. [1] Past Medical History: Diagnosis Date Coronary artery disease Diabetes mellitus (HCC) Heart disease Hyperlipidemia 09/07/2024 Hypertension Hypotension Peripheral artery disease (HCC) [2] Past Surgical History: Procedure Laterality Date CATARACT EXTRACTION 2009 and 2012 RETINAL DETACHMENT SURGERY Right 2013 [3] Family History: Problem Relation Name Age of Onset Heart disease Mother Stroke Mother Diabetes Sister Manuel Wiggins MD 09/15/24 0358 [facility]2025-03-19 02:29:44 Nursing Note [facility] SBAR CHECKLIST Before calling physician: I evaluated the resident by taking vital signs and other appropriate tools (POC blood sugar check, lung sounds, bowel sounds, pedal pulses, etc.) S-SITUATION The problem/symptom being reported is related to: SIRS/Sepsis Alert This situation started on 0145H and has gotten worse. 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 Recent Shift Event(s): yes Recent Medication Changes (n/a if none): Bactrim ds Pertinent Advanced Directives: Full Code A-ASSESSMENT Last 4 Vitals 09/13/24 1500 09/13/24 1700 09/13/24 2039 09/14/24 0145 BP: 128/76 127/70 (!) 112/59 (!) 80/60 Pulse: 72 86 88 75 Resp: 20 20 22 Temp: 37.1 ?C (98.8 ?F) 36.3 ?C (97.3 ?F) (!) 38.4 ?C (101.1 ?F) SpO2: 97% 97% 96% Oxygen Therapy: None (Room air) None (Room air) Pain Rating Scale (DVPRS): Respiratory Status: Respiratory (WDL): Exceptions to WDL Respiratory Pattern: Tachypneic Respiratory Depth/Rhythm: Shallow Respiratory Effort: Labored Respiratory Effort Characteristics: Other (Comment) Dyspnea Occurrence: At rest, With exertion GI: Gastrointestinal (WDL): Within Defined Limits : Genitourinary (WDL): Within Defined Limits Urinary Incontinence: No Urine Color: Jessenia Urine Appearance: Cloudy Suprapubic Tenderness: No Genitourinary Symptoms: None Female Genitalia: Intact Other Assessments: Patient said nausea and chills R-RECOMMENDATION: I suggest or request reported to options trader MD NOTIFICATION: Provider Notified: Dr. Irene Anderson Provider Role: Other (Comment) (on-call MD) Method of Communication: Telephone Notification Time: 143 Armida Billings [id number] 00:16:48 Nursing Note Nursing Daily Note Resident v/s wnl's earlier on shift. Urine specimen sent to lab. Notified options trader MD of results. New order for abt initiated with no a/r noted. Resident refused her 1800 lantus since she did not eat any lunch and just had chicken soup for dinner, notified MD Anderson. BS done at 2230 169mg/dl. Resident had a glucose boost drink. Resting comfortably tonight. Stated she is feeling much better. Labs in am. Will recheck v/s at 0400. Nursing Assessment Neurological Neurological Neuro (WDL) : Within Defined Limits Orientation Level: Oriented X4 Cognition: Coherent Speech: Clear Swallow: Able to swallow solids and liquids without difficulty [place]obar Coma Scale Best Eye Response: Spontaneous Best Verbal Response: Oriented Best Motor Response: Follows commands [place] Coma Scale Score: 15 HEENT Head, Ears, Eyes, Nose, and Throat (WDL): Within Defined Limits Psychosocial Patient Behaviors/Mood: (pleasant and co-operative) Did the resident's behaviors or moods prevent you from providing any necessary care?: Provided all necessary care Wandering - Presence and Frequency: Resident has NOT wandered Needs Expressed: Physical Assistive Devices Respiratory Respiratory (WDL): Within Defined Limits Respiratory Interventions Cardiac Cardiac (WDL): Within Defined Limits Vascular/Neurovascular Peripheral Vascular Peripheral Vascular (WDL): Within Defined Limits Integumentary Integumentary (WDL): Exceptions to WDL Skin Condition: Dry Skin Temperature: Warm Ranjit Scale Sensory Perceptions: No impairment Moisture: Rarely moist Activity: Walks occasionally Mobility: Slightly limited Nutrition: Adequate Friction and Shear: No apparent problem Ranjit Scale Score: 20 Wound 08/26/24 Surgical Proximal;Right Pretibial (Active) Dressing Status Clean;Dry;Intact 09/13/241999 Drainage Amount None 09/13/24 1441 Site Assessment Other (Comment) (right pretibial) 09/13/241999 Cristina-Wound Assessment Dry;Intact 09/13/241999 Treatments Cleansed 09/13/24 1441 Dressing Other (Comment) (Apply dry dresg) 09/13/24 144 Dressing Changed Changed 09/13/24 1441 Number of days: 19 Wound 08/26/24 Surgical Sternum (Active) Dressing Status Clean;Dry;Intact 09/13/241999 Drainage Amount None 09/13/24 1443 Site Assessment Other (Comment) (sternum) 09/13/241999 Cristina-Wound Assessment Dry;Intact;Clean 09/13/241999 Treatments Cleansed 09/13/24 1443 Dressing Other (Comment) (Apply dry dresg) 09/13/24 1443 Dressing Changed Changed 09/13/24 1443 Number of days: 19 Wound 08/26/24 Surgical Right Pretibial (Active) Dressing Status Clean;Dry;Intact 09/13/241999 Drainage Amount Moderate 09/13/24 1440 Drainage Description Serosanguineous 09/13/24 1440 Site Assessment Other (Comment) (rt pretibial) 09/13/241999 Cristina-Wound Assessment Dry;Intact;Clean 09/13/241999 Treatments Cleansed 09/13/24 1440 Dressing Other (Comment) (Dry dresg) 09/13/24 1440 Dressing Changed Changed 09/13/24 1440 Number of days: 19 Wound 08/26/24 Surgical Anterior;Proximal;Right Thigh (Active) Dressing Status Clean;Dry;Intact 09/13/241999 Drainage Amount None 09/13/24 1442 Site Assessment Other (Comment) (right thigh) 09/13/241999 Cristina-Wound Assessment Intact;Dry;Clean 09/13/241999 Treatments Cleansed 09/13/24 1442 Dressing Other (Comment) (Apply dry dresg) 09/13/24 1442 Dressing Changed Changed 09/13/24 1442 Number of days: 19 Wound Medial Abdomen (Active) Dressing Status Clean;Dry;Intact 09/13/241999 Drainage Amount Moderate 09/13/24 1444 Drainage Description Serosanguineous 09/13/24 1444 Site Assessment Other (Comment) (abd) 09/13/241999 Cristina-Wound Assessment Intact;Dry;Clean 09/13/241999 Treatments Cleansed;Other (Comment) (Apply ca-alg) 09/13/24 1444 Dressing Other (Comment) (Apply dry dresg) 09/13/24 1444 Dressing Changed Changed 09/13/24 1444 Number of days: Musculoskeletal Musculoskeletal Musculoskeletal (WDL): Within Defined Limits Gastrointestinal Gastrointestinal Gastrointestinal (WDL): Within Defined Limits Genitourinary Genitourinary (WDL): Within Defined Limits Urinary Incontinence: No Urine Color: Jessenia Urine Appearance: Cloudy Suprapubic Tenderness: No Genitourinary Symptoms: None Female Genitalia: Intact Toileting Program Urinary Toileting Program Being Used: None Bowel Toileting Program Being Used: No Provider Notification Daily Cares/Safety Precautions Carmelita Rojas Fall Risk Activity Nutrition Hygiene Resident Preferences Activities of Daily Living Education Documentation No documentation found. Education Comments No comments found. Armida Billings LVN [facility] [id number] 15:10:00 Nursing Note [facility] SBAR CHECKLIST Before calling physician: Patient was shivering and vital signs Temp 100.9, Pulse 57, Pulse Oximeter 98% Room Air. BP 128/76 S-SITUATION The problem/symptom being reported is related to: (Normal Labs) This situation started on 1510 pm this afternoon has gotten better B-BACKGROUND Resident's Primary Diagnosis on Admission: Blood clot in vein [I82.90] Pertinent Medical History: The resident has 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; Diabetes mellitus, type 2 ([facility]); Primary hypertension; Ischemic cardiomyopathy; Acute blood loss anemia (ABLA); Macular degeneration; Cardiogenic shock (HCC); Acute post-operative pain; Superficial vein thrombosis; Open-angle glaucoma; Constipation; Hyperlipidemia; Hypokalemia; Glaucoma; Bilateral ocular hypertension; Acute on chronic systolic (congestive) heart failure (HCC); S/P CABG x 4; Cataract; 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 Recent Shift Event(s): Shivering and fever Recent Medication Changes (n/a if none): N/A Pertinent Advanced Directives: Full Code A-ASSESSMENT Last 4 Vitals 09/13/24 0500 09/13/24 0800 09/13/24 1053 09/13/24 1500 BP: 133/60 135/65 (!) 127/58 128/76 Pulse: 84 84 72 Resp: 18 18 20 Temp: 37 ?C (98.6 ?F) 37.1 ?C (98.8 ?F) SpO2: 99% 98% 97% Oxygen Therapy: None (Room air) Pain Rating Scale (DVPRS): Respiratory Status: Respiratory (WDL): Within Defined Limits Respiratory Pattern: (Regular) Respiratory Depth/Rhythm: Regular Respiratory Effort: Unlabored GI: Gastrointestinal (WDL): Within Defined Limits Abdomen Inspection: Soft : Genitourinary (WDL): Within Defined Limits Urinary Incontinence: No Urine Color: Yellow/straw Urine Appearance: Clear Suprapubic Tenderness: No Genitourinary Symptoms: None Female Genitalia: Intact Other Assessments: CBC,Procalcitonin, Covid , Urine Culture & Microscopic, Influenza A/B Antigen R-RECOMMENDATION: I suggest or request Labs and Diagnostic Test NOTIFICATION: Provider Notified: Dr Vaughan Provider Role: Resident Method of Communication: Call Notification Time: 1426 Kei Chau RN [facility]2025-03-18 12:25:52 Nursing Note Nursing Daily Note Patient received this morning with no distress noted. Blood sugar monitoring done and insulin coverage given as per order, medications administered with no adverse reaction noted. Will continue care as planned. BMP result reviewed by Resident Dr. Padilla new order. Nursing Assessment Neurological Neurological Neuro (WDL) : Exceptions to WDL Orientation Level: Oriented X4 Cognition: Coherent Speech: Clear Swallow: Able to swallow solids and liquids without difficulty Escobar Coma Scale Best Eye Response: Spontaneous Best Verbal Response: Oriented Best Motor Response: Follows commands [place] Coma Scale Score: 15 HEENT Head, Ears, Eyes, Nose, and Throat (WDL): Within Defined Limits Psychosocial Patient Behaviors/Mood: Other (Comment) Harmful Behavior: 1 Did the resident's behaviors or moods prevent you from providing any necessary care?: Provided all necessary care Wandering - Presence and Frequency: Resident has NOT wandered Needs Expressed: Physical Ability to Express Feelings: Able to express Ability to Express Needs: Able to express Ability to Express Thoughts: Able to express Ability to Understand Others: Understands Assistive Devices Assistive Devices: Wheelchair Respiratory Respiratory (WDL): Within Defined Limits Respiratory Pattern: (Regular) Respiratory Depth/Rhythm: Regular Respiratory Effort: Unlabored Respiratory Interventions Cardiac Cardiac (WDL): Within Defined Limits Cardiac Regularity: Regular Vascular/Neurovascular Peripheral Vascular Peripheral Vascular (WDL): Within Defined Limits Integumentary Integumentary (WDL): Exceptions to WDL Skin Condition: Dry Skin Temperature: Warm Ranjit Scale Sensory Perceptions: No impairment Moisture: Rarely moist Activity: Walks occasionally Mobility: Slightly limited Nutrition: Adequate Friction and Shear: No apparent problem Ranjit Scale Score: 20 Wound 08/26/24 Surgical Proximal;Right Pretibial (Active) Dressing Status Clean;Dry;Intact 09/13/24 0800 Site Assessment Intact 09/13/24 0800 Cristina-Wound Assessment Dry;Intact 09/13/24 0800 Number of days: 18 Wound 08/26/24 Surgical Sternum (Active) Dressing Status Clean;Dry;Intact 09/13/24 0800 Site Assessment Intact 09/13/24 0800 Cristina-Wound Assessment Dry;Intact 09/13/24 0800 Number of days: 18 Wound 08/26/24 Surgical Right Pretibial (Active) Dressing Status Clean;Dry;Intact 09/13/24 0800 Site Assessment Intact 09/13/24 0800 Cristina-Wound Assessment Dry;Intact 09/13/24 0800 Number of days: 18 Wound 08/26/24 Surgical Anterior;Proximal;Right Thigh (Active) Dressing Status Clean;Dry;Intact 09/13/24 0800 Site Assessment Intact 09/13/24 0800 Cristina-Wound Assessment Intact;Dry 09/13/24 0800 Number of days: 18 Wound Medial Abdomen (Active) Dressing Status Clean;Dry;Intact 09/13/24 0800 Site Assessment Intact 09/13/24 0800 Cristina-Wound Assessment Dry;Intact 09/13/24 0800 Number of days: Musculoskeletal Musculoskeletal Musculoskeletal (WDL): Within Defined Limits Upper Extremity (Shoulder, Elbow, Wrist, Hand): No impairment Lower Extremity (Hip, Knee, Ankle, Foot): No impairment Gastrointestinal Gastrointestinal Gastrointestinal (WDL): Within Defined Limits Abdomen Inspection: Soft Genitourinary Genitourinary (WDL): Within Defined Limits Urinary Incontinence: No Urine Color: Yellow/straw Urine Appearance: Clear Suprapubic Tenderness: No Genitourinary Symptoms: None Female Genitalia: Intact Toileting Program Urinary Toileting Program Being Used: None Bowel Toileting Program Being Used: No Provider Notification Daily Cares/Safety Precautions Carmelita Rojas Fall Risk Activity Highest Level of Mobility Performed (-HLM): Transferred to chair/commode Nutrition Hygiene Resident Preferences Activities of Daily Living Education Documentation No documentation found. Education Comments No comments found. [id number] 01:55:43 Nursing Note Nursing Daily Note Resident resting comfortably in bed. Had a shower and dressing changes done. Pain management effective with Tylenol. BS done with coverage with hs snack. Labs in am. Nursing Assessment Neurological Neurological Neuro (WDL) : Within Defined Limits Orientation Level: Oriented X4 Cognition: Coherent Speech: Clear Swallow: Able to swallow solids and liquids without difficulty [place] Coma Scale Best Eye Response: Spontaneous Best Verbal Response: Oriented Best Motor Response: Follows commands [place] Coma Scale Score: 15 HEENT Head, Ears, Eyes, Nose, and Throat (WDL): Within Defined Limits Psychosocial Patient Behaviors/Mood: (pleasant and co-operative) Did the resident's behaviors or moods prevent you from providing any necessary care?: Provided all necessary care Wandering - Presence and Frequency: Resident has NOT wandered Needs Expressed: Physical Assistive Devices Respiratory Respiratory (WDL): Within Defined Limits Respiratory Interventions Cardiac Cardiac (WDL): Within Defined Limits Vascular/Neurovascular Peripheral Vascular Peripheral Vascular (WDL): Within Defined Limits Integumentary Integumentary (WDL): Exceptions to WDL Skin Condition: Dry Skin Temperature: Warm Ranjit Scale Sensory Perceptions: No impairment Moisture: Rarely moist Activity: Walks occasionally Mobility: Slightly limited Nutrition: Adequate Friction and Shear: No apparent problem Ranjit Scale Score: 20 Wound 08/26/24 Surgical Proximal;Right Pretibial (Active) Dressing Status Clean;Dry;Intact 09/12/241999 Site Assessment Clean;Dry;Intact 09/12/241999 Cristina-Wound Assessment Clean;Dry;Intact 09/12/241999 Number of days: 18 Wound 08/26/24 Surgical Sternum (Active) Dressing Status Clean;Dry;Intact 09/12/241999 Site Assessment Clean;Dry;Intact 09/12/241999 Cristina-Wound Assessment Clean;Dry;Intact 09/12/241999 Number of days: 18 Wound 08/26/24 Surgical Right Pretibial (Active) Dressing Status Clean;Dry;Intact 09/12/241999 Site Assessment Clean;Dry;Intact 09/12/241999 Cristina-Wound Assessment Clean;Dry;Intact 09/12/241999 Number of days: 18 Wound 08/26/24 Surgical Anterior;Proximal;Right Thigh (Active) Dressing Status Clean;Dry;Intact 09/12/241999 Site Assessment Clean;Dry;Intact 09/12/241999 Cristina-Wound Assessment Clean;Dry;Intact 09/12/241999 Number of days: 18 Wound Medial Abdomen (Active) Dressing Status Clean;Dry;Intact 09/12/241999 Site Assessment Dry;Clean;Intact 09/12/241999 Cristina-Wound Assessment Clean;Dry;Intact 09/12/241999 Number of days: Musculoskeletal Musculoskeletal Musculoskeletal (WDL): Within Defined Limits Gastrointestinal Gastrointestinal Gastrointestinal (WDL): Within Defined Limits Genitourinary Genitourinary (WDL): Within Defined Limits Urinary Incontinence: No Toileting Program Urinary Toileting Program Being Used: None Bowel Toileting Program Being Used: No Provider Notification Daily Cares/Safety Precautions Carmelita Rojas Fall Risk Activity Nutrition Hygiene Resident Preferences Activities of Daily Living Education Documentation No documentation found. Education Comments No comments found. Armida Billings [facility] 18:04:20 Nursing Note Patient consented to Flu vaccine. Patient, son and spouse discussing pneumococcal vaccine at this time. Patient refused TB test because always positive. CXR per protocol ordered. Special Education Preschool Teacher went over sower schedule with patient. Safety noted at this time. Will continue to monitor. [facility] 16:17:19 Nursing Note 12 lead ECG ordered through [employer] # [id number]. [facility]25-[facility] 13:05:02 Nursing Note Nursing Daily Note Nursing Assessment Neurological Neurological Neuro (WDL) : Within Defined Limits Orientation Level: Oriented X4 Cognition: Coherent Speech: Clear Swallow: Able to swallow solids and liquids without difficulty Escobar Coma Scale Best Eye Response: Spontaneous Best Verbal Response: Oriented Best Motor Response: Follows commands [place] Coma Scale Score: 15 HEENT Head, Ears, Eyes, Nose, and Throat (WDL): Within Defined Limits Psychosocial Patient Behaviors/Mood: Other (Comment) Did the resident's behaviors or moods prevent you from providing any necessary care?: Provided all necessary care Wandering - Presence and Frequency: Resident has NOT wandered Needs Expressed: Physical Assistive Devices Respiratory Respiratory (WDL): Within Defined Limits Respiratory Interventions Cardiac Cardiac (WDL): Within Defined Limits Vascular/Neurovascular Peripheral Vascular Peripheral Vascular (WDL): Within Defined Limits Integumentary Integumentary (WDL): Within Defined Limits Ranjit Scale Sensory Perceptions: No impairment Moisture: Rarely moist Activity: Walks occasionally Mobility: Slightly limited Nutrition: Adequate Friction and Shear: No apparent problem Ranjit Scale Score: 20 Wound 08/26/24 Surgical Proximal;Right Pretibial (Active) Dressing Status Clean;Dry;Intact 09/12/24 08 Site Assessment Clean;Dry;Intact 09/12/24 08 Cristina-Wound Assessment Clean;Dry;Intact 09/12/24 08 Number of days: 17 Wound 08/26/24 Surgical Sternum (Active) Dressing Status Clean;Dry;Intact 09/12/24 08 Site Assessment Clean;Dry;Intact 09/12/24 08 Cristina-Wound Assessment Clean;Dry;Intact 09/12/24 0800 Number of days: 17 Wound 08/26/24 Surgical Right Pretibial (Active) Dressing Status Clean;Dry;Intact 09/12/24 0800 Site Assessment Clean;Dry;Intact 09/12/24 08 Cristina-Wound Assessment Clean;Dry;Intact 09/12/24 0800 Number of days: 17 Wound 08/26/24 Surgical Anterior;Proximal;Right Thigh (Active) Dressing Status Clean;Dry;Intact 09/12/24 0800 Site Assessment Clean;Dry;Intact 09/12/24 08 Cristina-Wound Assessment Clean;Dry;Intact 09/12/24 0800 Number of days: 17 Wound Medial Abdomen (Active) Dressing Status Clean;Dry;Intact 09/12/24 0800 Site Assessment Clean;Dry;Intact 09/12/24 0800 Cristina-Wound Assessment Clean;Dry;Intact 09/12/24 0800 Number of days: Musculoskeletal Musculoskeletal Musculoskeletal (WDL): Within Defined Limits Gastrointestinal Gastrointestinal Gastrointestinal (WDL): Within Defined Limits Genitourinary Genitourinary (WDL): Within Defined Limits Urinary Incontinence: No Toileting Program Urinary Toileting Program Being Used: None Bowel Toileting Program Being Used: No Provider Notification Daily Cares/Safety Precautions Carmelita Rojas Fall Risk Activity Highest Level of Mobility Performed (JH-HLM): Transferred to chair/commode Nutrition Hygiene Resident Preferences Activities of Daily Living Education Documentation No documentation found. Education Comments No comments found. Charo Noriega LVN [facility]2025-03-17 10:22:26 Nursing Note Therapist reported to blog writer patient complaining of chest pain, blog writer entered room noted patient sitting in recliner talking, no SOB noted at this time. Patient stated that she has been having a lot of gas, she stated that last night she had pain, but this is not the same. She stated that it feels like gas and usually she drinks hot water with lemon for gas. Noted vital signs B/P 120/62, P 72, R 18, SPO2 97% on RA. Patient noted in stable condition. Safety noted at this time. Will continue to monitor. [facility]2025-03-17 00:11:45 Nursing Note Nursing Daily Note Pt medicated for pain generalized with effectiveness, chest X-Ray results pending, and remains in stable condition. Nursing Assessment Neurological Neurological Neuro (WDL) : Within Defined Limits Orientation Level: Oriented X4 Cognition: Coherent Speech: Clear Swallow: Able to swallow solids and liquids without difficulty Escobar Coma Scale Best Eye Response: Spontaneous Best Verbal Response: Oriented Best Motor Response: Follows commands Escobar Coma Scale Score: 15 HEENT Head, Ears, Eyes, Nose, and Throat (WDL): Within Defined Limits Psychosocial Patient Behaviors/Mood: Other (Comment) (Cooperative) Did the resident's behaviors or moods prevent you from providing any necessary care?: Provided all necessary care Wandering - Presence and Frequency: Resident has NOT wandered Needs Expressed: Physical Assistive Devices Respiratory Respiratory (WDL): Within Defined Limits Respiratory Depth/Rhythm: Regular Respiratory Effort: Unlabored Respiratory Interventions Cardiac Cardiac (WDL): Within Defined Limits Vascular/Neurovascular Peripheral Vascular Peripheral Vascular (WDL): Within Defined Limits Integumentary Integumentary (WDL): Within Defined Limits Skin Condition: Dry Skin Temperature: Warm Skin Integrity: Other (Comment) (Pt has wound) Ranjit Scale Sensory Perceptions: No impairment Moisture: Rarely moist Activity: Walks occasionally Mobility: Slightly limited Nutrition: Adequate Friction and Shear: No apparent problem Ranjit Scale Score: 20 Wound 08/26/24 Surgical Proximal;Right Pretibial (Active) Dressing Status Clean;Dry;Intact 09/11/241999 Site Assessment Clean;Dry;Intact 09/11/241999 Cristina-Wound Assessment Clean;Dry;Intact 09/11/241999 Number of days: 17 Wound 08/26/24 Surgical Sternum (Active) Dressing Status Clean;Dry;Intact 09/11/241999 Site Assessment Dry;Clean;Intact 09/11/241999 Cristina-Wound Assessment Clean;Dry;Intact 09/11/241999 Number of days: 17 Wound 08/26/24 Surgical Right Pretibial (Active) Dressing Status Clean;Dry;Intact 09/11/241999 Site Assessment Clean;Dry;Intact 09/11/241999 Cristina-Wound Assessment Clean;Dry;Intact 09/11/241999 Number of days: 17 Wound 08/26/24 Surgical Anterior;Proximal;Right Thigh (Active) Dressing Status Clean;Dry;Intact 09/11/241999 Site Assessment Dry;Clean;Intact 09/11/241999 Cristina-Wound Assessment Clean;Dry;Intact 09/11/241999 Number of days: 17 Wound Medial Abdomen (Active) Dressing Status Clean;Dry;Intact 09/11/241999 Site Assessment Clean;Dry;Intact 09/11/241999 Cristina-Wound Assessment Clean;Dry;Intact 09/11/241999 Number of days: Musculoskeletal Musculoskeletal Musculoskeletal (WDL): Within Defined Limits Gastrointestinal Gastrointestinal Gastrointestinal (WDL): Within Defined Limits Bowel Sounds: All quadrants Genitourinary Genitourinary (WDL): Within Defined Limits Urinary Incontinence: No Toileting Program Urinary Toileting Program Being Used: None Bowel Toileting Program Being Used: No Provider Notification Daily Cares/Safety Precautions MaeJavier Fall Risk Activity Nutrition Hygiene Resident Preferences Activities of Daily Living Education Documentation No documentation found. Education Comments No comments found. Sharon Howell LVN [place] [id number] 16:20:47 Nursing Note Patient c/o SOB while talking. Vitals taken and recorded along with assessment: T 97.4; BP 144/76; HR 78; RR 20; O2 sats 99% on RA. Sat the patient upright in recliner with expressed relief in breathing. Informed the physician. Received a verbal order for, stat, one time dose of Furosemide. Order recorded and medication administered per order. Will continue to assess, monitor, update and provide care. [facility]2025-03-16 14:35:01 Nursing Note Nursing Daily Note A&O x4. V/S wnl and afebrile. Confirmed the dose of insulins with the physician before administering. Patient requested to go to the [facility]ao[facility] at [facility] every Thursday and Thursday. Physician informed. Resident physician authorized the patient to go to [facility] as long as accompanied by a staff member. No need for special out pass. Pain management in progress. No c/o SOB, GI/ distress or any discomfort. No voiced concerns; Sleeps on a recliner. Will continue to monitor, update and provide care. Visited by family. Nursing Assessment Neurological Neurological Neuro (WDL) : Within Defined Limits Orientation Level: Oriented X4 Cognition: Coherent Speech: Clear Swallow: Able to swallow solids and liquids without difficulty Escobar Coma Scale Best Eye Response: Spontaneous Best Verbal Response: Oriented Best Motor Response: Follows commands Escobar Coma Scale Score: 15 HEENT Head, Ears, Eyes, Nose, and Throat (WDL): Within Defined Limits Psychosocial Patient Behaviors/Mood: Other (Comment) (Pleasant & Cooperative) Did the resident's behaviors or moods prevent you from providing any necessary care?: Provided all necessary care Wandering - Presence and Frequency: Resident has NOT wandered Needs Expressed: Physical Assistive Devices Respiratory Respiratory (WDL): Within Defined Limits Respiratory Interventions Cardiac Cardiac (WDL): Exceptions to WDL (s/p CABG) Vascular/Neurovascular Peripheral Vascular Peripheral Vascular (WDL): Within Defined Limits Integumentary Integumentary (WDL): Exceptions to WDL (S/P CABG;Sx site to Mid-Sternum, upper abdomen, Rt inner thigh, Rt calf and Rt Groin) Skin Integrity: Other (Comment) (S/P CABG;Sx site to Mid-Sternum, upper abdomen, Rt inner thigh, Rt calf and Rt Groin) Ranjit Scale Sensory Perceptions: No impairment Moisture: Rarely moist Activity: Walks frequently Mobility: Slightly limited Nutrition: Adequate Friction and Shear: No apparent problem Ranjit Scale Score: 21 Wound 08/26/24 Surgical Proximal;Right Pretibial (Active) Dressing Status Clean;Dry;Intact 09/11/2400 Site Assessment Clean 09/11/24 0800 Cristina-Wound Assessment Clean 09/11/24 0800 Number of days: 16 Wound 08/26/24 Surgical Sternum (Active) Dressing Status Clean;Dry;Intact 09/11/24 0800 Site Assessment Clean 09/11/24 0800 Cristina-Wound Assessment Clean 09/11/24 0800 Number of days: 16 Wound 08/26/24 Surgical Right Pretibial (Active) Dressing Status Clean;Dry;Intact 09/11/24 0800 Site Assessment Clean 09/11/24 0800 Cristina-Wound Assessment Clean 09/11/24 0800 Number of days: 16 Wound 08/26/24 Surgical Anterior;Proximal;Right Thigh (Active) Dressing Status Clean;Dry;Intact 09/11/24 0800 Site Assessment Clean 09/11/24 0800 Cristina-Wound Assessment Clean 09/11/24 0800 Number of days: 16 Wound Medial Abdomen (Active) Dressing Status Clean;Dry;Intact 09/11/24 0800 Site Assessment Clean 09/11/24 0800 Cristina-Wound Assessment Clean 09/11/24 0800 Number of days: Musculoskeletal Musculoskeletal Musculoskeletal (WDL): Within Defined Limits Gastrointestinal Gastrointestinal Gastrointestinal (WDL): Within Defined Limits Last BM Date: 09/10/24 Genitourinary Genitourinary (WDL): Within Defined Limits Urinary Incontinence: No (Ambulatory to Bathroom) Genitourinary Symptoms: None Toileting Program Urinary Toileting Program Being Used: Other (Comment) (Ambulatory to Bathroom) Bowel Toileting Program Being Used: Yes (Ambulatory to Bathroom) Provider Notification Daily Cares/Safety Precautions Precautions: Sternal, Fall Carmelita Rojas Fall Risk Last Known Fall: No falls Mobility: Immobilized/requires assist of one person Mobility Interventions: Non-skid footwear, Call for assistance when needed, 1 person assistance Medications: Cardiovascular or central nervous system meds, Diuretics Medication Interventions: Answer call light promptly Mental Status/LOC/Awareness: Awake, alert, and oriented to date, place, and person Mental Status/LOC/Awareness Interventions: Instruct/reinforce with patient and family the use of call light for assistance Toileting Needs: No needs Toileting Needs Interventions: Answer call light promptly Volume/Electrolyte Status: No problems Communication/Sensory: No deficits Communication/Sensory Interventions: Confirm understanding by asking patients with hearing deficits repeat information back to you Behavior: Appropriate behavior Carmelita Rojas Fall Risk Total: 9 Carmelita Rojas Fall Risk: Low Risk Fall Risk Interventions Toilet Every 2 Hours-In Advance of Need: Yes Hourly Visual Checks: In chair Fall Armband On: No (Comment) (Not Applicable) Room Door Open: Yes Gait Belt Used For Transfers: Yes Alarm On: Other (Comment) (Not Applicable) Activity Highest Level of Mobility Performed (-HL): Walked 10 steps or more (i.e. walked to restroom) Nutrition Feeding: Independent after set-up Appetite: Good Percent Meals Eaten (%): 100 Fluid Restrictions: None Hygiene Incontinence Protective Devices: Changed Level of Assistance: Assistive person Bathing Schedule: Thursday, Thursday, Thursday Resident Preferences Entertainment Entertainment Activities: Watching TV/movies/sports Activities of Daily Living Bathing Did the resident bathe?: No - Activity did not occur Education Documentation No documentation found. Education Comments No comments found. Heri Tom RN [facility]2025-03-16 01:09:24 Nursing Note Nursing Daily Note Nursing Assessment Neurological Neurological Neuro (WDL) : Within Defined Limits Orientation Level: Oriented X4 Cognition: Coherent Speech: Clear Swallow: Able to swallow solids and liquids without difficulty Escobar Coma Scale Best Eye Response: Spontaneous Best Verbal Response: Oriented Best Motor Response: Follows commands Escobar Coma Scale Score: 15 HEENT Head, Ears, Eyes, Nose, and Throat (WDL): Within Defined Limits Psychosocial Patient Behaviors/Mood: Other (Comment) (Appropriate) Harmful Behavior: 1 Ability to Express Feelings: Able to express Ability to Express Needs: Able to express Ability to Express Thoughts: Able to express Ability to Understand Others: Understands Assistive Devices Respiratory Respiratory (WDL): Within Defined Limits Respiratory Depth/Rhythm: Regular Respiratory Interventions Cardiac Cardiac (WDL): Within Defined Limits Cardiac Regularity: Regular Vascular/Neurovascular Integumentary Integumentary (WDL): Exceptions to WDL Wound 08/26/24 Surgical Proximal;Right Pretibial (Active) Dressing Status Clean 09/10/241927 Site Assessment Clean;Dry 09/10/241927 Cristina-Wound Assessment Clean 09/10/241927 Number of days: 16 Wound 08/26/24 Surgical Sternum (Active) Dressing Status Clean 09/10/241928 Site Assessment Clean;Dry 09/10/241928 Cristina-Wound Assessment Clean 09/10/241928 Number of days: 16 Wound 08/26/24 Surgical Right Pretibial (Active) Dressing Status Clean 09/10/241927 Site Assessment Clean;Dry 09/10/241927 Cristina-Wound Assessment Clean 09/10/241927 Number of days: 16 Wound 08/26/24 Surgical Anterior;Proximal;Right Thigh (Active) Dressing Status Clean 09/10/241927 Site Assessment Clean;Herrera 09/10/241927 Cristina-Wound Assessment Clean 09/10/241927 Number of days: 16 Wound Medial Abdomen (Active) Dressing Status Clean;Dry 09/10/241928 Site Assessment Clean 09/10/241928 Cristina-Wound Assessment Clean 09/10/241928 Number of days: Musculoskeletal Gastrointestinal Gastrointestinal Gastrointestinal (WDL): Within Defined Limits Bowel Sounds: All quadrants Genitourinary Genitourinary (WDL): Within Defined Limits Provider Notification Daily Cares/Safety Precautions Carmelita Rojas Fall Risk Activity Nutrition Hygiene Resident Preferences Activities of Daily Living Education Documentation No documentation found. Education Comments No comments found. Dafne Martini RN [facility]2025-03-15 17:19:32 Nursing Note Resident stated that she could not sleep well at night; Sleeps in recliner stating that the bed is uncomfortable and that her back, shoulders and neck hurt when slept in bed last night. [id number] Nursing Note Nursing Daily Note A&O x4. V/S wnl and afebrile. Pain management in progress. Resident stated that she could not sleep well at night. Sleeps in recliner stating that the bed is uncomfortable and that her back, shoulders and neck hurt when slept in bed. No c/o SOB, GI/ distress or any discomfort. No voiced concerns. Will continue to monitor, update and provide care. Nursing Assessment Neurological Neurological Neuro (WDL) : Within Defined Limits Orientation Level: Oriented X4 Cognition: Coherent Speech: Clear Swallow: Able to swallow solids and liquids without difficulty Escobar Coma Scale Best Eye Response: Spontaneous Best Verbal Response: Oriented Best Motor Response: Follows commands [place] Coma Scale Score: 15 HEENT Head, Ears, Eyes, Nose, and Throat (WDL): Within Defined Limits R Eye: Other (Comment) L Eye: Other (Comment) Psychosocial Patient Behaviors/Mood: Other (Comment) (Pleasant & Cooperative) Did the resident's behaviors or moods prevent you from providing any necessary care?: Provided all necessary care Wandering - Presence and Frequency: Resident has NOT wandered Needs Expressed: Physical Assistive Devices Respiratory Respiratory (WDL): Within Defined Limits Respiratory Interventions Cardiac Cardiac (WDL): Exceptions to WDL (S/P CABG;Sx site to Mid-Sternum, upper abdomen, Rt inner thigh, Rt calf and Rt Groin) Vascular/Neurovascular Peripheral Vascular Peripheral Vascular (WDL): Within Defined Limits Integumentary Integumentary (WDL): Exceptions to WDL (S/P CABG;Sx site to Mid-Sternum, upper abdomen, Rt inner thigh, Rt calf and Rt Groin) Skin Integrity: Other (Comment) (S/P CABG;Sx site to Mid-Sternum, upper abdomen, Rt inner thigh, Rt calf and Rt Groin) Ranjit Scale Sensory Perceptions: No impairment Moisture: Rarely moist Activity: Walks frequently Mobility: Slightly limited Nutrition: Adequate Friction and Shear: No apparent problem Ranjit Scale Score: 21 Wound 08/26/24 Surgical Proximal;Right Pretibial (Active) Dressing Status Clean;Dry;Intact 09/10/24 0800 Site Assessment Clean 09/10/24 0800 Cristina-Wound Assessment Clean 09/10/24 0800 Number of days: 15 Wound 08/26/24 Surgical Sternum (Active) Dressing Status Clean;Dry;Intact 09/10/24 0800 Site Assessment Clean 09/10/24 0800 Cristina-Wound Assessment Clean 09/10/24 0800 Number of days: 15 Wound 08/26/24 Surgical Right Pretibial (Active) Dressing Status Clean;Dry;Intact 09/10/24 0800 Site Assessment Clean 09/10/24 0800 Cristina-Wound Assessment Clean 09/10/24 0800 Number of days: 15 Wound 08/26/24 Surgical Anterior;Proximal;Right Thigh (Active) Dressing Status Clean;Dry;Intact 09/10/24 0800 Site Assessment Clean 09/10/24 0800 Cristina-Wound Assessment Clean 09/10/24 0800 Number of days: 15 Wound Medial Abdomen (Active) Dressing Status Clean;Dry;Intact 09/10/24 0800 Site Assessment Clean 09/10/24 0800 Cristina-Wound Assessment Clean 09/10/24 0800 Number of days: Musculoskeletal Musculoskeletal Musculoskeletal (WDL): Within Defined Limits Upper Extremity (Shoulder, Elbow, Wrist, Hand): No impairment Lower Extremity (Hip, Knee, Ankle, Foot): No impairment Gastrointestinal Gastrointestinal Gastrointestinal (WDL): Within Defined Limits Genitourinary Genitourinary (WDL): Within Defined Limits Urinary Incontinence: No (Ambulatory to Bathroom; w/c) Genitourinary Symptoms: None Toileting Program Urinary Toileting Program Being Used: Other (Comment) (Ambulatory to Bathroom; w/c) Bowel Toileting Program Being Used: Yes (Ambulatory to Bathroom; w/c) Provider Notification Daily Cares/Safety Precautions Precautions: Sternal, Fall Carmelita Bob Fall Risk Last Known Fall: No falls Mobility: Immobilized/requires assist of one person Mobility Interventions: Non-skid footwear, Call for assistance when needed, 1 person assistance Medications: Cardiovascular or central nervous system meds, Diuretics Medication Interventions: Answer call light promptly Mental Status/LOC/Awareness: Awake, alert, and oriented to date, place, and person Mental Status/LOC/Awareness Interventions: Instruct/reinforce with patient and family the use of call light for assistance Toileting Needs: No needs Toileting Needs Interventions: Answer call light promptly Volume/Electrolyte Status: No problems Communication/Sensory: No deficits Communication/Sensory Interventions: Confirm understanding by asking patients with hearing deficits repeat information back to you Behavior: Appropriate behavior Carmelita Rojas Fall Risk Total: 9 Carmelita Rojas Fall Risk: Low Risk Fall Risk Interventions Toilet Every 2 Hours-In Advance of Need: Yes Hourly Visual Checks: In chair Fall Armband On: No (Comment) (Not Applicable) Room Door Open: Yes Gait Belt Used For Transfers: Yes Alarm On: Other (Comment) (Not Applicable) Activity Highest Level of Mobility Performed (-HLM): Walked 25 feet or more (i.e. walked outside of room) Nutrition Feeding: Independent after set-up Appetite: Good Fluid Restrictions: None Hygiene Incontinence Protective Devices: Changed Level of Assistance: Assistive person Bathing Schedule: Thursday, Thursday, Thursday Resident Preferences Entertainment Entertainment Activities: Watching TV/movies/sports Activities of Daily Living Bed Mobility Did the resident move in bed?: No - Activity did not occur (Patient sitting in chair and sleeps in recliner) Did the resident need help moving in bed?: Setup help only How much help did the resident need moving in bed?: Limited assistance Education Documentation No documentation found. Education Comments No comments found. [facility]38[facility]16 Nursing Note Nursing Daily Note Pt tolerated care provided and remains in stable condition. Nursing Assessment Neurological Neurological Neuro (WDL) : Within Defined Limits Orientation Level: Oriented X4 Cognition: Coherent Speech: Clear Swallow: Able to swallow solids and liquids without difficulty [place] Coma Scale Best Eye Response: Spontaneous Best Verbal Response: Oriented Best Motor Response: Follows commands Escobar Coma Scale Score: 15 HEENT Head, Ears, Eyes, Nose, and Throat (WDL): Within Defined Limits Psychosocial Patient Behaviors/Mood: Other (Comment) (Cooperative) Did the resident's behaviors or moods prevent you from providing any necessary care?: Provided all necessary care Wandering - Presence and Frequency: Resident has NOT wandered Needs Expressed: Physical Assistive Devices Respiratory Respiratory (WDL): Within Defined Limits Respiratory Depth/Rhythm: Regular Respiratory Effort: Unlabored Respiratory Interventions Cardiac Cardiac (WDL): Within Defined Limits Vascular/Neurovascular Peripheral Vascular Peripheral Vascular (WDL): Within Defined Limits Integumentary Integumentary (WDL): Within Defined Limits Skin Condition: Dry Skin Temperature: Warm Skin Integrity: Other (Comment) (Pt has wound) Ranjit Scale Sensory Perceptions: No impairment Moisture: Rarely moist Activity: Chairfast Mobility: Slightly limited Nutrition: Adequate Friction and Shear: Potential problem Ranjit Scale Score: 18 Wound 08/26/24 Surgical Proximal;Right Pretibial (Active) Dressing Status Clean;Dry;Intact 09/09/241999 Drainage Amount None 09/09/24 1519 Site Assessment Clean;Dry;Intact 09/09/241999 Cristina-Wound Assessment Clean;Dry;Intact 09/09/241999 Treatments Cleansed 09/09/24 1519 Dressing Other (Comment) (Apply dry dresg) 09/09/24 1519 Dressing Changed Changed 09/09/24 1519 Number of days: 15 Wound 08/26/24 Surgical Sternum (Active) Dressing Status Clean;Dry;Intact 09/09/241999 Drainage Amount None 09/09/24 1512 Site Assessment Clean;Dry;Intact 09/09/241999 Cristina-Wound Assessment Clean;Dry;Intact 09/09/241999 Treatments Other (Comment) 09/09/24 1512 Dressing Other (Comment) (Monitor sternum) 09/09/24 1512 Number of days: 15 Wound 08/26/24 Surgical Right Pretibial (Active) Dressing Status Clean;Dry;Intact 09/09/241999 Drainage Amount None 09/09/24 1520 Site Assessment Clean;Dry;Intact 09/09/241999 Cristina-Wound Assessment Clean;Dry;Intact 09/09/241999 Treatments Cleansed 09/09/24 1520 Dressing Other (Comment) (Apply dry dresg) 09/09/24 1520 Dressing Changed Changed 09/09/24 1520 Number of days: 15 Wound 08/26/24 Surgical Anterior;Proximal;Right Thigh (Active) Dressing Status Clean;Dry;Intact 09/09/241999 Drainage Amount Moderate 09/09/24 1517 Drainage Description Serosanguineous 09/09/24 1517 Site Assessment Dry;Clean;Intact 09/09/241999 Cristina-Wound Assessment Clean;Dry;Intact 09/09/241999 Treatments Cleansed 09/09/24 1517 Dressing Other (Comment) (Apply dry dresg) 09/09/24 1517 Dressing Changed Changed 09/09/24 1517 Number of days: 15 Wound Medial Abdomen (Active) Dressing Status Clean;Dry;Intact 09/09/241999 Drainage Amount Moderate 09/09/24 1516 Drainage Description Serosanguineous 09/09/24 1516 Site Assessment Dry;Clean;Intact 09/09/241999 Cristina-Wound Assessment Clean;Dry;Intact 09/09/241999 Treatments Cleansed;Other (Comment) (Apply ca-alg) 09/09/24 151 Dressing Other (Comment) (Apply Border dresg) 09/09/24 1516 Dressing Changed Changed 09/09/24 1516 Number of days: Musculoskeletal Musculoskeletal Musculoskeletal (WDL): Within Defined Limits Gastrointestinal Gastrointestinal Gastrointestinal (WDL): Within Defined Limits Bowel Incontinence: No Genitourinary Genitourinary (WDL): Within Defined Limits Urinary Incontinence: No Toileting Program Urinary Toileting Program Being Used: None Bowel Toileting Program Being Used: No Provider Notification Daily Cares/Safety Precautions Carmelita Rojas Fall Risk Activity Nutrition Hygiene Resident Preferences Activities of Daily Living Education Documentation No documentation found. Education Comments No comments found. Sharon Howell LVN [facility]2025-03-14 19:58:48 Nursing Note Nursing Daily Note A&O x4. V/S wnl and afebrile. Pain management in progress. CXR completed and reported to physician for Chest discomfort that was reported last night. No c/o SOB, GI/ distress or any discomfort. No voiced concerns. Will continue to monitor, update and provide care. Nursing Assessment Neurological Neurological Neuro (WDL) : Within Defined Limits Orientation Level: Oriented X4 Cognition: Coherent Speech: Clear Swallow: Able to swallow solids and liquids without difficulty Escobar Coma Scale Best Eye Response: Spontaneous Best Verbal Response: Oriented Best Motor Response: Follows commands Escobar Coma Scale Score: 15 HEENT Head, Ears, Eyes, Nose, and Throat (WDL): Within Defined Limits R Eye: Other (Comment) L Eye: Other (Comment) Psychosocial Patient Behaviors/Mood: Other (Comment) (Pleasant & Cooperative) Did the resident's behaviors or moods prevent you from providing any necessary care?: Provided all necessary care Wandering - Presence and Frequency: Resident has NOT wandered Needs Expressed: Physical Assistive Devices Respiratory Respiratory (WDL): Within Defined Limits Respiratory Interventions Cardiac Cardiac (WDL): Within Defined Limits Vascular/Neurovascular Peripheral Vascular Peripheral Vascular (WDL): Within Defined Limits Integumentary Integumentary (WDL): Exceptions to WDL (Sx incision to Mid-sternum, Rt Groin, Rt ineer Thigh and Rt Calf) Skin Integrity: Other (Comment) (Sx incision to Mid-sternum, Rt Groin, Rt ineer Thigh and Rt Calf) Ranjit Scale Sensory Perceptions: No impairment Moisture: Rarely moist Activity: Walks occasionally Mobility: Slightly limited Nutrition: Adequate Friction and Shear: No apparent problem Ranjit Scale Score: 20 Wound 08/26/24 Surgical Proximal;Right Pretibial (Active) Dressing Status Clean;Dry;Intact;Removed 09/09/24 1519 Drainage Amount None 09/09/24 1519 Site Assessment Other (Comment) (Proximal right Pretibial) 09/09/24 1519 Cristina-Wound Assessment Clean 09/09/24 0800 Treatments Cleansed 09/09/24 1519 Dressing Other (Comment) (Apply dry dresg) 09/09/24 151 Dressing Changed Changed 09/09/24 1519 Number of days: 14 Wound 08/26/24 Surgical Sternum (Active) Dressing Status Clean;Intact;Dry 09/09/24 1512 Drainage Amount None 09/09/24 1512 Site Assessment Other (Comment) (Sternum) 09/09/24 1512 Cristina-Wound Assessment Clean;Other (Comment) (Slight swelling around the first stitch; No redness, itching or pain. Will monitor.) 09/09/24 0800 Treatments Other (Comment) 09/09/24 1512 Dressing Other (Comment) (Monitor sternum) 09/09/24 1512 Number of days: 14 Wound 08/26/24 Surgical Right Pretibial (Active) Dressing Status Clean;Dry;Removed;Intact 09/09/24 1520 Drainage Amount None 09/09/24 1520 Site Assessment Other (Comment) (Right pretibial) 09/09/24 1520 Cristina-Wound Assessment Clean 09/09/24 0800 Treatments Cleansed 09/09/24 1520 Dressing Other (Comment) (Apply dry dresg) 09/09/24 1520 Dressing Changed Changed 09/09/24 1520 Number of days: 14 Wound 08/26/24 Surgical Anterior;Proximal;Right Thigh (Active) Dressing Status Clean;Dry;Removed;Intact 09/09/24 1517 Drainage Amount Moderate 09/09/24 1517 Drainage Description Serosanguineous 09/09/24 1517 Site Assessment Other (Comment) (Right thigh) 09/09/24 1517 Cristina-Wound Assessment Clean 09/09/24 0800 Treatments Cleansed 09/09/24 1517 Dressing Other (Comment) (Apply dry dresg) 09/09/24 1517 Dressing Changed Changed 09/09/24 1517 Number of days: 14 Wound Medial Abdomen (Active) Dressing Status Clean;Dry;Removed;Intact 09/09/24 1516 Drainage Amount Moderate 09/09/24 1516 Drainage Description Serosanguineous 09/09/24 1516 Site Assessment Other (Comment) (ABD) 09/09/24 1516 Cristina-Wound Assessment Clean 09/09/24 0800 Treatments Cleansed;Other (Comment) (Apply ca-alg) 09/09/24 151 Dressing Other (Comment) (Apply Border dresg) 09/09/24 1516 Dressing Changed Changed 09/09/24 1516 Number of days: Musculoskeletal Musculoskeletal Musculoskeletal (WDL): Within Defined Limits Upper Extremity (Shoulder, Elbow, Wrist, Hand): No impairment Lower Extremity (Hip, Knee, Ankle, Foot): No impairment Gastrointestinal Gastrointestinal Gastrointestinal (WDL): Within Defined Limits Genitourinary Genitourinary (WDL): Within Defined Limits Urinary Incontinence: No (BRP with Assist) Genitourinary Symptoms: None Toileting Program Urinary Toileting Program Being Used: Other (Comment) (BRP with Assist) Bowel Toileting Program Being Used: Yes (BRP with Assist) Provider Notification Daily Cares/Safety Precautions Precautions: Sternal, Fall Carmelita Rojas Fall Risk Last Known Fall: No falls Mobility: Immobilized/requires assist of one person Mobility Interventions: Non-skid footwear, Call for assistance when needed, 1 person assistance Medications: Cardiovascular or central nervous system meds, Diuretics Medication Interventions: Answer call light promptly Mental Status/LOC/Awareness: Awake, alert, and oriented to date, place, and person Mental Status/LOC/Awareness Interventions: Instruct/reinforce with patient and family the use of call light for assistance Toileting Needs: No needs Toileting Needs Interventions: Answer call light promptly Volume/Electrolyte Status: No problems Communication/Sensory: No deficits Communication/Sensory Interventions: Confirm understanding by asking patients with hearing deficits repeat information back to you Behavior: Appropriate behavior Carmelita Rojas Fall Risk Total: 9 MaeJavier Fall Risk: Low Risk Fall Risk Interventions Toilet Every 2 Hours-In Advance of Need: Yes Hourly Visual Checks: In chair Fall Armband On: No (Comment) (Not Applicable) Room Door Open: Yes Gait Belt Used For Transfers: Yes Alarm On: Other (Comment) (Not Applicable) Activity Highest Level of Mobility Performed (-[facility]): Transferred to chair/commode Nutrition Feeding: Independent Appetite: Good Fluid Restrictions: None Hygiene Incontinence Protective Devices: Changed Level of Assistance: Assistive person Bathing Schedule: Thursday, Thursday, Thursday Resident Preferences Entertainment Entertainment Activities: Watching TV/movies/sports Activities of Daily Living Education Documentation No documentation found. Education Comments No comments found. Heri Tom RN [facility]2025-03-14 15:41:25 Nursing Note Physician reviewed the CMP, Bilirubin direct add-on and CBC with diff and Platelets lab results. Also informed of the CXR report. No new orders at this moment. Will continue to monitor, update and provide care. [facility]2025-03-14 10:09:06 Drug Regimen Review Name: Deepthi Moore : 1955 Age: 68 y.o. 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 (CMS/HCC) (HCC) Diabetic macular edema (HCC) History of vitrectomy Primary open angle glaucoma of both eyes Proliferative diabetic retinopathy (HCC) Allergies: Allergies Allergen Reactions Penicillins Other Upset stomach Other reaction(s): Other (See Comments) Upset stomach Diet: Adult Diet Carbohydrate Controlled; Carb choice 1800 robert Orderered Tube Feeds and Supplements Medication Dose Route Frequency Provider Last Rate Last Admin None Tube Feeding Access: Crush Meds: No Vaccine History: Immunization History Administered Date(s) Administered Moderna SARS-CoV-2 08/31/2020 Pfizer Herrera Cap SARS-CoV-2 09/25/2021 Pfizer Purple Cap SARS-CoV-2 04/29/2021 [facility] SARS-CoV-2 Bivalent 30 mcg/0.3 mL 03/25/2022, 10/15/2022 SARS-COV-2 (COVID-19) vaccine, mRNA, spike protein, LNP, preservative free, 50 mcg/0.5 mL dose 03/21/2023, 02/28/2024 Medications Current Medications Medication Indication(s) Dose Route Frequency Last Admin acetaminophen (Tylenol 8 Hour) ER tablet 650 mg Pain 650 mg Oral q8h DANTE 650 mg at 09/09/24 0100 aspirin EC EC tablet 81 mg Pain 81 mg Oral Daily 81 mg at 09/08/24 0900 brimonidine (AlphaGAN) 0.2 % ophthalmic solution 1 drop Ocular Hypertension 1 drop Right Eye BID 1 drop at 09/08/24 2100 carvedilol (Coreg) tablet 3.125 mg Heart Failure 3.125 mg Oral BID with meals 3.125 mg at 09/09/24 0800 clopidogrel (Plavix) tablet 75 mg 75 mg Oral Daily 75 mg at 09/08/24 0900 dextrose 50 % solution 12.5 g Hypoglycemia 12.5 g Intravenous PRN furosemide (Lasix) tablet 40 mg Edema 40 mg Oral Daily 40 mg at 09/08/24 0900 insulin glargine (Lantus) pen 40 Units Hyperglycemia 40 Units Subcutaneous q AM 40 Units at 09/09/24 0700 insulin lispro (Humalog, Admelog) injection 10 Units Hyperglycemia 10 Units Subcutaneous TID AC 10 Units at 09/09/24 0730 latanoprost (Xalatan) 0.005 % ophthalmic solution 1 drop Glaucoma 1 drop Both Eyes Nightly 1 drop at 09/08/24 2100 melatonin tablet 5 mg Insomnia 5 mg Oral Nightly PRN methocarbamol (Robaxin) tablet 750 mg Postoperative Pain 750 mg Oral TID 750 mg at 09/08/24 2100 polyethylene glycol (PEG) 3350 (Miralax) packet 17 g Constipation 17 g Oral Daily PRN potassium chloride CR (Klor-Con M20) ER tablet 20 mEq Hypokalemia 20 mEq Oral Daily 20 mEq at 09/08/24 0900 rosuvastatin (Crestor) tablet 20 mg Hyperlipidemia 20 mg Oral Nightly 20 mg at 09/08/24 2100 sennosides (Senokot) tablet 17.2 mg Constipation 2 tablet Oral BID PRN timolol (Timoptic) 0.5 % ophthalmic solution 1 drop Open-Angle Glaucoma 1 drop Both Eyes BID 1 drop at 09/08/24 2100 Antibiotic Usage: None Psychotropic Usage: In use Name: Melatonin 5mg 1 po at bedtime prn Consent: No Indication: Insomnia Gradual Dose Reduction Attempt: Nurse Behavior Monitoring Assessment: Anticoagulant Usage: In use Name: Plavix 75mg 1 po every day Aspirin EC 81mg 1 po every day Indication: Blood clot (Plavix), Aspirin(Incorrect indication listed will follow up with prescriber) Duration: TBT(Plavix), Aspirin (Indefinite) Diuretics Usage: In use Name: Lasix 40mg 1 po every day Indication: Edema Insulin Usage: In use Name: Lantus 40 units subcutaneous qam , Lispro 10 units subcutaneous tid before meals Indication: Type 11 diabetes Opioids Usage: None PPI: None Renal Disease: No Liver Disease: No Last 4 Vitals 09/08/24 1800 09/09/24 0403 09/09/24 0706 09/09/24 0800 BP: 129/70 145/70 155/68 154/68 Pulse: 86 80 82 82 Resp: 18 18 18 Temp: 36.3 ?C (97.3 ?F) 36.3 ?C (97.4 ?F) 36.6 ?C (97.8 ?F) SpO2: 99% 96% 97% Oxygen Therapy: None (Room air) Pain Rating Scale (DVPRS): Lab Review (Significant Abnormals): Admission on 09/07/2024 Component Date Value External POC Glucose 09/08/2024 193 External POC Glucose 09/08/2024 222 External POC Glucose 09/08/2024 228 POC Glucose 09/08/2024 276 (A) Sodium Lvl 09/09/2024 136 Potassium Lvl 09/09/2024 3.7 Chloride Lvl 09/09/2024 97 (L) CO2 Lvl 09/09/2024 30.5 Anion Gap 09/09/2024 12.2 Glucose Lvl 09/09/2024 240 (H) Creatinine Lvl 09/09/2024 0.86 BUN 09/09/2024 13 B/C Ratio 09/09/2024 15 Protein 09/09/2024 7.9 Albumin Lvl 09/09/2024 3.9 Globulin, Calc 09/09/2024 4.0 Albumin/Globulin Ratio 09/09/2024 0.98 Calcium Lvl 09/09/2024 9.3 ALT 09/09/2024 10 AST 09/09/2024 32 Alkaline Phosphatase 09/09/2024 132 (H) Bilirubin Total 09/09/2024 1.24 (H) eGFR 09/09/2024 74 WBC 09/09/2024 12.19 (H) RBC 09/09/2024 4.16 NRBC % 09/09/2024 0.0 Hgb 09/09/2024 11.0 Hct 09/09/2024 34.3 MCV 09/09/2024 82.5 MCH 09/09/2024 26.4 MCHC 09/09/2024 32.1 RDW - SD 09/09/2024 71.0 (H) Plt Count 09/09/2024 243 MPV 09/09/2024 9.3 Segs % 09/09/2024 68.3 Lymphs % 09/09/2024 19.2 Monos % 09/09/2024 9.1 Eos % 09/09/2024 2.7 Basos % 09/09/2024 0.5 Immature Grans % 09/09/2024 0.2 Segs # 09/09/2024 8.32 (H) Lymphs # 09/09/2024 2.34 Monos # 09/09/2024 1.11 (H) Eos # 09/09/2024 0.33 Basos # 09/09/2024 0.06 Imm Grans # 09/09/2024 0.03 POC Glucose 09/09/2024 243 (A) External POC Glucose 09/09/2024 243 No results displayed because visit has over 200 results. Pre-Admission Testing on 08/25/2024 Component Date Value Prothrombin Time (PT) 08/25/2024 16.0 (H) INR 08/25/2024 1.26 (H) PTT 08/25/2024 30.4 Plavix Effect Plt 08/25/2024 243 Glucose Lvl 08/25/2024 179 (H) BUN 08/25/2024 10 Creatinine Lvl 08/25/2024 0.90 Sodium Lvl 08/25/2024 141 Potassium Lvl 08/25/2024 4.2 Chloride Lvl 08/25/2024 107 CO2 Lvl 08/25/2024 30.4 Anion Gap 08/25/2024 7.8 (L) Calcium Lvl 08/25/2024 8.8 eGFR 08/25/2024 70 Hgb A1C 08/25/2024 8.32 (H) MRSA by PCR 08/25/2024 Negative UA Color 08/25/2024 Light Yellow UA Turbidity 08/25/2024 Clear UA Spec Grav 08/25/2024 1.003 UA pH 08/25/2024 8.0 UA Protein 08/25/2024 Negative UA Glucose 08/25/2024 Negative UA Ketones 08/25/2024 Negative UA Bilirubin 08/25/2024 Negative UA Blood 08/25/2024 Negative UA Urobilinogen 08/25/2024 <=1.0 UA Nitrite 08/25/2024 Negative UA Leuk Esterase 08/25/2024 Negative UA Ascorbic Acid 08/25/2024 Negative UA Sq Epi 08/25/2024 None Seen UA WBC 08/25/2024 0 UA RBC (Num) 08/25/2024 0 UA Bacteria 08/25/2024 Occasional UA Hyaline Casts 08/25/2024 1 Ventricular Rate 08/25/2024 62 Atrial Rate 08/25/2024 62 AR Interval 08/25/2024 158 QRS Duration 08/25/2024 110 QT/QTc 08/25/2024 466 QTc Calculation 08/25/2024 472 P-Speedwell 08/25/2024 72 R-Speedwell 08/25/2024 70 T-Speedwell 08/25/2024 147 ABO Grouping 08/25/2024 O Rh Type 08/25/2024 Positive Antibody Screen 08/25/2024 Negative pH Art 08/25/2024 7.41 PCO2 Art 08/25/2024 39 PO2 Art 08/25/2024 99 HCO3 Art 08/25/2024 24.7 BE Art 08/25/2024 0 O2 Sat Art 08/25/2024 97.7 Triglycerides 08/25/2024 84 Cholesterol 08/25/2024 82 LDL (Calculated) 08/25/2024 32 HDL Cholesterol 08/25/2024 33.5 VLDL 08/25/2024 17 CHD Risk 08/25/2024 2.45 (L) WBC 08/25/2024 8.58 RBC 08/25/2024 4.00 NRBC % 08/25/2024 0.0 Hgb 08/25/2024 11.9 Hct 08/25/2024 37.8 MCV 08/25/2024 94.5 MCH 08/25/2024 29.8 MCHC 08/25/2024 31.5 RDW - SD 08/25/2024 46.6 Plt Count 08/25/2024 168 (L) MPV 08/25/2024 10.9 Segs % 08/25/2024 46.2 Lymphs % 08/25/2024 41.0 Monos % 08/25/2024 9.3 Eos % 08/25/2024 2.8 Basos % 08/25/2024 0.6 Immature Grans % 08/25/2024 0.1 Segs # 08/25/2024 3.96 Lymphs # 08/25/2024 3.52 Monos # 08/25/2024 0.80 (H) Eos # 08/25/2024 0.24 Basos # 08/25/2024 0.05 Imm Grans # 08/25/2024 0.01 Estimated Creatinine Clearance: 66.9 mL/min (by C-G formula based on SCr of 0.86 mg/dL). Medication Review Analysis: A drug regimen review has been completed . Medication reconciliation completed . Pt currently taking Lantus insulin in place of Basagalar in addition to lispro for control of there diabetes. Pt has been taking this formulation inpatient in the acute setting. Pt Lantus dose increased on admission to 35 units daily and then increased again 40 units every morning. Last two POC glucose readings were 276 yesterday and 243 today . Physician notes indicate that sliding scale may need to be considered . Will continue to monitor pt daily. Please see below for recommendations. Recommendations: Nursing: PMH of rapid drops in blood pressure and lightheadedness " Fall Risk". Please assist pt with all activities of daily living. Please update pt's chart with informed consent form for melatonin. Reminder max of 3000mg/day of Tylenol from all sources. Please monitor pt for signs of bleeding, current order's for Plavix and aspirin. Reminder, please check pt's blood sugar before administering orders for insulin. Providers: A drug regimen review has been completed . Recommend pt assessment and update to active diagnosis for insomnia , current active order for melatonin. Recommend hold parameters on orders for coreg "Hold for BP <110/50 or HR < 60 If held x 3 doses , notify MD or STRAIGHT RULING MACHINE OPERATOR. Also recommend hold parameters on lasix " Hold for BP < 110/50". Recommend hold parameters on Plavix and aspirin " 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" . Recommend parameters on Lantus and lispro insulin " Hold if pt is not eating or blood sugar less than 110. If held x3 doses , please notify MD. Clarification on current indication of aspirin listed " for pain " . I have reviewed, and made suggestions as appropriate, to the resident's medications. There were clinically significant medication issues were identified. Hammad Carranza PharmD [facility]2025-03-14 05:35:15 Nursing Note Resident called around 3:55, stated she was moaning in her sleep aloud on and off and now feels chest uneasiness when laying flat in bed with hob up. While sitting on the chair she does not have this feeling. V/s wnl's. Notified resident MD options trader, Dr Anderson who spoke to resident herself on the phone. New orders noted and carried out. No noted distress. [facility]2025-03-14 04:54:19 Received call at approximately 4 AM on 09-09 from nurse Huffman at [place] regarding patient Deepthi in room 724. At that time, nurse stated that patient was having a 'chest uneasiness' whenever laying flat. Once sitting up, she would feel better. Blood pressure 145/70, pulse 80, SpO2 96%. After talking with the patient, patient stated that she had did not have any chest pain. She felt as if " something was going to happen and she would feel short of breath" whenever she was laying flat. After sitting up, she felt much better. Denies any palpitations, nausea, vomiting, headache. Upon further chart review, patient has heart failure, with EF of 40 to 45%, and received total of 60 mg of Lasix yesterday. From patient's story, it seems as if maybe patient is developing some fluid in her lungs, will administer a one-time dose of p.o. Lasix 40 mg and will also order a chest x-ray to be done in the morning. Vitals overall are stable and patient is not hypoxic, which is reassuring and believe does not warrant emergency evaluation. Patient is also not having chest pain which would warrant further evaluation given her recent history of CABG. Patient also requesting medication to help with sleep for 09/09 PM. Will forward this note to day team, Dr. Vaughan and attending physician Dr. Jackson. Irene Anderson DO [facility] [place] [facility], PGY-3 [id number] Cosigned by Brittani Del Rio DO at 09/09/2024 12:23 PM CDT [facility]29[facility]02 Nursing Note Nursing Daily Note Resident resting comfortably in bed. Sternum precautions encouraged. S/P CABG, sternal wound with surgical glue and rt lower leg surgical wound with dressing intact. Pain management with scheduled tylenol effective. Nursing Assessment Neurological Neurological Neuro (WDL) : Within Defined Limits Orientation Level: Oriented X4 Cognition: Coherent Speech: Clear Swallow: Able to swallow solids and liquids without difficulty [place] Coma Scale Best Eye Response: Spontaneous Best Verbal Response: Oriented Best Motor Response: Follows commands [place] Coma Scale Score: 15 HEENT Head, Ears, Eyes, Nose, and Throat (WDL): Within Defined Limits Psychosocial Patient Behaviors/Mood: (pleasant and co-operative) Did the resident's behaviors or moods prevent you from providing any necessary care?: Provided all necessary care Wandering - Presence and Frequency: Resident has NOT wandered Needs Expressed: Physical Assistive Devices Respiratory Respiratory (WDL): Within Defined Limits Respiratory Interventions Cardiac Cardiac (WDL): Exceptions to WDL Cardiac Regularity: Regular Vascular/Neurovascular Peripheral Vascular Peripheral Vascular (WDL): Within Defined Limits Integumentary Integumentary (WDL): Exceptions to WDL Skin Condition: Dry Skin Temperature: Warm Ranjit Scale Sensory Perceptions: No impairment Moisture: Rarely moist Activity: Walks occasionally Mobility: Slightly limited Nutrition: Adequate Friction and Shear: No apparent problem Ranjit Scale Score: 20 Wound 08/26/24 Surgical Proximal;Right Pretibial (Active) Dressing Status Clean;Dry;Intact 09/08/241999 Site Assessment Other (Comment) (rt Pretibial) 09/08/241999 Cristina-Wound Assessment Clean;Dry 09/08/241999 Number of days: 14 Wound 08/26/24 Surgical Sternum (Active) Dressing Status Clean;Dry;Intact 09/08/241999 Site Assessment Other (Comment) (sternum) 09/08/241999 Cristina-Wound Assessment Clean;Dry;Intact 09/08/241999 Number of days: 14 Wound 08/26/24 Surgical Right Pretibial (Active) Dressing Status Clean;Dry;Intact 09/08/241999 Site Assessment Clean;Dry 09/08/241999 Cristina-Wound Assessment Clean;Dry 09/08/241999 Number of days: 14 Wound 08/26/24 Surgical Anterior;Proximal;Right Thigh (Active) Dressing Status Clean;Dry;Intact 09/08/241999 Site Assessment Other (Comment) (rt thigh) 09/08/241999 Cristina-Wound Assessment Dry;Clean;Intact 09/08/241999 Number of days: 14 Wound Medial Abdomen (Active) Dressing Status Clean;Dry;Intact 09/08/241999 Site Assessment Other (Comment) (abd) 09/08/241999 Cristina-Wound Assessment Intact 09/08/241999 Number of days: Musculoskeletal Musculoskeletal Musculoskeletal (WDL): Within Defined Limits Gastrointestinal Gastrointestinal Gastrointestinal (WDL): Within Defined Limits Genitourinary Genitourinary (WDL): Within Defined Limits Urinary Incontinence: No Toileting Program Urinary Toileting Program Being Used: None Bowel Toileting Program Being Used: No Provider Notification Daily Cares/Safety Precautions Carmelita Rojas Fall Risk Activity Nutrition Hygiene Resident Preferences Activities of Daily Living Education Documentation No documentation found. Education Comments No comments found. Armida Billings LVN [facility]2025-03-13 17:06:20 Nursing Note Nursing Daily Note Patient was seen by MD today, adjustment was done to patient insulin dosage. Blood capillary monitor done and insulin administered as ordered. Will continue care as planned. Nursing Assessment Neurological Neurological Neuro (WDL) : Within Defined Limits Orientation Level: Oriented X4 Cognition: Coherent Speech: Clear Swallow: Able to swallow solids and liquids without difficulty [place] Coma Scale Best Eye Response: Spontaneous Best Verbal Response: Oriented Best Motor Response: Follows commands [place] Coma Scale Score: 15 HEENT Head, Ears, Eyes, Nose, and Throat (WDL): Within Defined Limits Psychosocial Patient Behaviors/Mood: (Pleasant and cooperative) Did the resident's behaviors or moods prevent you from providing any necessary care?: Provided all necessary care Wandering - Presence and Frequency: Resident has NOT wandered Needs Expressed: Physical Ability to Express Feelings: Able to express Ability to Express Needs: Able to express Ability to Express Thoughts: Able to express Ability to Understand Others: Understands Assistive Devices Assistive Devices: Wheelchair Respiratory Respiratory (WDL): Within Defined Limits Respiratory Pattern: (Normal) Respiratory Depth/Rhythm: Regular Respiratory Effort: Unlabored Dyspnea Occurrence: Other (Comment) (None) Respiratory Interventions Cardiac Cardiac (WDL): Within Defined Limits Cardiac Regularity: Regular Vascular/Neurovascular Peripheral Vascular Peripheral Vascular (WDL): Within Defined Limits Integumentary Integumentary (WDL): Within Defined Limits Skin Condition: Dry Skin Temperature: Warm Ranjit Scale Sensory Perceptions: No impairment Moisture: Rarely moist Activity: Chairfast Mobility: Slightly limited Nutrition: Adequate Friction and Shear: No apparent problem Ranjit Scale Score: 19 Wound 08/26/24 Surgical Proximal;Right Pretibial (Active) Dressing Status Clean;Dry;Intact;Removed 09/08/24 1225 Drainage Amount Moderate 09/08/24 1225 Drainage Description Serosanguineous 09/08/24 1225 Site Assessment Other (Comment) (Right Pretibial) 09/08/24 1225 Wound Length (cm) 14 cm 09/08/24 1225 Wound Width (cm) 0 cm 09/08/24 1225 Wound Surface Area (cm2) 0 cm209/08/24 1225 Wound Depth (cm) 0 cm 09/08/24 1225 Wound Volume (cm3) 0 cm309/08/24 1225 Treatments Cleansed 09/08/24 1225 Dressing Other (Comment) (Apply Border dresg) 09/08/24 1225 Dressing Changed Changed 09/08/24 1225 Number of days: 13 Wound 08/26/24 Surgical Sternum (Active) Dressing Status Clean;Dry;Intact 09/08/24 1218 Drainage Amount None 09/08/24 1218 Site Assessment Other (Comment) (Sternum) 09/08/24 1218 Treatments Other (Comment) (monitor) 09/08/24 1218 Dressing Other (Comment) (No dressing monitor) 09/08/248 Number of days: 13 Wound 08/26/24 Surgical Anterior;Proximal;Right Thigh (Active) Dressing Status Clean;Dry;Intact;Removed 09/08/243 Drainage Amount None 09/08/243 Site Assessment Other (Comment) (Right thigh) 09/08/24 1223 Wound Length (cm) 3 cm 09/08/241222 Wound Width (cm) 0 cm 09/08/241222 Wound Surface Area (cm2) 0 cm209/08/241222 Wound Depth (cm) 0 cm 09/08/241222 Wound Volume (cm3) 0 cm309/08/241222 Treatments Cleansed 09/08/241222 Dressing Other (Comment) (Apply Border dresg) 09/08/241222 Dressing Changed Changed 09/08/241222 Number of days: 13 Wound Medial Abdomen (Active) Dressing Status Clean;Dry;Intact;Removed 09/08/24 1219 Drainage Amount Moderate 09/08/241218 Drainage Description Serosanguineous 09/08/241218 Site Assessment Other (Comment) (ABD) 09/08/241218 Cristina-Wound Assessment Intact 09/08/241218 Wound Length (cm) 4 cm 09/08/241218 Wound Width (cm) 0.2 cm 09/08/241218 Wound Surface Area (cm2) 0.63 cm209/08/241218 Wound Depth (cm) 0.1 cm 09/08/241218 Wound Volume (cm3) 0.042 cm309/08/241218 Treatments Cleansed;Other (Comment) (Apply Adaptic or Oil Emulsion non adherente strip) 09/08/241218 Dressing Other (Comment) (Boarder Gauze) 09/08/241218 Dressing Changed Changed 09/08/241218 Number of days: Musculoskeletal Musculoskeletal Musculoskeletal (WDL): Within Defined Limits Upper Extremity (Shoulder, Elbow, Wrist, Hand): No impairment Lower Extremity (Hip, Knee, Ankle, Foot): No impairment Gastrointestinal Gastrointestinal Gastrointestinal (WDL): Within Defined Limits Abdomen Inspection: Soft Last BM Date: 09/07/24 Bowel Incontinence: No Genitourinary Genitourinary (WDL): Within Defined Limits Urinary Incontinence: No Urine Color: Yellow/straw Urine Appearance: Clear Suprapubic Tenderness: No Genitourinary Symptoms: None Female Genitalia: Intact Toileting Program Urinary Toileting Program Being Used: None Bowel Toileting Program Being Used: No Provider Notification Daily Cares/Safety Precautions Carmelita Rojas Fall Risk Activity Highest Level of Mobility Performed (-HLM): Transferred to chair/commode Nutrition Hygiene Resident Preferences Activities of Daily Living Personal Hygiene Did the resident do personal hygiene activities?: Yes Education Documentation No documentation found. Education Comments No comments found. [facility]41 Nursing Note Nursing Daily Note Pt adjusting to facility and remains in stable condition. Nursing Assessment Neurological Neurological Neuro (WDL) : Within Defined Limits Orientation Level: Oriented X4 Cognition: Coherent Speech: Clear Swallow: Able to swallow solids and liquids without difficulty R Pupil Size (mm): 3 mm R Pupil Shape: Round R Pupil Reaction: Brisk L Pupil Size (mm): 3 mm L Pupil Shape: Round L Pupil Reaction: Brisk Reflexes Gag Reflex: Present [place] Coma Scale Best Eye Response: Spontaneous Best Verbal Response: Oriented Best Motor Response: Follows commands [place] Coma Scale Score: 15 HEENT Head, Ears, Eyes, Nose, and Throat (WDL): Within Defined Limits Tongue: [place], Moist Mucous Membrane(s): Moist, [place] Teeth: Other (Comment) (Intact) Psychosocial Patient Behaviors/Mood: Other (Comment) (Cooperative) Did the resident's behaviors or moods prevent you from providing any necessary care?: Provided all necessary care Wandering - Presence and Frequency: Resident has NOT wandered Needs Expressed: Physical Ability to Express Feelings: Able to express Ability to Express Needs: Able to express Ability to Express Thoughts: Able to express Ability to Understand Others: Understands Assistive Devices Assistive Devices: Wheelchair Respiratory Respiratory (WDL): Within Defined Limits Respiratory Depth/Rhythm: Regular Respiratory Effort: Unlabored Respiratory Interventions Cardiac Cardiac (WDL): Within Defined Limits Vascular/Neurovascular Peripheral Vascular Peripheral Vascular (WDL): Within Defined Limits Integumentary Integumentary (WDL): Within Defined Limits Skin Condition: Dry Skin Temperature: Warm Skin Integrity: Other (Comment) (Pt has surgical wound) Ranjit Scale Sensory Perceptions: No impairment Moisture: Rarely moist Activity: Chairfast Mobility: Slightly limited Nutrition: Adequate Friction and Shear: No apparent problem Ranjit Scale Score: 19 Wound 08/26/24 Surgical Proximal;Right Pretibial (Active) Dressing Status Clean;Dry;Intact 09/07/242041 Drainage Amount None 09/07/242041 Site Assessment Clean;Dry 09/07/242041 Cristina-Wound Assessment Clean;Dry 09/07/242041 Treatments Cleansed 09/07/242041 Dressing Dry dressing 09/07/242041 Dressing Changed Changed 09/07/242041 Number of days: 13 Wound 08/26/24 Surgical Sternum (Active) Dressing Status Clean;Dry;Intact 09/07/242042 Drainage Amount None 09/07/242042 Site Assessment Dry;Clean 09/07/242042 Cristina-Wound Assessment Dry;Clean 09/07/242042 Number of days: 13 Wound 08/26/24 Surgical Right Pretibial (Active) Dressing Status Clean;Dry;Intact 09/07/242043 Drainage Amount None 09/07/242043 Site Assessment Clean;Dry 09/07/242043 Cristina-Wound Assessment Clean;Dry 09/07/242043 Dressing Dry dressing 09/07/242043 Dressing Changed Changed 09/07/242043 Number of days: 13 Wound 08/26/24 Surgical Anterior;Proximal;Right Thigh (Active) Dressing Status Clean;Dry;Intact 09/07/242043 Drainage Amount None 09/07/242043 Site Assessment Dry;Clean 09/07/242043 Cristina-Wound Assessment Dry;Clean 09/07/242043 Dressing Dry dressing 09/07/242043 Dressing Changed Changed 09/07/242043 Number of days: 13 Musculoskeletal Musculoskeletal Musculoskeletal (WDL): Within Defined Limits Gastrointestinal Gastrointestinal Gastrointestinal (WDL): Within Defined Limits Abdomen Inspection: Soft Bowel Sounds: All quadrants Bowel Incontinence: No Genitourinary Genitourinary (WDL): Within Defined Limits Urinary Incontinence: No Toileting Program Urinary Toileting Program Being Used: None Bowel Toileting Program Being Used: No Provider Notification Daily Cares/Safety Precautions Carmelita Bob Fall Risk Last Known Fall: No falls Mobility: Immobilized/requires assist of one person Mobility Interventions: Call for assistance when needed, Non-skid footwear Medications: Cardiovascular or central nervous system meds Medication Interventions: Answer call light promptly, Review medications daily with patient and family and educate on side effects. Mental Status/LOC/Awareness: Awake, alert, and oriented to date, place, and person Mental Status/LOC/Awareness Interventions: Do not leave patient unattended while toileting or bathing Toileting Needs: No needs Volume/Electrolyte Status: No problems Communication/Sensory: No deficits Behavior: Appropriate behavior MaeJavier Fall Risk Total: 6 Carmelita Rojas Fall Risk: [place] Activity Nutrition Hygiene Resident Preferences Activities of Daily Living Bed Mobility Did the resident move in bed?: Yes Did the resident need help moving in bed?: One person physical assist Did you supervise the resident moving in bed or were they independent?: I supervised the activity How much help did the resident need moving in bed?: Limited assistance Transfer Did the resident transfer?: Yes Did the resident need help to transfer?: One person physical assist Did you supervise the resident transferring or were they independent?: I supervised the activity How much help did the resident need to transfer?: Limited assistance Walk in Room Did the resident walk in the room?: No - Activity did not occur Did the resident need help walking in the room?: Two+ person physical assist Did you supervise the resident walking in the room or were they independent?: I supervised the activity How much help did the resident need walking in the room?: Extensive assistance Walk in Corridor Did the resident walk in the corridor?: No - Activity did not occur How much help did the resident need walking in the corridor?: Total dependence Locomotion on Unit Did the resident locomote on unit?: No - Activity did not occur Did the resident need help locomoting on unit?: Two+ person physical assist How much help did the resident need locomoting on unit?: Extensive assistance Locomotion off Unit Did the resident locomote off unit?: No - Activity did not occur How much help did the resident need locomoting off unit?: Total dependence Dressing Did the resident dress?: Yes Did the resident need help dressing?: One person physical assist Did you supervise the resident dressing or were they independent?: I supervised the activity How much help did the resident need dressing?: Extensive assistance Eating What was the resident offered?: Dinner Did the resident eat?: Yes What percent of their meal did the resident eat?: 100% What position was the resident in?: Sitting in a chair Did the resident eat their snack?: Yes What percent of the snack did the resident eat?: 100% Did the resident drink?: Yes How many milliliters (mL) did the resident drink?: 120 mL Did the resident need help eating?: Setup help only Did you supervise the resident eating or were they independent?: I supervised the activity How much help did the resident need eating?: Limited assistance Toilet Use Did the resident use the toilet?: Yes Did the resident need help using the toilet?: One person physical assist Did you supervise the resident using the toilet or were they independent?: I supervised the activity How much help did the resident need using the toilet?: Extensive assistance Personal Hygiene Did the resident do personal hygiene activities?: Yes Did the resident need help with personal hygiene?: One person physical assist Did you supervise the resident doing personal hygiene activities or were they independent?: I supervised the activity How much help did the resident need with personal hygiene activities?: Extensive assistance What types of oral hygiene were performed?: None What other hygiene or grooming activities were performed?: None Bathing Did the resident bathe?: No - Activity did not occur What items were used during and after bathing?: None Was the resident's hair washed?: No Was the resident's perineal area washed?: Yes Did you report the possible skin issue?: Yes (Pt has abdominal surgical incisions to chest wall and right lower leg.) Functional Rehabilitation Potential Resident believes he or she is capable of increased independence in at least some ADLs.: No Direct care staff believe resident is capable of increased independence in at least some ADLs.: Yes Education Documentation No documentation found. Education Comments No comments found. Sharon Howell LVN [facility] [id number] 18:45:08* Consultation (Routine) - Authorized Specialty Diagnoses / Procedures Referred By Jazzmine t Referred To Contact Cardiothoracic Surgery Diagnoses S/P coronary artery bypass graft x 4 Procedures AR OFFICE/OUTPATIENT NEW HIGH MDM [place] [address] [place] [address] Phone: tel: fax: Fabricio Lucas MD [address] [address] Phone: tel: fax: Referral ID Status Reason Start Date Expiration Date Visits Requested Visits Authorized [id number] Authorized Specialty Services Required 09/07/2024 03/06/2025 1 1 * Consultation (Routine) - Authorized Specialty Diagnoses / Procedures Referred By Contac t Referred To Contact Cardiology Diagnoses 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 S/P coronary artery bypass graft x 4 Procedures AR OFFICE/OUTPATIENT NEW HIGH MDM 60 MINUTES Ana María Gonzalez NP [address] [place] [address] Phone: tel: fax: [place] [address] [address] Phone: tel: fax: Referral ID Status Reason Start Date Expiration Date Visits Requested Visits Authorized [id number] Authorized Specialty Services Required 08/29/2024 02/25/2025 36 36 FRAME MOUNTER* Consultation (Routine) - Authorized Specialty Diagnoses / Procedures Referred By Contac t Referred To Contact Wound Care Procedures AR OFFICE/OUTPATIENT NEW HIGH MDM 60 MINUTES Rene Gilbert PA [address] [address] Phone: tel: fax: Referral ID Status Reason Start Date Expiration Date Visits Requested Visits Authorized [id number] Authorized Specialty Services Required 08/26/2024 02/22/2025 1 1 [id number] 18:45:08* Auth/Cert (Routine) Specialty Diagnoses / Procedures Referred By Jazzmine t Referred To Contact Diagnoses 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] Procedures AR CABG W/ARTERIAL GRAFT SINGLE ARTERIAL GRAFT AR CABG W/ARTERIAL GRAFT THREE ARTERIAL GRAFTS AR CORONARY ARTERY BYP W/VEIN & ARTERY GRAFT 2 VEIN AR CORONARY ARTERY BYP W/VEIN & ARTERY GRAFT 3 VEIN AR NDSC SURG W/VIDEO-ASSISTED HARVEST VEIN CABG CORONARY ARTERY BYPASS GRAFT WITH SHAHEED AND EVH CORONARY ARTERY BYPASS GRAFT WITH SHAHEED AND EVH CORONARY ARTERY BYPASS GRAFT WITH SHAHEED AND EV CORONARY ARTERY BYPASS GRAFT WITH SHAHEED AND EV ENDOSCOPIC VEIN HARVESTING Fabricio Lucas MD [address] [facility] [address] [place] [address] Phone: tel: fax: [facility] ([place]) [address] [address] Phone: tel: Referral ID Status Reason Start Date Expiration Date Visits Re quested Visits Authorized [id number] 1 1 [id number] 18:45:08* Audit-C Score Answer Date of Assessment Author 0 08/26/2024 8:00 PM Ana Luisa Quiros RN * Intimate Partner Violence Question Answer Date of Assessment Author Within the last year, have y ou been humiliated or emotionally abused in other ways by your partner or ex-partner? No 08/26/2024 8:00 PM Tristin Bustamante, PATRICIA Within the last year, have y ou been afraid of your partner or ex-partner? No 08/26/2024 8:00 PM Tristin Quiros, PATRICIA Within the last year, have y ou been raped or forced to have any kind of sexual activity by your partner or ex-partner? No 08/26/2024 8:00 PM Tristin Quiros, PATRICIA Within the last year, have y ou been kicked, hit, slapped, or otherwise physically hurt by your partner or ex-partner? No 08/26/2024 8:00 PM Tristin Quiros RN * * Calculated C-SSRS Risk Score (Lifetime/Recent) Answer Date of Assessment Author No Risk Indicated 08/26/2024 8:00 PM Govind Quiros RN * [place] Suicide Severity Rating Scale (Screener/Recent Self-Report) Question Answer Date of Assessment Author 1. Wish to be (Past 1 Month) No 025 8:00 PM Tristin Quiros RN 2. Non-Specific Active Suici darlene Thoughts (Past 1 Month) No 08/26/2024 8:00 PM Tristin Quiros, PATRICIA 6. Suicidal Behavior (Lifetime) No 8:00 PM Tristin Quiros RN [place] [id number] 18:45:08* Ronal Padron, SUPPORT ASSISTANT - 09/07/2024 9:40 AM CDT Physical Therapy Treatment Patient Name: Deepthi Moore Today’s Date: 09/07/24 Room Number: [id number]/[id number].CVIMU* Patient's Preferred Language: [place] Rican PT Assessment and Plan: Assessment Pt making progress toward therapy goals. Pt able to increase gait distance with/without use of RW. Pt's BP143/67 sitting prior to session, no report of dizziness during gait training. Pt mostly SBA for transfers and SBA/INFORMATICS SPECIALIST for gait training with/without use of RW. Pt's present during session. Post-Tx, patient left on recliner, no acute distress, all needs met, present, RN was informed of therapy session. Prognosis: Good Plan (Last filed value by PT) Treatment Plan/Goals Established with Patient/Caregiver: Yes Treatment/Interventions: Bed mobility training, Functional activities, Gait training, Transfer training, Therapeutic exercises, Patient education PT Plan: Skilled PT PT Frequency: 3-4 times per week until discharge PT Recommended Transfer Status: Stand by assist AM-PAC Basic Mobility Turning in bed without bedrails: None Lying on back to sitting on edge of flat bed: None Bed to chair: None Standing up from chair: None Walk in room: A Little Climbing 3-5 stairs: A Little Mobility Inpatient Raw Score: 22 -HLM Goal: 7 [facility] Highest Level of Mobility (-HLM) Scale Highest Level of Mobility Performed (-[facility]): Walked 25 feet or more (i.e. walked outside of room) Subjective:Pt sitting on recliner, present, no c/o pain, cleared by PATRICIA Khanna. Current Problem:This is a 68 y.o. female who is admitted to 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 [I25.10] Pain:Pain Assessment Pain Assessment: DVPRS Pain Score: 0 Pain Rating Scale (DVPRS): No pain Pain: (Post Therapy Score)none Vital Signs: WFL Lines and Drains: PIV Objective: Precautions: LE Weight Bearing Status: FWB Medical Precautions: Fall Post-Surgical Precautions: sternal Isolation Status: No active isolations Activity Tolerance:Endurance: Tolerates 30 min exercise with multiple rests Sitting Balance: Moves/returns truncal midpoint more than 2 inches in all planes Early Mobility/Exercise Safety Screen: Proceed with mobilization - No exclusion criteria met Activity Tolerance Comments: good Cognition:Overall Cognitive Status: Within Functional Limits Orientation Level: Oriented X4 Treatments:Therapeutic Activity Time Entry: 15 Therapeutic Activity 1: functional transfers Transfers: Transfers Transfer: Yes Transfer 1 Level of Assistance 1: Supervision/touching assistance (SBA) Trials/Comments 1: sit<>stand SBA with/without RW, VCs for sternal precautions Transfer To/From: Mxu-nf-Iirly/Jcxsv-me-Yun Assistive Devices And Adaptive Equipments: Walker, front-wheeled Gait Training:Gait Training Time Entry: 20 Gait Training Activity 1 Distance (enter in feet): 130ft Gait Training Activity 1: Indoor surface Assistive Devices And Adaptive Equipments: Walker, front-wheeled Level of Assistance 1: Supervision/touching assistance (SBA) Gait Training Activity 1 Comment: SBA using RW, w/c follow by tech, step through gait, narrow REAGAN Gait Training Activity 2 Distance (enter in feet): 110ft Gait Training Activity 2: Indoor surface Assistive Devices And Adaptive Equipments: No device Level of Assistance 2: Supervision/touching assistance (INFORMATICS SPECIALIST with RUE) Gait Training Activity 2 Comment: no AD, INFORMATICS SPECIALIST with RUE, w/c follow, step through gait, narrow REAGAN, no LOB Patient EducationEducation Documentation Precautions, taught by Ronal Padron PTA at 09/07/2024 12:17 PM. Learner: Patient Readiness: Acceptance Method: Explanation Response: Verbalizes Understanding Education CommentsNo comments found. GoalEncounter Goals Encounter Goals (Active) Patient will ambulate >400 feet distance using no device with no assistance Independent (Progressing) Start: 08/30/24 Expected End: 09/27/24 Patient will perform chair to and from bed transfer with no assistance Independent (Progressing) Start: 08/30/24 Expected End: 09/27/24 Patient will perform supine to sit /sit to supine on bed with no assistance Mod I demonstrating control (Progressing) Start: 08/30/24 Expected End: 09/27/24 General Visit Information Family/Caregiver Present: Yes Others Present: , tech: Nancy Post Therapy Checklist - in chair, call gonzalez within reach, phone within reach, and with family nearby Time Calculation:Start Time: 0940 Stop Time: 1015 Time Calculation (min): 35 min PT Recreation Leader Used: Sarabjit Stephenson AttestationSupervising Physical Therapist: Toi Sanchez PT Treatment Note: If this is the last documented treatment, then it will signify discharge from acute care prior to discharge from the therapy service and will serve as the discharge summary. Ronal Padron PTA * Cisco Ruiz Jr., MD - 09/06/2024 4:44 PM CDT Images from the original note were not included. Cardiology Progress Note SUBJECTIVE: No acute changes. Objective VITALS:Visit Vitals BP 121/61 Pulse 88 Temp 37.3 ?C (99.2 ?F) Resp 16 Ht 1.651 m (5' 5") Wt 87.2 kg (192 lb 3.9 oz) SpO2 100% BMI 31.99 kg/m? OB Status Postmenopausal Smoking Status Never BSA 2 m? INTAKE/OUTPUT: Intake/Output Summary (Last 24 hours) at 09/06/2024 1644Last data filed at 09/06/2024 1602 Gross per 24 hour Intake 723.33 ml Output 1 ml Net 722.33 ml I/O last 3 completed shifts:In: 640.4 (7.3 mL/kg) [P.O.:220; Blood:420.4] Out: 1001 (11.5 mL/kg) [Urine:1000 (0.3 mL/kg/hr); Stool:1] Weight: 87.2 kg PHYSICAL EXAM: General: Alert, cooperative, no distressHEENT: NC/AT, anicteric Cardiac: RRR Lungs: CTAB Abdomen: Soft, NT/ND Extremities: No edema Neuro: Non-focal MEDICATION:albumin human, 25 g, Intravenous, Once aspirin EC, 81 mg, Oral, Daily brimonidine, 1 drop, Both Eyes, BID clopidogrel, 75 mg, Oral, Daily furosemide, 40 mg, Oral, Daily [Held by provider] heparin, 5,000 Units, Subcutaneous, q8h insulin glargine, 30 Units, Subcutaneous, Daily insulin lispro, 7 Units, Subcutaneous, TID AC latanoprost, 1 drop, Both Eyes, Nightly methocarbamol, 750 mg, Oral, q8h pantoprazole, 40 mg, Oral, Daily before breakfast polyethylene glycol (PEG) 3350, 17 g, Oral, Daily potassium chloride, 20 mEq, Oral, Daily rosuvastatin, 20 mg, Oral, Nightly sennosides, 2 tablet, Oral, BID timolol, 1 drop, Both Eyes, BID LABS/IMAGING:Results from last 7 days Lab Units 09/06/24 1528 09/06/24 0627 09/06/24 0422 09/05/24 1144 09/05/24 0607 09/04/24 0556 09/04/24 0517 09/03/24 0616 09/03/24 0359 09/02/24 0653 09/02/24 0517 SODIUM mEq/L -- -- 141 -- 138 -- 138 -- 138 -- 140 POTASSIUM mEq/L -- -- 3.9 -- 3.8 -- 3.9 -- 3.9 -- 4.0 CHLORIDE mEq/L -- -- 101 -- 102 -- 103 -- 103 -- 105 CO2 mEq/L -- -- 31.5* -- 25.3 -- 25.9 -- 23.0 -- 26.9 BUN mg/dL -- -- 12 -- 11 -- 15 -- 15 -- 18 CREATININE mg/dL -- -- 0.91 -- 0.64 -- 0.78 -- 0.63 -- 0.64 GLUCOSE mg/dL -- -- 206* -- 108* -- 167* -- 115* -- 78 POC GLUCOSE mg/dL 328* < > -- < > -- < > -- < > -- < > -- CALCIUM mg/dL -- -- 9.0 -- 8.5 -- 8.4 -- 8.5 -- 8.5 MAGNESIUM mg/dL -- -- -- -- -- -- 1.91 -- 1.92 -- 2.07 PHOSPHORUS mg/dL -- -- -- -- -- -- 2.9 -- 2.9 -- 3.2 < > = values in this interval not displayed. No lab exists for component: "TBILI", "DBILI" Results from last 7 daysLab Units 09/06/24 0422 09/05/24 0607 09/04/24 0517 WBC 10*3/uL 14.88* 16.46* 14.60* HEMOGLOBIN g/dL 7.8* 8.2* 7.4* HEMATOCRIT % 25.1* 25.6* 23.5* PLATELETS 10*3/uL 262 208 221 No lab exists for component: "TROPTHS", "PROBNPNTERM" ECHOCARDIOGRAM:No results found for this or any previous visit. 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 HTN- controlled 3. Anemia- transfused 4. Diabetes- as per primary Pt wishes to go to rehab inJames Ruiz Jr., MD Commercial [employer] Estate Sales Manager [facility] * Valentina Soriano PTA - 09/06/2024 1:27 PM CDT PT Encounter Note Patient Name: Deepthi Moore Todays Date: 09/06/2024 Room Number: [id number]/[id number].CVIMU* Patient's Preferred Language: Puerto Rican Missed Treatment Time and Reason: Missed Time Reason: Other (Comment) (Pt. was getting blood transfusion. Pt.'s CM asked Pt. to be assess for stair training. Pls do stair training at tomorrow's therapy. Nrsg communicated.) Valentina Soriano PTA * Annie Ledezma MD - 09/06/2024 1:09 PM CDT [facility] Hospital[facility] Progress Note Subjective Patient seen and examined. Reports feeling better, Still with exertional dyspnea, hgb trended down to 7.8, getting 2 unit PRBC transfusion, will receive 1 dose of Lasix. Objective Last Recorded Vitals Blood pressure 130/63, pulse 90, temperature 36.9 ?C (98.4 ?F), temperature source Oral, resp. rate 18, height 1.651 m (5' 5"), weight 87.2 kg (192 lb 3.9 oz), SpO2 100%. Physical Exam: General: Awake and alert, in no acute distress HEENT: Normocephalic, atraumatic, neck is supple, no thyromegaly. CVS: S1S2 normal, RRR Lungs: Fair air entry anteriorly with mildly reduced breath sounds along the bases Abdomen: Soft, NT, ND, normoactive bowel sounds Extremities: No significant pedal edema, SAMARA drain in place Neuro: AO x 3, no focal neuro deficit Psychiatric-mood and affect normal Results: Results from last 7 days Lab Units 09/06/24 0422 09/05/24 0607 09/04/24 0517 WBC 10*3/uL 14.88* 16.46* 14.60* HEMOGLOBIN g/dL 7.8* 8.2* 7.4* HEMATOCRIT % 25.1* 25.6* 23.5* PLATELETS 10*3/uL 262 208 221 Results from last 7 days Lab Units 09/06/24 1139 09/06/24 0627 09/06/24 0422 09/05/24 1144 09/05/24 0607 09/04/24 0556 09/04/24 0517 SODIUM mEq/L -- -- 141 -- 138 -- 138 POTASSIUM mEq/L -- -- 3.9 -- 3.8 -- 3.9 CHLORIDE mEq/L -- -- 101 -- 102 -- 103 CO2 mEq/L -- -- 31.5* -- 25.3 -- 25.9 BUN mg/dL -- -- 12 -- 11 -- 15 CREATININE mg/dL -- -- 0.91 -- 0.64 -- 0.78 CALCIUM mg/dL -- -- 9.0 -- 8.5 -- 8.4 GLUCOSE mg/dL -- -- 206* -- 108* -- 167* POC GLUCOSE mg/dL 265* 198* -- < > -- < > -- < > = values in this interval not displayed. Recent Images CT chest Small bilateral pleural effusions are seen which both appear free flowing. There is also volume loss seen in the left lung base with air bronchograms. Atelectasis versus pneumonia are differential considerations. Scheduled Medsalbumin human, 25 g, Intravenous, Once aspirin EC, 81 mg, Oral, Daily brimonidine, 1 drop, Both Eyes, BID clopidogrel, 75 mg, Oral, Daily furosemide, 40 mg, Oral, Daily [Held by provider] heparin, 5,000 Units, Subcutaneous, q8h insulin glargine, 30 Units, Subcutaneous, Daily insulin lispro, 7 Units, Subcutaneous, TID AC latanoprost, 1 drop, Both Eyes, Nightly methocarbamol, 750 mg, Oral, q8h pantoprazole, 40 mg, Oral, Daily before breakfast polyethylene glycol (PEG) 3350, 17 g, Oral, Daily potassium chloride, 20 mEq, Oral, Daily rosuvastatin, 20 mg, Oral, Nightly sennosides, 2 tablet, Oral, BID timolol, 1 drop, Both Eyes, BID PRN medications: acetaminophen, dextrose, dextrose, docusate sodium, glucagon, hydrALAZINE, [Held by provider] HYDROmorphone, insulin lispro, lidocaine, melatonin, oxyCODONE, oxyCODONE, polyethylene glycol (PEG) 3350, sodium chloride Assessment & Plan 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 Had 2 episodes of decreased responsiveness on POD #1. Carotid ultrasound showed no hemodynamically significant stenosis, and echocardiogram shows ejection fraction of 45%. C/W current supportive care Post op management as per CVS-chest tube removed 09/02, noticed previous chest tube site bleeding, hold SQH Continues to remain hemodynamically stable off pressors Continue with ASA, plavix, statin Acute post-operative pain Multimodal pain regimen, muscle relaxants, bowel regimen Diabetes mellitus, type 2 (HCC) Will continue insulin glargine 30 unit, pre meal insulin, insulin sliding scale, accuheck Primary hypertension Has been weaned off pressors Will consider initiation of low-dose beta-blockers when blood pressure feasible Ischemic cardiomyopathy C/w medical management Echo shows EF of 45%, aim to maintain euvolemic status On lasix 40 mg daily Acute blood loss anemia (ABLA)S/p one unit PRBC transfusion, plan to transfuse 2 units units today Will continue to monitor and transfuse as needed. Macular degenerationContinue with eye drops as appropriate Cardiogenic shock (HCC)Resolved and stable Superficial vein thrombosisright proximal greater saphenous vein Supportive with leg elevation and warm compression Current Diet: Adult Diet Carbohydrate Controlled; Carb choice 1800 robert; 2 gm Sodium VTE Prophylaxis heparin - 5000 units/mL Annie Ledezma MD09/06/2024 This note was dictated with the use of [employer] speech recognition software. Please use best judgement when interpreting and excuse any drying and winding supervisor errors. If any questions in this regard, you can reach out to me at [phone]. * Kimmie Chawla, OT - 09/06/2024 9:35 AM CDT Occupational Therapy Treatment Deeptih Moore 1955 Room [id number]/[email or web address].CVIMU* Assessment: Pt was seen for OT treatment focus on functional strength and ADL's. Pt present min to CGA for ADL's and transfers. She demo decrease balance and activity tolerance. Pt cont to perform below her baseline but good potential to recovery. She will cont to benefit from OT POC. OT Assessment Results: Impaired ADL status, Impaired endurance, Impaired functional mobility, Impaired right upper extremity, Impaired left upper extremity Prognosis: Good Barriers to Discharge: Complicated medical history Evaluation/Treatment Tolerance: Patient tolerated treatment well Medical Staff Made Aware: Yes Strengths: Ability to acquire knowledge Plan: Treatment Plan/Goals Established with Patient/Caregiver: Yes Treatment Interventions: ADL retraining, Endurance training, Functional transfer training, UE strengthening/ROM OT Planned Treatments: Activities of Daily Living, Balance training, Edema managment, Energy conservation training, Manual therapy, Therapeutic activities, Therapeutic exercises OT Plan: Skilled OT OT Frequency: 2-3 times per week until discharge Equipment Recommended: Shower bath chair AM-PAC Daily Activity: Putting on and taking off regular lower body clothing: A Little Bathing (including washing, rinsing, drying): A Little Toileting, which includes using toilet, bedpan or urinal: None Putting on and taking off regular upper body clothing: A Little Taking care of personal grooming such as brushing teeth: None Eating Meals: None AM-PAC Daily Activity Raw Score: 21 [facility] Highest Level of Mobility (-HLM) ScaleHighest Level of Mobility Performed (-HLM): Walked 10 steps or more (i.e. walked to restroom) Preferred Language: [place]ican Subjective"I need to use the restroom" Treatment: 09/06/24 0935OT Last Visit OT Received On 09/06/24 Time Calculation Start Time 0935 Stop Time 1000 Time Calculation (min) 25 min Precautions UE Weight Bearing Status FWB LE Weight Bearing Status FWB Medical Precautions Standard,Fall Post-Surgical Precautions Sternal Precautions Pain Assessment Pain Assessment DVPRS Pain Score 0 Pain Rating Scale (DVPRS) 0 ADL Self Care/Home Management (ADLs) Time Entry 25 Eating Assistance Independent Grooming Assistance Independent Bathing Assistance Partial/Mod assistance UE Dressing Assistance Partial/Mod assistance LE Dressing Assistance Partial/Mod assistance Toileting Assistance Supervision/touching assistance Bed Mobility Bed Mobility No Transfers Transfer Yes Transfer 1 Level of Assistance 1 Setup/clean-up assistance Transfer To/From [id number] Assistive Devices And Adaptive Equipments Walker, front-wheeled Transfers 2 Technique 2 Via walking Level of Assistance 2 Supervision/touching assistance Transfer To/From Other (specify) (Sink) Assistive Devices And Adaptive Equipments Walker, front-wheeled Toilet Transfers Toilet Transfer To/From Toilet Transfer Type Via walking Level of Assistance Supervision/touching assistance Assistive Devices And Adaptive Equipments Walker, Front-wheeled AM-PAC Daily Activity Inpatient Putting on and taking off regular lower body clothing 3 Bathing (including washing, rinsing, drying) 3 Toileting, which includes using toilet, bedpan or urinal 4 Putting on and taking off regular upper body clothing 3 Taking care of personal grooming such as brushing teeth 4 Eating Meals 4 AM-PAC Daily Activity Raw Score 21 OT Assessment OT Assessment Results Impaired ADL status;Impaired endurance;Impaired functional mobility;Impaired right upper extremity;Impaired left upper extremity Prognosis Good Barriers to Discharge Complicated medical history Evaluation/Treatment Tolerance Patient tolerated treatment well Medical Staff Made Aware Yes Strengths Ability to acquire knowledge OT Plan Treatment Plan/Goals Established with Patient/Caregiver Yes Treatment Interventions ADL retraining;Endurance training;Functional transfer training;UE strengthening/ROM OT Plan Skilled OT OT Frequency 2-3 times per week until discharge Equipment Recommended Shower bath chairOT Planned Treatments Activities of Daily Living;Balance training;Edema managment;Energy conservation training;Manual therapy;Therapeutic activities;Therapeutic exercises OT Duration Discharge Mobility Highest Level of Mobility Performed (JH-HLM) 6 During morning ADL's routine and training. Pt re-educated on breathingexercises, energy conservation and precautions within ADL's morning routine. Pt transition STS via RW, SBA. Pt able to ambulated to the restroom with slow steady pace. She got on/off regular toilet with SBA and ind for cristina care. Pt then transfer to the sink for grooming. She demo SBA to perform oral, facial and hand hygiene in standing. Pttransfer back to bedside chair for blood transfusion. RN in the room t/o gina. Pt educated on fall prevention, OT POC and rehab progression. Pt left C, at end of session, all needs in reach, alarm intact. Education DocumentationNo documentation found. Education Comments No comments found. Encounter Goals Encounter Goals (Active) LTG - Patient will demonstrate Intervention to enhance balance for safe completion of daily activities SPV Start: 08/30/24 Expected End: 09/09/24 LTG - Patient will demonstrate use of appropriate intervention for safe dressing of upper extremities mod I Start: 08/30/24 Expected End: 09/09/24 LTG - Patient will demonstrate safety requirements appropriate to situation/environment mod I Start: 08/30/24 Expected End: 09/09/24 Treatment Note: If this is the last documented treatment, then it will signify discharge from acute care prior to discharge from the therapy service and will serve as the discharge summary. Kimmie Chawla OT * Annie Ledezma MD - 09/05/2024 4:18 PM CDT [facility] Hospitalist Progress Note Subjective Patient seen and examined. Still with exertional dyspnea, hgb improved after PRBC transfusion yesterday. Noticed worsening of leukocytosis, afebrile. Objective Last Recorded Vitals Blood pressure (!) 134/51, pulse 81, temperature 36.7 ?C (98.1 ?F), resp. rate 18, height 1.651 m (5' 5"), weight 87.2 kg (192 lb 3.9 oz), SpO2 99%. Physical Exam: General: Awake and alert, in no acute distress HEENT: Normocephalic, atraumatic, neck is supple, no thyromegaly. CVS: S1S2 normal, RRR Lungs: Fair air entry anteriorly with mildly reduced breath sounds along the bases Abdomen: Soft, NT, ND, normoactive bowel sounds Extremities: No significant pedal edema, SAMARA drain in place Neuro: AO x 3, no focal neuro deficit Psychiatric-mood and affect normal Results: Results from last 7 days Lab Units 09/05/24 0607 09/04/24 0517 09/03/24 0359 WBC 10*3/uL 16.46* 14.60* 14.19* HEMOGLOBIN g/dL 8.2* 7.4* 8.8* HEMATOCRIT % 25.6* 23.5* 27.8* PLATELETS 10*3/uL 208 221 194 Results from last 7 days Lab Units 09/05/24 1535 09/05/24 1144 09/05/24 0607 09/04/24 0556 09/04/24 0517 09/03/24 0616 09/03/24 0359 SODIUM mEq/L -- -- 138 -- 138 -- 138 POTASSIUM mEq/L -- -- 3.8 -- 3.9 -- 3.9 CHLORIDE mEq/L -- -- 102 -- 103 -- 103 CO2 mEq/L -- -- 25.3 -- 25.9 -- 23.0 BUN mg/dL -- -- 11 -- 15 -- 15 CREATININE mg/dL -- -- 0.64 -- 0.78 -- 0.63 CALCIUM mg/dL -- -- 8.5 -- 8.4 -- 8.5 GLUCOSE mg/dL -- -- 108* -- 167* -- 115* POC GLUCOSE mg/dL 253* 127* -- < > -- < > -- < > = values in this interval not displayed. Recent Images CT chest Small bilateral pleural effusions are seen which both appear free flowing. There is also volume loss seen in the left lung base with air bronchograms. Atelectasis versus pneumonia are differential considerations. Scheduled Medsacetaminophen, 1,000 mg, Oral, q8h DANTE albumin human, 25 g, Intravenous, Once aspirin EC, 81 mg, Oral, Daily brimonidine, 1 drop, Both Eyes, BID clopidogrel, 75 mg, Oral, Daily furosemide, 40 mg, Oral, Daily [Held by provider] heparin, 5,000 Units, Subcutaneous, q8h insulin glargine, 30 Units, Subcutaneous, Daily insulin lispro, 7 Units, Subcutaneous, TID AC latanoprost, 1 drop, Both Eyes, Nightly methocarbamol, 750 mg, Oral, q8h pantoprazole, 40 mg, Oral, Daily before breakfast polyethylene glycol (PEG) 3350, 17 g, Oral, Daily potassium chloride, 20 mEq, Oral, Daily rosuvastatin, 20 mg, Oral, Nightly sennosides, 2 tablet, Oral, BID silver nitrate, , Topical, Once timolol, 1 drop, Both Eyes, BID PRN medications: dextrose, dextrose, docusate sodium, glucagon, hydrALAZINE, [Held by provider] HYDROmorphone, insulin lispro, lidocaine, melatonin, oxyCODONE, oxyCODONE, polyethylene glycol (PEG) 3350, sodium chloride Assessment & Plan 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 Had 2 episodes of decreased responsiveness on POD #1. Carotid ultrasound showed no hemodynamically significant stenosis, and echocardiogram shows ejection fraction of 45%. C/W current supportive care Post op management as per CVS-chest tube removed 09/02, noticed previous chest tube site bleeding, hold SQH Continues to remain hemodynamically stable off pressors Continue with ASA, plavix, statin Acute post-operative pain Multimodal pain regimen, muscle relaxants, bowel regimen Diabetes mellitus, type 2 (HCC) Will continue insulin glargine 30 unit, pre meal insulin, insulin sliding scale, accuheck Primary hypertension Has been weaned off pressors Will consider initiation of low-dose beta-blockers when blood pressure feasible Ischemic cardiomyopathy C/w medical management Echo shows EF of 45%, aim to maintain euvolemic status On lasix 40 mg daily Acute blood loss anemia (ABLA)Secondary to intra op blood loss. Will continue to monitor and transfuse as needed. Macular degenerationContinue with eye drops as appropriate Cardiogenic shock (HCC)Resolved and stable Superficial vein thrombosisright proximal greater saphenous vein Supportive with leg elevation and warm compression Current Diet: Adult Diet Carbohydrate Controlled; Carb choice 1800 robert; 2 gm Sodium VTE Prophylaxis heparin - 5000 units/mL Annie Ledezma MD09/05/2024 This note was dictated with the use of [employer] speech recognition software. Please use best judgement when interpreting and excuse any drying and winding supervisor errors. If any questions in this regard, you can reach out to me at [phone]. * Cisco Ruiz Jr., MD - 09/05/2024 9:10 AM CDT Images from the original note were not included. Cardiology Progress Note SUBJECTIVE: Pt seen and examinedSOB this morning during a blood transfusion - none now and no CP Objective VITALS:Visit Vitals BP (!) 134/51 Pulse 81 Temp 36.7 ?C (98.1 ?F) Resp 18 Ht 1.651 m (5' 5") Wt 87.2 kg (192 lb 3.9 oz) SpO2 99% BMI 31.99 kg/m? OB Status Postmenopausal Smoking Status Never BSA 2 m? INTAKE/OUTPUT: Intake/Output Summary (Last 24 hours) at 09/05/2024 1610Last data filed at 09/05/2024 0500 Gross per 24 hour Intake 640.42 ml Output 1000 ml Net -359.58 ml I/O last 3 completed shifts:In: 790.4 (9.1 mL/kg) [P.O.:370; Blood:420.4] Out: 1000 (11.5 mL/kg) [Urine:1000 (0.3 mL/kg/hr)] Weight: 87.2 kg PHYSICAL EXAM: General: Alert, cooperative, no distressHEENT: NC/AT, anicteric Cardiac: RRR Lungs: Decreased BS Abdomen: Soft, NT/ND Extremities: No edema Neuro: Non-focal MEDICATION:acetaminophen, 1,000 mg, Oral, q8h DANTE albumin human, 25 g, Intravenous, Once aspirin EC, 81 mg, Oral, Daily brimonidine, 1 drop, Both Eyes, BID clopidogrel, 75 mg, Oral, Daily furosemide, 40 mg, Oral, Daily [Held by provider] heparin, 5,000 Units, Subcutaneous, q8h insulin glargine, 30 Units, Subcutaneous, Daily insulin lispro, 7 Units, Subcutaneous, TID AC latanoprost, 1 drop, Both Eyes, Nightly methocarbamol, 750 mg, Oral, q8h pantoprazole, 40 mg, Oral, Daily before breakfast polyethylene glycol (PEG) 3350, 17 g, Oral, Daily potassium chloride, 20 mEq, Oral, Daily rosuvastatin, 20 mg, Oral, Nightly sennosides, 2 tablet, Oral, BID silver nitrate, , Topical, Once timolol, 1 drop, Both Eyes, BID LABS/IMAGING:Results from last 7 days Lab Units 09/05/24 1535 09/05/24 1144 09/05/24 0607 09/04/24 0556 09/04/24 0517 09/03/24 0616 09/03/24 0359 09/02/24 0653 09/02/24 0517 SODIUM mEq/L -- -- 138 -- 138 -- 138 -- 140 POTASSIUM mEq/L -- -- 3.8 -- 3.9 -- 3.9 -- 4.0 CHLORIDE mEq/L -- -- 102 -- 103 -- 103 -- 105 CO2 mEq/L -- -- 25.3 -- 25.9 -- 23.0 -- 26.9 BUN mg/dL -- -- 11 -- 15 -- 15 -- 18 CREATININE mg/dL -- -- 0.64 -- 0.78 -- 0.63 -- 0.64 GLUCOSE mg/dL -- -- 108* -- 167* -- 115* -- 78 POC GLUCOSE mg/dL 253* < > -- < > -- < > -- < > -- CALCIUM mg/dL -- -- 8.5 -- 8.4 -- 8.5 -- 8.5 MAGNESIUM mg/dL -- -- -- -- 1.91 -- 1.92 -- 2.07 PHOSPHORUS mg/dL -- -- -- -- 2.9 -- 2.9 -- 3.2 < > = values in this interval not displayed. No lab exists for component: "TBILI", "DBILI" Results from last 7 daysLab Units 09/05/24 0607 09/04/24 0517 09/03/24 0359 WBC 10*3/uL 16.46* 14.60* 14.19* HEMOGLOBIN g/dL 8.2* 7.4* 8.8* HEMATOCRIT % 25.6* 23.5* 27.8* PLATELETS 10*3/uL 208 221 194 No lab exists for component: "TROPTHS", "PROBNPNTERM" ECHOCARDIOGRAM:No results found for this or any previous visit. EKG:Results for orders placed or performed during the hospital encounter of 08/26/24 ECG 12 lead Collection Time: 08/26/24 1:15 PM Result Value Ref Range Ventricular Rate 75 BPM Atrial Rate 75 BPM AR Interval 176 ms QRS Duration 144 ms QT/QTc 460 ms QTc Calculation 513 ms P-[place] 67 degrees R-[place] 88 degrees T-[place] -36 degrees Patient Active Problem ListDiagnosis 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 Diabetes mellitus, type 2 (HCC) Primary hypertension Ischemic cardiomyopathy Acute blood loss anemia (ABLA) Macular degeneration Cardiogenic shock (HCC) Acute post-operative pain Superficial vein thrombosis ASSESSMENT & PLAN: S/P CABG- SOB this morning during blodd transfusion - better now - CXR ordered - oozing from Alexis drain site - dressing changed by CVS 2. HTN- controlled 3. Electrolyte imbalance- K: 3.3, on daily lasix and KCL - Will give additional KCL 4. Diabetes- as per primary Cisco Ruiz Jr., MD [employer] [facility] * Annie Ledezma MD - 09/04/2024 6:04 PM CDT [facility] Hospitalist Progress Note Subjective Patient seen and examined. Still with exertional dyspnea, very SOB with minimal ambulating. Hgb trended down to 7.4, getting one unit PRBC transfusion. Previous chest tube site some bleeding. CT chest ordered. Objective Last Recorded Vitals Blood pressure (!) 112/56, pulse 77, temperature 37 ?C (98.6 ?F), resp. rate 16, height 1.651 m (5' 5"), weight 86.5 kg (190 lb 11.2 oz), SpO2 100%. Physical Exam: General: Awake and alert, in no acute distress HEENT: Normocephalic, atraumatic, neck is supple, no thyromegaly. CVS: S1S2 normal, RRR Lungs: Fair air entry anteriorly with mildly reduced breath sounds along the bases Abdomen: Soft, NT, ND, normoactive bowel sounds Extremities: No significant pedal edema, SAMARA drain in place Neuro: AO x 3, no focal neuro deficit Psychiatric-mood and affect normal Results: Results from last 7 days Lab Units 09/04/24 0517 09/03/24 0359 09/02/24 0517 WBC 10*3/uL 14.60* 14.19* 12.20* HEMOGLOBIN g/dL 7.4* 8.8* 9.6* HEMATOCRIT % 23.5* 27.8* 29.9* PLATELETS 10*3/uL 221 194 154* Results from last 7 days Lab Units 09/04/24 1544 09/04/24 1145 09/04/24 0556 09/04/24 0517 09/03/24 0616 09/03/24 0359 09/02/24 0653 09/02/24 0517 SODIUM mEq/L -- -- -- 138 -- 138 -- 140 POTASSIUM mEq/L -- -- -- 3.9 -- 3.9 -- 4.0 CHLORIDE mEq/L -- -- -- 103 -- 103 -- 105 CO2 mEq/L -- -- -- 25.9 -- 23.0 -- 26.9 BUN mg/dL -- -- -- 15 -- 15 -- 18 CREATININE mg/dL -- -- -- 0.78 -- 0.63 -- 0.64 CALCIUM mg/dL -- -- -- 8.4 -- 8.5 -- 8.5 GLUCOSE mg/dL -- -- -- 167* -- 115* -- 78 POC GLUCOSE mg/dL 253* 231* 163* -- < > -- < > -- < > = values in this interval not displayed. Recent Images No results found. Scheduled Meds acetaminophen, 1,000 mg, Oral, q8h DANTE albumin human, 25 g, Intravenous, Once aspirin EC, 81 mg, Oral, Daily brimonidine, 1 drop, Both Eyes, BID clopidogrel, 75 mg, Oral, Daily furosemide, 40 mg, Intravenous, Once furosemide, 40 mg, Oral, Daily [Held by provider] heparin, 5,000 Units, Subcutaneous, q8h insulin glargine, 30 Units, Subcutaneous, Daily insulin lispro, 7 Units, Subcutaneous, TID AC latanoprost, 1 drop, Both Eyes, Nightly methocarbamol, 750 mg, Oral, q8h pantoprazole, 40 mg, Oral, Daily before breakfast polyethylene glycol (PEG) 3350, 17 g, Oral, Daily potassium chloride, 20 mEq, Oral, Daily rosuvastatin, 20 mg, Oral, Nightly sennosides, 2 tablet, Oral, BID timolol, 1 drop, Both Eyes, BID PRN medications: dextrose, dextrose, docusate sodium, glucagon, hydrALAZINE, [Held by provider] HYDROmorphone, insulin lispro, lidocaine, melatonin, oxyCODONE, oxyCODONE, polyethylene glycol (PEG) 3350, sodium chloride Assessment & Plan 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 Had 2 episodes of decreased responsiveness on POD #1. Carotid ultrasound showed no hemodynamically significant stenosis, and echocardiogram shows ejection fraction of 45%. C/W current supportive care Post op management as per [facility]S-chest tube removed 09/02, noticed previous chest tube site bleeding, hold SQH, follow up CT chest Continues to remain hemodynamically stable off pressors Continue with ASA, plavix, statin Acute post-operative pain Multimodal pain regimen, muscle relaxants, bowel regimen Diabetes mellitus, type 2 (HCC) Will continue insulin glargine 30 unit, pre meal insulin, insulin sliding scale, accuheck Primary hypertension Has been weaned off pressors Will consider initiation of low-dose beta-blockers when blood pressure feasible Ischemic cardiomyopathy C/w medical management Echo shows EF of 45%, aim to maintain euvolemic status On lasix 40 mg daily Acute blood loss anemia (ABLA)Secondary to intra op blood loss. Will continue to monitor and transfuse as needed. Will transfuse one unit PRBC, will give extra dose lasix after transfusion, Macular degenerationContinue with eye drops as appropriate Cardiogenic shock (HCC)Resolved and stable Superficial vein thrombosisright proximal greater saphenous vein Supportive with leg elevation and warm compression Current Diet: Adult Diet Carbohydrate Controlled; Carb choice 1800 robert VTE Prophylaxis heparin - 5000 units/mL Annie Ledezma MD09/04/2024 This note was dictated with the use of [employer] speech recognition software. Please use best judgement when interpreting and excuse any drying and winding supervisor errors. If any questions in this regard, you can reach out to me at [phone]. * Premna Jesus, SUPPORT ASSISTANT - 09/04/2024 9:42 AM CDT Physical Therapy Treatment Patient Name: Deepthi Moore Today’s Date: 09/04/24 Room Number: [id number]* Patient's Preferred Language: [place]ican PT Assessment and Plan: Assessment Pt participated w/ PT session today. Showing progress w/ overall mobility, takes time. Transfers w/ mild cues for sternal precautions. Ambulation activities progressed today w/ no symptoms of dizziness, did have fatigue w/ sob. Evaluation/Treatment Tolerance: Patient tolerated treatment well, Patient limited by fatigue Prognosis: Fair Medical Staff Made Aware: Yes Plan (Last filed value by PT) Treatment Plan/Goals Established with Patient/Caregiver: Yes Treatment/Interventions: Bed mobility training, Functional activities, Gait training, Transfer training, Therapeutic exercises, Patient education PT Plan: Skilled PT PT Frequency: 3-4 times per week until discharge PT Recommended Transfer Status: Stand by assist AM-PAC Basic Mobility Turning in bed without bedrails: A Little Lying on back to sitting on edge of flat bed: A Lot Bed to chair: A Little Standing up from chair: A Little Walk in room: A Little Climbing 3-5 stairs: A Lot Mobility Inpatient Raw Score: 16 -HLM Goal: 5 [facility] Highest Level of Mobility (-HLM) Scale Subjective: Pt willing to work w/ PT. Cleared by nurse Current Problem: This is a 68 y.o. female who is admitted to 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 [I25.10] Pain: Pain Assessment Pain Assessment: DVPRS Pain Score: 0 Pain Rating Scale (DVPRS): No pain Objective: Precautions: Medical Precautions: Standard,Fall Isolation Status: No active isolations Activity Tolerance: Endurance: Tolerates 10 - 20 min exercise with multiple rests Sitting Balance: Sits without support for more than 30 sec Early Mobility/Exercise Safety Screen: Proceed with mobilization - No exclusion criteria met Cognition: Overall Cognitive Status: Within Functional Limits Behavior/Cognition: Alert, Cooperative Orientation Level: Oriented X4 Treatments: Therapeutic Activity Time Entry: 8 Therapeutic Activity 1: Completed transfers from recliner chair. Cues for following through w/ sternal precaution during pushoff/ Therapeutic Activity 2: Ambulation activities completed w/ RW. Therapeutic Activity 3: Post ambulation pt back to sitting UIC. Bed Mobility: Pt UIC Transfers: Transfers Transfer: Yes Transfer 1 Technique 1: Stand step Level of Assistance 1: Supervision/touching assistance Transfer To/From: [id number] Assistive Devices And Adaptive Equipments: Walker, front-wheeled Gait Training: Gait Training Time Entry: 15 Gait Training Activity 1 Distance (enter in feet): 100ft, 70ft Gait Training Activity 1: Indoor surface Assistive Devices And Adaptive Equipments: Walker, front-wheeled Level of Assistance 1: Partial/Mod assistance (partial assist + 1 for safety, w/c follow, O2.) Gait Training Activity 1 Comment: step through gait, slow pace, decreased strides, cues for staying in RW, sitting break due to c/o's feeling sob. Patient Education Education Documentation Mobility, taught by Aurea Lee PTA at 09/04/2024 2:47 PM. Learner: Patient Readiness: Acceptance Method: Explanation Response: Verbalizes Understanding Education Comments No comments found. Goal Encounter Goals Encounter Goals (Active) Patient will ambulate >400 feet distance using no device with no assistance Independent (Not Met) Start: 08/30/24 Expected End: 09/27/24 Patient will perform chair to and from bed transfer with no assistance Independent (Progressing) Start: 08/30/24 Expected End: 09/27/24 Patient will perform supine to sit /sit to supine on bed with no assistance Mod I demonstrating control (Not Met) Start: 08/30/24 Expected End: 09/27/24 General Visit Information Family/Caregiver Present: Yes (spouse) Post Therapy Checklist - in chair, call gonzalez within reach, bed/chair alarm in place, phone within reach, and with family nearby Time Calculation:Start Time: 941 Stop Time: 1004 Time Calculation (min): 23 min PT Recreation Leader Used: Zack Gonzales AttestationSupervising Physical Therapist: Oswaldo Clifton PT Treatment Note: If this is the last documented treatment, then it will signify discharge from acute care prior to discharge from the therapy service and will serve as the discharge summary. Aurea Lee PTA * Annie Ledezma MD - 09/03/2024 12:18 PM [employer] [facility] Hospitalist Progress Note Subjective Patient seen and examined.complaint of some SOB exertional, she complaint of R leg around knee area tight and more swollen. She continued to have issues with orthostatic hypotension . Objective Last Recorded Vitals Blood pressure 133/60, pulse 69, temperature 36.8 ?C (98.2 ?F), resp. rate 18, height 1.651 m (5' 5"), weight 86.3 kg (190 lb 3.2 oz), SpO2 100%. Physical Exam: General: Awake and alert, in no acute distress HEENT: Normocephalic, atraumatic, neck is supple, no thyromegaly. CVS: S1S2 normal, RRR Lungs: Fair air entry anteriorly with mildly reduced breath sounds along the bases Abdomen: Soft, NT, ND, normoactive bowel sounds Extremities: No significant pedal edema, SAMARA drain in place Neuro: AO x 3, no focal neuro deficit Psychiatric-mood and affect normal Results: Results from last 7 days Lab Units 09/03/24 0359 09/02/24 0517 09/01/24 0258 WBC 10*3/uL 14.19* 12.20* 10.65* HEMOGLOBIN g/dL 8.8* 9.6* 10.5* HEMATOCRIT % 27.8* 29.9* 32.9* PLATELETS 10*3/uL 194 154* 150* Results from last 7 days Lab Units 09/03/24 1127 09/03/24 0616 09/03/24 0359 09/02/24 0653 09/02/24 0517 09/01/24 1204 09/01/24 1020 SODIUM mEq/L -- -- 138 -- 140 -- 140 POTASSIUM mEq/L -- -- 3.9 -- 4.0 -- 4.6* CHLORIDE mEq/L -- -- 103 -- 105 -- 106 CO2 mEq/L -- -- 23.0 -- 26.9 -- 27.8 BUN mg/dL -- -- 15 -- 18 -- 20 CREATININE mg/dL -- -- 0.63 -- 0.64 -- 0.82 CALCIUM mg/dL -- -- 8.5 -- 8.5 -- 8.5 GLUCOSE mg/dL -- -- 115* -- 78 -- 196* POC GLUCOSE mg/dL 157* 131* -- < > -- < > -- < > = values in this interval not displayed. Recent Images No results found. Scheduled Meds acetaminophen, 1,000 mg, Oral, q8h DANTE albumin human, 25 g, Intravenous, Once aspirin EC, 81 mg, Oral, Daily brimonidine, 1 drop, Both Eyes, BID clopidogrel, 75 mg, Oral, Daily furosemide, 40 mg, Oral, Daily heparin, 5,000 Units, Subcutaneous, q8h insulin glargine, 30 Units, Subcutaneous, Daily insulin lispro, 7 Units, Subcutaneous, TID AC latanoprost, 1 drop, Both Eyes, Nightly methocarbamol, 750 mg, Oral, q8h pantoprazole, 40 mg, Oral, Daily before breakfast polyethylene glycol (PEG) 3350, 17 g, Oral, Daily potassium chloride, 20 mEq, Oral, Daily rosuvastatin, 20 mg, Oral, Nightly sennosides, 2 tablet, Oral, BID timolol, 1 drop, Both Eyes, BID PRN medications: dextrose, dextrose, docusate sodium, glucagon, hydrALAZINE, [Held by provider] HYDROmorphone, insulin lispro, lidocaine, melatonin, oxyCODONE, oxyCODONE, polyethylene glycol (PEG) 3350 Assessment & Plan 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 Had 2 episodes of decreased responsiveness on POD #1. Carotid ultrasound showed no hemodynamically significant stenosis, and echocardiogram shows ejection fraction of 45%. C/W current supportive care Post op management as per [facility]-chest tube removed 09/02 Continues to remain hemodynamically stable off pressors Continue with ASA, plavix, statin Acute post-operative pain Multimodal pain regimen, muscle relaxants, bowel regimen Diabetes mellitus, type 2 (HCC) Will continue insulin glargine 30 unit, pre meal insulin, insulin sliding scale, accuheck Primary hypertension Has been weaned off pressors Will consider initiation of low-dose beta-blockers when blood pressure feasible Ischemic cardiomyopathy C/w medical management Echo shows EF of 45%, aim to maintain euvolemic status On lasix 40 mg daily Acute blood loss anemia (ABLA)Secondary to intra op blood loss. Will continue to monitor and transfuse as needed. Macular degenerationContinue with eye drops as appropriate Cardiogenic shock (HCC)Resolved and stable Superficial vein thrombosisright proximal greater saphenous vein Supportive with leg elevation and warm compression RLE pain and welling is worsening, will repeat Doppler Current Diet: Adult Diet Carbohydrate Controlled; Carb choice 1800 robert VTE Prophylaxis heparin - 5000 units/mL Annie Ledezma MD09/03/2024 This note was dictated with the use of [employer] speech recognition software. Please use best judgement when interpreting and excuse any drying and winding supervisor errors. If any questions in this regard, you can reach out to me at [phone]. FRAME MOUNTER * Sonia Dailey MD - 09/03/2024 12:00 AM RUG FRAME MOUNTER PATIENT NAME: DEEPTHI MOORE CONTACT SERIAL NUMBER: [id number] DATE OF PROGRESS NOTE: 09/03/2024 SUBJECTIVE: Ms. Moore is postoperative day #4 after undergoing coronary artery bypass grafting. She is seen on the telemetry unit and voices concern about her swollen right leg. OBJECTIVE: GENERAL: Ms. Mooer is alert and oriented at my visit. VITAL SIGNS: Her blood pressure is 133/60, and her heart rate is 80 at my visit. EXTREMITIES: Her feet are warm and well perfused . PERTINENT LABORATORY DATA: Shows a creatinine is 0.63, hemoglobin of 8.6, white count of 140,000. Her chest radiograph shows complete lung expansion. Her left lower lobe has atelectasis. ASSESSMENT: Coronary artery disease. PLAN: Ms. Moore is doing well and walking with physical therapy. An ultrasound has been ordered of her leg, although I suspect this may be more related to a saphenous vein harvest site hematoma as the right ankle seems to be in normal size. We will follow along. Dictated by: SONIA DAILEY MD RTB / ORG FFT * Annie Ledezma MD - 09/02/2024 5:06 PM RUG FRAME MOUNTER [facility] Hospitalist Progress Note Subjective Patient seen and examined. States overall feeling well, except for some mild surgical site discomfort. Otherwise no acute issues overnight, she has not walked today. Packing wires and chest tube were removed by [facility] this morning. Objective Last Recorded Vitals Blood pressure (!) 128/56, pulse 68, temperature 36.9 ?C (98.4 ?F), resp. rate 18, height 1.651 m (5' 5"), weight 87.7 kg (193 lb 4.8 oz), SpO2 100%. Physical Exam: General: Awake and alert, in no acute distress HEENT: Normocephalic, atraumatic, neck is supple, no thyromegaly. CVS: S1S2 normal, RRR Lungs: Fair air entry anteriorly with mildly reduced breath sounds along the bases, chest tube in place Abdomen: Soft, NT, ND, normoactive bowel sounds Extremities: No significant pedal edema, SAMARA drain in place Neuro: AO x 3, no focal neuro deficit Psychiatric-mood and affect normal Results: Results from last 7 days Lab Units 09/02/24 0517 09/01/24 0258 08/31/24 0332 WBC 10*3/uL 12.20* 10.65* 11.08* HEMOGLOBIN g/dL 9.6* 10.5* 10.6* HEMATOCRIT % 29.9* 32.9* 33.2* PLATELETS 10*3/uL 154* 150* 132* Results from last 7 days Lab Units 09/02/24 1655 09/02/24 1225 09/02/24 0653 09/02/24 0517 09/01/24 1204 09/01/24 1020 09/01/24 0259 09/01/24 0258 SODIUM mEq/L -- -- -- 140 -- 140 -- 141 POTASSIUM mEq/L -- -- -- 4.0 -- 4.6* -- 3.3* CHLORIDE mEq/L -- -- -- 105 -- 106 -- 106 CO2 mEq/L -- -- -- 26.9 -- 27.8 -- 28.5 BUN mg/dL -- -- -- 18 -- 20 -- 19 CREATININE mg/dL -- -- -- 0.64 -- 0.82 -- 0.72 CALCIUM mg/dL -- -- -- 8.5 -- 8.5 -- 8.7 GLUCOSE mg/dL -- -- -- 78 -- 196* -- 57* POC GLUCOSE mg/dL 97 237* 79 -- < > -- < > -- < > = values in this interval not displayed. Recent Images XR chest 1 view Result Date: 09/02/2024 EXAM: XR CHEST 1 VIEW INDICATION: CT removal. TECHNIQUE: Frontal view Pulmonary opacities are unchanged since yesterday. Unchanged left pleural effusion. Removal of chest tubes. No pneumothorax seen. Cardiomediastinal silhouette appears unchanged. Osseous structures appear unchanged. Electronically signed by: Bandar Tilley MD 09/02/2024 01:51 PM [facility] Scheduled Meds acetaminophen, 1,000 mg, Oral, q8h DANTE albumin human, 25 g, Intravenous, Once aspirin EC, 81 mg, Oral, Daily brimonidine, 1 drop, Both Eyes, BID clopidogrel, 75 mg, Oral, Daily [START ON 09/03/2024] furosemide, 40 mg, Oral, Daily heparin, 5,000 Units, Subcutaneous, q8h insulin glargine, 30 Units, Subcutaneous, Daily insulin lispro, 7 Units, Subcutaneous, TID AC latanoprost, 1 drop, Both Eyes, Nightly methocarbamol, 750 mg, Oral, q8h pantoprazole, 40 mg, Oral, Daily before breakfast polyethylene glycol (PEG) 3350, 17 g, Oral, Daily [START ON 09/03/2024] potassium chloride, 20 mEq, Oral, Daily rosuvastatin, 20 mg, Oral, Nightly sennosides, 2 tablet, Oral, BID timolol, 1 drop, Both Eyes, BID PRN medications: dextrose, dextrose, docusate sodium, glucagon, hydrALAZINE, [Held by provider] HYDROmorphone, insulin lispro, lidocaine, melatonin, oxyCODONE, oxyCODONE, polyethylene glycol (PEG) 3350 Assessment & Plan 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 Had 2 episodes of decreased responsiveness on POD #1. Carotid ultrasound showed no hemodynamically significant stenosis, and echocardiogram shows ejection fraction of 45%. C/W current supportive care Post op management as per [facility]-chest tube removed 09/02 Continues to remain hemodynamically stable off pressors Continue with ASA, plavix, statin Acute post-operative pain Multimodal pain regimen, muscle relaxants, bowel regimen Diabetes mellitus, type 2 (HCC) Will continue insulin glargine 30 unit, insulin sliding scale, accuheck Primary hypertension Has been weaned off pressors Will consider initiation of low-dose beta-blockers when blood pressure feasible-noted improvement in orthostatic hypotension Ischemic cardiomyopathyC/w medical management Echo shows EF of 45%, aim to maintain euvolemic status Remains clinically and symptomatically stable Acute blood loss anemia (ABLA) Secondary to intra op blood loss. Will continue to monitor and transfuse as needed. Macular degenerationContinue with eye drops as appropriate Cardiogenic shock (HCC)Resolved and stable Current Diet: Adult Diet Carbohydrate Controlled; Carb choice 1800 robert VTE Prophylaxis heparin - 5000 units/mL Annie Ledezma MD09/02/2024 This note was dictated with the use of [employer] speech recognition software. Please use best judgement when interpreting and excuse any drying and winding supervisor errors. If any questions in this regard, you can reach out to me at [phone]. FRAME MOUNTER * Beth Cisneros, PT - 09/02/2024 2:45 PM RUG FRAME MOUNTER Physical Therapy Treatment Patient Name: Deepthi Moore Today’s Date: 09/02/24 Room Number: [id number]* Patient's Preferred Language: [place]ican PT Assessment and Plan: Assessment Patient is very motivated to work with PT but it is limited by orthostatic hypotension and is symptomatic of it as well. She needs cues for sternal precautions and less help for mobility.No SOB noted. Prognosis: Good Medical Staff Made Aware: Yes Plan (Last filed value by PT) Treatment Plan/Goals Established with Patient/Caregiver: Yes Treatment/Interventions: Bed mobility training, Functional activities, Gait training, Transfer training, Therapeutic exercises, Patient education PT Plan: Skilled PT PT Frequency: 3-4 times per week until discharge PT Recommended Transfer Status: Stand by assist AM-PAC Basic Mobility Turning in bed without bedrails: A Little Lying on back to sitting on edge of flat bed: A Lot Bed to chair: A Little Standing up from chair: A Little Walk in room: A Little Climbing 3-5 stairs: A Lot Mobility Inpatient Raw Score: 16 -HLM Goal: 5 [facility] Highest Level of Mobility (JH-HLM) Scale Highest Level of Mobility Performed (JH-HLM): Static standing (1 or more minutes) Subjective: Patient agreed to work with PT Current Problem: This is a 68 y.o. female who is admitted to 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 [I25.10] Pain: Pain Assessment Pain Assessment: DVPRS Pain Score: 0 Pain Rating Scale (DVPRS): No pain Objective: Precautions: LE Weight Bearing Status: FWB Medical Precautions: Standard,Fall Post-Surgical Precautions: sternal Isolation Status: No active isolations Activity Tolerance: Early Mobility/Exercise Safety Screen: Proceed with mobilization - No exclusion criteria met Cognition: Overall Cognitive Status: Within Functional Limits Behavior/Cognition: Cooperative, Alert, Pleasant mood Orientation Level: Oriented X4 Treatments: Therapeutic Activity Time Entry: 13 Therapeutic Activity 1: Patient sitting in recliner, set up to amb with RW. She stood from recliner at [facility], needing cues to adhere to sternal precautions. She c/o significant dizziness in standing, needing to sit down. I measured her vitals in sitting 129/71, standing 99/49. Patient continued to feel dizzy and was instructed to sit down. She appears to be orthostatic hypotensive. I notified RN. I instructed patient it is unsafe at this time since she is c/o signficant dizziness along with a drop in BP. Patient expressed understanding and wanted to do execises. Exercises initiated. Transfers: Transfer 1 Technique 1: Stand step Level of Assistance 1: Supervision/touching assistance Transfer To/From: Chair Assistive Devices And Adaptive Equipments: Walker, front-wheeled Therapeutic Exercise: Therapeutic Exercise Time Entry: 10 Therapeutic Exercise Activity 1: Performed in sitting bilat LE x 15 reps AROM. Hips/ankles/knees Outcome Measures: 09/02/24 1324 Lulu RPE Scale Lulu RPE Scale - How Strenuous and Tiring The Work Feels 13 - Somewhat hard Patient Education Education Documentation Mobility, taught by Beth Cisneros PT at 09/02/2024 2:44 PM. Learner: Patient Readiness: Eager Method: Explanation Response: Verbalizes Understanding Education Comments No comments found. Goal Encounter Goals Encounter Goals (Active) Patient will ambulate >400 feet distance using no device with no assistance Independent (Progressing) Start: 08/30/24 Expected End: 09/27/24 Patient will perform chair to and from bed transfer with no assistance Independent (Progressing) Start: 08/30/24 Expected End: 09/27/24 Patient will perform supine to sit /sit to supine on bed with no assistance Mod I demonstrating control (Progressing) Start: 08/30/24 Expected End: 09/27/24 Post Therapy Checklist - in chair, call gonzalez within reach, and bed/chair alarmin place Time Calculation:Start Time: 1324 Stop Time: 1348 Time Calculation (min): 24 min PT Recreation Leader Used: N.A. Treatment Note: If this is the last documented treatment, then it will signify discharge from acute care prior to discharge from the therapy service and will serve as the discharge summary. Beth Cisneros PT FRAME MOUNTER * Bibiana Narayan NP - 09/02/2024 9:06 AM RUG FRAME MOUNTER Images from the original note were not included. Cardiology Progress Note SUBJECTIVE: Pt awake and alert, states she feels much betterPt states SOB is much better, no more issues with standing Pt now on tele floor Objective VITALS:Visit Vitals BP 95/64 Pulse 66 Temp 36.8 ?C (98.2 ?F) Resp 18 Ht 1.651 m (5' 5") Wt 87.7 kg (193 lb 4.8 oz) SpO2 100% BMI 32.17 kg/m? OB Status Postmenopausal Smoking Status Never BSA 2.01 m? INTAKE/OUTPUT: Intake/Output Summary (Last 24 hours) at 09/02/2024 0906Last data filed at 09/02/2024 0400 Gross per 24 hour Intake 800 ml Output 1655 ml Net -855 ml I/O last 3 completed shifts:In: 1852 (21.1 mL/kg) [P.O.:1550; IV Piggyback:302] Out: 2635 (30.1 mL/kg) [Urine:2110 (0.7 mL/kg/hr); Drains:15; Chest Tube:510] Weight: 87.7 kg PHYSICAL EXAM: General: Alert, cooperative, no distressHEENT: NC/AT, anicteric Cardiac: RRR, III/ HSM LLSB Lungs: Decreased BS Abdomen: Soft, NT/ND Extremities: No edema Neuro: Non-focal MEDICATION:acetaminophen, 1,000 mg, Oral, q8h DANTE albumin human, 25 g, Intravenous, Once aspirin EC, 81 mg, Oral, Daily brimonidine, 1 drop, Both Eyes, BID clopidogrel, 75 mg, Oral, Daily [START ON 09/03/2024] furosemide, 40 mg, Oral, Daily heparin, 5,000 Units, Subcutaneous, q8h insulin glargine, 30 Units, Subcutaneous, Daily insulin lispro, 7 Units, Subcutaneous, TID AC latanoprost, 1 drop, Both Eyes, Nightly methocarbamol, 750 mg, Oral, q8h pantoprazole, 40 mg, Oral, Daily before breakfast polyethylene glycol (PEG) 3350, 17 g, Oral, Daily [START ON 09/03/2024] potassium chloride, 20 mEq, Oral, Daily rosuvastatin, 20 mg, Oral, Nightly sennosides, 2 tablet, Oral, BID timolol, 1 drop, Both Eyes, BID LABS/IMAGING:Results from last 7 days Lab Units 09/02/24 0653 09/02/24 0517 09/01/24 1204 09/01/24 1020 09/01/24 0259 09/01/24 0258 08/31/24 1952 08/31/24 1816 SODIUM mEq/L -- 140 -- 140 -- 141 -- 139 POTASSIUM mEq/L -- 4.0 -- 4.6* -- 3.3* -- 4.1 CHLORIDE mEq/L -- 105 -- 106 -- 106 -- 107 CO2 mEq/L -- 26.9 -- 27.8 -- 28.5 -- 24.8 BUN mg/dL -- 18 -- 20 -- 19 -- 20 CREATININE mg/dL -- 0.64 -- 0.82 -- 0.72 -- 0.71 GLUCOSE mg/dL -- 78 -- 196* -- 57* -- 226* POC GLUCOSE mg/dL 79 -- < > -- < > -- < > -- CALCIUM mg/dL -- 8.5 -- 8.5 -- 8.7 -- 7.9* MAGNESIUM mg/dL -- 2.07 -- 2.36 -- 2.88* -- 2.05 PHOSPHORUS mg/dL -- -- -- 3.3 -- 3.1 -- 2.6 < > = values in this interval not displayed. Results from last 7 daysLab Units 08/26/24 1259 ALT U/L 8 AST U/L 51* ALBUMIN g/dL 3.0* ALK PHOS U/L 57 Results from last 7 daysLab Units 09/02/24 0517 09/01/24 0258 08/31/24 0332 08/30/24 0309 08/29/24 0327 08/28/24 2228 08/28/24 0336 08/27/24 0738 08/27/24 0328 WBC 10*3/uL 12.20* 10.65* 11.08* < > 13.73* -- 17.73* -- 13.37* HEMOGLOBIN g/dL 9.6* 10.5* 10.6* < > 10.3* < > 7.7* -- 8.5* POC HEMOGLOBIN -- -- -- -- -- -- -- < > -- HEMATOCRIT % 29.9* 32.9* 33.2* < > 32.7* < > 24.4* -- 26.8* POC HEMATOCRIT -- -- -- -- -- -- -- < > -- PLATELETS 10*3/uL 154* 150* 132* < > 87* -- 95* -- 143* INR -- -- -- -- 1.57* -- 1.82* -- 1.48* < > = values in this interval not displayed. No lab exists for component: "TROPTHS", "PROBNPNTERM" ECHOCARDIOGRAM:No results found for this or any previous visit. EKG:Results for orders placed or performed during the hospital encounter of 08/26/24 ECG 12 lead Collection Time: 08/26/24 1:15 PM Result Value Ref Range Ventricular Rate 75 BPM Atrial Rate 75 BPM AR Interval 176 ms QRS Duration 144 ms QT/QTc 460 ms QTc Calculation 513 ms P-Speed[place] 67 degrees R-Speed[place] 88 degrees T-Speedwell -36 degrees Patient Active Problem ListDiagnosis 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 Diabetes mellitus, type 2 (HCC) Primary hypertension Ischemic cardiomyopathy Acute blood loss anemia (ABLA) Macular degeneration Cardiogenic shock (HCC) ASSESSMENT & PLAN: S/P CABG - now off pressors - Per [facility] removing pacing wires and CT this AM - CXR: pulm vasc congestion and pulm edema improving, on daily lasix will change to PO - Continue DAPT with ASA/plavix and statin 2. HTN- controlled 3. Electrolyte imbalance- K: 4.0 - Will order daily KCL along with daily lasix 4. Diabetes- as per primary Leticia Elias MD [employer] Sales Manager [facility] Cosigned by Cisco Ruiz Jr., MD at 09/02/2024 12:53 PM RUG FRAME MOUNTER FRAME MOUNTER FRAME MOUNTER Associated attestation - Cisco Ruiz Jr., MD - 09/02/2024 12:53 PM RUG FRAME MOUNTER As above. Pt now on the telemetry floor. Hemodynamics post CABG stable. SOB much improved; will switch to po lasix. * Kimmie Chawla, OT - 09/02/2024 9:00 AM RUG FRAME MOUNTER Occupational Therapy Encounter Patient Name: Deepthi Moore Today's Date: 09/02/2024 Room number: [id number]* Time Entry Calculation: Start Time: (P) 0900 Stop Time: (P) 0905 Time Calculation (min): (P) 5 min Preferred Language: [place]ican Missed Treatment Time and Reason 09/02/24 0900 OT Last Visit OT Received On 09/02/24 Time Calculation Start Time 0900 Stop Time 0905 Time Calculation (min) 5 min General Amount of Missed Time (min) 1 Minutes Missed Treatment Reason Other (Comment) Pt just started breakfast. We will return later today if times permits. Pt able to verbally recall her breathing and BUE chair level exercises. Others Present spouse Kimmie Chawla, MICHAEL FRAME MOUNTER * Fredy Paulino MD - 09/01/2024 4:39 PM RUG FRAME MOUNTER [facility] Hospital[facility] Progress Note Subjective Patient seen and examined in CVICU. Reports mild surgical site discomfort. Otherwise no acute issues overnight, has been weaned off pressors- discussed with patient at bedside Orthostatic hypotensive blood pressure changes seems to be improving Plan to transfer out of ICU today Objective Last Recorded Vitals Blood pressure (!) 151/48, pulse 75, temperature 36.9 ?C (98.5 ?F), temperature source Oral, resp. rate (!) 32, height 1.651 m (5' 5"), weight 86.1 kg (189 lb 13.1 oz), SpO2 99%. Physical Exam: General: Awake and alert, in no acute distress HEENT: Normocephalic, atraumatic, neck is supple, no thyromegaly. CVS: S1S2 normal, RRR Lungs: Fair air entry anteriorly with mildly reduced breath sounds along the bases, chest tube in place Abdomen: Soft, NT, ND, normoactive bowel sounds Extremities: No significant pedal edema, SAMARA drain in place Neuro: AO x 3, no focal neuro deficit Psychiatric-mood and affect normal Results: Results from last 7 days Lab Units 09/01/24 0258 08/31/24 0332 08/30/24 0309 WBC 10*3/uL 10.65* 11.08* 10.94* HEMOGLOBIN g/dL 10.5* 10.6* 9.9* HEMATOCRIT % 32.9* 33.2* 31.4* PLATELETS 10*3/uL 150* 132* 96* Results from last 7 days Lab Units 09/01/24 1204 09/01/24 1020 09/01/24 0810 09/01/24 0259 09/01/24 0258 08/31/24 1952 08/31/24 1816 08/26/24 1358 08/26/24 1259 POC SODIUM -- -- -- -- -- -- -- < > -- SODIUM mEq/L -- 140 -- -- 141 -- 139 < > 146* POC POTASSIUM -- -- -- -- -- -- -- < > -- POTASSIUM mEq/L -- 4.6* -- -- 3.3* -- 4.1 < > 3.1* CHLORIDE mEq/L -- 106 -- -- 106 -- 107 < > 111* CO2 mEq/L -- 27.8 -- -- 28.5 -- 24.8 < > 24.6 POC CO2 (CALC) -- -- -- -- -- -- -- < > -- BUN mg/dL -- 20 -- -- 19 -- 20 < > 12 CREATININE mg/dL -- 0.82 -- -- 0.72 -- 0.71 < > 0.68 CALCIUM mg/dL -- 8.5 -- -- 8.7 -- 7.9* < > 8.2* PROTEIN TOTAL g/dL -- -- -- -- -- -- -- -- 5.7 BILIRUBIN TOTAL mg/dL -- -- -- -- -- -- -- -- 0.70 ALK PHOS U/L -- -- -- -- -- -- -- -- 57 ALT U/L -- -- -- -- -- -- -- -- 8 AST U/L -- -- -- -- -- -- -- -- 51* GLUCOSE mg/dL -- 196* -- -- 57* -- 226* < > 156* POC GLUCOSE mg/dL 173* -- 103* < > -- < > -- < > -- < > = values in this interval not displayed. Recent Images XR chest 1 view Result Date: 09/01/2024 EXAMINATION: XR CHEST 1 VIEW CLINICAL INFORMATION: Chest tube. COMPARISON: XR chest 08/31/2024 FINDINGS: The cardiac silhouette is moderately enlarged. Pulmonary vascular congestion is moderately improved from the comparison study. Left retrocardiac opacities are similar. A mediastinal drain and left-sided chest tube remains in place. There is a very trace left apical pneumothorax. A small layering left pleural effusion is also suspected. Median sternotomy wires and left atrial appendage clip are redemonstrated. The tip of a right neck central venous catheter terminates in the superior vena cava. 1. Trace left apical pneumothorax. A left-sided chest tube is noted. 2. Small left pleural effusion with left lower lobe atelectatic changes. 3. Improving pulmonary edema pattern. Electronically signed by: Wilmer Maria MD 09/01/2024 07:24 AM RUG FRAME MOUNTER Scheduled Meds acetaminophen, 1,000 mg, Oral, q8h DANTE albumin human, 25 g, Intravenous, Once aspirin EC, 81 mg, Oral, Daily brimonidine, 1 drop, Both Eyes, BID clopidogrel, 75 mg, Oral, Daily furosemide, 40 mg, Intravenous, Daily heparin, 5,000 Units, Subcutaneous, q8h insulin glargine, 30 Units, Subcutaneous, Daily insulin lispro, 7 Units, Subcutaneous, TID AC latanoprost, 1 drop, Both Eyes, Nightly methocarbamol, 750 mg, Oral, q8h pantoprazole, 40 mg, Oral, Daily before breakfast polyethylene glycol (PEG) 3350, 17 g, Oral, Daily potassium chloride, 20 mEq, Oral, Daily potassium chloride, 40 mEq, Oral, BID rosuvastatin, 20 mg, Oral, Nightly sennosides, 2 tablet, Oral, BID timolol, 1 drop, Both Eyes, BID PRN medications: dextrose, dextrose, docusate sodium, glucagon, hydrALAZINE, [Held by provider] HYDROmorphone, insulin lispro, lidocaine, melatonin, oxyCODONE, oxyCODONE, polyethylene glycol (PEG) 3350 Assessment & Plan 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 Had 2 episodes of decreased responsiveness on POD #1. Carotid ultrasound showed no hemodynamically significant stenosis, and echocardiogram shows ejection fraction of 45%. C/W current supportive care Post op management as per [facility]-chest tube management per surgery. Will continue to monitor Continues to remain hemodynamically stable off pressors Diabetes mellitus, type 2 (HCC) Will continue insulin per ICU protocol Primary hypertension Has been weaned off pressors Will consider initiation of low-dose beta-blockers when blood pressure feasible-noted improvement in orthostatic hypotension Ischemic cardiomyopathyC/w medical management Echo shows EF of 45%, aim to maintain euvolemic status Remains clinically and symptomatically stable Acute blood loss anemia (ABLA) Secondary to intra op blood loss. Will continue to monitor and transfuse as needed. Macular degenerationResume eye gtt as appropriate Cardiogenic shock (HCC)Resolved and stable Current Diet: Adult Diet Carbohydrate Controlled; Carb choice 1800 robert VTE Prophylaxis heparin - 5000 units/mLPlan to transfer out of ICU today. Discussed with guest room inspector service, and patient and her at bedside Fredy Paulino MD09/01/2024 This note was dictated with the use of [employer] speech recognition software. Please use best judgement when interpreting and excuse any drying and winding supervisor errors. If any questions in this regard, you can reach out to me at [phone]. FRAME MOUNTER * Beth Cisneros, PT - 09/01/2024 1:39 PM RUG FRAME MOUNTER Physical Therapy Treatment Patient Name: Deepthi Moore Today’s Date: 09/01/24 Room Number: [id number]/HVI4.CVICU* Patient's Preferred Language: [place]ican PT Assessment and Plan: Assessment Patient has made progress with functional mobility, especially amb distance. Limtiation with amb is SOB. Prognosis: Good Medical Staff Made Aware: Yes Plan (Last filed value by PT) Treatment Plan/Goals Established with Patient/Caregiver: Yes Treatment/Interventions: Bed mobility training, Functional activities, Gait training, Transfer training, Therapeutic exercises, Patient education PT Plan: Skilled PT PT Frequency: 3-4 times per week until discharge PT Recommended Transfer Status: Stand by assist AM-PAC Basic Mobility Turning in bed without bedrails: A Little Lying on back to sitting on edge of flat bed: A Lot Bed to chair: A Little Standing up from chair: A Little Walk in room: A Little Climbing 3-5 stairs: A Lot Mobility Inpatient Raw Score: 16 -[facility] Goal: 5 [facility] Highest Level of Mobility (-HLM) Scale Highest Level of Mobility Performed (-HLM): Walked 25 feet or more (i.e. walked outside of room) Subjective: Patient agreed to work with PT. Current Problem: This is a 68 y.o. female who is s/p CABG Pain: Pain Assessment Pain Assessment: DVPRS Pain Score: 3 Pain Rating Scale (DVPRS): Sometimes distracts me Pain Type: Surgical pain Vital Signs: WNL Lines and Drains: chest tube, 2 L 02, cafeteria monitor Objective: Precautions: LE Weight Bearing Status: FWB Isolation Status: No active isolations Activity Tolerance: Early Mobility/Exercise Safety Screen: Proceed with mobilization - No exclusion criteria met Cognition: Overall Cognitive Status: Within Functional Limits Behavior/Cognition: Alert, Cooperative, Pleasant mood Orientation Level: Oriented X4 Treatments: Therapeutic Activity Time Entry: 15 Therapeutic Activity 1: Patient resting in bed. BP in supine 116/69, sitting EOB 142/62 and standing at bed side 120/67. These blood pressures were WNL for amb.Patient assisted into sitting at Mod A needing help with upper and lower body to transition into sitting from supine. She stood using Rollator and proceeded to amb once blood pressure readings complete. Post amb assisted to recliner in room, all needs placed within reach. Bed Mobility: Bed Mobility Bed Mobility: Yes Bed Mobility 1 Level of Assistance 1: Partial/Mod assistance Bed Mobility To/From: Supine to sit on EOB Assistive Devices And Adaptive Equipments: Head of bed elevated Transfers: Transfers Transfer: Yes Transfer 1 Technique 1: Via walking Level of Assistance 1: Partial/Mod assistance Transfer To/From: Chair, Bed Assistive Devices And Adaptive Equipments: Walker, four-wheeled Gait Training: Gait Training Time Entry: 12 Gait Training Activity 1 Distance (enter in feet): ~155 feet Gait Training Activity 1: Indoor surface Assistive Devices And Adaptive Equipments: Walker, four-wheeled Level of Assistance 1: Partial/Mod assistance (+ PT tech for WC follow for safety) Gait Training Activity 1 Comment: Slow and steady amb. No issues with dizziness, loss of balance. She was SOB toward end of amb. 02 titrated from 2 L to 3, 02 sats showing low 80's to high 70's but waveform was poor. Patient asked to be wheeled back via WC. She was taken in WC, assisted to recliner, 02 WNL at that time with good wave form. RN notified. Outcome Measures: 09/01/24 0915Borg RPE Scale Lulu RPE Scale - How Strenuous and Tiring The Work Feels 14 Patient EducationEducation Documentation Mobility, taught by Beth Cisneros PT at 09/01/2024 1:37 PM. Learner: Patient Readiness: Eager Method: Explanation Response: Verbalizes Understanding Education CommentsNo comments found. GoalEncounter Goals Encounter Goals (Active) Patient will ambulate >400 feet distance using no device with no assistance Independent (Progressing) Start: 08/30/24 Expected End: 09/27/24 Patient will perform chair to and from bed transfer with no assistance Independent (Progressing) Start: 08/30/24 Expected End: 09/27/24 Patient will perform supine to sit /sit to supine on bed with no assistance Mod I demonstrating control (Progressing) Start: 08/30/24 Expected End: 09/27/24 Post Therapy Checklist - in chair, call gonzalez within reach, and bed/chair alarmin place Time Calculation:Start Time: 914 Stop Time: 941 Time Calculation (min): 27 min PT Recreation Leader Used: Zack Gonzales Treatment Note: If this is the last documented treatment, then it will signify discharge from acute care prior to discharge from the therapy service and will serve as the discharge summary. Beth Cisneros PT FRAME MOUNTER * Maurice Wesley MD - 09/01/2024 10:31 AM RUG FRAME MOUNTER [place] Critical Care Note / History Of Present Illness: Deepthi Moore is a 68 y.o. female presenting with a history of CAD, diabetes mellitus, hypertension with associated hypertensive heart disease, and peripheral arterial disease who was found to have significant multivessel CAD on cardiac workup and presents to the ICU after undergoing CABG procedure. Daily Summary: 08/26: S/P CAB x 4 on vent support and will work on extubating. 08/27: Patient extubated yesterday without incident; gets a little lightheaded when standing up; no acute hemodynamic issues reported overnight. Yesterday became hypotensive around 7 PM and pressor needs were escalated and became more responsive. Epi 3mcg and NE 6mcg. U/O 350ml. Getting Albumin 5% 500ml. Once again, this morning, patient became unresponsive when they were setting her up. 08/28: Epi 2 + NE at 1mcg. In the setting of her repeated vasovagal events, will obtain carotid artery ultrasound and discussed with cardiology regarding possibly repeating echocardiogram to assess for any pericardial effusion as a cause for her symptoms. 08/29: Was off all drips, but upon being turned her blood pressure dropped, and thus is now on 1 mcg/min of norepinephrine. 500 mL of 5% albumin this morning for orthostasis. PT and OT ordered. PM update: Had an episode of shortness of breath when she was turned this afternoon, secondary to shortness of breath her blood pressure got as high as systolic of 180s even after norepinephrine d/c'd. Nicardipine was ordered, but never needed to be started as this spontaneously resolved. Stat transthoracic echo ordered in case there is a pericardial effusion building and contributing to this. Dr. Ruiz and Dr. Purvis updated and aware - per Dr. Lucas, hold off on starting any beta blockers. 08/30: 40 mg Lasix this morning, produced about 800 mL of urine diet 6 as needed. Did not work with physical therapy due to concerns of postural hypotension, per Dr. Purvis's recommendation was started on fludrocortisone yesterday in case her diabetes was causing her orthostatic hypotension. Otherwise off all vasoactive infusions. On nasal cannula, continue weaning off the oxygen for goal SpO2 > 92%. Motivated to try and walk tomorrow. 08/31:-Episode of drop in blood pressure when she stood up today, though she felt completely asymptomatic. Does not appear that fludrocortisone is helping, will DC it. I suspect she has some degree of orthostatic hypotension at baseline, but given that he was totally atraumatic today when she got up, will discontinue the arterial line and just follow via the noninvasive blood pressure cuff. Twice daily Lasix started by CT surgery. Escalate bowel regimen today. DAPT per cardiology/CTS. PPI given DAPT. 09/01: Doing well. Ambulated today. Transfer to floor. Labs, imaging reviewed. Results from last 7 days Lab Units 09/01/24 0810 09/01/24 0259 09/01/24 0258 08/26/24 1358 08/26/24 1259 POC SODIUM -- -- -- < > -- SODIUM mEq/L -- -- 141 < > 146* POC POTASSIUM -- -- -- < > -- POTASSIUM mEq/L -- -- 3.3* < > 3.1* CHLORIDE mEq/L -- -- 106 < > 111* CO2 mEq/L -- -- 28.5 < > 24.6 POC CO2 (CALC) -- -- -- < > -- BUN mg/dL -- -- 19 < > 12 CREATININE mg/dL -- -- 0.72 < > 0.68 CALCIUM mg/dL -- -- 8.7 < > 8.2* PROTEIN TOTAL g/dL -- -- -- -- 5.7 BILIRUBIN TOTAL mg/dL -- -- -- -- 0.70 ALK PHOS U/L -- -- -- -- 57 ALT U/L -- -- -- -- 8 AST U/L -- -- -- -- 51* GLUCOSE mg/dL -- -- 57* < > 156* POC GLUCOSE mg/dL 103* < > -- < > -- < > = values in this interval not displayed. Results from last 7 days Lab Units 09/01/24 0258 08/31/24 0332 08/30/24 0309 WBC 10*3/uL 10.65* 11.08* 10.94* HEMOGLOBIN g/dL 10.5* 10.6* 9.9* HEMATOCRIT % 32.9* 33.2* 31.4* PLATELETS 10*3/uL 150* 132* 96* Physical Exam: Vitals: 09/01/24 0700 09/01/24 0800 09/01/24 0900 09/01/24 1000 BP: 114/67 (!) 144/116 (!) 143/93 (!) 145/46 Pulse: 59 63 67 74 Resp: 19 (!) 31 (!) 43 (!) 23 Temp: 36.7 ?C (98.1 ?F) SpO2: 100% 100% 100% 98% Gen'l: Patient sitting up in chair, in good spirits H&N: No scleral icterus or edema. No obvious JVD. Neuro: AAOx3, conversant Card: No rubs or gallops. S1 and S2 present and without overt murmurs Pulm: Clear to auscultation B/L. No wheezes / rales / rhonchi. Abd: Soft, NT, ND. Bowel sounds present. Ext: No edema or lesions noted. PP+ Assessment and Plan: Surg: Status post CABG x 4 Routine postoperative care including extubation per protocol Monitor chest tube output Cardiac and CV surgical follow-up Neuro: Postoperative pain control Syncopal episodes Per the [facility] Will obtain bilateral carotid arterial ultrasounds to assess for any concerning stenosis Discussed with cardiology regarding possibly repeating an echocardiogram Pulm: Postoperative ventilator support, resolved Goal SpO2 greater than or equal to 92%, titrate supplemental oxygen accordingly CV: History of hypertension; history of multivessel CAD now status post CABG History of ischemic cardiomyopathy with severe diastolic dysfunction Chronic congestive heart failure Orthostatic hypotension Meds Per the [facility] Goal MAP greater than equal to 65, titrate vasopressors accordingly Hold beta-sonia given borderline hypotension, concern for postural hypotension Statin GI: No acute issues Oral diet when appropriate Bowel regimen Renal: No acute issues Monitor urinary output and daily labs ID: No acute issues Antibiotics per postoperative protocols Heme: No acute issues Daily labs dapt Endo: DM, present on admission Trend fingersticks per postoperative protocol Sliding scale insulin Glargine Mealtime insulin MSK: No acute issues PT/OT GI Prophylaxis: Per the [facility] DVT Prophylaxis: Per the [facility] FRAME MOUNTER * Kimmie Chawla OT - 09/01/2024 9:55 AM RUG FRAME MOUNTER Occupational Therapy Treatment Deepthi Moore 1955 Room [facility].CVICU.[facility] ER4.CVICU* Assessment: Pt was seen for OT treatment focus on therapeutic exercises,, functional strength and ADL's. Pt present with good steady progress towards OT goals. She cont to demo decrease activity tolerance , balance and functional strength. Overall, pt mod to min for ADL's and transfers. She will cont to benefit from OT skilled services. OT Assessment Results: Impaired ADL status, Impaired upper extremity strength, Impaired endurance, Impaired fine motor control, Impaired functional mobility, Impaired right upper extremity, Impaired left upper extremity Prognosis: Good Barriers to Discharge: Complicated medical history Evaluation/Treatment Tolerance: Patient tolerated treatment well Medical Staff Made Aware: Yes Strengths: Ability to acquire knowledge Plan: Treatment Plan/Goals Established with Patient/Caregiver: Yes Treatment Interventions: ADL retraining, Endurance training, Functional transfer training, UE strengthening/ROM OT Planned Treatments: Activities of Daily Living, Balance training, Edema managment, Energy conservation training, Manual therapy, Therapeutic activities, Therapeutic exercises OT Plan: Skilled OT OT Frequency: 2-3 times per week until discharge Equipment Recommended: Shower bath chair AM-PAC Daily Activity: Putting on and taking off regular lower body clothing: A Lot Bathing (including washing, rinsing, drying): A Lot Toileting, which includes using toilet, bedpan or urinal: A Little Putting on and taking off regular upper body clothing: A Little Taking care of personal grooming such as brushing teeth: None Eating Meals: None AM-PAC Daily Activity Raw Score: 18 [facility] Highest Level of Mobility (JH-HLM) ScaleHighest Level of Mobility Performed (JH-HLM): Transferred to chair/commode Preferred Language: [place] Rican SubjectivePt agreeable Treatment: 09/01/24 0955OT Last Visit OT Received On 09/01/24 Time Calculation Start Time 0955 Stop Time 1021 Time Calculation (min) 26 min Precautions UE Weight Bearing Status FWB LE Weight Bearing Status FWB Medical Precautions Standard,Fall Post-Surgical Precautions Sternal Pain Assessment Pain Assessment DVPRS Pain Score 0 Pain Rating Scale (DVPRS) 0 ADL Self Care/Home Management (ADL's) Time Entry 10 Therapeutic Procedures Time Entry Therapeutic Activity Time Entry 16 Therapeutic Activity Therapeutic Activity 1 Breathing exercises (IS, recovery breathing) Therapeutic Activity 2 BUE AROM, 3 set of 10 Therapeutic Activity 3 BLE AROM, 3 set of 10 AM-PAC Daily Activity Inpatient Putting on and taking off regular lower body clothing 2 Bathing (including washing, rinsing, drying) 2 Toileting, which includes using toilet, bedpan or urinal 3 Putting on and taking off regular upper body clothing 3 Taking care of personal grooming such as brushing teeth 4 Eating Meals 4 AM-PAC Daily Activity Raw Score 18 OT Assessment OT Assessment Results Impaired ADL status;Impaired upper extremity strength;Impaired endurance;Impaired fine motor control;Impaired functional mobility;Impaired right upper extremity;Impaired left upper extremity Prognosis Good Barriers to Discharge Complicated medical history Evaluation/Treatment Tolerance Patient tolerated treatment well Medical Staff Made Aware Yes Strengths Ability to acquire knowledge OT Plan Treatment Plan/Goals Established with Patient/Caregiver Yes Treatment Interventions ADL retraining;Endurance training;Functional transfer training;UE strengthening/ROM OT Plan Skilled OT OT Frequency 2-3 times per week until discharge Equipment Recommended Shower bath chair OT Planned Treatments Activities of Daily Living;Balance training;Edema management;Energy conservation training;Manual therapy;Therapeutic activities;Therapeutic exercises OT Duration Discharge Mobility Highest Level of Mobility Performed (JH-HLM) 4 When therapist arrived pt walking in the cade with physical therapist. Once PT finished her education OT took over. Pt's VSS but she reported fatigue. Pt demo min A to simulated BSC transfer. During rest break pt educated on today's goals. OT offered to come back later but pt ok to cont. >She participated in recovery breathing exercises and education focus on benefits of exercises and IS. >Pt reported she is well aware of the importance of exercises post op, during ind research. >She then participated in oral and facial hygiene with the need of extra time. >Pt educated and SBA for chair level exercises focus on BUE/BLE AROM in all joints of movement. >Pt educated on rehab progression and all questions answered. Pt left UIC at end of session, all needs in reach, alarm intact. Education DocumentationNo documentation found. Education Comments No comments found. Encounter Goals Encounter Goals (Active) LTG - Patient will demonstrate Intervention to enhance balance for safe completion of daily activities SPV Start: 08/30/24 Expected End: 09/09/24 LTG - Patient will demonstrate use of appropriate intervention for safe dressing of upper extremities mod I Start: 08/30/24 Expected End: 09/09/24 LTG - Patient will demonstrate safety requirements appropriate to situation/environment mod I Start: 08/30/24 Expected End: 09/09/24 Treatment Note: If this is the last documented treatment, then it will signify discharge from acute care prior to discharge from the therapy service and will serve as the discharge summary. Kimmie Chawla, MICHAEL FRAME MOUNTER * Cisco Ruiz Jr., MD - 09/01/2024 8:49 AM RUG FRAME MOUNTER Images from the original note were not included. Cardiology Progress Note SUBJECTIVE: No acute changes.Pt states SOB is much better CXR improving Objective VITALS:Visit Vitals BP 114/67 Pulse 59 Temp 36.7 ?C (98.1 ?F) (Oral) Resp 19 Ht 1.651 m (5' 5") Wt 86.1 kg (189 lb 13.1 oz) SpO2 100% BMI 31.59 kg/m? OB Status Postmenopausal Smoking Status Never BSA 1.99 m? INTAKE/OUTPUT: Intake/Output Summary (Last 24 hours) at 09/01/2024 0849Last data filed at 09/01/2024 0622 Gross per 24 hour Intake 1302 ml Output 2235 ml Net -933 ml I/O last 3 completed shifts:In: 1552 (18 mL/kg) [P.O.:1200; IV Piggyback:352] Out: 3080 (35.8 mL/kg) [Urine:1935 (0.6 mL/kg/hr); Drains:45; Chest Tube:1100] Weight: 86.1 kg PHYSICAL EXAM: General: Alert, cooperative, no distressHEENT: NC/AT, anicteric Cardiac: RRR, III/ HSM LLSB Lungs: Decreased BS Abdomen: Soft, NT/ND Extremities: No edema Neuro: Non-focal MEDICATION:acetaminophen, 1,000 mg, Oral, q8h DANTE albumin human, 25 g, Intravenous, Once aspirin EC, 81 mg, Oral, Daily brimonidine, 1 drop, Both Eyes, BID clopidogrel, 75 mg, Oral, Daily furosemide, 40 mg, Intravenous, Daily heparin, 5,000 Units, Subcutaneous, q8h insulin glargine, 30 Units, Subcutaneous, Daily insulin lispro, 7 Units, Subcutaneous, TID AC latanoprost, 1 drop, Both Eyes, Nightly methocarbamol, 750 mg, Oral, q8h pantoprazole, 40 mg, Oral, Daily before breakfast polyethylene glycol (PEG) 3350, 17 g, Oral, Daily potassium chloride, 20 mEq, Oral, Daily rosuvastatin, 20 mg, Oral, Nightly sennosides, 2 tablet, Oral, BID timolol, 1 drop, Both Eyes, BID LABS/IMAGING:Results from last 7 days Lab Units 09/01/24 0810 09/01/24 0259 09/01/24 0258 08/31/24195108/31/24 1816 08/31/24 0335 08/31/24 033 SODIUM mEq/L -- -- 141 -- 139 -- 139 POTASSIUM mEq/L -- -- 3.3* -- 4.1 -- 3.5 CHLORIDE mEq/L -- -- 106 -- 107 -- 105 CO2 mEq/L -- -- 28.5 -- 24.8 -- 25.9 BUN mg/dL -- -- 19 -- 20 -- 18 CREATININE mg/dL -- -- 0.72 -- 0.71 -- 0.65 GLUCOSE mg/dL -- -- 57* -- 226* -- 113* POC GLUCOSE mg/dL 103* < > -- < > -- < > -- CALCIUM mg/dL -- -- 8.7 -- 7.9* -- 8.2* MAGNESIUM mg/dL -- -- 2.88* -- 2.05 -- 2.04 PHOSPHORUS mg/dL -- -- 3.1 -- 2.6 -- 2.6 < > = values in this interval not displayed. Results from last 7 daysLab Units 08/26/24 1259 ALT U/L 8 AST U/L 51* ALBUMIN g/dL 3.0* ALK PHOS U/L 57 Results from last 7 daysLab Units 09/01/24 0258 08/31/24 0332 08/30/24 0309 08/29/247 08/28/24222708/28/24 0336 08/27/24 0738 08/27/24 032 WBC 10*3/uL 10.65* 11.08* 10.94* 13.73* -- 17.73* -- 13.37* HEMOGLOBIN g/dL 10.5* 10.6* 9.9* 10.3* < > 7.7* -- 8.5* POC HEMOGLOBIN -- -- -- -- -- -- < > -- HEMATOCRIT % 32.9* 33.2* 31.4* 32.7* < > 24.4* -- 26.8* POC HEMATOCRIT -- -- -- -- -- -- < > -- PLATELETS 10*3/uL 150* 132* 96* 87* -- 95* -- 143* INR -- -- -- 1.57* -- 1.82* -- 1.48* < > = values in this interval not displayed. No lab exists for component: "TROPTHS", "PROBNPNTERM" ECHOCARDIOGRAM:No results found for this or any previous visit. 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 HTN- controlled 3. Electrolyte imbalance- K: 3.3, on daily lasix and KCL - Will give additional KCL 4. Diabetes- as per primary Leticia Elias MD [employer] Sales Manager [facility] As above. SOB is much improved after starting daily lasix. Weight is down 6 kg from peak. BP controlled. FRAME MOUNTER FRAME MOUNTER FRAME MOUNTER * Fredy Paulino MD - 08/31/2024 1:37 PM RUG FRAME MOUNTER [facility] Hospitalist Progress Note Subjective Patient seen and examined in CVICU. Reports mild surgical site discomfort. Noted orthostatic bp changes, otherwise weaned off pressors- discussed with patient at bedside Otherwise no acute issues overnight. Complaining of mild abdominal discomfort otherwise no acute issues overnight Objective Last Recorded Vitals Blood pressure 103/61, pulse 64, temperature 36.8 ?C (98.3 ?F), temperature source Oral, resp. rate (!) 27, height 1.651 m (5' 5"), weight 92 kg (202 lb 13.2 oz), SpO2 100%. Physical Exam: General: Awake and alert, in no acute distress HEENT: Normocephalic, atraumatic, neck is supple, no thyromegaly. CVS: S1S2 normal, RRR Lungs: Fair air entry anteriorly with mildly reduced breath sounds along the bases, chest tube in place Abdomen: Soft, NT, ND, normoactive bowel sounds, mildly distended Extremities: No significant pedal edema Neuro: AO x 3, no focal neuro deficit Results: Results from last 7 days Lab Units 08/31/24 0332 08/30/24 03008/29/24 0327 WBC 10*3/uL 11.08* 10.94* 13.73* HEMOGLOBIN g/dL 10.6* 9.9* 10.3* HEMATOCRIT % 33.2* 31.4* 32.7* PLATELETS 10*3/uL 132* 96* 87* Results from last 7 days Lab Units 08/31/24 1140 08/31/24 0806 08/31/24 0335 08/31/24 0331 08/30/24 0722 08/30/24 0309 08/29/24 0448 08/29/24 0327 08/26/24 1358 08/26/24 1259 POC SODIUM -- -- -- -- -- -- -- -- < > -- SODIUM mEq/L -- -- -- 139 -- 139 -- 139 < > 146* POC POTASSIUM -- -- -- -- -- -- -- -- < > -- POTASSIUM mEq/L -- -- -- 3.5 -- 3.9 -- 4.0 < > 3.1* CHLORIDE mEq/L -- -- -- 105 -- 105 -- 106 < > 111* CO2 mEq/L -- -- -- 25.9 -- 24.0 -- 25.0 < > 24.6 POC CO2 (CALC) -- -- -- -- -- -- -- -- < > -- BUN mg/dL -- -- -- 18 -- 20 -- 19 < > 12 CREATININE mg/dL -- -- -- 0.65 -- 0.72 -- 0.75 < > 0.68 CALCIUM mg/dL -- -- -- 8.2* -- 8.0* -- 8.7 < > 8.2* PROTEIN TOTAL g/dL -- -- -- -- -- -- -- -- -- 5.7 BILIRUBIN TOTAL mg/dL -- -- -- -- -- -- -- -- -- 0.70 ALK PHOS U/L -- -- -- -- -- -- -- -- -- 57 ALT U/L -- -- -- -- -- -- -- -- -- 8 AST U/L -- -- -- -- -- -- -- -- -- 51* GLUCOSE mg/dL -- -- -- 113* -- 111* -- 153* < > 156* POC GLUCOSE mg/dL 130* 104* 112* -- < > -- < > -- < > -- < > = values in this interval not displayed. Recent Images XR chest 1 view Result Date: 08/31/2024 Portable AP chest, 1 view Location Code: H33 CLINICAL HISTORY: chest tubes COMPARISON: 08/30/2024 COMMENT: Tubes and support lines are stable. Mild to moderate central congestion remains. Diffuse bilateral airspace disease with likely small effusions appear stable. No pneumothorax. The cardiomediastinal silhouette is unchanged with prior sternotomy. There is no acute osseous abnormality. No significant interval change. Electronically signed by: Clive Chong MD 08/31/2024 08:22 AM [facility] Scheduled Meds acetaminophen, 1,000 mg, Oral, q8h DANTE albumin human, 25 g, Intravenous, Once aspirin EC, 81 mg, Oral, Daily brimonidine, 1 drop, Both Eyes, BID clopidogrel, 75 mg, Oral, Daily furosemide, 40 mg, Intravenous, Daily heparin, 5,000 Units, Subcutaneous, q8h hydrALAZINE, 10 mg, Oral, q8h insulin glargine, 30 Units, Subcutaneous, Daily insulin lispro, 7 Units, Subcutaneous, TID AC latanoprost, 1 drop, Both Eyes, Nightly methocarbamol, 750 mg, Oral, q8h pantoprazole, 40 mg, Oral, Daily before breakfast polyethylene glycol (PEG) 3350, 17 g, Oral, Daily potassium chloride, 20 mEq, Oral, Daily rosuvastatin, 20 mg, Oral, Nightly sennosides, 2 tablet, Oral, BID timolol, 1 drop, Both Eyes, BID PRN medications: calcium gluconate, dextrose, dextrose, docusate sodium, glucagon, [Held by provider] HYDROmorphone, insulin lispro, lidocaine, magnesium sulfate, melatonin, oxyCODONE, oxyCODONE, polyethylene glycol (PEG) 3350, potassium & sodium phosphates OR potassium & sodium phosphates, potassium chloride OR potassium chloride OR potassium chloride OR Potassium chloride, sodium phosphates 45 mmol in sodium chloride 0.9 % 100 mL IVPB Assessment & Plan 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 Had 2 episodes of decreased responsiveness on POD #1. Carotid ultrasound showed no hemodynamically significant stenosis, and echocardiogram shows ejection fraction of 45%. Post op management as per [facility]-chest tube management per surgery. Will continue to monitor Otherwise remains hemodynamically stable off pressors Diabetes mellitus, type 2 (HCC) Will continue insulin per ICU protocol Primary hypertension Has been weaned off pressors Will consider initiation of low-dose beta-blockers when blood pressure feasible- still with orthostatic changes- plan to monitor Ischemic cardiomyopathyC/w medical management Echo shows EF of 45%, aim to maintain euvolemic status Remains clinically and symptomatically stable Acute blood loss anemia (ABLA) Secondary to intra op blood loss. Will continue to monitor and transfuse as needed. Macular degenerationResume eye gtt as appropriate Cardiogenic shock (HCC) Current Diet: Adult Diet Carbohydrate Controlled; Carb choice 1800 robert VTE Prophylaxis heparin - 5000 units/mLPlan to transfer out of ICU later today if stable. Discussed with guest room inspector service Fredy Paulino MD08/31/2024 This note was dictated with the use of [employer] speech recognition software. Please use best judgement when interpreting and excuse any drying and winding supervisor errors. If any questions in this regard, you can reach out to me at [phone]. FRAME MOUNTER * Maurice Wesley MD - 08/31/2024 12:27 PM RUG FRAME MOUNTER [place] Critical Care Note / History Of Present Illness: Deepthi Moore is a 68 y.o. female presenting with a history of CAD, diabetes mellitus, hypertension with associated hypertensive heart disease, and peripheral arterial disease who was found to have significant multivessel CAD on cardiac workup and presents to the ICU after undergoing CABG procedure. Daily Summary: 08/26: S/P CAB x 4 on vent support and will work on extubating. 08/27: Patient extubated yesterday without incident; gets a little lightheaded when standing up; no acute hemodynamic issues reported overnight. Yesterday became hypotensive around 7 PM and pressor needs were escalated and became more responsive. Epi 3mcg and NE 6mcg. U/O 350ml. Getting Albumin 5% 500ml. Once again, this morning, patient became unresponsive when they were setting her up. 08/28: Epi 2 + NE at 1mcg. In the setting of her repeated vasovagal events, will obtain carotid artery ultrasound and discussed with cardiology regarding possibly repeating echocardiogram to assess for any pericardial effusion as a cause for her symptoms. 08/29: Was off all drips, but upon being turned her blood pressure dropped, and thus is now on 1 mcg/min of norepinephrine. 500 mL of 5% albumin this morning for orthostasis. PT and OT ordered. PM update: Had an episode of shortness of breath when she was turned this afternoon, secondary to shortness of breath her blood pressure got as high as systolic of 180s even after norepinephrine d/c'd. Nicardipine was ordered, but never needed to be started as this spontaneously resolved. Stat transthoracic echo ordered in case there is a pericardial effusion building and contributing to this. Dr. Ruiz and Dr. Purvis updated and aware - per Dr. Lucas, hold off on starting any beta blockers. 08/30: 40 mg Lasix this morning, produced about 800 mL of urine diet 6 as needed. Did not work with physical therapy due to concerns of postural hypotension, per Dr. Purvis's recommendation was started on fludrocortisone yesterday in case her diabetes was causing her orthostatic hypotension. Otherwise off all vasoactive infusions. On nasal cannula, continue weaning off the oxygen for goal SpO2 > 92%. Motivated to try and walk tomorrow. 08/31:-Episode of drop in blood pressure when she stood up today, though she felt completely asymptomatic. Does not appear that fludrocortisone is helping, will DC it. I suspect she has some degree of orthostatic hypotension at baseline, but given that he was totally atraumatic today when she got up, will discontinue the arterial line and just follow via the noninvasive blood pressure cuff. Twice daily Lasix started by CT surgery. Escalate bowel regimen today. DAPT per cardiology/CTS. PPI given DAPT. Labs, imaging reviewed. Results from last 7 days Lab Units 08/31/24 1140 08/31/24 0335 08/31/24 0331 08/26/24 1358 08/26/24 1259 POC SODIUM -- -- -- < > -- SODIUM mEq/L -- -- 139 < > 146* POC POTASSIUM -- -- -- < > -- POTASSIUM mEq/L -- -- 3.5 < > 3.1* CHLORIDE mEq/L -- -- 105 < > 111* CO2 mEq/L -- -- 25.9 < > 24.6 POC CO2 (CALC) -- -- -- < > -- BUN mg/dL -- -- 18 < > 12 CREATININE mg/dL -- -- 0.65 < > 0.68 CALCIUM mg/dL -- -- 8.2* < > 8.2* PROTEIN TOTAL g/dL -- -- -- -- 5.7 BILIRUBIN TOTAL mg/dL -- -- -- -- 0.70 ALK PHOS U/L -- -- -- -- 57 ALT U/L -- -- -- -- 8 AST U/L -- -- -- -- 51* GLUCOSE mg/dL -- -- 113* < > 156* POC GLUCOSE mg/dL 130* < > -- < > -- < > = values in this interval not displayed. Results from last 7 days Lab Units 08/31/24 0332 08/30/24 0309 08/29/24 0327 WBC 10*3/uL 11.08* 10.94* 13.73* HEMOGLOBIN g/dL 10.6* 9.9* 10.3* HEMATOCRIT % 33.2* 31.4* 32.7* PLATELETS 10*3/uL 132* 96* 87* Physical Exam: Vitals: 08/31/24 0900 08/31/24 1000 08/31/24 1100 08/31/24 1130 BP: 106/65 146/69 (!) 100/48 Pulse: 63 67 64 Resp: (!) 24 (!) 23 21 Temp: 36.8 ?C (98.3 ?F) SpO2: 99% 100% 100% ROS: Unable to obtain Gen'l: Patient sitting up in chair, in good spirits H&N: No scleral icterus or edema. No obvious JVD. Neuro: AAOx3 Card: No rubs or gallops. S1 and S2 present and without overt murmurs. Pacer set at VVI backup 50. Pulm: Clear to auscultation B/L. No wheezes / rales / rhonchi. Abd: Soft, NT, ND. Bowel sounds present. Ext: No edema or lesions noted. PP+ Assessment and Plan: Surg: Status post CABG x 4 Routine postoperative care including extubation per protocol Monitor chest tube output Cardiac and CV surgical follow-up Neuro: Postoperative pain control Syncopal episodes Per the MAR Will obtain bilateral carotid arterial ultrasounds to assess for any concerning stenosis Discussed with cardiology regarding possibly repeating an echocardiogram Pulm: Postoperative ventilator support, resolved Goal SpO2 greater than or equal to 92%, titrate supplemental oxygen accordingly CV: History of hypertension; history of multivessel CAD now status post CABG History of ischemic cardiomyopathy with severe diastolic dysfunction Chronic congestive heart failure Orthostatic hypotension Meds Per the MAR Goal MAP greater than equal to 65, titrate vasopressors accordingly Hold beta-sonia given borderline hypotension Statin GI: No acute issues Oral diet when appropriate Bowel regimen Renal: No acute issues Monitor urinary output and daily labs ID: No acute issues Antibiotics per postoperative protocols Heme: No acute issues Daily labs dapt Endo: No acute issues Trend fingersticks per postoperative protocol MSK: No acute issues PT/OT GI Prophylaxis: Per the MAR DVT Prophylaxis: Per the MAR FRAME MOUNTER * Sury Griffith - 08/31/2024 11:00 AM RUG FRAME MOUNTER Transfer Coordinator Visit Fr. Brooke gave the patient Sacrament of the Sick FRAME MOUNTER * Oswaldo Clifton, PT - 08/31/2024 10:01 AM RUG FRAME MOUNTER Physical Therapy Treatment Patient Name: Deepthi Moore Today’s Date: 08/31/24 Room Number: [id number]* Patient's Preferred Language: [place] PT Assessment and Plan: Assessment Pt's BP monitored throughout session, appears to be mildly orthostatic requiring increased time to acclimate positional changes and VCs for AROM (ankle pumps and bicep curls) to assist/maintain BP; RN present throughout session, pt stable upon exit Evaluation/Treatment Tolerance: Patient tolerated treatment well Prognosis: Good Strengths: Attitude of self, Support and attitude of living partners Barriers to Discharge: Medical diagnosis, Severity of deficits Medical Staff Made Aware: Yes Plan (Last filed value by PT) Treatment Plan/Goals Established with Patient/Caregiver: Yes Treatment/Interventions: Balance training, Bed mobility training, Functional activities, Gait training, Neuromuscular re-education, Pain management, Patient education, Positioning, Posture/Body mechanics baring, Therapeutic exercises, Transfer training PT Plan: Skilled PT PT Frequency: 3-4 times per week until discharge PT Recommended Transfer Status: Stand by assist AM-PAC Basic Mobility Turning in bed without bedrails: A Little Lying on back to sitting on edge of flat bed: A Little Bed to chair: A Little Standing up from chair: A Little Walk in room: A Lot Climbing 3-5 stairs: A Lot Mobility Inpatient Raw Score: 16 -HLM Goal: 5 [facility] Highest Level of Mobility (JH-HLM) Scale Highest Level of Mobility Performed (JH-HLM): Transferred to chair/commode Subjective: Pt agreeable to PT, discussed FORMCC c RN and ok'd session, pt supine in bed on arrival in [facility] Current Problem: This is a 68 y.o. female who is admitted to 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 [I25.10] Pain: Pain Assessment Pain Assessment: DVPRS Pain Score: 0 Pain Rating Scale (DVPRS): No pain Pain: (Post Therapy Score) 0/10 Vital Signs: monitored throughout session; mildly low BP, RN present in room Lines and Drains: refer to LDA Health Conditions: Pain Interference with Therapy Activities: Rarely or not at all Objective: Precautions: Medical Precautions: fall, DVT, standard Post-Surgical Precautions: sternal Isolation Status: No active isolations Activity Tolerance: Endurance: Tolerates less than 10 min exercise with changes in vital signs Sitting Balance: Supports self independently with both upper extremities Early Mobility/Exercise Safety Screen: Proceed with mobilization - No exclusion criteria met Cognition: Overall Cognitive Status: Within Functional Limits Behavior/Cognition: Alert, Cooperative, Pleasant mood Orientation Level: Oriented X4 Treatments: Therapeutic Activity Time Entry: 29 Therapeutic Activity 1: bed mobility Therapeutic Activity 2: sit<>stand, pvt Bed Mobility: Bed Mobility Bed Mobility: Yes Bed Mobility 1 Level of Assistance 1: Partial/Mod assistance Bed Mobility Comments 1: assist for trunk elevation and seated balance Bed Mobility To/From: Supine to sit on EOB Assistive Devices And Adaptive Equipments: Head of bed elevated (>45*) Transfers: Transfers Transfer: Yes Transfer 1 Technique 1: Stand pivot Level of Assistance 1: Partial/Mod assistance (PA) Trials/Comments 1: increased time to stabilize BP Transfer To/From: Bed, Xxs-we-[id number]/Amlgu-on-Gto Assistive Devices And Adaptive Equipments: Other (INFORMATICS SPECIALIST) Patient Education Education Documentation Mobility, taught by Oswaldo Clifton PT at 08/31/2024 4:12 PM. Learner: Family, Patient Readiness: Acceptance Method: Explanation, Demonstration Response: Verbalizes Understanding, Needs Reinforcement Education Comments No comments found. Goal Encounter Goals Encounter Goals (Active) Patient will ambulate >400 feet distance using no device with no assistance Independent (Progressing) Start: 08/30/24 Expected End: 09/27/24 Patient will perform chair to and from bed transfer with no assistance Independent (Progressing) Start: 08/30/24 Expected End: 09/27/24 Patient will perform supine to sit /sit to supine on bed with no assistance Mod I demonstrating control (Progressing) Start: 08/30/24 Expected End: 09/27/24 General Visit Information Family/Caregiver Present: Yes Others Present: spouse, RN Post Therapy Checklist - in chair, call gonzalez within reach, phone within reach, and with family nearby Time Calculation:Start Time: 1001 Stop Time: 1030 Time Calculation (min): 29 min Treatment Note: If this is the last documented treatment, then it will signify discharge from acute care prior to discharge from the therapy service and will serve as the discharge summary. Oswaldo Clifton PT FRAME MOUNTER * Cisco Ruiz Jr., MD - 08/31/2024 8:00 AM RUG FRAME MOUNTER Images from the original note were not included. Cardiology Progress Note SUBJECTIVE: No acute changes.C/O persistent SOB Objective VITALS:Visit Vitals BP (!) 124/59 Pulse 80 Temp 36.8 ?C (98.3 ?F) (Oral) Resp (!) 38 Ht 1.651 m (5' 5") Wt 92 kg (202 lb 13.2 oz) SpO2 99% BMI 33.75 kg/m? OB Status Postmenopausal Smoking Status Never BSA 2.05 m? INTAKE/OUTPUT: Intake/Output Summary (Last 24 hours) at 08/31/2024 1530Last data filed at 08/31/2024 1500 Gross per 24 hour Intake 400 ml Output 2285 ml Net -1885 ml I/O last 3 completed shifts:In: 703.7 (7.6 mL/kg) [P.O.:600; IV Piggyback:103.7] Out: 2365 (25.7 mL/kg) [Urine:1525 (0.5 mL/kg/hr); Drains:20; Chest Tube:820] Weight: 92 kg PHYSICAL EXAM: General: Alert, cooperative, no distressHEENT: NC/AT, anicteric Cardiac: RRR, III/ HSM LLSB Lungs: Decreased BS Abdomen: Soft, NT/ND Extremities: No edema Neuro: Non-focal MEDICATION:acetaminophen, 1,000 mg, Oral, q8h DANTE albumin human, 25 g, Intravenous, Once aspirin EC, 81 mg, Oral, Daily brimonidine, 1 drop, Both Eyes, BID clopidogrel, 75 mg, Oral, Daily furosemide, 40 mg, Intravenous, Daily heparin, 5,000 Units, Subcutaneous, q8h hydrALAZINE, 10 mg, Oral, q8h insulin glargine, 30 Units, Subcutaneous, Daily insulin lispro, 7 Units, Subcutaneous, TID AC latanoprost, 1 drop, Both Eyes, Nightly methocarbamol, 750 mg, Oral, q8h pantoprazole, 40 mg, Oral, Daily before breakfast polyethylene glycol (PEG) 3350, 17 g, Oral, Daily potassium chloride, 20 mEq, Oral, Daily rosuvastatin, 20 mg, Oral, Nightly sennosides, 2 tablet, Oral, BID timolol, 1 drop, Both Eyes, BID LABS/IMAGING:Results from last 7 days Lab Units 08/31/24 1140 08/31/24 0335 08/31/24 0331 08/30/24 0722 08/30/24 0309 08/29/24 0448 08/29/24 0327 SODIUM mEq/L -- -- 139 -- 139 -- 139 POTASSIUM mEq/L -- -- 3.5 -- 3.9 -- 4.0 CHLORIDE mEq/L -- -- 105 -- 105 -- 106 CO2 mEq/L -- -- 25.9 -- 24.0 -- 25.0 BUN mg/dL -- -- 18 -- 20 -- 19 CREATININE mg/dL -- -- 0.65 -- 0.72 -- 0.75 GLUCOSE mg/dL -- -- 113* -- 111* -- 153* POC GLUCOSE mg/dL 130* < > -- < > -- < > -- CALCIUM mg/dL -- -- 8.2* -- 8.0* -- 8.7 MAGNESIUM mg/dL -- -- 2.04 -- 2.11 -- 1.75 PHOSPHORUS mg/dL -- -- 2.6 -- 3.1 -- 2.3* < > = values in this interval not displayed. Results from last 7 daysLab Units 08/26/24 1259 ALT U/L 8 AST U/L 51* ALBUMIN g/dL 3.0* ALK PHOS U/L 57 Results from last 7 daysLab Units 08/31/24 0332 08/30/24 0309 08/29/24 0327 08/28/24 2228 08/28/24 0336 08/27/24 0738 08/27/24 0328 WBC 10*3/uL 11.08* 10.94* 13.73* -- 17.73* -- 13.37* HEMOGLOBIN g/dL 10.6* 9.9* 10.3* < > 7.7* -- 8.5* POC HEMOGLOBIN -- -- -- -- -- < > -- HEMATOCRIT % 33.2* 31.4* 32.7* < > 24.4* -- 26.8* POC HEMATOCRIT -- -- -- -- -- < > -- PLATELETS 10*3/uL 132* 96* 87* -- 95* -- 143* INR -- -- 1.57* -- 1.82* -- 1.48* < > = values in this interval not displayed. No lab exists for component: "TROPTHS", "PROBNPNTERM" ECHOCARDIOGRAM:No results found for this or any previous visit. EKG:Results for orders placed or performed during the hospital encounter of 08/26/24 ECG 12 lead Collection Time: 08/26/24 1:15 PM Result Value Ref Range Ventricular Rate 75 BPM Atrial Rate 75 BPM AR Interval 176 ms QRS Duration 144 ms QT/QTc 460 ms QTc Calculation 513 ms P-[place] 67 degrees R-[place] 88 degrees T-[place] -36 degrees Patient Active Problem ListDiagnosis 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 Diabetes mellitus, type 2 (HCC) Primary hypertension Ischemic cardiomyopathy Acute blood loss anemia (ABLA) Macular degeneration Cardiogenic shock (HCC) ASSESSMENT & PLAN: S/P CABG - now off pressors - still paced - will ck underlying - weight is up - pulm edema, pleural effusions on CXR - on lasix daily 2. HTN- controlled 3. Hypotension when trying to get her up- low dose steroids added - compression stockings 4. Diabetes Cisco Ruiz Jr., MD Commercial [employer] Estate Sales Manager [facility] FRAME MOUNTER FRAME MOUNTER * GAEL Taylor - 08/31/2024 12:00 AM RUG FRAME MOUNTER PATIENT NAME: DEEPTHI MOORE CONTACT SERIAL NUMBER: [id number] DATE OF PROGRESS NOTE: 08/31/2024 SUBJECTIVE: The patient is awake and stated that she had a good night. She has been off pressors for the past 48 hours. Has not been able to get out of bed yet due to episodes of hypotension. OBJECTIVE: VITAL SIGNS: Blood pressure 150/52, heart rate 60, respirations 19, O2 saturation 100%. CARDIOVASCULAR: Regular rate and rhythm. LUNGS: With decreased breath sounds at bases. ABDOMEN: Soft, nontender. Positive bowel sounds. No palpable masses. EXTREMITIES: 1+ edema. NEUROLOGIC: No deficit. DRAINS: Chest tube drainage 540 cc in 24 hours. SAMARA drain 40 cc in 24 hours. LABORATORY DATA: Sodium 139, potassium 3.5, creatinine 0.6, BUN 18. WBC 11.0, hemoglobin 10.6, hematocrit 33.2, platelets 132. Chest x-ray shows persistent pulmonary vascular congestion and small bilateral pleural effusions. To start daily lasix. Dictated by: GAEL TAYLOR [facility] / [facility] FRAME MOUNTER * Maurice Wesley MD - 08/30/2024 6:02 PM RUG FRAME MOUNTER [place] Critical Care Note / History Of Present Illness: Deepthi Moore is a 68 y.o. female presenting with a history of CAD, diabetes mellitus, hypertension with associated hypertensive heart disease, and peripheral arterial disease who was found to have significant multivessel CAD on cardiac workup and presents to the ICU after undergoing CABG procedure. Daily Summary: 08/26: S/P CAB x 4 on vent support and will work on extubating. 08/27: Patient extubated yesterday without incident; gets a little lightheaded when standing up; no acute hemodynamic issues reported overnight. Yesterday became hypotensive around 7 PM and pressor needs were escalated and became more responsive. Epi 3mcg and NE 6mcg. U/O 350ml. Getting Albumin 5% 500ml. Once again, this morning, patient became unresponsive when they were setting her up. 08/28: Epi 2 + NE at 1mcg. In the setting of her repeated vasovagal events, will obtain carotid artery ultrasound and discussed with cardiology regarding possibly repeating echocardiogram to assess for any pericardial effusion as a cause for her symptoms. 08/29: Was off all drips, but upon being turned her blood pressure dropped, and thus is now on 1 mcg/min of norepinephrine. 500 mL of 5% albumin this morning for orthostasis. PT and OT ordered. PM update: Had an episode of shortness of breath when she was turned this afternoon, secondary to shortness of breath her blood pressure got as high as systolic of 180s even after norepinephrine d/c'd. Nicardipine was ordered, but never needed to be started as this spontaneously resolved. Stat transthoracic echo ordered in case there is a pericardial effusion building and contributing to this. Dr. Ruiz and Dr. Purvis updated and aware - per Dr. Lucas, hold off on starting any beta blockers. 08/30: 40 mg Lasix this morning, produced about 800 mL of urine diet 6 as needed. Did not work with physical therapy due to concerns of postural hypotension, per Dr. Purvis's recommendation was started on fludrocortisone yesterday in case her diabetes was causing her orthostatic hypotension. Otherwise off all vasoactive infusions. On nasal cannula, continue weaning off the oxygen for goal SpO2 > 92%. Motivated to try and walk tomorrow. Labs, imaging reviewed. Results from last 7 days Lab Units 08/30/24 1648 08/30/24 0722 08/30/24 0309 08/26/24 1358 08/26/24 1259 POC SODIUM -- -- -- < > -- SODIUM mEq/L -- -- 139 < > 146* POC POTASSIUM -- -- -- < > -- POTASSIUM mEq/L -- -- 3.9 < > 3.1* CHLORIDE mEq/L -- -- 105 < > 111* CO2 mEq/L -- -- 24.0 < > 24.6 POC CO2 (CALC) -- -- -- < > -- BUN mg/dL -- -- 20 < > 12 CREATININE mg/dL -- -- 0.72 < > 0.68 CALCIUM mg/dL -- -- 8.0* < > 8.2* PROTEIN TOTAL g/dL -- -- -- -- 5.7 BILIRUBIN TOTAL mg/dL -- -- -- -- 0.70 ALK PHOS U/L -- -- -- -- 57 ALT U/L -- -- -- -- 8 AST U/L -- -- -- -- 51* GLUCOSE mg/dL -- -- 111* < > 156* POC GLUCOSE mg/dL 155* < > -- < > -- < > = values in this interval not displayed. Results from last 7 days Lab Units 08/30/24 0309 08/29/24 0327 08/28/24 2228 08/28/24 0336 WBC 10*3/uL 10.94* 13.73* -- 17.73* HEMOGLOBIN g/dL 9.9* 10.3* 10.8 7.7* HEMATOCRIT % 31.4* 32.7* 33.6* 24.4* PLATELETS 10*3/uL 96* 87* -- 95* Physical Exam: Vitals: 08/30/24 1400 08/30/24 1430 08/30/24 1442 08/30/24 1600 BP: 140/64 Pulse: 64 62 Resp: (!) 35 19 Temp: 36.7 ?C (98.1 ?F) SpO2: 100% 100% ROS: Unable to obtain Gen'l: Patient lying in bed H&N: No scleral icterus or edema. No obvious JVD. Neuro: AAOx3 Card: No rubs or gallops. S1 and S2 present and without overt murmurs. Pacer set at VVI backup 50. Pulm: Clear to auscultation B/L. No wheezes / rales / rhonchi. Abd: Soft, NT, ND. Bowel sounds present. Ext: No edema or lesions noted. PP+ Assessment and Plan: Surg: Status post CABG x 4 Routine postoperative care including extubation per protocol Monitor chest tube output Cardiac and CV surgical follow-up Neur: Postoperative pain control Syncopal episodes Per the MAR Will obtain bilateral carotid arterial ultrasounds to assess for any concerning stenosis Discussed with cardiology regarding possibly repeating an echocardiogram Pulm: Postoperative ventilator support, resolved Goal SpO2 greater than or equal to 92%, titrate supplemental oxygen accordingly CV: History of hypertension; history of multivessel CAD now status post CABG History of ischemic cardiomyopathy with severe diastolic dysfunction Chronic congestive heart failure Orthostatic hypotension Meds Per the MAR Goal MAP greater than equal to 65, titrate vasopressors accordingly GI: No acute issues Oral diet when appropriate Bowel regimen Renal: No acute issues Monitor urinary output and daily labs ID: No acute issues Antibiotics per postoperative protocols Heme: No acute issues Daily labs Endo: No acute issues Trend fingersticks per postoperative protocol MSK: No acute issues PT/OT GI Prophylaxis: Per the [facility] DVT Prophylaxis: Per the [facility] FRAME MOUNTER * Cisco Ruiz Jr., MD - 08/30/2024 2:33 PM RUG FRAME MOUNTER Images from the original note were not included. Cardiology Progress Note SUBJECTIVE: Pt seen and examined. Sitting up in bed.C/O SOB still Objective VITALS:Visit Vitals BP (!) 126/50 Pulse 62 Temp 36.5 ?C (97.7 ?F) (Oral) Resp 17 Ht 1.651 m (5' 5") Wt 88.6 kg (195 lb 5.2 oz) SpO2 100% BMI 32.50 kg/m? OB Status Postmenopausal Smoking Status Never BSA 2.02 m? INTAKE/OUTPUT: Intake/Output Summary (Last 24 hours) at 08/30/2024 1433Last data filed at 08/30/2024 1200 Gross per 24 hour Intake 453.75 ml Output 1440 ml Net -986.25 ml I/O last 3 completed shifts:In: 798.3 (9 mL/kg) [P.O.:650; I.V.:44.6 (0.5 mL/kg); IV Piggyback:103.7] Out: 2320 (26.2 mL/kg) [Urine:1600 (0.5 mL/kg/hr); Drains:50; Chest Tube:670] Weight: 88.6 kg PHYSICAL EXAM: General: Alert, cooperative, no distressHEENT: NC/AT, anicteric Cardiac: RRR Lungs: Decreased BS Abdomen: Soft, NT/ND Extremities: Mild edema Neuro: Non-focal MEDICATION:acetaminophen, 1,000 mg, Oral, q8h DANTE albumin human, 25 g, Intravenous, Once aspirin EC, 81 mg, Oral, Daily brimonidine, 1 drop, Both Eyes, BID chlorhexidine, 15 mL, Mouth/Throat, 4x daily clopidogrel, 75 mg, Oral, Daily fludrocortisone, 0.2 mg, Oral, Daily [START ON 08/31/2024] furosemide, 40 mg, Intravenous, Daily heparin, 5,000 Units, Subcutaneous, q8h insulin glargine, 30 Units, Subcutaneous, Daily insulin lispro, 7 Units, Subcutaneous, TID AC latanoprost, 1 drop, Both Eyes, Nightly methocarbamol, 750 mg, Oral, q8h mupirocin, 1 Application, Nasal, BID polyethylene glycol (PEG) 3350, 17 g, Oral, Daily [START ON 08/31/2024] potassium chloride, 20 mEq, Oral, Daily rosuvastatin, 20 mg, Oral, Nightly sennosides, 1 tablet, Oral, BID timolol, 1 drop, Both Eyes, BID niCARdipine, 2.5-15 mg/hr, Last Rate: Stopped (08/29/24 1713)norepinephrine, 5- 70 mcg/min, Last Rate: Stopped (08/28/24 1108) LABS/IMAGING:Results from last 7 days Lab Units 08/30/24 1143 08/30/24 0722 08/30/24 0309 08/29/24 0448 08/29/24 0327 08/28/24 0345 08/28/24 0336 SODIUM mEq/L -- -- 139 -- 139 -- 142 POTASSIUM mEq/L -- -- 3.9 -- 4.0 -- 4.2 CHLORIDE mEq/L -- -- 105 -- 106 -- 108* CO2 mEq/L -- -- 24.0 -- 25.0 -- 25.0 BUN mg/dL -- -- 20 -- 19 -- 19 CREATININE mg/dL -- -- 0.72 -- 0.75 -- 0.74 GLUCOSE mg/dL -- -- 111* -- 153* -- 124* POC GLUCOSE mg/dL 166* < > -- < > -- < > -- CALCIUM mg/dL -- -- 8.0* -- 8.7 -- 8.8 MAGNESIUM mg/dL -- -- 2.11 -- 1.75 -- 2.00 PHOSPHORUS mg/dL -- -- 3.1 -- 2.3* -- 3.0 < > = values in this interval not displayed. Results from last 7 daysLab Units 08/26/24 1259 ALT U/L 8 AST U/L 51* ALBUMIN g/dL 3.0* ALK PHOS U/L 57 Results from last 7 daysLab Units 08/30/24 0309 08/29/24 0327 08/28/24 2228 08/28/24 0336 08/27/24 0738 08/27/24 0328 WBC 10*3/uL 10.94* 13.73* -- 17.73* -- 13.37* HEMOGLOBIN g/dL 9.9* 10.3* 10.8 7.7* -- 8.5* POC HEMOGLOBIN -- -- -- -- < > -- HEMATOCRIT % 31.4* 32.7* 33.6* 24.4* -- 26.8* POC HEMATOCRIT -- -- -- -- < > -- PLATELETS 10*3/uL 96* 87* -- 95* -- 143* INR -- 1.57* -- 1.82* -- 1.48* < > = values in this interval not displayed. No lab exists for component: "TROPTHS", "PROBNPNTERM" ECHOCARDIOGRAM:No results found for this or any previous visit. EKG:Results for orders placed or performed during the hospital encounter of 08/26/24 ECG 12 lead Collection Time: 08/26/24 1:15 PM Result Value Ref Range Ventricular Rate 75 BPM Atrial Rate 75 BPM AR Interval 176 ms QRS Duration 144 ms QT/QTc 460 ms QTc Calculation 513 ms P-Speed[place] 67 degrees R-Speed[place] 88 degrees T-Speedwell -36 degrees Patient Active Problem ListDiagnosis 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 Diabetes mellitus, type 2 (HCC) Primary hypertension Ischemic cardiomyopathy Acute blood loss anemia (ABLA) Macular degeneration Cardiogenic shock (HCC) ASSESSMENT & PLAN: S/P CABG- now off pressors - still paced - will ck underlying - weight is up - pulm edema, pleural effusions on CXR - agree w diuretics daily 2. HTN- controlled 3. Hypotension when trying to get her up- low dose steroids added - will order compression stockings 4. Diabetes Cisco Ruiz Jr., MDInterventional Teacher Kindergarten [facility] FRAME MOUNTER * Beth Cisneros, PT - 08/30/2024 11:55 AM RUG FRAME MOUNTER Physical Therapy Evaluation and Treatment Patient Name: Deepthi Moore Today’s Date: 08/30/24 Room Number: [id number]/[id number].CVICU* Patient's Preferred Language: [place] PT Assessment and Plan: Assessment Patient motivated to work with PT however is limited by orthostatic hypotension as well as drop in BP with positional changes. She is two person assist with tasks mainly due to this out of concern for safety. Otherwise, once this is under control, patient will benefit from PT to maximize safety and independence with functional mobility. Prognosis: Good Strengths: Attitude of self, Ability to acquire knowledge, Coping skills Medical Staff Made Aware: Yes Plan Treatment Plan/Goals Established with Patient/Caregiver: Yes Treatment/Interventions: Bed mobility training, Functional activities, Gait training, Stair training, Transfer training PT Plan: Skilled PT PT Frequency: 3-4 times per week until discharge PT Recommended Transfer Status: Independent AM-PAC Basic Mobility Turning in bed without bedrails: A Lot Lying on back to sitting on edge of flat bed: A Lot Bed to chair: A Lot Standing up from chair: A Lot Walk in room: A Lot Climbing 3-5 stairs: A Lot Mobility Inpatient Raw Score: 12 -HLM Goal: 4 [facility] Highest Level of Mobility (JH-HLM) Scale Highest Level of Mobility Performed (JH-HLM): Sat at edge of bed Subjective: Patient agreed to work with PT Current Problem: This is a 68 y.o. female who is s/p CABG x 4 Past Medical History: Diagnosis Date Coronary artery disease Diabetes mellitus (HCC) Heart disease Hypertension Hypotension Peripheral artery disease (HCC) Past Surgical History: Procedure Laterality Date CATARACT EXTRACTION 2009 and 2013 RETINAL DETACHMENT SURGERY Right 2014 Pain: (Pre Therapy Score) Pain Assessment Pain Assessment: DVPRS Pain Rating Scale (DVPRS): Distracts me, can do usual activities (RN at bedside in the room when patient stated her pain was a 4 and I repeated the value.) Pain Type: Surgical pain Pain Location: Sternum Vital Signs: WNL except BP varied (positional) Lines and Drains: chest tube, Graff catheter, IV lines. Social History: Home Living: Type of Home: House Lives With: Spouse Home Adaptive Equipment: None Home Layout: Two level (patient's room on 1st floor.) Prior Level of Function: Level of [place]: Other (Comment) (Independent with amb) Objective: Precautions: LE Weight Bearing Status: FWB Medical Precautions: sternal, falls, standard Isolation Status: No active isolations Cognition: Overall Cognitive Status: Within Functional Limits Behavior/Cognition: Alert, Cooperative, Pleasant mood Orientation Level: Oriented X4 General Assessment: Activity Tolerance: Early Mobility/Exercise Safety Screen: Proceed with mobilization - No exclusion criteria met Extremity Assessments Right Lower Extremity: RLE Assessment RLE Assessment: Within Functional Limits Left Lower Extremity: LLE Assessment LLE Assessment: Within Functional Limits Sensation: Light Touch: RLE Intact, LLE Intact Balance - Sitting: Static Sitting Balance Static Sitting-Balance Support: Feet supported Level of Assistance: Supervision/touching assistance Dynamic Sitting Balance Dynamic Sitting-Balance Support: Feet supported Balance - Standing: Static Standing Balance Static Standing-Balance Support: Left upper extremity supported, Right upper extremity supported Static Standing-Level of Assistance: Partial/Mod assistance Dynamic Standing Balance Dynamic Standing-Balance Support: Right upper extremity supported, Left upper extremity supported Functional Assessments and Treatments: Therapeutic Activity Time Entry: 15 Therapeutic Activity 1: Patient resting in bed. I introduced myself and explained role of PT in her care. Patient expressed understanding. I educated patient on sternal precautions and illustrated hand out given as well. Patient proceeded to mobilize at that time into sitting from supine, needing Max x 2 for upper body support as well as to bring her legs off of the bed in a manner that supports sternal precutions. She sat for a few minutes, BP appeared to drop a little but then stabilize more toward normal parameters. Once this occured, therapy stool placed under patient's feet to stand as bed was too high to safely attempt to stand. She stood at Mod x 2 level assist to stand and stood for ~10 seconds before needing to sit due to feeling slightly lightheaded. When she sat, BP dropped but not severe. Patient asked to lay down. She was assisted into supine at Total x 2 assist to bring legs on to bed and to lower trunk in a controlled manner. BP ramu to normal limit. Bed Mobility: Bed Mobility Bed Mobility: Yes Bed Mobility 1 Level of Assistance 1: Substantial/Max assistance Bed Mobility To/From: Sitting EOB to supine, Supine to sit on EOB Assistive Devices And Adaptive Equipments: Head of bed elevated Transfers: Transfers Transfer: Yes Transfer 1 Technique 1: Stand step Level of Assistance 1: Partial/Mod assistance Transfer To/From: Bed Assistive Devices And Adaptive Equipments: (hand held assist x 2) Gait Training: Gait Training Activity 1 Distance (enter in feet): 1 step on therapy stool Gait Training Activity 1: Indoor surface Assistive Devices And Adaptive Equipments: No device (hand held assist x 2) Level of Assistance 1: Partial/Mod assistance Therapeutic Exercise: Therapeutic Exercise Time Entry: 10 Therapeutic Exercise Activity 1: Bilat LE x 15 reps AROM with breaks due to fatigue and feeling too warm at times. Performed supine with HOB elevated hips/ankles/knees. Outcome Measures: 08/30/24 0910 Lulu RPE Scale Lulu RPE Scale - How Strenuous and Tiring The Work Feels 13 - Somewhat hard Patient Education Education Documentation Mobility, taught by Beth Cisneros PT at 08/30/2024 11:54 AM. Learner: Patient Readiness: Eager Method: Explanation Response: Verbalizes Understanding, Demonstrated Understanding Education Comments No comments found. Goal Encounter Goals Encounter Goals (Active) Patient will ambulate >400 feet distance using no device with no assistance Independent Start: 08/30/24 Expected End: 09/27/24 Patient will perform chair to and from bed transfer with no assistance Independent Start: 08/30/24 Expected End: 09/27/24 Patient will perform supine to sit /sit to supine on bed with no assistance Mod I demonstrating control Start: 08/30/24 Expected End: 09/27/24 Post Therapy Checklist - in bed, call gonzalez within reach, and bed/chair alarm in place Time CalculationStart Time: 0910 Stop Time: 0935 Time Calculation (min): 25 min PT Recreation Leader Used: Zack Moralezdo Treatment Note: If this is the last documented treatment, then it will signify discharge from acute care prior to discharge from the therapy service and will serve as the discharge summary. Beth Cisneros PT FRAME MOUNTER * Fredy Paulino MD - 08/30/2024 10:34 AM RUG FRAME MOUNTER [facility] Hospitalist Progress Note Subjective Patient seen and examined in CVICU. Reports mild surgical site discomfort. No acute issues overnight, has been weaned off pressors- discussed with patient at bedside Otherwise no acute issues overnight. Complaining of mild abdominal discomfort otherwise no acute issues overnight Objective Last Recorded Vitals Blood pressure (!) 127/58, pulse 62, temperature 36.6 ?C (97.9 ?F), temperature source Tympanic, resp. rate (!) 29, height 1.651 m (5' 5"), weight 88.6 kg (195 lb 5.2 oz), SpO2 100%. Physical Exam: General: Awake and alert, in no acute distress HEENT: Normocephalic, atraumatic, neck is supple, no thyromegaly. CVS: S1S2 normal, RRR Lungs: Fair air entry anteriorly with mildly reduced breath sounds along the bases, chest tube in place Abdomen: Soft, NT, ND, normoactive bowel sounds Extremities: No significant pedal edema Neuro: AO x 3, no focal neuro deficit Results: Results from last 7 days Lab Units 08/30/24 0309 08/29/24 0327 08/28/24 2228 08/28/24 0336 WBC 10*3/uL 10.94* 13.73* -- 17.73* HEMOGLOBIN g/dL 9.9* 10.3* 10.8 7.7* HEMATOCRIT % 31.4* 32.7* 33.6* 24.4* PLATELETS 10*3/uL 96* 87* -- 95* Results from last 7 days Lab Units 08/30/24 0722 08/30/24 0309 08/30/24 0001 08/29/24 0448 08/29/24 0327 08/28/24 0345 08/28/24 0336 08/26/24 1358 08/26/24 1259 POC SODIUM -- -- -- -- -- -- -- < > -- SODIUM mEq/L -- 139 -- -- 139 -- 142 < > 146* POC POTASSIUM -- -- -- -- -- -- -- < > -- POTASSIUM mEq/L -- 3.9 -- -- 4.0 -- 4.2 < > 3.1* CHLORIDE mEq/L -- 105 -- -- 106 -- 108* < > 111* CO2 mEq/L -- 24.0 -- -- 25.0 -- 25.0 < > 24.6 POC CO2 (CALC) -- -- -- -- -- -- -- < > -- BUN mg/dL -- 20 -- -- 19 -- 19 < > 12 CREATININE mg/dL -- 0.72 -- -- 0.75 -- 0.74 < > 0.68 CALCIUM mg/dL -- 8.0* -- -- 8.7 -- 8.8 < > 8.2* PROTEIN TOTAL g/dL -- -- -- -- -- -- -- -- 5.7 BILIRUBIN TOTAL mg/dL -- -- -- -- -- -- -- -- 0.70 ALK PHOS U/L -- -- -- -- -- -- -- -- 57 ALT U/L -- -- -- -- -- -- -- -- 8 AST U/L -- -- -- -- -- -- -- -- 51* GLUCOSE mg/dL -- 111* -- -- 153* -- 124* < > 156* POC GLUCOSE mg/dL 98 -- 122* < > -- < > -- < > -- < > = values in this interval not displayed. Recent Images XR chest 1 view Result Date: 08/30/2024 EXAMINATION: XR CHEST 1 VIEW HISTORY: chest tubes COMPARISON: None COMMENT: Support devices are stable. The heart remains enlarged. There is persistent pulmonary edema pattern and left greater than right effusions. No pneumothorax with mediastinal drain and left chest tube in place. Compared to prior study there is no appreciable change. Stable chest. Electronically signed by: Neeta Santos MD 08/30/2024 09:15 AM [facility] RP US lower extremity venous doppler bilateral Result Date: 08/30/2024 Bilateral Lower Extremity Venous Duplex Doppler Examination Location Code M12 History: Lower extremity doppler Technique: Real-time herrera scale, Doppler spectral analysis and Doppler color flow evaluation was performed using a dedicated transducer. Graded compression with augmentation were performed. FINDINGS: Lower extremity veins were sampled including the common femoral, femoral, proximal deep femoral, greater saphenous and popliteal veins. RIGHT: The proximal greater saphenous vein is noncompressible containing echogenic thrombus. The distal greater saphenous vein at the level of the knee is patent and compressible. No filling defects are seen to suggest deep venous thrombosis. There is normal response to compression. There are normal venous waveforms. LEFT: No filling defects are seen to suggest deep venous thrombosis. There is normal response to compression. There are normal venous waveforms. No sonographic evidence of DVT in the lower extremities. Superficial vein thrombosis in the right proximal greater saphenous vein. Electronically signed by: Ksenia Morales MD 08/30/2024 01:55 AM [facility] RP Transthoracic echo (TTE) complete Result Date: 08/29/2024 Left Ventricle: Left ventricle size is normal. Mild septal thickening in the left ventricle. Reduced systolic function with an estimated EF of 40 - 45%. Grade II diastolic dysfunction of the left ventricle. Aortic Valve: Aortic valve is trileaflet. Moderately thickened leaflets in the aortic valve. Mildly calcified leaflets in the aortic valve. Pericardium: Left pleural effusion present. Tricuspid Valve: Mild tricuspid regurgitation present. Mitral Valve: Mitral valve is structurally normal. Mildly calcified leaflets in the mitral valve. Mild to moderate mitral regurgitation present. Scheduled Meds acetaminophen, 1,000 mg, Oral, q8h DANTE albumin human, 25 g, Intravenous, Once aspirin EC, 81 mg, Oral, Daily brimonidine, 1 drop, Both Eyes, BID chlorhexidine, 15 mL, Mouth/Throat, 4x daily clopidogrel, 75 mg, Oral, Daily fludrocortisone, 0.2 mg, Oral, Daily heparin, 5,000 Units, Subcutaneous, q8h insulin glargine, 30 Units, Subcutaneous, Daily insulin lispro, 7 Units, Subcutaneous, TID AC latanoprost, 1 drop, Both Eyes, Nightly methocarbamol, 750 mg, Oral, q8h mupirocin, 1 Application, Nasal, BID polyethylene glycol (PEG) 3350, 17 g, Oral, Daily rosuvastatin, 20 mg, Oral, Nightly sennosides, 1 tablet, Oral, BID timolol, 1 drop, Both Eyes, BID niCARdipine, 2.5-15 mg/hr, Last Rate: Stopped (08/29/24 1713)norepinephrine, 5- 70 mcg/min, Last Rate: Stopped (08/28/24 1108) PRN medications: calcium gluconate, chlorhexidine, dextrose, dextrose, docusate sodium, glucagon, [Held by provider] HYDROmorphone, insulin lispro, lidocaine, magnesium sulfate, melatonin, oxyCODONE, polyethylene glycol (PEG) 3350, potassium & sodium phosphates OR potassium & sodium phosphates, potassium chloride OR potassium chloride OR potassium chloride OR Potassium chloride, sodium phosphates 45 mmol in sodium chloride 0.9 % 100 mL IVPB Assessment & Plan 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 S/p CABG x4 with HELM to the LAD, Reversed saphenous vein graft from the aorta to the first diagonal and the OM, Reversed saphenous vein graft from the aorta to the PDA (RCA), Exclusion of the left atrial appendage with an AtriClip on 2. Had 2 episodes of decreased responsiveness on POD #1. Carotid ultrasound showed no hemodynamically significant stenosis, and echocardiogram shows ejection fraction of 45%. C/W current supportive care Post op management as per CVS-chest tube management per surgery. Will continue to monitor Otherwise remains hemodynamically stable off pressors Diabetes mellitus, type 2 (HCC) Will continue insulin per ICU protocol Primary hypertension Has been weaned off pressors Will consider initiation of low-dose beta-blockers when blood pressure feasible Ischemic cardiomyopathyC/w medical management Echo shows EF of 45%, aim to maintain euvolemic status Remains clinically and symptomatically stable Acute blood loss anemia (ABLA) Secondary to intra op blood loss. Will continue to monitor and transfuse as needed. Macular degenerationResume eye gtt as appropriate Cardiogenic shock (HCC) Current Diet: Adult Diet Carbohydrate Controlled; Carb choice 1800 robert VTE Prophylaxis heparin - 5000 units/mLPlan to transfer out of ICU over the next 24 hours if stable. Discussed with guest room inspector service Fredy Paulino MD08/30/2024 This note was dictated with the use of [employer] speech recognition software. Please use best judgement when interpreting and excuse any drying and winding supervisor errors. If any questions in this regard, you can reach out to me at [phone]. FRAME MOUNTER * Qiana Santiago, OT - 08/30/2024 8:25 AM RUG FRAME MOUNTER Occupational Therapy Evaluation and Treatment Patient Name: Deepthi Moore Today's Date: 08/30/2024 CICU2 Preferred Language: [place]ican Assessment & Plan AM-PAC Daily Activity: Putting on and taking off regular lower body clothing: Total Bathing (including washing, rinsing, drying): Total Toileting, which includes using toilet, bedpan or urinal: Total Putting on and taking off regular upper body clothing: A Lot Taking care of personal grooming such as brushing teeth: A Little Eating Meals: A Little AM-PAC Daily Activity Raw Score: 11 Mobility Highest Level of Mobility Performed (JH-HLM): Bed activity Treatment: Self Care/Home Management (ADLs) Time Entry: 10 Eating Assistance: Supervision/touching assistance Grooming Assistance: Supervision/touching assistance UE Dressing Assistance: Substantial/Max assistance Bed Mobility: Substantial/Max assistance Bed Mobility To/From: Other (semisupine to side lying on R) General Visit Information: Pt. In bed and nurse reported that pt. Blood pressure dropping with slightest movement in bed. Nurse requested for OT to try so pt. Is moving but upon Ranging assessment and senior living bed mobility, pt. Arterial BP dropped so movement discontinued and rest of ADLs completed in bed. Assessment: OT Assessment Results: Impaired ADL status, Impaired endurance, Impaired functional mobility, Impaired trunk control for functional activities Prognosis: Fair Evaluation/Treatment Tolerance: Treatment limited secondary to medical complications (Comment) Medical Staff Made Aware: Yes Strengths: Support and attitude of living partners Plan: Treatment Plan/Goals Established with Patient/Caregiver: Yes Treatment Interventions: ADL retraining, Compensatory technique education, Equipment evaluation/education, Endurance training, Functional transfer training, Patient/family training, UE strengthening/ROM OT Planned Treatments: Activities of Daily Living, Balance training, Caregiver training, Energy conservation training, Mobility training, Safety education, Therapeutic activities, Therapeutic exercises OT Plan: Skilled OT OT Frequency: 2-3 times per week until discharge OT Duration: Discharge Equipment Recommended: Shower bath chair, Walker- rolling Subjective Current Problem:s/p AYLIN Deepthi Moore is a 68 y.o. year old female patient with Atherosclerotic heart disease of hoopa coronary artery without angina pectoris [I25.10] 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 [I25.10] referred to Occupational therapy services . Past Medical History: Diagnosis Date Coronary artery disease Diabetes mellitus (HCC) Heart disease Hypertension Hypotension Peripheral artery disease (HCC) Past Surgical History: Procedure Laterality Date CATARACT EXTRACTION 2009 and 2012 RETINAL DETACHMENT SURGERY Right 2014 Pain:0/10 Objective Precautions: Post-Surgical Precautions: Sternal Cognition: Overall Cognitive Status: Within Functional Limits Behavior/Cognition: Alert, Cooperative Home Living: Type of Home: House Lives With: Spouse Home Adaptive Equipment: None Home Living Comments: Pt. stayed in a 2nd floor apartment here in [place], Alone for work but has a 2 story home in [place] with her family that she will be going to when she leaves hospital. Home Layout: Two level, Able to live on main level with bedroom/bathroom Home Access: Level entry Bathroom Shower/Tub: Walk-in shower Bathroom Toilet: Standard Bathroom Accessibility: Pt. has a walk in shower downstairs but no equipment in downstairs shower. has a built in shower chair and grab bars in upstairs walk in shower. Prior Function: Level of [place]: Household ambulation ADL Assistance: Independent Homemaking Assistance: Independent Prior IADL: Current License: Yes Mode of Transportation: Car Self Care (ADL): Eating Assistance: Supervision/touching assistance Grooming Assistance: Supervision/touching assistance Bathing Assistance: Dependent UE Dressing Assistance: Substantial/Max assistance LE Dressing Assistance: Dependent Toileting Assistance: Dependent OT General Assessments: Activity Tolerance Endurance: Tolerates 10 - 20 min exercise with multiple rests Activity Tolerance Comments: Pt. BP dropping to 80s/50s (specifically 88/52 during ranging assessment) with any movement. Coordination Movements are Fluid and Coordinated: Yes Finger to Nose: Left intact, Right intact Hand Function Gross Grasp: Functional Coordination: Functional Extremity Assessments: Right Upper Extremity RUE Assessment RUE Assessment: Within Functional Limits Left Upper Extremity LUE Assessment LUE Assessment: Within Functional Limits Patient Education: Education Documentation Occupational Therapy Plan of Care, taught by Qiana Santiago OT at 08/30/2024 12:05 PM. Learner: Patient Readiness: Acceptance Method: Explanation Response: Verbalizes Understanding Education Comments No comments found. Goals: Encounter Goals Encounter Goals (Active) LTG - Patient will demonstrate Intervention to enhance balance for safe completion of daily activities SPV Start: 08/30/24 Expected End: 09/09/24 LTG - Patient will demonstrate use of appropriate intervention for safe dressing of upper extremities mod I Start: 08/30/24 Expected End: 09/09/24 LTG - Patient will demonstrate safety requirements appropriate to situation/environment mod I Start: 08/30/24 Expected End: 09/09/24 Treatment Note: If this is the last documented treatment, then it will signify discharge from acute care prior to discharge from the therapy service and will serve as the discharge summary. Qiana Santiago OT FRAME MOUNTER * Fredy Paulino MD - 08/29/2024 5:30 PM RUG FRAME MOUNTER [facility] Hospitalist Progress Note Subjective Patient seen and examined in CVICU. Reports mild surgical site discomfort. No acute issues overnight, has been weaned off pressors and presently on albumin to maintain hemodynamic pressures, discussed with patient at bedside Otherwise no acute issues overnight Objective Last Recorded Vitals Blood pressure (!) 148/51, pulse 66, temperature 36.8 ?C (98.2 ?F), temperature source Oral, resp. rate (!) 32, height 1.651 m (5' 5"), weight 88.8 kg (195 lb 12.3 oz), SpO2 96%. Physical Exam: General: Awake and alert, in no acute distress HEENT: Normocephalic, atraumatic, neck is supple, no thyromegaly. CVS: S1S2 normal, RRR Lungs: Fair air entry anteriorly with mildly reduced breath sounds along the bases, chest tube in place Abdomen: Soft, NT, ND, normoactive bowel sounds Extremities: No significant pedal edema Neuro: AO x 3, no focal neuro deficit Results: Results from last 7 days Lab Units 08/29/24 0327 08/28/24 2228 08/28/24 0336 08/27/24 0738 08/27/24 0328 WBC 10*3/uL 13.73* -- 17.73* -- 13.37* HEMOGLOBIN g/dL 10.3* 10.8 7.7* -- 8.5* POC HEMOGLOBIN -- -- -- < > -- HEMATOCRIT % 32.7* 33.6* 24.4* -- 26.8* POC HEMATOCRIT -- -- -- < > -- PLATELETS 10*3/uL 87* -- 95* -- 143* < > = values in this interval not displayed. Results from last 7 days Lab Units 08/29/24 1512 08/29/24 1104 08/29/24 0714 08/29/24 0448 08/29/24 0327 08/28/24 0345 08/28/24 0336 08/27/24 2302 08/27/24 2214 08/27/24 1521 08/27/24 1512 08/26/24 1358 08/26/24 1259 POC SODIUM -- -- -- -- -- -- -- -- -- -- -- < > -- SODIUM mEq/L -- -- -- -- 139 -- 142 -- -- -- 141 < > 146* POC POTASSIUM -- -- -- -- -- -- -- -- -- -- -- < > -- POTASSIUM mEq/L -- -- -- -- 4.0 -- 4.2 -- 4.8* -- 4.6* | 4.6* < > 3.1* CHLORIDE mEq/L -- -- -- -- 106 -- 108* -- -- -- 109* < > 111* CO2 mEq/L -- -- -- -- 25.0 -- 25.0 -- -- -- 25.3 < > 24.6 POC CO2 (CALC) -- -- -- -- -- -- -- -- -- -- -- < > -- BUN mg/dL -- -- -- -- 19 -- 19 -- -- -- 23 < > 12 CREATININE mg/dL -- -- -- -- 0.75 -- 0.74 -- -- -- 0.77 < > 0.68 CALCIUM mg/dL -- -- -- -- 8.7 -- 8.8 -- -- -- 8.0* < > 8.2* PROTEIN TOTAL g/dL -- -- -- -- -- -- -- -- -- -- -- -- 5.7 BILIRUBIN TOTAL mg/dL -- -- -- -- -- -- -- -- -- -- -- -- 0.70 ALK PHOS U/L -- -- -- -- -- -- -- -- -- -- -- -- 57 ALT U/L -- -- -- -- -- -- -- -- -- -- -- -- 8 AST U/L -- -- -- -- -- -- -- -- -- -- -- -- 51* GLUCOSE mg/dL -- -- -- -- 153* -- 124* -- -- -- 202* < > 156* POC GLUCOSE mg/dL 199* 171* 113* < > -- < > -- < > -- < > -- < > -- < > = values in this interval not displayed. Recent Images XR chest 1 view Result Date: 08/29/2024 EXAMINATION: XR CHEST 1 VIEW LOCATION: H 31 INDICATION: Post CABG. COMPARISON: XR Chest 08/28/2024 FINDINGS: Cardiomegaly is redemonstrated. The atrial clip is noted. Mediastinal drain in place. Right IJ catheter tip is at distal SVC. Spencer-Tiny catheter has been discontinued. The chest tube is still directed towards the left lateral chest. Small left pleural effusion with left basilar infiltrate/atelectasis. Trace right pleural effusion. Mild central pulmonary vascular congestion remains. No evidence of pneumothorax. Sternal wires and mediastinal clips are again noted. Multiple wires superimpose the patient. 1. Small left pleural effusion with left basilar infiltrate/atelectasis. Trace right pleural effusion. 2. Mild central pulmonary vascular congestion. 3. Postsurgical changes. Support devices as described. Electronically signed by: Padmini Middleton MD 08/29/2024 09:09 AM [facility] Scheduled Meds acetaminophen, 1,000 mg, Oral, q6h acetaminophen, 1,000 mg, Oral, q8h DANTE albumin human, 25 g, Intravenous, Once aspirin EC, 81 mg, Oral, Daily brimonidine, 1 drop, Both Eyes, BID chlorhexidine, 15 mL, Mouth/Throat, 4x daily [START ON 08/30/2024] clopidogrel, 75 mg, Oral, Daily heparin, 5,000 Units, Subcutaneous, q8h insulin glargine, 30 Units, Subcutaneous, Daily insulin lispro, 7 Units, Subcutaneous, TID AC latanoprost, 1 drop, Both Eyes, Nightly methocarbamol, 750 mg, Oral, q8h mupirocin, 1 Application, Nasal, BID niCARdipine, , , polyethylene glycol (PEG) 3350, 17 g, Oral, Daily rosuvastatin, 20 mg, Oral, Nightly sennosides, 1 tablet, Oral, BID timolol, 1 drop, Both Eyes, BID niCARdipine, 2.5-15 mg/hr, Last Rate: 1 mg/hr (08/29/24 1712)norepinephrine, 5- 70 mcg/min, Last Rate: Stopped (08/28/24 1108) PRN medications: calcium gluconate, chlorhexidine, dextrose, dextrose, docusate sodium, glucagon, [Held by provider] HYDROmorphone, insulin lispro, magnesium sulfate, melatonin, niCARdipine, oxyCODONE, polyethylene glycol (PEG) 3350, potassium & sodium phosphates OR potassium & sodium phosphates, potassium chloride OR potassium chloride OR potassium chloride OR Potassium chloride, sodium phosphates 45 mmol in sodium chloride 0.9 % 100 mL IVPB Assessment & Plan 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 Had 2 episodes of decreased responsiveness on POD #1. Carotid ultrasound showed no hemodynamically significant stenosis, and echocardiogram shows ejection fraction of 45%. C/W current supportive care Post op management as per [facility]- [facility] OP about 660ml in 24 hours Wean off pressors as tolerated. Diabetes mellitus, type 2 (HCC)On insulin per ICU protocol Primary hypertension Wean off pressors as tolerated Will consider initiation of low-dose beta-blockers when blood pressure feasible Ischemic cardiomyopathyC/w medical management Echo shows EF of 45%, aim to maintain euvolemic status Acute blood loss anemia (ABLA)Intra op blood loss. Will continue to monitor and transfuse as needed. Macular degenerationResume eye gtt as appropriate Cardiogenic shock (HCC) Current Diet: Adult Diet Carbohydrate Controlled; Carb choice 1800 robert VTE Prophylaxis heparin - 5000 units/mLPlan to transfer out of ICU over the next 24 hours if stable. Discussed with guest room inspector service Fredy Paulino MD08/29/2024 This note was dictated with the use of [employer] speech recognition software. Please use best judgement when interpreting and excuse any drying and winding supervisor errors. If any questions in this regard, you can reach out to me at [phone]. FRAME MOUNTER * Maurice Wesley MD - 08/29/2024 12:03 PM [facility] [place] Critical Care Note / History Of Present Illness: Deepthi Moore is a 68 y.o. female presenting with a history of CAD, diabetes mellitus, hypertension with associated hypertensive heart disease, and peripheral arterial disease who was found to have significant multivessel CAD on cardiac workup and presents to the ICU after undergoing CABG procedure. Daily Summary: 08/26: S/P CAB x 4 on vent support and will work on extubating. 08/27: Patient extubated yesterday without incident; gets a little lightheaded when standing up; no acute hemodynamic issues reported overnight. Yesterday became hypotensive around 7 PM and pressor needs were escalated and became more responsive. Epi 3mcg and NE 6mcg. U/O 350ml. Getting Albumin 5% 500ml. Once again, this morning, patient became unresponsive when they were setting her up. 08/28: Epi 2 + NE at 1mcg. In the setting of her repeated vasovagal events, will obtain carotid artery ultrasound and discussed with cardiology regarding possibly repeating echocardiogram to assess for any pericardial effusion as a cause for her symptoms. 08/29: Was off all drips, but upon being turned her blood pressure dropped, and thus is now on 1 mcg/min of norepinephrine. 500 mL of 5% albumin this morning for orthostasis. PT and OT ordered. PM update: Had an episode of shortness of breath when she was turned this afternoon, secondary to shortness of breath her blood pressure got as high as systolic of 180s even after norepinephrine d/c'd. Nicardipine was ordered, but never needed to be started as this spontaneously resolved. Stat transthoracic echo ordered in case there is a pericardial effusion building and contributing to this. Dr. Ruiz and Dr. Purvis updated and aware - per Dr. Lucas, hold off on starting any beta blockers. Labs, imaging reviewed. Results from last 7 days Lab Units 08/29/24 1104 08/29/24 0448 08/29/24 0327 08/26/24 1358 08/26/24 1259 POC SODIUM -- -- -- < > -- SODIUM mEq/L -- -- 139 < > 146* POC POTASSIUM -- -- -- < > -- POTASSIUM mEq/L -- -- 4.0 < > 3.1* CHLORIDE mEq/L -- -- 106 < > 111* CO2 mEq/L -- -- 25.0 < > 24.6 POC CO2 (CALC) -- -- -- < > -- BUN mg/dL -- -- 19 < > 12 CREATININE mg/dL -- -- 0.75 < > 0.68 CALCIUM mg/dL -- -- 8.7 < > 8.2* PROTEIN TOTAL g/dL -- -- -- -- 5.7 BILIRUBIN TOTAL mg/dL -- -- -- -- 0.70 ALK PHOS U/L -- -- -- -- 57 ALT U/L -- -- -- -- 8 AST U/L -- -- -- -- 51* GLUCOSE mg/dL -- -- 153* < > 156* POC GLUCOSE mg/dL 171* < > -- < > -- < > = values in this interval not displayed. Results from last 7 days Lab Units 08/29/24 0327 08/28/24 2228 08/28/24 0336 08/27/24 0738 08/27/24 0328 WBC 10*3/uL 13.73* -- 17.73* -- 13.37* HEMOGLOBIN g/dL 10.3* 10.8 7.7* -- 8.5* POC HEMOGLOBIN -- -- -- < > -- HEMATOCRIT % 32.7* 33.6* 24.4* -- 26.8* POC HEMATOCRIT -- -- -- < > -- PLATELETS 10*3/uL 87* -- 95* -- 143* < > = values in this interval not displayed. Physical Exam: Vitals: 08/29/24 0900 08/29/24 1000 08/29/24 1100 08/29/24 1123 BP: (!) 110/26 (!) 116/53 (!) 117/47 Pulse: 61 62 63 64 Resp: 18 21 20 20 Temp: 36.8 ?C (98.2 ?F) SpO2: ROS: Unable to obtain Gen'l: Patient lying in bed H&N: No scleral icterus or edema. No obvious JVD. Neuro: AAOx3 Card: No rubs or gallops. S1 and S2 present and without overt murmurs. Pacer set at VVI backup 50. Pulm: Clear to auscultation B/L. No wheezes / rales / rhonchi. Abd: Soft, NT, ND. Bowel sounds present. Ext: No edema or lesions noted. PP+ Assessment and Plan: Surg: Status post CABG x 4 Routine postoperative care including extubation per protocol Monitor chest tube output Cardiac and CV surgical follow-up Neur: Postoperative pain control Syncopal episodes Per the [facility] Will obtain bilateral carotid arterial ultrasounds to assess for any concerning stenosis Discussed with cardiology regarding possibly repeating an echocardiogram Pulm: Postoperative ventilator support, resolved Goal SpO2 greater than or equal to 92%, titrate supplemental oxygen accordingly CV: History of hypertension; history of multivessel CAD now status post CABG History of ischemic cardiomyopathy with severe diastolic dysfunction Chronic congestive heart failure Orthostatic hypotension Meds Per the [facility] Goal MAP greater than equal to 65, titrate vasopressors accordingly GI: No acute issues Oral diet when appropriate Bowel regimen Renal: No acute issues Monitor urinary output and daily labs ID: No acute issues Antibiotics per postoperative protocols Heme: No acute issues Daily labs Endo: No acute issues Trend fingersticks per postoperative protocol MSK: No acute issues PT/OT GI Prophylaxis: Per the [facility] DVT Prophylaxis: Per the [facility] FRAME MOUNTER FRAME MOUNTER * Cisco Ruiz Jr., MD - 08/29/2024 9:28 AM [facility] [employer] Images from the original note were not included. Cardiology Progress Note SUBJECTIVE: Pt seen and examinedNo acute changes. Off pressors Objective VITALS:Visit Vitals BP (!) 119/53 Pulse 80 Temp 36.8 ?C (98.2 ?F) (Oral) Resp (!) 23 Ht 1.651 m (5' 5") Wt 88.8 kg (195 lb 12.3 oz) SpO2 97% BMI 32.58 kg/m? OB Status Postmenopausal Smoking Status Never BSA 2.02 m? INTAKE/OUTPUT: Intake/Output Summary (Last 24 hours) at 08/29/2024 0928Last data filed at 08/29/2024 0800 Gross per 24 hour Intake 1149.04 ml Output 2240 ml Net -1090.96 ml I/O last 3 completed shifts:In: 1963.6 (22.1 mL/kg) [P.O.:750; I.V.:374.6 (4.2 mL/kg); Blood:635; IV Piggyback:204] Out: 3700 (41.7 mL/kg) [Urine:2905 (0.9 mL/kg/hr); Drains:45; Chest Tube:750] Weight: 88.8 kg PHYSICAL EXAM: General: Alert, cooperative, no distressHEENT: NC/AT, anicteric Cardiac: RRR, II/ OMAR LLSB, +S4 Lungs: Decreased BS Abdomen: Soft, NT/ND Extremities: Mild edema Neuro: Non-focal CT drainage 470cc over 24hJP drainage 35 ml over 24h MEDICATION: acetaminophen, 1,000 mg, Oral, q6h albumin human, 25 g, Intravenous, Once aspirin EC, 81 mg, Oral, Daily brimonidine, 1 drop, Both Eyes, BID chlorhexidine, 15 mL, Mouth/Throat, 4x daily heparin, 5,000 Units, Subcutaneous, q12h insulin glargine, 30 Units, Subcutaneous, Daily insulin lispro, 7 Units, Subcutaneous, TID AC latanoprost, 1 drop, Both Eyes, Nightly methocarbamol, 750 mg, Oral, q8h mupirocin, 1 Application, Nasal, BID rosuvastatin, 20 mg, Oral, Nightly timolol, 1 drop, Both Eyes, BID EPINEPHrine, 1-35 mcg/min, Last Rate: Stopped (08/29/24 0342)norepinephrine, 5- 70 mcg/min, Last Rate: Stopped (08/28/24 1108) LABS/IMAGING:Results from last 7 days Lab Units 08/29/24 0714 08/29/24 0448 08/29/24 0327 08/28/24 0345 08/28/24 0336 08/27/24 2302 08/27/24 2214 08/27/24 1521 08/27/24 1512 SODIUM mEq/L -- -- 139 -- 142 -- -- -- 141 POTASSIUM mEq/L -- -- 4.0 -- 4.2 -- 4.8* -- 4.6* | 4.6* CHLORIDE mEq/L -- -- 106 -- 108* -- -- -- 109* CO2 mEq/L -- -- 25.0 -- 25.0 -- -- -- 25.3 BUN mg/dL -- -- 19 -- 19 -- -- -- 23 CREATININE mg/dL -- -- 0.75 -- 0.74 -- -- -- 0.77 GLUCOSE mg/dL -- -- 153* -- 124* -- -- -- 202* POC GLUCOSE mg/dL 113* < > -- < > -- < > -- < > -- CALCIUM mg/dL -- -- 8.7 -- 8.8 -- -- -- 8.0* MAGNESIUM mg/dL -- -- 1.75 -- 2.00 -- 2.27 -- 2.31 PHOSPHORUS mg/dL -- -- 2.3* -- 3.0 -- 2.9 -- 2.6 < > = values in this interval not displayed. Results from last 7 daysLab Units 08/26/24 1259 ALT U/L 8 AST U/L 51* ALBUMIN g/dL 3.0* ALK PHOS U/L 57 Results from last 7 daysLab Units 08/29/24 0327 08/28/24 2228 08/28/24 0336 08/27/24 0738 08/27/24 0328 WBC 10*3/uL 13.73* -- 17.73* -- 13.37* HEMOGLOBIN g/dL 10.3* 10.8 7.7* -- 8.5* POC HEMOGLOBIN -- -- -- < > -- HEMATOCRIT % 32.7* 33.6* 24.4* -- 26.8* POC HEMATOCRIT -- -- -- < > -- PLATELETS 10*3/uL 87* -- 95* -- 143* INR 1.57* -- 1.82* -- 1.48* < > = values in this interval not displayed. No lab exists for component: "TROPTHS", "PROBNPNTERM" ECHOCARDIOGRAM:No results found for this or any previous visit. EKG:Results for orders placed or performed during the hospital encounter of 08/26/24 ECG 12 lead Collection Time: 08/26/24 1:15 PM Result Value Ref Range Ventricular Rate 75 BPM Atrial Rate 75 BPM AR Interval 176 ms QRS Duration 144 ms QT/QTc 460 ms QTc Calculation 513 ms P-Speed[place] 67 degrees R-Speed[place] 88 degrees T-Speedwell -36 degrees Patient Active Problem ListDiagnosis 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 Diabetes mellitus, type 2 (HCC) Primary hypertension Ischemic cardiomyopathy Acute blood loss anemia (ABLA) Macular degeneration Cardiogenic shock (HCC) ASSESSMENT & PLAN: S/P CABG- now off pressors - still paced - will ck underlying - weight is up - agree w diuretics daily 2. HTN- controlled 3. Diabetes Cisco Ruiz Jr., MDInterventional Teacher Kindergarten [facility] FRAME MOUNTER * Christal Bliss MD - 08/28/2024 12:22 PM [facility] [employer] [facility] Hospitalist Progress Note Subjective Patient seen and examined in CVICU. Reports surgical site discomfort. No acute issues overnight, continues to remain on Epi and NE. Family is at the bedside. Objective Last Recorded Vitals Blood pressure (!) 102/56, pulse 96, temperature 37.1 ?C (98.8 ?F), resp. rate 20, height 1.651 m (5' 5"), weight 88.9 kg (195 lb 15.8 oz), SpO2 100%. Physical Exam: General: Awake and alert, in no acute distress HEENT: Normocephalic, atraumatic, neck is supple, catheter in place CVS: S1S2 normal, RRR Lungs: [place] with chest tube in place Abdomen: Soft, NT, ND, normoactive bowel sounds Extremities: No significant pedal edema Neuro: AO x 3, no focal neuro deficit Results: Results from last 7 days Lab Units 08/28/24 0336 08/27/24 0738 08/27/24 0328 08/26/24 1630 WBC 10*3/uL 17.73* -- 13.37* 13.40* HEMOGLOBIN g/dL 7.7* -- 8.5* 9.7* POC HEMOGLOBIN g/dL -- 8.8* -- -- HEMATOCRIT % 24.4* -- 26.8* 29.6* POC HEMATOCRIT % -- 26.0* -- -- PLATELETS 10*3/uL 95* -- 143* 159* Results from last 7 days Lab Units 08/28/24 1120 08/28/24 0742 08/28/24 0409 08/28/24 0345 08/28/24 0336 08/27/24 2302 08/27/24 2214 08/27/24 1521 08/27/24 1512 08/27/24 0939 08/27/24 0738 08/27/24 0408 08/27/24 0328 08/26/24 1358 08/26/24 1259 POC SODIUM mEq/L -- -- -- -- -- -- -- -- -- -- 147* -- -- -- -- SODIUM mEq/L -- -- -- -- 142 -- -- -- 141 -- -- -- 147* < > 146* POC POTASSIUM mEq/L -- -- -- -- -- -- -- -- -- -- 3.6 -- -- -- -- POTASSIUM mEq/L -- -- -- -- 4.2 -- 4.8* -- 4.6* | 4.6* -- -- < > 3.8 < > 3.1* CHLORIDE mEq/L -- -- -- -- 108* -- -- -- 109* -- -- -- 112* < > 111* CO2 mEq/L -- -- -- -- 25.0 -- -- -- 25.3 -- -- -- 25.0 < > 24.6 POC CO2 (CALC) mEq/L -- -- -- -- -- -- -- -- -- -- 25 -- -- -- -- BUN mg/dL -- -- -- -- 19 -- -- -- 23 -- -- -- 17 < > 12 CREATININE mg/dL -- -- -- -- 0.74 -- -- -- 0.77 -- -- -- 0.76 < > 0.68 CALCIUM mg/dL -- -- -- -- 8.8 -- -- -- 8.0* -- -- -- 8.2* < > 8.2* PROTEIN TOTAL g/dL -- -- -- -- -- -- -- -- -- -- -- -- -- -- 5.7 BILIRUBIN TOTAL mg/dL -- -- -- -- -- -- -- -- -- -- -- -- -- -- 0.70 ALK PHOS U/L -- -- -- -- -- -- -- -- -- -- -- -- -- -- 57 ALT U/L -- -- -- -- -- -- -- -- -- -- -- -- -- -- 8 AST U/L -- -- -- -- -- -- -- -- -- -- -- -- -- -- 51* GLUCOSE mg/dL -- -- -- -- 124* -- -- -- 202* -- -- -- 153* < > 156* POC GLUCOSE mg/dL 296* 175* 109* < > -- < > -- < > -- < > -- < > -- < > -- < > = values in this interval not displayed. Recent Images XR chest 1 view Result Date: 08/28/2024 EXAM: XR CHEST 1 VIEW INDICATION: Female, 68 years old Post CABG. COMPARISON: XR Chest 08/27/2024 FINDINGS: Postsurgical changes of the chest include median sternotomy wires, surgical clips and left atrial appendage clip. Lines and tubes appear stable. Lungs are uniformly expanded. There is no pneumothorax. Heart remains enlarged with slight improvement in central congestion. Persistent retrocardiac opacity noted. Bones are unchanged. 1. Stable cardiomegaly with slight improving central congestion. Retrocardiac opacity consistent with atelectasis. Small left effusion not excluded. Electronically signed by: Tasneem Villarreal MD 08/28/2024 06:19 AM [facility] Scheduled Meds acetaminophen, 1,000 mg, Oral, q6h albumin human, 25 g, Intravenous, Once aspirin EC, 81 mg, Oral, Daily brimonidine, 1 drop, Both Eyes, BID chlorhexidine, 15 mL, Mouth/Throat, 4x daily furosemide, 20 mg, Intravenous, Once heparin, 5,000 Units, Subcutaneous, q12h insulin glargine, 20 Units, Subcutaneous, Daily latanoprost, 1 drop, Both Eyes, Nightly methocarbamol, 750 mg, Oral, q8h mupirocin, 1 Application, Nasal, BID rosuvastatin, 20 mg, Oral, Nightly timolol, 1 drop, Both Eyes, BID EPINEPHrine, 1-35 mcg/min, Last Rate: 2 mcg/min (08/28/24 0700)norepinephrine, 5-70 mcg/min, Last Rate: 0.5 mcg/min (08/28/24 07) PRN medications: calcium gluconate, chlorhexidine, dextrose, dextrose, docusate sodium, glucagon, [Held by provider] HYDROmorphone, insulin lispro, magnesium sulfate, melatonin, oxyCODONE, polyethylene glycol (PEG) 3350, potassium & sodium phosphates OR potassium & sodium phosphates, potassium chloride OR potassium chloride OR potassium chloride OR Potassium chloride, sodium chloride, sodium phosphates 45 mmol in sodium chloride 0.9 % 100 mL IVPB Assessment & Plan 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 Had 2 episodes of decreased responsiveness on POD #1. Plan for carotid US and ECHO. POD # 2 C/W current supportive care Post op management as per [facility]- CT OP about 660ml in 24 hours Wean off pressors as tolerated. Diabetes mellitus, type 2 (HCC)On insulin per ICU protocol Primary hypertension Wean off pressors as tolerated Ischemic cardiomyopathyC/w medical management Acute blood loss anemia (ABLA)Intra op blood loss. Monitor and transfuse as needed. Macular degenerationResume eye gtt as appropriate Cardiogenic shock (HCC) Current Diet: Adult Diet Carbohydrate Controlled; Carb choice 1800 robert VTE Prophylaxis heparin - 5000 units/mL FRAME MOUNTER * Marci Faye MD - 08/28/2024 11:14 AM [facility] [place] Critical Care Note / History Of Present Illness: Deepthi Moore is a 68 y.o. female presenting with a history of CAD, diabetes mellitus, hypertension with associated hypertensive heart disease, and peripheral arterial disease who was found to have significant multivessel CAD on cardiac workup and presents to the ICU after undergoing CABG procedure. Daily Summary: 08/26: S/P CAB x 4 on vent support and will work on extubating. 08/27: Patient extubated yesterday without incident; gets a little lightheaded when standing up; no acute hemodynamic issues reported overnight. Yesterday became hypotensive around 7 PM and pressor needs were escalated and became more responsive. Epi 3mcg and NE 6mcg. U/O 350ml. Getting Albumin 5% 500ml. Once again, this morning, patient became unresponsive when they were setting her up. 08/28: Epi 2 + NE at 1mcg. In the setting of her repeated vasovagal events, will obtain carotid artery ultrasound and discussed with cardiology regarding possibly repeating echocardiogram to assess for any pericardial effusion as a cause for her symptoms. Labs, imaging reviewed. Results from last 7 days Lab Units 08/28/24 0742 08/28/24 0345 08/28/24 0336 08/26/24 1358 08/26/24 1259 POC SODIUM -- -- -- < > -- SODIUM mEq/L -- -- 142 < > 146* POC POTASSIUM -- -- -- < > -- POTASSIUM mEq/L -- -- 4.2 < > 3.1* CHLORIDE mEq/L -- -- 108* < > 111* CO2 mEq/L -- -- 25.0 < > 24.6 POC CO2 (CALC) -- -- -- < > -- BUN mg/dL -- -- 19 < > 12 CREATININE mg/dL -- -- 0.74 < > 0.68 CALCIUM mg/dL -- -- 8.8 < > 8.2* PROTEIN TOTAL g/dL -- -- -- -- 5.7 BILIRUBIN TOTAL mg/dL -- -- -- -- 0.70 ALK PHOS U/L -- -- -- -- 57 ALT U/L -- -- -- -- 8 AST U/L -- -- -- -- 51* GLUCOSE mg/dL -- -- 124* < > 156* POC GLUCOSE mg/dL 175* < > -- < > -- < > = values in this interval not displayed. Results from last 7 days Lab Units 08/28/24 0336 08/27/24 0738 08/27/24 0328 08/26/24 1630 WBC 10*3/uL 17.73* -- 13.37* 13.40* HEMOGLOBIN g/dL 7.7* -- 8.5* 9.7* POC HEMOGLOBIN g/dL -- 8.8* -- -- HEMATOCRIT % 24.4* -- 26.8* 29.6* POC HEMATOCRIT % -- 26.0* -- -- PLATELETS 10*3/uL 95* -- 143* 159* Physical Exam: Vitals: 08/28/24 0615 08/28/24 0630 08/28/24 0645 08/28/24 0700 BP: (!) 121/51 Pulse: 80 80 80 80 Resp: 19 (!) 26 (!) 40 (!) 34 Temp: 36.7 ?C (98.1 ?F) SpO2: 99% 98% 99% 99% ROS: Unable to obtain Gen'l: Patient lying in bed H&N: No scleral icterus or edema. No obvious JVD. Neuro: AAOx3 preoperatively per discussions with anesthesia Card: No rubs or gallops. S1 and S2 present and without overt murmurs. Pulm: Clear to auscultation B/L. No wheezes / rales / rhonchi. Abd: Soft, NT, ND. Bowel sounds present. Ext: No edema or lesions noted. PP+ Assessment and Plan: Surg: Status post CABG x 4 Routine postoperative care including extubation per protocol Monitor chest tube output Cardiac and CV surgical follow-up Neur: Postoperative pain control Syncopal episodes Per the [facility] Will obtain bilateral carotid arterial ultrasounds to assess for any concerning stenosis Discussed with cardiology regarding possibly repeating an echocardiogram Pulm: Postoperative ventilator support, resolved On supp O2 CV: History of hypertension; history of multivessel CAD now status post CABG History of ischemic cardiomyopathy with severe diastolic dysfunction Chronic congestive heart failure Meds Per the [facility] Continue vasopressors for hemodynamic support GI: No acute issues Oral diet when appropriate Renal: No acute issues Monitor urinary output and daily labs ID: No acute issues Antibiotics per postoperative protocols Heme: No acute issues Daily labs Endo: No acute issues Trend fingersticks per postoperative protocol MSK: No acute issues Ambulation with PT when appropriate GI Prophylaxis: Per the [facility] DVT Prophylaxis: Per the [facility] FRAME MOUNTER * Samira Mcknight MD - 08/27/2024 3:36 PM [facility] [employer] Cardiology Daily Progress Note: 08/27/2024 Problem List: CAD, 4 vessel s/p CABG with HELM to LAD, SVG to D1, OM1 and RCA DM 24 Events: Reviewed this morning event, Likely vasovagal episode. Patient extubated yesterday without incident; gets a little lightheaded when standing up; no acute hemodynamic issues reported overnight. Yesterday became hypotensive around 7 PM and pressor needs were escalated and became more responsive. Epi 3mcg and NE 6mcg. U/O 350ml. Getting Albumin 5% 500ml. Once again, this morning, patient became unresponsive when they were setting her up. Remains on levophed No significant arrhthymias overnight Medications: Prior to Admission Medications: Medications Prior to Admission Medication Sig Dispense Refill Last Dose/Taking aspirin EC 81 MG EC tablet Take 81 mg by mouth 1 time each day. 08/22/2024 atorvastatin (Lipitor) 40 MG tablet Take 40 mg by mouth 1 time each day. Taking brimonidine (AlphaGAN P) 0.2 % ophthalmic solution 5 mL, INSTILL 1 DROP INTO RIGHT EYE TWICE A DAY, 0 Refill(s) 08/24/2024 Morning insulin aspart (NovoLOG FLEXPEN) 100 UNIT/ML pen See Instructions, INJECT 22 UNITS SUBCUTANEOUSLY 3 TIMES A DAY BEFORE MEALS, # 60 mL, 3 Refill(s), Pharmacy: [facility], 165.1, cm, 12/26/22 15:57:00 CDT, Height, 81.364, kg, 01/07/23 9:01:00 CDT, Weight 08/24/2024 Morning Insulin Glargine (BASAGLAR KWIKPEN SC) Inject 35 Units/day under the skin in the morning and 35 Units/day in the evening. 08/24/2024 Morning latanoprost (Xalatan) 0.005 % ophthalmic solution Administer 1 drop into both eyes at bedtime. 08/23/2024 Bedtime metoprolol tartrate (Lopressor) 25 MG tablet Take 25 mg by mouth 1 time. Patient took 1/2 tab night of surgery,1/2 tab morning of surgery for CAB 08/26/2024 at 6:00 AM multivitamin (Theragran) tablet Take 1 tablet by mouth 1 time each day. 08/24/2024 Morning rosuvastatin (Crestor) 5 MG tablet Take 5 mg by mouth 1 time each day. 08/23/2024 Evening timolol (Timoptic) 0.5 % ophthalmic solution Administer 1 drop into both eyes in the morning and 1 drop in the evening. Taking chlorhexidine (Peridex) 0.12 % solution 473 mL, RINSE AND SPIT 15 ML'S TWICE DAILY AFTER BREAKFAST/BEFORE BEDTIME FOLLOWING BRUSHING AND FLOSSING, 0 Refill(s) olmesartan (BENIcar) 40 MG tablet Take 40 mg by mouth 1 time each day. Scheduled Medications: acetaminophen, 1,000 mg, Oral, q6h albumin human, 25 g, Intravenous, Once aspirin EC, 81 mg, Oral, Daily brimonidine, 1 drop, Both Eyes, BID chlorhexidine, 15 mL, Mouth/Throat, 4x daily latanoprost, 1 drop, Both Eyes, Nightly methocarbamol, 750 mg, Oral, q8h mupirocin, 1 Application, Nasal, BID rosuvastatin, 5 mg, Oral, Nightly timolol, 1 drop, Both Eyes, BID Objective: Blood pressure (!) 123/55, pulse 64, temperature 36.9 ?C (98.5 ?F), temperature source Oral, resp. rate (!) 31, height 1.651 m (5' 5"), weight 88 kg (194 lb 0.1 oz), SpO2 99%. PAP: (16-70)/(4-29) 49/17 CO: [3.7 L/min-5 L/min] 3.7 L/min CI: [1.94 L/min/m2-2.6 L/min/m2] 1.94 L/min/m2 Intake/Output Summary (Last 24 hours) at 08/27/2024 1605 Last data filed at 08/27/2024 1558 Gross per 24 hour Intake 4054 ml Output 1055 ml Net 2999 ml Physical Exam: Physical Exam General: Alert and oriented, well nourished, mild resp distress on O2 via NC Eye: PERRL, EOMI, normal conjunctiva.. HEENT: Normocephalic, moist oral mucosa, no scleral icterus, no sinustenderness. Neck: Supple, non-tender, carotid upstroke normal, No JVP. Right IJ swan inplace Lungs: Scattered crackles bases Heart: Regular rate and rhythm, normal S1/S2, no S3/S4, no murmur, no gallop,no rub. Abdomen: Soft, non-tender, non-distended, normal bowel sounds, no masses. Extremities: 1+ B/L lower extremity edema, no cyanosis, no clubbing, bilateral upper and lower extremity pulses 2+ Skin: Skin is warm, dry and pink, no rashes or lesions. Neurologic: Awake, alert, and oriented X3, grossly intact. Psychiatric: Cooperative, appropriate mood and affect.. Labs: Reviewed Cardiovascular Studies: EKG or Telemetry in the past 24 hours: No significant events. Echocardiogram: 06/24/24 1. Technically difficult study.2. Normal in size left atrium. 3. Left ventricular wall thickness is moderately increased. 4. Normal left ventricular systolic function. 5. Estimated left ventricular ejection fraction is 55 to 60%. 6. LV diastolic function is mildly abnormal (Grade I). 7. Right ventricular systolic function is normal. 8. Mild aortic valve stenosis. 9. Mild mitral stenosis. 10. Mild to moderate mitral valve regurgitation. 11. No flow detected by color Doppler across atrial septum. Cardiac Biomarkers (Troponin T and BNP) reviewed 08/27/2024 Basic metabolic panel reviewed 08/27/2024 Assessment/Plan: Deepthi Moore is a 68 y.o. female patient with known PMH of CAD, hypertensive cardiomyopathy, DM-II, HLD, PAD admitted for CABG. CAD: 4 vessel CABG [id number], No active chest pain. Reviewed hemodynamics, Still on Levophed. C/w ASA and statin therapy. 2. Dyslipidemia:High intensity statin therapy. Crestor 20 mg oral daily. 3. DM-II: on Inuslin regimen and SSI 4. Cardiomyopathy: Ischemic, LVEF 45-50%,Currently on pressor support.Once off pressor support start core measures, Cardiomyopathy meds. Wean Pressor support as per ICU and CV team. Discussed with patient and son at bed side. Thank you for allowing us to participate in the care of your patient. Samira Mcknight MD, [facility] Cardiovascular Medicine [address], [facility] This note has been created through the use of voice recognition/textcompilation software. Typographical and content errors may occur with this process FRAME MOUNTER * Christal Bliss MD - 08/27/2024 2:17 PM RUG FRAME MOUNTER [facility] Hospitalist Progress Note Subjective Patient seen and examined in the CVICU. is at the bedside. Patient is s/p CABG 08/26, was extubated overnight. Had intermittent episodes of low BP (x 2). Reports surgical site pain. Objective Last Recorded Vitals Blood pressure (!) 123/55, pulse 64, temperature 36.5 ?C (97.7 ?F), temperature source Oral, resp. rate (!) 31, height 1.651 m (5' 5"), weight 88 kg (194 lb 0.1 oz), SpO2 99%. Physical Exam: General: Awake and alert, in no acute distress HEENT: Normocephalic, atraumatic, neck is supple CVS: S1S2 normal, RRR, Midline surgical incision with dressing in place, chest tubes and pacer wires noted. Lungs: GUANAKITO with decreased BS at the lung bases Abdomen: Soft, NT, ND, normoactive bowel sounds, Graff cath in place Extremities: No pedal edema Neuro: AO x 3, no new focal neuro deficit Psych: Appropriate mood, affect is calm Results: Results from last 7 days Lab Units 08/27/24 0738 08/27/24 0328 08/26/24 1630 08/26/24 1311 WBC 10*3/uL -- 13.37* 13.40* 20.66* HEMOGLOBIN g/dL -- 8.5* 9.7* 10.5* POC HEMOGLOBIN g/dL 8.8* -- -- -- HEMATOCRIT % -- 26.8* 29.6* 31.8* POC HEMATOCRIT % 26.0* -- -- -- PLATELETS 10*3/uL -- 143* 159* 159* PLATELETS ESTIMATED -- -- -- Normal Results from last 7 days Lab Units 08/27/24 1341 08/27/24 1239 08/27/24 1049 08/27/24 0939 08/27/24 0738 08/27/24 0724 08/27/24 0408 08/27/24 0328 08/26/24 1718 08/26/24 1630 08/26/24 1358 08/26/24 1259 POC SODIUM mEq/L -- -- -- -- 147* -- -- -- -- -- -- -- SODIUM mEq/L -- -- -- -- -- -- -- 147* -- 149* -- 146* POC POTASSIUM mEq/L -- -- -- -- 3.6 -- -- -- -- -- -- -- POTASSIUM mEq/L -- -- -- -- -- 3.8 -- 3.8 < > 3.3* | 3.3* -- 3.1* CHLORIDE mEq/L -- -- -- -- -- -- -- 112* -- 110* -- 111* CO2 mEq/L -- -- -- -- -- -- -- 25.0 -- 26.7 -- 24.6 POC CO2 (CALC) mEq/L -- -- -- -- 25 -- -- -- -- -- -- -- BUN mg/dL -- -- -- -- -- -- -- 17 -- 14 -- 12 CREATININE mg/dL -- -- -- -- -- -- -- 0.76 -- 0.72 -- 0.68 CALCIUM mg/dL -- -- -- -- -- -- -- 8.2* -- 7.9* -- 8.2* PROTEIN TOTAL g/dL -- -- -- -- -- -- -- -- -- -- -- 5.7 BILIRUBIN TOTAL mg/dL -- -- -- -- -- -- -- -- -- -- -- 0.70 ALK PHOS U/L -- -- -- -- -- -- -- -- -- -- -- 57 ALT U/L -- -- -- -- -- -- -- -- -- -- -- 8 AST U/L -- -- -- -- -- -- -- -- -- -- -- 51* GLUCOSE mg/dL -- -- -- -- -- -- -- 153* -- 207* -- 156* POC GLUCOSE mg/dL 147* 170* 144* < > -- -- < > -- < > -- < > -- < > = values in this interval not displayed. Recent Images XR chest 1 view Result Date: 08/27/2024 EXAMINATION: XR CHEST 1 VIEW HISTORY: Post CABG. COMPARISON: XR Chest 08/26/2024 COMMENT: Patient has been extubated and NG tube removed. Other support devices appear stable. The heart remains enlarged. There is increased hazy opacities bilaterally and slight increased left effusion. No pneumothorax with left chest tube in place. 1. Patient has been extubated and NG tube removed. 2. Increased pulmonary edema and left effusion. Electronically signed by: Neeta Santos MD 08/27/2024 08:21 AM [facility] Scheduled Meds acetaminophen, 1,000 mg, Oral, q6h albumin human, 25 g, Intravenous, Once aspirin EC, 81 mg, Oral, Daily chlorhexidine, 15 mL, Mouth/Throat, 4x daily methocarbamol, 750 mg, Oral, q8h mupirocin, 1 Application, Nasal, BID rosuvastatin, 5 mg, Oral, Nightly timolol, 1 drop, Both Eyes, BID EPINEPHrine, 1-35 mcg/min, Last Rate: 2 mcg/min (08/27/24 0700)insulin regular, 0-35 Units/hr, Last Rate: 6 Units/hr (08/27/24 1354) norepinephrine, 5-70 mcg/min, Last Rate: 6 mcg/min (08/27/24 0700) PRN medications: calcium gluconate, chlorhexidine, dextrose, dextrose, docusate sodium, glucagon, HYDROmorphone, magnesium sulfate, melatonin, oxyCODONE, polyethylene glycol (PEG) 3350, potassium & sodium phosphates OR potassium & sodium phosphates, potassium chloride OR potassium chloride OR potassium chloride OR Potassium chloride, sodium phosphates 45 mmol in sodium chloride 0.9 % 100 mL IVPB Assessment Assessment & Plan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 POD # 1 C/W current supportive care Post op management as per CV[facility] Wean off pressors as toelrated Diabetes mellitus, type 2 (HCC) On insulin per ICU protocol Primary hypertension Wean off pressors as tolerated Ischemic cardiomyopathyC/w medical management Acute blood loss anemia (ABLA)Intra op blood loss. Monitor and transfuse as needed. Macular degenerationResume eye gtt as appropriate Current Diet: Adult Diet Carbohydrate Controlled; Carb choice 1800 robert VTE Prophylaxis This patient does not have an active medication from one of the medication groupers. Disposition:CW inpt care Plan of care was d/w patient and at the bedside.Also d/w RN and Dr. Lucas. FRAME MOUNTER * Azra Bull[facility]-CONTROL TOWER OPERATOR - 08/27/2024 9:58 AM RUG FRAME MOUNTER Images from the original note were not included. [facility] CONTROL TOWER OPERATOR CLINICAL SWALLOWING EVALUATION (CSE) Patient Name: Deepthi Moore Today's Date: 08/27/2024 Time in: 918 Time out: 930 Room: [address] [place] [address]* CLINICAL SWALLOW EVALUATION SUMMARY: PATRICIA Li cleared CONTROL TOWER OPERATOR for entry. NO clinical indicators of oropharyngeal dysphagia or airway invasion. Appears safe to advance diet with general swallow precautions. RECOMMENDATIONS: Level 0- Thin Liquids and Level 7- Regular diet Medications: As tolerated Swallow Precautions: Alternate liquids/solids, Feed only when alert, Oral hygiene after meals, Remain upright after meals 30 minutes, Upright to 90 degrees, Small bites/sips Supervision Recommended: Set-up Oral care: Regular toothbrush No further skilled CONTROL TOWER OPERATOR intervention PROGNOSIS: Excellent PLAN: No skilled CONTROL TOWER OPERATOR intervention GENERAL INFORMATION:Reason for Consult: Pt was referred for a clinical swallow evaluation in the setting of recent CABG. Oxygenation: nasal cannula Behavior:Cooperative Level of Consciousness: Awake & alert Pain: 0 Diet Prior to this Evaluation: Level 0- Thin Liquids and Level 7- Regular diet Preferred Language: [place] Transformation Specialist: n/a ORAL MOTOR EXAM:Dentition: Adequate Face: Within Functional Limits Jaw: Within Functional Limits Lips: Within Functional Limits Tongue: Within Functional Limits Soft Palate: Within Functional Limits Larynx: Within Functional Limits Involuntary Muscular Movement: Absent SWALLOW ASSESSMENT:Clinical Swallow Evaluation Patient Positioning: Reclined, In bed Previous History of Dysphagia?: No Inability to Follow One Step Directions?: No Tracheostomy Present: No Inability to Manage Their Secretions?: No Incomplete Lingual ROM?: No Incomplete Facial Symmetry (Facial Droop)?: No Voice Change During Swallowing Trials?: No Abnormal/Weak Volitional Cough?: No Cough/Throat Clear w/ Trial Consistency?: No Dysphonia (Quality and/or Pitch Change)?: No Motor Speech Disorder (Dysarthria/Apraxia)?: No Apraxia of the Swallow Suspected?: No Delayed Swallow Suspected?: No Multiple Swallows Per Bolus Suspected?: No Tongue Pumping Suspected?: No OUTCOME MEASURES:International Dysphagia Diet Standardization Initiative - IDDSI Solids - 7 - Regular Liquids - 0 - Thin IDDSI Level - 8 GOALS:n/a EDUCATION:Education Documentation Dietary Recommendations, taught by ANGELIC Zheng at 08/27/2024 9:55 AM. Learner: Family, Patient Readiness: Acceptance Method: Explanation Response: Verbalizes Understanding Swallowing Strategies, taught by ANGELIC Zheng at 08/27/2024 9:55 AM. Learner: Family, Patient Readiness: Acceptance Method: Explanation Response: Verbalizes Understanding Speech-Language/Pathology Treatment Plan, taught by ANGELIC Zheng at 08/27/2024 9:55 AM. Learner: Family, Patient Readiness: Acceptance Method: Explanation Response: Verbalizes Understanding Results of Exam, taught by ANGELIC Zheng at 08/27/2024 9:55 AM.Learner: Family, Patient Readiness: Acceptance Method: Explanation Response: Verbalizes Understanding Education CommentsNo comments found. If this is the last documented treatment, then it will signify discharge from acute care prior to discharge from the therapy service and will serve as the discharge summary. Therapy discharge recommendations are made by determining the patient's prior level of function, assessing current function level and establishing rehab potential. The overall discharge plan may be affected by input from Physicians, Care Coordination, medical condition/status, family support and insurance benefits. ANGELIC Zheng FRAME MOUNTER * Marci Faye MD - 08/27/2024 8:38 AM RUG FRAME MOUNTER [place] Critical Care Note / History Of Present Illness: Deepthi Moore is a 68 y.o. female presenting with a history of CAD, diabetes mellitus, hypertension with associated hypertensive heart disease, and peripheral arterial disease who was found to have significant multivessel CAD on cardiac workup and presents to the ICU after undergoing CABG procedure. Daily Summary: 08/26: S/P CAB x 4 on vent support and will work on extubating. 08/27: Patient extubated yesterday without incident; gets a little lightheaded when standing up; no acute hemodynamic issues reported overnight. Yesterday became hypotensive around 7 PM and pressor needs were escalated and became more responsive. Epi 3mcg and NE 6mcg. U/O 350ml. Getting Albumin 5% 500ml. Once again, this morning, patient became unresponsive when they were setting her up. Labs, imaging reviewed. Results from last 7 daysLab Units 08/27/24 0738 08/27/24 0724 08/27/24 0707 08/27/24 0408 08/27/24 0328 08/26/24 1358 08/26/24 1259 POC SODIUM mEq/L 147* -- -- -- -- -- -- SODIUM mEq/L -- -- -- -- 147* < > 146* POC POTASSIUM mEq/L 3.6 -- -- -- -- -- -- POTASSIUM -- < > -- -- 3.8 < > 3.1* CHLORIDE mEq/L -- -- -- -- 112* < > 111* CO2 mEq/L -- -- -- -- 25.0 < > 24.6 POC CO2 (CALC) mEq/L 25 -- -- -- -- -- -- BUN mg/dL -- -- -- -- 17 < > 12 CREATININE mg/dL -- -- -- -- 0.76 < > 0.68 CALCIUM mg/dL -- -- -- -- 8.2* < > 8.2* PROTEIN TOTAL g/dL -- -- -- -- -- -- 5.7 BILIRUBIN TOTAL mg/dL -- -- -- -- -- -- 0.70 ALK PHOS U/L -- -- -- -- -- -- 57 ALT U/L -- -- -- -- -- -- 8 AST U/L -- -- -- -- -- -- 51* GLUCOSE mg/dL -- -- -- -- 153* < > 156* POC GLUCOSE mg/dL -- -- 130* < > -- < > -- < > = values in this interval not displayed. Results from last 7 daysLab Units 08/27/24 0738 08/27/24 0328 08/26/24 1630 08/26/24 1311 WBC 10*3/uL -- 13.37* 13.40* 20.66* HEMOGLOBIN g/dL -- 8.5* 9.7* 10.5* POC HEMOGLOBIN g/dL 8.8* -- -- -- HEMATOCRIT % -- 26.8* 29.6* 31.8* POC HEMATOCRIT % 26.0* -- -- -- PLATELETS 10*3/uL -- 143* 159* 159* PLATELETS ESTIMATED -- -- -- Normal Physical Exam: Vitals:08/27/24 0715 08/27/24 0729 08/27/24 0800 08/27/24 0810 BP: (!) 127/48 Pulse: 75 75 78 Resp: (!) 28 (!) 25 (!) 24 Temp: 36.8 ?C (98.3 ?F) SpO2: 98% 99% 97% ROS: Unable to obtain Gen'l: Patient lying in bedH&N: No scleral icterus or edema. No obvious JVD. Neuro: AAOx3 preoperatively per discussions with anesthesia Card: No rubs or gallops. S1 and S2 present and without overt murmurs. Pulm: Clear to auscultation B/L. No wheezes / rales / rhonchi. Abd: Soft, NT, ND. Bowel sounds present. Ext: No edema or lesions noted. PP+ Assessment and Plan: Surg: Status post CABG x 4Routine postoperative care including extubation per protocol Monitor chest tube output Cardiac and CV surgical follow-up Neur: Postoperative pain controlPer the [facility] Pulm: Postoperative ventilator support, resolvedOn supp O2 CV: History of hypertension; history of multivessel CAD now status post CABG History of ischemic cardiomyopathy with severe diastolic dysfunction Chronic congestive heart failure Meds Per the [facility] Continue vasopressors for hemodynamic support Volume per daily summary GI: No acute issuesOral diet when appropriate Renal: No acute issuesMonitor urinary output and daily labs ID: No acute issuesAntibiotics per postoperative protocols Heme: No acute issuesDaily labs Endo: No acute issuesTrend fingersticks per postoperative protocol MSK: No acute issuesAmbulation with PT when appropriate GI Prophylaxis: [facility] Prophylaxis: Per the [facility]2025-03-12 18:45:08Scheduled Orders Scheduled Referrals Name Type Priority Associated Diagnoses Order Schedule OP Referral to Wound Clinic Outpatient Referral Routine Once for 1 Occurrences starting 08/26/2024 until 08/26/2024 Cardiac Rehabilitation Phase II Referral Outpatient Referral Routine 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 S/P coronary artery bypass graft x 4 Expected: 08/29/2024 (Approximate), Expires: 08/29/2025 Ambulatory referral to Cardiothoracic Surgery Outpatient Referral Routine S/P coronary artery bypass graft x 4 Expected: 09/07/2024 (Approximate), Expires: 09/07/2025 Health Maintenance Due Date Last Done Comments CT Colonography 1955 Colonoscopy 1955 Colorectal Cancer Screening 1955 FIT-DNA 1955 FIT 1955 FOBT 1955 Medicare Annual Wellness (AWV) 1955 Sigmoidoscopy 1955 Diabetes: Foot Exam 10/17/1965 Respiratory Syncytial Virus (RSV) or >=60 (1 - Risk 60-74 years 1-dose series) 2015 Pneumococcal Vaccine: 50+ Years (2 of 2 - PCV) 02/19/2018 02/19/2017 Diabetes: Retinopathy Screening 09/19/2023 09/18/2022, 03/17/2022, 11/07/2021 Diabetes: Urine Protein Screening 01/08/2024 01/07/2023, 09/30/2022, 06/11/2021 Influenza Vaccine (#1) 2024 , 05/04/2022, 04/01/2018 Zoster Vaccines (3 of 3) 04/12/2024 02/16/2024, 01/28 Diabetes: Hemoglobin A1C 11/22/2024 025, 06/24/2024, 01/07/2023, Additional history exists Lipid Panel 08/25/2025 08/25/2024, 05/30, 09/30/2022, Additional history exists Mammogram 05/10/2026 05/10/2024, 09/19/2021 DTaP/Tdap/Td Vaccines (2 - Td or Tdap) 02/19/2027 02/19/2017, 11/13/2008 Bone Density Scan Completed 04/18/2021, 04/18/2021 HIB Vaccines Aged Out No longer eligi ble based on patient's age to complete this topic HPV Vaccines Aged Out No longer eligi ble based on patient's age to complete this topic Hepatitis A Vaccines Aged Out No long er eligible based on patient's age to complete this topic Hepatitis B Vaccines Aged Out No long er eligible based on patient's age to complete this topic IPV Vaccines Aged Out No longer eligi ble based on patient's age to complete this topic Meningococcal Vaccine Aged Out No berta juli eligible based on patient's age to complete this topic Rotavirus Vaccines Aged Out No longer eligible based on patient's age to complete this topic [id number] 18:45:08 [id number] 18:45:08 Diagnosis 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 Heart disease Unspecified heart disease 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 Diabetes mellitus, type 2 (HCC) Type II or unspecified type diabetes mellitus without mention of complication, not stated as uncontrolled Primary hypertension Unspecified essential hypertension Ischemic cardiomyopathy Other specified forms of chronic ischemic heart disease Acute blood loss anemia (ABL A) Macular degeneration Macular degeneration (senile) of retina, unspecified Cardiogenic shock (HCC) Cardiogenic shock Acute post-operative pain Superficial vein thrombosis Acute venous embolism and thrombosis of other specified veins [id number] 18:45:08 [facility] [id number] 18:10:56 Images from the original note were not included. [id number] Methocarbamol Brand Name(s): Robaxin?; also available generically WHY is this medicine prescribed? Methocarbamol is used with rest, physical therapy, and other measures to relax muscles and relieve pain and discomfort caused by strains, sprains, and other muscle injuries. Methocarbamol is in a class of medications called muscle relaxants. It works by slowing activity in the nervous system to allow the body to relax HOW should this medicine be used? Methocarbamol comes as a tablet to take by mouth. It usually is taken four times a day at first, then it may be changed to three to six times a day. Follow the directions on your prescription label carefully, and ask your doctor or pharmacist to explain any part you do not understand. Take methocarbamol exactly as directed. Do not take more or less of it or take it more often than prescribed by your doctor. Are there OTHER USES for this medicine? This medication may be prescribed for other uses. Ask your doctor or pharmacist for more information. What SPECIAL PRECAUTIONS should I follow? Before taking methocarbamol, ? tell your doctor and pharmacist if you are allergic to methocarbamol, any other medications or any of the ingredients in methocarbamol tablets. Ask your doctor or pharmacist for a list of the ingredients. ? tell your doctor and pharmacist what prescription and nonprescription medications, vitamins, nutritional supplements, and herbal products you are taking or plan to take while taking methocarbamol. Your doctor may need to change the doses of your medications or monitor you carefully for side effects. ? tell your doctor if you are , plan to become , or are breast-feeding. If you become while taking methocarbamol, call your doctor. ? talk to your doctor about the risks and benefits of taking methocarbamol if you are 65 years of age or older. Older adults should not usually take methocarbamol because it is not as safe or as effective as other medications that can be used to treat the same condition. ? you should know that this medication may make you drowsy. Do not drive a car or operate machinery until you know how methocarbamol affects you. ? talk to your doctor about the safe use of alcohol during your treatment with this medication. Alcohol can make the side effects of methocarbamol worse. What SPECIAL DIETARY instructions should I follow? Unless your doctor tells you otherwise, continue your normal diet. What should I do IF I FORGET to take a dose? Take the missed dose as soon as you remember it. However, if it is almost time for the next dose, skip the missed dose and continue your regular dosing schedule. Do not take a double dose to make up for a missed one. What SIDE EFFECTS can this medicine cause? If you experience either of the following symptoms, call your doctor immediately: ? rash ? itching Methocarbamol may cause other side effects. Call your doctor if you have any unusual problems while you are taking this medication. If you experience a serious side effect, you or your doctor may send a report to the Food and Drug Administration's (FDA) MedWatch Adverse Event Reporting program online (https://www.fda.gov/Safety/MedWatch) or by phone ( ). What should I know about STORAGE and DISPOSAL of this medication? Keep this medication in the container it came in, tightly closed, and out of reach of children. Store it at room temperature and away from excess heat and moisture (not in the bathroom). Unneeded medications should be disposed of in special ways to ensure that pets, children, and other people cannot consume them. However, you should not flush this medication down the toilet. Instead, the best way to dispose of your medication is through a medicine take-back program. Talk to your pharmacist or contact your local garbage/recycling department to learn about take-back programs in your community. See the FDA's Safe Disposal of Medicines website (https://goo.gl/c4Rm4p) for more information if you do not have access to a take-back program. It is important to keep all medication out of sight and reach of children as many containers (such as weekly pill minders and those for eye drops, creams, patches, and inhalers) are not child-resistant and young children can open them easily. To protect young children from poisoning, always lock safety caps and immediately place the medication in a safe location - one that is up and away and out of their sight and reach. https://www.upandaway.org What should I do in case of OVERDOSE? In case of overdose, call the poison control helpline at . Information is also available online at https://www.poisonhelp.org/help. If the victim has collapsed, had a seizure, has trouble breathing, or can't be awakened, immediately call emergency services at [phone]. What OTHER INFORMATION should I know? Keep all appointments with your doctor. Do not let anyone else take your medication. Ask your pharmacist any questions you have about refilling your prescription. It is important for you to keep a written list of all of the prescription and nonprescription (vwls-psi-lffqlgg) medicines you are taking, as well as any products such as vitamins, minerals, or other dietary supplements. You should bring this list with you each time you visit a doctor or if you are admitted to a hospital. It is also important information to carry with you in case of emergencies. This report on medications is for your information only, and is not considered individual patient advice. Because of the changing nature of drug information, please consult your physician or pharmacist about specific clinical use. [employer] [employer] represents that the information provided hereunder was formulated with a reasonable standard of care, and in conformity with professional standards in the field. [employer] [place] [employer] makes no representations or warranties, express or implied, including, but not limited to, any implied warranty of merchantability and/or fitness for a particular purpose, with respect to such information and specifically disclaims all such warranties. Users are advised that decisions regarding drug therapy are complex medical decisions requiring the independent, informed decision of an appropriate health care transitions nurse, and the information is provided for informational purposes only. The entire monograph for a drug should be reviewed for a thorough understanding of the drug's actions, uses and side effects. The [employer] does not endorse or recommend the use of any drug. The information is not a substitute for medical care. AHFS? Patient Medication Information?. ? Copyright, 2023. [employer]?, [address], [address], [place], [place]. All Rights Reserved. Duplication for commercial use must be authorized by [facility]. Selected Revisions: February 10, 2017. AHFS? Patient Medication Information?. ? Copyright, 2024 [facility]2025-03-12 18:10:42 Images from the original note were not included. [id number] Potassium Brand Name(s): Glu-K?, K+ 10?, K+ 8?, K+ Care?, K+ Care? Effervescent Tablets, Kaochlor? 10%, Kaon? Elixir, Kaon-Cl? 20% Elixir, Kaon-Cl-10?, Meghana Ciel?, K-Dur? 10, K-Dur? 20, K-Cristina?, Klor-Con? 10, Klor-Con? 8, Klor-Con? Powder, Klor-Con?/25 Powder, Klor-Con?/EF, Klotrix?, K-Lyte/CL? 50 Effervescent Tablets, K-Lyte/CL? Effervescent Tablets, K-Lyte? DS Effervescent Tablets, K-Lyte? Effervescent Tablets, K-Tab? Filmtab?, Micro-K?, Quic-K?, Rum-K?, Slow-K?, Tri-K?, Twin-K?; also available generically KCl WHY is this medicine prescribed? Potassium is essential for the proper functioning of the heart, kidneys, muscles, nerves, and digestive system. Usually the food you eat supplies all of the potassium you need. However, certain diseases (e.g., kidney disease and gastrointestinal disease with vomiting and diarrhea) and drugs, especially diuretics ('water pills'), remove potassium from the body. Potassium supplements are taken to replace potassium losses and prevent potassium deficiency. This medication is sometimes prescribed for other uses; ask your doctor or pharmacist for more information. HOW should this medicine be used? Potassium comes in oral liquid, powder, granules, effervescent tablets, regular tablets, extended-release (long-acting) tablets, and extended-release capsules. It usually is taken two to four times a day, with or immediately after meals. Follow the directions on your prescription label carefully, and ask your doctor or pharmacist to explain any part you do not understand. Take potassium exactly as directed. Do not take more or less of it or take it more often than prescribed by your doctor. Take all forms of potassium with a full glass of water or fruit juice. Add the liquid to water. Dissolve the powder, granules, or effervescent tablets in cold water or fruit juice according to the rapier insertion loom fixer's directions or the directions on your prescription label; mix the drug well just before you take it. Cold liquids help mask the unpleasant taste. Swallow extended-release tablets and capsules whole. Do not chew them or dissolve them in your mouth. What SPECIAL PRECAUTIONS should I follow? Before taking potassium, ? tell your doctor and pharmacist if you are allergic to potassium or any other drugs. ? some medications should not be taken with potassium. Other medications may cause dosing changes or extra monitoring when taken with potassium. Make sure you have discussed any medications you are currently taking or plan to take before starting potassium with your doctor and pharmacist. Before starting, stopping, or changing any medications while taking potassium, please get the advice of your doctor or pharmacist.. ? tell your doctor if you have or have ever had heart, kidney, or [place]'s (adrenal gland) disease. ? tell your doctor if you are , plan to become , or are breast-feeding. If you become while taking potassium, call your doctor. ? if you are having surgery, including dental surgery, tell the doctor or dentist that you are taking potassium. What SPECIAL DIETARY instructions should I follow? If you are using a salt substitute, tell your doctor. Many salt substitutes contain potassium. Your doctor will consider this source in determining your dose of potassium supplement. Your doctor may advise you to use a potassium-containing salt substitute and to eat potassium-rich foods (e.g., bananas, prunes, raisins, and milk). What should I do IF I FORGET to take a dose? Take the missed dose as soon as you remember it and take any remaining doses for that day at evenly spaced intervals. Do not take a double dose to make up for a missed one. What SIDE EFFECTS can this medicine cause? If you experience any of the following symptoms, call your doctor immediately: ? mental confusion ? listlessness ? tingling, prickling, burning, tight, or pulling sensation of arms, hands, legs, or feet ? heaviness or weakness of legs ? cold, pale, herrera skin ? stomach pain ? unusual stomach bulging ? black stools If you experience a serious side effect, you or your doctor may send a report to the Food and Drug Administration's (FDA) MedWatch Adverse Event Reporting program online (https://www.fda.gov/Safety/MedWatch) or by phone ( ). What should I know about STORAGE and DISPOSAL of this medication? Keep this medication in the container it came in, tightly closed, and out of reach of children. Store it at room temperature and away from excess heat and moisture (not in the bathroom). Unneeded medications should be disposed of in special ways to ensure that pets, children, and other people cannot consume them. However, you should not flush this medication down the toilet. Instead, the best way to dispose of your medication is through a medicine take-back program. Talk to your pharmacist or contact your local garbage/recycling department to learn about take-back programs in your community. See the FDA's Safe Disposal of Medicines website (https://goo.gl/c4Rm4p) for more information if you do not have access to a take-back program. It is important to keep all medication out of sight and reach of children as many containers (such as weekly pill minders and those for eye drops, creams, patches, and inhalers) are not child-resistant and young children can open them easily. To protect young children from poisoning, always lock safety caps and immediately place the medication in a safe location - one that is up and away and out of their sight and reach. https://www.upandaway.org What should I do in case of OVERDOSE? In case of overdose, call the poison control helpline at . Information is also available online at https://www.poisonhelp.org/help. If the victim has collapsed, had a seizure, has trouble breathing, or can't be awakened, immediately call emergency services at [phone]. What OTHER INFORMATION should I know? Keep all appointments with your doctor and the laboratory. Your doctor will order certain lab tests to check your response to potassium. You may have electrocardiograms (EKGs) and blood tests to see if your dose needs to be changed. Do not let anyone else take your medication. Ask your pharmacist any questions you have about refilling your prescription. It is important for you to keep a written list of all of the prescription and nonprescription (gceg-zno-rdidtnw) medicines you are taking, as well as any products such as vitamins, minerals, or other dietary supplements. You should bring this list with you each time you visit a doctor or if you are admitted to a hospital. It is also important information to carry with you in case of emergencies. This report on medications is for your information only, and is not considered individual patient advice. Because of the changing nature of drug information, please consult your physician or pharmacist about specific clinical use. [employer] [place] [employer] represents that the information provided hereunder was formulated with a reasonable standard of care, and in conformity with professional standards in the field. [employer] [place] [employer] makes no representations or warranties, express or implied, including, but not limited to, any implied warranty of merchantability and/or fitness for a particular purpose, with respect to such information and specifically disclaims all such warranties. Users are advised that decisions regarding drug therapy are complex medical decisions requiring the independent, informed decision of an appropriate health care transitions nurse, and the information is provided for informational purposes only. The entire monograph for a drug should be reviewed for a thorough understanding of the drug's actions, uses and side effects. The [place] [employer] does not endorse or recommend the use of any drug. The information is not a substitute for medical care. AHFS? Patient Medication Information?. ? Copyright, 2023. [employer]?, [address], [address], [place], [place]. All Rights Reserved. Duplication for commercial use must be authorized by [facility]. Selected Revisions: December 17, 2023. AHFS? Patient Medication Information?. ? Copyright, 2024 [facility]2025-03-12 18:10:37 Images from the original note were not included. [id number] Insulin Glargine (rDNA origin) Injection Brand Name(s): Basaglar?, Lantus?, Rezvoglar? (Insulin Glargine-aglr), Semglee? (Insulin Glargine-yfgn), Toujeo?, Soliqua? (as a combination product containing Insulin Glargine and Lixisenatide), WHY is this medicine prescribed? Insulin glargine products are used to treat type 1 diabetes (condition in which the body does not produce insulin and therefore cannot control the amount of sugar in the blood). Insulin glargine products are also used to treat people with type 2 diabetes (condition in which the body does not use insulin normally and, therefore, cannot control the amount of sugar in the blood) who need insulin to control their diabetes. In people with type 1 diabetes, insulin glargine products must be used with another type of insulin (a short-acting insulin). In people with type 2 diabetes, insulin glargine products also may be used with another type of insulin or with oral medication(s) for diabetes. Insulin glargine is a long-acting, synthetic version of human insulin. Insulin glargine products work by replacing the insulin that is normally produced by the body and by helping move sugar from the blood into other body tissues where it is used for energy. It also stops the liver from producing more sugar. Over time, people who have diabetes and high blood sugar can develop serious or life-threatening complications, including heart disease, stroke, kidney problems, nerve damage, and eye problems. Using medication(s), making lifestyle changes (e.g., diet, exercise, quitting smoking), and regularly checking your blood sugar may help to manage your diabetes and improve your health. This therapy may also decrease your chances of having a heart attack, stroke, or other diabetes-related complications such as kidney failure, nerve damage (numb, cold legs or feet; decreased sexual ability in men and women), eye problems, including changes or loss of vision, or gum disease. Your doctor and other healthcare providers will talk to you about the best way to manage your diabetes. HOW should this medicine be used? Insulin glargine products come as a solution (liquid) to inject subcutaneously (under the skin). They are injected once a day. You should use insulin glargine products at the same time every day. Follow the directions on your prescription label carefully, and ask your doctor or pharmacist to explain any part you do not understand. Use insulin glargine products exactly as directed. Do not use more or less of it or use it more often than prescribed by your doctor. Never use insulin glargine products when you have symptoms of hypoglycemia (low blood sugar) or if you have checked your blood sugar and found it to be low. Insulin glargine products control diabetes but do not cure it. Continue to use insulin glargine products even if you feel well. Do not stop using insulin glargine products without talking to your doctor. Do not switch to another brand or type of insulin or change the dose of any type of insulin you are using without talking to your doctor. Always check the insulin label to make sure you received the right type of insulin from the pharmacy. Insulin glargine products come in vials and in dosing pens that contain cartridges of medication. Be sure you know what type of container your insulin glargine product comes in and what other supplies, such as needles, syringes, or pens, you will need to inject your medication. If your insulin glargine product comes in vials, you will need to use syringes to inject your dose. Ask your doctor or pharmacist to show you how to inject insulin glargine using a syringe. Ask your doctor or pharmacist if you have questions about the type of syringe you should use. If your insulin glargine product comes in pens, be sure to read and understand the rapier insertion loom fixer's instructions. Ask your doctor or pharmacist to show you how to use the pen. Follow the directions carefully, and always perform the safety test before use. Never reuse needles or syringes and never share needles, syringes, or pens. If you are using an insulin pen, always remove the needle right after you inject your dose. Discard needles and syringes in a puncture-resistant container. Ask your doctor or pharmacist how to dispose of the puncture-resistant container. Do not dilute insulin glargine products and do not mix insulin glargine products with any other type of insulin. You can inject your insulin glargine in your upper arm, thigh, or stomach. Never inject insulin glargine into a vein or muscle. Do not inject where the skin is thick, lumpy, tender, bruised, scaly, or hard, or into areas of skin where there are scars or skin is damaged. Change (rotate) the injection site within the chosen area with each dose; try to avoid injecting the same site more often than once every 1 to 2 weeks. Always check your insulin glargine product label to make sure you are using the correct insulin and look at your insulin glargine product before you inject it. It should be clear and colorless. Do not use your insulin glargine product if it is colored, cloudy, or contains solid particles, or if the expiration date on the bottle has passed. Do not use insulin glargine products in an external insulin pump. Ask your pharmacist or doctor for a copy of the rapier insertion loom fixer's information for the patient. Are there OTHER USES for this medicine? This medication may be prescribed for other uses; ask your doctor or pharmacist for more information. What SPECIAL PRECAUTIONS should I follow? Before using insulin glargine products, ? tell your doctor and pharmacist if you are allergic to insulin (Humulin, Novolin, others), insulin glargine, any other medications, or any of the ingredients of insulin glargine products. Ask your pharmacist for a list of the ingredients. ? tell your doctor and pharmacist what prescription and nonprescription medications, vitamins, nutritional supplements, and herbal products you are taking. Be sure to mention pioglitazone (Actos, in Actoplus Met, in Duetact, in Oseni) and rosiglitazone (Avandia). Your doctor may need to change the doses of your medications or monitor you carefully for side effects. ? tell your doctor if you have or have ever had nerve damage caused by your diabetes; heart failure; low blood levels of potassium; vision problems; or any other medical conditions, including heart, liver or kidney disease. ? tell your doctor if you are , plan to become , or are . If you become while using an insulin glargine product, call your doctor. ? if you are having surgery, including dental surgery, tell the doctor or dentist that you are using an insulin glargine product. ? alcohol may cause a change in blood sugar. Ask your doctor about the safe use of alcoholic beverages while you are using an insulin glargine product. ? ask your doctor what to do if you get sick, experience unusual stress, or change your diet, exercise, or activity schedule. These changes can affect your blood sugar and the amount of insulin you will need. ? ask your doctor how often you should check your blood sugar. Be aware that hypoglycemia may affect your ability to perform tasks such as driving and ask your doctor if you need to check your blood sugar before driving or operating machinery. What SPECIAL DIETARY instructions should I follow? Be sure to follow all exercise and dietary recommendations made by your doctor or dietitian. It is important to eat a healthful diet and to eat about the same amounts of the same kinds of food at about the same times each day. Skipping or delaying meals or changing the amount or kind of food you eat can cause problems with your blood sugar control. What should I do IF I FORGET to take a dose? Before you start using an insulin glargine product, ask your doctor what to do if you forget to use a dose or if you accidentally use an extra dose. Write these directions down so you can refer to them later. What SIDE EFFECTS can this medicine cause? Some side effects can be serious. If you experience these symptoms, call your doctor immediately or get emergency treatment: ? rash, hives, or itching all over the body ? wheezing ? difficulty breathing or swallowing ? fast pulse ? sweating ? swelling of the eyes, face, lips, tongue, or throat ? hoarseness ? weakness ? muscle cramps ? abnormal heartbeat ? sudden weight gain ? swelling of ankles or feet ? shortness of breath ? vision changes Insulin glargine products may cause other side effects. Call your doctor if you have any unusual problems while using this medication. What should I know about STORAGE and DISPOSAL of this medication? Keep this medication in the container it came in and out of reach of children. Store unopened insulin glargine product vials and pens in the refrigerator. Never allow insulin glargine products to freeze; do not use insulin glargine that has been frozen and thawed. Unopened refrigerated insulin glargine products can be stored until the date shown on the company's label. If a refrigerator is unavailable (for example, when on vacation), store the vials or pens at room temperature and away from direct sunlight and extreme heat. Unrefrigerated vials or pens can be used within 28 days; after that time they must be discarded. Opened vials can be stored for 28 days at room temperature or in the refrigerator. Opened pens must be stored at room temperature and may be used for up to 28 days after the first use. Dispose of any insulin that has been exposed to extreme heat or cold. It is important to keep all medication out of sight and reach of children as many containers (such as weekly pill minders and those for eye drops, creams, patches, and inhalers) are not child-resistant and young children can open them easily. To protect young children from poisoning, always lock safety caps and immediately place the medication in a safe location - one that is up and away and out of their sight and reach. https://www.[employer].org Unneeded medications should be disposed of in special ways to ensure that pets, children, and other people cannot consume them. However, you should not flush this medication down the toilet. Instead, the best way to dispose of your medication is through a medicine take-back program. Talk to your pharmacist or contact your local garbage/recycling department to learn about take-back programs in your community. See the FDA's Safe Disposal of Medicines website (https://goo.gl/c4Rm4p) for more information if you do not have access to a take-back program. What should I do in case of OVERDOSE? In case of overdose, call the poison control helpline at . Information is also available online at https://www.poisonhelp.org/help. If the victim has collapsed, had a seizure, has trouble breathing, or can't be awakened, immediately call emergency services at 299. Insulin glargine overdose can occur if you use too much insulin glargine or if you use the right amount of insulin glargine but eat less than usual or exercise more than usual. Insulin glargine overdose can cause hypoglycemia. If you have symptoms of hypoglycemia, follow your doctor's instructions for what you should do if you develop hypoglycemia. Other symptoms of overdose: ? loss of consciousness ? seizures What OTHER INFORMATION should I know? Keep all appointments with your doctor and the laboratory. Your blood sugar and glycosylated hemoglobin (HbA1c) should be checked regularly to determine your response to insulin glargine. Your doctor will also tell you how to check your response to this medication by measuring your blood sugar levels at home. Follow these instructions carefully. You should always wear a diabetic identification bracelet to be sure you get proper treatment in an emergency. Do not let anyone else use your medication. Ask your pharmacist any questions you have about refilling your prescription. It is important for you to keep a written list of all of the prescription and nonprescription (jjzl-raf-hjasvxx) medicines you are taking, as well as any products such as vitamins, minerals, or other dietary supplements. You should bring this list with you each time you visit a doctor or if you are admitted to a hospital. It is also important information to carry with you in case of emergencies. This report on medications is for your information only, and is not considered individual patient advice. Because of the changing nature of drug information, please consult your physician or pharmacist about specific clinical use. The [place] [employer] represents that the information provided hereunder was formulated with a reasonable standard of care, and in conformity with professional standards in the field. The [place] [employer] makes no representations or warranties, express or implied, including, but not limited to, any implied warranty of merchantability and/or fitness for a particular purpose, with respect to such information and specifically disclaims all such warranties. Users are advised that decisions regarding drug therapy are complex medical decisions requiring the independent, informed decision of an appropriate health care transitions nurse, and the information is provided for informational purposes only. The entire monograph for a drug should be reviewed for a thorough understanding of the drug's actions, uses and side effects. The [place] [employer] does not endorse or recommend the use of any drug. The information is not a substitute for medical care. AHFS? Patient Medication Information?. ? Copyright, 2023. [employer] [place] [employer]?, [address], [address], [place], [place]. All Rights Reserved. Duplication for commercial use must be authorized by [facility]. Selected Revisions: February 10, 2022. AHFS? Patient Medication Information?. ? Copyright, 2024 [facility]2025-03-12 18:10:34 Images from the original note were not included. [id number] Insulin Lispro Injection Brand Name(s): Admelog?, Humalog?, Humalog? Mix50/50, Humalog? Mix75/25, Lyumjev?(insulin lispro-aa) WHY is this medicine prescribed? Insulin lispro injection products are used to treat type 1 diabetes (condition in which the body does not produce insulin and therefore cannot control the amount of sugar in the blood). Insulin lispro injection products are also used to treat people with type 2 diabetes (condition in which the body does not use insulin normally and therefore cannot control the amount of sugar in the blood) who need insulin to control their diabetes. In patients with type 1 diabetes, insulin lispro injection products are always used with another type of insulin, unless it is used in an external insulin pump. In patients with type 2 diabetes, insulin lispro injection products may be used with another type of insulin or with oral medication(s) for diabetes. Insulin lispro injection products are a short-acting, manmade version of human insulin. Insulin lispro injection products work by replacing the insulin that is normally produced by the body and by helping move sugar from the blood into other body tissues where it is used for energy. They also stops the liver from producing more sugar. Over time, people who have diabetes and high blood sugar can develop serious or life-threatening complications, including heart disease, stroke, kidney problems, nerve damage, and eye problems. Using medication(s), making lifestyle changes (e.g., diet, exercise, quitting smoking), and regularly checking your blood sugar may help to manage your diabetes and improve your health. This therapy may also decrease your chances of having a heart attack, stroke, or other diabetes-related complications such as kidney failure, nerve damage (numb, cold legs or feet; decreased sexual ability in men and women), eye problems, including changes or loss of vision, or gum disease.Your doctor and other healthcare providers will talk to you about the best way to manage your diabetes. HOW should this medicine be used? Insulin lispro injection products come as a solution (liquid) and a suspension (liquid with particles that will settle on standing) to inject subcutaneously (under the skin). Insulin lispro solution (Admelog, Humalog) is usually injected within 15 minutes before a meal or immediately after a meal. Insulin lispro suspension (Humalog Mix 75/25 or Humalog Mix 50/50) should be injected 15 minutes before a meal. Insulin lispro-aabc solution (Lyumjev) should be injected at the beginning of a meal or within 20 minutes after you start eating a meal.Your doctor will tell you how many times you should inject insulin lispro products each day. Follow the directions on your prescription label carefully, and ask your doctor or pharmacist to explain any part you do not understand. Use insulin lispro injection products exactly as directed. Do not use more or less of it or use it more often than prescribed by your doctor. Insulin lispro injection products may also be injected intravenously (into a vein) by a doctor or nurse in a healthcare setting. A doctor or nurse will carefully monitor you for side effects. Never use insulin lispro injection products when you have symptoms of hypoglycemia (low blood sugar) or if you have checked your blood sugar and found it to be low. Insulin lispro injection products control diabetes but do not cure it. Continue to use insulin lispro products even if you feel well. Do not stop using insulin lispro injection products without talking to your doctor. Do not switch to another brand or type of insulin or change the dose of any type of insulin you are using without talking to your doctor. Always check the insulin label to make sure you received the right type of insulin from the pharmacy. Insulin lispro injection products come in vials, cartridges that contain medication and are to be placed in dosing pens, and dosing pens that contain cartridges of medication. Be sure you know what type of container your insulin lispro comes in and what other supplies, such as needles, syringes, or pens you will need to inject your medication. If your insulin lispro injection product comes in vials, you will need to use syringes to inject your dose. Ask your doctor or pharmacist to show you how to inject an insulin lispro injection product using a syringe. Ask your doctor or pharmacist if you have questions about the type of syringe you should use. If your insulin lispro injection product comes in cartridges, you will need to purchase an insulin pen separately. Check the rapier insertion loom fixer's information for the patient to see what type of pen is right for the cartridge size you are using. Carefully read the instructions that come with your pen, and ask your doctor or pharmacist to show you how to use it. Ask your doctor or pharmacist if you have questions about the type of pen you should use. If your insulin lispro injection product comes in pens, be sure to read and understand the rapier insertion loom fixer's instructions. Ask your doctor or pharmacist to show you how to use the pen. Follow the directions carefully, and always prime the pen before use. Never reuse needles or syringes and never share needles, syringes, cartridges, or pens. If you are using an insulin pen, always remove the needle right after you inject your dose. Dispose of needles and syringes in a puncture-resistant container. Ask your doctor or pharmacist how to dispose of the puncture-resistant container. Your doctor may tell you to mix your insulin lispro solution with another type of insulin (NPH insulin) in the same syringe. Your doctor will tell you exactly how to do this. Always draw insulin lispro into the syringe first, always use the same brand of syringe, and always inject the insulin immediately after mixing. Insulin lispro injection products should not be mixed with insulin preparations other than NPH insulin. Insulin lispro suspension should not be mixed with any other insulin preparations. Your doctor may tell you to dilute insulin lispro injection products before injection to allow easier measurement of your dose. Your doctor will tell you exactly how to do this. You can inject your insulin lispro injection product in your thighs, stomach, upper arms, or buttocks. Change (rotate) the injection site within the chosen area with each dose. Do not inject where the skin is thick, lumpy, tender, bruised, scaly, hard, or into areas of skin where there are scars or skin is damaged. Always look at your insulin lispro product before you inject it. If you are using insulin lispro solution, the insulin should be clear and colorless. Do not use this type of insulin lispro product if it is colored, cloudy, or contains solid particles. If you are using insulin lispro suspension, the insulin should appear cloudy or milky after you mix it. Do not use this type of insulin product if there are clumps in the liquid or if there are solid white particles sticking to the bottom or wyatt of the bottle. Do not use any type of insulin after the expiration date printed on the bottle has passed. Insulin lispro suspension must be gently shaken or rolled between your hands to mix before use. Ask your doctor or pharmacist if the type of insulin you are using should be mixed and how you should mix it if necessary. Insulin lispro solution (Admelog, Humalog U-100, Lyumjev U-100) also can be used with an external insulin pump. Before using insulin lispro products in a pump system, read the pump label to make sure the pump can be used for continuous delivery of fast-acting insulin. Read the pump manual for recommended reservoir and tubing sets, and ask your doctor or pharmacist to show you how to use the insulin pump. Do not dilute insulin lispro or mix it with any other type of insulin when using it with an external insulin pump. When using insulin lispro products with an external insulin pump, replace the insulin in the reservoir at least every 7 days (Admelog, Humalog U-100,) or at least every 9 days (Lyumjev U-100), and change the infusion set and infusion set insertion site at least every 3 days. If the infusion site is red, itchy, lumpy, or thickened, tell your doctor and use a different infusion site. When using insulin lispro solution in an external insulin pump, high blood sugar may occur quickly if the pump stops working properly or if the insulin in the pump reservoir is exposed to direct sunlight or temperatures greater than 98.6?F (37?C). High blood sugar may also occur if the tubing leaks or becomes blocked, disconnected, or kinks. If the problem cannot be found quickly and corrected, call your doctor right away. You may need to temporarily use insulin by subcutaneous injection (using syringes or an insulin pen). Make sure you have back-up insulin and any necessary supplies on hand, and ask your doctor or pharmacist to show you how to use them. This medication may be prescribed for other uses; ask your doctor or pharmacist for more information. What SPECIAL PRECAUTIONS should I follow? Before using an insulin lispro injection product, ? tell your doctor and pharmacist if you are allergic to insulin (Humulin, Novolin, others), insulin lispro, insulin lispro-aabc, any of the ingredients of insulin lispro injection products, or any other medications. Ask your pharmacist or check the rapier insertion loom fixer's patient information for a list of the ingredients. ? tell your doctor and pharmacist what prescription and nonprescription medications, vitamins, nutritional supplements, and herbal products you are taking while using an insulin lispro injection product. Your doctor may need to change the doses of your medications or monitor you carefully for side effects. ? the following nonprescription products may interact with insulin lispro injection product: niacin; salicylate pain relievers such as aspirin, choline magnesium trisalicylate (Trisalate), choline salicylate (Arthropan), magnesium salicylate (Behzad's, others), and salsalate (Argesic Disalcid, Salgesic). Be sure to let your doctor and pharmacist know that you are taking these medications before you start using insulin lispro injection product. Do not start any of these medications while using insulin lispro injection product without discussing with your healthcare provider. ? tell your doctor if you have or have ever had nerve damage caused by your diabetes; heart failure; low blood levels of potassium; or if you have any other medical conditions, including heart, liver, or kidney disease. Also tell your doctor if you frequently have episodes of hypoglycemia. ? tell your doctor if you are , plan to become , or are . If you become while using insulin lispro injection products, call your doctor. ? if you are having surgery, including dental surgery, tell the doctor or dentist that you are using an insulin lispro injection product. ? Alcohol may cause a change in blood sugar. Ask your doctor about the safe use of alcoholic beverages and prescription or over the counter medications that contain alcohol while you are using an insulin lispro injection product. ? ask your doctor what to do if you get sick, experience unusual stress, or change your diet, exercise, or activity schedule. These changes can affect your dosing schedule and the amount of insulin you will need. ? you should know when you first start using insulin lispro injection products or have a large dose increase you may experience blurry vision or other vision problems, or a painful, burning, weak or numb sensation in your hands, arms, feet, or legs. These side effects should go away, but tell your doctor if these effects continue. ? ask your doctor how often you should check your blood sugar. Be aware that hypoglycemia may affect your ability to perform tasks such as driving and ask your doctor if you need to check your blood sugar before driving or operating machinery. What SPECIAL DIETARY instructions should I follow? Be sure to follow all dietary recommendations made by your doctor or dietitian. It is important to eat a healthful diet, and to eat about the same amounts of the same kinds of food at about the same times each day. Skipping or delaying meals or changing the amount or kind of food you eat can cause problems with your blood sugar control. What should I do IF I FORGET to take a dose? Insulin lispro injection products must be injected shortly before or after a meal. If you remember your dose before or shortly after your meal, inject the missed dose right away. If some time has passed since your meal, follow the instructions provided by your doctor or call your doctor to find out whether you should inject the missed dose. Do not inject a double dose to make up for a missed one. What SIDE EFFECTS can this medicine cause? Some side effects can be serious. The following symptoms are uncommon, but if you experience any of them, call your doctor immediately: ? rash and itching, difficulty breathing, hives, wheezing, fast heartbeat, sweating, and feeling drowsy, dizzy or confused ? swelling of the face, tongue, or throat ? weakness, muscle cramps, abnormal heartbeat ? shortness of breath ? large weight gain in a short period of time ? swelling of the arms, hands, feet, ankles, or lower legs Insulin lispro may cause other side effects. Call your doctor if you have any unusual problems while using this medication. If you experience a serious side effect, you or your doctor may send a report to the Food and Drug Administration's (FDA) MedWatch Adverse Event Reporting program online (https://www.fda.gov/Safety/MedWatch) or by phone ( ). What should I know about STORAGE and DISPOSAL of this medication? Keep this medication in the container it came in and out of reach of children. Store unopened insulin lispro vials, cartridges, and pens in the refrigerator, but do not freeze them. Unopened refrigerated insulin lispro products can be stored until the date shown on the company's label. If a refrigerator is unavailable (for example, when on vacation), store the unopened vials, cartridges, or pens of insulin lispro solution (Admelog, Humalog, Lyumjev) at room temperature and away from direct sunlight and extreme heat. Unrefrigerated unopened vials, cartridges, and pens of insulin lispro solution (Admelog, Humalog, Lyumjev) can be used within 28 days, but after that time they must be discarded. Unrefrigerated unopened vials of insulin lispro suspension (Humalog 50/50, Humalog 70/25) can be used within 28 days and unrefrigerated, unopened pens can be used within 10 days; after that time they must be discarded. Opened vials of insulin lispro solution (Admelog, Humalog) can be stored for 28 days at room temperature or in the refrigerator. If your doctor tells you to dilute your insulin lispro injection product solution, a vial of diluted Humalog can be stored for 28 days in the refrigerator or 14 days at room temperature, a vial of diluted Admelog can be stored for 1 day (24 hours) in the refrigerator or 4 hours at room temperature, and a vial of diluted Lyumjev can be stored for 4 days in the refrigerator or 12 hours hours at room temperature. Opened insulin lispro solution (Admelog, Humalog) cartridges and pens may be stored at room temperature for up to 28 days; do not refrigerate them. Opened pens containing Humalog 50/50 or Humalog 75/25 may be stored at room temperature for up to 10 days; do not refrigerate them. Opened insulin lispro solution (Lyumjev) pens can be stored at room temperature for up to 28 days. Discard any insulin lispro product that has been exposed to extreme heat or cold. It is important to keep all medication out of sight and reach of children as many containers (such as weekly pill minders and those for eye drops, creams, patches, and inhalers) are not child-resistant and young children can open them easily. To protect young children from poisoning, always lock safety caps and immediately place the medication in a safe location - one that is up and away and out of their sight and reach. https://www.[employer].org Unneeded medications should be disposed of in special ways to ensure that pets, children, and other people cannot consume them. However, you should not flush this medication down the toilet. Instead, the best way to dispose of your medication is through a medicine take-back program. Talk to your pharmacist or contact your local garbage/recycling department to learn about take-back programs in your community. See the FDA's Safe Disposal of Medicines website (https://goo.gl/c4Rm4p) for more information if you do not have access to a take-back program. What should I do in case of OVERDOSE? In case of overdose, call the poison control helpline at . Information is also available online at https://www.poisonhelp.org/help. If the victim has collapsed, had a seizure, has trouble breathing, or can't be awakened, immediately call emergency services at 971. Insulin lispro overdose can occur if you use too much insulin lispro injection products or if you use the right amount of insulin lispro injection product but eat less than usual or exercise more than usual. Insulin lispro overdose can cause hypoglycemia. If you have any symptoms of hypoglycemia, follow your doctor's instructions for what you should do if you develop hypoglycemia. Other symptoms of overdose: ? coma ? seizures What OTHER INFORMATION should I know? Keep all appointments with your doctor and the laboratory. Your doctor will order certain lab tests to check your body's response to insulin lispro injection products. Your doctor will also tell you how to check your response to insulin lispro injection products by measuring your blood sugar levels at home. Follow these instructions carefully. You should always wear a diabetic identification bracelet to be sure you get proper treatment in an emergency. Do not let anyone else use your medication. Ask your pharmacist any questions you have about refilling your prescription. It is important for you to keep a written list of all of the prescription and nonprescription (sucj-foq-cparrla) medicines you are taking, as well as any products such as vitamins, minerals, or other dietary supplements. You should bring this list with you each time you visit a doctor or if you are admitted to a hospital. It is also important information to carry with you in case of emergencies. This report on medications is for your information only, and is not considered individual patient advice. Because of the changing nature of drug information, please consult your physician or pharmacist about specific clinical use. The [place] [employer] represents that the information provided hereunder was formulated with a reasonable standard of care, and in conformity with professional standards in the field. [employer] [place] [employer] makes no representations or warranties, express or implied, including, but not limited to, any implied warranty of merchantability and/or fitness for a particular purpose, with respect to such information and specifically disclaims all such warranties. Users are advised that decisions regarding drug therapy are complex medical decisions requiring the independent, informed decision of an appropriate health care transitions nurse, and the information is provided for informational purposes only. The entire monograph for a drug should be reviewed for a thorough understanding of the drug's actions, uses and side effects. The [place] [employer] does not endorse or recommend the use of any drug. The information is not a substitute for medical care. AHFS? Patient Medication Information?. ? Copyright, 2023. [employer] [place] [employer]?, [address], [address], [place], [place]. All Rights Reserved. Duplication for commercial use must be authorized by [facility]. Selected Revisions: June 12, 2021. AHFS? Patient Medication Information?. ? Copyright, 2024 Janice Mcdaniels2025-03-12 18:06:29 Images from the original note were not included. 11969 Understanding Coronary Artery Disease (CAD) Your heart is a muscle. To work right, this muscle needs a steady supply of oxygen. The coronary arteries are blood vessels that carry oxygen-rich blood to the heart muscle. Coronary artery disease (CAD) is when there?s a problem in these blood vessels. The coronary arteries get blocked, resulting in reduced blood supply to the heart muscles. Healthy artery. A healthy coronary artery has no blockages. Blood easily flows through it. Healthy arteries can supply all the oxygen-rich blood your heart muscle needs. Healthy artery. Damaged artery. Some things can damage the lining of an artery. These include smoking, high blood pressure, and high blood sugar. CAD starts when this damage leads to the buildup of plaque along the artery wall. Plaque is made of cholesterol and other fatty deposits. It narrows the arteries that send blood to your heart muscle. It also makes the wyatt of the arteries stiff. This is called atherosclerosis. Damaged artery. Narrowed artery. As more plaque builds up, an artery has trouble sending blood to your heart muscle when it's needed the most, such as during exercise. You may not feel any symptoms at rest. The oxygen needed by the heart is not as much as during exertion. Symptoms may occur when the oxygen demand by heart muscles is not met by the blood supply through the narrowed artery. You may feel pressure, tightness, aching, or pain in your chest, jaw, neck, back, or arm. This is called angina. Narrowed artery. Blocked artery. A piece of plaque can break off. This is called ruptured plaque. It can fully block the artery. But more often, a blood clot forms on a piece of ruptured plaque. Together these block the narrowed artery. Then blood can't reach the heart muscle supplied by the blocked artery. It causes damage to the heart muscle. You may feel crushing pressure or pain in or around your chest. This is a heart attack (acute myocardial infarction). It?s a medical emergency. Blocked artery. Last Reviewed Date: 2024 00:00:00 ? [id number] [employer] All rights reserved. This information is not intended as a substitute for professional medical care. Always follow your healthcare professional's instructions. Susan [id number] 18:05:26 Images from the original note were not included. 14 [facility] Diet Five Tips to Better Health A heart-healthy diet is designed to protect your heart from further damage through long-term diet and lifestyle changes. Along with your medication and exercise, a heart-healthy diet can help reduce your risk for heart-related problems. The heart-healthy meal plan is based on limiting total fat, saturated fat, cholesterol and sodium while increasing your intake of fiber and omega-3 fatty acids (good fats). When making changes in your diet: "Take Five" 1. Limit saturated fat and trans fats. Remember DART to identify common sources: Dairy (e.g., whole milk, cream, butter and regular cheese) - Animal fat (e.g., steak or chicken with skin) - Restaurant dishes, some fried foods - Treats (chocolate, cookies and other baked goods, and products with "partially hydrogenated oils" in the ingredient list) 2. Limit the amount of cholesterol you eat to less than 200 mg (milligrams) per day. Foods high in cholesterol include egg yolks, fatty meat, whole milk and regular cheese. 3. Cut back on sodium by getting rid of the saltshaker and avoiding high-sodium foods like deli meats, frozen meals, condiments, canned foods and other convenience items. Check the label and choose foods with no more than 140 mg of sodium per serving. 4. Get more fiber. Aim for 20 to 30 grams of fiber per day from sources like whole grains, fruit, vegetables, and beans. 5. Eat approximately 4 ounces of fish twice a week to get more omega-3 fatty acids. [place], cod, trout and tuna are high in omega-3s. Try low-sodium canned tuna for a less expensive option. Other Heart-Healthy diet information: ? Check with your doctor before drinking ANY alcohol. ? Use caffeine (coffee, tea, soft drinks) in moderation. Caffeine may affect your blood pressure and heart health. ? When dining out: o Ask for nutrition information to help stay on track with your heart-healthy diet. o Ask for sauces and dressings on the side. ? Read the Nutrition Facts label to be sure you are following the Heart-Healthy Guidelines. Heart-Healthy Diet Food Group Avoid Better Choices Milk/Dairy Whole milk Regular or processed cheese products Cream Nonfat (skim) or 1% milk Cheeses low in saturated fat and sodium Nonfat or low-fat yogurt Meat/ Protein Regular ground meats Deep-fried meats Fatty cuts such as ribeye or brisket White meat poultry without sl? Fresh fish or low-sodium canned fish Lean beef cuts: round steak, tenderloin, sirloin tips Vegetable protein foods, like beans, veggie burgers or tofu Ground sirloin or round Vegetables & Fruits Fried fruit such as plantain or fried fruit pies Fruits served with butter or cream Vegetables canned with sodium Fresh fruits and vegetables Frozen fruits and vegetables, no added sauces, gravies or salted seasonings Bread & Cereals High-fat bakery products, such as doughnuts, biscuits or croissants Snacks made with partially hydrogenated oils, like cheese puffs Products with whole grains as the first ingredient Breads with at least 2 grams of fiber per serving Cereals that contain at least 5 grams of fiber per serving Snacks like air-popped popcorn, low-salt pretzels Fats Butter Lard Partially hydrogenated oils Monounsaturated fats such as olive, grapeseed, or canola oil Whipped spreads Spreads with zero trans fat Reading a Food Label Reference: Academy of Nutrition and Dietetics, Adult Nutrition Care Manual, 2012. If you would like to obtain more information on a heart-healthy diet, please contact [facility] by calling [phone]. [id number] 02/08 [facility] [id number] 18:05:16 Images from the original note were not included. [id number] Health Effects of Smoking Smoking damages almost every organ in your body. This includes your heart, lungs, and brain. It also affects your bones and raises your risk for certain cancers. These are all good reasons to quit. How smoking affects your body Chemicals in tobacco damage the DNA of cells. DNA controls normal cell function. As a result, normal cell growth and development are changed. This can result in abnormal cells that cause cancerous tumors to grow. Smoking has been linked with many serious illnesses. It also increases signs of aging. A few of the health effects of smoking are listed below. Smoking can: ? Raise your risk for many types of cancer. This includes cancer of the mouth, esophagus, lung, larynx, and windpipe (trachea). It can also increase the risk for stomach, pancreas, bladder, blood (acute myeloid leukemia), liver, kidney, and cervical cancer. Smokeless tobacco can cause cancers of the mouth, throat, esophagus, and pancreas. ? Harm your lungs and cause problems with breathing. This includes emphysema and COPD (chronic obstructive pulmonary disease). ? Raise blood pressure. This raises your risk for heart attack or stroke. ? Reduce blood flow. This can slow healing and cause wrinkles. ? Cause plaque to build up in your arteries (atherosclerosis). This can lead to heart attacks and strokes. ? Increase your risk for bone problems, including bone thinning (osteoporosis). Smoking can also lead to poor bone healing if you ever have a broken bone or bone surgery. ? In women, cause bleeding problems, miscarriage, stillbirth, or defects ? In men, cause problems with erections What happens when you smoke? When you smoke, your breathing becomes shallow. Your lungs fill with smoke. Smoking cigarettes also fills your body with chemicals, such as nicotine and tar. Here?s how these things affect your body: ? Smoke. Cigarette smoke contains carbon monoxide. This gas takes the place of oxygen in your blood. ? Nicotine. This drug raises your blood pressure and heart rate. It reduces blood flow to your arms and legs. And it slows digestion. ? Tar. Tar is what?s left after tobacco is smoked. This sticky brown material gums up your lungs. This causes less oxygen to get into your bloodstream. ? Other chemicals. Cigarette smoke contains more than 4,000 other chemicals. They include formaldehyde, arsenic, and lead. Dozens of these chemicals are known to cause cancer. To learn more ? CDC at www.cdc.gov/tobacco/quit_smoking or 949-RHHT-BWF (949-051-1705) ? Smokefree.gov at www.smokefree.gov or 826-31Y-RSZF (903-222-7940) ? [place] [employer] at www.lung.org/quit-smoking or 466-QVKU-VRW (302-743-4595) Last Reviewed Date: 2022 00:00:00 ? The My 1%. All rights reserved. This information is not intended as a substitute for professional medical care. Always follow your healthcare professional's instructions. [facility]2025-03-12 18:05:06 Images from the original note were not included. [id number] After Bypass Surgery: Caring for Your Incision Your incisions may itch or feel sore, tight, or numb for a few weeks after the surgery. These are all normal signs of healing. Some bruising around the incisions is also normal. To care for your incisions: ? Wash them gently with warm water and a mild soap once it's OK with your surgeon to do so. Gently pat them dry. Don't soak the incisions or keep them in water, such as in a bathtub, hot tub, or swimming pool. ? To help prevent infection, don't use any lotions or creams near the incisions, unless your healthcare provider tells you to do so. ? Many incisions have small strips of tape to support the wound healing process. After several days, they may fall off as they are no longer needed. Don't remove them before this. Last Reviewed Date: 2022 00:00:00 ? The My 1%. All rights reserved. This information is not intended as a substitute for professional medical care. Always follow your healthcare professional's instructions. [facility]2025-03-12 18:04:37 Images from the original note were not included. 00581 After Bypass Surgery: Choosing Activities During the first few weeks after surgery, you need to do things that don't use your arms too much. Using your upper body tires you faster. It can also cause pain around your incision and in your chest. It can also slow the healing of the muscle and bones at the incision site. The tips below tell you some things you can do and some you should not do for the first few weeks. gambling cashier you can do As you feel stronger, it's OK to do light telesales professional such as: ? Watering small plants ? Dusting ? Light repairs ? Setting the table ? Washing dishes ? Preparing simple meals ? Baking gambling cashier to avoid Try not to raise your arms above your shoulders. And don't do things that make you push or pull with your upper body, such as: ? Vacuuming, sweeping, or scrubbing ? Changing sheets on the bed ? Moving trash cans or heavy furniture ? Carrying filled laundry baskets, baggage, or anything weighing more than 5 pounds ? Gardening ? Shoveling snow or using a machine stapler Last Reviewed Date: 2021 00:00:00 ? [id number] The My 1%. All rights reserved. This information is not intended as a substitute for professional medical care. Always follow your healthcare professional's instructions. [id number] 18[facility]04:32 Images from the original note were not included. 11057 After Bypass Surgery: Choosing Activities During the first few weeks after surgery, you need to do things that don't use your arms too much. Using your upper body tires you faster. It can also cause pain around your incision and in your chest. It can also slow the healing of the muscle and bones at the incision site. The tips below tell you some things you can do and some you should not do for the first few weeks. gambling cashier you can do As you feel stronger, it's OK to do light telesales professional such as: ? Watering small plants ? Dusting ? Light repairs ? Setting the table ? Washing dishes ? Preparing simple meals ? Baking gambling cashier to avoid Try not to raise your arms above your shoulders. And don't do things that make you push or pull with your upper body, such as: ? Vacuuming, sweeping, or scrubbing ? Changing sheets on the bed ? Moving trash cans or heavy furniture ? Carrying filled laundry baskets, baggage, or anything weighing more than 5 pounds ? Gardening ? Shoveling snow or using a machine stapler Last Reviewed Date: 2021 00:00:00 ? [id number] The My 1%. All rights reserved. This information is not intended as a substitute for professional medical care. Always follow your healthcare professional's instructions. Susan [id number] 18:04:29 Images from the original note were not included. 64764 After Bypass Surgery: Getting Up and Out of Bed After coronary artery bypass surgery, it's important to protect your incision and healing breastbone. Move carefully as you get up from sitting or as you get out of bed. Getting up from sitting When you get up from a chair or couch, use your leg muscles, not your arms, to push your body up. To stand up: 1. Scoot to the front of the chair. 2. Place one foot slightly in front of the other. 3. Put your hands on your thighs. 4. Bend forward from the hips and push your body up with your legs. To sit down, use your leg muscles to lower yourself onto the front of the chair. Then use your leg muscles, not your arms, to scoot back. Getting out of bed When you get in and out of bed, keep your shoulders and hips in line. Also when you're getting out of bed, roll over to your side rather than trying to sit straight up. To get out of bed: ? Lie on your back and slowly scoot to the edge of the bed. ? Bend your knees slightly and roll slowly onto your side. ? Keep your upper arms close to the sides of your body. This can help prevent excess stress on your breastbone (sternum). Place your hands in front of your body and lean slightly forward. ? Let your legs move slowly off the edge of the bed to the floor. ? At the same time, as your legs gently swing to the floor, let the motion help raise your upper body to a sitting position. ? Sit for a moment. This will help keep you from getting dizzy. ? Put your hands on your thighs. Bend forward from the hips and push your body up with your legs. ? Don't use your arms to push up. This is to prevent putting weight on your arms. To get into bed, do the reverse. Before you leave the hospital, your health care provider will show you how to get in and out of bed. And they will show you how to stand up from a sitting position. They will teach you the correct method for body alignment. And they will teach you movements to stay away from, such as pulling to the side and twisting, or pushing and pulling with your arms. When you go home, try to have someone there who knows how to do this, such as a friend, a family member, or a caregiver. This is for your support and safety. Ask your health care provider questions if you are unsure about what to do. Last Reviewed Date: 2024 00:00:00 ? [id number] The My 1%. All rights reserved. This information is not intended as a substitute for professional medical care. Always follow your healthcare professional's instructions. [id number] 18[facility]04:18 Images from the original note were not included. 12159 After Coronary Artery Bypass Surgery You had a coronary artery bypass graft surgery (CABG, pronounced ?cabbage?). This surgery created new pathways around blocked parts of your heart?s blood vessels, allowing blood to reach your heart muscle. Your healthcare provider used a healthy blood vessel from another part of your body (a graft) to restore blood flow. Activity ? Discuss with your healthcare provider what you can and can?t do as you recover. You will have good and bad days. This is normal. But tell your healthcare provider if you feel depressed, have trouble sleeping, or have a persistent decrease in appetite. Although these problems are common after surgery, they can slow your recovery. It?s important to seek help. ? Let others drive you wherever you need to go for the first 6 weeks after your surgery. ? Ask someone to stand nearby while you shower or do other activities, just in case you need help. ? Don't use very hot water while showering. It can affect your circulation and make you dizzy. ? Weigh yourself every day, at the same time of day, and in the same kind of clothes. A good way to do this is to weigh yourself in the morning when you first get out of bed and after peeing. Quick weight gain can be a sign of a problem that needs your healthcare provider?s attention. ? You may start doing light work around the house and yard after 2 to 3 weeks at home. Don?t lift anything heavier than 5 pounds. Your healthcare provider may give you a more specific weight restriction. Until approved by your healthcare provider, don't mow the lawn, vacuum, drive, lift heavy items, or do other activities that could strain your breastbone. ? Ask your healthcare provider when you can expect to return to work. It often depends on the type of work you do. ? Your provider may refer you to a cardiac rehab program. Cardiac rehab is a medically supervised program. It's designed to help your heart recover and your ability to function. It prepares you for future daily activities. It's overseen by a cardiac doctor and a team of cardiac health providers. Your program may last from 6 weeks to more than a year. The goal of cardiac rehab is to help ease your symptoms and make your heart as healthy as possible. Your program may include exercise, classes on quitting smoking, nutrition information, counseling, stress management, and occupational therapy. In some cases, you may be able to do this at home. Ask your provider if a cardiac rehab program would help you. Pain relief You will recover faster after surgery if your pain is kept under control: ? Don?t be surprised if you feel sharp pains as your breastbone heals or if you have soreness in your incision during changes in weather. ? Tell your healthcare provider if you have questions about what you?re feeling, if your medicines don?t reduce your pain, or if you suddenly feel worse. Incision care Healing takes several weeks. The bandage or dressing on your chest will likely be removed before you go home. If it's still in place, ask your healthcare provider how you should care for it after you return home. Do the following to care for your incision: ? If there are any adhesive skin closures still on your incision, ask your provider when you can remove them. They may fall off on their own after a week. ? Clean your incision every day with soap and running water. ? Gently pat the area of the incision to dry it. ? Don?t use any powders, lotions, ointments, or oils on your incision until it's well healed, unless your provider tells you to do so. ? Using a cool pack can reduce soreness and itching. Itching is common as the incision heals. Ask your provider how to safely use a cool pack. Lifestyle changes ? Ask your healthcare provider when you can start a walking program: o If you haven?t already started a walking program in the hospital, start with short walks (about 5 minutes) at home. Go a little longer each day. o Choose a safe place with a level surface, such as a local park or mall. o Wear supportive shoes to prevent injury to your knees and ankles. o Walk with someone. It?s more fun and helps you stay with it. ? Take your medicines exactly as directed. Don?t skip doses. ? Maintain a healthy weight. Get help to lose any extra pounds. ? Avoid fatty and fried foods. Stick to lean meats, such as chicken or fish. ? Cut back on salt: o Limit canned, dried, packaged, and fast foods. o Don?t add salt to your food at the table. o Season foods with herbs instead of salt when you cook. ? Break the smoking habit. Enroll in a stop-smoking program to improve your chances of success. When to call your healthcare provider Call your healthcare provider immediately if you have any of the following: ? Chest pain or a return of the heart symptoms you had before your surgery ? Fever of 100.4?F (38?C) or higher, or as directed by your healthcare provider ? Signs of infection (redness, swelling, drainage, foul smelling odor, or warmth) at the incision site. ? Weight gain of more than 2 pounds in 1 day, more than 5 pounds in 1 week, or whatever weight gain you were told to report by your healthcare provider ? New or increased swelling in your hands, feet, or ankles ? Unrelieved pain at the incision site(s) ? Fast, slow, or irregular pulse that resolves promptly ? Persistent abdominal pain ? Nausea, vomiting, or constipation ? Trouble urinating ? Bleeding that is controlled with pressure or that stops on its own Call 911 Call 911 if any of the followinng occur: ? New, unusual, or worsening chest pain ? Pain that is typical for your angina and doesn't go away promptly with medicine or rest ? New, unusual, or worsening chest pain ? New, unusual, or worsening difficulty breathing ? Uncontrollable bleeding from a wound ? Dizziness or faintness that doesn't go away promptly with sitting or lying down ? Persistent unusually fast, slow, or irregular pulse Last Reviewed Date: 2021 00:00:00 ? [id number] The My 1%. All rights reserved. This information is not intended as a substitute for professional medical care. Always follow your healthcare professional's instructions. Susan [id number] 18:04:13 Images from the original note were not included. 06398 Coronary Artery Bypass Surgery Your coronary arteries are the vessels that carry blood to your heart muscle. If one or more of these arteries are blocked, blood can?t flow to the heart muscle. In this case, part of the heart muscle may (heart attack). Or it may become weakened and damaged and cause chest pain (angina). You may have shortness of breath, increasing tiredness (fatigue), leg swelling, or a run-down feeling. Coronary artery bypass surgery makes a path for blood to flow around a blockage. It helps reduce the risk for more damage to your heart caused by the lack of blood. It may also ease your symptoms of angina or shortness of breath. Getting ready for surgery Prepare for the procedure as you have been instructed. In addition: ? Tell your healthcare provider about all medicines you take. This includes ezzl-[id number]-[id number] medicines. It also includes herbs and other supplements and any recreational drugs. You may need to stop taking some or all of them before surgery. Your healthcare team will tell you which to take or stop. Pay attention to which medicines you need to take the day of surgery and which you should stop before surgery. Make sure you know when medicines should be stopped. ? If you smoke, use smokeless tobacco, electronic cigarettes, or vaping devices, you should quit before your surgery. ? Follow all directions you are given for not eating or drinking before surgery. Most people are told to not eat or drink anything after midnight before their procedure. Being on a heart-lung machine Coronary artery bypass surgery can be done with the heart still beating (off pump) or with the heart stopped (on pump). Your surgery team can tell you more about which type of surgery you will have: ? On-pump surgery. A machine does the work of your heart and lungs during surgery. Blood is circulated through the heart-lung machine. The machine supplies the blood with oxygen and pumps it back through the body. In these cases, the heart may be stopped temporarily before the graft is attached. Your own heart and lungs start working again after the bypass is done. ? Off-pump surgery. The heart-lung machine is not used, and the heart is not stopped. This is sometimes called a "beating heart" procedure. There are risks and benefits of each method. If you have a question about why your doctor is using one method instead of the other, don't be afraid to ask. Preparing the bypass graft First, a healthy blood vessel (graft) is taken from another part of your body. Taking this graft usually doesn't affect blood flow in that body part. Often there is more than one blockage in the coronary artery. If you have more than one blockage, you may need more than one graft. You may have special ultrasound tests to look at the possible grafts before surgery. One or more of these blood vessels will be used for the graft: ? The saphenous vein, which is in the leg ? The radial artery, which is in the wrist ? The internal thoracic (mammary) arteries, which are in the chest wall. There are two internal thoracic arteries, one on each side of the chest. Most often, the left artery is used, but sometimes both are used. Reaching the heart While one member of the bypass team is harvesting the graft or grafts, another member works to reach your heart. The provider makes an incision in your chest. Then they open the breastbone (sternum) down the middle and pull it apart. The breastbone is held open during surgery. This puts pressure on the nerves of the chest. This is why you may have soreness and muscle spasms in your chest, shoulders, and back after surgery. Attaching the graft A small opening is made in the coronary artery, past the blockage. If a saphenous vein or radial artery is used , one end of the graft is sewn onto this opening. The other end is typically sewn onto the aorta. Neither the diseased artery nor the blockage is removed. If a stent is in place, it is not removed either. This is because the stent will already have become a permanent part of the artery. If the internal thoracic (mammary) artery is used , one end of the graft is sewn onto this opening. The other end is already attached to a branch of the aorta. Finishing up Once the graft has been attached, blood will start flowing through this new pathway to bypass the blockage. If you have multiple blockages, more than one bypass may be done. Then your breastbone is rejoined with wires. These wires will stay in your chest permanently. They rarely cause a problem. They are safe around airport metal detectors and in MRI machines. The incision is closed, and you are taken to the intensive care unit (ICU) to begin your recovery. Risks and possible complications You and your surgeon can discuss the risks and possible complications of coronary artery bypass surgery. They may include: ? A lot of bleeding that means you need a blood transfusion or more surgery ? Infection of the incision sites ? Lung infection (pneumonia) and other infections ? Fast, slow, or irregular heartbeat (often temporary) ? Slow heart rate that can mean you need a permanent pacemaker inserted ? Nerve injury or muscle spasms ? Breathing problems ? Memory problems or confusion ? Heart attack, stroke, or ? Damage to other parts or organs of your body Last Reviewed Date: 2021 00:00:00 ? [id number] [employer] All rights reserved. This information is not intended as a substitute for professional medical care. Always follow your healthcare professional's instructions. [id number]31 Images from the original note were not included. [id number] Rosuvastatin Brand Name(s): Crestor?, Ezallor? Sprinkle, Roszet? (containing Rosuvastatin, Ezetimibe); also available generically WHY is this medicine prescribed? Rosuvastatin is used together with diet, weight-loss, and exercise to reduce the risk of heart attack and stroke and to decrease the chance that heart surgery will be needed in people who have heart disease or who are at risk of developing heart disease. Rosuvastatin is also used to decrease the amount of cholesterol such as low-density lipoprotein (LDL) cholesterol ('bad cholesterol') and triglycerides in the blood and to increase the amount of high-density lipoprotein (HDL) cholesterol ('good cholesterol') in the blood. Rosuvastatin may also be used together with diet to decrease the amount of cholesterol and other fatty substances in the blood in adults and children and teenagers 8 to 17 years of age who have familial heterozygous hypercholesterolemia (an inherited condition in which cholesterol cannot be removed from the body normally). Rosuvastatin is used together with diet, and alone or in combination with other medications, to decrease the amount of cholesterol and other fatty substances in the blood in adults and children and teenagers 7 to 17 years of age who have familial homozygous hypercholesterolemia (an inherited condition in which cholesterol cannot be removed from the body normally). Rosuvastatin is in a class of medications called HMG-CoA reductase inhibitors (statins). It works by slowing the production of cholesterol in the body to decrease the amount of cholesterol that may build up on the wyatt of the arteries and block blood flow to the heart, brain, and other parts of the body. Accumulation of cholesterol and fats along the wyatt of your arteries (a process known as atherosclerosis) decreases blood flow and, therefore, the oxygen supply to your heart, brain, and other parts of your body. Lowering your blood level of cholesterol and fats with rosuvastatin has been shown to prevent heart disease, angina (chest pain), strokes, and heart attacks. HOW should this medicine be used? Rosuvastatin comes as a tablet to take by mouth. It is usually taken once a day with or without food. Take rosuvastatin at around the same time every day. Follow the directions on your prescription label carefully, and ask your doctor or pharmacist to explain any part you do not understand. Take rosuvastatin exactly as directed. Do not take more or less of it or take it more often than prescribed by your doctor. Your doctor will probably start you on a low dose of rosuvastatin and gradually increase your dose, not more than once every 2 to 4 weeks. Swallow the tablets whole; do not split, chew, or crush them. Continue to take rosuvastatin even if you feel well. Do not stop taking rosuvastatin without talking to your doctor. Are there OTHER USES for this medicine? This medication may be prescribed for other uses; ask your doctor or pharmacist for more information. What SPECIAL PRECAUTIONS should I follow? Before taking rosuvastatin, ? tell your doctor and pharmacist if you are allergic to rosuvastatin, any other medications, or any of the ingredients in rosuvastatin tablets. Ask your pharmacist for a list of the ingredients. ? tell your doctor and pharmacist what prescription and nonprescription medications, vitamins, nutritional supplements, and herbal products you are taking or plan to take. Your doctor may need to change the doses of your medications or monitor you carefully for side effects. ? if you are taking aluminum and magnesium hydroxide antacids (Mylanta, Maalox), take them at least 2 hours after rosuvastatin. ? tell your doctor if you have or ever had liver disease. Your doctor will order laboratory tests to see how well your liver is working even if you do not think you have liver disease. Your doctor will probably tell you not to take rosuvastatin if you have liver disease or if the tests show that you may be developing liver disease. ? tell your doctor if you are , if you drink more than 2 alcoholic beverages daily, if you are 65 years of age or older, or if you have or have ever had seizures, muscle aches or weakness, low blood pressure, impaired fasting glucose (pre-diabetes) or diabetes, or kidney or thyroid disease. ? tell your doctor if you are or plan to become . If you become while taking rosuvastatin, call your doctor immediately. ? tell your doctor if you are or plan to breastfeed. You should not breastfeed while taking rosuvastatin. ? if you are having surgery, including dental surgery, tell the doctor or dentist that you are taking rosuvastatin. If you are hospitalized due to serious injury or infection, tell the doctor who treats you that you are taking rosuvastatin. ? ask your doctor about the safe use of alcoholic beverages while you are taking rosuvastatin. Alcohol can increase the risk of serious side effects. What SPECIAL DIETARY instructions should I follow? Eat a low-fat, low-cholesterol diet. Be sure to follow all exercise and dietary recommendations made by your doctor or dietitian. You can also visit the National Cholesterol Education Program (NCEP) website for additional dietary information at https://www.nhlbi.nih.gov/health/public/heart/chol/chol_tlc.pdf. What should I do IF I FORGET to take a dose? Take the missed dose as soon as you remember it. However, if it is almost time for the next dose, skip the missed dose and continue your regular dosing schedule. Do not take a double dose to make up for a missed one. What SIDE EFFECTS can this medicine cause? Some side effects can be serious. If you experience any of the following symptoms, call your doctor immediately or get emergency medical help: ? muscle pain, tenderness, or weakness (or if these symptoms continue after stopping rosuvastatin) ? lack of energy ? fever ? dark, reddish urine or decreased amount of urine ? yellowing of the skin or eyes ? dark colored urine ? pain in the upper right part of the abdomen ? nausea ? extreme tiredness ? unusual bleeding or bruising ? loss of appetite ? flu-like symptoms ? rash ? hives ? itching ? difficulty breathing or swallowing ? swelling of the face, throat, tongue, lips, eyes, hands, feet, ankles, or lower legs ? hoarseness Rosuvastatin may cause other side effects. Call your doctor if you have any unusual problems while taking this medication. If you experience a serious side effect, you or your doctor may send a report to the Food and Drug Administration's (FDA) MedWatch Adverse Event Reporting program online (https://www.fda.gov/Safety/MedWatch) or by phone ( ). What should I know about STORAGE and DISPOSAL of this medication? Keep this medication in the container it came in, tightly closed, and out of reach of children. Store it at room temperature and away from excess heat and moisture (not in the bathroom). It is important to keep all medication out of sight and reach of children as many containers (such as weekly pill minders and those for eye drops, creams, patches, and inhalers) are not child-resistant and young children can open them easily. To protect young children from poisoning, always lock safety caps and immediately place the medication in a safe location - one that is up and away and out of their sight and reach. https://www.[employer].org Unneeded medications should be disposed of in special ways to ensure that pets, children, and other people cannot consume them. However, you should not flush this medication down the toilet. Instead, the best way to dispose of your medication is through a medicine take-back program. Talk to your pharmacist or contact your local garbage/recycling department to learn about take-back programs in your community. See the FDA's Safe Disposal of Medicines website (https://goo.gl/c4Rm4p) for more information if you do not have access to a take-back program. What should I do in case of OVERDOSE? In case of overdose, call the poison control helpline at . Information is also available online at https://www.poisonhelp.org/help. If the victim has collapsed, had a seizure, has trouble breathing, or can't be awakened, immediately call emergency services at 550. What OTHER INFORMATION should I know? Keep all appointments with your doctor and the laboratory. Your doctor may order lab tests during your treatment, especially if you develop symptoms of liver damage. Before having any laboratory test, tell your doctor and the laboratory personnel that you are taking rosuvastatin. Do not let anyone else take your medication. Ask your pharmacist any questions you have about refilling your prescription. It is important for you to keep a written list of all of the prescription and nonprescription (ievc-bdk-guhmalp) medicines you are taking, as well as any products such as vitamins, minerals, or other dietary supplements. You should bring this list with you each time you visit a doctor or if you are admitted to a hospital. It is also important information to carry with you in case of emergencies. This report on medications is for your information only, and is not considered individual patient advice. Because of the changing nature of drug information, please consult your physician or pharmacist about specific clinical use. The [employer] [employer] represents that the information provided hereunder was formulated with a reasonable standard of care, and in conformity with professional standards in the field. The [employer] makes no representations or warranties, express or implied, including, but not limited to, any implied warranty of merchantability and/or fitness for a particular purpose, with respect to such information and specifically disclaims all such warranties. Users are advised that decisions regarding drug therapy are complex medical decisions requiring the independent, informed decision of an appropriate health care transitions nurse, and the information is provided for informational purposes only. The entire monograph for a drug should be reviewed for a thorough understanding of the drug's actions, uses and side effects. The [employer] does not endorse or recommend the use of any drug. The information is not a substitute for medical care. AHFS? Patient Medication Information?. ? Copyright, 2023. The [employer]?, [address], [address], [place], [place]. All Rights Reserved. Duplication for commercial use must be authorized by [facility]. Selected Revisions: June 12, 2024. AHFS? Patient Medication Information?. ? Copyright, 2024 Susan [id number] 18:03:07 Images from the original note were not included. [id number] Clopidogrel Brand Name(s): Plavix?; also available generically IMPORTANT WARNING: Clopidogrel must be changed to an active form in your body so that it can treat your condition. Some people do not change clopidogrel to its active form in the body as well as other people. Because the medication does not work as well in these people, they may be at a higher risk of having a heart attack or stroke. There are tests available to identify people who have trouble changing clopidogrel to an active form. Talk to your doctor about whether you should be tested. If you are found to have difficulty converting clopidogrel to its active form, your doctor may change your dose of clopidogrel or tell you not to take clopidogrel. Your doctor or pharmacist will give you the [employer]'s patient information sheet (Medication Guide) when you begin treatment with clopidogrel and each time you refill your prescription. Read the information carefully and ask your doctor or pharmacist if you have any questions. You can also visit the Food and Drug Administration (FDA) website (https://www.fda.gov/Drugs/DrugSafety/ltv857852.htm) or the [employer]'s website to obtain the Medication Guide. Talk to your doctor about the risks of taking clopidogrel. WHY is this medicine prescribed? Clopidogrel is used alone or with aspirin to prevent serious or life-threatening problems with the heart and blood vessels in people who have had a stroke, heart attack, or severe chest pain. This includes people who have percutaneous coronary intervention (PCI; angioplasty; a type of heart surgery) that may involve inserting coronary stents (metal tubes surgically placed in clogged blood vessels to improve blood flow) or who have coronary artery bypass grafting (CABG; a type of heart surgery). Clopidogrel is also used to prevent serious or life-threatening problems with the heart and blood vessels in people who have peripheral arterial disease (poor circulation in the blood vessels that supply blood to the legs). Clopidogrel is in a class of medications called antiplatelet medications. It works by preventing platelets (a type of blood cell) from collecting and forming clots that may cause a heart attack or stroke. HOW should this medicine be used? Clopidogrel comes as a tablet to take by mouth. It is usually taken once a day with or without food. Take clopidogrel at around the same time every day. Follow the directions on your prescription label carefully, and ask your doctor or pharmacist to explain any part you do not understand. Take clopidogrel exactly as directed. Do not take more or less of it or take it more often than prescribed by your doctor. Clopidogrel will help prevent serious problems with your heart and blood vessels only as long as you take the medication. Continue to take clopidogrel even if you feel well. Do not stop taking clopidogrel without talking to your doctor. If you stop taking clopidogrel, there is a higher risk that you may have a heart attack or stroke. If you have a stent, there is also a higher risk that you could develop a blood clot in the stent if you stop taking clopidogrel too soon. Are there OTHER USES for this medicine? Clopidogrel is also sometimes used to prevent blood clots in people with atrial fibrillation (a condition in which the heart beats irregularly). Talk to your doctor about the possible risks of using this medication for your condition. This medication may be prescribed for other uses; ask your doctor or pharmacist for more information. What SPECIAL PRECAUTIONS should I follow? Before taking clopidogrel, ? tell your doctor and pharmacist if you are allergic to clopidogrel, prasugrel (Effient), ticlopidine, any other medications, or any ingredient in clopidogrel tablets. Ask your pharmacist or check the Medication Guide for a list of the ingredients. ? tell your doctor and pharmacist what other prescription and nonprescription medications, vitamins, nutritional supplements, and herbal products you are taking or plan to take while taking clopidogrel. Your doctor may need to change the doses of your medications or monitor you carefully for side effects. . ? The following nonprescription products may interact with clopidogrel: omeprazole (Prilosec, Prilosec OTC, Zegerid); esomeprazole (Nexium); aspirin and other nonsteroidal anti-inflammatory drugs (NSAIDs) such as ibuprofen (Advil, Motrin) and naproxen (Aleve, Naprosyn). Be sure to let your doctor and pharmacist know that you are taking these medications before you start taking clopidogrel. Do not start any of these medications while taking clopidogrel without discussing with your healthcare provider. ? tell your doctor if you have bleeding ulcers (sores in the lining of the stomach or small intestine that are bleeding), bleeding in the brain, or any other condition that causes severe bleeding. Your doctor may tell you that you should not take clopidogrel. ? tell your doctor if you have recently been injured and if you have or have ever had liver or kidney disease or any condition that may cause bleeding, including stomach problems such as ulcers. ? tell your doctor if you are , plan to become , or are breast-feeding. If you become while taking clopidogrel, call your doctor. ? if you are having surgery, including dental surgery, tell the doctor or dentist that you are taking clopidogrel. Your doctor may tell you to stop taking clopidogrel at least 5 days prior to your surgery to avoid excessive bleeding during surgery. Your doctor will tell you when to start taking clopidogrel again after your surgery. ? you should know that you may bleed more easily or for a longer time than usual while you are taking clopidogrel. Be careful not to cut or hurt yourself while you are taking clopidogrel. What SPECIAL DIETARY instructions should I follow? Unless your doctor tells you otherwise, continue your normal diet. What should I do IF I FORGET to take a dose? Take the missed dose as soon as you remember it. However, if it is almost time for the next dose, skip the missed dose and continue your regular dosing schedule. Do not take a double dose to make up for a missed one. What SIDE EFFECTS can this medicine cause? Some side effects can be serious. If you experience any of the following symptoms, call your doctor immediately: ? hives ? rash ? itching ? difficulty breathing or swallowing ? swelling of the face, throat, tongue, lips, eyes, hands, feet, ankles, or lower legs ? hoarseness ? black and tarry stools ? red blood in stools ? bloody vomit ? vomit that looks like coffee grounds ? unusual bleeding or bruising ? pink or brown urine ? slow or difficult speech ? weakness or numbness of an arm or a leg ? changes in vision ? fever ? shortness of breath ? fast heartbeat ? pale skin ? purple patches or bleeding under the skin ? confusion ? yellowing of the skin or eyes ? seizures Clopidogrel may cause other side effects. Call your doctor if you have any unusual problems while taking this medication. If you experience a serious side effect, you or your doctor may send a report to the Food and Drug Administration's (FDA) MedWatch Adverse Event Reporting program online (https://www.fda.gov/Safety/MedWatch) or by phone ( ). What should I know about STORAGE and DISPOSAL of this medication? Keep this medication in the container it came in, tightly closed, and out of reach of children. Store it at room temperature and away from excess heat and moisture (not in the bathroom). Unneeded medications should be disposed of in special ways to ensure that pets, children, and other people cannot consume them. However, you should not flush this medication down the toilet. Instead, the best way to dispose of your medication is through a medicine take-back program. Talk to your pharmacist or contact your local garbage/recycling department to learn about take-back programs in your community. See the FDA's Safe Disposal of Medicines website (https://goo.gl/c4Rm4p) for more information if you do not have access to a take-back program. It is important to keep all medication out of sight and reach of children as many containers (such as weekly pill minders and those for eye drops, creams, patches, and inhalers) are not child-resistant and young children can open them easily. To protect young children from poisoning, always lock safety caps and immediately place the medication in a safe location - one that is up and away and out of their sight and reach. https://www.upandaway.org What should I do in case of OVERDOSE? In case of overdose, call the poison control helpline at . Information is also available online at https://www.poisonhelp.org/help. If the victim has collapsed, had a seizure, has trouble breathing, or can't be awakened, immediately call emergency services at 911. Symptoms of overdose may include the following: ? unusual bruising or bleeding What OTHER INFORMATION should I know? Keep all appointments with your doctor. Do not let anyone else take your medication. Ask your pharmacist any questions you have about refilling your prescription. It is important for you to keep a written list of all of the prescription and nonprescription (wzut-tug-aisrcgs) medicines you are taking, as well as any products such as vitamins, minerals, or other dietary supplements. You should bring this list with you each time you visit a doctor or if you are admitted to a hospital. It is also important information to carry with you in case of emergencies. This report on medications is for your information only, and is not considered individual patient advice. Because of the changing nature of drug information, please consult your physician or pharmacist about specific clinical use. [employer] represents that the information provided hereunder was formulated with a reasonable standard of care, and in conformity with professional standards in the field. [employer] makes no representations or warranties, express or implied, including, but not limited to, any implied warranty of merchantability and/or fitness for a particular purpose, with respect to such information and specifically disclaims all such warranties. Users are advised that decisions regarding drug therapy are complex medical decisions requiring the independent, informed decision of an appropriate health care transitions nurse, and the information is provided for informational purposes only. The entire monograph for a drug should be reviewed for a thorough understanding of the drug's actions, uses and side effects. The [employer] [employer] does not endorse or recommend the use of any drug. The information is not a substitute for medical care. AHFS? Patient Medication Information?. ? Copyright, 2023. [employer]?, [address], [address], [place], [place]. All Rights Reserved. Duplication for commercial use must be authorized by [facility]. Selected Revisions: December 17, 2023. AHFS? Patient Medication Information?. ? Copyright, 2024 Susan [id number] 18:02:59 Images from the original note were not included. [id number] Carvedilol Brand Name(s): Coreg?, Coreg? CR; also available generically WHY is this medicine prescribed? Carvedilol is used alone or in combination with other medications to treat heart failure (condition in which the heart cannot pump enough blood to all parts of the body) and high blood pressure. It also is used to improve survival after a heart attack. Carvedilol is often used in combination with other medications. Carvedilol is in a class of medications called beta-blockers. It works by relaxing blood vessels and slowing heart rate to improve blood flow and decrease blood pressure High blood pressure is a common condition and when not treated, can cause damage to the brain, heart, blood vessels, kidneys and other parts of the body. Damage to these organs may cause heart disease, a heart attack, heart failure, stroke, kidney failure, loss of vision, and other problems. In addition to taking medication, making lifestyle changes will also help to control your blood pressure. These changes include eating a diet that is low in fat and salt, maintaining a healthy weight, exercising at least 30 minutes most days, not smoking, and using alcohol in moderation. HOW should this medicine be used? Carvedilol comes as a tablet and an extended-release (long-acting) capsule to take by mouth. The tablet is usually taken twice a day with food. The extended-release capsule is usually taken once a day in the morning with food. Try to take carvedilol at around the same time(s) every day. Follow the directions on your prescription label carefully, and ask your doctor or pharmacist to explain any part you do not understand. Take carvedilol exactly as directed. Do not take more or less of it or take it more often than prescribed by your doctor. Swallow the extended-release capsules whole. Do not chew or crush the capsules, and do not divide the beads inside a capsule into more than one dose. If you are unable to swallow the capsules, you may carefully open a capsule and sprinkle all of the beads it contains over a spoonful of cool or room temperature applesauce. Swallow the entire mixture immediately without chewing. Your doctor will probably start you on a low dose of carvedilol and gradually increase your dose to allow your body to adjust to the medication. Talk to your doctor about how you feel and about any symptoms you experience during this time. Carvedilol may help to control your condition but will not cure it. Continue taking carvedilol even if you feel well. Do not stop taking carvedilol without talking to your doctor. If you suddenly stop taking carvedilol, you may experience serious heart problems such as severe chest pain, a heart attack, or an irregular heartbeat. Your doctor will probably want to decrease your dose gradually over 1 to 2 weeks. Your doctor will watch you carefully and will probably tell you to avoid physical activity during this time. Are there OTHER USES for this medicine? This medication may be prescribed for other uses. Ask your doctor or pharmacist for more information. What SPECIAL PRECAUTIONS should I follow? Before taking carvedilol, The following nonprescription or herbal products may interact with carvedilol: Hanska's Wort. Be sure to let your doctor and pharmacist know that you are taking this medication before you start taking carvedilol. Do not start this medication while taking carvedilol without discussing with your healthcare provider. ? tell your doctor and pharmacist if you have are allergic to carvedilol, any other medications, or any of the ingredients in carvedilol tablets and extended- release capsules. Ask your pharmacist for a list of the ingredients. ? tell your doctor and pharmacist what prescription and nonprescription medications, vitamins, herbal products, and nutritional supplements you are taking or plan to take while taking carvedilol. Your doctor may need to change the doses of your medications or monitor you carefully for side effects. ? tell your doctor if you have or have ever had asthma or other breathing problems, a slow or irregular heartbeat, heart failure, or liver disease. Your doctor may tell you not to take carvedilol. ? tell your doctor if you have or have ever had problems with blood flow in your feet or legs, diabetes or any other condition that causes you to have low blood sugar, hyperthyroidism (condition in which there is too much thyroid hormone in the body), low blood pressure, Prinzmetal's angina (chest pain that comes at rest with no obvious cause), pheochromocytoma (a tumor that develops on a gland near the kidneys and may cause high blood pressure and fast heartbeat), or heart, kidney, or liver disease. Also tell your doctor if you have ever had a serious allergic reaction to a food or any other substance. ? tell your doctor if you are , plan to become , or are breast-feeding. If you become while taking carvedilol, call your doctor. ? if you are having surgery, including dental or eye surgery, tell the doctor, dentist, or eye doctor that you are taking carvedilol. ? you should know that this medication may make you feel tired, dizzy, or lightheaded, especially when you start taking carvedilol and when your dose is increased. Do not drive a car or operate machinery until you know how this medication affects you. Be especially careful during the first hour after you take the medication. ? you should know that carvedilol may cause dizziness, lightheadedness, and fainting, especially when you get up too quickly from a lying position. This is more common when you first start taking carvedilol. To avoid this problem, get out of bed slowly, resting your feet on the floor for a few minutes before standing up. ? you should know that carvedilol may increase the risk of hypoglycemia (low blood sugar) and prevent the warning signs and symptoms that would tell you that your blood sugar is low. Let your doctor know if you are unable to eat or drink normally or are vomiting while you are taking carvedilol. You should know the symptoms of low blood sugar and what to do if you have these symptoms. ? you should know that if you have allergic reactions to different substances, your reactions may be worse while you are taking carvedilol, and your allergic reactions may not respond to the usual doses of injectable epinephrine. ? if you wear contact lenses, your eyes may become dry during your treatment with carvedilol. Tell your doctor if this becomes bothersome. What SPECIAL DIETARY instructions should I follow? Unless your doctor tells you otherwise, continue your normal diet. What should I do IF I FORGET to take a dose? Take the missed dose as soon as you remember it. However, if it is almost time for the next dose, skip the missed dose and continue your regular dosing schedule. Do not take a double dose to make up for a missed one. What SIDE EFFECTS can this medicine cause? Some side effects may be serious. If you experience any of the following symptoms, call your doctor immediately: ? fainting ? shortness of breath ? weight gain ? swelling of the arms, hands, feet, ankles, or lower legs ? chest pain ? slow or irregular heartbeat ? rash ? hives ? itching ? swelling of the face, lips, tongue, or throat ? difficulty breathing and swallowing Carvedilol may cause other side effects. Tell your doctor if you experience any unusual problems while you are taking this medication. If you experience a serious side effect, you or your doctor may send a report to the Food and Drug Administration's (FDA) MedWatch Adverse Event Reporting program online (https://www.fda.gov/Safety/MedWatch) or by phone ( ). What should I know about STORAGE and DISPOSAL of this medication? Keep this medication in the container it came in, tightly closed, and out of reach of children. Store it at room temperature and away from excess heat and moisture (not in the bathroom). It is important to keep all medication out of sight and reach of children as many containers (such as weekly pill minders and those for eye drops, creams, patches, and inhalers) are not child-resistant and young children can open them easily. To protect young children from poisoning, always lock safety caps and immediately place the medication in a safe location - one that is up and away and out of their sight and reach. https://www.upandaway.org Unneeded medications should be disposed of in special ways to ensure that pets, children, and other people cannot consume them. However, you should not flush this medication down the toilet. Instead, the best way to dispose of your medication is through a medicine take-back program. Talk to your pharmacist or contact your local garbage/recycling department to learn about take-back programs in your community. See the FDA's Safe Disposal of Medicines website (https://goo.gl/c4Rm4p) for more information if you do not have access to a take-back program. What should I do in case of OVERDOSE? In case of overdose, call the poison control helpline at . Information is also available online at https://www.poisonhelp.org/help. If the victim has collapsed, had a seizure, has trouble breathing, or can't be awakened, immediately call emergency services at 911. Symptoms of overdose may include: ? slow heartbeat ? dizziness ? fainting ? difficulty breathing ? cough or wheezing ? vomiting ? loss of consciousness ? seizures What OTHER INFORMATION should I know? Keep all appointments with your doctor and the laboratory. Your doctor may order certain laboratory tests to check your body's response to carvedilol. Do not let anyone else take your medication. Ask your pharmacist any questions you have about refilling your prescription. It is important for you to keep a written list of all of the prescription and nonprescription (ldir-nqj-bjnyptw) medicines you are taking, as well as any products such as vitamins, minerals, or other dietary supplements. You should bring this list with you each time you visit a doctor or if you are admitted to a hospital. It is also important information to carry with you in case of emergencies. This report on medications is for your information only, and is not considered individual patient advice. Because of the changing nature of drug information, please consult your physician or pharmacist about specific clinical use. The [employer] represents that the information provided hereunder was formulated with a reasonable standard of care, and in conformity with professional standards in the field. [employer] makes no representations or warranties, express or implied, including, but not limited to, any implied warranty of merchantability and/or fitness for a particular purpose, with respect to such information and specifically disclaims all such warranties. Users are advised that decisions regarding drug therapy are complex medical decisions requiring the independent, informed decision of an appropriate health care transitions nurse, and the information is provided for informational purposes only. The entire monograph for a drug should be reviewed for a thorough understanding of the drug's actions, uses and side effects. The [employer] does not endorse or recommend the use of any drug. The information is not a substitute for medical care. AHFS? Patient Medication Information?. ? Copyright, 2023. [employer]?, [address], [address], [place]. All Rights Reserved. Duplication for commercial use must be authorized by [facility]. Selected Revisions: February 10, 2023. AHFS? Patient Medication Information?. ? Copyright, 2024 Susan [id number] 18:02:56 Images from the original note were not included. [id number] Aspirin Brand Name(s): Acuprin?, Anacin? Aspirin Regimen, Ascriptin?, Aspergum?, Aspidrox?, Aspir-Mox?, Aspirtab?, Aspir-delilah?, Cali? Aspirin, Bufferin?, Buffex?, Easprin?, Ecotrin?, Empirin?, Entaprin?, Entercote?, Fasprin?, Genacote?, Gennin-FC?, Genprin?, Halfprin?, Magnaprin?, Miniprin?, Minitabs?, Ridiprin?, Sloprin?, Uni-Buff?, Uni-Tren?, Valomag?, Zorprin?, Eve-[place]? (as a combination product containing Aspirin, Citric Acid, Sodium Bicarbonate), [place]? Extra Strength (as a combination product containing Aspirin, Citric Acid, Sodium Bicarbonate), [place]? Morning Relief (as a combination product containing Aspirin, Caffeine), [place]? Plus Flu (as a combination product containing Aspirin, Chlorpheniramine, Dextromethorphan), [place]? PM (as a combination product containing Aspirin, Diphenhydramine), Alor? (as a combination product containing Aspirin, Hydrocodone), Anacin? (as a combination product containing Aspirin, Caffeine), Anacin? Advanced Headache Formula (as a combination product containing Acetaminophen, Aspirin, Caffeine), Aspircaf? (as a combination product containing Aspirin, Caffeine), Axotal? (as a combination product containing Aspirin, Butalbital), Azdone? (as a combination product containing Aspirin, Hydrocodone), Cali? Aspirin Plus Calcium (as a combination product containing Aspirin, Calcium Carbonate), Cali? Aspirin PM (as a combination product containing Aspirin, Diphenhydramine), Cali? Back and Body Pain (as a combination product containing Aspirin, Caffeine), BC Headache (as a combination product containing Aspirin, Caffeine, Salicylamide), BC Powder (as a combination product containing Aspirin, Caffeine, Salicylamide), Damason-P? (as a combination product containing Aspirin, Hydrocodone), Emagrin? (as a combination product containing Aspirin, Caffeine, Salicylamide), Endodan? (as a combination product containing Aspirin, Oxycodone), Equagesic? (as a combination product containing Aspirin, Meprobamate), Excedrin? (as a combination product containing Acetaminophen, Aspirin, Caffeine), Excedrin? Back & Body (as a combination product containing Acetaminophen, Aspirin), Goody's? Body Pain (as a combination product containing Acetaminophen, Aspirin), Levacet? (as a combination product containing Acetaminophen, Aspirin, Caffeine, Salicylamide), Lortab? ASA (as a combination product containing Aspirin, Hydrocodone), Micrainin? (as a combination product containing Aspirin, Meprobamate), Momentum? (as a combination product containing Aspirin, Phenyltoloxamine), Norgesic? (as a combination product containing Aspirin, Caffeine, Orphenadrine), Orphengesic? (as a combination product containing Aspirin, Caffeine, Orphenadrine), Panasal? (as a combination product containing Aspirin, Hydrocodone), Percodan? (as a combination product containing Aspirin, Oxycodone), Robaxisal? (as a combination product containing Aspirin, Methocarbamol), Roxiprin? (as a combination product containing Aspirin, Oxycodone), Saleto? (as a combination product containing Acetaminophen, Aspirin, Caffeine, Salicylamide), Soma? Compound (as a combination product containing Aspirin, Carisoprodol), Soma? Compound with Codeine (as a combination product containing Aspirin, Carisoprodol, Codeine), Supac? (as a combination product containing Acetaminophen, Aspirin, Caffeine), Synalgos-DC? (as a combination product containing Aspirin, Caffeine, Dihydrocodeine), Talwin? Compound (as a combination product containing Aspirin, Pentazocine), Vanquish? (as a combination product containing Acetaminophen, Aspirin, Caffeine); also available generically Acetylsalicylic acid, ASA WHY is this medicine prescribed? Prescription aspirin is used to relieve the symptoms of rheumatoid arthritis (arthritis caused by swelling of the lining of the joints), osteoarthritis (arthritis caused by breakdown of the lining of the joints), systemic lupus erythematosus (condition in which the immune system attacks the joints and organs and causes pain and swelling) and certain other rheumatologic conditions (conditions in which the immune system attacks parts of the body). Nonprescription aspirin is used to reduce fever and to relieve mild to moderate pain from headaches, menstrual periods, arthritis, toothaches, and muscle aches. Nonprescription aspirin is also used to prevent heart attacks in people who have had a heart attack in the past or who have angina (chest pain that occurs when the heart does not get enough oxygen). Nonprescription aspirin is also used to reduce the risk of in people who are experiencing or who have recently experienced a heart attack. Nonprescription aspirin is also used to prevent ischemic strokes (strokes that occur when a blood clot blocks the flow of blood to the brain) or mini-strokes (strokes that occur when the flow of blood to the brain is blocked for a short time) in people who have had this type of stroke or mini-stroke in the past. Aspirin will not prevent hemorrhagic strokes (strokes caused by bleeding in the brain). Aspirin is in a group of medications called salicylates. It works by stopping the production of certain natural substances that cause fever, pain, swelling, and blood clots. Aspirin is also available in combination with other medications such as antacids, pain relievers, and cough and cold medications. This monograph only includes information about the use of aspirin alone. If you are taking a combination product, read the information on the package or prescription label or ask your doctor or pharmacist for more information. HOW should this medicine be used? Prescription aspirin comes as an extended-release (long-acting) tablet. Nonprescription aspirin comes as a regular tablet, a delayed-release (releases the medication in the intestine to prevent damage to the stomach) tablet, a chewable tablet, powder, and a gum to take by mouth. Prescription aspirin is usually taken two or more times a day. Nonprescription aspirin is usually taken once a day to lower the risk of a heart attack or stroke. Nonprescription aspirin is usually taken every 4 to 6 hours as needed to treat fever or pain. Follow the directions on the package or prescription label carefully, and ask your doctor or pharmacist to explain any part you do not understand. Take aspirin exactly as directed. Do not take more or less of it or take it more often than directed by the package label or prescribed by your doctor. Swallow the extended-release tablets whole with a full glass of water. Do not break, crush, or chew them. Swallow the delayed-release tablets with a full glass of water. Chewable aspirin tablets may be chewed, crushed, or swallowed whole. Drink a full glass of water, immediately after taking these tablets. Ask a doctor before you give aspirin to your child or teenager. Aspirin may cause Nikkie's syndrome (a serious condition in which fat builds up on the brain, liver, and other body organs) in children and teenagers, especially if they have a virus such as chicken pox or the flu. If you have had oral surgery or surgery to remove your tonsils in the last 7 days, talk to your doctor about which types of aspirin are safe for you. Delayed-release tablets begin to work some time after they are taken. Do not take delayed-release tablets for fever or pain that must be relieved quickly. Stop taking aspirin and call your doctor if your fever lasts longer than 3 days, if your pain lasts longer than 10 days, or if the part of your body that was painful becomes red or swollen. You may have a condition that must be treated by a doctor. Are there OTHER USES for this medicine? Aspirin is also sometimes used to treat rheumatic fever (a serious condition that may develop after a strep throat infection and may cause swelling of the heart valves) and Kawasaki disease (an illness that may cause heart problems in children). Aspirin is also sometimes used to lower the risk of blood clots in patients who have artificial heart valves or certain other heart conditions and to prevent certain complications of . What SPECIAL PRECAUTIONS should I follow? Before taking aspirin, ? tell your doctor and pharmacist if you are allergic to aspirin, other medications for pain or fever, tartrazine dye, or any other medications. ? tell your doctor and pharmacist what prescription and nonprescription medications, vitamins, nutritional supplements, and herbal products you are taking or plan to take. Be sure to mention any of the following: acetazolamide (Diamox); angiotensin-converting enzyme (DANILO) inhibitors such as benazepril (Lotensin), captopril (Capoten), enalapril (Vasotec), fosinopril (Monopril), lisinopril (Prinivil, Zestril), moexipril (Univasc), perindopril, (Aceon), quinapril (Accupril), ramipril (Altace), and trandolapril (Mavik); anticoagulants ('blood thinners') such as warfarin (Coumadin) and heparin; beta blockers such as atenolol (Tenormin), labetalol (Normodyne), metoprolol (Lopressor, Toprol XL), nadolol (Corgard), and propranolol (Inderal); diuretics ('water pills'); medications for diabetes or arthritis; medications for gout such as probenecid and sulfinpyrazone (Anturane); methotrexate (Trexall); other nonsteroidal anti-inflammatory drugs (NSAIDs) such as naproxen (Aleve, Naprosyn); phenytoin (Dilantin); and valproic acid (Depakene, Depakote). Your doctor may need to change the doses of your medications or monitor you more carefully for side effects. ? if you are taking aspirin on a regular basis to prevent heart attack or stroke, do not take ibuprofen (Advil, Motrin) to treat pain or fever without talking to your doctor. Your doctor will probably tell you to allow some time to pass between taking your daily dose of aspirin and taking a dose of ibuprofen. ? tell your doctor if you have or have ever had asthma, frequent stuffed or runny nose, or nasal polyps (growths on the linings of the nose). If you have these conditions, there is a risk that you will have an allergic reaction to aspirin. Your doctor may tell you that you should not take aspirin. ? tell your doctor if you often have heartburn, upset stomach, or stomach pain and if you have or have ever had ulcers, anemia, bleeding problems such as hemophilia, or kidney or liver disease. ? tell your doctor if you are , you plan to become , or if you are breast-feeding. Low dose aspirin 81-mg may be taken during , but aspirin doses greater that 81 mg may harm the fetus and cause problems with delivery if it is taken around 20 weeks or later during . Do not take aspirin doses greater that 81 mg (e.g., 325 mg) around or after 20 weeks of , unless told to do so by your doctor. If you become while taking aspirin or aspirin containing medications, call your doctor. ? if you are having surgery, including dental surgery, tell the doctor or dentist that you are taking aspirin. ? if you drink three or more alcoholic drinks every day, ask your doctor if you should take aspirin or other medications for pain and fever. What SPECIAL DIETARY instructions should I follow? Unless your doctor tells you otherwise, continue your normal diet. What should I do IF I FORGET to take a dose? If your doctor has told you to take aspirin on a regular basis and you miss a dose, take the missed dose as soon as you remember it. However, if it is almost time for the next dose, skip the missed dose and continue your regular dosing schedule. Do not take a double dose to make up for a missed one. What SIDE EFFECTS can this medicine cause? Some side effects can be serious. If you experience any of the following symptoms, call your doctor immediately: ? hives ? rash ? swelling of the eyes, face, lips, tongue, or throat ? wheezing or difficulty breathing ? hoarseness ? fast heartbeat ? fast breathing ? cold, clammy skin ? ringing in the ears ? loss of hearing ? bloody vomit ? vomit that looks like coffee grounds ? bright red blood in stools ? black or tarry stools Aspirin may cause other side effects. Call your doctor if you experience any unusual problems while you are taking this medication. If you experience a serious side effect, you or your doctor may send a report to the Food and Drug Administration's (FDA) MedWatch Adverse Event Reporting program online (https://www.fda.gov/Safety/MedWatch) or by phone ( ). What should I know about STORAGE and DISPOSAL of this medication? Keep this medication in the container it came in, tightly closed, and out of reach of children. Store it at room temperature and away from excess heat and moisture (not in the bathroom). Dispose of any tablets that have a strong vinegar smell. It is important to keep all medication out of sight and reach of children as many containers (such as weekly pill minders and those for eye drops, creams, patches, and inhalers) are not child-resistant and young children can open them easily. To protect young children from poisoning, always lock safety caps and immediately place the medication in a safe location - one that is up and away and out of their sight and reach. https://www.upandaway.org Unneeded medications should be disposed of in special ways to ensure that pets, children, and other people cannot consume them. However, you should not flush this medication down the toilet. Instead, the best way to dispose of your medication is through a medicine take-back program. Talk to your pharmacist or contact your local garbage/recycling department to learn about take-back programs in your community. See the FDA's Safe Disposal of Medicines website (https://goo.gl/[email or web address]) for more information if you do not have access to a take-back program. What should I do in case of OVERDOSE? In case of overdose, call the poison control helpline at . Information is also available online at https://www.poisonhelp.org/help. If the victim has collapsed, had a seizure, has trouble breathing, or can't be awakened, immediately call emergency services at 598. Symptoms of overdose may include: ? burning pain in the throat or stomach ? vomiting ? decreased urination ? fever ? restlessness ? irritability ? talking a lot and saying things that do not make sense ? fear or nervousness ? dizziness ? double vision ? uncontrollable shaking of a part of the body ? confusion ? abnormally excited mood ? hallucination (seeing things or hearing voices that are not there) ? seizures ? drowsiness ? loss of consciousness for a period of time What OTHER INFORMATION should I know? Keep all appointments with your doctor. If you are taking prescription aspirin, do not let anyone else take your medication. Ask your pharmacist any questions you have about refilling your prescription. It is important for you to keep a written list of all of the prescription and nonprescription (rpsm-hrd-pdnddov) medicines you are taking, as well as any products such as vitamins, minerals, or other dietary supplements. You should bring this list with you each time you visit a doctor or if you are admitted to a hospital. It is also important information to carry with you in case of emergencies. This report on medications is for your information only, and is not considered individual patient advice. Because of the changing nature of drug information, please consult your physician or pharmacist about specific clinical use. The [employer] [employer] represents that the information provided hereunder was formulated with a reasonable standard of care, and in conformity with professional standards in the field. The [employer] makes no representations or warranties, express or implied, including, but not limited to, any implied warranty of merchantability and/or fitness for a particular purpose, with respect to such information and specifically disclaims all such warranties. Users are advised that decisions regarding drug therapy are complex medical decisions requiring the independent, informed decision of an appropriate health care transitions nurse, and the information is provided for informational purposes only. The entire monograph for a drug should be reviewed for a thorough understanding of the drug's actions, uses and side effects. The [employer] does not endorse or recommend the use of any drug. The information is not a substitute for medical care. AHFS? Patient Medication Information?. ? Copyright, 2023. The [employer]?, [address], [address], [place], [place]. All Rights Reserved. Duplication for commercial use must be authorized by [facility]. Selected Revisions: November 10, 2020. AHFS? Patient Medication Information?. ? Copyright, 2024 [facility]kmxryr8681-48-52 17:41:58 As per MD Ledezma DANILO/ARB not prescribed d/t low BP. Dr. Ledezma stated she would document [facility]2025-03-12 17:27:48 Report called at [facility] to Kingsley Sequeira RN.. pt going to room [address] [facility]2025-03-12 15:12:28 The patient is Moderately Stable - Low risk of patient condition declining or worsening The patient's goals for the shift include get better The clinical goals for the shift include safety, hemodynamically stable [place] 180145-03-12 01:57:59 The patient is Moderately Stable - Low risk of patient condition declining or worsening The patient's goals for the shift include get better The clinical goals for the shift include vs stable, pain free, safety [place] [id number] 23:40:52 The patient is Moderately Stable - Low risk of patient condition declining or worsening The patient's goals for the shift include get better The clinical goals for the shift include vs stable, pain free, safety [place] 180145-03-11 04:11:51 The patient is Moderately Stable - Low risk of patient condition declining or worsening The patient's goals for the shift include get better The clinical goals for the shift include vs stable, pain controlled, safety [facility]2025-03-10 06:10:00 Patient complaining of " heavyness on chest" after administering PRBC. Patient vitals were within normal ranges. Patient on 3 Liters and 100% o2. Did EKG, first one showed stemi second showed normal sinus, Paged dr. Ko, did not call back. Notified STRAIGHT RULING MACHINE OPERATOR [place] and she spoke with dr. Ko and confirmed it was not stemi and patient reports now feeling better, Care ongoing. [place] [id number] 20:53:39 The patient is Moderately Stable - Low risk of patient condition declining or worsening The patient's goals for the shift include Hemodynamic stable, get better The clinical goals for the shift include Hemodynaic stable, safety [facility]2025-03-09 17:27:28 The patient is Moderately Unstable - Medium risk of patient condition declining or worsening The patient's goals for the shift include Stable pain control The clinical goals for the shift include Pain control [facility]2025-03-08 23:02:05 The patient is Moderately Stable - Low risk of patient condition declining or worsening The patient's goals for the shift include Stable pain control The clinical goals for the shift include Pain control [place] [address]-03-08 23:01:34 The patient is Moderately Stable - Low risk of patient condition declining or worsening The patient's goals for the shift include Stable pain control The clinical goals for the shift include Pain control [place] [id number] 15:13:00 The patient is Moderately Unstable - Medium risk of patient condition declining or worsening The patient's goals for the shift include vital signs stable The clinical goals for the shift include pain control [place] [address]-03-07 21:56:17 The patient is Moderately Unstable - Medium risk of patient condition declining or worsening The patient's goals for the shift include ambulate The clinical goals for the shift include ambulate Over the shift, the patient did not make progress toward the following goals. [place] [address]-03-07 14:24:50 The patient is Moderately Stable - Low risk of patient condition declining or worsening The patient's goals for the shift include ambulate The clinical goals for the shift include ambulate Over the shift, the patient did not make progress toward the following goals. Barriers to progression include ,. Recommendations to address these barriers include ,. [place] [address]-03-07 04:26:50 The patient is Moderately Stable - Low risk of patient condition declining or worsening The patient's goals for the shift include ambulate The clinical goals for the shift include ambulate Over the shift, the patient did not make progress toward the following goals. Barriers to progression include .. Recommendations to address these barriers include .. [place] [address]-03-06 18:14:20 Patientis transferred over from CVICU, patient is alert and oriented Chest tube and epicardial wire connected to Pacing box VVI 50 - 12 . Graff out at 1730 due to void [place] [address]-03-06 16:29:19 The patient is Moderately Stable - Low risk of patient condition declining or worsening The patient's goals for the shift include ambulate The clinical goals for the shift include ambulate [place] [address]-03-06 11:51:00 The patient is Moderately Stable - Low risk of patient condition declining or worsening The patient's goals for the shift include ambulate The clinical goals for the shift include ambulate in the hallway Problem: Pain - Adult Goal: Verbalizes/displays adequate comfort level or baseline comfort level Outcome: Ongoing Problem: Pain - Adult Goal: Verbalizes/displays adequate comfort level or baseline comfort level Outcome: Ongoing [facility]2025-03-06 03:00:21 The patient is Moderately Stable - Low risk of patient condition declining or worsening The patient's goals for the shift include stable and no pain The clinical goals for the shift include stable and no pain Over the shift, the patient did not make progress toward the following goals. Barriers to progression include . Recommendations to address these barriers include . [facility]2025-03-05 09:42:00 The patient is Moderately Unstable - Medium risk of patient condition declining or worsening The patient's goals for the shift include pain control The clinical goals for the shift include out of bed to chair [facility]2025-03-05 00:46:42 The patient is Unstable - High likelihood or risk of patient condition declining or worsening The patient's goals for the shift include pain control The clinical goals for the shift include stable vital signs Over the shift, the patient did not make progress toward the following goals. Barriers to progression include . Recommendations to address these barriers include Problem: Pain - Adult Goal: Verbalizes/displays adequate comfort level or baseline comfort level Outcome: Ongoing Problem: Safety - Adult Goal: Free from fall injury Outcome: Ongoing Flowsheets (Taken 08/30/20241999) Free from fall injury: Instruct family/caregiver on patient safety Problem: Discharge Planning Goal: Discharge to home or other facility with appropriate resources Outcome: Ongoing Problem: Chronic Conditions and Co-morbidities Goal: Patient's chronic conditions and co-morbidity symptoms are monitored and maintained or improved Outcome: Ongoing Flowsheets (Taken 08/30/20241999) Care Plan - Patient's Chronic Conditions and Co-Morbidity Symptoms are Monitored and Maintained or Improved: Monitor and assess patient's chronic conditions and comorbid symptoms for stability, deterioration, or improvement . [place] [address]-03-04 14:35:25 The patient is Moderately Stable - Low risk of patient condition declining or worsening The patient's goals for the shift include stable and no pain The clinical goals for the shift include stable and no pain [place] [address]-03-04 03:27:22 The patient is Moderately Stable - Low risk of patient condition declining or worsening The patient's goals for the shift include stable and no pain The clinical goals for the shift include stable and no pain Over the shift, the patient did not make progress toward the following goals. Barriers to progression include . Recommendations to address these barriers include . [place] [address]-03-03 15:45:24 The patient is Moderately Stable - Low risk of patient condition declining or worsening The patient's goals for the shift include stable and no pain The clinical goals for the shift include hemodynamically stable [place] [address]-03-03 03:32:58 The patient is Moderately Stable - Low risk of patient condition declining or worsening The patient's goals for the shift include stable and no pain The clinical goals for the shift include hemodynamically stable Over the shift, the patient make progress toward the following goals, wean pressors, hemodynamically stable. Barriers to progression include increasing activity level. Recommendations to address these barriers include try to increase activity level. [place] [address]-03-02 16:44:33 The patient is Moderately Stable - Low risk of patient condition declining or worsening The patient's goals for the shift include stable and no pain The clinical goals for the shift include hemodynamically stable Over the shift, the patient did not make progress toward the following goals. Barriers to progression include . Recommendations to address these barriers include . [facility]2025-03-02 04:30:50 The patient is Moderately Unstable - Medium risk of patient condition declining or worsening The patient's goals for the shift include stable and no pain The clinical goals for the shift include hemodynamically stable Over the shift, the patient did make progress toward the following goals urine output increased significantly after given lasix 20mg IVP and albumin 100ml IV, able to decrease pressors rate. Barriers to progression include patient's cardiac condition still unstable, patient's blood pressure dropped while turning in bed for bath. Recommendations to address these barriers include patient weight increasing daily, might be still fluid overload and need more diuretics,wean down pressors and better thermodynamical performance are the goals. [facility]2025-03-01 16:41:57 The patient is Moderately Stable - Low risk of patient condition declining or worsening The patient's goals for the shift include stable and no pain The clinical goals for the shift include hemodynamically stable Over the shift, the patient did not make progress toward the following goals. Barriers to progression include . Recommendations to address these barriers include . [facility]2025-03-01 02:21:05 The patient is Moderately Stable - Low risk of patient condition declining or worsening The patient's goals for the shift include stable and no pain The clinical goals for the shift include hemodynamically stable Over the shift, the patient did not make progress toward the following goals. Barriers to progression include . Recommendations to address these barriers include . [facility]2025-02-28 19:35:08 1300 PATIENT ARRIVED TO ICU 1820 EXTUBATED TO O2 4LI 1841 EPISODE OF LOW BP T O 50'S, CODE BLUE CALLED, patient awake following commands, epi and levo increased to 10 and 10mic, pacing started at 80/mt, no compressions given, 1845 drips back to 2 and 2 travon [facility] [id number] 00:34:13Scheduled Procedures Health Maintenance Due Date Last Done Comments CT Colonography 1955 Colonoscopy 1955 Colorectal Cancer Screening 1955 FIT-DNA 1955 FIT 1955 FOBT 1955 Medicare Annual Wellness (AWV) 1955 Sigmoidoscopy 1955 Diabetes: Foot Exam 10/17/1965 Respiratory Syncytial Virus (RSV) or >=60 (1 - Risk 60-74 years 1-dose series) 2015 Pneumococcal Vaccine: 65+ Years (2 of 2 - PCV) 10/17/2020 02/19/2017 Annual Physical 04/18/2022 04/18/2021 Diabetes: Retinopathy Screening 09/19/2023 09/18/2022, 03/17/2022, 11/07/2021 Diabetes: Urine Protein Screening 01/08/2024 01/07/2023, 09/30/2022, 06/11/2021 Influenza Vaccine (#1) 2024 , 05/04/2022, 04/01/2018 Zoster Vaccines (3 of 3) 04/12/2024 02/16/2024, 01/28 Diabetes: Hemoglobin A1C 11/22/2024 025, 06/24/2024, 01/07/2023, Additional history exists Lipid Panel 08/25/2025 08/25/2024, 05/30, 09/30/2022, Additional history exists Mammogram 05/10/2026 05/10/2024, 09/19/2021 DTaP/Tdap/Td Vaccines (2 - Td or Tdap) 02/19/2027 02/19/2017, 11/13/2008 Bone Density Scan Completed 04/18/2021, 04/18/2021 HIB Vaccines Aged Out No longer eligi ble based on patient's age to complete this topic HPV Vaccines Aged Out No longer eligi ble based on patient's age to complete this topic Hepatitis A Vaccines Aged Out No long er eligible based on patient's age to complete this topic Hepatitis B Vaccines Aged Out No long er eligible based on patient's age to complete this topic IPV Vaccines Aged Out No longer eligi ble based on patient's age to complete this topic Meningococcal Vaccine Aged Out No berta juli eligible based on patient's age to complete this topic Rotavirus Vaccines Aged Out No longer eligible based on patient's age to complete this topic [facility]72 [facility]:34[facility]13 [facility]vvbbbv2263-77-11 17:16:52 Images from the original note were not included. 19015 Using an Incentive Spirometer An incentive spirometer is a device that helps you do deep breathing exercises after surgery. Or it helps lower the risk for breathing problems if you have a lung disease or condition. These exercises expand your lungs, aid in circulation, and may help prevent pneumonia. Deep breathing exercises also help you breathe better and improve the function of your lungs by: ? Keeping your lungs clear ? Strengthening your breathing muscles ? Helping prevent respiratory complications or problems The incentive spirometer gives you a way to take an active part in your recovery. A nurse or respiratory therapist will teach you breathing exercises. To do these exercises, you will breathe in through your mouth and not your nose. The incentive spirometer only works correctly if you breathe in through your mouth. Deep breathing expands the lungs, aids circulation, and helps prevent pneumonia. Your healthcare provider or their staff will tell you how to use the device, your targeted volume(s), and provide other helpful tips to prevent complications (such as pain, dizziness, feeling lightheaded) when blowing in the incentive spirometer. Steps to clear lungs Step 1. Exhale normally. Then, inhale normally. ? Relax and breathe out. Step 2. Place your lips tightly around the mouthpiece. ? Make sure the device is upright and not tilted. ? Sit up and breathe out (exhale) fully ? Tightly seal your lips around the mouthpiece Step 3. Inhale as much air as you can through the mouthpiece. Don't breathe through your nose. ? Breathe in (inhale) slowly and deeply. ? Hold your breath long enough to keep the balls, piston, or disk raised for at least 3 to 5seconds, or as instructed by your healthcare provider. ? Exhale slowly to allow the balls, piston, or disk to fall before repeating again. Note: Some spirometers have an indicator to let you know that you are breathing in too fast. If the indicator goes off, breathe in more slowly. Step 4. Repeat the exercise regularly. ? Do sets of 10 exercises every hour while you're awake, or as instructed by your healthcare provider. Don't do more than 30 breaths in each set. ? If you were taught deep breathing and coughing exercises, do them regularly as instructed by your provider, nurse, or respiratory therapist. Follow-up care Make a follow-up appointment, or as directed by your healthcare provider. Also follow up with your provider as advised if your symptoms don't improve or continue to get worse. When to call your healthcare provider Call your healthcare provider right away if you have any of these: ? Fever 100.4? (38?C) or higher, or as advised by your provider ? Brownish, bloody, or smelly sputum (phlegm that you cough up) Call 911 Call 911 if any of these occur: ? Shortness of breath that doesn't get better after taking your medicine ? Cool, moist, pale, or blue skin ? Trouble breathing or swallowing, wheezing ? Fainting or loss of consciousness ? Feeling of dizziness or weakness, or a sudden drop in blood pressure ? Feeling very ill ? Lightheadedness ? Chest pain or rapid heart rate Last Reviewed Date: 2021 00:00:00 ? [id number] [employer] All rights reserved. This information is not intended as a substitute for professional medical care. Always follow your healthcare professional's instructions. [facility]2025-02-26 17:16:50 Images from the original note were not included. Using Chlorhexidine Gluconate (CHG) Liquid Soap Before Surgery - Video Watch this to learn how to shower with CHG liquid soap before surgery. To view the video go to this web address: [email or web address] Or, scan this QR code with your smart phone ? [facility]2025-02-26 17:16:47 Images from the original note were not included. 55515 Types of Anesthesia Your anesthesiologist is a doty member of your surgical team. They give you medicines (anesthetics) to keep you comfortable and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
[2024-10-23 15:34] LABS: Absolute Eosinophils 0.4 K/uL (0-0.5); Absolute Lymphocytes (CBC) 2.6 K/uL (0.7-4.9); Absolute Monocytes 0.6 K/uL (0.1-1.3); Absolute Neutrophil 3.4 K/uL (1.8-8.0); Basophils % 0.5 % (0-1.3); Eosinophils % 5.4 % (0-4.4); Hematocrit 37.2 % (36.0-45.0); Hemoglobin 12.3 g/dL (12.0-15.0); Lymphocytes % 37.3 % (15.3-44.8); MCH 27.4 pg (27.0-35.0); MCV 83.1 fL (80-100); MPV 8.2 fL (7.6-11.3); Monocytes % 8.5 % (3.3-12.3); Neutrophils % 48.3 % (41.7-73.7); Nucleated Red Blood Cells % 0.2 % (0-0); Platelets 134 thou/uL (152-406); RBC Red Blood Cell Count 4.48 M/uL (3.86-4.86); Red Cell Distribution Width 20.8 % (12.1-15.2)
[2024-10-23 15:54] LABS: AST/SGOT 27 U/L (15-37); Albumin 3.2 g/dL (3.4-5.0); Albumin/Globulin Ratio 0.7 (1.1-1.8); Alkaline Phosphatase 83 U/L (45-117); Anion Gap 6.6 mEq/L (5.0-15.0); BUN Blood Urea Nitrogen 18 mg/dL (7-18); Bicarbonate 29 mEq/L (21-32); Bilirubin Total 0.5 mg/dL (0.2-1.0); Globulin 4.8 g/dL (2.3-3.5); Glomerular Filtration Rate 58 ml/min (=/>90); Glucose Level 173 mg/dL (74-106); Potassium 3.6 mEq/L (3.5-5.1); Sodium Level 140 mEq/L (136-145)
[2024-10-23 15:56] LABS: ALT/SGPT < 14 U/L (13-56)
--- NOTE | 2024-10-23 16:03 | ER ---
Nurse's Notes [facility] Name: Viridiana Veliz Age: 69 yrs Sex: Female : 1955 Arrival Date: 10/23/2024 Time: 13:14 Bed DX3 Private MD: Diagnosis: Other disturbances of smell and taste Presentation: 10/23 13:30 Chief complaint: Patient states: for about a week patient has had a metallic taste in me1 her mouth and a bad smell that causes her to be nauseated. Coronavirus screen: Vaccine status: Patient reports receiving the 2nd dose of the covid vaccine. Ebola Screen: No symptoms or risks identified at this time. Initial Sepsis Screen: Does the patient meet any 2 criteria? No. Patient's initial sepsis screen is negative. Does the patient have a suspected source of infection? No. Patient's initial sepsis screen is negative. Risk Assessment: Do you want to hurt yourself or someone else? Patient reports no desire to harm self or others. Onset of symptoms is unknown. 13:30 Method Of Arrival: Amb[place] [facility] 13:30 Acuity: KEVIN 3 me1 Triage Assessment: 13:30 General: Appears in no apparent distress. well groomed, well developed, well nourished, me1 Behavior is calm, cooperative, appropriate for age. Pain: Denies pain. EENT: Reports metallic taste in mouth. Neuro: Level of Consciousness is awake, alert, obeys commands, Oriented to person, place, time, situation, Appropriate for age. Cardiovascular: Patient's skin is warm and dry. Respiratory: Airway is patent Respiratory effort is even, unlabored, Respiratory pattern is regular, symmetrical. GI: Reports nausea. : No signs and/or symptoms were reported regarding the genitourinary system. Derm: Skin is intact, is healthy with good turgor, Skin is pink, warm \T\ dry. Musculoskeletal: No signs and/or symptoms reported regarding the musculoskeletal system. Historical: - Allergies: 13:32 PENICILLINS; me1 - PMHx: 13:32 Diabetes mellitus; Myocardial infarction; me1 - PSHx: 13:32 Coronary artery bypass graft; me1 - Immunization history:: Adult Immunizations up to date. - Infectious Disease History:: Denies. - Social history:: Smoking status: Patient denies any tobacco usage or history of. Screenin:11 [facility] ED Fall Risk Assessment (Adult) History of falling in the last 3 months, me1 including since admission No falls in past 3 months (0 pts) Confusion or Disorientation No (0 pts) Intoxicated or Sedated No (0 pts) Impaired Gait No (0 pts) Mobility Assist Device Used No (0 pt) Altered Elimination No (0 pt) Score/Fall Risk Level 0 - 2 = Low Risk Maintained a safe environment, Provided non-skid footwear, Hourly rounding (assess needs \T\ fall precautionary measures) done. Abuse screen: Denies threats or abuse. Nutritional screening: No deficits noted. Tuberculosis screening: No symptoms or risk factors identified. Assessment: 15:26 Reassessment: IV started, labs sent. Pt placed back in lobby with spouse and notified ss of wait time. 16:11 General: See triage assessment. me1 Vital Signs: 13:30 BP 145 / 77; Pulse 84; Resp 16; Temp 98.4; Pulse Ox 97% ; Weight 72.57 kg; Height 5 ft. me1 5 in. ; Pain 0/10; 16:16 BP 138 / 72; Pulse 87; Resp 15; Temp 98.1; Pulse Ox 98% ; me1 13:30 Body Mass Index 26.63 (72.57 kg, 165.1 cm) me1 13:30 Pain Scale: Adult me1 ED Course: 13:19 Patient arrived in ED. cj3 13:32 Xochitl Lilly FNP-C [facility]. kb 13:32 Hung Shields MD is Attending Physician. kb 13:32 Triage completed. me1 13:32 Arm band placed on Patient placed in waiting room. me1 15:26 Inserted saline lock: 22 gauge in left antecubital area, using aseptic technique. Blood ss collected. Flushed with 10 mL NS. 15:26 CMP Sent. ss 15:26 CBC with Diff Sent. ss 16:11 Patient has correct armband on for positive identification. Call light in reach. me1 Provided Education on: POC. Verbalized understanding.. 16:11 No provider procedures requiring assistance completed. me1 16:16 IV discontinued, intact, bleeding controlled, No redness/swelling at site. Pressure me1 dressing applied. Administered Medications: No medications were administered Medication: 16:11 VIS not applicable for this client. me1 Outcome: 16:02 Discharge ordered by . cheryl 16:16 Discharged to home ambulatory, me1 16:16 Condition: stable 16:16 Discharge instructions given to patient, Instructed on discharge instructions, follow up and referral plans. Demonstrated understanding of instructions, follow-up care, 16:17 Patient left the ED. me1 Signatures: Xochitl Lilly, DELIVERY DRIVER-C DELIVERY DRIVER-CkMarleen Kitchen RN RN Oliva Monroe RN RN ma1 Hoda Anderson 3
--- NOTE | 2024-10-23 16:03 | EDPHYS ---
Physician Documentation [facility] Name: Viridiana Veliz Age: 69 yrs Sex: Female : 1955 Arrival Date: 10/23/2024 Time: 13:14 Bed DX3 Private MD: ED Physician Hung Shields HPI: 10/23 13:36 This 69 yrs old Female presents to ER via Ambulatory with complaints of Metalic Taste kb in Mouth, Bad Smell. 13:36 Patient is a 69-year-old female who presents for metallic taste in mouth and bad smell kb that causes her to be nauseated. States she had a CABG in July 2024 and thought maybe it was due to medications that she started. Has been concerned that it is her kidney function because she is on a fluid restriction. Denies chest pain, shortness of breath, fever, vomiting, diarrhea.. Historical: - Allergies: 13:32 PENICILLINS; me1 - PMHx: 13:32 Diabetes mellitus; Myocardial infarction; me1 - PSHx: 13:32 Coronary artery bypass graft; me1 - Immunization history:: Adult Immunizations up to date. - Infectious Disease History:: Denies. - Social history:: Smoking status: Patient denies any tobacco usage or history of. ROS: 13:36 Constitutional: As per HPI kb Exam: 13:36 Constitutional: This is a well developed, well nourished patient who is awake, alert, kb and in no acute distress. Head/Face: Normocephalic, atraumatic. ENT: Moist Mucous membranes Cardiovascular: Regular rate Respiratory: Respirations even and unlabored. No increased work of breathing. Talking in full sentences Abdomen/GI: Soft, non-tender. No distention Skin: Warm, dry with normal turgor. Normal color. MS/ Extremity: Pulses equal, no cyanosis. Neurovascular intact. Full, normal range of motion. Neuro: Awake and alert, GCS 15, oriented to person, place, time, and situation. Vital Signs: 13:30 BP 145 / 77; Pulse 84; Resp 16; Temp 98.4; Pulse Ox 97% ; Weight 72.57 kg; Height 5 ft. me1 5 in. ; Pain 0/10; 16:16 BP 138 / 72; Pulse 87; Resp 15; Temp 98.1; Pulse Ox 98% ; me1 13:30 Body Mass Index 26.63 (72.57 kg, 165.1 cm) me1 13:30 Pain Scale: Adult me1 MDM: 13:32 Medical Screening Exam initiated kb 16:01 Differential diagnosis: Abnormal electrolytes, adverse reaction to medication, renal kb insufficiency. Data reviewed: vital signs, nurses notes. Historians other than the Patient: Spouse/Significant Other: Significant other. Counseling: I had a detailed discussion with the patient and/or guardian regarding the historical points, exam findings, and any diagnostic results supporting the discharge/admit diagnosis, lab results, the need for outpatient follow up, a family practitioner, to return to the emergency department if symptoms worsen or persist or if there are any questions or concerns that arise at home. 10/23 13:35 Order name: CBC with Diff; Complete Time: 16:11 kb 10/23 13:35 Order name: CMP; Complete Time: 15:57 kb 10/23 15:39 Order name: CBC Smear Scan; Complete Time: 16:11 EDMS 10/23 13:35 Order name: IV Start; Complete Time: 15:26 kb Administered Medications: No medications were administered Disposition Summary: 10/23/24 16:02 Discharge Ordered Notes: Location: Home kb Condition: Stable kb Diagnosis - Other disturbances of smell and taste kb Followup: kb - With: Emergency Department - When: As needed - Reason: Worsening of condition Followup: kb - With: Private Physician - When: 2 - 3 days - Reason: Recheck today's complaints, Continuance of care, Re-evaluation by your physician Forms: - Medication Reconciliation Form kb - Antibiotic Education kb - Prescription Opioid Use kb - Patient Portal Instructions kb - Leadership Thank You Letter kb Signatures: Dispatcher [employer] Xochitl Anthony, PACKAGER AND STRAPPER-C GLENIS-Oliva Velasquez, RN RN me1
[2024-10-23 16:10] LABS: Anisocytosis SLIGHT; Blood Morphology Comment NOTED (NOT SEEN); Platelet Estimate ADEQ; White Blood Cell Scan OK (OK)
[2024-10-25 06:05] VITALS: BP 138/72; TEMP 98.1; O2SAT 98
== END 2024-10-23 16:17 | disposition home or self-care (01) ==
LOC: ER 13:14
DX: R43.8 Other disturbances of smell and taste (principal); E11.9 Type 2 diabetes mellitus without complications; I25.2 Old myocardial infarction; Z95.1 Presence of aortocoronary bypass graft
CPT/HCPCS: 36415; 80053; 85025; 99284